=== PATIENT | male | born 1975 | race Caucasian/White ===

== ENCOUNTER 2018-08-28 21:07 | Outpatient (REF) | payer OTHER, SELFPAY ==
[2018-08-28 21:29] LABS: Cholesterol 181 mg/dL (50-200); Glucose 98 mg/dL (70-100); HDL Cholesterol 30 mg/dL (40-60); LDL CHOLESTEROL 113 mg/dL (<100); Triglyceride 315 mg/dL (30-150)
[2018-08-28 21:30] LABS: Hemoglobin A1C 5.5 % (4.5-6.2)
== END 2018-08-28 21:27 ==
LOC: NCHCN 21:07
PROVIDERS: PCP Internal Medicine; Visit Provider Internal Medicine
DX: R73.9 Hyperglycemia, unspecified (principal)
CPT/HCPCS: 80061; 82947; 83721; 83036

== ENCOUNTER 2018-11-25 19:15 | Emergency (ER) | payer OTHER, SELFPAY ==
[2018-11-25] VITALS (37 sets, daily range): BP systolic 133–176; BP diastolic 72–108; PULSE 70–91; RESP 9–27; TEMP 36.9; O2SAT 90–98
[2018-11-25] MEDS: Ondansetron 4 MG/2 ML VIAL (19:49)
--- NOTE | 2018-11-25 19:54 | ED.GENADUL_ITS ---
Discharge Plan Disposition Patient Disposition: HOME Condition: Good Discharge Details Chief Complaint: Chest Pain Clinical Impression: Chest pain Primary Care Provider: Ryne Harris ED Provider: Chaim Colvin Meds and New Rx's Prescriptions: Continued Chantix 0.5 mg Tablet 0.5 mg PO DAILY RF: 0 Discharge Instructions Instructions: Chest Pain (ED) Additional Instructions: Please call your primary care tomorrow for follow-up. You should probably get an outpatient stress test but your workup tonight does not suggest any acute pathology. CT scan was negative. EKG was normal. Cardiac enzymes x2 were normal. Please return to the emergency department for new or worsening pain, shortness of breath, persistent vomiting, fever, other concerns. Referrals: Ryne Harris MD [Primary Care Provider] - Medical Decision Making <Nixon Woodard MD - Last Filed: 11/25/18 20:14> 43-year-old male presents from home complaining of the abrupt onset of substernal chest discomfort that radiates to his back. He states he began with nausea and an episode of emesis following which the epigastric discomfort increased. He arrives with hypertension and otherwise normal vital signs. He is somewhat tender in epigastrium on palpation. Diagnosis would include for the pathology such as pancreatitis, biliary colic, as well as ACS or aortic dissection. Patient IV access established, given parenteral medications comfort for laboratory testing EKG and CT imaging. Case to be signed out to Dr. Colvin pending his diagnostic studies. Please see his note regarding the patient's diagnostic studies and disposition. Lab Data Lab results reviewed: Yes I reviewed the patient's lab results. Laboratory Results - last 24 hr 11/25/18 11/25/18 11/25/18 19:25 19:25 19:25 WBC 13.71 H RBC 5.11 Hgb 16.8 Hct 46.6 MCV 91.2 MCH 32.9 MCHC 36.1 H RDW 12.6 Plt Count 255 MPV 9.5 Immature Gran % 0.2 Neutrophils % 69.2 Lymphocytes % 23.3 Monocytes % 6.3 Eosinophils % 0.7 Basophils % 0.3 Absolute Neutrophils 9.49 H Absolute Lymphocytes 3.19 Absolute Monocytes 0.86 H Absolute Eosinophils 0.10 Absolute Basophils 0.04 APTT 24.0 Sodium 137 Potassium 3.5 Chloride 100 Carbon Dioxide 25.8 Anion Gap 11.2 H BUN 15 Creatinine 1.00 Estimated GFR/1.73 m2 >= 60.00 Glucose 93 Calcium 9.0 Magnesium 1.7 L Total Bilirubin 0.5 AST 24 ALT 63 Alkaline Phosphatase 81 Troponin I 0.03 Total Protein 7.7 Albumin 4.3 Lipase 11/25/18 19:25 WBC RBC Hgb Hct MCV MCH MCHC RDW Plt Count MPV Immature Gran % Neutrophils % Lymphocytes % Monocytes % Eosinophils % Basophils % Absolute Neutrophils Absolute Lymphocytes Absolute Monocytes Absolute Eosinophils Absolute Basophils APTT Sodium Potassium Chloride Carbon Dioxide Anion Gap BUN Creatinine Estimated GFR/1.73 m2 Glucose Calcium Magnesium Total Bilirubin AST ALT Alkaline Phosphatase Troponin I Total Protein Albumin Lipase 108 HPI <Nixon Woodard MD - Last Filed: 11/25/18 20:14> General Mode of arrival: ambulatory . Date/Time Provider Initiated Documentation: 11/25/18 19:17 . Limitations to Documentation: no limitations . Information obtained by: patient and family . History of Present Illness 43 year old M presents to the emergency department with the chief complaint of Chest pain beginning at 7 that began after vomiting, described as moderate, Quality is described as aching, and is localized to the chest. Patient reports no radiation. Patient started experiencing this hour(s) and it has been constant. No relieving factors improve symptom(s), No exacerbating factors reported . Patient notes nausea/vomiting. Patient did receive the following treatments prior to arrival, none Related Data Home Medications Medication Instructions Recorded Confirmed Chantix 0.5 mg PO DAILY 11/25/18 11/25/18 Allergies Allergy/AdvReac Type Severity Reaction Status Date / Time aspirin Allergy Intermediate Wheezing Unverified 11/25/18 19:26 General Stated Complaint: Chest Pain MOISE: 2 Review of Systems <Nixon Woodard MD - Last Filed: 11/25/18 20:14> Review of Systems 6 systems reviewed and otherwise negative PFSH <Nixon Woodard MD - Last Filed: 11/25/18 20:14> Social History Smoking/Tobacco Use Status: Current every day Exam <Nixon Woodard MD - Last Filed: 11/25/18 20:14> Narrative Exam Narrative: GEN: awake, alert, oriented 3. Pleasant, well groomed, and anxious. HEAD: Normocephalic, atraumatic ENT: Mucous membranes moist, oropharynx unremarkable, External ear exam unremarkable EYES: PERRL, EOMI NECK: Full ROM, no SAMANTHA, no menigismus CHEST/RESP: Nontender, clear to auscultation bilateral, no wheeze/rhonchi/rales CARDIOVASCULAR: RRR, no murmur, rub sudarshan. 2+ Rad pulse bilateral ABDOMEN: Soft, nontender, no mass. +Bowel sounds EXT: Full ROM, no edema, no rash Neuro: Grossly normal neurologic exam, conversant, interactive. Psych: Speech fluent, thoughts congruent, affect anxious Course <Nixon Woodard MD - Last Filed: 11/25/18 20:14> Vital Signs Temperature 36.9 C 11/25/18 19:23 Pulse 74 11/25/18 19:23 Respiratory Rate 22 11/25/18 19:23 Blood Pressure 162/100 H 11/25/18 19:23 Pulse Oximetry 98 11/25/18 19:23 Temperature 36.9 C 11/25/18 19:23 Temperature Source Temporal Artery Scan 11/25/18 19:23 Pulse 74 11/25/18 19:23 Respiratory Rate 16 11/25/18 19:27 Respiratory Effort Non-Labored 11/25/18 19:27 Respiratory Depth Normal 11/25/18 19:27 Respiratory Pattern Normal 11/25/18 19:27 Blood Pressure 162/100 H 11/25/18 19:23 Blood Pressure Position Sitting 11/25/18 19:23 Pulse Oximetry 98 11/25/18 19:23 Oxygen Delivery Method Room Air 11/25/18 19:23 Oxygen Flow Rate 0 11/25/18 19:23 Pain Level 8 11/25/18 19:27 Sign Out <Nixon Woodard MD - Last Filed: 11/25/18 20:14> Sign Out Data: Sign Out Comment: Please follow-up diagnostics Last updated by Nixon Woodard MD at 11/25/18 20:17 Post-Handoff Eval: Patient had presented with episode of vomiting, followed by chest and epigastric pain with radiation to the back. Initially seen by Dr. Woodard, please see his history and physical as documented. Patient signed out to me pending diagnostic studies. Initial EKG is normal. Patient's laboratory studies are unremarkable. He does have a little bit of a white count of 13.7. Magnesium a little low at 1.7 nothing significant. First troponin negative. Patient sent to CT scan. CTA of the chest abdomen pelvis negative for PE, dissection, any significant pathology. He is noted to have hepatic cyst. On reevaluation patient is doing much better. Minimal pain. He does have some epigastric discomfort. He is given a GI cocktail and IV Pepcid pending his second troponin. Patient second EKG remains normal. Second troponin remains negative. HEART score is 1 for risk factors, and he is considered safe for discharge with outpatient follow up. Probably should get outpatient stress test. Follow up with PCP, call tomorrow. Return to ED for worsening pain, shortness of breath, fever, vomiting, other problems.
--- NOTE | 2018-11-25 19:56 | DI.CT_ITS ---
SYMPTOM/DIAGNOSIS: EPIGASTRIC PAIN, HYPERTENSION, RADIATES TO BACK CTA CHEST AND ABDOMEN: The study was carried out according to the usual protocol with an intravenous administration of 100 cc Omnipaque 350.stered. Note is made of cardiac motion, induced artifact which slightly limits the evaluation of the proximal thoracic aorta. There is no evidence of an aortic aneurysm, dissection or rupture. One could further consider a gaited angiogram of the chest if clinically appropriate. Calcified granuloma are noted in the right upper lobe. The lungs are otherwise clear. There is no pulmonary consolidation. There is no evidence of a pneumothorax or pleural effusion. The mediastinum is intact with no evidence of a mass or hematoma. There is no evidence of lymphadenopathy. The bony structures are unremarkable. No acute abnormality seen. The soft tissues are unremarkable. CTA ABDOMEN: 100 cc Omnipaque 350 was administered intravenously for this examination. The lungs are unremarkable. The aorta is normal. The mesenteric and celiac arteries are intact with no evidence of occlusion or stenosis. Evaluation of the abdomen reveals normal appearing renal arteries. There is a 19 mm cyst in the anterior segment of the right hepatic lobe and 2 or 3 other tiny low density lesions which are too small to fully characterize are identified in the liver. There is no evidence of biliary dilatation. The gallbladder is normal. There are no stones or ductal dilatation. The pancreas is normal. The spleen is normal. The adrenals are normal. The kidneys are normal. There is no abnormality involving the stomach or bowel. Nothing to suggest obstruction, mucosal thickening or a mass. The intraperitoneal space is unremarkable. There is no evidence of free air or free fluid. The bony structures are unremarkable. There is no evidence of a fracture, subluxation or dislocation. 12 mm hernia containing fat is noted within the midline of the anterior abdominal wall located approximately 7 cm above the umbilicus. There is a tiny umbilical hernia containing fat. There is no evidence of lymphadenopathy. SUMMARY: No acute abnormality is demonstrated. As noted above, hepatic cysts too small to characterize are demonstrated. The findings should be correlated with the patient's clinical status and if appropriate further assessment of the liver could be obtained with ultrasound and/or CT as needed.
[2018-11-25 19:57] LABS: Abs Immature Grans 0.03 k/cumm (0.0-0.09); Absolute Basophil Count 0.04 k/cumm (0.0-0.2); Basophils % 0.3; Eosinophils % 0.7; HCT 46.6 % (40.0-50.0); HGB 16.8 g/dL (13.5-17.5); Immature Grans % 0.2; Lymphocytes % 23.3; Mean Corp. HGB Concentration 36.1 g/dL (32.0-36.0); Mean Corpuscular Hemoglobin 32.9 pg (27.0-33.0); Mean Corpuscular Volume 91.2 fL (80-95); Mean Platelet Volume 9.5 fL (8.0-11.0); Monocytes % 6.3; Neutrophils % 69.2; Platelet Count 255 x1000/uL (130-400); RBC 5.11 m/cumm (4.50-6.00); RBC Distribution Width 12.6 % (11.8-14.1); White Blood Cell Count 13.71 k/cumm (4.4-10.8)
[2018-11-25 20:06] LABS: Absolute Lymphocyte Count 3.19 k/cumm (1.2-3.4); Absolute Monocyte Count 0.86 k/cumm (0.11-0.7); Absolute Neutrophil Count 9.49 k/cumm (1.2-6.7)
[2018-11-25 20:10] LABS: ALT 63 U/L (12-78); AST 24 U/L (15-37); Albumin 4.3 g/dL (3.4-5.0); Alkaline Phosphatase 81 U/L (46-116); Anion Gap 11.2 mmol/L (3-11); BUN 15 mg/dL (7-18); Bilirubin, Total 0.5 mg/dL (0.2-1.0); CO2 25.8 mmol/L (21.0-32.0); Chloride 100 mmol/L (98-107); Glucose 93 mg/dL (70-100); Magnesium 1.7 mg/dL (1.8-2.4); Potassium 3.5 mmol/L (3.5-5.1); Sodium 137 mmol/L (136-145); Total Protein 7.7 g/dL (6.4-8.2); Troponin I 0.03 ng/mL (0.00-0.06)
[2018-11-25 20:14] LABS: Lipase 108 U/L (73-393)
[2018-11-25] MEDS: Normal Saline Flush 10 ML SYR IVP (20:26)
[2018-11-25] MEDS: HYDROmorphone 2 MG/ML VIAL 1 MG IVP (20:26)
--- NOTE | 2018-11-25 21:18 | DI.VRAD_ITS ---
EXAM: CT Angiography Chest With Contrast EXAM DATE/TIME: 11/25/2018 7:57 PM CLINICAL HISTORY: 43 years old, male; Pain; Other: Epigastric pain hypertension radiates to back; Abdominal pain TECHNIQUE: Axial computed tomographic angiography images of the chest with intravenous contrast using CT angiography protocol. 3D reconstructed images were created and reviewed. COMPARISON: CR PORTABLE CHEST ONE VIEW 07/12/2015 10:34 AM FINDINGS: Pulmonary arteries: No central pulmonary emboli. Aorta: Cardiac motion induced artifact slightly limits evaluation of the proximal thoracic aorta. No aortic dissection or rupture is identified. Consider gated CT angiogram of the chest as clinically needed. Lungs: Calcified granuloma within the right upper lobe (axial image #159 of series 4). The lungs are otherwise clear. No pulmonary consolidation. Pleural space: Normal. No pneumothorax. No pleural effusion. Heart: Normal. No cardiomegaly. No pericardial effusion. Mediastinum: No mediastinal hematoma or mass. Lymph nodes: Unremarkable. No enlarged lymph nodes. Bones/joints: Unremarkable. No acute fracture. Soft tissues: Unremarkable. IMPRESSION: No acute abnormality. EXAM: CT Angiography Abdomen With Contrast EXAM DATE/TIME: 11/25/2018 7:57 PM CLINICAL HISTORY: 43 years old, male; Pain; Other: Epigastric pain hypertension radiates to back; Abdominal pain TECHNIQUE: Axial computed tomographic angiography images of the abdomen with intravenous contrast material, including non-contrast images if performed. MIP and/or 3D reconstructed images were created and reviewed. 3D reconstructed images were created and reviewed. CONTRAST: 100 ml of omni 350 administered intravenously. COMPARISON: CR PORTABLE CHEST ONE VIEW 07/12/2015 10:34 AM FINDINGS: Lungs: Unremarkable. No consolidation. VASCULATURE: Aorta: No aortic aneurysm. No aortic dissection. Celiac trunk and mesenteric arteries: No occlusion or significant stenosis. Renal arteries: No occlusion or significant stenosis. ABDOMEN: Liver: 19 mm cyst in the anterior segment of the right hepatic lobe. 2 or 3 other tiny low-density lesions which are too small to accurately characterize within the liver. No intrahepatic bile that dilatation. Gallbladder and bile ducts: Normal. No calcified stones. No ductal dilation. Pancreas: Normal. No ductal dilation. Spleen: Normal. No splenomegaly. Adrenals: Normal. No mass. Kidneys and ureters: Normal. No hydronephrosis. Stomach and bowel: Unremarkable. No obstruction. No mucosal thickening. Intraperitoneal space: Unremarkable. No free air. No significant fluid collection. Bones/joints: Unremarkable. No acute fracture. No dislocation. Soft tissues: 12 mm hernia containing fat within the midline of the anterior abdominal wall located approximately 7 cm above the umbilicus. Tiny umbilical hernia containing fat. Lymph nodes: Unremarkable. No enlarged lymph nodes. IMPRESSION: 1. No acute abnormality. 2. Hepatic cysts and too small to characterize hepatic low density lesions. Dictated and Authenticated by: Andrez Andrade MD. Ordering:JOE Alicea MD
[2018-11-25] MEDS: FAMOTIDINE 20 MG/50 ML BAG 200 MG IVPB (21:42)
[2018-11-25 22:50] LABS: Troponin I 0.04 ng/mL (0.00-0.06)
== END 2018-11-25 23:16 | disposition home or self-care (01) ==
PROVIDERS: Emergency Medicine; Emergency Provider Emergency Medicine; PCP Internal Medicine
DX: R07.9 Chest pain, unspecified (principal); I10 Essential (primary) hypertension; F17.210 Nicotine dependence, cigarettes, uncomplicated
CPT/HCPCS: 36415; 71275; 74175; 80053; 83690; 93005; 96374; 96375; 99285; 83735; 84484; 85025; 85730; 93010; 99284; J2405

== ENCOUNTER 2019-03-13 08:11 | Emergency (ER) | payer OTHER, SELFPAY ==
[2019-03-13] VITALS (56 sets, daily range): BP systolic 121–192; BP diastolic 67–112; PULSE 66–102; RESP 8–34; TEMP 36.9; O2SAT 95–100
--- NOTE | 2019-03-13 08:18 | DI.CT_ITS ---
SYMPTOM/DIAGNOSIS: LT SIDED WEAKNESS CRANIAL CT (WITHOUT CONTRAST): A noncontrast cranial CT was performed. The ventricular system is normal in appearance. There is no evidence of an intracranial mass lesion. There is no evidence of a subdural or epidural hematoma. No focal areas of decreased attenuation are seen. CONCLUSION: Normal noncontrast Cranial CT.
--- NOTE | 2019-03-13 08:24 | DI.VRAD_ITS ---
EXAM: CT Head Without Contrast EXAM DATE/TIME: 03/13/2019 8:11 AM CLINICAL HISTORY: 43 years old, male; Signs and symptoms; Weakness, extremity; Left TECHNIQUE: Imaging protocol: Axial computed tomography images of the head/brain without contrast. Coronal and sagittal reformatted images were created and reviewed. STROKE PROTOCOL was implemented. Radiation optimization: All CT scans at this facility use at least one of these dose optimization techniques: automated exposure control; mA and/or kV adjustment per patient size (includes targeted exams where dose is matched to clinical indication); or iterative reconstruction. COMPARISON: CT HEAD WITHOUT CONTRAST 12/26/2013 12:28 PM FINDINGS: Brain: Normal. No hemorrhage. No significant white matter disease. No edema. Ventricles: Normal. No ventriculomegaly. Bones/joints: Unremarkable. No acute fracture. Sinuses: Opacities in the ethmoid sinuses may represent mild sinusitis. Mastoid air cells: Visualized mastoid air cells are unremarkable. No mastoid effusion. Soft tissues: Unremarkable. IMPRESSION: Opacities in the ethmoid sinuses may represent mild sinusitis. No acute intracranial hemorrhage No evidence of infarction ASSESSMENT: ASPECTS ([place] Stroke Program Early CT Score) is 10 Dictated and Authenticated by: Lena Nascimento MD. Ordering:KAVITA Leiva MD
[2019-03-13] MEDS: Normal Saline 1,000 ML 1000 ML IV (08:30)
[2019-03-13] MEDS: Labetalol 100 MG/20 ML VIAL 20 MG IVP (08:35)
[2019-03-13] MEDS: Prochlorperazine 10 MG/2 ML VIAL IVP (08:37)
[2019-03-13] MEDS: Omnipaque 350 MG/ML 100 ML BTL 85 ML IJ (08:39)
[2019-03-13] MEDS: fentaNYL 100 MCG/2 ML VIAL (08:40)
[2019-03-13 08:41] LABS: Abs Immature Grans 0.01 k/cumm (0.0-0.09); Absolute Basophil Count 0.02 k/cumm (0.0-0.2); Absolute Lymphocyte Count 1.88 k/cumm (1.2-3.4); Absolute Monocyte Count 0.61 k/cumm (0.11-0.7); Absolute Neutrophil Count 5.37 k/cumm (1.2-6.7); Basophils % 0.3; Eosinophils % 1.3; HCT 43.5 % (40.0-50.0); HGB 15.2 g/dL (13.5-17.5); Immature Grans % 0.1; Lymphocytes % 23.5; Mean Corp. HGB Concentration 34.9 g/dL (32.0-36.0); Mean Corpuscular Hemoglobin 32.4 pg (27.0-33.0); Mean Corpuscular Volume 92.8 fL (80-95); Mean Platelet Volume 9.4 fL (8.0-11.0); Monocytes % 7.6; Neutrophils % 67.2; Platelet Count 248 x1000/uL (130-400); RBC 4.69 m/cumm (4.50-6.00); RBC Distribution Width 12.3 % (11.8-14.1); White Blood Cell Count 7.99 k/cumm (4.4-10.8)
[2019-03-13 08:48] LABS: Anion Gap 8.7 mmol/L (3-11); BUN 17 mg/dL (7-18); CO2 27.3 mmol/L (21.0-32.0); CREATININE 1.04 mg/dL (0.70-1.30); Calcium 8.8 mg/dL (8.5-10.1); Chloride 104 mmol/L (98-107); Glucose 116 mg/dL (70-100); Potassium 3.9 mmol/L (3.5-5.1); Sodium 140 mmol/L (136-145)
--- NOTE | 2019-03-13 08:52 | DI.CT_ITS ---
SYMPTOM/DIAGNOSIS: LT SIDED WEAKNESS CERVICOCRANIAL CTA: CT angiography was performed with multi slice acquisition and multi planar and 3D reconstruction. CT angiography of the craniocervical region was performed. Images obtained through the lung apices are unremarkable. No mediastinal mass or adenopathy identified. The common internal and external carotid arteries are normal in appearance with no evidence of aneurysm, stenosis or dissection. Left vertebral artery is unremarkable throughout its course although small in diameter. Right vertebral artery is intact proximally. There is a fusiform aneurysm of the right vertebral artery measuring up to about 8 mm. in diameter just proximal to the basilar artery. No additional findings in the posterior circulation. There is a 5 mm. in diameter anterior communicating artery aneurysm projecting inferiorly and anteriorly. No other intracranial aneurysm, dissection or stenosis identified. CONCLUSION: 1. 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 2. 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
--- NOTE | 2019-03-13 09:16 | DI.VRAD_ITS ---
EXAM: CT Angiography Head With Contrast EXAM DATE/TIME: 03/13/2019 8:22 AM CLINICAL HISTORY: 43 years old, male; Signs and symptoms; Weakness; Patient HX: Patient unable to feel left side, arms or legs, er doctor wanted the images down to the arch and bifurcation of vessels. TECHNIQUE: Imaging protocol: Axial computed tomographic angiography images of the head with intravenous contrast using CT angiography protocol. Coronal reformatted images were created and reviewed. 3D rendering: MIP reconstructed images were created and reviewed. Radiation optimization: All CT scans at this facility use at least one of these dose optimization techniques: automated exposure control; mA and/or kV adjustment per patient size (includes targeted exams where dose is matched to clinical indication); or iterative reconstruction. Contrast material: omnipaque 350 Contrast volume: 85 ml Contrast route: iv COMPARISON: CT HEAD 03/13/2019 8:14 AM FINDINGS: Right internal carotid artery: No stenosis, occlusion, or aneurysm. Right anterior cerebral artery: There is a 5 mm aneurysm projecting off of the anterior communicating artery. The aneurysm points inferiorly. No stenosis or occlusion. Right middle cerebral artery: No stenosis, occlusion, or aneurysm. Right posterior cerebral artery: No stenosis, occlusion, or aneurysm. Right vertebral artery: Fusiform aneurysm of the V4 segment, measuring approximately 8 mm in diameter. No stenosis or occlusion. Left internal carotid artery: No stenosis, occlusion, or aneurysm. Left anterior cerebral artery: There is a 5 mm aneurysm projecting off of the anterior communicating artery. The aneurysm points anteriorly and inferiorly. No stenosis or occlusion. Left middle cerebral artery: No stenosis, occlusion, or aneurysm. Left posterior cerebral artery: No stenosis, occlusion, or aneurysm. Left vertebral artery: No stenosis, occlusion, or aneurysm. Basilar artery: No stenosis, occlusion, or aneurysm. IMPRESSION: 1. No stenosis or occlusion. 2. 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 EXAM: CT Angiography Neck With Contrast EXAM DATE/TIME: 03/13/2019 8:22 AM CLINICAL HISTORY: 43 years old, male; Signs and symptoms; Weakness; Patient HX: Patient unable to feel left side, arms or legs, er doctor wanted the images down to the arch and bifurcation of vessels. TECHNIQUE: Imaging protocol: Axial computed tomographic angiography images of the neck with intravenous contrast using CT angiography protocol. Coronal reformatted images were created and reviewed. 3D rendering: MIP reconstructed images were created and reviewed. Radiation optimization: All CT scans at this facility use at least one of these dose optimization techniques: automated exposure control; mA and/or kV adjustment per patient size (includes targeted exams where dose is matched to clinical indication); or iterative reconstruction. COMPARISON: No relevant prior studies available. FINDINGS: VASCULATURE: Right common carotid artery: No stenosis, occlusion, or dissection. Right internal carotid artery: No stenosis, occlusion, or dissection. Carotid loop. Right external carotid artery: No stenosis, occlusion, or dissection. Right vertebral artery: No stenosis, occlusion, or dissection. Left common carotid artery: No stenosis, occlusion, or dissection. Left internal carotid artery: No stenosis, occlusion, or dissection. Carotid loop. Left external carotid artery: No stenosis, occlusion, or dissection. Left vertebral artery: No stenosis, occlusion, or dissection. NECK: Bones/joints: No acute osseous abnormality. Soft tissues: Enlarged left lobe of the thyroid with a 5 mm cyst or nodule. The right lobe is absent. IMPRESSION: No stenosis, occlusion, or dissection. COMMENT: Reference per NASCET criteria for degree of stenosis: Mild: less than 50% stenosis. Moderate: 50-69% stenosis. Severe: 70-94% stenosis. Near occlusion: 95-99% stenosis. Dictated and Authenticated by: Mario Fan MD. Ordering:KAVITA Lieva MD
--- NOTE | 2019-03-13 10:32 | ED.GENADUL_ITS ---
Discharge Plan Discharge Details Chief Complaint: CVA/TIA Primary Care Provider: Ryne Harris ED Provider: Cali Fishman Home Meds and New Rx's Prescriptions: No Action No Known Home Meds RF: 0 Medical Decision Making 43-year-old gentleman with an unremarkable past medical history who was transported here via EMS after developing a sudden onset of left-sided head pain, confusion, and then left upper and lower extremity dysfunction. Normal vital signs except for blood pressure on arrival with a normal EKG/rhythm strip. Initial blood pressure 192/101. Nonfocal exam except for confusion and persistent inability to move left upper and lower extremity. Onset is in the setting of low-grade mid abdominal pain over the past 3 days. Bedside cardiac and abdominal ultrasound negative for evidence of pericardial effusion, dilated aortic arch, or evidence of a distal dissection flap/aneurysm below the diaphragm. Emergent noncontrast head CT negative. Subsequent CTA head and neck with conclusion of the aortic arch to the julianna is negative for evidence of vascular dissection or occlusion. Labs nondiagnostic. Patient empirically treated with IV crystalloid, 20 mg of IV labetalol, 10 mg of IV prochlor perazine, and 100 mcg IV fentanyl. Gradual clinical improvement with resolution of head pain, repeat blood pressure = 140/85, and increased use/sensation of his left upper and lower extremities. Full repeat neurological exam after symptomatic improvement is nonfocal. However, because of patient's atypical presentation of headache and focal extremity weakness, advanced imaging warranted. Discussed case with [facility] neurologist, Dr. Plunkett, who accepted Mr. Nice for transfer. Patient transferred to [facility] for further evaluation and management. Pt evaluated immediately prior to transfer with improved symptoms, normal vital signs, and tolerating PO. Discussed clinical/diagnostic findings and recommendation of transfer to [facility]. Multiple re-evaluations with patient remaining stable and is stable for transport via EMS. Medical Records Medical records reviewed: Yes I reviewed the patient's medical records. Imaging Data Radiologic Study: Attestation: I personally reviewed and interpreted this imaging study as follows: Imaging: CT Scan (Noncontrast head CT) My impression: No acute intracranial hemorrhage or intracranial process appreciated. Interpreted independently and contemporaneously by myself. Reviewed radiology report. Radiologist's impression: Same Radiologic Study #2: Attestation: I personally reviewed and interpreted this imaging study as follows: Imaging: CT Scan (CT anterior head and neck with aortic arch included.) My impression: No evidence of vascular dissection or occlusion. Interpreted independently and contemporaneously by myself. Reviewed radiology report. Radiologist's impression: Same Lab Data Lab results reviewed: Yes I reviewed the patient's lab results. Lab results narrative: Lab Results 03/13/19 03/13/19 Range/Units 07:30 07:30 WBC 7.99 (4.4-10.8) k/cumm RBC 4.69 (4.50-6.00) m/cumm Hgb 15.2 (13.5-17.5) g/dL Hct 43.5 (40.0-50.0) % MCV 92.8 (80-95) fL MCH 32.4 (27.0-33.0) pg MCHC 34.9 (32.0-36.0) g/dL RDW 12.3 (11.8-14.1) % Plt Count 248 (130-400) x1000/uL MPV 9.4 (8.0-11.0) fL Immature Gran % 0.1 Neutrophils % 67.2 Lymphocytes % 23.5 Monocytes % 7.6 Eosinophils % 1.3 Basophils % 0.3 Absolute Neutrophils 5.37 (1.2-6.7) k/cumm Absolute Lymphocytes 1.88 (1.2-3.4) k/cumm Absolute Monocytes 0.61 (0.11-0.7) k/cumm Absolute Eosinophils 0.10 (0.0-0.7) k/cumm Absolute Basophils 0.02 (0.0-0.2) k/cumm Sodium 140 (136-145) mmol/L Potassium 3.9 (3.5-5.1) mmol/L Chloride 104 (98-107) mmol/L Carbon Dioxide 27.3 (21.0-32.0) mmol/L Anion Gap 8.7 (3-11) mmol/L BUN 17 (7-18) mg/dL Creatinine 1.04 (0.70-1.30) mg/dL Estimated GFR/1.73 m2 >= 60.00 (mL/min/1.73m2) Glucose 116 H (70-100) mg/dL Calcium 8.8 (8.5-10.1) mg/dL ECG Data Attestation: I personally reviewed and interpreted this ECG (s) as follows: Prior ECG tracings: not available for review Interpretation: NSR 80 bpm. Normal axis and intervals no acute ST changes. Interpreted independently and contemporaneously by myself. HPI 43-year-old gentleman with an unremarkable past medical history transported here via EMS after developing a sudden severe headache, confusion, and left upper/lower extremity weakness. On arrival patient is confused and repeating himself. According to actuarial clerk and later his girlfriend, he was in his usual state of health this morning when he commented that he did not feel good and then developed a severe left-sided headache. His girlfriend assisted him to the bathroom where he had one episode of diarrhea and then towards her bedroom when he fell forward onto their bed and became more altered with verbalization that he was unable to move his upper or lower extremity. On initial EMS assessment, he had normal vital signs, was confused, and was not moving his upper and lower extremity voluntarily. En route, he had 2 brief episodes of unresponsiveness which responded to external stimulus. On arrival here, he endorses having a severe left-sided headache and is unable to move his left upper and lower extremities with associated subjective numbness. He otherwise denies fever/chills, neck pain or stiffness, visual changes, hearing loss, difficulty w ith speech, chest pain, palpitations, dyspnea. He has had mild mid periumbilical abdominal pain for the past few days which has been stable and has not been associated with any change in bowel habits melena, hematochezia until this morning when one episode of diarrhea. He denies urinary symptoms. He has a remote history of posterior occipital migraines as a teenager but denies any recent recurrent headache syndromes. General Date/Time Provider Initiated Documentation: 03/13/19 09:31 . Related Data Home Medications Medication Instructions Recorded Confirmed Unknown [No Known Home Meds] 03/13/19 03/13/19 Allergies Allergy/AdvReac Type Severity Reaction Status Date / Time aspirin Allergy Intermediate Wheezing Unverified 03/13/19 08:26 General Stated Complaint: CVA/TIA MOISE: 2 Review of Systems Review of Systems All systems are reviewed and are unremarkable except as noted in HPI and below: CONSTITUTIONAL: no fevers/chills HEENT: Severe left-sided headache, confusion, no throat pain or difficulty swallowing; no neck pain CARDIOVASCULAR: no chest pain, palpitations, leg swelling, or diaphoresis RESPIRATORY: no cough, dyspnea, wheezing GASTROINTESTINAL: no abdominal pain, melena, nausea/emesis GENITOURINARY: no dysuria, flank pain, MUSCULOSKELETAL: no pack pain, myalgias, arthralgias INTEGUMENTARY: no rash, no wounds NEUROLOGIC: headache, focal left upper extremity and left lower extremity weakness (unable to spontaneously move extremities) with subjective numbness, no change in hearing, vision, or speech. PSYCHIATRIC: Confusion, mild agitation with repetitive questioning HEME: no easy bruising or bleeding ALLERGIC: no urticaria PFSH Social History Smoking/Tobacco Use Status: Former Tobacco Use Alcohol Intake: never Drug use: Socially Substance use type: marijuana Do you feel safe in your relationship?: Yes Exam Narrative Exam Narrative: Nursing note and vital signs have been reviewed and noted. GENERAL: alert, well -hydrated, well-nourished; anxious/agitated HEENT: atraumatic/normocephalic, PERRLA, EOMI, conjunctiva clear, external ears/canals normal, nasal mucosa normal NECK: supple, full range of motion, no mass, normal lymphadenopathy, no thyromegaly CARDIOVASCULAR: RRR, no murmurs, nl pulses, no edema PULMONARY: nl effort, no audible wheezing or stridor, nl breath sounds with no focal deficit. no chest wall tenderness ABDOMEN: soft, non-tender, non-distended, no mass, no organomegaly EXTREMITY: normal muscle tone, all joints with FROM, no deformity or tenderness SKIN: no exanthem appreciated NEURO: Full normal exam except for left upper extremity and lower extremity weakness: Unable to move extremities spontaneously. No response to painful stimulus when performing the left Babinski however, bilateral downward Babinski's and normal reflexes. PSYCH: alert; initially disoriented with repetitive questioning about his location, later alert and appropriate with normal insight, Course Vital Signs Pulse 78 03/13/19 08:14 Blood Pressure 192/101 H 03/13/19 08:14 Temperature 98.4 F 03/13/19 08:23 Temperature Source Temporal Artery Scan 04/13/19 08:23 Pulse 71 03/13/19 09:31 Pulse 73 03/13/19 09:31 Respiratory Rate 20 03/13/19 09:31 Respiratory Effort Non-Labored 03/13/19 08:29 Respiratory Depth Normal 03/13/19 08:29 Respiratory Pattern Normal 03/13/19 08:29 Blood Pressure 145/82 H 03/13/19 09:31 Blood Pressure Mean 98 03/13/19 09:31 Blood Pressure Position Supine 03/13/19 08:23 Pulse Oximetry 97 03/13/19 09:31 Oxygen Delivery Method Room Air 03/13/19 08:23 Oxygen Flow Rate 0 03/13/19 08:23 Pain Level 10 03/13/19 08:23 Lab/Test Results Lab/Test Results: Laboratory Tests Range/Units 03/13/19 03/13/19 07:30 07:30 WBC (4.4-10.8) k/cumm 7.99 RBC (4.50-6.00) m/cumm 4.69 Hgb (13.5-17.5) g/dL 15.2 Hct (40.0-50.0) % 43.5 MCV (80-95) fL 92.8 MCH (27.0-33.0) pg 32.4 MCHC (32.0-36.0) g/dL 34.9 RDW (11.8-14.1) % 12.3 Plt Count (130-400) x1000/uL 248 MPV (8.0-11.0) fL 9.4 Immature Gran % 0.1 Neutrophils % 67.2 Lymphocytes % 23.5 Monocytes % 7.6 Eosinophils % 1.3 Basophils % 0.3 Absolute Neutrophils (1.2-6.7) k/cumm 5.37 Absolute Lymphocytes (1.2-3.4) k/cumm 1.88 Absolute Monocytes (0.11-0.7) k/cumm 0.61 Absolute Eosinophils (0.0-0.7) k/cumm 0.10 Absolute Basophils (0.0-0.2) k/cumm 0.02 Sodium (136-145) mmol/L 140 Potassium (3.5-5.1) mmol/L 3.9 Chloride (98-107) mmol/L 104 Carbon Dioxide (21.0-32.0) mmol/L 27.3 Anion Gap (3-11) mmol/L 8.7 BUN (7-18) mg/dL 17 Creatinine (0.70-1.30) mg/dL 1.04 Estimated GFR/1.73 m2 (mL/min/1.73m2) >= 60.00 Glucose (70-100) mg/dL 116 H Calcium (8.5-10.1) mg/dL 8.8
== END 2019-03-13 13:25 ==
LOC: ER 09:21
PROVIDERS: Emergency Provider Emergency Medicine; PCP Internal Medicine
DX: R41.0 Disorientation, unspecified (principal); M54.2 Cervicalgia; R53.1 Weakness
CPT/HCPCS: 36415; 36416; 70496; 70498; 80048; 82962; 96361; 96374; 96375; 99285; 70450; 85025; 99284; J0780; J3010; J3490

== ENCOUNTER 2020-01-30 09:19 | Emergency (ER) | payer OTHER, SELFPAY ==
[2020-01-30] VITALS (38 sets, daily range): BP systolic 114–161; BP diastolic 72–106; PULSE 72–90; RESP 12–29; TEMP 36.1–36.6; O2SAT 84–100
--- NOTE | 2020-01-30 09:30 | DI.CT_ITS ---
EXAM: CT BRAIN CTA CLINICAL HISTORY: Recent history of aneurysm coil, headache, dizzy TECHNIQUE: Post IV contrast. Axial CT angiography was performed with multi-slice acquisition and multi-planar and/or 3D reconstruc tions. COMPARISON: CT BRAIN NECK CTA from 03/13/2019 FINDINGS: Aneurysm coil creates artifact in the supraclinoid region. No vascular occlusion or significant rashid nosis is seen. IMPRESSION: Status post aneurysm coiling. No evidence of vascular occlusion.
--- NOTE | 2020-01-30 09:30 | DI.CT_ITS ---
EXAM: CT HEAD WO CLINICAL HISTORY: Dizzy, headache, recent aneurysm surgery COMPARISON: CT BRAIN NECK CTA from 03/13/2019 CT HEAD FOR STROKE PROTOCOL from 03/13/2019 CT BRAIN CTA from 01/30/2020 FINDINGS: An aneurysm clip or coil is now seen in the supraclinoid region related to previous anterior communic ating artery aneurysm. No acute hemorrhage or infarct is seen. The ventricles are normal in size. There is no evidence of skull fracture. A stent is seen in the distal right vertebral artery. IMPRESSION: No acute abnormality.
--- NOTE | 2020-01-30 09:31 | DI.RAD_ITS ---
EXAM: XR CHEST 1V IN DI INDICATION: Chest pain COMPARISON: CT thorax abdomen CTA from 11/25/2018 TECHNIQUE: 2D digital imaging was performed. FINDINGS: Heart size is normal. The lungs appear clear. No infiltrate, effusion or pneumothorax is seen. IMPRESSION: No acutedisease. DATA REPOSITORY: RADIATION DOSE DELIVERED:
[2020-01-30 09:43] LABS: Abs Immature Grans 0.03 k/cumm (0.0-0.09); Absolute Basophil Count 0.05 k/cumm (0.0-0.2); Absolute Eosinophil Count 0.11 k/cumm (0.0-0.7); Absolute Lymphocyte Count 4.12 k/cumm (1.2-3.4); Basophils % 0.4; Eosinophils % 0.8; HCT 47.9 % (40.0-50.0); HGB 17.2 g/dL (13.5-17.5); Immature Grans % 0.2 %; Lymphocytes % 30.9; Mean Corp. HGB Concentration 35.9 g/dL (32.0-36.0); Mean Corpuscular Hemoglobin 32.9 pg (27.0-33.0); Mean Corpuscular Volume 91.6 fL (80-95); Mean Platelet Volume 9.2 fL (8.0-11.0); Monocytes % 8.2; Neutrophils % 59.5; Platelet Count 392 x1000/uL (130-400); RBC 5.23 m/cumm (4.50-6.00); RBC Distribution Width 12.4 % (11.8-14.1); White Blood Cell Count 13.34 k/cumm (4.4-10.8)
[2020-01-30 09:45] LABS: Absolute Monocyte Count 1.09 k/cumm (0.11-0.7); Absolute Neutrophil Count 7.94 k/cumm (1.2-6.7)
[2020-01-30] MEDS: Ondansetron 4 MG/2 ML VIAL IVP ×2 (09:46→11:12)
[2020-01-30] MEDS: Normal Saline 1,000 ML 1000 ML IV (09:48)
[2020-01-30] MEDS: LORazepam 2 MG/ML VIAL IVP (09:52)
[2020-01-30 09:56] LABS: Prothrombin Time 10.5 sec (9.3-11.0)
[2020-01-30 10:24] LABS: ALT 60 U/L (16-63); AST 30 U/L (15-37); Albumin 4.5 g/dL (3.4-5.0); Alkaline Phosphatase 77 U/L (46-116); Anion Gap 19.5 mmol/L (3-11); BUN 17 mg/dL (7-18); Bilirubin, Total 1.4 mg/dL (0.2-1.0); CO2 19.5 mmol/L (21.0-32.0); CREATININE 1.23 mg/dL (0.70-1.30); Calcium 9.5 mg/dL (8.5-10.1); Chloride 102 mmol/L (98-107); Glucose 190 mg/dL (74-106); Magnesium 1.7 mg/dL (1.8-2.4); Potassium 3.3 mmol/L (3.5-5.1); Sodium 141 mmol/L (136-145)
[2020-01-30 10:25] LABS: NT-proBNP < 5 pg/mL (<300); Troponin I < 0.05 ng/Ml (<0.06)
[2020-01-30] MEDS: Omnipaque 350 MG/ML 100 ML BTL IJ (11:08)
--- NOTE | 2020-01-30 11:46 | DI.VRAD_ITS ---
PROCEDURE INFORMATION: Exam: CT Head Without Contrast Exam date and time: 01/30/2020 10:53 AM Age: 44 years old Clinical indication: Pain; Headache TECHNIQUE: Imaging protocol: Computed tomography of the head without contrast. COMPARISON: CT HEAD FOR STROKE PROTOCOL 03/13/2019 8:14 AM FINDINGS: Brain: Normal. No hemorrhage. Unremarkable white matter. No mass effect. Ventricles: Normal. No ventriculomegaly. Bones/joints: Unremarkable. No acute fracture. Sinuses: Visualized sinuses are unremarkable. No fluid levels. Mastoid air cells: Visualized mastoid air cells are well aerated. Soft tissues: Unremarkable. Vasculature: Embolization coil in the midline IMPRESSION: No acute intracranial hemorrhage Dictated and Authenticated by: Lena Nascimento MD. Ordering:EMMA Mendenhall MD
--- NOTE | 2020-01-30 11:47 | DI.VRAD_ITS ---
PROCEDURE INFORMATION: Exam: XR Chest, 1 View Exam date and time: 01/30/2020 10:38 AM Age: 44 years old Clinical indication: Other: Dizziness, hadache TECHNIQUE: Imaging protocol: XR of the chest Views: 1 view. COMPARISON: No relevant prior studies available. FINDINGS: Lungs: Unremarkable. No consolidation. Pleural space: Unremarkable. No pleural effusion. No pneumothorax. Heart/Mediastinum: Unremarkable. No cardiomegaly. Bones/joints: Unremarkable. IMPRESSION: No acute findings. Dictated and Authenticated by: Lena Nascimento MD. Ordering:EMMA Mendenhall MD
--- NOTE | 2020-01-30 12:14 | DI.VRAD_ITS ---
PROCEDURE INFORMATION: Exam: CT Angiography Head With Contrast Exam date and time: 01/30/2020 10:53 AM Age: 44 years old Clinical indication: Dizziness and giddiness and headache; Prior surgery; Surgery type: Recent aneurysm surgery TECHNIQUE: Imaging protocol: Computed tomography angiography of the head with intravenous contrast. 3D rendering: MIP and/or 3D reconstructed images were created by the technologist. Contrast material: OMNI 350; Contrast volume: 85 ml; Contrast route: R AC 18G; COMPARISON: CT BRAIN NECK CTA 03/13/2019 8:38 AM FINDINGS: Right internal carotid artery: Unremarkable. Intracranial segment is patent with no significant stenosis. No aneurysm. Right anterior cerebral artery: Unremarkable. No occlusion or significant stenosis. No aneurysm. Right middle cerebral artery: Unremarkable. No occlusion or significant stenosis. No aneurysm. Right posterior cerebral artery: Unremarkable. No occlusion or significant stenosis. No aneurysm. 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 Left internal carotid artery: Unremarkable. Intracranial segment is patent with no significant stenosis. No aneurysm. Left anterior cerebral artery: Unremarkable. No occlusion or significant stenosis. No aneurysm. Left middle cerebral artery: Unremarkable. No occlusion or significant stenosis. No aneurysm. Left posterior cerebral artery: Unremarkable. No occlusion or significant stenosis. No aneurysm. Left vertebral artery: Unremarkable. No occlusion or significant stenosis. No aneurysm. Basilar artery: Unremarkable. No occlusion or significant stenosis. No aneurysm. 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 No evidence of hemorrhage. IMPRESSION: 1. No acute findings. 2. No stenosis or occlusion. 3. 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 No evidence of complication. Dictated and Authenticated by: Maria Isabel Myers MD. Ordering:EMMA Mendenhall MD
[2020-01-30 12:52] LABS: Troponin I < 0.05 ng/Ml (<0.06)
[2020-01-30] MEDS: Meclizine 25 MG TAB PO (13:18)
[2020-01-30] MEDS: Metoclopramide 10 MG/2 ML VIAL IVP (13:43)
--- NOTE | 2020-01-30 13:47 | NUR.NOTE ---
Nursing Note: PT report transferred to Rubia (RN) at this time. At the time of transfer the PT is alert and oriented, vitals stable.
--- NOTE | 2020-01-30 14:37 | W.ED.GENAD ---
Discharge Plan Disposition Patient Disposition: HOME Condition: Improving Discharge Details Chief Complaint: Nausea/Vomit/Diar Clinical Impression: Nausea & vomiting, Weakness Primary Care Provider: Ryne Harris ED Provider: Abdirashid Angel Home Meds and New Rx's Prescriptions: Continued amlodipine 5 mg Tablet 5 mg PO DAILY RF: 0 lisinopril 10 mg Tablet 10 mg PO DAILY RF: 0 aspirin 81 mg Tablet,Chewable 81 mg PO DAILY RF: 0 Discharge Instructions Instructions: Acute Nausea and Vomiting (ED), Weakness (ED) Additional Instructions: Zofran as directed. Clear liquid diet, advance as tolerated. Please watch for new or worsening symptoms and return to the ER for any concerns. I would like you to reach out to your primary care provider tomorrow for prompt outpatient reevaluation. Medical Decision Making 44-year-old gentleman with a history of cerebral aneurysm coiling, hypertension, anxiety, presents with nausea, vomiting, diarrhea that began at 730 this morning associate generalized weakness, feeling off balanced. He did have similar sick contacts earlier in the week. He presents diaphoretic, anxious, hyperventilating. He does have occasional dry heaving. Given his history and presentation, will obtain IV access, give IV fluid, Zofran, 2 mg IV Ativan, obtain cardiac work-up as well as a CT head without contrast and CTA head for further evaluation of his previous surgery. Patient and family are comfortable with this plan. Patient upon reevaluation is now resting comfortably, sleeping. No active vomiting. He did have one episode of vomiting over in CT, a second dose of Zofran given. Upon reevaluation patient is resting comfortably, no active vomiting. He is actually tolerating p.o. ice. Initial work-up in the ER is unremarkable. Mild nonspecific leukocytosis of 13.34. He is afebrile. No obvious source of infection. No evidence of meningeal signs. Very well may be secondary to vomiting or potential gastroenteritis. Potassium of 3.3, dioxide 19.5, anion gap of 19.5, certainly consistent with hyperventilation. EKG does not reveal any evidence of hypokalemia. Glucose 190, magnesium 1. patient is agreeable to awaiting a second troponin and EKG given his risk for chest pain and rapid cardiac rule out. Patient is now with his eyes open's, reports that he feels improvement however symptoms have not resolved completely. Will attempt 10 IV Reglan and 25 p.o. Antivert and reevaluate. Patient is no longer diaphoretic, no longer hyperventilating. No evidence of anxiety whatsoever. Patient did vomit lumbar time but then vomiting did resolve and he was able to tolerate p.o. ice chips. Denies any pain whatsoever Repeat EKG performed at 1239 reveals sinus rhythm, ventricular rate of 74. No acute ST elevation or depression. No dynamic changes when compared to initial EKG. Patient upon reevaluation is resting comfortably, able to again tolerate oral ice chips. He was able to ambulate slowly but steadily around the exam room. Discussed options in length with patient and family. Discussed observing here in the ER longer, continuing therapy here such as antiemetics, fluids, etc. versus being discharged home. They feel as though they can safely get him home, will provide Zofran take-home pack. We discussed the importance of clear liquid diet, advancing as tolerated, and the importance of avoiding dehydration. We discussed that he still may have breakthrough nausea and vomiting even with the Zofran prescription. We discussed returning to the ER for new or evolving symptoms, otherwise contacting his primary care provider tomorrow for prompt outpatient reevaluation. Upon discharge patient is able to ambulate slowly but steadily, is comfortable with discharge, and is neurologically intact. Medical Records Medical records reviewed: Yes I reviewed the patient's medical records. Imaging Data Radiologic Study: Attestation: I personally reviewed and interpreted this imaging study as follows: Imaging: X-Ray My impression: Chest x-ray read by me as negative Radiologic Study #2: Imaging: CT Scan My impression: Head CT without contrast, CTA of brain read by virtual radiology as unremarkable, no occlusive or significant stenosis, no aneurysm. 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 No acute intracranial hemorrhage. Lab Data Lab results reviewed: Yes I reviewed the patient's lab results. Lab results narrative: Laboratory Tests Range/Units 01/30/20 01/30/20 01/30/20 09:35 09:35 09:35 WBC (4.4-10.8) k/cumm 13.34 H RBC (4.50-6.00) m/cumm 5.23 Hgb (13.5-17.5) g/dL 17.2 Hct (40.0-50.0) % 47.9 MCV (80-95) fL 91.6 MCH (27.0-33.0) pg 32.9 MCHC (32.0-36.0) g/dL 35.9 RDW (11.8-14.1) % 12.4 Plt Count (130-400) x1000/uL 392 MPV (8.0-11.0) fL 9.2 Immature Gran % % 0.2 Neutrophils % 59.5 Lymphocytes % 30.9 Monocytes % 8.2 Eosinophils % 0.8 Basophils % 0.4 Absolute Neutrophils (1.2-6.7) k/cumm 7.94 H Absolute Lymphocytes (1.2-3.4) k/cumm 4.12 H Absolute Monocytes (0.11-0.7) k/cumm 1.09 H Absolute Eosinophils (0.0-0.7) k/cumm 0.11 Absolute Basophils (0.0-0.2) k/cumm 0.05 PT (9.3-11.0) sec 10.5 INR (0.9-1.1) 1.0 APTT (21.0-31.4) sec 21.0 Sodium (136-145) mmol/L 141 Potassium (3.5-5.1) mmol/L 3.3 L Chloride (98-107) mmol/L 102 Carbon Dioxide (21.0-32.0) mmol/L 19.5 L Anion Gap (3-11) mmol/L 19.5 H BUN (7-18) mg/dL 17 Creatinine (0.70-1.30) mg/dL 1.23 Estimated GFR/1.73 m2 (mL/min/1.73m2) >= 60.00 Glucose (74-106) mg/dL 190 H Calcium (8.5-10.1) mg/dL 9.5 Magnesium (1.8-2.4) mg/dL 1.7 L Total Bilirubin (0.2-1.0) mg/dL 1.4 H AST (15-37) U/L 30 ALT (16-63) U/L 60 Alkaline Phosphatase (46-116) U/L 77 Troponin I (<0.06) ng/Ml < 0.05 NT-Pro-B Natriuret Pep (<300) pg/mL < 5 Total Protein (6.4-8.2) g/dL 8.0 Albumin (3.4-5.0) g/dL 4.5 Range/Units 01/30/20 12:30 WBC (4.4-10.8) k/cumm RBC (4.50-6.00) m/cumm Hgb (13.5-17.5) g/dL Hct (40.0-50.0) % MCV (80-95) fL MCH (27.0-33.0) pg MCHC (32.0-36.0) g/dL RDW (11.8-14.1) % Plt Count (130-400) x1000/uL MPV (8.0-11.0) fL Immature Gran % % Neutrophils % Lymphocytes % Monocytes % Eosinophils % Basophils % Absolute Neutrophils (1.2-6.7) k/cumm Absolute Lymphocytes (1.2-3.4) k/cumm Absolute Monocytes (0.11-0.7) k/cumm Absolute Eosinophils (0.0-0.7) k/cumm Absolute Basophils (0.0-0.2) k/cumm PT (9.3-11.0) sec INR (0.9-1.1) APTT (21.0-31.4) sec Sodium (136-145) mmol/L Potassium (3.5-5.1) mmol/L Chloride (98-107) mmol/L Carbon Dioxide (21.0-32.0) mmol/L Anion Gap (3-11) mmol/L BUN (7-18) mg/dL Creatinine (0.70-1.30) mg/dL Estimated GFR/1.73 m2 (mL/min/1.73m2) Glucose (74-106) mg/dL Calcium (8.5-10.1) mg/dL Magnesium (1.8-2.4) mg/dL Total Bilirubin (0.2-1.0) mg/dL AST (15-37) U/L ALT (16-63) U/L Alkaline Phosphatase (46-116) U/L Troponin I (<0.06) ng/Ml < 0.05 NT-Pro-B Natriuret Pep (<300) pg/mL Total Protein (6.4-8.2) g/dL Albumin (3.4-5.0) g/dL ECG Data Attestation: I personally reviewed and interpreted this ECG (s) as follows: Interpretation: EKG performed at 935. Reveals sinus rhythm, ventricular rate of 77. No acute ST elevation or depression. HPI General Mode of arrival: ambulatory. Date/Time Provider Initiated Documentation: 01/30/20 09:20. Limitations to Documentation: no limitations. Information obtained by: patient. HPI Narrative: 44-year-old gentleman who reports nausea, vomiting, diarrhea that began around 730 this morning. He reports that his son had similar symptoms earlier in the week. He reports that after vomiting he developed right-sided chest pain worse with vomiting or movement. There is no left-sided chest pain, the pain does not radiate anywhere. Patient reports a mild headache globally after the vomiting began. Denies visual changes. Patient reports generalized weakness, denies focal weakness. He reports that he feels dizzy. When asked more about this he denies feeling like the room is spinning, reports that it is more like a general weakness, off-balance feeling. He denies any abdominal pain, fever, nausea,, numbness, tingling, weakness. Patient has a history of hypertension. Last year he was diagnosed with a cerebral aneurysm and had a coiled. Reports the surgery went well. Family reports that since the surgery, he has had increased anxiety. Reports that when he feels ill or pain, he gets very vigilant about his symptoms. He admits that he does feel severe anxiety at the moment. Related Data Home Medications Medication Instructions Recorded Confirmed amlodipine 5 mg PO DAILY 01/30/20 01/30/20 aspirin 81 mg PO DAILY 01/30/20 01/30/20 lisinopril 10 mg PO DAILY 01/30/20 01/30/20 General Stated Complaint: Nausea/Vomit/Diar MOISE: 3 Review of Systems Constitutional Constitutional: Denies chills, Denies fatigue, Denies fever(s), Denies headache(s) and Reports weakness Eyes Eyes: Denies change in vision ENT Ears, Nose, Mouth, and Throat: Denies headache(s) and Denies sore throat Cardiovascular Cardiovascular: Reports chest pain, Denies edema, Denies irregular heart rhythm and Denies dyspnea Respiratory Respiratory: Denies cough and Denies dyspnea Gastrointestinal Gastrointestinal: Denies abdominal pain, Reports diarrhea, Reports nausea and Reports vomiting Musculoskeletal Musculoskeletal: Denies myalgias, Denies numbness and Denies tingling Integumentary/Breasts Skin/Breast: Reports rash (Apparently had a rash yesterday but completely resolved now) Neurologic Neurologic: Denies headache(s), Denies numbness, Denies tingling and Reports weakness Psychiatric Psychiatric: Reports anxiety Endocrine Endocrine: Denies fatigue [facility] Social History Smoking/Tobacco Use Status: Former Tobacco Use Alcohol Intake: never Drug use: Socially Substance use type: marijuana Do you feel safe in your relationship?: Yes Exam Const General: cooperative, healthy appearing, in distress mild, anxious and diaphoretic Orientation: alert and awake HENMT Head: normal to inspection, normocephalic and atraumatic General nose exam: external nose normal Face and sinus: normal facial exam Mouth: oral mucosae normal and moist mucous membranes Throat: posterior oropharynx normal Eyes Periorbital: periorbital findings normal Eyelids: eyelids normal Conjunctivae: conjunctivae normal Sclera: sclerae normal Pupils: PERRL EOM: EOM intact bilaterally Direct ophthalmoscopy: normal light reflex Neck Neck: normal visual inspection, full ROM, no lymphadenopathy, no meningeal signs, trachea midline and supple Chest Chest: normal inspection of the chest and normal palpation of entire chest wall Resp Effort & Inspection: normal respiratory effort, able to speak in complete sentences and other (Hyperventilating) Auscultation: clear to auscultation bilaterally Cardio Rate: regular rate Rhythm: regular rhythm GI Inspection: normal to inspection Palpation: soft, not firm, no guarding, not rigid and nontender Auscultation: normal bowel sounds Back/Spine/Pelvis Back: No back tenderness Skin General skin exam: no rashes or lesions noted Neuro General: alert, awake, oriented x3, moves all extremities and no focal motor deficits Cranial Nerves: CN's II-XI intact bilaterally Cognition: normal cognition Speech: speech normal Motor: muscle tone normal throughout, no pronator drift, no movement abnormalities noted and no fasciculations Sensory Exam: no sensory deficits noted Coordination: [id number] test normal and rapid alternating movement UE normal Extrem General: normal to inspection, full ROM and normal capillary refill Psych Appearance: grossly normal Mental Status: mental status grossly normal Mood: anxious mood Course Vital Signs Vital signs: Vital Signs Temperature 36.1 C L 01/30/20 09:26 Pulse 85 01/30/20 09:26 Respiratory Rate 22 01/30/20 09:26 Blood Pressure 153/82 H 01/30/20 09:26 Pulse Oximetry 98 01/30/20 09:26 Temperature 36.1 C L 01/30/20 09:26 Temperature Source Temporal Artery Scan 01/30/20 09:26 Pulse 78 01/30/20 13:31 Pulse 83 01/30/20 13:40 Respiratory Rate 19 01/30/20 13:40 Respiratory Effort 01/30/20 09:35 Blood Pressure 134/80 01/30/20 13:31 Blood Pressure Mean 91 01/30/20 13:31 Blood Pressure Position Supine 01/30/20 09:26 Pulse Oximetry 100 01/30/20 13:40 Oxygen Delivery Method Room Air 01/30/20 09:26 Oxygen Flow Rate 0 01/30/20 09:26 Pain Level 0 01/30/20 13:43 Lab/Test Results Lab/Test Results: Laboratory Tests Range/Units 01/30/20 01/30/20 01/30/20 09:35 09:35 09:35 WBC (4.4-10.8) k/cumm 13.34 H RBC (4.50-6.00) m/cumm 5.23 Hgb (13.5-17.5) g/dL 17.2 Hct (40.0-50.0) % 47.9 MCV (80-95) fL 91.6 MCH (27.0-33.0) pg 32.9 MCHC (32.0-36.0) g/dL 35.9 RDW (11.8-14.1) % 12.4 Plt Count (130-400) x1000/uL 392 MPV (8.0-11.0) fL 9.2 Immature Gran % % 0.2 Neutrophils % 59.5 Lymphocytes % 30.9 Monocytes % 8.2 Eosinophils % 0.8 Basophils % 0.4 Absolute Neutrophils (1.2-6.7) k/cumm 7.94 H Absolute Lymphocytes (1.2-3.4) k/cumm 4.12 H Absolute Monocytes (0.11-0.7) k/cumm 1.09 H Absolute Eosinophils (0.0-0.7) k/cumm 0.11 Absolute Basophils (0.0-0.2) k/cumm 0.05 PT (9.3-11.0) sec 10.5 INR (0.9-1.1) 1.0 APTT (21.0-31.4) sec 21.0 Sodium (136-145) mmol/L 141 Potassium (3.5-5.1) mmol/L 3.3 L Chloride (98-107) mmol/L 102 Carbon Dioxide (21.0-32.0) mmol/L 19.5 L Anion Gap (3-11) mmol/L 19.5 H BUN (7-18) mg/dL 17 Creatinine (0.70-1.30) mg/dL 1.23 Estimated GFR/1.73 m2 (mL/min/1.73m2) >= 60.00 Glucose (74-106) mg/dL 190 H Calcium (8.5-10.1) mg/dL 9.5 Magnesium (1.8-2.4) mg/dL 1.7 L Total Bilirubin (0.2-1.0) mg/dL 1.4 H AST (15-37) U/L 30 ALT (16-63) U/L 60 Alkaline Phosphatase (46-116) U/L 77 Troponin I (<0.06) ng/Ml < 0.05 NT-Pro-B Natriuret Pep (<300) pg/mL < 5 Total Protein (6.4-8.2) g/dL 8.0 Albumin (3.4-5.0) g/dL 4.5 Range/Units 01/30/20 12:30 WBC (4.4-10.8) k/cumm RBC (4.50-6.00) m/cumm Hgb (13.5-17.5) g/dL Hct (40.0-50.0) % MCV (80-95) fL MCH (27.0-33.0) pg MCHC (32.0-36.0) g/dL RDW (11.8-14.1) % Plt Count (130-400) x1000/uL MPV (8.0-11.0) fL Immature Gran % % Neutrophils % Lymphocytes % Monocytes % Eosinophils % Basophils % Absolute Neutrophils (1.2-6.7) k/cumm Absolute Lymphocytes (1.2-3.4) k/cumm Absolute Monocytes (0.11-0.7) k/cumm Absolute Eosinophils (0.0-0.7) k/cumm Absolute Basophils (0.0-0.2) k/cumm PT (9.3-11.0) sec INR (0.9-1.1) APTT (21.0-31.4) sec Sodium (136-145) mmol/L Potassium (3.5-5.1) mmol/L Chloride (98-107) mmol/L Carbon Dioxide (21.0-32.0) mmol/L Anion Gap (3-11) mmol/L BUN (7-18) mg/dL Creatinine (0.70-1.30) mg/dL Estimated GFR/1.73 m2 (mL/min/1.73m2) Glucose (74-106) mg/dL Calcium (8.5-10.1) mg/dL Magnesium (1.8-2.4) mg/dL Total Bilirubin (0.2-1.0) mg/dL AST (15-37) U/L ALT (16-63) U/L Alkaline Phosphatase (46-116) U/L Troponin I (<0.06) ng/Ml < 0.05 NT-Pro-B Natriuret Pep (<300) pg/mL Total Protein (6.4-8.2) g/dL Albumin (3.4-5.0) g/dL
[2020-01-30] MEDS: Ondansetron O.D.T. 4 MG TABEF, 3 TABS/BTL PO (14:45)
== END 2020-01-30 15:05 | disposition home or self-care (01) ==
PROVIDERS: Emergency Provider Physician Assistant; PCP Internal Medicine
DX: R11.2 Nausea with vomiting, unspecified (principal); R53.1 Weakness; I10 Essential (primary) hypertension
CPT/HCPCS: 36415; 70496; 80053; 96361; 96374; 96375; 96376; 99285; 70450; 71045; 83735; 83880; 84484; 85025; 85610; 85730; 99284; J2060; J2405; J2765; J3490

== ENCOUNTER 2021-01-04 23:29 | Outpatient (REF) | payer OTHER, SELFPAY ==
[2021-01-05 15:29] LABS: COVID-19 RT-PCR UVMMC Result Negative (Negative)
== END 2021-01-04 23:30 | disposition home or self-care (01) ==
LOC: NCHCN 23:29
PROVIDERS: PCP Internal Medicine; Visit Provider Internal Medicine
DX: Z20.828 Contact with and (suspected) exposure to other viral communicable diseases (principal)
CPT/HCPCS: U0003

== ENCOUNTER 2021-03-02 10:19 | Outpatient (REF) | payer OTHER, SELFPAY ==
[2021-03-02 13:55] LABS: Anion Gap 7.2 mmol/L (3-11); BUN 13 mg/dL (7-18); CO2 26.8 mmol/L (21.0-32.0); CREATININE 0.8 mg/dL (0.70-1.30); Calcium 8.7 mg/dL (8.5-10.1); Calculated LDL 126 mg/dL (<100); Chloride 106 mmol/L (98-107); Cholesterol 185 mg/dL (<200); Glucose 114 mg/dL (74-106); HDL Cholesterol 33 mg/dL (40-60); Sodium 140 mmol/L (136-145); Triglyceride 133 mg/dL (<150)
[2021-03-02 14:45] LABS: Hemoglobin A1C 5.9 % (<5.7)
== END 2021-03-02 10:20 | disposition home or self-care (01) ==
LOC: NCHCN 10:19
PROVIDERS: PCP Internal Medicine; Visit Provider Internal Medicine
DX: I10 Essential (primary) hypertension (principal); R73.03 Prediabetes; Z13.220 Encounter for screening for lipoid disorders
CPT/HCPCS: 80048; 80061; 83036

== ENCOUNTER 2021-06-01 09:09 | Outpatient (REF) | payer OTHER, SELFPAY ==
[2021-06-01 14:26] LABS: Anion Gap 11.5 mmol/L (3-11); BUN 20 mg/dL (7-18); CO2 27.5 mmol/L (21.0-32.0); Calcium 8.8 mg/dL (8.5-10.1); Chloride 103 mmol/L (98-107); Glucose 120 mg/dL (74-106); Potassium 4.4 mmol/L (3.5-5.1); Sodium 142 mmol/L (136-145)
== END 2021-06-01 09:10 | disposition home or self-care (01) ==
LOC: NCHCN 09:09
PROVIDERS: PCP Internal Medicine; Visit Provider Family Medicine
DX: Z13.220 Encounter for screening for lipoid disorders (principal)
CPT/HCPCS: 80048

== ENCOUNTER → 2021-07-11 02:16 | Outpatient (CLI) | payer OTHER, SELFPAY ==
--- NOTE | 2021-07-11 | DI.MAMMO_ITS ---
Exam(s) US BREAST LT COMPLETE MAMMO DIAGNOSTIC BI EXAM: MAMMO DIAGNOSTIC BI CLINICAL HISTORY: DIAGNOSTIC, MALE GYNECOMASTIA,N62. COMPARISON: No exams were available for comparison [id number] TECHNIQUE: Craniocaudal and mediolateral oblique Full Field Digital Mammography views of both breast s with Computer Aided Diagnosis followed by Tomosynthesis and left breast ultrasound. FINDINGS: Mammography/Tomosynthesis: Masses/Architectural Distortion: None seen. Microcalcifications: No suspicious pleomorphic-type are seen. Skin Thickening/Nipple Retraction: None. The left breast shows enlargement with formation normal appearing glandular tissue. Right breast laurita ws fatty density. Left breast US: Echotexture: Normal appearance of the glandular tissue, consistent with gynecomastia.. Shadowing: No suspicious foci. Cyst: None. Solid lesions: None seen. Ductal dilation: None. IMPRESSION: 1. No evidence of malignancy is noted. Asymmetric left gynecomastia. BI-RADS Category 2 - Benign Findings Breast Density - Category C - Heterogeneously dense A negative radiographic report should not delay biopsy if a dominant or clinically suspicious mass is present. Up to ten percent of cancers are not identified on mammography. A negative report may reinforce clinical impression. Adenosis and dense breasts may obscure an underlying neoplasm. False positive reports average 6 to 10%. Patient will receive a letter notifying them of these results.
== END ==
PROVIDERS: PCP Internal Medicine; Visit Provider Internal Medicine
DX: R92.8 Other abnormal and inconclusive findings on diagnostic imaging of breast
CPT/HCPCS: 76642; 77062; 77066; G0279

== ENCOUNTER 2021-08-10 20:27 | Emergency (ER) | payer OTHER, SELFPAY ==
[2021-08-10 20:31] VITALS: BP 170/84; PULSE 117; RESP 18; TEMP 36.7; O2SAT 95
--- NOTE | 2021-08-10 21:11 | W.ED.GENAD ---
Discharge Plan Disposition Patient Disposition: HOME Condition: Stable Discharge Details Clinical Impression: Abscess of groin, right Primary Care Provider: Ryne Harris ED Provider: Neel Martinez Home Meds and New Rx's Prescriptions: New doxycycline hyclate 100 mg tablet 100 mg PO BID Qty: 13 RF: 0 Continued amlodipine 10 mg tablet 10 mg PO DAILY RF: 0 hydroxyzine HCl 25 mg tablet 25 mg PO QHS RF: 0 aspirin 81 mg Tablet,Chewable 81 mg PO DAILY RF: 0 Discharge Instructions Instructions: Abscess (ED) Additional Instructions: Please get vaccinated for Covid as soon as possible. You can arrange an appointment at your local pharmacy. Please take full course of antibiotic as prescribed. Please contact your primary care physician to arrange follow-up. Return to the ER for any worsening or new concerning symptoms. Referrals: Ryne Harris MD [Primary Care Provider] - Medical Decision Making 45-year-old male here with right groin abscess x1 week, not draining. Afebrile. Skin was anesthetized with LMX and local injection of lidocaine. Incision and drainage performed, please see note. Culture of abscess drainage sent.Will initiate treatment with doxycycline. I encouraged the patient to have COVID-19 vaccination as soon as possible. HPI General Mode of arrival: ambulatory. Date/Time Provider Initiated Documentation: 08/10/21 20:48. Limitations to Documentation: no limitations. Information obtained by: patient. HPI Narrative: 45-year-old male presents with chief complaint of boil. Patient notes painful right groin abscess developing over the past 1 week. Progressively worse. No modifiers. He notes that he has had abscesses in the past that typically drain and that this has not yet drained. He notes pain is now severe. No associated fever. Related Data Home Medications Medication Instructions Recorded Confirmed aspirin 81 mg PO DAILY 01/30/20 08/10/21 amlodipine 10 mg tablet 10 mg PO DAILY 06/21/21 08/10/21 hydroxyzine HCl 25 mg tablet 25 mg PO QHS 06/21/21 08/10/21 doxycycline hyclate 100 mg PO BID #13 tab 08/10/21 Previous Rx's Medication Instructions Recorded doxycycline hyclate 100 mg PO BID #13 tab 08/10/21 Allergies Allergy/AdvReac Type Severity Reaction Status Date / Time lisinopril Allergy Severe rash Verified 08/10/21 20:38 tramadol Allergy Severe Unverified 08/10/21 20:38 ketorolac [From Toradol] Allergy Intermediate he Verified 08/10/21 20:38 stopped breathing General Stated Complaint: RashLesion MOISE: 4 Review of Systems Constitutional Constitutional: Denies fever(s) Gastrointestinal Gastrointestinal: Denies abdominal pain Genitourinary Genitourinary: Denies genital lesions, Denies genital pain, Denies dysuria, Denies scrotal swelling and Denies testicular pain Integumentary/Breasts Skin/Breast: Reports as per HPI [facility] Medical History Back pain Gynecomastia, male Headache Heel pain History of prediabetes Hypertension Intracranial aneurysm Obesity (BMI 35.0-39.9 without comorbidity) Skin rash Tobacco use Social History Smoking/Tobacco Use Status: Current every day Tobacco Type: cigarettes Smoking risk assessment performed?: Yes Alcohol Intake: never Drug use: Socially Substance use type: marijuana Do you feel safe at home: Yes Do you feel safe in your relationship?: Yes Exam Const General: cooperative and no acute distress Resp Auscultation: clear to auscultation bilaterally, no rales, no rhonchi and no wheezes Cardio Rate: regular rate and not tachycardic Rhythm: regular rhythm GI Palpation: soft, not firm, no guarding, no masses, not rigid and nontender Skin Other: Right groin abscess 3 cm with fluctuance and surrounding erythema Neuro General: patient alert, patient awake, patient oriented x3 and tone normal Extrem General: no edema Course Vital Signs Vital signs: Vital Signs Temperature 36.7 C 08/10/21 20:31 Pulse 117 H 08/10/21 20:31 Respiratory Rate 18 08/10/21 20:31 Blood Pressure 170/84 H 08/10/21 20:31 Pulse Oximetry 95 08/10/21 20:31 Temperature 36.7 C 08/10/21 20:31 Temperature Source Temporal Artery Scan 08/10/21 20:31 Pulse 117 H 08/10/21 20:31 Respiratory Rate 18 08/10/21 20:31 Respiratory Effort Non-Labored 08/10/21 20:39 Blood Pressure 170/84 H 08/10/21 20:31 Blood Pressure Position Standing 08/10/21 20:31 Pulse Oximetry 95 08/10/21 20:31 Oxygen Delivery Method Room Air 08/10/21 20:31 Oxygen Flow Rate 0 08/10/21 20:31 Pain Level 10 08/10/21 20:31 Lab/Test Results Lab/Test Results: 08/10/21 21:05 Groin - Right Skin Culture - Pending Procedures Abscess I/D Site: Other (groin) Side (if applicable): Right Local Anesthetic: Lidocaine 1% Amount of anesthesia used (mL): 3 Technique: Incised with #11 Blade Amount of fluid expressed (mL): 20 Irrigation: Yes Packing used?: Plain Complications: Pain
[2021-08-10] MEDS: Lidocaine 4% Cream 5 GM TUBE TP (21:12)
[2021-08-10] MEDS: Lidocaine 1% Multi-Dose 50 ML VIAL IJ (21:13)
[2021-08-10] MEDS: Doxycycline Hyclate 100 MG CAP PO (22:23)
[2021-08-10 22:27] VITALS: BP 178/90; PULSE 98; RESP 18; TEMP 36.5; O2SAT 97
--- NOTE | 2021-08-10 22:28 | NUR.NOTE ---
Nursing Note: 08/10/21 at 2225 ABD drsg applied to wound right lower abdomen post I&D of abscess.
== END 2021-08-10 22:29 | disposition home or self-care (01) ==
PROVIDERS: Emergency Provider Student in an Organized Health Care Education/Training Program; PCP Internal Medicine
DX: L02.214 Cutaneous abscess of groin (principal)
CPT/HCPCS: 10061; 87070

== ENCOUNTER 2021-11-04 10:28 | Emergency (ER) | payer OTHER, SELFPAY ==
[2021-11-04 10:41] VITALS: BP 182/102; PULSE 77; TEMP 36.6; O2SAT 98
--- NOTE | 2021-11-04 10:58 | ED.GENADUL_ITS ---
Discharge Plan Disposition Patient Disposition: HOME Condition: Improving Discharge Details Clinical Impression: Acute bronchitis Primary Care Provider: Ryne Harris ED Provider: Hanna Eng Home Meds and New Rx's Prescriptions: New prednisone 20 mg tablet See Rx Instructions .ROUTE .COMPLEX Qty: 18 RF: 0 benzonatate 100 mg capsule 100 mg PO TID PRN (Reason: cough) Qty: 10 RF: 0 doxycycline hyclate 100 mg tablet 100 mg PO BID 7 Days Qty: 14 RF: 0 albuterol sulfate 90 mcg/actuation aerosol powdr breath activated 2 inh IH Q6H PRN (Reason: shortness of breath or wheezing) Qty: 1 RF: 0 Continued amlodipine 10 mg tablet 10 mg PO DAILY RF: 0 hydroxyzine HCl 25 mg tablet 25 mg PO QHS PRNRF: 0 aspirin 81 mg Tablet,Chewable 81 mg PO DAILY RF: 0 n-sedtndv-R2-L-gou-lmdxn-echin Capsule 1 cap PO DAILY RF: 0 Discharge Instructions Instructions: Acute Bronchitis (ED) Additional Instructions: Drink plenty of fluids and get plenty of rest. Prescriptions for steroids, cough medication, an inhaler and an antibiotic have been sent electronically to your pharmacy. Take the steroids as directed until finished. Take the cough medication and use the inhaler as needed and directed for coughing or wheezing. If you have no relief or worsening of symptoms in the next 2 days, you can start the antibiotics. Please quarantine until your Covid test is available and the result is negative. Follow-up with your primary care doctor in 1 week. Return to the emergency department with any worsening or new concerning symptoms. Stand Alone Forms: PENDING COVID-19 TESTING Discharge Data Discharge Date/Time-TO BE ENTERED AT DEPARTURE: 11/04/21 12:43 Discharge Physician: Hanna Eng Medical Decision Making 46-year-old male with a history of daily tobacco smoking, hypertension, brain aneurysm clipping and coiling x 2 presents for persistent cough and occasional wheezing for the past 2 weeks. Blood pressure hypertensive. Oxygen saturation within normal limits on room air. He has expiratory wheezing noted otherwise no signs of respiratory distress. Differential diagnosis includes bronchitis, coronavirus, pneumonia. Will obtain an chest x-ray, Covid swab, PO prednisone, tessalon perles, and duoneb. Chest x-ray reviewed and negative. As patient symptoms have been present for 2 weeks, and he is a smoker, will also send a prescription for antibiotics. Prescriptions for an inhaler, steroids, cough medication in addition to antibiotics sent electronically to his pharmacy. Advised to quarantine until his Covid result available and negative. Advised to follow up with the primary care doctor for re-evaluation. Usual and customary return precautions given prior to discharge. Medical Records Medical records reviewed: Yes I reviewed the patient's medical records. Imaging Data Radiologic Study: Radiologist's impression: XR Chest Exam date and time: 11/04/2021 11:21 AM Age: 46 years old Clinical indication: Other: Cough, shortness of breath, R/O acute disease TECHNIQUE: Imaging protocol: XR of the chest. Views: 1 view. COMPARISON: XR CHEST 1V IN DI DEPT 01/30/2020 11:04 AM FINDINGS: Lungs: Unremarkable. No consolidation. Pleural spaces: Unremarkable. No pleural effusion. No pneumothorax. Heart/Mediastinum: Unremarkable. No cardiomegaly. Bones/joints: Unremarkable. IMPRESSION: No acute findings. HPI General Mode of arrival: ambulatory . Date/Time Provider Initiated Documentation: 11/04/21 10:31 . Limitations to Documentation: no limitations . Information obtained by: patient . HPI Narrative: Patient is a 46-year-old male who is a daily tobacco smoker presents with persistent cough and occasional wheezing for the past 2 weeks. Patient states the cough is mainly worse at night and when he lays down he has a tickle which causes him to cough up mainly clear phlegm but states it is mostly dry. He admits to occasional shortness of breath with coughing and wheezing but states the main complaint is the cough. He states his symptoms started mainly as a tickle in the throat and then developed into a cough. He denies any known exposure to Covid and is not vaccinated for Covid. He denies any loss of sense of smell or taste. He denies fever, sore throat, chest pain, vomiting or diarrhea. He states he has had a normal appetite. Related Data Home Medications Medication Instructions Recorded Confirmed aspirin 81 mg PO DAILY 01/30/20 11/04/21 amlodipine 10 mg tablet 10 mg PO DAILY 06/21/21 11/04/21 hydroxyzine HCl 25 mg tablet 25 mg PO QHS PRN 06/21/21 11/04/21 [id number]-echin 1 cap PO DAILY 11/04/21 11/04/21 albuterol sulfate 2 inh IH Q6H PRN #1 each 11/04/21 benzonatate 100 mg PO TID PRN #10 cap 11/04/21 doxycycline hyclate 100 mg PO BID 7 Days #14 tab 11/04/21 prednisone See Rx Instructions .ROUTE 11/04/21 .COMPLEX #18 tab Previous Rx's Medication Instructions Recorded albuterol sulfate 2 inh IH Q6H PRN #1 each 11/04/21 benzonatate 100 mg PO TID PRN #10 cap 11/04/21 doxycycline hyclate 100 mg PO BID 7 Days #14 tab 11/04/21 prednisone See Rx Instructions .ROUTE 11/04/21 .COMPLEX #18 tab Allergies Allergy/AdvReac Type Severity Reaction Status Date / Time lisinopril Allergy Severe rash Verified 11/04/21 10:46 tramadol Allergy Severe Unverified 11/04/21 10:46 ketorolac [From Toradol] Allergy Intermediate he Verified 11/04/21 10:46 stopped breathing General Stated Complaint: RespSymp MOISE: 4 Review of Systems All systems reviewed & are unremarkable except as noted in HPI and below Constitutional Constitutional: Reports as per HPI, Denies chills and Denies fever(s) Eyes Eyes: Denies blurry vision ENT Ears, Nose, Mouth, and Throat: Reports change in voice, Denies dizziness, Denies sore throat and Denies throat swelling Cardiovascular Cardiovascular: Denies chest pain and Denies dyspnea Respiratory Respiratory: Reports cough and Denies dyspnea Gastrointestinal Gastrointestinal: Denies abdominal pain, Denies diarrhea and Denies vomiting Genitourinary Genitourinary: Denies hematuria and Denies dysuria Musculoskeletal Musculoskeletal: Denies back pain and Denies numbness Integumentary/Breasts Skin/Breast: Denies lesions and Denies rash Neurologic Neurologic: Denies dizziness, Denies localized weakness and Denies numbness Allergic/Immunologic Allergic/Immunologic: Denies throat swelling [facility] Active Problem List (Updated 11/04/21 @ 12:24 by Hanna Eng DO) Acute bronchitis (Acute) Abscess of groin, right (Acute) Breast pain, right (Acute) Class 2 obesity without serious comorbidity with body mass index (BMI) of 37.0 to 37.9 in adult (Acute) Smoker unmotivated to quit (Acute) History of prediabetes (Acute) Gynecomastia, male (Acute) Marijuana smoker, continuous (Acute) Ankle sprain (Acute) Cellulitis of leg, right (Acute) Abrasion of leg, right, infected (Acute) Medical History (Updated 11/04/21 @ 12:24 by Hanna Eng DO) Anxiety Hypertension Intracranial aneurysm Migraine Obesity (BMI 35.0-39.9 without comorbidity) Surgical History (Updated 11/04/21 @ 11:33 by Hanna Eng DO) Brain aneurysm Coiling and clipping x 2 H/O right wrist surgery History of appendectomy History of thyroid surgery Tympanic membrane rupture with repair Social History Smoking/Tobacco Use Status: Current every day Tobacco Type: cigarettes Smoking risk assessment performed?: Yes Alcohol Intake: current Alcohol Intake frequency: a few times a month Alcohol type: beer and hard liquor Drug use: Socially Substance use type: marijuana Do you feel safe at home: Yes Do you feel safe in your relationship?: Yes Exam Const General: cooperative, healthy appearing and no acute distress HENMT Head: normal to inspection Ears: hearing grossly normal bilaterally, external ears normal and TM's normal bilaterally General nose exam: external nose normal Face and sinus: normal facial exam Mouth: oral mucosae normal Throat: posterior oropharynx normal Eyes General: appearance normal, both eyes and all related structures EOM: EOM intact bilaterally Neck Neck: normal visual inspection and No submandibular swelling Lymphatic: no lymphadenopathy noted Chest Chest: normal inspection of the chest and no tenderness Resp Effort & Inspection: normal respiratory effort and able to speak in complete sentences Auscultation: wheezes expiratory wheezes Cardio Rate: regular rate Rhythm: regular rhythm GI Inspection: normal to inspection Palpation: soft, not firm, not rigid and nontender Auscultation: hypoactive bowel sounds Skin General skin exam: no rashes or lesions noted Neuro General: patient alert, patient awake and patient oriented x3 Cognition: normal cognition Speech: speech normal Motor: muscle tone normal throughout Sensory Exam: no sensory deficits noted Extrem General: normal to inspection, full ROM, capillary refill normal, no calf tenderness bilaterally and no edema Psych Appearance: grossly normal Mental Status: mental status grossly normal Speech and Movement: speech and movement normal Affect: normal affect Course Vital Signs Vital signs: Vital Signs Temperature 97.9 F 11/04/21 10:41 Pulse 77 11/04/21 10:41 Blood Pressure 182/102 H 11/04/21 10:41 Pulse Oximetry 98 11/04/21 10:41 Temperature 97.9 F 11/04/21 10:41 Temperature Source Temporal Artery Scan 11/04/21 10:41 Pulse 77 11/04/21 10:41 Respiratory Effort Non-Labored 11/04/21 10:43 Blood Pressure 182/102 H 11/04/21 10:41 Blood Pressure Position Sitting 11/04/21 10:41 Pulse Oximetry 98 11/04/21 10:41 Oxygen Delivery Method Room Air 11/04/21 10:41 Oxygen Flow Rate 0 11/04/21 10:41 Pain Level 0 11/04/21 10:41 PAWSS Have you Been Recently Intoxicated or Drunk Within the Last 30 days?: No Have you Ever Experienced Previous Episodes of Alcohol Withdrawal?: No Have you ever Experienced Withdrawal Seizures?: No Have you ever Experienced Delirium Tremens(DT)s?: No Have you ever undergone Alcohol Rehabilitation Treatment (i.e, inpt ot outpatient treatment programs)?: No Have you ever Experienced Blackouts?: No Have you ever Combined Alcohol with other Downers within the last 90 days?: No Have you ever Combined Alcohol with any other Substance of Abuse during the last 90 days?: No Positive Blood Alcohol level on Presentation? [PCS.BAL]: No Evidence of Increased Autonomic Activity (i.e. HR>120, tremor, sweating, agitation, nausea)?: No Result: 0
--- NOTE | 2021-11-04 11:15 | DI.RAD_ITS ---
Exam(s) XR PORTABLE CHEST AP EXAM: XR PORTABLE CHEST AP CLINICAL HISTORY: cough,shortness of breath, r/o acute disease. TECHNIQUE: 2D digital imaging was performed. COMPARISON: CR,XR XR CHEST 1V IN DI DEPT from 01/30/2020 FINDINGS: Heart size is upper normal. The mediastinum is not widened. Lungs are clear. No infiltrates nor obvious pleural effusions. IMPRESSION: No acute pulmonary findings on this single AP portable view of the chest. DATA REPOSITORY: RADIATION DOSE DELIVERED: All CT scans at this facility use at least one of these dose optimization techniques: automated exposure control; mA and/or kV adjustment per patient size (includes targeted e xams where dose is matched to clinical indication); or iterative reconstruction.
[2021-11-04] MEDS: Benzonatate 100 MG CAP 200 MG PO (11:45)
[2021-11-04] MEDS: predniSONE 20 MG TAB 60 MG PO (11:45)
[2021-11-04 11:46] VITALS: RESP 1
[2021-11-04] MEDS: Albuterol/Ipratropium 3 ML UPD VIAL UPD (11:46)
--- NOTE | 2021-11-04 12:03 | DI.VRAD_ITS ---
PROCEDURE INFORMATION: Exam: XR Chest Exam date and time: 11/04/2021 11:21 AM Age: 46 years old Clinical indication: Other: Cough, shortness of breath, R/O acute disease TECHNIQUE: Imaging protocol: XR of the chest. Views: 1 view. COMPARISON: XR CHEST 1V IN DI DEPT 01/30/2020 11:04 AM FINDINGS: Lungs: Unremarkable. No consolidation. Pleural spaces: Unremarkable. No pleural effusion. No pneumothorax. Heart/Mediastinum: Unremarkable. No cardiomegaly. Bones/joints: Unremarkable. IMPRESSION: No acute findings. Dictated and Authenticated by: Montana Bolanos MD. Ordering:SHELLY Ferreira MD
[2021-11-04 12:21] VITALS: BP 133/70; PULSE 72; RESP 16; TEMP 36.7; O2SAT 96
[2021-11-05 20:35] LABS: COVID-19 RT-PCR UVMMC Result Negative (Negative)
--- NOTE | 2021-11-06 16:02 | NUR.NOTE ---
negative civid result relayed to pt via phone,.Nursing Note:
== END 2021-11-04 12:43 | disposition home or self-care (01) ==
PROVIDERS: Emergency Provider Physician Assistant; PCP Internal Medicine
DX: J20.9 Acute bronchitis, unspecified (principal); R06.02 Shortness of breath; F17.210 Nicotine dependence, cigarettes, uncomplicated; Z20.822 Contact with and (suspected) exposure to COVID-19
CPT/HCPCS: 87635; 94640; 99283; U0003; 71045; J7512; J7620

== ENCOUNTER 2021-12-23 12:51 | Emergency (ER) | payer OTHER, SELFPAY ==
[2021-12-23 12:57] VITALS: BP 157/97; PULSE 100; RESP 20; TEMP 36.5; O2SAT 99
--- NOTE | 2021-12-23 13:00 | RT.EKG_ITS ---
APPROVED REPORT Exam: Resting ECG Reason for Exam: SOB Patient Location: E HR:90 bpm ECG Measurements Heart Rate 90 AXIS MD 156 P 9 QRSd 77 QRS 56 QT 326 T 2 QTc 399 Conclusion Sinus rhythm...normal P axis, V-rate 60- 99
--- NOTE | 2021-12-23 13:00 | DI.CT_ITS ---
Exam(s) CT CHEST PE CTA EXAM: CT CHEST PE CTA CLINICAL HISTORY: persistent cough, SOB. TECHNIQUE: Imaging Protocol: Axial CT angiography was performed with multi-slice acquisition and mu lti-planar and/or 3D reconstructions. CONTRAST MATERIAL: Intravenous: Omnipaque 350 Contrast volume:100 mL COMPARISON: CT CT thorax abdomen CTA from 11/25/[address] BRAIN CTA from 01/30/2020 FINDINGS: Tracheobronchial tree: Patent where visualized. There is a question of mild bronchial wall thickenin g. Pulmonary parenchyma: There is a calcified granuloma in the right upper lobe. No noncalcified pulmon suraj nodules. There are no focal consolidating infiltrates present. There is scarring in the left li ngula and right middle lobe. Pulmonary Arteries: No evidence of filling defect to suggest pulmonary emboli. Mediastinum and Gbai: No dominant adenopathy or fluid collection. The esophagus is unremarkable. Sm all hiatal hernia. Visualized thyroid gland: There is a 16 mm hypodense nodule in the left lobe of the thyroid gland. N onemergent thyroid ultrasound for follow-up is recommended. The patient appears to be status post ri ght thyroidectomy. Pleura: There is a small right pleural effusion with subjacent atelectasis. No left pleural effusion or pneumothorax. Heart: The heart is not dilated. No coronary artery calcifications are seen. No pericardial effusion. Aorta: Thoracic aorta non-dilated. No evidence of dissection. Upper abdomen: There is diffuse fatty infiltration of the liver. Soft tissues: Mild bilateral gynecomastia. Bones: Within normal limits for the patient's age. IMPRESSION: 1. No evidence of pulmonary embolism, thoracic aortic dissection or aneurysm. 2. 0.6 cm left thyroid nodule. Nonemergent thyroid ultrasound is recommended. 3. No focal consolidating infiltrates are seen. 4. Question of mild bronchial wall thickening. An inflammatory infectious process cannot be excluded . Please correlate clinically. RADIATION DOSE DELIVERED: 678.6mGy.cm Total DLP DATA REPOSITORY: All CT scans at this facility are submitted to the National Radiology Data Registry (NRDR) Dose Index Registry (DIR) with the [employer] ([employer]). RADIATION OPTIMIZATION: All CT scans at this facility use at least one of these dose optimization te chniques: automated exposure control; mA and/or kV adjustment per patient size (includes targeted exa ms where dose is matched to clinical indication); or iterative reconstruction.
--- NOTE | 2021-12-23 13:14 | W.ED.GENAD ---
Discharge Plan Disposition Patient Disposition: HOME Condition: Improving Discharge Details Clinical Impression: Acute bronchitis Primary Care Provider: Ryne Harris ED Provider: Nixon Woodard Home Meds and New Rx's Prescriptions: New prednisone 50 mg tablet 50 mg PO DAILY 5 Days Qty: 5 RF: 0 sulfamethoxazole-trimethoprim [Bactrim] 400-80 mg tablet 1 tab PO BID 10 Days Qty: 20 RF: 0 guaifenesin [Mucinex] 600 mg tablet extended release 12hr 600 mg PO Q12H PRNQty: 10 RF: 0 Continued amlodipine 10 mg tablet 10 mg PO DAILY RF: 0 hydroxyzine HCl 25 mg tablet 25 mg PO QHS PRNRF: 0 aspirin 81 mg Tablet,Chewable 81 mg PO DAILY RF: 0 acetaminophen [Acetaminophen Extra Strength] 500 mg Tablet 1,000 mg PO PRN PRNRF: 0 n-olvhkvj-[id number]-O-kjx-ueshc-echin Capsule 1 cap PO DAILY RF: 0 albuterol sulfate 90 mcg/actuation aerosol powdr breath activated 2 inh IH Q6H PRN (Reason: shortness of breath or wheezing) Qty: 1 RF: 0 Discharge Instructions Instructions: Acute Bronchitis (ED) Additional Instructions: We will call you with the results of your COVID-19 test Your work-up today included laboratories, EKG, and CT scan of the chest. Take antibiotics and prednisone as prescribed. Return to the emergency room for any acute concerns. Stand Alone Forms: PENDING COVID-19 TESTING Medical Decision Making 46-year-old male presents from home complaining of weeks of persistent cough, congestion, production of sputum, shortness of breath. Seems worse at night. Patient had completed a course of cyclin and prednisone previously. He arrives to the ER with a resting pulse 90-100, afebrile, oxygenating 100% on room air. Differential diagnosis includes bronchitis, pneumonitis, pneumonia, exclude PE or cardiac process. Patient IV access established, was placed on a shuttle preparation supervisor, referred for laboratory testing and CT images. Patient's troponin and BNP are negative. White blood cell count is 14. CBC and chemistries otherwise reassuring. COVID-[address] images: Diffuse bronchial wall thickening and layered secretions. No PE. See formal report. Consistent with acute bronchitis. We will treat him with a course of oral antibiotic and a burst of oral prednisone. He is stable and appropriate for outpatient management. HPI General Mode of arrival: ambulatory. Date/Time Provider Initiated Documentation: 12/23/21 12:52. Limitations to Documentation: no limitations. Information obtained by: patient. History of Present Illness 46 year old M presents to the emergency department with the chief complaint of 3 weeks of cough, left-sided discomfort, production of sputum, shortness of, Quality is described as dull and constant, and is localized to the chest and left. Patient reports no radiation. Patient started experiencing this day(s) and it has been constant. No exacerbating factors reported . Patient notes cough and shortness of breath. Patient did receive the following treatments prior to arrival, none Related Data Home Medications Medication Instructions Recorded Confirmed aspirin 81 mg PO DAILY 01/30/20 12/23/21 amlodipine 10 mg tablet 10 mg PO DAILY 06/21/21 12/23/21 hydroxyzine HCl 25 mg tablet 25 mg PO QHS PRN 06/21/21 12/23/21 d-vwabzxo-A6-Y-zzy-xadkj-echin 1 cap PO DAILY 11/04/21 11/04/21 albuterol sulfate 2 inh IH Q6H PRN #1 each 11/04/21 12/23/21 acetaminophen [Acetaminophen Extra 1,000 mg PO PRN PRN 12/23/21 12/23/21 Strength] guaifenesin [Mucinex] 600 mg PO Q12H PRN #10 tab 12/23/21 prednisone 50 mg PO DAILY 5 Days #5 tab 12/23/21 sulfamethoxazole-trimethoprim 1 tab PO BID 10 Days #20 tab 12/23/21 [Bactrim] Previous Rx's Medication Instructions Recorded albuterol sulfate 2 inh IH Q6H PRN #1 each 11/04/21 guaifenesin [Mucinex] 600 mg PO Q12H PRN #10 tab 12/23/21 prednisone 50 mg PO DAILY 5 Days #5 tab 12/23/21 sulfamethoxazole-trimethoprim 1 tab PO BID 10 Days #20 tab 12/23/21 [Bactrim] Allergies Allergy/AdvReac Type Severity Reaction Status Date / Time lisinopril Allergy Severe rash Verified 12/23/21 13:04 tramadol Allergy Severe Unverified 12/23/21 13:04 ketorolac [From Toradol] Allergy Intermediate he Verified 12/23/21 13:04 stopped breathing General Stated Complaint: RespSymp MOISE: 3 Review of Systems Narrative: Finish steroids and doxycycline. No known sick contacts. Immunized x1 against COVID-19. 8 systems reviewed and otherwise negative. PFSH All Active Problems (Updated 12/23/21 @ 15:23 by Nixon Woodard MD) Acute bronchitis (Acute) Abscess of groin, right (Acute) Breast pain, right (Acute) Class 2 obesity without serious comorbidity with body mass index (BMI) of 37.0 to 37.9 in adult (Acute) Smoker unmotivated to quit (Acute) History of prediabetes (Acute) Gynecomastia, male (Acute) Marijuana smoker, continuous (Acute) Ankle sprain (Acute) Cellulitis of leg, right (Acute) Abrasion of leg, right, infected (Acute) Medical History Anxiety Hypertension Intracranial aneurysm Migraine Obesity (BMI 35.0-39.9 without comorbidity) Surgical History (Updated 11/04/21 @ 11:33 by Hanna Eng DO) Brain aneurysm Coiling and clipping x 2 H/O right wrist surgery History of appendectomy History of thyroid surgery Tympanic membrane rupture with repair Social History Smoking/Tobacco Use Status: Current every day Tobacco Type: cigarettes Smoking risk assessment performed?: Yes Alcohol Intake: current Alcohol Intake frequency: a few times a month Alcohol type: beer and hard liquor Drug use: Socially Substance use type: marijuana Do you feel safe at home: Yes Do you feel safe in your relationship?: Yes Exam Narrative Exam Narrative: GEN: awake, alert, oriented 3. Pleasant, well groomed, interactive. HEAD: Normocephalic, atraumatic ENT: Mucous membranes moist, oropharynx unremarkable, External ear exam unremarkable EYES: PERRL, EOMI NECK: Full ROM, no SAMANTHA, no menigismus CHEST/RESP: Nontender, bilateral end expiratory wheezing CARDIOVASCULAR: RRR, no murmur, rub sudarshan. 2+ Rad pulse bilateral ABDOMEN: Soft, nontender, no mass. +Bowel sounds EXT: Full ROM, no edema, no rash Neuro: Grossly normal neurologic exam, conversant, interactive. Psych: Speech fluent, thoughts congruent, affect normal Course Vital Signs Vital signs: Vital Signs Temperature 36.5 C 12/23/21 12:57 Pulse 100 H 12/23/21 12:57 Respiratory Rate 20 12/23/21 12:57 Blood Pressure 157/97 H 12/23/21 12:57 Pulse Oximetry 99 12/23/21 12:57 Temperature 36.5 C 12/23/21 12:57 Temperature Source Temporal Artery Scan 12/23/21 12:57 Pulse 100 H 12/23/21 12:57 Respiratory Rate 20 12/23/21 12:57 Respiratory Effort 12/23/21 13:09 Blood Pressure 157/97 H 12/23/21 12:57 Blood Pressure Position Sitting 12/23/21 12:57 Pulse Oximetry 99 12/23/21 12:57 Oxygen Delivery Method Room Air 12/23/21 12:57 Oxygen Flow Rate 0 12/23/21 12:57 Pain Level 4 12/23/21 12:57 Comment 12/23/21 12:57 PAWSS Have you Been Recently Intoxicated or Drunk Within the Last 30 days?: No Have you Ever Experienced Previous Episodes of Alcohol Withdrawal?: No Have you ever Experienced Withdrawal Seizures?: No Have you ever Experienced Delirium Tremens(DT)s?: No Have you ever undergone Alcohol Rehabilitation Treatment (i.e, inpt ot outpatient treatment programs)?: No Have you ever Experienced Blackouts?: No Have you ever Combined Alcohol with other Downers within the last 90 days?: No Have you ever Combined Alcohol with any other Substance of Abuse during the last 90 days?: No Positive Blood Alcohol level on Presentation? [PCS.BAL]: No Evidence of Increased Autonomic Activity (i.e. HR>120, tremor, sweating, agitation, nausea)?: No Result: 0
[2021-12-23 14:01] LABS: Abs Immature Grans 0.07 10^3/uL (0.0-0.06); Absolute Basophil Count 0.06 10^3/uL (0.0-0.2); Absolute Eosinophil Count 0.15 10^3/uL (0.0-0.7); Absolute Lymphocyte Count 2.74 10^3/uL (1.2-3.4); Absolute Monocyte Count 0.84 10^3/uL (0.1-0.8); Absolute Neutrophil Count 10.81 10^3/uL (1.2-6.7); Basophils % 0.4; HCT 47.5 % (40.0-50.0); HGB 16.3 g/dL (13.5-17.5); Immature Grans % 0.5; Lymphocytes % 18.7; MCH 32.2 pg (27.0-33.0); MCHC 34.3 % (32.0-36.0); MCV 93.9 fL (80-95); MPV 9.2 fL (8.0-11.0); Monocytes % 5.7; Neutrophils % 73.7; Nucleated RBC 0 %; Platelet Count 310 10^3/uL (130-400); RBC 5.06 10^6/uL (4.36-5.78); RDW 11.8 % (11.8-14.1); RDW-SD 40.7 fL; WBC 14.67 10^3/uL (4.4-10.8)
[2021-12-23 14:13] LABS: ALT 48 U/L (16-63); AST 25 U/L (15-37); Albumin 4.1 g/dL (3.4-5.0); Alkaline Phosphatase 143 U/L (46-116); Anion Gap 9.3 mmol/L (3-11); BUN 14 mg/dL (7-18); Bilirubin, Total 0.5 mg/dL (0.2-1.0); CO2 26.7 mmol/L (21.0-32.0); CREATININE 0.8 mg/dL (0.70-1.30); Calcium 9.3 mg/dL (8.5-10.1); Chloride 104 mmol/L (98-107); Glucose 107 mg/dL (74-106); Sodium 140 mmol/L (136-145); Total Protein 8.1 g/dL (6.4-8.2)
[2021-12-23 14:22] LABS: NT-proBNP 8 pg/mL (<300); Troponin I < 50 ng/L (<or=60)
[2021-12-23] MEDS: Albuterol/Ipratropium 3 ML UPD VIAL UPD (14:37)
[2021-12-23] MEDS: Normal Saline 1,000 ML 1000 ML IV (14:37)
[2021-12-23] MEDS: Omnipaque 350 MG/ML 100 ML BTL IV (14:46)
[2021-12-23] MEDS: Normal Saline Flush 10 ML SYR IVP (14:47)
--- NOTE | 2021-12-23 15:15 | DI.VRAD_ITS ---
PROCEDURE INFORMATION: Exam: CTA Chest With Contrast Exam date and time: 12/23/2021 1:14 PM Age: 46 years old Clinical indication: Other: Persistent cough, SOB TECHNIQUE: Imaging protocol: Computed tomographic angiography of the chest with contrast. 3D rendering (Not supervised by radiologist): MIP and/or 3D reconstructed images were created by the technologist. Radiation optimization: All CT scans at this facility use at least one of these dose optimization techniques: automated exposure control; mA and/or kV adjustment per patient size (includes targeted exams where dose is matched to clinical indication); or iterative reconstruction. Contrast material: OMNIPAQUE 350; Contrast volume: 100 ml; Contrast route: INTRAVENOUS (IV); COMPARISON: CT thorax abdomen CTA 11/25/2018 8:04 PM FINDINGS: Pulmonary arteries: Contrast fills the pulmonary artery and its branch vessels satisfactorily. No intraluminal filling defect to suggest pulmonary embolism. Aorta: Unremarkable. No aortic aneurysm. No aortic dissection. Thyroid: Postoperative changes of right hemithyroidectomy with a 1.9 cm left thyroid lobe nodule. Lungs: Diffuse bronchial wall thickening and layering secretions in the bilateral mainstem bronchi. Faint bilateral upper lobe reticulonodular findings. Small focus of posterior right lower lobe atelectasis and adjacent trace effusion. Lateral right upper lobe and posterior left lower lobe calcified granulomas. No significant pulmonary nodularity or mass. Pleural spaces: Unremarkable. No pneumothorax. No pleural effusion. Heart: Unremarkable. No cardiomegaly. No pericardial effusion. Lymph nodes: Unremarkable. No enlarged lymph nodes. Diaphragm: Small hiatal hernia. Liver: Moderate generalized hepatic steatosis. Bones/joints: Unremarkable. No acute fracture. Soft tissues: Mild bilateral gynecomastia. IMPRESSION: 1. Diffuse bronchial wall thickening and layering secretions in the bilateral mainstem bronchi. Correlate with aspirations or acute bronchitis. Associated tiny bilateral upper lobe predominant reticulonodular opacities. Findings suggest an atypical bronchopneumonia. 2. No pulmonary embolism. 3. Moderate generalized hepatic steatosis. 4. Postoperative changes of right hemithyroidectomy and a 1.9 cm left thyroid lobe nodule. Correlate with ultrasound. Dictated and Authenticated by: Lindsey Cisneros MD. Ordering:JOE Alicea MD
[2021-12-23] MEDS: methylPREDNISolone SUCC 125 MG VIAL IVP (15:29)
[2021-12-23] MEDS: Sulfameth/Trimeth DS TAB 1 TAB PO (15:29)
[2021-12-23 15:34] VITALS: BP 150/98; PULSE 96; RESP 17; TEMP 36.8; O2SAT 97
[2021-12-25 10:48] LABS: COVID-19 RT-PCR UVMMC Result Negative (Negative)
--- NOTE | 2021-12-25 17:34 | NUR.NOTE ---
patient notified of negative covid test results.
== END 2021-12-23 15:39 | disposition home or self-care (01) ==
PROVIDERS: Emergency Provider Emergency Medicine; PCP Internal Medicine
DX: J20.9 Acute bronchitis, unspecified (principal); R06.02 Shortness of breath; R05.1 Acute cough; Z86.16 Personal history of COVID-19; Z20.822 Contact with and (suspected) exposure to COVID-19; Z28.3 Underimmunization status; F17.210 Nicotine dependence, cigarettes, uncomplicated
CPT/HCPCS: 71275; 80053; 93005; 96361; 96374; 99284; 99285; U0003; 83880; 84443; 84484; 85025; 93010; J2930; J3490; J7620

== ENCOUNTER 2022-05-24 16:34 | Outpatient (REF) | payer OTHER, SELFPAY ==
[2022-05-24 13:34] LABS: FREE T4 1.12 ng/dL (0.76-1.46); TSH 0.74 uIU/mL (0.36-3.74)
== END 2022-05-24 16:35 | disposition home or self-care (01) ==
LOC: NCHCN 16:34
PROVIDERS: PCP Internal Medicine; Visit Provider Internal Medicine
DX: E89.0 Postprocedural hypothyroidism (principal)
CPT/HCPCS: 84439; 84443

== ENCOUNTER 2022-06-26 23:44 | Emergency (ER) | payer OTHER, SELFPAY ==
[2022-06-26 23:50] VITALS: BP 162/101; PULSE 92; RESP 18; TEMP 36.4; O2SAT 96
--- NOTE | 2022-06-27 | DI.RAD_ITS ---
Exam(s) XR CHEST 2V PA LATERAL EXAM: XR CHEST 2V PA LATERAL CLINICAL HISTORY: cough, r/o infiltrate TECHNIQUE: 2D digital imaging was performed of the chest. Two images were obtained. PA and lateral views were obtained. COMPARISON: CR,XR XR PORTABLE CHEST AP from 11/04/2021 FINDINGS: There are low lung volumes. MEDIASTINUM: Normal. HEART: Heart size is upper limits normal to mildly enlarged. PULMONARY VASCULATURE: Normal. LUNGS: Clear. PLEURAL SPACE: No pleural effusion or pneumothorax. BONE:Within normal limits for the patient's age. OTHER FINDINGS:Normal. IMPRESSION: No acute pulmonary findings. DATA REPOSITORY: RADIATION DOSE DELIVERED:
--- NOTE | 2022-06-27 | DI.CT_ITS ---
Exam(s) CT BRAIN NECK CTA EXAM: CT BRAIN NECK CTA CLINICAL HISTORY: hx of coiled aneurysm, now cough w/ severe headach. TECHNIQUE: Imaging Protocol: Axial CT angiography was performed with multi-slice acquisition and mu lti-planar and/or 3D reconstructions. CONTRAST MATERIAL: Intravenous: Omnipaque 350 contrast volume:85 mL COMPARISON: CT CT BRAIN CTA from 01/30/[address] HEAD WO from 01/30/[address] CHEST PE CTA from 12/23/2021 FINDINGS: CT Head W/O and W: Ventricles and Extra axial spaces: Normal in size and morphology for the patient's age. Hemorrhage: None. Cerebral parenchyma: No acute territorial infarct is present. There again seen aneurysm coils in the supraclinoid region. There is a stent again seen in the distal right vertebral artery. Midline shift: None. Brainstem/Cerebellum: Normal. Calvarium: Normal. Visualized Paranasal sinuses/Mastoids: There is mild mucosal thickening in the maxillary sinuses bila terally. The remaining visualized paranasal sinuses and mastoid air cells are clear. Soft Tissues: Unremarkable. Enhancement: Unremarkable. CTA Neck W: Common Carotid: Right: No dissection, occlusion or significant stenosis. Left: No dissection, occlusion or significant stenosis. External Carotid: Right: No occlusion or significant stenosis. Left: No occlusion or significant stenosis. Internal Carotid: Right: No dissection, occlusion or significant stenosis. Left: No dissection, occlusion or significant stenosis. Vertebral Artery: Right: No dissection, occlusion or significant stenosis. There is again seen a stent in the distal r ight vertebral artery. Left: No dissection, occlusion or significant stenosis. Lung Apices: Normal. Bones: Within normal limits for the patient's age. Soft Tissues: Normal. Thyroid gland: The right lobe of the thyroid gland appears absent. There is a 7 mm nodule in the left lobe. No follow-up is recommended. CTA Brain W: Internal Carotid Arteries: Normal. Anterior Cerebral Arteries: Right: No aneurysm, occlusion or significant stenosis. 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 There are again seen stents or coils in the proximal right anterior cer ebral artery and the M1 segment of the left MCA. Left: No aneurysm, occlusion or significant stenosis. Middle Cerebral Arteries: Right: No aneurysm, occlusion or significant stenosis. Left: No aneurysm, occlusion or significant stenosis. Posterior Cerebral Arteries: Right: No aneurysm, occlusion or significant stenosis. Left: No aneurysm, occlusion or significant stenosis. Vertebral Arteries: Right: No aneurysm, occlusion or significant stenosis. There is again seen a stent in the distal rig ht vertebral artery. Left: No aneurysm, occlusion or significant stenosis. Basilar Artery: No aneurysm, occlusion or significant stenosis. IMPRESSION: 1. No large vessel occlusion or significant stenosis on the CT angiography of the head. 2. No acute intracranial process. 3. No occlusion or significant stenosis on the CT angiography of the neck. 4. Stable vascular coiling and stents as described above. RADIATION DOSE DELIVERED: 2,687.65mGy.cm Total DLP DATA REPOSITORY: All CT scans at this facility are submitted to the National Radiology Data Registry (NRDR) Dose Index Registry (DIR) with the [employer] ([employer]). RADIATION OPTIMIZATION: All CT scans at this facility use at least one of these dose optimization te chniques: automated exposure control; mA and/or kV adjustment per patient size (includes targeted exa ms where dose is matched to clinical indication); or iterative reconstruction.
[2022-06-27] MEDS: ACETAMINOPHEN 1,000 MG/100 ML BTL 400 MG IVPB (00:45)
[2022-06-27] MEDS: Normal Saline 1,000 ML 1000 ML IV (00:46)
[2022-06-27] MEDS: Prochlorperazine 10 MG/2 ML VIAL IVP (00:46)
[2022-06-27] MEDS: methylPREDNISolone SUCC 125 MG VIAL IVP (00:46)
[2022-06-27] MEDS: MORPHine 4 MG/ML SYR IVP (00:46)
[2022-06-27] MEDS: diphenhydrAMINE 50 MG/ML VIAL 25 MG IVP (00:46)
[2022-06-27] MEDS: Benzonatate 100 MG CAP PO (00:47)
[2022-06-27 00:53] LABS: Abs Immature Grans 0.04 10^3/uL (0.0-0.06); Absolute Basophil Count 0.07 10^3/uL (0.0-0.2); Absolute Eosinophil Count 0.16 10^3/uL (0.0-0.7); Absolute Lymphocyte Count 3.63 10^3/uL (1.2-3.4); Absolute Monocyte Count 1.18 10^3/uL (0.1-0.8); Basophils % 0.5; Eosinophils % 1.2; HCT 41.8 % (40.0-50.0); HGB 14.9 g/dL (13.5-17.5); Immature Grans % 0.3; Lymphocytes % 27.4; MCH 32.7 pg (27.0-33.0); MCHC 35.6 % (32.0-36.0); MCV 92 fL (80-95); MPV 9.5 fL (8.0-11.0); Monocytes % 8.9; Neutrophils % 61.7; Platelet Count 298 10^3/uL (130-400); RBC 4.55 10^6/uL (4.36-5.78); RDW 11.9 % (11.8-14.1); RDW-SD 40.2 fL; WBC 13.25 10^3/uL (4.4-10.8)
--- NOTE | 2022-06-27 01:08 | ED.GENADUL_ITS ---
Discharge Plan Disposition Patient Disposition: HOME Condition: Good Discharge Details Clinical Impression: Headache, Post-nasal drip Primary Care Provider: Ryne Harris ED Provider: Tee Church Home Meds and New Rx's Prescriptions: New promethazine-codeine 6.25-10 mg/5 mL syrup 5 ml PO Q6H Qty: 118 0RF benzonatate 100 mg capsule 100 mg PO TID Qty: 30 0RF loratadine 10 mg tablet 10 mg PO DAILY Qty: 30 0RF No Action amlodipine 10 mg tablet 10 mg PO DAILY hydroxyzine HCl 25 mg tablet 25 mg PO QHS PRN aspirin 81 mg Tablet,Chewable 81 mg PO DAILY acetaminophen [Acetaminophen Extra Strength] 500 mg Tablet 1,000 mg PO PRN PRN guaifenesin [Mucinex] 600 mg tablet extended release 12hr 600 mg PO Q12H PRNQty: 10 0RF a-[id number]-khlnu-echin Capsule 1 cap PO DAILY albuterol sulfate 90 mcg/actuation aerosol powdr breath activated 2 inh IH Q6H PRN (Reason: shortness of breath or wheezing) Qty: 1 0RF levothyroxine 50 mcg tablet 1 tab PO DAILY Label Comments: TAKE ONE TABLET BY MOUTH EVERY DAY Discharge Instructions Instructions: General Headache (ED) Additional Instructions: At this time your symptoms have resolved. Your headache clinically does not appear consistent with a bleed. However as we discussed there are additional diagnostic options of lumbar puncture. Through a shared decision-making process you have decided to hold off on that for the time being. If your headache recurs, or your symptoms change, do not hesitate to return immediately to have a return to the discussion of a lumbar puncture. Please take the cough syrup as directed for your cough. Please take the loratadine and Tessalon Perles as directed. They have been sent to your pharmacy on file. If you notice any worsening of your symptoms, or any new symptoms such as vomiting, diarrhea, fever, chills, shortness of breath, chest pain, numbness, weakness, or fainting , please return immediately to the emergency department for reevaluation. Please follow up with your primary care provider as soon as possible for reassessment and reevaluation. As always, it was a pleasure participating in your medical care today. Referrals: Ryne Harris MD [Primary Care Provider] - Medical Decision Making This is a 46-year-old male with a past medical history of previous brain aneurysm that received coiling about 3 to 4 years ago, hypertension, tobacco use, who presents today for evaluation of headache. Patient states that about 4 days ago on Friday he developed a mild cough/tickle in the back of his throat. It was nonproductive. As he coughed over the next 4 days he developed a mild headache that worsened and worsened with time. Every time he coughs the headache would intensify. Gradually increased climaxing today where he states that the headache is severe. He states it goes from the front right synagogue to the back left neck. He denies any vision changes. He denies any trauma. His headache is made worse with light and loud noise. It is also made worse obviously with coughing. He states that it feels like it is pounding, which she is concerned because it similar to what it felt like when he had his aneurysm. Of note his aneurysm did not rupture in the past. He has been taking Tylenol occasionally but this is not improved his symptoms. No other complaints at this time. No fever, no chills. Exam demonstrates a well-appearing male, who is in no acute distress until he coughs and then he has a notable severe component to his headache. Neurologic assessment is normal. Negative Kernig's and Brudzinski sign. No nuchal rigidity or nuchal pain clinically. Symptoms are certainly concerning. Patient obviously did have his aneurysm in the past, with subsequent coil, his symptoms would be atypical for ruptured aneurysm as they were gradual and associated with cough. He denies any fever or chills, symptoms appear inconsistent with meningitis and pneumonia. I suspect the patient has a mild postnasal drip, leading to his mild persistent cough. He had this is potentially causing a migraine which is brought about his current symptoms. However obviously because of his history he is a potential high risk for repeat aneurysm, and also potential rupture although this seems less likely based on the current clinical scenario. We will treat with a migraine cocktail, we will gently rehydrate, we will give antitussives, will get a CT/CTA of the head neck, as well as a chest x-ray to rule out pneumonia. Will monitor closely and reassess. 1:56 AM Laboratory work-up has returned, notably unremarkable, minimal elevation in his white count but no bandemia. Electrolytes stable, renal function normal. The patient's chest x-ray is negative for pneumonia or acute process. Patient CTA has been read and per virtual radiology shows no evidence of new aneurysm, or worsening vascular abnormality. No evidence of bleed. Patient is certainly out of the 6-hour window of an aneurysmal rupture for CT detection, however clinically he does not seem to demonstrate evidence of rupture. On reassessment the patient is sleeping for the first time in quite some time. He feels well. We will continue to monitor and reassess for potential further discussion of need for LP versus deferment. 3 AM On reassessment the patient feels excellent, he states that the pain is essentially gone and his pain is currently only 1 out of 10. He feels much better and would like to go home. I had a long and in-depth conversation with the patient, his significant other, and his mother. We discussed the timing of his headache, including the benefit and limitations of the CT scan. Also discussed what a lumbar puncture could offer, and what potentially not having a lumbar puncture could miss. and at this time through notable discussion, weighing the risks and benefits, and a shared decision making process the patient has refused a lumbar puncture at this time. Patient is of an appropriate age to make decisions. The patient is of sound mind, appears clinically sober, and has capacity to make decisions by my clinical exam. Respecting the patient's wishes we will hold off on the lumbar puncture. Clinically the patient symptoms appear inconsistent with the bleed at this time based on the history, CT imaging, and current assessment. With the patient's headache resolved, his repeat neurologic exam normal, no clinical evidence of meningitis, the patient will be discharged. We discussed red flags which to return, including a critical importance of return if his symptoms do persist and the potential continued need for lumbar puncture. Clinically at this time though the patient's symptoms appear most consistent with migraine headache, dehydration, postnasal drip. We will give promethazine with codeine to help with the cough at home, loratadine to help dry the sinuses, and Tessalon Perles to help limit cough. I have extensively reviewed the treatment plan and discharge instructions with the patient and their family. I have addressed all patient concerns at this time. The patient and family was made aware of what symptoms to monitor for that would warrant a return to the emergency department. Discussed the plan with the patient and family, they demonstrate verbal understanding and agreement with our assessment and plan at this time. The documentation in this chart was dictated using shipbeat dictation software. Please excuse any dictation errors. FINDINGS: ANTERIOR CIRCULATION: Right internal carotid artery: Intracranial segment is patent with no significant stenosis. No aneurysm. Right middle cerebral artery: No occlusion or significant stenosis. No aneurysm. Right anterior cerebral artery: A vascular stent is seen within the A1 segment with slight narrowing distal to the stent. No occlusion. This is stable from the prior study. No aneurysm. Anterior communicating artery: And aneurysmal coil is seen within the suprasellar region, for treatment of a prior anterior communicating artery aneurysm. Left internal carotid artery: Intracranial segment is patent with no significant stenosis. No aneurysm. Left middle cerebral artery: No occlusion or significant stenosis. No aneurysm. Left anterior cerebral artery: A vascular stent is seen within the M1 segment. No occlusion or significant stenosis. No aneurysm. POSTERIOR CIRCULATION: Right vertebral artery: Dominant. A stent is seen within the mid and distal V4 segment, which is unchanged from 01/30/2020 but new from 03/13/2019, where fusiform aneurysmal dilatation was present. Normal contrast opacification without occlusion or recurrent aneurysm. Left vertebral artery: Non-dominant. No occlusion or significant stenosis. No aneurysm. Basilar artery: No occlusion or significant stenosis. No aneurysm. Right posterior cerebral artery: No occlusion or significant stenosis. No aneurysm. Left posterior cerebral artery: No occlusion or significant stenosis. No aneurysm. Brain: No definite mass, mass effect, or midline shift. Cerebral ventricles: No ventriculomegaly. Bones/joints: Unremarkable. No acute fracture. Soft tissues: Unremarkable. IMPRESSION: 1. No large vessel stenosis or occlusion within the intracranial arteries. 2. 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 Stable and patent vascular stents are again seen within the A1 segment of the right JUAN CARLOS and M1 segment of the left MCA. 3. Stable patent vascular stent within the V4 segment of the right vertebral artery for treatment of a prior aneurysm FINDINGS: Right common carotid artery: No stenosis. No dissection or occlusion. Right internal carotid artery: No stenosis of the extracranial segment. No dissection or occlusion. Right external carotid artery: No occlusion or stenosis of the origin. Left common carotid artery: No stenosis. No dissection or occlusion. Left internal carotid artery: No stenosis of the extracranial segment. No dissection or occlusion. Left external carotid artery: No occlusion or stenosis of the origin. Right vertebral artery: Dominant. No stenosis. No dissection or occlusion. Left vertebral artery: Non-dominant. No stenosis. No dissection or occlusion. Aorta: The great vessels of the level aortic arch opacify normally with contrast without stenosis, occlusion or dissection. Soft tissues: Normal. No significant soft tissue swelling. Bones/joints: No acute fracture. Lungs: The imaged lung apices are well aerated. IMPRESSION: No stenosis, dissection or occlusion within the extracranial arteries. REFERENCES: NASCET CRITERIA. The degree of internal carotid artery stenosis is based on NASCET criteria. Normal is no stenosis. Mild is less than 50% stenosis. Moderate is 50-69% stenosis. Severe is 70% to 99% stenosis. Total occlusion is no detectable patent lumen. Thank you for allowing us to participate in the care of your patient. Dictated and Authenticated by: Gema Elisa MD 06/27/2022 1:51 AM Eastern Time ([place] & [place]) FINDINGS: Lungs: The lung volumes are low. No focal pulmonary infiltrate or pulmonary edema. Pleural spaces: No pleural effusion or pneumothorax. Heart/Mediastinum: The cardiac silhouette is mildly enlarged. Bones/joints: No acute osseous abnormality. IMPRESSION: No acute findings. Thank you for allowing us to participate in the care of your patient. Dictated and Authenticated by: Gema Elias MD 06/27/2022 1:32 AM Eastern Time ([place] & [place]) HPI General Date/Time Provider Initiated Documentation: 06/26/22 23:57 . HPI Narrative: This is a 46-year-old male with a past medical history of previous brain aneurysm that received coiling about 3 to 4 years ago, hypertension, tobacco use, who presents today for evaluation of headache. Patient states that about 4 days ago on Friday he developed a mild cough/tickle in the back of his throat. It was nonproductive. As he coughed over the next 4 days he developed a mild headache that worsened and worsened with time. Every time he coughs the headache would intensify. Gradually increased climaxing today where he states that the headache is severe. He states it goes from the front right synagogue to the back left neck. He denies any vision changes. He denies any trauma. His headache is made worse with light and loud noise. It is also made worse obviously with coughing. He states that it feels like it is pounding, which she is concerned because it similar to what it felt like when he had his aneurysm. Of note his aneurysm did not rupture in the past. He has been taking Tylenol occasionally but this is not improved his symptoms. No other complaints at this time. No fever, no chills. Related Data Home Medications Medication Instructions Recorded Confirmed aspirin 81 mg chewable tablet 81 mg PO DAILY 01/30/20 06/26/22 amlodipine 10 mg tablet 10 mg PO DAILY 06/21/21 06/26/22 hydroxyzine HCl 25 mg tablet 25 mg PO QHS PRN 06/21/21 06/26/22 r-vehvkxi-[id number]-I-[id number]-cszpf-echin 1 cap PO DAILY 11/04/21 06/26/22 capsule albuterol sulfate 90 mcg/actuation 2 inh inhalation Q6H PRN shortness 11/04/21 06/26/22 breath activated powder inhaler of breath or wheezing #1 ea acetaminophen 500 mg tablet 1,000 mg PO PRN PRN 12/23/21 06/26/22 (Acetaminophen Extra Strength) guaifenesin 600 mg tablet, 600 mg PO Q12H PRN #10 tabs 12/23/21 06/26/22 extended release 12 hr (Mucinex) levothyroxine 50 mcg tablet 1 tab PO DAILY 06/26/22 06/26/22 benzonatate 100 mg capsule 100 mg PO TID #30 caps 06/27/22 loratadine 10 mg tablet 10 mg PO DAILY #30 tabs 06/27/22 promethazine 6.25 mg-codeine 10 5 ml PO Q6H #118 mL 06/27/22 mg/5 mL syrup Previous Rx's Medication Instructions Recorded albuterol sulfate 90 mcg/actuation 2 inh inhalation Q6H PRN shortness 11/04/21 breath activated powder inhaler of breath or wheezing #1 ea guaifenesin 600 mg tablet, 600 mg PO Q12H PRN #10 tabs 12/23/21 extended release 12 hr (Mucinex) benzonatate 100 mg capsule 100 mg PO TID #30 caps 06/27/22 loratadine 10 mg tablet 10 mg PO DAILY #30 tabs 06/27/22 promethazine 6.25 mg-codeine 10 5 ml PO Q6H #118 mL 06/27/22 mg/5 mL syrup Allergies Allergy/AdvReac Type Severity Reaction Status Date / Time lisinopril Allergy Severe rash Verified 06/26/22 23:53 tramadol Allergy Severe Unverified 06/26/22 23:53 ketorolac [From Toradol] Allergy Intermediate he Verified 06/26/22 23:53 stopped breathing General Stated Complaint: Headache MOISE: 3 Review of Systems All systems reviewed & are unremarkable except as noted in HPI and below PFSH All Active Problems (Updated 06/27/22 @ 02:28 by Tee Church DO) Acute bronchitis (Acute) Headache (Acute) Post-nasal drip (Acute) Abscess of groin, right (Acute) Breast pain, right (Acute) Class 2 obesity without serious comorbidity with body mass index (BMI) of 37.0 to 37.9 in adult (Acute) Smoker unmotivated to quit (Acute) History of prediabetes (Acute) Gynecomastia, male (Acute) Marijuana smoker, continuous (Acute) Ankle sprain (Acute) Cellulitis of leg, right (Acute) Abrasion of leg, right, infected (Acute) Medical History Anxiety Hypertension Intracranial aneurysm Migraine Obesity (BMI 35.0-39.9 without comorbidity) Surgical History Brain aneurysm Coiling and clipping x 2 H/O right wrist surgery History of appendectomy History of thyroid surgery Tympanic membrane rupture with repair Social History Smoking/Tobacco Use Status: Current every day Tobacco Type: cigarettes Smoking risk assessment performed?: Yes Alcohol Intake: current Alcohol Intake frequency: a few times a month Alcohol type: beer and hard liquor Drug use: Current Sobriety Substance use type: does not use Do you feel safe at home: Yes Do you feel safe in your relationship?: Yes Exam Narrative Exam Narrative: 1.Const: Well-nourished, Well-developed, appearing stated age 2.Eyes: PERRL, no conjunctival injection, and symmetrical lids. 3.ENT: Atraumatic external nose and ears. Moist MM. Neck: Symmetric, trachea midline, No thyromegaly. Patient demonstrates good movement of cervical neck. There is no nuchal rigidity, no nuchal tenderness. Neck achiness is improved with gentle massage of the neck. Patient is able to flex the neck without any difficulty or significant pain. Negative Kernig's and Brudzinski sign. 4.CVS: +S1/S2, No murmurs or gallops. Peripheral pulses 2+ and equal in all extremities. Brisk capillary refill in all extremities. 5.RESP: Unlabored respiratory effort. Clear to auscultation bilaterally. No wheezes rales or rhonchi 6.GI: Soft, Nontender/Nondistended, No hepatosplenomegaly. No guarding or rebound. 7.MSK: Normocephalic/Atraumatic, Extremities w/o deformity or ttp No cyanosis or clubbing, Normal movement of all extremities 8.Skin: Warm, Dry. No rashes or lesions. 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 Sensation grossly intact, no focal neurologic deficits. All 6 cardinal planes of vision are fully intact. No evidence of rotatory or vertical nystagmus. The patient demonstrated a normal erroon-ymxv-ngjkjw, good dexterity. There was no evidence of dysdiadochokinesia. Patient was able to ambulate without difficulty. There was no wide-based gait. Romberg testing was normal. Ntie-no-funb testing was normal. Sensation was intact bilaterally as well as muscle strength bilaterally for all extremities. Patient was able to verbalize butter cup with no slurring, or miss pronunciation. 10.Psych: (AAO) x3. Appropriate mood and affect Course Vital Signs Vital signs: Vital Signs Temperature 36.4 C L 06/26/22 23:50 Pulse 92 H 06/26/22 23:50 Respiratory Rate 18 06/26/22 23:50 Blood Pressure 162/101 H 06/26/22 23:50 Pulse Oximetry 96 06/26/22 23:50 Temperature 36.4 C L 06/26/22 23:50 Temperature Source Skin 06/26/22 23:50 Pulse 92 H 06/26/22 23:50 Respiratory Rate 18 06/26/22 23:50 Respiratory Effort 06/26/22 23:54 Blood Pressure 162/101 H 06/26/22 23:50 Blood Pressure Position Sitting 06/26/22 23:50 Pulse Oximetry 96 06/26/22 23:50 Oxygen Delivery Method Room Air 06/26/22 23:50 Oxygen Flow Rate 0 06/26/22 23:50 Pain Level 10 06/27/22 00:46
[2022-06-27 01:12] LABS: ALT 48 U/L (16-63); AST 20 U/L (15-37); Albumin 3.7 g/dL (3.4-5.0); Alkaline Phosphatase 95 U/L (46-116); BUN 14 mg/dL (7-18); Bilirubin, Total 0.5 mg/dL (0.2-1.0); CREATININE 0.9 mg/dL (0.70-1.30); Calcium 8.8 mg/dL (8.5-10.1); Glucose 114 mg/dL (74-106); Total Protein 7.3 g/dL (6.4-8.2)
[2022-06-27 01:14] LABS: Absolute Neutrophil Count 8.18 10^3/uL (1.2-6.7)
[2022-06-27 01:21] LABS: Chloride 105 mmol/L (98-107); Potassium 3.7 mmol/L (3.5-5.1); Sodium 141 mmol/L (136-145)
[2022-06-27 01:31] VITALS: BP 151/87; PULSE 80; RESP 12; O2SAT 100
--- NOTE | 2022-06-27 01:32 | DI.VRAD_ITS ---
PROCEDURE INFORMATION: Exam: XR Chest Exam date and time: 06/27/2022 1:14 AM Age: 46 years old Clinical indication: Patient HX: Cough, R/O infiltrate TECHNIQUE: Imaging protocol: Radiologic exam of the chest. Views: 2 views. COMPARISON: XR PORTABLE CHEST AP 11/04/2021 11:26 AM FINDINGS: Lungs: The lung volumes are low. No focal pulmonary infiltrate or pulmonary edema. Pleural spaces: No pleural effusion or pneumothorax. Heart/Mediastinum: The cardiac silhouette is mildly enlarged. Bones/joints: No acute osseous abnormality. IMPRESSION: No acute findings. Dictated and Authenticated by: Gema Elias MD. Ordering:DEANDRA Oliveira MD
[2022-06-27] MEDS: Omnipaque 350 MG/ML 100 ML BTL IJ (01:45)
[2022-06-27] MEDS: Normal Saline Flush 10 ML SYR IVP (01:47)
--- NOTE | 2022-06-27 01:52 | DI.VRAD_ITS ---
PROCEDURE INFORMATION: Exam: CTA Head With Contrast, Arteries Exam date and time: 06/27/2022 12:55 AM Age: 46 years old Clinical indication: Stroke-like symptoms; Headache; Additional info: Brain surgery in 2019 TECHNIQUE: Imaging protocol: Computed tomographic angiography of the head with contrast, including non-contrast images if performed. 3D rendering (Not supervised by radiologist): MIP and/or 3D reconstructed images were created by the technologist. Radiation optimization: All CT scans at this facility use at least one of these dose optimization techniques: automated exposure control; mA and/or kV adjustment per patient size (includes targeted exams where dose is matched to clinical indication); or iterative reconstruction. Contrast material: OMNIPAQUE 350; Contrast volume: 85 ml; Contrast route: INTRAVENOUS (IV); COMPARISON: CT BRAIN CTA 01/30/2020 10:38 AM FINDINGS: ANTERIOR CIRCULATION: Right internal carotid artery: Intracranial segment is patent with no significant stenosis. No aneurysm. Right middle cerebral artery: No occlusion or significant stenosis. No aneurysm. Right anterior cerebral artery: A vascular stent is seen within the A1 segment with slight narrowing distal to the stent. No occlusion. This is stable from the prior study. No aneurysm. Anterior communicating artery: And aneurysmal coil is seen within the suprasellar region, for treatment of a prior anterior communicating artery aneurysm. Left internal carotid artery: Intracranial segment is patent with no significant stenosis. No aneurysm. Left middle cerebral artery: No occlusion or significant stenosis. No aneurysm. Left anterior cerebral artery: A vascular stent is seen within the M1 segment. No occlusion or significant stenosis. No aneurysm. POSTERIOR CIRCULATION: Right vertebral artery: Dominant. A stent is seen within the mid and distal V4 segment, which is unchanged from 01/30/2020 but new from 03/13/2019, where fusiform aneurysmal dilatation was present. Normal contrast opacification without occlusion or recurrent aneurysm. Left vertebral artery: Non-dominant. No occlusion or significant stenosis. No aneurysm. Basilar artery: No occlusion or significant stenosis. No aneurysm. Right posterior cerebral artery: No occlusion or significant stenosis. No aneurysm. Left posterior cerebral artery: No occlusion or significant stenosis. No aneurysm. Brain: No definite mass, mass effect, or midline shift. Cerebral ventricles: No ventriculomegaly. Bones/joints: Unremarkable. No acute fracture. Soft tissues: Unremarkable. IMPRESSION: 1. No large vessel stenosis or occlusion within the intracranial arteries. 2. 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 Stable and patent vascular stents are again seen within the A1 segment of the right JUAN CARLOS and M1 segment of the left MCA. 3. Stable patent vascular stent within the V4 segment of the right vertebral artery for treatment of a prior aneurysm. PROCEDURE INFORMATION: Exam: CTA Neck With Contrast Exam date and time: 06/27/2022 12:55 AM Age: 46 years old Clinical indication: Stroke-like symptoms; Headache; Additional info: Brain surgery in 2019 TECHNIQUE: Imaging protocol: Computed tomographic angiography of the neck with contrast. 3D rendering (Not supervised by radiologist): MIP and/or 3D reconstructed images were created by the technologist. Radiation optimization: All CT scans at this facility use at least one of these dose optimization techniques: automated exposure control; mA and/or kV adjustment per patient size (includes targeted exams where dose is matched to clinical indication); or iterative reconstruction. Contrast material: OMNIPAQUE 350; Contrast volume: 85 ml; Contrast route: INTRAVENOUS (IV); COMPARISON: CT BRAIN NECK CTA 03/13/2019 8:38 AM FINDINGS: Right common carotid artery: No stenosis. No dissection or occlusion. Right internal carotid artery: No stenosis of the extracranial segment. No dissection or occlusion. Right external carotid artery: No occlusion or stenosis of the origin. Left common carotid artery: No stenosis. No dissection or occlusion. Left internal carotid artery: No stenosis of the extracranial segment. No dissection or occlusion. Left external carotid artery: No occlusion or stenosis of the origin. Right vertebral artery: Dominant. No stenosis. No dissection or occlusion. Left vertebral artery: Non-dominant. No stenosis. No dissection or occlusion. Aorta: The great vessels of the level aortic arch opacify normally with contrast without stenosis, occlusion or dissection. Soft tissues: Normal. No significant soft tissue swelling. Bones/joints: No acute fracture. Lungs: The imaged lung apices are well aerated. IMPRESSION: No stenosis, dissection or occlusion within the extracranial arteries. REFERENCES: NASCET CRITERIA. The degree of internal carotid artery stenosis is based on NASCET criteria. Normal is no stenosis. Mild is less than 50% stenosis. Moderate is 50-69% stenosis. Severe is 70% to 99% stenosis. Total occlusion is no detectable patent lumen. Dictated and Authenticated by: Gema Elias MD. Ordering:DEANDRA Oliveira MD
[2022-06-27 02:14] VITALS: PULSE 72; O2SAT 98
[2022-06-27 02:38] VITALS: BP 128/78; PULSE 72; TEMP 36.2; O2SAT 98
[2022-06-27 03:01] VITALS: BP 128/78; PULSE 72; RESP 12; TEMP 36.2; O2SAT 98
== END 2022-06-27 03:03 | disposition home or self-care (01) ==
PROVIDERS: Emergency Provider Student in an Organized Health Care Education/Training Program; PCP Internal Medicine
DX: R51.9 Headache, unspecified (principal); R09.82 Postnasal drip; R05.9 Cough, unspecified; D72.829 Elevated white blood cell count, unspecified; I10 Essential (primary) hypertension; F17.210 Nicotine dependence, cigarettes, uncomplicated
CPT/HCPCS: 36415; 70496; 70498; 80053; 96361; 96374; 96375; 99285; 71046; 85025; 99284; J0131; J0780; J1200; J2270; J2930; J3490

== ENCOUNTER 2022-07-03 08:50 | Outpatient (REF) | payer OTHER, SELFPAY ==
--- OUTSIDE RECORDS SUMMARY | 2022-07-03 09:02 | XMS_ITS | Encounter Summary ---
:1975 Author Organization [facility] [place] [address] Care Team Providers Name Role Phone Ryne Harris MD Primary Care Provider Encounter Details Date Type Department Care Team Description 09/01/2019 [facility] [address] [facility] [place] [address] [facility] [phone] NEUROLOGY DEPT [place], [place] [address] (Wo rk) Social History Tobacco Use Types Packs/Day Years Used Date Former Smoker Cigarettes 1 20 Quit: 11/26/20 18 Smokeless Tobacco: Never Used Alcohol Use Standard Drinks/Week Comments Yes 0 (1 standard drink = 0.6 oz pure alcoho l) Very rare Alcohol Habits Answer Date Recorded How often do you have a drink containing alcohol? Never 05/19/2019 How many drinks containing alcohol do you have on a typical Not asked day when you are drinking? How often do you have six or more drinks on one occasion? No t asked Comment: Very rare 05/19/2019 Sex Assigned at Date Recorded Not on file documented as of this encounter Miscellaneous Notes Telephone Encounter - Alexandrea Pepe RN - 09/01/2019 3:04 PM EDT Per : Good afternoon Rubia, Hydroxyzine is a antihistamine. If he takes an cold medications with an anti histamine then he should not take the hydroxyzine. His local pharmacist (or PCP) should be able to help pick out a proper cold medicine. Thank you for your help Erasmo Chingleatha I phoned pt and reviewed/instructed above. He agrees with plan and verbalizes understanding. Telephone Encounter - Alexandrea Pepe RN - 09/01/2019 12:11 PM EDT Last visit 08/24/19 Next visit not yet scheduled I phoned patient back. He reports he has a terrible cold/cough with lots of congestion. He reports terrible headache. He would like to take his hydroxyzine but also wants to know what he can take for his cold/cough symptoms that will be safe with the hydroxyzine (he is also on lisinopril). He states he really needs to get some sleep. Current Outpatient Medications on File Prior to Visit Medication Sig Dispense Refill ??? ticagrelor (BRILINTA) 90 mg Tablet Take 1 tablet by mouth 2 times daily. 60 tablet 3 ??? aspirin 81 mg Tablet, Chewable Take 162 mg by mouth daily. 30 tablet 0 ??? acetaminophen (TYLENOL) 325 mg Tablet Take 650 mg by mouth every 4 hours as needed for Pain. ??? amLODIPine (NORVASC) 10 mg Tablet Take 1 tablet by mouth daily. 90 tablet 3 ??? hydrOXYzine (ATARAX) 25 mg Tablet Take 1 tablet by mouth daily as needed (headaches). 30 tablet 12 ??? lisinopril (PRINIVIL;ZESTRIL) 10 mg Tablet Take 1 tablet by mouth daily. 90 tablet 3 ??? melatonin 3 mg Tablet Take 2 tablets by mouth nightly. 60 tablet 3 ??? Miscellaneous Medical Supply [facility] [place] Blood pressure cuff - one 1 each 0 No current facility-administered medications on file prior to visit. Plan: I will forward to covering provider as is currently not available. Telephone Encounter - Yesenia Momin - 09/01/2019 8:07 AM EDT Clinical [place] Message Caller: Jaswant Call back Number: [phone] Reason for call: Call Back Message/information for the nurse: The pt called to talk to Dr. Nails. I spoke with the And he would like the pt to talk to a nurse. Disposition of Call ?? Routine Message sent to the Nurse documented in this encounter Plan of Treatment Not on filedocumented as of this encounter Visit Diagnoses Not on filedocumented in this encounter Care Teams Welder Gas Relationship Specialty Start Date End Date Ryne Harris MD PCP - General 10/23/10 [address] [place] [address] documented as of this encounter
--- OUTSIDE RECORDS SUMMARY | 2022-07-03 09:02 | XMS_ITS | Encounter Summary ---
:1975 Author Organization [facility] [place] [address] Care Team Providers Name Role Phone Ryne Harris MD Primary Care Provider Encounter Details Date Type Department Care Team Description 08/25/2019 Telephone Neurosurgery at [facility] [place] [address] Social History Tobacco Use Types Packs/Day Years [...] this encounter Miscellaneous Notes Telephone Encounter - Radha Carmona - 08/25/2019 4:54 PM EDT Caller: Patient Best time to reach caller: anytime Best number to reach caller: [phone] Reason for call: Patient states he is out of his ticagrelor (BRILINTA) 90 mg Tablet. He would like anew prescription faxed to: [id number] - [place], [place] - [address] [place] [address] [place] [id number] Recent Surgery?: no If before 4:00 pm: Inform caller that the typical expectation for a call back is within 1-2 hours. If after 4:00 pm: Inform caller that if the nurse does not call back by the end of the day, they will be called in the AM of the next business day. documented in this encounter Plan of Treatment Not on filedocumented as of this encounter Visit Diagnoses Not on filedocumented in this encounter Care Teams House Fellow Relationship Specialty Start Date End Date Ryne Harris MD PCP - General 10/23/10 [address] [place] [address] documented as of this encounter
--- OUTSIDE RECORDS SUMMARY | 2022-07-03 09:02 | XMS_ITS | Encounter Summary ---
:1975 Author Organization [facility] [place] [address] Care Team Providers Name Role Phone Ryne Harris MD Primary Care Provider Reason for Visit Reason Onset Date Comments Medication Refill 08/25/2019 Encounter Details Date Type Department Care Team Description 08/25/2019 Refill Neurosurgery at [facility] [place] Scott Rose, [address] [facility] [place] [address] [place] [address] [phone] (Wo rk) Social History Tobacco Use Types [...] on file documented as of this encounter Plan of Treatment Not on filedocumented as of this encounter Visit Diagnoses Not on filedocumented in this encounter Care Teams Head Correction Officer Relationship Specialty Start Date End Date Ryne Harris MD PCP - General 10/23/10 [address] [place] [address] documented as of this encounter
--- OUTSIDE RECORDS SUMMARY | 2022-07-03 09:02 | XMS_ITS | Encounter Summary ---
:1975 Author Organization [facility] [place] [address] Care Team Providers Name Role Phone Ryne Harris MD Primary Care Provider Encounter Details Date Type Department Care Team Description 09/01/2019 Telephone Neurology at [facility] Víctor Rivera, [facility] [place] [address] [facility] [phone] NEUROLOGY DEPT [place], [place] [address] (Wo rk) Social History Tobacco [...] this encounter Miscellaneous Notes Telephone Encounter - Víctor Rivera MD - 09/01/2019 6:55 AM EDT Caller: Jaswant Nice Reason for Call: Unknown Jaswant Nice is a 43 y.o. 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 Attempted to reach the caller but went to voicemail. Did not leave a message. 6:56 AM. Second attempt at 7:46 AM. Once again voicemail - no message was left. Víctor Rivera MD 09/01/19 N.B. Since we have not evaluated this patient, this is not an official consultation and we are not stating that a specific treatment decision is correct or incorrect. documented in this encounter Plan of Treatment Not on filedocumented as of this encounter Visit Diagnoses Not on filedocumented in this encounter Care Teams Child Advocate Relationship Specialty Start Date End Date Ryne Harris MD PCP - General 10/23/10 [address] [place] [address] documented as of this encounter
--- OUTSIDE RECORDS SUMMARY | 2022-07-03 09:02 | XMS_ITS | Encounter Summary ---
:1975 Author Organization [facility] [place] [address] Care Team Providers Name Role Phone Ryne Harris MD Primary Care Provider Reason for Referral Diagnostic Test (Routine) - Closed Specialty Diagnoses / Procedures Referred By Contact Refer red To Contact Radiology Diagnoses Brain aneurysm [facility] Neurosurgery [facility] Inter[facility] Rad Procedures [place] [address] [place] [address] Phone: Fax: Referral ID Status Reason Start Date Expiration Date Visits V isits Requested Authorized [id number] Closed Specialty 08/26/2019 08/25/2020 1 1 Service Requested Encounter Details Date Type Department Care Team Description 08/26/2019 Orders Only [place] [facility] [place]isa [place] [address] Social History Tobacco Use Types Packs/Day [...] Not on filedocumented as of this encounter Results IR Arteriogram Cerebral (01/14/2020 11:10 AM EST) Anatomical Region Laterality Modality X-Ray Angiography Specimen (Source) Anatomical Location Collection Method / Collectio n Time Received Time / Laterality Volume Impressions 02/27/2020 3:18 PM EDT : No filling of previously treated ACOM an d vertebral artery aneurysms. Moderate Sedation Attestation: Patient received split doses of intraven ous fentanyl and versed from the IR nurse while pulse, pressure, and oxyg en saturation were continuously monitored. Attending attestations: I was present during the intra-service t dee dee as documented by the IR Nurse I was the attending physician supervisin g the fellow in the above care and I was present with the fellow for the en tire procedure. Narrative 02/27/2020 3:[address] [facility] CEREBRAL ANGIOGRAPHY NOTE PATIENT NAME: ? Jaswant Nice : ?1975 MRN: ?[id number] CASE DATE: ?01/14/2020 ATTENDING: ?Nikolas Persaud MD ? ASSISTANTS: ? Quan Martin MD PREOPERATIVE DIAGNOSIS: Multiple intracranial aneurysms POSTOPERATIVE DIAGNOSIS: Same PROCEDURE: Diagnostic cerebral angiography Radial artery ultrasound for arterial ac cess TECHNIQUE: Selective catheterization and Angiogram: Left internal carotid artery Selective catheterization and Angiogram: Right vertebral artery ANESTHETIC Moderate sedation ?? INDICATIONS: This 44 y.o. 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 ??A follow-up diagnostic cerebral angiogram was offered to evaluate the treated aneurysm s and the surrounding vasculature. Risks, benefits, and alternatives were discussed in detail. ??The patient understood all risks and agreed to proce ed with the procedure. DESCRIPTION OF PROCEDURE: [facility] and positioned on the angiography table. ??B ilateral femoral regions and the right wrist were prepped and then steril al draped. ??A timeout was performed. ??Using ultrasound guidance, the right radial artery was identified and accessed with a micropunc ture kit. ??A 5Fr Glidesheath was then inserted without complication. ??Th e radial artery was pre-treated with spasmolytics and then connected to a constant heparinized drip. ?? A 5Fr Vert catheter was advanced into th e sheath over a 0.035 Glidewire. ?? The catheter was brought over the aortic arch and positioned in the descending aorta. ??The left common raza tid artery was selected. ??A roadmap was obtained and then the left internal carotid artery was selected. ??An angiogram of the left ICA was performed to get intracranial AP, lateral, and magnified oblique views. The catheter was next withdrawn to the a ortic arch and then pulled back into the right subclavian artery. ??The right vertebral artery was selected and biplane angiography was performed. ? ?The diagnostic catheter was then completely withdrawn from the body. ??Th e right radial sheath was next removed while applying the TR band for c ompression. ??There were no complications during the procedure. ??Th e patient was hemodynamically stable and taken to the recovery room at her neurologic baseline. FINDINGS: Left internal carotid artery angiogram: AP, lateral, and magnified oblique views of the intracranial ICA segment an d its proximal branches are of normal caliber and course. ??The MCA and JUAN CARLOS vessels fill briskly. ??The previously coiled ACOM aneurysm has no c oil compaction or recurrence. ??The stented segment of the JUAN CARLOS shows no sten osis or filling defects. Right vertebral artery angiogram: AP, la teral, and magnified oblique views show normal arterial, capillary, and analisa ous opacification. ??The PICA and branches of the basilar artery fill norm ally. ??There is complete endoluminal reconstruction of the fusifo rm segment of the intradural right vertebral artery. ??There is no filling of the fusiform aneurysm as well as absence of any in-stent stenosis or fill ing defects. ??The anterior spinal artery is patent. Nikolas Persaud MD IMG IR ORDERABLES documented in this encounter Visit Diagnoses Diagnosis Brain aneurysm Cerebral aneurysm, nonruptured 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 Brain aneurysm Cerebral aneurysm, nonruptured documented in this encounter Care Teams Resource Economist Relationship Specialty Start Date End Date Ryne Harris MD PCP - General 10/23/10 [address] [place] [address] documented as of this encounter
--- OUTSIDE RECORDS SUMMARY | 2022-07-03 09:02 | XMS_ITS | Encounter Summary ---
:1975 Author Organization [facility] [place] [address] Care Team Providers Name Role Phone Ryne Harris MD Primary Care Provider Reason for Referral Diagnostic Test (Routine) - Closed Specialty Diagnoses / Procedures Referred By Contact Refer red To Contact Radiology Diagnoses Brain aneurysm [facility] Neurosurgery [address] [place] [address] Interventionl Rad Procedures [place] [address] [place] [address] Phone: Fax: Referral ID Status Reason Start Date Expiration Date Visits V isits Requested Authorized [id number] Closed Specialty 08/26/2019 08/25/2020 1 1 Service Requested Reason for Visit Diagnostic Test (Routine) - Closed Specialty Diagnoses / Procedures Referred By Contact Refer red To Contact Radiology Diagnoses Brain aneurysm [facility] Neurosurgery [address] [place] [address] Interventionl Rad [place] [address] [place] [address] Phone: Fax: Referral ID Status Reason Start Date Expiration Date Visits V isits Requested Authorized [id number] Closed Specialty 08/26/2019 08/25/2020 1 1 Service Requested Encounter Details Date Type Department Care Team Description 01/14/2020 Hospital Encounter Radiology at [facility] Nikolas Persaud, Aneurysm of vertebral artery ; [facility] [address] [place], [place] C[place] [address] NEUROSURGERY [phone] [place] [address] Social History Tobacco Use Types Packs/Day Years Used Date Former Smoker Cigarettes 1 20 Quit: 11/26/20 18 Smokeless Tobacco: Never Used Alcohol Use Standard Drinks/Week Comments Yes 0 (1 standard drink = 0.6 oz pure alcoho l) Very rarely. Alcohol Habits Answer Date Recorded How often do you have a drink containing alcohol? Never 05/19/2019 How many drinks containing alcohol do you have on a Not aske d typical day when you are drinking? How often do you have six or more drinks on one occasion? No t asked Comment: Very rarely. 01/11/2020 Sex Assigned at Date Recorded Not on file documented as of this encounter Last Filed Vital Signs Vital Sign Reading Time Taken Comments Blood Pressure 146/76 01/14/2020 1:45 PM EST Pulse 70 01/14/2020 11:00 AM EST Temperature 37.1 ??C (98.7 ??F) 01/14/2020 11:11 AM EST Respiratory Rate 18 01/14/2020 1:45 PM EST Oxygen Saturation 97% 01/14/2020 1:45 PM EST Inhaled Oxygen Concentration - - Weight - - Height - - Body Mass Index - - documented in this encounter Discharge Instructions Discharge InstructionsMelanie Campos RN - 01/14/2020 10:20 AM EST [facility] Interventional Radiology Radial Artery Instructions Procedure: Diagnostic Cerebral Angiogram Puncture Site: Right Radial Date: 01/14/2020 Physician: Hung NIÑO 1. At home we advise you to rest quietly in bed or on the couch until the next morning. You may get up and walk around but keep your activity to a minimum. DO NOT USE WRIST OF AFFECTED SIDE TO PUSH YOURSELF UP IN BED OR CHAIR TO SHIFT POSITION FOR 12 HOURS POST PROCEDURE. 2. Resume your previous diet. Drink 6-8 ounces of fluid per hour for the next 8 hours. Avoid alcoholic or caffeinated beverages for 24 hours. If you are a diabetic and take Metformin or Janumet or the combination med's that include Metformin, DO NOT take for 2 days after the procedure. 3. Avoid strenuous activity for the next 48 hours, particularly in the next 24 hours. Do not lift anything for the next 48 hours or engage in any sports activity for 48 hours. You may engage in sexual activity after 48 hours. Problems to watch for: 1. If you develop bleeding at the puncture site, put direct pressure on the site for 15 minutes and call your doctor. Call for help. If the bleeding persists, reapply firm pressure, call 911 for an ambulance and go to your local Emergency Department. 2. If you notice a sudden change in the feeling (numbness, tingling and/or pain) of your hand on theside of the puncture call your doctor. 3. You may develop a bruise and swelling at the catheter insertion site. If you develop a bulge, youmay have bleeding inside. Contact your doctor or the Radiology/Vascular Department here. Report signs of infection (redness, swelling, discharge, soreness, or fever) to your doctor. 4. Leave the bandage on for 24-48 hours. A little spot of blood at the catheter insertion site is normal. A small lump or bruise under the skin is normal. They generally disappear in 3-4 days. You may shower the following day after the procedure. You should NOT swim or tub bathe for 48 hours. 5. Expect some mild tenderness over the catheter insertion area. You will notice this after the local anesthetic wears off. This should improve during the 24-48 hours after the procedure. Take tylenol if needed. Contact your doctor is the discomfort worsens. 6. Watch for signs for infection at the catheter site for the first few days at home. Signs include:Redness, swelling with increased soreness, yellow, green or brown fowl smelling drainage. If you think you may have these symptoms, take your temperature, then call your doctor. 7. You have received medication during your procedure to help lessen anxiety and keep you comfortable and which affects judgement and reaction time. We recommend that you do not drive, operate equipment, sign any important documents, or smoke unattended for 24 hours following your procedure. Because of the sedation please be careful on stairs, as you may be unsteady on your feet. You may return to [facility] with the above restrictions on . The limb where the catheter was inserted should look and feel normal in color, sensation, and temperature. If your arm/hand becomes cool, pale, blue or changing color with numbess and tingling, CALL YOUR DOCTOR. If you have any questions or concerns, please call Interventional Radiology Department at until 6pm. After 6pm, or on weekends or hoildays, gael and ask for the vice president of engineering data processing systems consultant. OR Peripheral IV site -- slight redness, or tenderness is normal, you can use a warm compress. If tenderness and redness increases or foul drainage occurs, please contact your M. D. Revised 09/16/19 documented in this encounter Medications at Time of Discharge Medication Sig Dispensed Refills Start Date End Date ticagrelor (BRILINTA) 90 Take 1 tablet by 60 tablet 3 08/25 mg TabletIndications: mouth 2 times daily. Aneurysm of vertebral artery aspirin 81 mg Tablet, Take 162 mg by mouth 30 tablet 0 04/01 Chewable daily. acetaminophen (TYLENOL) Take 650 mg by mouth 0 325 mg Tablet every 4 hours as needed for Pain. amLODIPine (NORVASC) 10 mg Take 1 tablet by 90 tablet 3 Tablet mouth daily. hydrOXYzine (ATARAX) 25 mg Take 1 tablet by 30 tablet 12 Tablet mouth daily as needed (headaches). lisinopril Take 1 tablet by 90 tablet 3 03/19/2019 (PRINIVIL;ZESTRIL) 10 mg mouth daily. Tablet melatonin 3 mg Tablet Take 2 tablets by 60 tablet 3 019 mouth nightly. Miscellaneous Medical Blood pressure cuff - 1 each 0 Supply Misc one documented as of this encounter Progress Notes Melanie Campos RN - 01/14/2020 11:02 AM EST TR BAND REMOVAL TIME ARRIVED IN RECOVERY ROOM: TIME TR BAND APPLIED: 1100 NO BP'S, LAB DRAWS, IV'S ON AFFECTED ARM FOR 24 HOURS TIME REMOVAL STARTED: 3 cc's removed (45 minutes after application) -check CSM ulnar pulse, bleeding, hematoma at site Intact. IF NO BLEEDING OCCURS: 3 cc's removed-check CSM intact, ulnar pulse, bleeding, hematoma at site (every 5 min. until all air is removed) TR BAND POLICY: If no bleeding occurs, continue to remove 3 cc's every 5 minutes until all air is removed from TR Band. If bleeding does occur, reinflate with 3 cc's and wait 15 minutes. Restart releasing 3 cc's of air every 5 minutes until all air is removed. Leave TR Band in place. If site is free of bleeding or hematoma after 5 minutes, remove TR Band and apply sterile dressing to site. TIME TR BAND REMOVED AND DRESSING APPLIED: 1100 Evaluate site for bleeding every 15 minutes X 4 after TR Band removal. Pt. And route delivery service driver given radial d/c instructions. All questions/concerns addressed. Melanie Arroyo RN - 01/14/2020 9:49 AM EST To procedure room 4 via stretcher. Onto table supine. All monitors, O2, safety strap in place. Med'sper protocol. Melanie Arroyo RN - 01/14/2020 9:48 AM EST ANGIO NURSING DATABASE Name: JAIME GUZMAN Date of : 1975 AGE: 44 y.o. [address]: [address] [place] [phone] (home) Mobile: Telephone Information: Referring Provider: Nikolas Persaud REASON FOR VISIT: Diagnostic Cerebral Angiogram Where will study be performed? [facility] Radiology [120] Is the patient on anticoagulant / anitplatelet therapy? Other: see comments field,Aspirin Reason for exam and clinical history: DSA Clinical information / [place] questions: Brilinta *No provider workup at time of nursing workup. Allergies Allergen Reactions ??? Toradol [Ketorolac] Shortness Of Breath Pertinent PMH: Patient Active Problem List Diagnosis Code ??? Headache R51 ??? 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 Intracranial aneurysm I67.1 ??? Aneurysm of artery I72.9 ??? Brain aneurysm I67.1 ??? 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 Laboratory Results: Lab Results Component Value Date INR 1.0 03/24/2019 Lab Results Component Value Date CREATININE 0.64 (L) 03/26/2019 Lab Results Component Value Date K 3.6 03/26/2019 Lab Results Component Value Date PLATELET 275 04/20/2019 documented in this encounter H&P Notes Quan Martin MD - 01/14/2020 9:19 AM EST INTERVENTIONAL RADIOLOGY FOCUSED H&P and PRE-PROCEDURE NOTE: PCP: Ryne Harris MD Referring Provider: Nikolas Persaud Planned Procedure: Planned procedure: cerebral angiography Presenting Diagnosis/ Complaint: Jaime Guzman is a 44 y.o. male with a history of unruptured cerebralaneurysms. 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 He has been neurologically intact since these procedures but complains of groin pain when he doesn't take Brilinta. He does admit to continuing to smoke approximately a half pack of cigarettes daily. Otherwise no changes in health status. Past Medical/Surgical History: Patient Active Problem List Diagnosis Code ??? Headache R51 ??? 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 Intracranial aneurysm I67.1 ??? Aneurysm of artery I72.9 ??? Brain aneurysm I67.1 ??? 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 Headache 03/13/2019 ??? Intracranial aneurysm 03/24/2019 Past Surgical History: Procedure Laterality Date ??? IR ARTERIOGRAM CEREBRAL 03/25/2019 IR Arteriogram Cerebral 03/25/2019 Nikolas Persaud MD [facility] INTERVENTIONL RAD ??? IR EMBOLIZATION INTRACRANIAL 04/12/2019 IR Embolization Intracranial 04/12/2019 Nikolas Persaud MD [facility] INTERVENTIONL RAD ??? IR EMBOLIZATION INTRACRANIAL 04/19/2019 IR Embolization Intracranial 04/19/2019 Nikolas Persaud MD [facility] INTERVENTIONL RAD ??? PRO PERM OCCLUSION/EMBOLIZATION, PERCUT, TAPE LIBRARIAN N/A 04/12/2019 @TRANSCATHETER OCCLUSION/EMBOLIZATION FOR TUMOR DESTRUCTION performed by Nikolas Persaud MD at [facility] [place] ??? PRO PERM OCCLUSION/EMBOLIZATION, PERCUT, TAPE LIBRARIAN N/A 04/19/2019 @TRANSCATHETER OCCLUSION/EMBOLIZATION FOR TUMOR DESTRUCTION performed by Nikolas Persaud MD at [facility] [place] ??? XR FLUORO GUIDED LUMBAR PUNCTURE N/A 03/13/2019 XR Fluoro Lumbar Puncture 03/13/2019 [facility] RAD XRAY Medications: Current Outpatient Medications on File Prior to Encounter Medication Sig Dispense Refill ??? ticagrelor (BRILINTA) [...] 60 tablet 3 ??? Miscellaneous Medical Supply [facility] Blood pressure cuff - one 1 each 0 No current facility-administered medications on file prior to encounter. Allergies: Toradol [ketorolac] Social History and Habits: Social History Socioeconomic History ??? Marital status: Single Spouse name: Not on file ??? Number of children: Not on file ??? Years of education: Not on file ??? Highest education level: Not on file Occupational History ??? Not on file Social Needs ??? Financial resource strain: Not on file ??? Food insecurity Worry: Not on file Inability: Not on file ??? Transportation needs Medical: Not on file Non-medical: Not on file Tobacco Use ??? Smoking status: Former Smoker Packs/day: 1.00 Years: 20.00 Pack years: 20.00 Types: Cigarettes Last attempt to quit: 11/26/2018 Years since quittin.1 ??? Smokeless tobacco: Never Used Substance and Sexual Activity ??? Alcohol use: Yes Frequency: Never Comment: Very rarely. ??? Drug use: Yes Types: Marijuana ??? Sexual activity: Not on file Lifestyle ??? Physical activity Days per week: Not on file Minutes per session: Not on file ??? Stress: Not on file Relationships ??? Social connections Talks on phone: Not on file Gets together: Not on file Attends sabianism service: Not on file Active member of club or organization: Not on file Attends meetings of clubs or organizations: Not on file Relationship status: Not on file ??? Intimate partner violence Fear of current or ex partner: Not on file Emotionally abused: Not on file Physically abused: Not on file Forced sexual activity: Not on file Other Topics Concern ??? Not on file Social History Narrative ??? Not on file Significant Family History: No family history on file. Pertinent ROS: as per HPI Labs: Lab Results Component Value Date WBC 10.9 (H) 01/14/2020 HCT 44.3 01/14/2020 PLATELET 233 01/14/2020 INR 1.0 01/14/2020 BUN 12 03/26/2019 CREATININE 0.74 (L) 01/14/2020 ALKPHOS 54 03/16/2019 AST 22 03/16/2019 ALBUMIN 3.7 03/16/2019 BILIDIR 0.1 03/15/2019 BILITOT 0.2 03/16/2019 ALT 43 03/16/2019 PROT 6.2 03/16/2019 Physical Exam: Gen: alert, oriented, appropriate Pulm: CTAB CV: RRR Abd: non distended Vasc: palpable b/l radial and femoral pulses Neuro: strength 5/5 b/l upper and lower extremities ASA: 2 Mallampati Class: 1 Assessment: 44 y.o. male s/p stent assisted coiling of ACOM aneurysm and pipeline flow diversion embolization of right vertebral artery fusiform aneursym. He returns for angiographic follow up. Plan: Plan Planned procedure: cerebral angiography Sedation: moderate (conscious sedation) Prophylactic antibiotic : None Contrast: Visipaque Additional medications for procedure: Lidocaine, Other (see comments) Planned access site: likely right radial artery Position: Supine Consent: Completed 01/14/2020 documented in this encounter Plan of Treatment Not on filedocumented as of this encounter Procedures Procedure Name Priority Date/Time Associated Comments Diagnosis IR ARTERIOGRAM Routine 01/14/2020 11:10 Brain aneurysm Results for this CEREBRAL AM EST procedure are i n the results section. documented in this encounter Results IR Arteriogram Cerebral (01/14/2020 [...] tire procedure. Narrative 02/27/2020 3:18 PM EDT [facility] CEREBRAL ANGIOGRAPHY NOTE PATIENT NAME: ? Jaime Erwin Guzman : ?1975 MRN: ?[id number] CASE DATE: ?01/14/2020 ATTENDING: ?Nikolas Persaud MD [...] PROCEDURE: The patient was brought to the [facility] ional radiology suite and positioned on the angiography [...] patent. Nikolas Persaud MD IMG IR ORDERABLES (ABNORMAL) Hemogram (01/14/2020 8:08 AM EST) Analysis Performed At Patho logist Time Signature WBC 10.9 (H) 4.0 - 9.5 [facility] x10(3)/[facility] LABORATORY RBC 4.63 4.58 - [facility] 5.54 [facility] x10(6)/[facility] LABORATORY Hemoglobin 14.9 13.7 - [facility] 16.5 gm/dL [facility] LABORATORY Hematocrit 44.3 40.5 - [facility] 48.5 % [facility] LABORATORY MCV 95.7 (H) 82.9 - [facility] 93.1 [facility] LABORATORY MCH 32.2 (H) 27.5 - [facility] 32.1 [facility] LABORATORY MCHC 33.6 32.0 - [facility] 35.7 gm/dL [facility] LABORATORY Platelets 233 145 - 357 [facility] x10(3)/[facility] LABORATORY RDWSD 43.0 36.0 - [facility] 45.0 [facility] LABORATORY RDWCV 12.3 11.4 - [facility] 13.8 % [facility] LABORATORY MPV 9.4 7.6 - 12.9 [facility] LABORATORY nRBC % Auto 0.0 % [facility] LABORATORY nRBC Abs Auto 0.000 0.000 - [facility] 0.000 [facility] x10(3)/[facility] LABORATORY Specimen Anatomical Collection Method Collection Time Receive d Time (Source) Location / / Volume Laterality Blood specimen 01/14/2020 8:08 AM 020 8:11 (specimen) EST AM EST Resulting Agency Comment Spec In Lab Nikolas Persaud MD HEMATOLOGY ORDERABLES Performing Organization Address City/[facility]/[place] [address] (ABNORMAL) Creatinine (01/14/2020 8:08 AM EST) Analysis Performed At Patho logist Time Signature Creatinine 0.74 (L) 0.80 - [facility] 1.50 mg/dL [facility] LABORATORY Estimated GFR 113 >=60 [facility] mL/min/1.7 [facility] 3 m?? HOSPITAL LABORATORY Comment: The eGFR was calculated using the CKD-EP I equation. As with all creatinine based estimates of kidney function, eGFR values calculated with the CKD-EPI equation are not accurate in patients wi th acute kidney failure, extremes of body mass or the acutely ill. http://[employer]/[facility] eGFR 131 >=60 mL/min/1.73 m?? [facility] LABORATORY Comment: The eGFR was calculated using the CKD-EP I equation. As with all creatinine based estimates of kidney function, eGFR values calculated with the CKD-EPI equation are not accurate in patients wi th acute kidney failure, extremes of body mass or the acutely ill. http://[employer]/[facility] Specimen Anatomical Collection Method Collection Time Receive d Time (Source) Location / / Volume Laterality Blood specimen 01/14/2020 8:08 AM 020 8:11 (specimen) EST AM EST Resulting Agency Comment Spec In Lab Nikolas Persaud MD CHEMISTRY ORDERABLES Performing Organization Address City/State/ZIP Code Phon e Number [place] [id number] Prothrombin Time (01/14/2020 8:08 AM EST) P athologist Signature PT 11.4 9.4 - 12.5 [facility] LABORATORY INR 1.0 [facility] LABORATORY Comment: An INR <2.0 indicates adequate procoagul ant activity for hemostasis in most patients without underlying bleeding dis orders, though the INR may not adequately reflect hemostatic capacity i n patients with liver disease and synthetic impairment. The recommended ta rget INR range for therapeutic anticoagulation is 2.0 ? 3.0 for most applications, though lower and higher ranges may be appropriate depending on c linical circumstances. 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 Brain aneurysm Cerebral aneurysm, nonruptured documented in this encounter Administered Medications Inactive Administered Medications - up to 3 most recent administrations Medication Order MAR Action Action Date Dose Rate Site fentaNYL (PF) 50 mcg/mL injection 1 dose, Starting on Fri01/14/20 at 0914, Until 01/01 at 0958, Melanie Camposinet override fentaNYL 50 mcg/mL multi-dose injection Given 01/14/2020 11:05 AM EST 50 mcg 25-50 mcg, Intravenous, EVERY 3 MIN PRN, Starting on Fri01/14/20 at 0927, Until Fri01/14/20 at 1401, Pain, per unit protocol, - Start dose 50 mcg (reduce dose to 25 mcg if history of sedation sensitivity). - Titration dose 25-50 mcg IV, (based on patient response) every 3 minutes PRN, to maintain procedural pain less than 2 per pain Scale. Maximum dose: 50 mcg/dose, 250 mcg/hour For use in Interventional Radiology (IR) only for procedural sedation with direct provider supervision and verbal order., Angio/IR (Intra-Procedure), Routine Given 01/14/2020 10:15 AM EST 25 mcg Given 01/14/2020 10:11 AM EST 25 mcg heparin (porcine) 1,000 unit/mL Given 01/14/2020 10:17 AM EST 3, 000 Units injection 3,000 Units 3,000 Units, Intra-arterial, ONCE, 1 dose, On Fri01/14/20 at 0945, For radial artery access. For use in Interventional Radiology (IR) only for procedure with direct provider supervision and verbal order., Angio/IR (Intra-Procedure), Routine iodixanoL (VISIPAQUE) 320 mg iodine/mL Given 01/14/2020 11:11 AM EST 75 mLs injection 200 mL 200 mL, Intra-arterial, ONCE PRN, 1 dose, Starting on Fri01/14/20 at 1110, Until Fri01/14/20 at 1111, Per Protocol, Routine lidocaine (XYLOCAINE) 10 mg/mL (1 %) Given 01/14/2020 10:[address] 10 mg injection 10 mg 10 mg, Subcutaneous, ONCE, 1 dose, On Fri01/14/20 at 0945, For use in Interventional Radiology (IR) only for procedure with direct provider supervision and verbal order., Angio/IR (Intra-Procedure), Routine midazolam (PF) (VERSED) 1 mg/mL injectio n 1 dose, Starting on Fri01/14/20 at 0914, Until 01/01 at 0958, Melanie Campos: cabinet override midazolam (PF) (VERSED) multi-dose injection Given 10:15 AM EST 0.5 mg 0.5-1 mg 0.5-1 mg, Intravenous, EVERY 3 MIN PRN, Starting on Fri01/14/20 at 0927, Until Fri01/14/20 at 1401, Sleep, - Start dose; 1 mg (Reduce dose to 0.5 mg if history of sedation sensitivity). - Titration dose: 0.5 mg - 1 mg (based on patient response) every 3 minutes PRN to obtain RASS score of -3. Maximum dose: 1 mg per dose, 5 mg/hour. For use in Interventional Radiology (IR) only for procedural sedation with direct provider supervision and verbal order., Angio/IR (Intra-Procedure), Routine Given 01/14/2020 10:11 AM EST 0.5 mg Given 01/14/2020 10:02 AM EST 0.5 mg nitroGLYcerin 100 mcg/mL intracoronary Given 01/14/2020 10:17 AM EST 200 mcg dilution 200 mcg 200 mcg, Intra-arterial, ONCE, 1 dose, On Fri01/14/20 at 0945, For radial artery access. For use in Interventional Radiology (IR) only for procedure with direct provider supervision and verbal order., Angio/IR (Intra-Procedure), Routine verapamiL (ISOPTIN) injection 2.5 mg Given 01/14/2020 10:18 AM EST 2.5 mg 30 mL/hr 2.5 mg, Intra-arterial, ONCE, 1 dose, On Fri01/14/20 at 0945, Administer over 2 Minutes, For radial artery access. For use in Interventional Radiology (IR) only for procedure with direct provider supervision and verbal order., Angio/IR (Intra-Procedure) documented in this encounter Care Teams Billing Control Clerk Relationship Specialty Start Date End Date Ryne Harris MD PCP - General 10/23/10 [address] [place] [address] documented as of this encounter
--- OUTSIDE RECORDS SUMMARY | 2022-07-03 09:02 | XMS_ITS | Encounter Summary ---
:1975 Author Organization [place] [address] Care Team Providers Name Role Phone Ryne Harris MD Primary Care Provider Reason for Referral Diagnostic Test (Routine) - Closed Specialty Diagnoses / Procedures Referred By Contact Refer red To Contact Radiology Diagnoses Chronic migraine without aura without status migrainosus, not intractable Dejon Dey MD [facility] Rad Mri Procedures MRI Brain wo Contrast [facility] [place] [address] [place] [address] Referral ID Status Reason Start Date Expiration Date Visits V isits Requested Authorized [id number] Closed Specialty 08/13/2019 11/11/2019 1 1 Service Requested Reason for Visit Diagnostic Test (Routine) - Closed Specialty Diagnoses / Procedures Referred By Contact Refer red To Contact Radiology Diagnoses Chronic migraine without aura without status migrainosus, not intractable Dejon Dey MD [facility] Rad Mri Procedures MRI Brain wo Contrast [facility] [place] [address] [place] [address] Referral ID Status Reason Start Date Expiration Date Visits V isits Requested Authorized [id number] Closed Specialty 08/13/2019 11/11/2019 1 1 Service Requested Encounter Details Date Type Department Care Team Description 08/24/2019 Hospital Encounter MRI [place] [facility] [place] Ghassan Steven Chronic migraine [facility] MD Benny without aura without Drive [facility] status migrainosus, [place], [place] [address] ellen xiao [address] NEUROLOGY DEPT. [phone] [place] [address] Social History Tobacco Use Types Packs/Day Years [...] on file documented as of this encounter Medications at Time of Discharge Medication Sig Dispensed Refills Start Date End Date aspirin 81 mg Tablet, Take 162 mg by mouth 30 tablet 0 04/01 Chewable daily. acetaminophen (TYLENOL) Take 650 mg by mouth 0 325 mg Tablet every 4 hours as needed for Pain. amLODIPine (NORVASC) 10 Take 1 tablet by 90 tablet 3 2018 mg Tablet mouth daily. hydrOXYzine (ATARAX) 25 Take 1 tablet by 30 tablet 12 2018 mg Tablet mouth daily as needed (headaches). lisinopril Take 1 tablet by 90 tablet 3 03/19/2019 (PRINIVIL;ZESTRIL) 10 mg mouth daily. Tablet melatonin 3 mg Tablet Take 2 tablets by 60 tablet 3 019 mouth nightly. Miscellaneous Medical Blood pressure cuff 1 each 0 03/18 Supply [facility] - one amitriptyline (ELAVIL) 10 Take 1 tablet by 60 tablet 3 05/0108/26/2019 mg Tablet mouth nightly. ticagrelor (BRILINTA) 90 Take 1 tablet by 60 tablet 3 04/1408/25/2019 mg Tablet mouth 2 times daily. documented as of this encounter Plan of Treatment Not on filedocumented as of this encounter Procedures Procedure Name Priority Date/Time Associated Diagnosis Comme nts MRI BRAIN WO Routine 08/24/2019 1:45 PM Chronic migraine Resul ts for this CONTRAST EDT without aura without procedu re are in status migrainosus, the resu lts not intractable section. documented in this encounter Results MRI Brain wo Contrast (08/24/2019 1:45 PM EDT) Anatomical Region Laterality Modality Head Magnetic Resonance Specimen (Source) Anatomical Location Collection Method / Collectio n Time Received Time / Laterality Volume Impressions 08/24/2019 3:27 PM EDT Normal exam Thank you for letting us participate in the care of this patient. For questions regarding this report, please contact [facility] number below. ? Narrative 08/24/2019 3:27 PM EDT EXAMINATION: MRI BRAIN WO CONTRAST CLINICAL HISTORY: patient with history o f left arm and leg weakness and headache now resolved. Previously unable to get M RI but now can. TECHNIQUE: MRI of the brain performed without intra venous contrast administration. COMPARISON: CT head 03/14/2019 FINDINGS: No acute infarction, mass, mass effect. Ventricles and extra axial spaces are normal. Major intracranial flow voids ar e normal. Parenchymal signal is normal. Calvarium and extra calvarial soft tissu es are unremarkable. Procedure Note Zulma Briggs MD - 08/24/2019Formatt ing of this note might be different from the original. EXAMINATION: MRI BRAIN WO CONTRAST CLINICAL HISTORY: patient with history o f left arm and leg weakness and headache now resolved. Previously unable to get M RI but now can. TECHNIQUE: MRI of the brain performed without intra venous contrast administration. COMPARISON: CT head 03/14/2019 FINDINGS: No acute infarction, mass, mass effect. Ventricles and extra axial spaces are normal. Major intracranial flow voids ar e normal. Parenchymal signal is normal. Calvarium and extra calvarial soft tissu es are unremarkable. IMPRESSION Normal exam Thank you for letting us participate in the care of this patient. For questions regarding this report, please contact e number below. Ghassan Steven MD IMG MRI ORDERABLES documented in this encounter Visit Diagnoses Diagnosis Chronic migraine without aura without st atus migrainosus, not intractable Chronic migraine without aura, without m ention of intractable migraine without mention of status migrainosus documented in this encounter Care Teams Snow Plow Operator Relationship Specialty Start Date End Date Ryne Harris MD PCP - General 10/23/10 [address] [place] [address] documented as of this encounter
--- OUTSIDE RECORDS SUMMARY | 2022-07-03 09:02 | XMS_ITS | Encounter Summary ---
:1975 Author Organization [facility] [place] [address] Care Team Providers Name Role Phone Ryne Harris MD Primary Care Provider Encounter Details Date Type Department Care Team Description 12/23/2021 Ancillary Procedure Radiology Library at Kevon Harris, [facility] [address] [place] [phone] Social History Tobacco Use Types Packs/Day Years [...] Name Priority Date/Time Associated Diagnosis Comme nts FILM LIBRARY Routine 12/23/2021 12:00 AM Results for this STORAGE ONLY CT EST procedure ar e in CHEST the results section. documented in this encounter Results Film Library- Storage Only CT Chest (12/23/2021 12:00 AM EST) Specimen (Source) Anatomical Location Collection Method / Collectio n Time Received Time / Laterality Volume Narrative RAD - 01/14/2022 2:59 PM EST This exam is auto-finalizing. It's purpo se is for storage only. Ryne Harris MD IMG FILM LIBRARY ORDERABLES Performing Organization Address City/State/ZIP Code Phon e Number [place], [place] documented in this encounter Visit Diagnoses Not on filedocumented in this encounter Care Teams Marketing Planner Relationship Specialty Start Date End Date Ryne Harris MD PCP - General 10/23/10 [address] [place] [address] documented as of this encounter
--- OUTSIDE RECORDS SUMMARY | 2022-07-03 09:02 | XMS_ITS | Encounter Summary ---
:1975 Author Organization [facility] [place] [address] Care Team Providers Name Role Phone Ryne Harris MD Primary Care Provider Encounter Details Date Type Department Care Team Description 01/14/2020 Laboratory Appointment Lab 3L [facility] Aneurysm of vertebral [facility] [place] [id number] Social History Tobacco Use Types Packs/Day Years [...] Procedure Name Priority Date/Time Associated Comments Diagnosis HC HEMOGRAM STAT 01/14/2020 8:08 AM Aneurysm of Results f or this EST vertebral artery procedure a re in the results section. HC CREATININE STAT 01/14/2020 8:08 AM Aneurysm of Results for this EST vertebral artery procedure a re in the results section. HC PROTHROMBIN TIME STAT 01/14/2020 8:08 AM Aneurysm of Re sults for this EST vertebral artery procedure a re in the results section. documented in this encounter Results Prothrombin Time (01/14/2020 8:08 AM EST) P athologist Signature PT 11.4 9.4 - 12.5 [facility] LABORATORY INR 1.0 [facility] LABORATORY Comment: An INR <2.0 indicates adequate [...] Persaud MD HEMATOLOGY ORDERABLES Performing Organization Address City/State/[place] [address] (ABNORMAL) Creatinine (01/14/2020 8:08 AM EST) Analysis Performed At Patho logist Time Signature Creatinine 0.74 (L) 0.80 - [facility] 1.50 mg/dL [facility] LABORATORY Estimated GFR 113 >=60 [facility] mL/min/1.7 [facility] 3 ?? HOSPITAL LABORATORY Comment: The eGFR was calculated using the CKD-EP I equation. As with all creatinine based estimates of kidney function, eGFR values calculated with the CKD-EPI equation are not accurate in patients wi th acute kidney failure, extremes of body mass or the acutely ill. [email or web address] eGFR 131 >=60 mL/min/1.73 m?? [facility] LABORATORY Comment: The eGFR was calculated using the CKD-EP I equation. As with all creatinine based estimates of kidney function, eGFR values calculated with the CKD-EPI equation are not accurate in patients wi th acute kidney failure, extremes of body mass or the acutely ill. [email or web address] Specimen Anatomical Collection Method Collection Time Receive d Time (Source) Location / / Volume Laterality Blood specimen 01/14/2020 8:08 AM 020 8:11 (specimen) EST AM EST Resulting Agency Comment Spec In Lab Nikolas Persaud MD CHEMISTRY ORDERABLES Performing Organization Address City/State/[place] [address] (ABNORMAL) Hemogram (01/14/2020 8:08 AM EST) Analysis Performed At Patho logist Time Signature WBC 10.9 (H) 4.0 - 9.5 [facility] LABORATORY RBC 4.63 4.58 - [place] [place] 5.54 [facility] x10(6)/[facility] LABORATORY Hemoglobin 14.9 13.7 - [place] [place] 16.5 gm/dL [facility] LABORATORY Hematocrit 44.3 40.5 - [facility] S[place] 48.5 % [facility] LABORATORY MCV 95.7 (H) 82.9 - [facility] 93.1 [facility] LABORATORY MCH 32.2 (H) 27.5 - [facility] S[place] 32.1 pg [facility] LABORATORY MCHC 33.6 32.0 - [facility] SANTIAG[place] 35.7 gm/dL [facility] LABORATORY Platelets 233 145 - 357 [facility] x10(3)/[facility] LABORATORY RDWSD 43.0 36.0 - [place] 45.0 [facility] LABORATORY RDWCV 12.3 11.4 - [place] 13.8 % [facility] LABORATORY MPV 9.4 7.6 - 12.9 [facility] nRBC % Auto 0.0 % [facility] LABORATORY nRBC Abs Auto 0.000 0.000 - Phonitive - [facility] 0.000 [facility] x10(3)/[facility] LABORATORY Specimen Anatomical Collection Method Collection Time Receive d Time (Source) Location / / Volume Laterality Blood specimen 01/14/2020 8:08 AM 8:11 (specimen) EST AM EST Resulting Agency Comment Spec In Lab Nikolas Persaud MD HEMATOLOGY ORDERABLES Performing Organization Address City/State/[place] [address] documented in this encounter Visit Diagnoses Diagnosis 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
--- OUTSIDE RECORDS SUMMARY | 2022-07-03 09:02 | XMS_ITS | Encounter Summary ---
:1975 Author Organization [facility] Address [facility] [place] [address] Care Team Providers Name Role Phone Ryne Harris MD Primary Care Provider Encounter Details Date Type Department Care Team Description 07/08/2019 Orders Only Neurology at [facility] [place] Dejon Dey MD [facility] [place] [address] NEUROLOGY DEPT [phone] [place], [place] [address] (Wo rk) Social History Tobacco [...] on filedocumented in this encounter Care Teams Professor Of Astronomy Relationship Specialty Start Date End Date Ryne Harris MD PCP - General 10/23/10 [address] [place] [address] documented as of this encounter
--- OUTSIDE RECORDS SUMMARY | 2022-07-03 09:02 | XMS_ITS ---
:1975 Author Care Team Providers Name Role Phone DR. SHANICE RIVERA Primary Care Provider [phone] DR. SHANICE RIVERA Referring Provider [phone] Allergies Code Code System Name Reaction Severity Status Onset 1191 RxNorm Aspirin ? ? Active ? 43986 RxNorm Lisinopril ? ? Active ? Toradol ? ? Active ? Notes: Shortness of breath Medications Name Status Start Date Stop Date ? ? Aleve 220 mg tablet Active ? Not availabl e Take 2 tablets every 12 hours by oral route as needed. amlodipine 10 mg tablet Active ? Not avai lable Take 1 tablet every day by oral route. aspirin 81 mg tablet,delayed release Active ? Not available Take 1 tablet every day by oral route. cephalexin 500 mg capsule Active ? Not av ailable Take 1 capsule 3 times a day by oral route with meals for 7 day s. hydroxyzine HCl 25 mg tablet Active ? Not available Take 1 tablet every day by oral route as needed. ibuprofen 800 mg tablet Active ? Not avai lable Take 1 tablet 3 times a day by oral route with meals. d/c if gi upset omeprazole 40 mg capsule,delayed release Active ? Not available Take 1 capsule every day by oral route. Problems Name Status Onset Date Source ? Fracture of Humerus Active 03/31/2002 ? Malignant Tumor of Thyroid Gland Active 08/20/2016 ? Hypothyroidism Active 08/20/2016 ? Tobacco User Active 08/20/2016 ? Hearing Loss Active 08/20/2016 ? Constipation Active 08/20/2016 ? Ankle Joint Pain Active 08/20/2016 ? Chronic Back Pain Active 08/20/2016 ? Heel Pain Active 08/20/2016 ? Ingrowing Nail of Toe of Right Foot Active 01/31/2022 ? Ingrowing Nail of Toe of Left Foot Active 01/31/2022 ? Paronychia of Toe of Left Foot Active 01/31/2022 ? Pain of Toe of Right Foot Active 01/31/2022 ? Pain of Toe of Left Foot Active 01/31/2022 ? Procedures Date Name Performed by ? ? Hand Surgery Information not laura jane Notes: partial thyroidectomy Results Lab Results None recorded. Past Encounters 03/13/2022 Pain of Toe of Left Foot; Paronychia of Toe of Left Foot Yong Huffman, DPM: [address] [place] [phone], Ph. 02/13/2022 Ingrowing Nail of Toe of Right Foot; Ing rowing Nail of Toe of Left Foot; Paronychia of Toe of Left Foot; Pain of Toe of Left Foot; Pain of Toe of Right Foot Yong Huffman, DPM: [address] [place] [phone], Ph. 01/31/2022 Ingrowing Nail of Toe of Right Foot; Ing rowing Nail of Toe of Left Foot; Paronychia of Toe of Left Foot; Pain of Toe of Left Foot; Pain of Toe of Right Foot Yong Huffman, DPM: [address] [place] [phone], Ph. Social History Tobacco Smoking Status Current Some Day Smoker Notes: 08/31 07/16 Vaccine List None recorded. Plan of Care Reminders Provider Appointments None recorded. ? ? Lab None recorded. ? ? Referral None recorded. ? ? Procedures None recorded. ? ? Surgeries None recorded. ? ? Imaging None recorded. ? ? Vitals 03/13/2022 04:30PM FOLLOW UP Height Weight BMI 177.8 cm 122.47 kg 38.7 kg/m2 01/31/2022 02:00PM NEW PATIENT Height Weight BMI 177.8 cm 122.47 kg 38.7 kg/m2 09/17/2016 09:45AM FOLLOW UP Weight Blood Pressure 108.86 kg 120/68 mm[Hg] 08/19/2016 02:30PM NEW PATIENT Weight Blood Pressure 107.05 kg 138/66 mm[Hg]
--- OUTSIDE RECORDS SUMMARY | 2022-07-03 09:02 | XMS_ITS | Encounter Summary ---
:1975 Author Organization [facility] [place] [address] Care Team Providers Name Role Phone Ryne Harris MD Primary Care Provider Reason for Referral Consultation (Routine) - Closed Specialty Diagnoses / Procedures Referred By Contact Refer red To Contact Endocrinology Diagnoses Left thyroid nodule Serenity Arzate [place] [facility] [address] [place] [address] [place] [address] Fax: Referral ID Status Reason Start Date Expiration Date Visits V isits Requested Authorized [id number] Closed Consult, Test 01/11/2022 01/11/2023 12 12 & Treat PCP Updated and/or Approved Encounter Details Date Type Department Care Team Description 01/16/2022 Transcribe Orders Endocrinology at [facility] Adelaida Arzate, Left thyroid nodule [facility] MD [address] [place] [address] [place], [place] [phone] [id number] Social History Tobacco Use Types Packs/Day Years [...] as of this encounter Plan of Treatment Scheduled Referrals Name Type Priority Associated Order Schedule Diagnoses Referral to Outpatient Referral Routine Left thyroid nodule O rdered: Endocrinology 01/16/2022 documented as of this encounter Visit Diagnoses Diagnosis Left thyroid nodule Nontoxic uninodular goiter documented in this encounter Care Teams Director Clinical Applications Relationship Specialty Start Date End Date Ryne Harris MD PCP - General 10/23/10 [address] [place] [address] documented as of this encounter
--- OUTSIDE RECORDS SUMMARY | 2022-07-03 09:02 | XMS_ITS | Encounter Summary ---
:1975 Author Organization [facility] [place] [address] Care Team Providers Name Role Phone Ryne Harris MD Primary Care Provider Encounter Details Date Type Department Care Team Description 08/24/2019 Office Visit Neurology at [facility] Bear Almeida MD [facility] [place] [address] Chronic migraine [facility] Dejon Dey MD [facility] [place] [address] status migrainosus, [place], [place] not intractable [id number] Social History Tobacco Use Types Packs/Day Years Used Date Former Smoker Cigarettes 20 Quit: 11/26/20 18 Smokeless Tobacco: Never [...] Sign Reading Time Taken Comments Blood Pressure 128/82 08/24/2019 3:19 PM EDT Pulse 80 08/24/2019 3:19 PM EDT Temperature - - Respiratory Rate - - Oxygen Saturation - - Inhaled Oxygen Concentration - - Weight 110.2 kg (243 lb) 08/24/2019 3:19 PM EDT Height 177.8 cm (5' 10) 08/24/2019 3:19 PM EDT Body Mass Index 34.87 08/24/2019 3:19 PM EDT documented in this encounter Progress Notes Dejon Dey MD - 08/24/2019 3:30 PM EDT Neurology Outpatient Clinic - 08/26/2019 Patient name: Jaswant Nice Date of : 1975 PCP: Ryne Harris MD Clinic Attending: Dr. Bear Almeida CC: 3 month headache follow up Patient ID: Jaswant Nice??is a 43 y.o.??left??handed male??with a PMH of migraines??(as a teenager), s/p lumbar fusion (L5-S1), HTN who was Hospitalized with [facility] neurology service on 03/13/2019 until 03/18/2019. [facility] of new onset severe headache and lef t-sided weakness. CT head unremarkable. 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 MRI not completed because of spinal nerve stimulator. Lumbar puncture showed normal routine studies. EEG was unremarkable. During hospitalization his headaches would correlate with blood pressure spikes, anxiety, diaphoresis and for this reason pheochromocytoma was ruled out with 24-hour urine catecholamines, metanephrines and serum catecholamines metanephrines. He was discharged onamlodipine 10 mg and lisinopril 10 mg. He underwent coiling stent-warehouse assistant coil embolization of ACOM ??aneurysm on 04/15/19 and pipeline flow diverter placement on 04/19 for his right vertebral artery aneurysm and was discharged on ASA and Brilinta. ?? Interval Hx: - Since I last saw Jaswant his Headaches have gone away! - His headaches resolved within 1 week of the occipital nerve blocks - He weaned of tylenol and has not started amitriptyline because the Has resolved - Has not needed hydroxyzine either - MRI completed prior to appointment - Blood pressure well controlled at home - Minimal stress - No episodes of left sided weakness - Did not start PT because he felt much better Hospital Course from Discharge summary of 03/13-03/18/19 Jaswant Nice is a 43 y.o.??left??handed male??with a PMH of migraines??(as a teenager), s/p lumbar fusion (L5-S1),who presented as a transfer from [facility] to the neurology services for further evaluation new onset severe headache and left sided weakness. By time of admission, headache was a 3-4/10 and left sided symptoms had mostly resolved. He initially came as a stroke alert, but NIHSS was 0 and reviewof imaging from [facility] was not concerning. ?? Bedside LP was attempted but unsuccessful; LP under fluoro was done on 03/13 and CSF results were unrevealing, including negative xanthochromia and normal WBC, protein, glucose. MRI brain was ordered but not possible due to spinal cord stimulator; a repeat CT Head was done instead and unremarkable. EEGdid not show any epileptic activity. ?? During the admission, the patient had episodes of hypertension which likely contributed to headache.It is difficult to determine if his EGAN is causing the increased blood pressure or vice versa. ??In addition patient does seem to have several life stressors that are likely contributing to his worsening EGAN's. With his presentation of blood pressure spikes, diaphoresis and severe headache we completed work up for pheochromocytoma including 24hr urine collection is in process. His blood pressure regimen was modified - amlodipine 10 mg and lisinopril 10 mg were added. BP ??was then under better control, such that he was not requiring any prn medications for over 24 hours. ?? Headaches were treated with fluids, IV magnesium, naproxen with good relief. ?? Past Medical & Surgical History: Patient Active Problem List Diagnosis ??? Vertebral artery aneurysm ??? Brain aneurysm ??? Aneurysm of artery ??? Aneurysm of vertebral artery ??? Intracranial aneurysm ??? Headache Past Medical History: Diagnosis Date ??? 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 Headache 03/13/2019 ??? Intracranial aneurysm 03/24/2019 Past Surgical History: Procedure Laterality Date ??? IR ARTERIOGRAM CEREBRAL 03/25/2019 IR Arteriogram Cerebral 03/25/2019 Nikolas Persaud MD [facility] RAD ??? IR EMBOLIZATION INTRACRANIAL 04/12/2019 IR Embolization Intracranial 04/12/2019 Nikolas Persaud MD [facility] RAD ??? IR EMBOLIZATION INTRACRANIAL 04/19/2019 IR Embolization Intracranial 04/19/2019 Nikolas Persaud MD [facility] RAD ??? PRO PERM OCCLUSION/EMBOLIZATION, PERCUT, SCHOOL CLERK N/A 04/12/2019 @TRANSCATHETER OCCLUSION/EMBOLIZATION FOR TUMOR DESTRUCTION performed by Nikolas Persaud MD at [facility] [place] ??? PRO PERM OCCLUSION/EMBOLIZATION, PERCUT, SCHOOL CLERK N/A 04/19/2019 @TRANSCATHETER OCCLUSION/EMBOLIZATION FOR TUMOR DESTRUCTION performed by Nikolas Persaud MD at [facility] [place] ??? XR FLUORO GUIDED LUMBAR PUNCTURE N/A 03/13/2019 XR Fluoro Lumbar Puncture 03/13/2019 [facility] RAD XRAY Medications: Current Outpatient Medications on File Prior to Visit Medication Sig Dispense Refill ??? aspirin 81 mg Tablet, Chewable Take 162 mg by mouth daily. 30 tablet 0 ??? amLODIPine (NORVASC) 10 mg Tablet Take [...] 60 tablet 3 ??? Miscellaneous Medical Supply [facility] [place] cuff - one 1 each 0 ??? amitriptyline (ELAVIL) 10 mg Tablet Take 1 tablet by mouth nightly. (Patient not taking: Reported on 05/20/2019) 60 tablet 3 ??? acetaminophen (TYLENOL) 325 mg Tablet Take 650 mg by mouth every 4 hours as needed for Pain. No current facility-administered medications on file prior to visit. Allergy: Allergies Allergen Reactions ??? Toradol [Ketorolac] Shortness Of Breath Family History: History reviewed. No pertinent family history. Social History: Social History Socioeconomic History ??? Marital status: Single Spouse name: Not on file ??? Number of children: Not on file ??? Years of education: Not on file ??? Highest education level: Not on file Occupational History ??? Not on file Social Needs ??? Financial resource strain: Not on file ??? Food insecurity: Worry: Not on file Inability: Not on file ??? Transportation needs: Medical: Not on file Non-medical: Not on file Tobacco Use ??? Smoking status: Former Smoker Packs/day: 1.00 Years: 20.00 Pack years: 20.00 Types: Cigarettes Last attempt to quit: 11/26/2018 Years since quittin.7 ??? Smokeless tobacco: Never Used Substance and Sexual Activity ??? Alcohol use: Yes Frequency: Never Comment: Very rare ??? Drug use: Yes Types: Marijuana ??? Sexual activity: Not on file Lifestyle ??? Physical activity: Days per week: Not on file Minutes per session: Not on file ??? Stress: Not on file Relationships ??? Social connections: Talks on phone: Not on file Gets together: Not on file Attends denominational service: Not on file Active member of club or organization: Not on file Attends meetings of clubs or organizations: Not on file Relationship status: Not on file ??? Intimate partner violence: Fear of current or ex partner: Not on file Emotionally abused: Not on file Physically abused: Not on file Forced sexual activity: Not on file Other Topics Concern ??? Not on file Social History Narrative ??? Not on file Review of systems: No chest pain, SOB, Abdominal pain [x] Review of systems otherwise negative Physical Exam: Vitals: Temp: -- Heart Rate: -- Resp: -- BP: -- SpO2: -- Heart Rate from SpO2: -- Gen: Apparent stated age, well nourished, well developed, awake, alert, NAD Neck: Supple, no meningismus, no carotid bruit, no occipital tenderness HEENT: MMM CV: S1, S2, RRR, no murmur apreciated Resp: Normal respiratory effort, CTAB Abd: +normoactive bowel sounds, soft, nontender, nondistended Ext: No edema. No bony deformity Skin: No suspicious rashes or lesions Neuro Exam: MS: Awake, alert, oriented to person, place, year, month No dysarthria, language fluent, cooperative with neuro exam CN: Pupils 4mm ERRL, no RAPD EOMI, visual jacobson full to confrontation Facial sensation intact to light touch, temperature No facial asymmetry Hearing intact to voice Palate elevates symmetrically, tongue protrudes midline SCM and trap strength intact Motor: Normal bulk and tone. No pronator drift. Hand rolling intact. UE: 5/5 R, 5/5 L Arm abduction at shoulder 5/5 R, 5/5 L Elbow extension 5/5 R, 5/5 L Elbow flexion 5/5 R, 5/5 L [employer] Sales Representative LE: 5/5 R, 5/5 L Hip flexion 5/5 R, 5/5 L Knee extension 5/5 R, 5/5 L Knee flexion 5/5 R, 5/5 L Foot dorsiflexion 5/5 R, 5/5 L Foot plantar flexion Sensation: Intact to light touch Reflexes: DTRs 1+ R, 1+ L Biceps 1+ R, 1+ L Brachioradialis 1+ R, 1+ L Triceps 2+ R, 2+ L Patellar 0 R, 1+ L Achilles tendon Toes Not tested Coordination: Finger to nose intact, no dysmetria Gait: Normal stride, stance, armswing. Stable. Labs: No results found for this or any previous visit (from the past 24 hour(s)). Diagnostic Tests and Imaging: MRI brain 08/24/2019 FINDINGS: No acute infarction, mass, mass effect. Ventricles and extra axial spaces are normal. Major intracranial flow voids are normal. Parenchymal signal is normal. Calvarium and extra calvarial soft tissues are unremarkable. ?? IMPRESSION Normal exam Assessment / Plan: Jaswant A Nice??is a 43 y.o.??left??handed male??with a PMH of migraines??(as a teenager), lumbar fusion (L5-S1), HTN ACOM and R [facility] aneurysm (s/p coiling and diversion 04/18) who [facility] until 03/18/2019. [facility] and [facility]-sided weakness. 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 MRI not completed because of spinal nerve stimulator.Lumbar puncture and EEG were unremarkable. EGAN's correlated with BP spikes and thus pheochromocytoma was also ruled out. He was discharged on amlodipine 10 mg and lisinopril 10 mg. He underwent coiling stent-warehouse assistant coil embolization of ACOM ??aneurysm on 04/15/19 and pipeline flow diverter placement on 04/19 for his right vertebral artery aneurysm and was discharged on ASA and Brilinta. I last saw Jaswant on 05/19/19. We made several changes and performed an ONB for severe occipital tenderness. Today he reports being headache free since having the procedure performed! He did not start migraine ppx and weaned of they tylenol without issue. He also had his emigdio MRI to complete his hospital workup. Reassuringly he did not have evidence of stroke which we were concerned about when he presented with left sided weakness. Now that Jaswant is EGAN free and his stroke workup is complete he can follow up with Neurology on a PRN basis. If his migraines return he can resume his previous plan of hydroxyzine and tylenol for abortive therapy and start amitriptyline 10mg nightly for migraine PPX (he can reach out to us or his PCP). If he develops a significant occipital component, he can call to schedule an occipital nerve block with me as a procedure visit. ?? #Chronic migraine without aura with cervicogenic component #Medication overuse headache - If headaches return he can restart hydroxyzine and tylenol PRN for abortive therapy - He can call us or PCP to start amitriptyline for migraine PPX (10mg nightly) - He can call to schedule urgent procedure visits for occipital nerve blocks Follow Up: PRN Case discussed with Dr. Bear Dey MD Neurology Resident, PGY3 [facility] NEUROLOGY 08/26/2019 I did not personally see this patient but discussed him with Dr. Dye. The assessment and plan were formulated in discussion with me at the time of the visit and I agree with them as documented. Bear Almeida MD 08/27/2019 Club Attendant General Neurology and Clinical Neurophysiology [facility] Department of Neurology documented in this encounter Plan of Treatment Not on filedocumented as of this encounter Visit Diagnoses Diagnosis Chronic migraine without aura without st atus migrainosus, not intractable Chronic migraine without aura, without m ention of intractable migraine without mention of status migrainosus documented in this encounter Care Teams Speech Language Specialist Relationship Specialty Start Date End Date Ryne Harris MD PCP - General 10/23/10 [address] [place] [address] documented as of this encounter
--- OUTSIDE RECORDS SUMMARY | 2022-07-03 09:02 | XMS_ITS | Clinical Summary ---
:1975 Author Organization [facility] [place] [address] Care Team Providers Name Role Phone Ryne Harris MD Primary Care Provider Allergies Active Allergy Reactions Severity Noted Date Comments Ketorolac Shortness Of Breath High 03/25/2019 Medications Medication Sig Dispensed Refills Start Date End Date Status amLODIPine (NORVASC) 10 Take 1 tablet by 90 tablet 3 9 Active mg Tablet mouth daily. hydrOXYzine (ATARAX) 25 Take 1 tablet by 30 tablet 12 9 Active mg Tablet mouth daily as needed (headaches). lisinopril Take 1 tablet by 90 tablet 3 03/19/2019 A ctive (PRINIVIL;ZESTRIL) 10 mouth daily. mg Tablet melatonin 3 mg Tablet Take 2 tablets by 60 tablet 3 03/18/2019 Active mouth nightly. Miscellaneous Medical Blood pressure 1 each 0 03/18/2019 Active Supply Misc cuff - one acetaminophen (TYLENOL) Take 650 mg by 0 Active 325 mg Tablet mouth every 4 hours as needed for Pain. aspirin 81 mg Tablet, Take 162 mg by 30 tablet 0 04/21/2019 Active Chewable mouth daily. ticagrelor (BRILINTA) Take 1 tablet by 60 tablet 3 08/25/2019 Active 90 mg mouth 2 times TabletIndications: daily. Aneurysm of vertebral artery Active Problems Problem Noted Date Vertebral artery aneurysm 04/19/2019 Brain aneurysm 04/14/2019 Aneurysm of artery 04/12/2019 Aneurysm of vertebral artery 03/24/2019 Intracranial aneurysm 03/24/2019 Headache 03/13/2019 Immunizations Name Administration Dates Next Due Influenza Vaccine, Whole 10/06/2007 Social History Tobacco Use Types Packs/Day Years [...] Assigned at Date Recorded Not on file Last Filed Vital Signs Vital Sign Reading Time Taken Comments Blood Pressure 146/76 01/14/2020 1:45 PM EST Pulse 70 01/14/2020 11:00 AM EST Temperature 37.1 ??C (98.7 ??F) 01/14/2020 11:11 AM EST Respiratory Rate 18 01/14/2020 1:45 PM EST Oxygen Saturation 97% 01/14/2020 1:45 PM EST Inhaled Oxygen Concentration - - Weight 110.2 kg (243 lb) 08/24/2019 3:19 PM EDT Height 177.8 cm (5' 10) 08/24/2019 3:19 PM EDT Body Mass Index 34.87 08/24/2019 3:19 PM EDT Plan of Treatment Health Maintenance Due Date Last Done Comments Covid-19 Vaccine (#1) 1981 HIV screen 1994 Hepatitis C Screening 1994 Tdap adult 1995 Tetanus vaccine 1995 Colonoscopy 2021 Diabetes Screening (HgbA1C or 03/26/2022 03/26/2019, 2018, Glucose) 03/24/2019, Additional history exists Influenza (Flu) vaccine (1 of 1 - 08/01/2022 10/06/2007 Influenza standard series) Lipid Screening 03/13/2024 03/13/2019 Medical Devices Implanted Type Area Medical Support Specialist Device Shelf Model / Identifier Expiration Date Ser ial / Lot Anneliese Spinal Stimulator IMPLANTS Pelvis SPF?? -XL IIB 2/DM / Implanted: 09/09/2007 by Jose Drew MD (Quantity not on file) [id number] / [id number] Description: When MRI is performed @ [facility], the above ANNELIESE stimulator is MR Conditional up to 1.5 Luz Maria, when the following conditions are met: MRI-SpF PLUS-Mini and SpF-XL IIb Models. Experiments conducted to assess magnetic field interactions, artifacts, and operational aspects of the implantable spinal fusion stimulators combined with experience in patients indicate that MR procedures may be performed safely in [facility] under the following conditions: MR static magnetic field of 1.5 Luz Maria or less. Maximum spatial gradient 250 gauss/cm for the SpF PLUS-Mini model and maximum spatial gradient 450 gauss/cm for the SpF-XL IIb model. Gradient magnetic fie lds of 20 Luz Maria/second or less. Maximum whole body averaged Specific Absorption Rate (NATALY) of 1.1 W/kg for 25 minutes of imaging. The effects of MRI procedures [facility] MR systems and conditions above thes e levels have not been determined. MRI procedures must only be performed according to the following guidelines: Plain films (radiographs) must be obtained to asse ss the site of the implanted SpF prior t o the MRI examination to verify that there are no broken leads present. If this cannot be reliably determined, then the potential risks and benefits to the patient requiring the MRI examination must be carefully assessed in consideration of the possibi lity of excessive heating to develop in the leads. The patient must be continuously observed during the MRI procedure and instructed to report any unusual sensati ons including any feelings of warming, b urning, or neuromuscular excitation or stimulation. If these occur, the MRI procedure must be discontinued. Samanta FERRARO, [place], [facility] [place], MRI Safety Technologist 04/13/2019 Coil,Trgt,Ult,360,[id number] ([id number])-04/12/2019 IMPLANTS Arterial DELBERT 08/30/2019 [id number] / Implanted: Qty: 1 on 04/12/2019 by Nikolas Persaud MD [facility] - / DELBERT [id number] Description: ACOM ANEURYSM [employer] [place] [id number] Stent Left: Arterial 07/21/2023 [id number] / Implanted: Qty: 1 on 04/12/2019 by Nikolas Persaud MD / [id number] Description: left JUAN CARLOS- [employer] [place] s tent Stent-04/19/2019 Stent Right: Brain 04/07/2021 [id number] / Implanted: Qty: 1 on 04/19/2019 by Nikolas Persaud MD / [id number] Description: PIPELINE Insurance Payer Benefit Plan / Subscriber ID Effective Dates Phone Addre ss Type Group CIGNA CIGNA POS OPEN [id number] 2018-Present [phone] [address] [facility] [place] [address] Advance Directives Documents on File Type Date Recorded Patient Regional Agronomist Explanati on Personal Regional Agronomist 04/13/2019 3:26 PM maria isabel hunt Latest Code Status on File Code Status Date Activated Date Inactivated Comments Full Code 01/14/2020 9:25 AM 01/15/2020 4:34 AM Does patient have capacity to make decision: Yes Full Code 04/19/2019 12:17 PM 04/21/2019 4:56 PM Does patient have capacity to make decision: Yes Full Code 04/19/2019 7:05 AM 04/19/2019 12:17 PM Does patient have capacity to make decision: Yes Full Code 04/12/2019 7:40 PM 04/14/2019 3:16 PM Does patient have capacity to make decision: Yes Full Code 04/12/2019 12:58 PM 04/12/2019 7:40 PM Does patient have capacity to make decision: Yes Care Teams Director Of User Experience Relationship Specialty Start Date End Date Ryne Harris MD PCP - General 10/23/10 [address] [place] [address]
--- OUTSIDE RECORDS SUMMARY | 2022-07-03 09:02 | XMS_ITS | Encounter Summary ---
:1975 Author Organization [facility] [place] [address] Care Team Providers Name Role Phone Ryne Harris MD Primary Care Provider Encounter Details Date Type Department Care Team Description 08/26/2019 Telephone Neurosurgery at [facility] [place] [address] Social History Tobacco Use Types Packs/Day [...] this encounter Miscellaneous Notes Telephone Encounter - Sylvia Lewis - 12/30/2019 12:19 PM EST Called pt and scheduled angiogram per Larisa. Pt scheduled for 01/14, mailed appt letter. Telephone Encounter - Sylvia Lewis - 08/30/2019 12:36 PM EDT No answering machine, mailed letter to have pt called to schedule, MRA and angiogram. Telephone Encounter - Sylvia Lewis - 08/26/2019 2:19 PM EDT *RN please put in orders for MRA and Diagnostic angiogram Nikolas Persaud MD Sent: FriJune 01, 2019 ??8:20 AM To: Sylvia Lewis Jose Nice Jaswant Hood ( ) : 1975> ?? Follow-up and Dispositions Check-out Note: 1) Follow-up in 4-6 months with MRA brain 2) Plan for DSA at 6-months Telephone Encounter - Sylvia Lewis - 08/26/2019 2:19 PM EDT Nikolas Persaud MD Sent: FriJune 01, 2019 ??8:20 AM To: Joshua Sylvia Jose Arlet Jaswant Erwin ( ) : 1975> ?? Follow-up and Dispositions Check-out Note: 1) Follow-up in 4-6 months with MRA brain 2) Plan for DSA at 6-months documented in this encounter Plan of Treatment Not on filedocumented as of this encounter Visit Diagnoses Not on filedocumented in this encounter Care Teams Plumbing Inspector Relationship Specialty Start Date End Date Ryne Harris MD PCP - General 10/23/10 [address] [place] [address] documented as of this encounter
--- OUTSIDE RECORDS SUMMARY | 2022-07-03 09:03 | XMS_ITS | Encounter Summary ---
:1975 Author Organization [facility] [place] [address] Care Team Providers Name Role Phone Ryne Harris MD Primary Care Provider Reason for Visit Reason Comments Follow Up Surgery Encounter Details Date Type Department Care Team Description 04/16/2019 Office Visit Otolaryngology at [facility] Adelina, Harinder Shaver, Epistaxis [facility] [place] [address] [facility] [phone] [place], [place] [address] (Wo rk) Social History Tobacco Use Types Packs/Day Years Used Date Former Smoker Cigarettes 1 20 Smokeless Tobacco: Never Used Alcohol Use Standard Drinks/Week Comments Not Currently 0 (1 standard drink = 0.6 oz pure alcoho l) Alcohol Habits Answer Date Recorded How often do you have a drink containing alcohol? Never 05/19/2019 How many drinks containing alcohol do you have on a typical Not asked day when you are drinking? How often do you have six or more drinks on one occasion? No t asked Comment: Not asked Sex Assigned at Date Recorded Not on file documented as of this encounter Last Filed Vital Signs Vital Sign Reading Time Taken Comments Blood Pressure - - Pulse - - Temperature - - Respiratory Rate - - Oxygen Saturation - - Inhaled Oxygen Concentration - - Weight 112 kg (247 lb) 04/16/2019 3:21 PM EDT Height 177.8 cm (5' 10) 04/16/2019 3:21 PM EDT Body Mass Index 35.44 04/16/2019 3:21 PM EDT documented in this encounter Progress Notes Harinder Sahu MD - 04/16/2019 3:45 PM EDT Interval History: Patient was seen in follow-up after placement of a Rhino Rocket in the left nare on 04/12/19 while in IR undergoing an intervention for a known cerebral aneurysm. His right nare was also packed with surgifoam at that time. Patient reports that he still on Brilinta. He has had no further drainage from his left or right nasal cavities. Any drainage that he had had become clear and was predominantly left-sided. He has been compliant with his prescribed antibiotic. The left-sided Rhino Rocket was removed in clinic with no observed epistaxis. Exam: General - NAD Nose - no visible bleeding in bilateral nasal cavities after removal of the packing, no residual clot, no prominent vessels visible Oral - no blood in oropharynx CV - unlabored respirations Assessment: 43 yo with epistaxis while undergoing an IR procedure for cerebral aneurysm. His epistaxis has now resolved with no prominent vessel visible for cauterization. He can now stop the prescribed Augmentin. He was instructed to use afrin and apply pressure for 15 minutes should his epistaxis return. He can follow-up with ENT as needed. documented in this encounter Plan of Treatment Not on filedocumented as of this encounter Visit Diagnoses Diagnosis Epistaxis documented in this encounter Care Teams Yarn Sorter Relationship Specialty Start Date End Date Ryne Harris MD PCP - General 10/23/10 [address] [place] [address] documented as of this encounter
--- OUTSIDE RECORDS SUMMARY | 2022-07-03 09:03 | XMS_ITS | Encounter Summary ---
:1975 Author Organization [facility] [place] [address] Care Team Providers Name Role Phone Ryne Harris MD Primary Care Provider Reason for Visit Auth/Cert Specialty Diagnoses / Procedures Referred By Contact Refer red To Contact Diagnoses communicating artery aneurysm Procedures PRO PERM OCCLUSION/EMBOLIZATION, PERCUT, DIGESTION OPERATOR @TRANSCATHETER OCCLUSION/EMBOLIZATION FOR TUMOR DESTRUCTION Referral ID Status Reason Start Date Expiration Date Visits Requ ested Visits Authorized [id number] 1 1 Encounter Details Date Type Department Care Team Description 04/19/2019 - Hospital Encounter Neuroscience Special Hung, Hardeep, Pseudoaneurysm 04/21/2019 Care Unit Lola NIÑO [facility] [id number] [phone] Social History Tobacco Use Types Packs/Day Years [...] Sign Reading Time Taken Comments Blood Pressure 153/94 04/21/2019 12:10 PM EDT Pulse 81 04/20/2019 11:00 PM EDT Temperature 37.1 ??C (98.8 ??F) 04/21/2019 12:09 PM EDT Respiratory Rate 16 04/21/2019 12:09 PM EDT Oxygen Saturation 97% 04/21/2019 12:10 PM EDT Inhaled Oxygen Concentration - - Weight 113.4 kg (250 lb) 04/19/2019 4:03 PM EDT Height 177.8 cm (5' 10) 04/19/2019 4:03 PM EDT Body Mass Index 35.87 04/19/2019 4:03 PM EDT documented in this encounter Discharge Summaries Jacque Rodriguez APRN - 04/21/2019 1:00 PM EDT Patient Name: Jaime Guzman Patient Age: 43 y.o. Admit date: 04/19/2019 Discharge Date and Time: 04/21/2019 Attending Physician: Hardeep Persaud MD Discharging Provider: Jacque Rodriguez APRN Discharging Service: NEUROSURGERY Operations/Major Procedures: Case Date: 04/19/2019 ?? Attending: Priscilla Persaud Resident/Fellow/Student: Elpidio ?? Post-operative diagnosis/Indication: Fusiform right vertebral artery aneurysm ?? Name of Procedure Performed: Pipeline flow-diverter placement Active Hospital Problems: Active Hospital Problems Diagnosis ??? Vertebral artery aneurysm Resolved Hospital Problems No resolved problems to display. Active Non Hospital Problems: Active Non-Hospital Problems Diagnosis ??? Brain aneurysm ??? Aneurysm of artery ??? Aneurysm of vertebral artery ??? Intracranial aneurysm ??? Headache History of Presentation: Per review of relevant records: Jaime Guzman is a 43 y.o. male male??with history of headaches and recently diagnosed aneurysms involving the right vertebral artery and ACOM. He underwent coiling stent-museum assistant coil embolization of ACOM aneurysm on 04/15/19. His procedure was complicated by epistaxis secondary to placement of a smallbore NG tube requiring placement of a rhino-rocket to tamponade the bleeding, he also had bilateral shoulder pain post-operatively which per the patient has improved back to his baseline. Patient was subsequently discharged with plans to return for pipeline placement. Hospital Course: Jaime Guzman patient presented as above. He was brought to the angio suite by Dr. Persaud for that aforementioned procedure. Care was taken to ensure patients shoulders were positioned in such a way thathe did not experience post-operative spasm/pain again. Patient tolerated the procedure well. Patientwas recovered per protocol without event. One the evening of the procedure patient experienced acuteRIGHT inguinal groin pain. He underwent a CTA of his abdomen and pelvis which indicated a possible pseudoaneurysm. Patient then underwent vascular studies that revealed no evidence of a pseudoaneurysm,arteriovenous fistula or hematoma. Patient had no further groin pain. Patient remained neurologically stable throughout his admission. On the day of discharge patient wasambulating independently at his baseline, eating and tolerating a regular diet and voiding spontaneously. Patient will be discharge on Brilenta and ASA. Important Studies and Lab Data: Labs: Lab Results Component Value Date/Time WBC 15.9 (H) 04/20/2019 06:54 AM HGB 11.7 (L) 04/20/2019 06:54 AM HCT 33.8 (L) 04/20/2019 06:54 AM PLATELET 275 04/20/2019 06:54 AM NA 141 03/26/2019 12:15 AM K 3.6 03/26/2019 12:15 AM CL 106 03/26/2019 12:15 AM CO2 25 03/26/2019 12:15 AM BUN 12 03/26/2019 12:15 AM CREATININE 0.64 (L) 03/26/2019 12:15 AM Studies: CT Angiogram Abdomen & Pelvis Wwo Contrast Result Date: 04/20/2019 EXAMINATION: CT ANGIOGRAM ABDOMEN AND PELVIS WWO CONTRAST CLINICAL HISTORY: acute pain to RLE with ambulation s/p femoral access for NeuroIR procedure today TECHNIQUE: Helical CT angiogram of the abdomen and pelvis was performed before and after the intravenous administration of contrast. Bgypdrevmpxs682.0 ml of OMNIPAQUE 350.00 mg/ml. MPRs were performed. Multiplanar images were reviewed and 3-D images were generated on an independent workstation. COMPARISON: None FINDINGS: VASCULAR FINDINGS Right: Common iliac artery: patent. External iliac artery: patent. Internal iliac artery: patent. Common femoral artery: patent. There is extravascular contrast anterior to the distal aspect of the common fem oral artery with surrounding hypodense material. Superficial femoral artery: The visualized aspects are patent. Profundus femoral artery: The visualized aspects are patent. Left: Common iliac artery: patent. External iliac artery: patent. Internal iliac artery: patent. Common femoral artery: patent. Superficial femoral artery: The visualized aspects are patent. Profundus femoral artery: The visualized aspects are patent. NON-VASCULAR FINDINGS Kidneys: The imaged portions of the bilateral kidneys arenormal in appearance. Urinary Bladder: A small amount of nondependent gas is present within the urinary bladder, which may be related to recent catheter removal. Lymph Nodes: Scattered inguinal and iliac nodes, right greater than left, are not pathologically enlarged. Bowel: No bowel wall thickening or dilatation within the imaged portions of the bowel. Peritoneum and mesentery: No ascites, free air,or loculated fluid collection. Osseous structures: No suspicious findings. Postoperative changes status post laminotomy at the S1 level and spinal stimulator placement overlying the S1 level. Extravascular contrast anterior to the distal aspect of the common femoral artery with surrounding hypodense material, consistent with a pseudoaneurysm. Recommend follow-up vascular ultrasound in the morning to evaluate if this has thrombosed. MRI Angiogram Head Wo Contrast Result Date: 04/21/2019 EXAMINATION: MRI ANGIOGRAM HEAD WO CONTRAST (GENERIC) CLINICAL HISTORY: Follow- up coil embolization ACOM aneurysm, R VA fusiform aneurysm TECHNIQUE: MRA of the head performed without contrast. 3-D MIP reconstructions were created. COMPARISON: CTA 03/13/2019, angiogram 04/12/2019, angiogram 04/19/2019 FINDINGS: Intracranial internal carotid arteries are normal in caliber. There is an infundibulum at the origin of the right ophthalmic artery. Artifact is present along the right A2 segment and left A1 ACAsegments related to the presence of a stent. The previously demonstrated ACOM region aneurysm is occluded by coil. No significant residual aneurysm is identified. The previously seen aneurysm along theintradural right vertebral artery does not demonstrate flow related enhancement, with some signal loss related to pipeline stent. No flow-related enhancement is identified within the aneurysm. Intradural vertebral arteries and basilar artery are otherwise normal. Posterior cerebral arteries are normal. 1. Coil occlusion of the ACOM aneurysm 2. No flow-related enhancement seen in the treated right vertebral artery aneurysm. IR Embolization Intracranial Result Date: 04/19/2019 [facility] CEREBRAL ANGIOGRAPHY NOTE ? PATIENT NAME: Jaime Guzman : 1975 ? CASE DATE:?04/12/2019 ? ATTENDING:?Hardeep Persaud MD? AEMT:? Jean Yanez MD; Brandyn Magallanes MD; Yong Quinn MD ?? 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 POSTOPERATIVE DIAGNOSIS: Same ? PROCEDURE: 1) Placement of intracranial stent (NeuroForm [place]) for treatment of wide-neck aneurysm 2) Coil embolization of unruptured ACOManeurysm 3) Femoral artery ultrasound for arterial access ?? ANESTHETIC: General ? INDICATIONS: This 43 y.o. male was found to have two intracranial aneurysms on workup for headaches. Given the patient's age, size and morphology of the aneurysms, and history of hypertension, the patient was presented the option of endovascular treatment of the aneurysms. He understood other management options, including continued observation as well as microsurgical clipping of the aneurysm. The risks and benefits of each appraoch were discussed. The patient elected to have his aneurysms endovascularly treated. He understood all risks and elected to proceed with the treatment. ? DESCRIPTION OF PROCEDURE: Thepatient was brought to the angiography suite and positioned on the angiography table. He was intubated by the anesthesia team. Bilateral femoral regions were prepped and then sterilely draped. A timeout was performed. Using ultrasound guidance, the right femoral artery was identified and??accessed with a micropuncture kit. ??A 6F NeuronMax guide sheath was then inserted without complication and connected to a constant heparinized drip. ?? The NeuronMax guide sheath was co-axially advanced into the left ICA over a 5F Usama catheter with a 0.035 Glidewire. An angiogram was next performed to get intracranial AP and lateral views. A 3-D rotational angiogram was next performed. 3-D post processing volume and surface rendering was performed with maximum intensity projections on a separate??workstation.The working views giving the best projection of the ACOM aneurysm were next obtained with high magnification fluorosocpy. The patient was given a weight-based bolus of heparin after obtaining a baseline ACT. ACT values were subsequently drawn by anesthesia to confirm full heparinization. ?? Using roadmap guidance, the 5Fr Jenny intermediate catheter was advanced towards the JUAN CARLOS origin over the SL-10 microcatheter. The microcatheter was next advanced into the left JUAN CARLOS and then into the contralateral A2 vessel over the Synchro-2 microwire. A hand-injected angiogram was performed to evaluate the aneurysm and the adjacent vasculature. The Neuroform [place] stent (3.0x24 mm) was next introduced into the microcatheter. The Neuroform stent was next deployed from the right A2 into the left A1 segment across the aneurysm neck. A subsequent angiogram confirmed good stent coverage of the aneurysm neck. Usingroadmap guidance, we attempted to advance the SL-10 microcatheter across the [place] stent into the aneurysm. Because of significant difficulty advancing the SL-10 microcatheter across the stent, we replaced the SL-10 microcatheter with a Headway Duo microcatheter. The Headway Duo catheter was successfully positioned over the Synchro-2 microwire into the aneurysm. After confirming stable positioning ofthe microcatheter in the aneurysm, we proceeded to deliver a Target 360 Ultra coil (4mm x 15cm) intothe aneurysm. A subsequent angiogram showed no coil herniation into the parent vessel or thrombus formation in the adjacency of the stent. We next introduced a series of Target 360 Cherelle coils into the aneurysm. There was good positioning of the coils within the aneurysm. At this point, we were satisfied with the extent of aneurysm coiling. We proceeded to remove the microcatheter from the aneurysm. Alow-magnification intracranial AP and lateral angiogram was performed from the cervical ICA after removal of the intermediate catheter. The guide catheter was next withdrawn to the level of the right external iliac artery. ?? A right external iliac arteriogram was performed. ??The puncture site was noted to be above the bifurcation and below the inferior epigastric vessel. ??The puncture site was then closed with the AngioSeal closure device. There was good hemostasis after deploying the closure device. There were no complications during the procedure. ??The patient was extubated at the end of the procedure and brought to the recovery room in stable condition. ?? FINDINGS:?? Left internal carotid artery angiogram: ??AP and lateral views show the intracranial ICA??segment and brisk filling of the MCA and JUAN CARLOS vessels. There is a wide-neck anterior communicating artery aneurysm projecting anteriorly and inferiorly with the largest dimension measuring 4.3 mm. ?? 3-D rotational angiogram from the left internal carotid artery showing the ACOM aneurysm noted above. There are no other vascular abnormalities noted on the 3-D reconstructions. ?? Left internal carotid artery angiogram (after stent placement): ??High magnification oblique views show proper positioning of the [place] stent across the neck of the aneurysm. There is no thrombus formation adjacent to the stent or contrast stagnancy in adjacent dispatch machine runner vessels. There is no contrast extravasation. ?? Left internal carotid artery angiogram (during coil embolization): ??High magnification oblique views show progressive occlusion of the aneurysm. There is no occlusion or thrombus formation in the adjacent vessels. There is delayed filling but no occlusion of the left ophthalmic artery. ?? Left internal carotid artery angiogram (post stent-assisted coil embolization): AP and lateral views show good embolization of the ACOM aneurysm. There is some filling of contrast within the base of the aneurysm. The intracranial vessels fill briskly without contrast stasis or thrombus formation. There is no evidence of contrast extravasation. ?? : 1) Successful intracranial deployment of [place] stent across the ACOM aneurysm from the right A2 toleft A1 JUAN CARLOS segment. 2) Successful coil embolization of ACOM aneurysm. ?? IR Arteriogram Cerebral Result Date: 04/20/2019 [facility] CEREBRAL ANGIOGRAPHY NOTE ? PATIENT NAME:?? Jaime Guzman :?? 1975 ?? CASE DATE:?? 03/25/2019 ? ATTENDING: Hardeep Persaud MD? ASSISTANTS: Jean Yanez MD; Yong Quinn MD PREOPERATIVE DIAGNOSIS: Intracranial aneurysms ? POSTOPERATIVE DIAGNOSIS: Same ?? PROCEDURE: Diagnostic cerebral angiography Femoral artery ultrasound for arterial access ??TECHNIQUE: Selective catheterization and Angiogram: Right internal carotid artery (AP, Lat, and Oblique views) Selective catheterization and Angiogram: Left internal carotid artery (AP, Lat, and Oblique views) Selective catheterization and Angiogram: Left vertebral artery (Ioana and Lat) Selective catheterization and Angiogram: Right vertebral artery (Ioana and Lat) 3D rotational angiogram from left ICA ?? ANESTHETIC Moderate sedation ?? INDICATIONS: This 43 y.o.??male??presented with headaches and workup showed two unruptured intracranial aneurysms. A diagnostic cerebral angiogram was offered toevaluate the aneurysms and plan treatment. Risks, benefits, and alternatives were discussed in detail. The patient understood all risks and agreed to proceed with the procedure. DESCRIPTION OF PROCEDURE: The patient was brought to the interventional radiology suite and positioned on the angiography table. Bilateral femoral regions were prepped and then sterilely draped. A timeout was performed. Usingultrasound guidance, the right femoral artery was identified and??accessed with a micropuncture kit.??A 5Fr sheath was then inserted without complication and connected to a constant heparinized drip. A right common femoral angiogram was performed at the end of the procedure showing the puncture site to be above the bifurcation. ? A 5Fr Usama diagnostic catheter was advanced into the sheath over a 0.035 Glidewire. ??The catheter was brought over the aortic arch and the right common carotid artery was selected. A roadmap was obtained and then the right internal carotid artery selected. An angiogram of the right ICA was performed to get intracranial AP, lateral, and magnified oblique views. The catheter was next pulled into the aortic arch and the left common carotid artery was selected. An angiogram was performed with biplane cranial views after selection of the left ICA. A 3-D rotational angiogram was next performed from this position. 3-D post processing volume and surface rendering was performed with maximum intensity projections on a separate??workstation. The working views giving thebest projection of the ACOM aneurysm were next obtained with high magnification fluorosocpy. The catheter was next withdrawn to the aortic arch and then navigated towards the left subclavian artery. The left vertebral artery was selected and biplane angiography was performed. The catheter was then removed and a 5Fr Vert diagnostic catheter was advanced into the aorta. The right vertebral artery was selected using roadmap guidance. An angiogram was performed with intracranial biplane views after injection of contrast in the right VA. ?? The diagnostic catheter was then completely withdrawn from the body. The puncture site was then closed with the Mynx closure device. There was good hemostasis afterdeploying the closure device. ? There were no complications during the procedure. ??The patient was hemodynamically stable and taken to the recovery room. ? FINDINGS: Right internal carotid artery angiogram: ??AP, lateral and magnified oblique views show the intracranial ICA??segment and branches to have a normal course and caliber. The MCA and JUAN CARLOS branches fill briskly. There is no early venous drainage. There is no abnormality in the late arterial phase or stagnancy of any intracranial vessels. There is no evidence of any AVMs, aneurysms, or AV fistulae. Left internal carotid artery angiogram: AP, lateral, and magnified oblique views of the intracranial ICA segment and its branches are of normal caliber and course. There is no early venous drainage. There is a wide-neck ACOM aneurysm witha maximum dimension of 4.8 mm. The aneurysm is projecting anteriorly and inferiorly. 3D rotational angiogram from the left ICA shows the aneurysm noted above. Left vertebral artery angiogram: AP and lateral views show normal arterial, capillary, and venous opacification. The left PICA and branches of the basilar artery fill normally. There is no evidence of any aneurysms, AVMs, or early venous drainage. Right vertebral artery angiogram: Ioana and lateral views show normal arterial, capillary, and venous opacification. There is a fusiform aneurysm just distal to the PICA in the intradural right vertebral artery. The branches of the basilar artery fill normally. ?? 1) Wide-neck ACOM aneurysm supplied preferentially by the left JUAN CARLOS 2) Fusiform- type right vertebral artery aneurysm ?? Pending Studies and Lab Data: None Discharge Condition: Stable Discharge to: Home Discharge Medications: Your Medications Continued medications with new dosing Dose Details aspirin 81 mg Chew Take 162 mg by mouth daily. What changed: how much to take 162 mg Quantity: 30 tablet Refills: 0 Continued medications, unchanged Dose Details acetaminophen 325 mg Tab Commonly known as: TYLENOL Take 650 mg by mouth every 4 hours as needed for Pain. 650 mg Refills: 0 amLODIPine 10 mg Tab Commonly known as: NORVASC Take 1 tablet by mouth daily. 10 mg Quantity: 90 tablet Refills: 3 hydrOXYzine 25 mg Tab Commonly known as: ATARAX Take 1 tablet by mouth daily as needed (headaches). 25 mg Quantity: 30 tablet Refills: 12 lisinopril 10 mg Tab Commonly known as: PRINIVIL;ZESTRIL Take 1 tablet by mouth daily. 10 mg Quantity: 90 tablet Refills: 3 melatonin 3 mg Tab Take 2 tablets by mouth nightly. 6 mg Quantity: 60 tablet Refills: 3 Miscellaneous Medical Supply Misc Blood pressure cuff - one Quantity: 1 each Refills: 0 ticagrelor 90 mg Tab Commonly known as: BRILINTA Take 1 tablet by mouth 2 times daily. 90 mg Quantity: 60 tablet Refills: 3 STOPPED Medications amoxicillin-clavulanate 875-125 mg Tab Commonly known as: AUGMENTIN dexamethasone 4 mg Tab Commonly known as: DECADRON methocarbamol 500 mg Tab Commonly known as: ROBAXIN oxyCODONE 5 mg Tab Commonly known as: ROXICODONE Updated Allergies/ADRs: Allergies Allergen Reactions ??? Toradol [Ketorolac] Shortness Of Breath SOB. Per patient. Follow-up Recommendations for Providers: Please have the patient follow-up with Neurosurgery clinic in 4 weeks. Incision: No incision. Imaging: No follow-up imaging needed. Outpatient referrals: N/A Instructions Given to Patient at Discharge: Patient Instructions ENDOVASCULAR TREATMENT OF UNRUPTURED INTRACRANIAL ANEURYSM DISCHARGE INSTRUCTIONS PRESCRIPTION INSTRUCTIONS: Please see the medication reconciliation list on this discharge summary for a current list of your medications. [x] Brilinta: Please take this medication following treatment of your aneurysm. Your doctor will tell you how long you need to be on this medication at your follow up appointment. [x] Aspirin: Please take an aspirin daily for lifelong. This is necessary due to the coils that are placed in your aneurysm. -Please contact us if you are having bruising, bleeding from gums or nose, or heartburn/stomach painwhile taking the blood thinners. WHEN TO SEEK MEDICAL CARE: Signs or symptoms of an infection - Fever over 101F - Redness, swelling, or increasing pain around your puncture site - Drainage of pus or blood from your puncture site Headaches - These can be very intense for a few days, and are partially related to the dye used during the procedure and will get better on their own. - For headaches that are not relieved with pain medications, progressively worsen, or are severe please call New neurologic symptoms - New unsteadiness when walking - New weakness or sensory changes to one side of your body - Slurred speech or difficulty speaking - Facial droop - Confusion - Seizure - Any other concerning neurologic symptom Symptoms of a deep venous thrombosis (DVT) or pulmonary embolism (PE): - Swelling/warmth/redness of the leg - Pain in the leg, which can be worse with standing or walking - Chest pain or shortness of breath To help prevent a DVT: - Exercise regularly. Walking, at least several times daily, is helpful. - Ankle pump exercises (like pressing and releasing the gas pedal) should be done regularly. - Keep hydrated with water or other clear liquids (coffee/tea/cola can dehydrate you). - Avoid alcohol and crossing your legs. - Remember not to sit or lay in bed, while awake, for prolonged amounts of time. WOUND CARE: - The puncture site at the top of your thigh has no sutures. No wound care is necessary. The puncture site at the top of your leg can be very tender for a week or two. Avoid soaking in the tub or swimming for 7 days after procedure. Call us if you develop a hard or expanding lump, or worsening pain. Bruising at the area and along your thigh happens frequently. DIET: - You may resume your usual diet. ACTIVITY: - You may increase your activities as tolerated. - Restrict strenuous activity (such as running, jumping, jogging, shoveling, heavy lifting, etc.) for at least 2 weeks. FOLLOW UP PLAN: [x] Please follow up in the Neurosurgery Clinic in 4 weeks . Please call the Neurosurgery Office at [phone] if you do not receive a scheduled appointment within two weeks. You will follow-up with: [x] Dr. Persaud [] Dr. Willis Imaging: [x] None [] CT: [] Head [] Neck [] CTA: [] Head [] Neck [] MRA: [] Head [] Neck HOW TO REACH NEUROSURGERY Office Hours: Friday through Friday, 8am-5pm. Call . On weekends or after office hours: Call [phone] and ask the digital pre press operator to page the NeurosurgeryResident collection analyst. IMPORTANT PHONE NUMBERS: Outpatient Nurse (Corine Salazar) Inpatient Nurses Neurosurgical Resident On-Call (after 5pm or before 8am) Neurosurgery offices (Friday through Friday between 8am-5pm): Adult Neurosurgery Dr. Tee Gomez Pediatric Neurosurgery Dr. Paul Miguel Associate Providers Larisa Zhou, Nurse Practitioner Paul Samuels, Physician Tourist Information Assistant Scott Rose, Nurse Practitioner Jacque Rodriguez, Nurse Practitioner Bette Okeefe, Nurse Practitioner Kaye Gallardo, Nurse Practitioner * Your surgeon may not be certified medical biller, so be ready to tell about yourself and your surgery when you call, especially after hours or on the weekend. Jacque Rodriguez APRN 04/21/2019 documented in this encounter Discharge Instructions Patient InstructionsWiJacque rivera, MIRYAM - 04/21/2019 12:58 PM EDT ENDOVASCULAR TREATMENT OF UNRUPTURED INTRACRANIAL ANEURYSM DISCHARGE INSTRUCTIONS PRESCRIPTION INSTRUCTIONS: Please see the medication reconciliation list on this discharge summary for a current list of your medications. [x] Brilinta: Please take this medication following treatment of your aneurysm. Your doctor will tell you how long you need to be on this medication at your follow up appointment. [x] Aspirin: Please take an aspirin daily for lifelong. This is necessary due to the coils that are placed in your aneurysm. -Please contact us if you are having bruising, bleeding from gums or nose, or heartburn/stomach painwhile taking the blood thinners. WHEN TO SEEK MEDICAL CARE: Signs or symptoms of an infection - Fever over 101F - Redness, swelling, or increasing pain around your puncture site - Drainage of pus or blood from your puncture site Headaches - These can be very intense for a few days, and are partially related to the dye used during the procedure and will get better on their own. - For headaches that are not relieved with pain medications, progressively worsen, or are severe please call New neurologic symptoms - New unsteadiness when walking - New weakness or sensory changes to one side of your body - Slurred speech or difficulty speaking - Facial droop - Confusion - Seizure - Any other concerning neurologic symptom Symptoms of a deep venous thrombosis (DVT) or pulmonary embolism (PE): - Swelling/warmth/redness of the leg - Pain in the leg, which can be worse with standing or walking - Chest pain or shortness of breath To help prevent a DVT: - Exercise regularly. Walking, at least several times daily, is helpful. - Ankle pump exercises (like pressing and releasing the gas pedal) should be done regularly. - Keep hydrated with water or other clear liquids (coffee/tea/cola can dehydrate you). - Avoid alcohol and crossing your legs. - Remember not to sit or lay in bed, while awake, for prolonged amounts of time. WOUND CARE: - The puncture site at the top of your thigh has no sutures. No wound care is necessary. The puncture site at the top of your leg can be very tender for a week or two. Avoid soaking in the tub or swimming for 7 days after procedure. Call us if you develop a hard or expanding lump, or worsening pain. Bruising at the area and along your thigh happens frequently. DIET: - You may resume your usual diet. ACTIVITY: - You may increase your activities as tolerated. - Restrict strenuous activity (such as running, jumping, jogging, shoveling, heavy lifting, etc.) for at least 2 weeks. FOLLOW UP PLAN: [x] Please follow up in the Neurosurgery Clinic in 4 weeks . Please call the Neurosurgery Office at [phone] if you do not receive a scheduled appointment within two weeks. You will follow-up with: [x] Dr. Persaud [] Dr. Willis Imaging: [x] None [] CT: [] Head [] Neck [] CTA: [] Head [] Neck [] MRA: [] Head [] Neck documented in this encounter Medications at Time [...] pressure cuff 1 each 0 03/18 Supply Misc - one ticagrelor (BRILINTA) 90 Take 1 tablet by 60 tablet 3 04/1408/25/2019 mg Tablet mouth 2 times daily. documented as of this encounter Progress Notes Ashley Mena RN - 04/21/2019 2:36 PM EDT Discharge instructions reviewed with pt and pt's mother. Questions answered. Implanted medical imaging director card sent home with patient. PIV removed prior to discharge. Pt accompanied to exit of 5W by RN. Ptreceiving ride home from his mother. Scott Rose APRN - 04/21/2019 7:10 AM EDT NEUROSURGERY PROGRESS NOTE ID: 43 yo male recently diagnosed with R VA and Acomm aneurysms s/p elective embo of A comm on 04/12.Here now for elective pipeline flow diversion of R VA aneurysm. HD# 2 POD # 2 Days Post-Op INTERVAL HX/ROS: - Stable neurological exam - CT angio showed pseudoaneurysm - Brillinta restarted - MRA completed overnight, results pending MEDICATIONS: Scheduled Meds: ??? amLODIPine 10 mg Oral Daily ??? aspirin 81 mg Oral Daily ??? lisinopril 10 mg Oral Daily ??? ticagrelor 90 mg Oral BID ??? melatonin 6 mg Oral Nightly Continuous Infusions: PRN Meds: acetaminophen, hydrOXYzine, ondansetron OR ondansetron EXAM: Vitals: Patient Vitals for the past 24 hrs: Temp Pulse Resp BP SpO2 O2 Flow Rate (L/min) O2 Device 04/20/19 0800 -- 86 22 121/74 97 % -- -- 04/20/19 0822 37.4 ??C (99.3 ??F) -- 23 -- 97 % -- 04/20/19 1000 -- 89 19 144/86 97 % -- -- 04/20/19 1020 (!) 38.1 ??C (100.6 ??F) -- 24 -- 98 % -- 04/20/19 1101 -- -- -- 144/86 -- -- -- 04/20/19 1200 -- 83 17 -- 98 % -- -- 04/20/19 1217 37.7 ??C (99.9 ??F) -- 20 -- 98 % -- 04/20/19 1400 -- 82 20 128/61 97 % -- -- 04/20/19 1407 37.7 ??C (99.9 ??F) -- 19 -- 95 % -- 04/20/19 1600 -- 89 27 -- 97 % -- -- 04/20/19 1621 36.7 ??C (98.1 ??F) -- 16 -- 97 % -- -- 04/20/19 1700 -- -- -- -- -- 0 L/min -- 04/20/192007 -- -- -- 132/71 -- -- -- 04/20/192016 36.7 ??C (98.1 ??F) -- -- -- 99 % -- 04/20/19 2300 36.7 ??C (98.1 ??F) 81 16 116/65 98 % -- 04/21/19 0400 -- -- -- 123/65 98 % -- -- 04/21/193 36.7 ??C (98.1 ??F) -- -- -- -- -- -- BMI: Weight: 113.4 kg (250 lb) (04/19/19 1603) BMI (Calculated): 35.87 BMI Classification: Obese I/O: I/O last 3 completed shifts: In: - Out: 4375 [Urine:4375] GEN- AAOx4, NAD, follows all commands and cooperates with exam; no aphasia, no dysarthria CN- PERRL, VFFTC, EOMI, no facial asymmetry, tongue midline, palate rises symmetrically MOTOR- no drift, BUE 5/5 throughout, BLE 5/5 throughout SENSATION - intact and symmetric to LT in BUE/BLE; acute R inguinal/inner thigh pain and tightness that worsens with ambulation; pulses intact, no hematoma at the groin puncture CEREBELLUM - FTN intact, HTS intact, no dysmetria, no nystagmus CV/PULM - RRR, no murmurs; LCBTA LABS: Recent Labs 04/20/19 0654 04/19/19 2235 WBC 15.9* 16.5* HGB 11.7* 12.3* PLATELET 275 291 No results for input(s): NA, K, CL, CO2, BUN, CREATININE in the last 72 hours. No results for input(s): PT, INR in the last 72 hours. A/P: 43 yo male s/p elective embo coiling of A comm aneurysm and now s/p pipeline flow diversion of R VA aneurysm. 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 Plan: - q2h neuro checks, VS - monitor groin site for any s/s hematoma or bleeding - follow up ultrasound of R SQL PROGRAMMER ANALYST to assess pseudoaneurysm - Brillinta and ASA - keep bedrest for now until ultrasound obtained - SBP < 160 - monitor CBC, BMP - ADAT - Follow-up MRA results - DC home today Scott Rose, MIRYAM PLEASE PAGE [phone] WITH QUESTIONS Active Hospital Problems Diagnosis ??? Vertebral artery aneurysm Resolved Hospital Problems No resolved problems to display. Active Non-Hospital Problems Diagnosis ??? Brain aneurysm ??? Aneurysm of artery ??? Aneurysm of vertebral artery ??? Intracranial aneurysm ??? Headache Scott Rose APRN 04/21/2019 Falguni Garcia APRN - 04/20/2019 6:54 AM EDT NEUROSURGERY PROGRESS NOTE ID: 43 yo male recently diagnosed with R VA and Acomm aneurysms s/p elective embo of A comm on 04/12.Here now for elective pipeline flow diversion of R VA aneurysm. HD# 1 POD # 1 Day Post-Op INTERVAL HX/ROS: - stable neurological exam - acute R inguinal pain and tightness with ambulation last night - CT angio showed pseudoaneurysm - Brillinta held until further plan MEDICATIONS: Scheduled Meds: ??? amLODIPine 10 mg Oral Daily ??? aspirin 81 mg Oral Daily ??? lisinopril 10 mg Oral Daily ??? ticagrelor 90 mg Oral BID ??? melatonin 6 mg Oral Nightly Continuous Infusions: PRN Meds: acetaminophen, hydrOXYzine, ondansetron OR ondansetron EXAM: Vitals: Patient Vitals for the past 24 hrs: Temp Pulse Resp BP SpO2 O2 Flow Rate (L/min) O2 Device 04/19/19 1200 -- -- -- -- 96 % -- -- 04/19/19 1202 37.4 ??C (99.3 ??F) 95 24 138/82 95 % 8 L/min Simple mask 04/19/19 1215 -- 79 20 138/84 99 % -- -- 04/19/19 1223 -- 77 23 -- 98 % -- -- 04/19/19 1230 37.5 ??C (99.5 ??F) 78 19 137/82 98 % 6 L/min Simple mask 04/19/19 1245 -- 78 16 145/81 98 % -- -- 04/19/19 1300 -- 81 20 151/84 98 % -- -- 04/19/19 1315 -- 81 18 (!) 139/95 95 % 2 L/min NC 04/19/19 1330 -- 76 24 136/78 96 % -- -- 04/19/19 1345 -- 73 27 142/86 97 % -- -- 04/19/19 1400 -- 76 14 124/78 95 % -- -- 04/19/19 1415 -- 90 17 126/76 95 % -- -- 04/19/19 1430 -- 81 14 -- 95 % -- -- 04/19/19 1445 -- 79 14 133/74 96 % -- -- 04/19/19 1500 -- 80 16 131/78 96 % -- -- 04/19/19 1515 -- 88 17 138/84 94 % -- -- 04/19/19 1530 36.9 ??C (98.4 ??F) 91 15 128/81 95 % 2 L/min NC 04/19/19 1545 -- 78 16 132/80 95 % -- -- 04/19/19 1603 37.6 ??C (99.7 ??F) -- -- -- -- 2 L/min NC 04/19/19 1605 -- 80 20 145/81 97 % -- -- 04/19/19 1800 -- 99 23 (!) 163/109 96 % -- -- 04/19/19 180 -- -- -- (!) 163/109 -- -- -- 04/19/191999 36.7 ??C (98.1 ??F) 89 22 159/82 96 % -- -- 04/19/19 220 36.5 ??C (97.7 ??F) 91 21 123/73 95 % -- -- 04/20/19 0000 36.9 ??C (98.4 ??F) 90 20 123/75 95 % -- -- 04/20/19 0100 -- -- -- -- -- -- RA 04/20/19 0219 -- 100 21 138/72 95 % -- -- 04/20/19 0230 36.8 ??C (98.2 ??F) -- -- -- -- -- -- 04/20/19 0400 -- 98 21 153/67 95 % -- -- 04/20/19 0430 36.9 ??C (98.4 ??F) -- -- -- -- -- -- BMI: Weight: 113.4 kg (250 lb) (04/19/19 1603) BMI (Calculated): 35.87 BMI Classification: Obese I/O: I/O last 3 completed shifts: In: 1800 [I.V.:1800] Out: 2650 [Urine:2650] GEN- AAOx4, NAD, follows all commands and cooperates with exam; no aphasia, no dysarthria CN- PERRL, VFFTC, EOMI, no facial asymmetry, tongue midline, palate rises symmetrically MOTOR- no drift, BUE 5/5 throughout, BLE 5/5 throughout SENSATION - intact and symmetric to LT in BUE/BLE; acute R inguinal/inner thigh pain and tightness that worsens with ambulation; pulses intact, no hematoma at the groin puncture CEREBELLUM - FTN intact, HTS intact, no dysmetria, no nystagmus CV/PULM - RRR, no murmurs; LCBTA LABS: Recent Labs 04/19/19 2235 WBC 16.5* HGB 12.3* PLATELET 291 No results for input(s): NA, K, CL, CO2, BUN, CREATININE in the last 72 hours. No results for input(s): PT, INR in the last 72 hours. IMAGING: Results for orders placed during the hospital encounter of 04/19/19 CT Angiogram Abdomen & Pelvis wwo Contrast Narrative EXAMINATION: CT ANGIOGRAM ABDOMEN AND PELVIS WWO CONTRAST CLINICAL HISTORY: acute pain to RLE with ambulation s/p femoral access for NeuroIR procedure today TECHNIQUE: Helical CT angiogram of the abdomen and pelvis was performed before and after the intravenous administration of contrast. Administered 150.0 ml of OMNIPAQUE 350.00 mg/ml. MPRs were performed. Multiplanar images were reviewed and 3-D images were generated on an independent workstation. COMPARISON: None FINDINGS: VASCULAR FINDINGS Right: Common iliac artery: patent. External iliac artery: patent. Internal iliac artery: patent. Common femoral artery: patent. There is extravascular contrast anterior to the distal aspect of the common femoral artery with surrounding hypodense material. Superficial femoral artery: The visualized aspects are patent. Profundus femoral artery: The visualized aspects are patent. Left: Common iliac artery: patent. External iliac artery: patent. Internal iliac artery: patent. Common femoral artery: patent. Superficial femoral artery: The visualized aspects are patent. Profundus femoral artery: The visualized aspects are patent. NON-VASCULAR FINDINGS Kidneys: The imaged portions of the bilateral kidneys are normal in appearance. Urinary Bladder: A small amount of nondependent gas is present within the urinary bladder, which may be related to recent catheter removal. Lymph Nodes: Scattered inguinal and iliac nodes, right greater than left, are not pathologically enlarged. Bowel: No bowel wall thickening or dilatation within the imaged portions of the bowel. Peritoneum and mesentery: No ascites, free air, or loculated fluid collection. Osseous structures: No suspicious findings. Postoperative changes status post laminotomy at the S1 level and spinal stimulator placement overlying the S1 level. Impression Extravascular contrast anterior to the distal aspect of the common femoral artery with surrounding hypodense material, consistent with a pseudoaneurysm. Recommend follow-up vascular ultrasound in the morning to evaluate if this has thrombosed. Preliminary report signed by: Amaya Pickett at 04/20/2019 2:34 AM I have personally reviewed the image(s) and the residents interpretation and agree with the findings, Asa Chan at 04/20/2019 2:48 AM Thank you for letting us participate in the care of this patient. For questions regarding this report, please contact the number below. A/P: 43 yo male s/p elective embo coiling of A comm aneurysm and now s/p pipeline flow diversion of R VA aneurysm. 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 Plan: - q2h neuro checks, VS - monitor groin site for any s/s hematoma or bleeding - follow up ultrasound of R SQL PROGRAMMER ANALYST to assess pseudoaneurysm - will discuss with team and Dr. Persaud re: when to resume Brilinta 2/2 pseudoaneurysm - keep bedrest for now until ultrasound obtained - SBP < 160 - monitor CBC, BMP - ADAT Falguni Garcia, APPLICATION SUPPORT LEAD PLEASE PAGE [phone] WITH QUESTIONS Active Hospital Problems Diagnosis ??? Vertebral artery aneurysm Resolved Hospital Problems No resolved problems to display. Active Non-Hospital Problems Diagnosis ??? Brain aneurysm ??? Aneurysm of artery ??? Aneurysm of vertebral artery ??? Intracranial aneurysm ??? Headache Falguni Garcia, APPLICATION SUPPORT LEAD 04/20/2019 Pricila Jin RN - 04/20/2019 1:43 AM EDT Pt down to CT at this time. Pricila Jin RN - 04/19/2019 11:[address] will notify RN with time for CT scan, pt and mother notified of update Pricila Jin RN - 04/19/2019 9:24 PM EDT @ approximately 1900, pt up for walk, reported pressure and pain in right leg, c/o sensation of swelling, some numbness. Incision site CDI, with light shadowing on dressing, some bruising around site. Pt denying any other symptoms. Jaimie Gracia UNDERWRITING ASSISTANT notified, at bedside to assess. Pt given Tylenol to help alleviate pain. Mother at bedside, will continue to monitor. Renae Steele RN - 04/19/2019 12:41 PM EDT 1220 Nursing hand-off from GRACE Warren for Break coverage. Pt given 0.4 mg iv Dilaudid X 1 for c/o 5/10 achy headache. 1230 When asked about pain level, states still 5/10 but is now somnolent, VSS. Will hold Dilaudid for now. Right groin dsg unchanged. HOB flat. Brandyn Magallanes MD - 04/19/2019 12:00 PM EDT INTERVENTIONAL RADIOLOGY BRIEF PROCEDURE NOTE Patient Name: Jaime Guzman : 1975 Case Date: 04/19/2019 Operators: Attending: Priscilla Persaud Resident/Fellow/Student: Elpidio Post-operative diagnosis/Indication: Fusiform right vertebral artery aneurysm Name of Procedure Performed: Pipeline flow-diverter placement Brief description of the procedure: ?? Right SQL PROGRAMMER ANALYST access, US-guided ?? Right and left ICA angiography, Right vertebral artery angiography ?? Flow-diverter placement across fusiform right vertebral artery aneurysm Findings of the procedure: - right PICA proximal to the inferior aspect of the flow-diverter; distal aspect of flow diverter just short of basilar artery origin - final angiography demonstrates appropriate appearance of flow-diverter, widely patent with anterior spinal artery filling preserved EBL: 30 mL Complications: No immediate Plan: 1. PACU for recovery and admit for observation. 2. Right groin site checks per standard protocol. 3. Continue home ticagrelor. FULL PROCEDURE NOTE TO FOLLOW IN IMAGE REPORT documented in this encounter Miscellaneous Notes Care Management - Bia Castillo RN - 04/21/2019 2:50 PM EDT D/C planning: Team: Neurosurg Pager: [phone] Pt to d/c home via private vehicle. Pt/team feel no d/c needs identified at this time. Bia NAJERA, RN CM railway signal operator Office of Care Management Pager #[phone] Plan of Care - Pricila Jin RN - 04/21/2019 6:32 AM EDT Problem: Skin Integrity Impairment, Risk/Actual (Adult) Intervention: Prevent/Minimize Sheer/Friction Injuries 04/21/19 0500 Positioning Positioning/Transfer Devices pillows OUTCOME EVALUATION NOTE: OUTCOME SUMMARY: Pt A&O x4. Tylenol administered for EGAN. Pt appeared to be resting throughout night. R groin siteintact, sensation of thigh pressure decreased. Mother at bedside. Pt anxious to go home. Call barney remains within reach. PLAN MOVING FORWARD: D/c planning, monitor VS, neuro status INDIVIDUALIZED FALL PREVENTION INTERVENTIONS: Patient-specific fall risk factors per assessment: gen weakness, unfamiliar environment Assistance: Independent Supervision: Independent, Eyes on, Arms reach, Hands on Surveillance: Bed locked in low position, call barney within reach, purposeful hourly rounding, clutter free environment, bed/chair alarm on, family at bedside Patient-specific fall prevention interventions for sensory deficits provided: yes CPG GOAL OUTCOME EVALUATION: Continue care plan as documented. Problem: Patient Care Overview Goal: Plan of Care Review Outcome: Ongoing (Interventions Implemented as Appropriate) 04/19/19172804/20/191999 Plan of Care Review Progress progress toward functional goals as expected -- Coping/Psychosocial Plan Of Care Reviewed With -- patient Goal: Individualization & Mutuality Outcome: Ongoing (Interventions Implemented as Appropriate) 04/19/191727 Mutuality/Individual Preferences What Anxieties, Fears or Concerns Do You Have About Your Health or Care? none What Questions Do You Have About Your Health or Care? none What Information Would Help Us Give You More Personalized Care? nothing Goal: Fall Prevention-Safe Patient Handling Outcome: Ongoing (Interventions Implemented as Appropriate) 04/20/19199904/21/19 0500 Lebron Fall Risk History of Falling 0 -- Secondary Diagnosis 0 -- Ambulatory Aids 0 -- Intravenous Therapy/Heparin/Saline Lock 0 -- Gait/Transferring 0 -- Mental Status 0 -- Score 0 -- OTHER Lebron Fall Risk Low -- Restraint Interventions Safety Promotion/Fall Prevention -- safety round/check completed Positioning Body Position -- independent Activity Activity Type -- activity adjusted per tolerance Activity Assistance Provided -- assistance, stand-by Goal: Infection Control Outcome: Ongoing (Interventions Implemented as Appropriate) 04/20/19199904/21/19 0500 Safety Interventions Isolation Precautions -- standard precautions maintained Infection Prevention -- environmental surveillance performed Coping Strategies Supportive Measures active listening utilized -- Goal: Discharge Needs Assessment 04/21/19623 Discharge Needs Assessment Discharge Disposition still a patient Goal: Interdisciplinary Rounds/Family Conf Outcome: Ongoing (Interventions Implemented as Appropriate) 04/21/19623 Interdisciplinary Rounds/Family Conf Participants patient;nursing Initial Assessments - Chaim Johnston MSW - 04/20/2019 11:24 AM EDT Office of Care Management Initial Assessment YEHUDA Wesley reviewed record and discussed patient with Care Team. Source of Information: Patient, Mother, Chart, Treatment Team Introduced self/reviewed role; services accepted. Reason for Hospitalization: Reason for Admission as Stated by Patient: I had my anneurysm fixed elective pipeline flow diversion of R VA aneurysm. Past Medical History: Diagnosis Date ??? 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 Headache 03/13/2019 ??? 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 Home Environment: 3 steps to enter single floor living Social & Family Supports/Community Resources: patient has devoted sister, lives with his son, girlfriend, girlfriend's daughter, a dog (beagle mix) Behavioral Health History: Anxiety (sister mentioned depression) Substance Use/Abuse: Smoking: denies, quit in Oct '18, 20 pack years, EtOH: socially, once every 3 months Illicits: smokes marijuana (helps relax and good for back), daily- will consider CBD oil and think about scaling back Other Pertinent/Service Specific Information: Health/Prescription Coverage: Primary Insurance: [employer] Secondary Insurance: N/A Prescription Coverage: yes Preferred Pharmacy: [facility] Primary Care Provider: Ryne Harris MD [phone] Patient/Caregiver Goals of Treatment: Potential Needs for Transition of Care: Rehab/SNF: TBD Home Health: [facility] if required DME: TBD Dialysis: NA Community Resources: Available Transportation: SO or sister Anticipated Barriers to Discharge/Special Considerations: none Assessment: 43 y.o. left handed male with a PMH of migraines (as a teenager), s/p lumbar fusion (L5-S1), 43 yo male recently diagnosed with R VA and Acomm aneurysms s/p elective embo of A comm on 04/12.Here now for elective pipeline flow diversion of R VA aneurysm. Plan: Likely home with follow up A member of the Care Management team will continue to monitor progress, follow for continuity of care and assist with transition of care planning. YEHUDA Wesley Pager: [phone] Plan of Care - Pricila Jin RN - 04/20/2019 7:21 AM EDT Problem: Patient Care Overview Goal: Plan of Care Review Outcome: Ongoing (Interventions Implemented as Appropriate) 04/19/19159904/19/19 1729 Plan of Care Review Progress -- progress toward functional goals as expected Coping/Psychosocial Plan Of Care Reviewed With patient -- Pt A&O x 4. Pressure in R thigh remains. Rested throughout night. Call barney remains within reach. Goal: Fall Prevention-Safe Patient Handling Outcome: Ongoing (Interventions Implemented as Appropriate) 04/19/19159904/19/19199904/20/19 0430 Lebron Fall Risk History of Falling -- 0 -- Secondary Diagnosis -- 0 -- Ambulatory Aids -- 0 -- Intravenous Therapy/Heparin/Saline Lock -- 0 -- Gait/Transferring -- 0 -- Mental Status -- 0 -- Score -- 0 -- OTHER Lebron Fall Risk Low -- -- Restraint Interventions Safety Promotion/Fall Prevention -- -- safety round/check completed Positioning Body Position -- up in chair -- Activity Activity Type -- -- activity adjusted per tolerance Activity Assistance Provided -- -- assistance, stand-by Goal: Infection Control Outcome: Ongoing (Interventions Implemented as Appropriate) 04/19/19199904/20/19 0430 Safety Interventions Isolation Precautions -- standard precautions maintained Infection Prevention -- rest/sleep promoted Coping Strategies Supportive Measures active listening utilized -- Plan of Care - Alba Puritt RN - 04/19/2019 5:30 PM EDT Problem: Skin Integrity Impairment, Risk/Actual (Adult) Intervention: Prevent/Minimize Sheer/Friction Injuries 04/19/19 1530 Positioning Positioning/Transfer Devices pillows;in use Goal: Skin Integrity/Wound Healing Patient will demonstrate the desired outcomes by discharge/transition of care. 04/19/19 1729 Skin Integrity Impairment, Risk/Actual (Adult) Skin Integrity/Wound Healing making progress toward outcome Problem: Patient Care Overview Goal: Plan of Care Review 04/19/19 1600 04/19/19 1729 Plan of Care Review Progress -- progress toward functional goals as expected Coping/Psychosocial Plan Of Care Reviewed With patient -- Goal: Individualization & Mutuality 04/19/19 1728 Mutuality/Individual Preferences What Anxieties, Fears or Concerns Do You Have About Your Health or Care? none What Questions Do You Have About Your Health or Care? none What Information Would Help Us Give You More Personalized Care? nothing Goal: Fall Prevention-Safe Patient Handling 04/19/19 1600 Lebron Fall Risk History of Falling 0 Secondary Diagnosis 0 Ambulatory Aids 0 Intravenous Therapy/Heparin/Saline Lock 0 Gait/Transferring 0 Mental Status 0 Score 0 OTHER Lebron Fall Risk Low Restraint Interventions Safety Promotion/Fall Prevention safety round/check completed;fall prevention program maintained;activity supervised Positioning Body Position independent Activity Activity Type activity adjusted per tolerance Activity Assistance Provided assistance, stand-by Goal: Infection Control 04/19/19 1600 Safety Interventions Isolation Precautions standard precautions maintained Infection Prevention environmental surveillance performed;personal protective equipment utilized;rest/sleep promoted;single patient room provided Coping Strategies Supportive Measures active listening utilized;counseling provided;decision- making supported;goal setting facilitated;guided imagery facilitated;journaling promoted;positive reinforcement provided;problem solving facilitated;relaxation techniques promoted;self-care encouraged;self-reflection promoted;self- responsibility promoted;verbalization of feelings encouraged documented in this encounter Plan of Treatment Scheduled Orders Name Type Priority Associated Diagnoses Order S chedule US Extremity Vascular Imaging STAT 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 ARTERIAL DUPLEX LEG STAT 04/20/2019 8:55 Pseudoaneurysm Res ults for this UNILA AM EDT procedure are i n the results section. HEMOGRAM Routine 04/20/2019 6:54 Results for this AM EDT procedure are i n the results section. CT ANGIOGRAM OF STAT 04/20/2019 2:09 Results f or this ABDOMEN AND PELVIS AM EDT procedure are in WWO CONTRAST the results section. HEMOGRAM Routine 04/19/2019 10:35 Results for this PM EDT procedure are i n the results section. GREEN TUBE HOLD Routine 04/19/2019 10:35 Results for this PM EDT procedure are i n the results section. @TRANSCATHETER 04/19/2019 8:21 communicating artery OCCLUSION/EMBOLIZATI AM EDT aneurysm ON FOR TUMOR DESTRUCTION documented in this encounter Results MRI Angiogram Head wo Contrast (Generic) (04/20/2019 7:33 PM EDT) Anatomical Region Laterality Modality Head Magnetic Resonance Specimen (Source) Anatomical Location Collection Method / Collectio n Time Received Time / Laterality Volume Impressions 04/21/2019 7:50 AM EDT 1. ??Coil occlusion of the ACOM aneurysm. 2. 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 Thank you for letting us participate in the care of this patient. For questions regarding this report, please contact e number below. ? Electronically signed by: Jean Yanez [facility] ([phone]), at 04/21/2019 7:50 AM Narrative 04/21/2019 7:50 AM EDT EXAMINATION: MRI ANGIOGRAM HEAD WO CONTRAST (GENERIC) CLINICAL HISTORY: Follow-up coil emboliz ation ACOM aneurysm, R VA fusiform aneurysm TECHNIQUE: MRA of the head performed without contra st. 3-D MIP reconstructions were created. COMPARISON: CTA 03/13/2019, angiogram 04/12/2019, kristen ogram 04/19/2019 FINDINGS: Intracranial internal carotid arteries a re normal in caliber. There is an infundibulum at the origin of the right ophthalmic artery. Artifact is present along the right A2 segment and left A1 A CA segments related to the presence of a stent. The previously demonstrated ACOM region aneurysm is occluded by coil. No significant residual aneurysm is identif ied. The previously seen aneurysm along the intradural right vertebral artery do es not demonstrate flow related enhancement, with some signal loss relat ed to pipeline stent. No flow-related enhancement is identified within the ane urysm. Intradural vertebral arteries and basilar artery are otherwise normal. Pos terior cerebral arteries are normal. Procedure Note Jean Yanez MD - 04/21/2019Format ting of this note might be different from the original. EXAMINATION: MRI ANGIOGRAM HEAD WO CONTR AST (GENERIC) CLINICAL HISTORY: Follow-up coil emboliz ation ACOM aneurysm, R VA fusiform aneurysm TECHNIQUE: MRA of the head performed without contra st. 3-D MIP reconstructions were created. COMPARISON: CTA 03/13/2019, angiogram 04/12/2019, kristen ogram 04/19/2019 FINDINGS: Intracranial internal carotid arteries a re normal in caliber. There is an infundibulum at the origin of the right ophthalmic artery. Artifact is present along the right A2 segment and left A1 A CA segments related to the presence of a stent. The previously demonstrated ACOM region aneurysm is occluded by coil. No significant residual aneurysm is identif ied. The previously seen aneurysm along the intradural right vertebral artery do es not demonstrate flow related enhancement, with some signal loss relat ed to pipeline stent. No flow-related enhancement is identified within the ane urysm. Intradural vertebral arteries and basilar artery are otherwise normal. Pos terior cerebral arteries are normal. IMPRESSION 1. Coil occlusion of the ACOM aneurysm. 2. No flow-related enhancement seen in t he treated right vertebral artery aneurysm. Thank you for letting us participate in the care of this patient. For questions regarding this report, please contact th e number below. Electronically signed by: SAMUEL Malcolm [facility] ([phone]), at 04/21/2019 7:50 AM Larisa Zhou APPLICATION SUPPORT LEAD IMG MRI ORDERABLES Arterial Duplex Leg, Unil (04/20/2019 8:55 AM EDT) Component Value Ref Test Analysis Performed At [facility] gist Range Method Time Signature VB Text Department: Vascular Surgery Lab [facility]AS[facility] Report Patient: [id number] (JAIME GUZMAN) CPT: 64214 ICD10: I72.9 Referring Physician: HARDEEP PERSAUD ?? Phone: Indications: ??s/p RIGHT groin cardiac cath, ? pseudoaneurys m ICD10 Diagnosis Code: I72.9 Findings: Right ? PSV (cm/s) ??EDV ?? Common Femoral Artery, Mid ? 123 ?? 27 ?? Interpretation: RIGHT: Patent common femoral vein and ar nneka with normal Doppler waveforms. No evidence of pseudoaneurysm, arteriovenous fistula, or hemato ma. Comparison: ??No previous study in our vascular lab da tabase for comparison. Electronically Signed by: ADI RDZ on 2019-04-22 07:38:40 PM VB Text End of Report [facility]ASCU[facility] Report Specimen (Source) Anatomical Collection Method Collection Time Re ceived Time Location / / Volume Laterality 04/20/2019 8:55 AM EDT Hardeep Persaud MD VASCULAR ORDERABLES Performing Organization Address City/State/ZIP Code Phon e Number [facility] (ABNORMAL) Hemogram (04/20/2019 6:54 AM EDT) Analysis Performed At Patho logist Time Signature WBC 15.9 (H) 4.0 - 9.5 [place] x10(3)/[facility] LABORATORY RBC 3.63 (L) 4.58 - [place] 5.54 [facility] x10(6)/[facility] LABORATORY Hemoglobin 11.7 (L) 13.7 - [place] 16.5 gm/dL [facility] LABORATORY Hematocrit 33.8 (L) 40.5 - [place] 48.5 % [facility] LABORATORY MCV 93.1 82.9 - [place] 93.1 fL [facility] LABORATORY MCH 32.2 (H) 27.5 - [place] 32.1 pg [facility] LABORATORY MCHC 34.6 32.0 - [place] 35.7 gm/dL [facility] Platelets 275 145 - 357 [place] x10(3)/[facility] LABORATORY RDWSD 41.8 36.0 - [place] 45.0 [facility] RDWCV 12.3 11.4 - [place] 13.8 % [facility] MPV 9.0 7.6 - 12.9 [place] [facility] LABORATORY nRBC % Auto 0.0 % [facility] nRBC Abs Auto 0.000 0.000 - [place] 0.000 [facility] x10(3)/[facility] LABORATORY Specimen Anatomical Collection Method Collection Time Receive d Time (Source) Location / / Volume Laterality Blood specimen 04/20/2019 6:54 AM 019 7:17 (specimen) EDT AM EDT Resulting Agency Comment Spec In Lab Falguni Garcia APPLICATION SUPPORT LEAD HEMATOLOGY ORDERABLES Performing Organization Address City/State/ZIP Code Phon e Number [facility] [place] [id number] CT Angiogram Abdomen & Pelvis wwo Contrast (04/20/2019 2:09 AM EDT) Anatomical Region Laterality Modality Abdomen, Pelvis Computed Tomography Specimen (Source) Anatomical Location Collection Method / Collectio n Time Received Time / Laterality Volume Impressions 04/20/2019 2:48 AM EDT Extravascular contrast anterior to the distal aspect of the common femoral artery with surrounding hypodense materi al, consistent with a pseudoaneurysm. Recommend follow-up vascular ultrasound in the morning to evaluate if this has thrombosed. Preliminary report signed by: Amaya zhou at 04/20/2019 2:34 AM I have personally reviewed the image(s) and the residents interpretation and agree with the findings, Asa butterfield 04/20/2019 2:48 AM Thank you for letting us participate in the care of this patient. For questions regarding this report, please contact e number below. ? Electronically signed by: SAMUEL Munoz [facility] ([phone]), at 04/20/2019 2:48 AM Narrative 04/20/2019 2:48 AM EDT EXAMINATION: CT ANGIOGRAM ABDOMEN AND PELVIS WWO CONTRAST CLINICAL HISTORY: acute pain to RLE with ambulation s/p femoral access for NeuroIR procedure today TECHNIQUE: Helical CT angiogram of the a bdomen and pelvis was performed before and after the intravenous administration of contrast. Administered 150.0 ml of OMNIPAQUE 350.00 mg/ml. MPRs were perfor med. Multiplanar images were reviewed and 3-D images were generated on an [employer] workstation. COMPARISON: None FINDINGS: VASCULAR FINDINGS Right: Common iliac artery: ??patent. External iliac artery: patent. Internal iliac artery: patent. Common femoral artery: patent. There is extravascular contrast anterior to the distal aspect of the common femoral sabina ry with surrounding hypodense material. Superficial femoral artery: The visualiz ed aspects are patent. Profundus femoral artery: The visualized aspects are patent. Left: Common iliac artery: patent. External iliac artery: patent. Internal iliac artery: patent. Common femoral artery: patent. Superficial femoral artery: The visualiz ed aspects are patent. Profundus femoral artery: The visualized aspects are patent. NON-VASCULAR FINDINGS Kidneys: The imaged portions of the bila teral kidneys are normal in appearance. Urinary Bladder: A small amount of nonde pendent gas is present within the urinary bladder, which may be related to recent catheter removal. Lymph Nodes: Scattered inguinal and porsche c nodes, right greater than left, are not pathologically enlarged. Bowel: No bowel wall thickening or dilat ation within the imaged portions of the bowel. Peritoneum and mesentery: No ascites, fr ee air, or loculated fluid collection. Osseous structures: No suspicious findin gs. Postoperative changes status post laminotomy at the S1 level and spinal st imulator placement overlying the S1 level. Procedure Note Asa Chan MD - 04/20/2019Formatt ing of this note might be different from the original. EXAMINATION: CT ANGIOGRAM ABDOMEN AND PE LVIS WWO CONTRAST CLINICAL HISTORY: acute pain to RLE with ambulation s/p femoral access for NeuroIR procedure today TECHNIQUE: Helical CT angiogram of the a bdomen and pelvis was performed before and after the intravenous administration of contrast. Administered 150.0 ml of OMNIPAQUE 350.00 mg/ml. MPRs were perfor med. Multiplanar images were reviewed and 3-D images were generated on an [employer] workstation. COMPARISON: None FINDINGS: VASCULAR FINDINGS Right: Common iliac artery: patent. External iliac artery: patent. Internal iliac artery: patent. Common femoral artery: patent. There is extravascular contrast anterior to the distal aspect of the common femoral sabina ry with surrounding hypodense material. Superficial femoral artery: The visualiz ed aspects are patent. Profundus femoral artery: The visualized aspects are patent. Left: Common iliac artery: patent. External iliac artery: patent. Internal iliac artery: patent. Common femoral artery: patent. Superficial femoral artery: The visualiz ed aspects are patent. Profundus femoral artery: The visualized aspects are patent. NON-VASCULAR FINDINGS Kidneys: The imaged portions of the bila teral kidneys are normal in appearance. Urinary Bladder: A small amount of nonde pendent gas is present within the urinary bladder, which may be related to recent catheter removal. Lymph Nodes: Scattered inguinal and porsche c nodes, right greater than left, are not pathologically enlarged. Bowel: No bowel wall thickening or dilat ation within the imaged portions of the bowel. Peritoneum and mesentery: No ascites, fr ee air, or loculated fluid collection. Osseous structures: No suspicious findin gs. Postoperative changes status post laminotomy at the S1 level and spinal st imulator placement overlying the S1 level. IMPRESSION Extravascular contrast anterior to the d istal aspect of the common femoral artery with surrounding hypodense materi al, consistent with a pseudoaneurysm. Recommend follow-up vascular ultrasound in the morning to evaluate if this has thrombosed. Preliminary report signed by: Amaya zhou at 04/20/2019 2:34 AM I have personally reviewed the image(s) and the residents interpretation and agree with the findings, Asa butterfield 04/20/2019 2:48 AM Thank you for letting us participate in the care of this patient. For questions regarding this report, please contact e number below. Electronically signed by: Asa Chan [facility] ([phone]), at 04/20/2019 2:48 AM Falguni Garcia APRN IMG CT ORDERABLES Green Tube HOLD (04/19/2019 10:35 PM EDT) P athologist Signature Green Hold Sample in [facility] lab. [facility] LABORATORY Specimen Anatomical Collection Method Collection Time Receive d Time (Source) Location / / Volume Laterality Blood specimen Venous Draw / 04/19/2019 10:35 04/19/20 19 (specimen) Unknown PM EDT 10:40 PM EDT Falguni Gracia APRN CHEMISTRY ORDERABLES Performing Organization Address City/State/[place] [address] (ABNORMAL) Hemogram (04/19/2019 10:35 PM EDT) Analysis Performed At Patho logist Time Signature WBC 16.5 (H) 4.0 - 9.5 [place] x10(3)/[facility] LABORATORY RBC 3.80 (L) 4.58 - [place] 5.54 [facility] x10(6)/[facility] LABORATORY Hemoglobin 12.3 (L) 13.7 - [place] 16.5 gm/dL [facility] LABORATORY Hematocrit 34.5 (L) 40.5 - [place] 48.5 % [facility] LABORATORY MCV 90.8 82.9 - [facility] [place] 93.1 [facility] LABORATORY MCH 32.4 (H) 27.5 - [place] 32.1 pg [facility] LABORATORY MCHC 35.7 32.0 - [place] 35.7 gm/dL [facility] LABORATORY Platelets 291 145 - 357 [place] x10(3)/[facility] LABORATORY RDWSD 40.5 36.0 - [facility] 45.0 [facility] LABORATORY RDWCV 12.4 11.4 - [place] 13.8 % [facility] LABORATORY MPV 8.8 7.6 - 12.9 [facility] nRBC % Auto 0.0 % [facility] LABORATORY nRBC Abs Auto 0.000 0.000 - [place] 0.000 [facility] x10(3)/[facility] LABORATORY Specimen Anatomical Collection Method Collection Time Receive d Time (Source) Location / / Volume Laterality Blood specimen 04/19/2019 10:35 9 (specimen) PM EDT 10:39 PM EDT Resulting Agency Comment Spec In Lab Falguni Garcia APPLICATION SUPPORT LEAD HEMATOLOGY ORDERABLES Performing Organization Address City/State/[place] [address] documented in this encounter Visit Diagnoses Diagnosis Pseudoaneurysm Aneurysm of unspecified site 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 documented in this encounter Admitting Diagnoses Diagnosis 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 documented in this encounter Administered Medications Inactive Administered Medications - up to 3 most recent administrations Medication Order MAR Action Action Date Dose Rate Site acetaminophen (TYLENOL) tablet 650 Given 04/21/2019 7:20 AM EDT 650 mg mg 650 mg, Oral, EVERY 4 HOURS PRN, Starting on Fri04/19/19 at 1237, Until Fri04/21/19 at 1651, Pain, Maximum dose of acetaminophen is 4000 mg from all sources in 24 hours., Routine Given 04/21/2019 12:29 AM EDT 650 mg Given 04/19/2019 9:15 PM EDT 650 mg acetaminophen (TYLENOL) tablet 650 mg Given 04/19/2019 1:47 PM EDT 650 mg 650 mg, Oral, EVERY 4 HOURS PRN, Starting on Fri04/19/19 at 1237, Until Fri04/19/19 at 1630, Pain, for MILD pain (1-3), Do not exceed 4,000 mg in 24 hours, Routine amLODIPine (NORVASC) tablet 10 mg Given 04/21/2019 8:38 AM EDT 10 mg 10 mg, Oral, DAILY, First dose on Fri04/19/19 at 1645, Until Discontinued, Routine Given 04/20/2019 11:01 AM EDT 10 mg aspirin chewable tablet 81 mg Given 04/21/2019 8:38 AM EDT 81 mg 81 mg, Oral, DAILY, First dose on Fri04/19/19 at 1645, Until Discontinued, Routine Given 04/20/2019 11:18 AM EDT 81 mg HYDROmorphone (DILAUDID) injection 0.2-0.4 Given 04/19/2019 12:27 PM EDT 0.4 mg mg 0.2-0.4 mg, Intravenous, EVERY 5 MIN PRN, Starting on Fri04/19/19 at 1144, Until Fri04/19/19 at 1447, Pain, Give 0.2 mg every 5 minutes PRN for mild to moderate pain (1-5) Give 0.4 mg every 5 minutes PRN for moderate to severe pain (6-10). Hold for respiratory rate less than 10 per minute. Maximum dose 4 mg over one hour. If multiple pain medications are ordered, start with hydromorphone or morphine and use fentanyl for breakthrough pain., PACU Recovery, Routine hydrOXYzine (ATARAX) tablet 25 mg Given 04/20/2019 9:08 PM EDT 25 mg 25 mg, Oral, DAILY PRN, Starting on Fri04/19/19 at 1345, Until Fri04/21/19 at 1651, headaches, Routine Given 04/19/2019 3:14 PM EDT 25 mg iohexol (OMNIPAQUE) 350 mg/mL solution 0-200 Given 2:10 AM EDT 150 mLs mL 0-200 mL, Intravenous, ONCE PRN, 1 dose, Starting on Fri04/20/19 at 0209, Until Fri04/20/19 at 0210, Per Protocol, Warning Vesicant/Irritant Medication , Radiology Contrast, Routine lactated ringers infusion New Bag 04/19/2019 6:45 AM EDT 1,000 mLs 100 mL/hr 1,000 mL, at 100 mL/hr, Intravenous, CONTINUOUS, Starting on Fri04/19/19 at 0645, Until Fri04/19/19 at 1447, Day of Surgery (Day of Procedure) lidocaine (XYLOCAINE) 10 mg/mL (1 %) injection Given 0 04/19/2019 6:42 AM EDT 3 mg 3 mg 3 mg (0.3 mL), Subcutaneous, ONCE PRN, 1 dose, Starting on Fri04/19/19 at 0625, Until Fri04/19/19 at 0642, for discomfort with PIV insertion, Day of Surgery (Day of Procedure), Routine lisinopril (PRINIVIL;ZESTRIL) tablet 10 mg Given 04/21/2019 8:38 AM EDT 10 mg 10 mg, Oral, DAILY, First dose on Fri04/19/19 at 1645, Until Discontinued, Routine Given 04/20/2019 11:02 AM EDT 10 mg Given 04/19/2019 6:03 PM EDT 10 mg melatonin tablet 6 mg Given 04/20/2019 9:08 PM EDT 6 mg 6 mg, Oral, NIGHTLY, First dose on Fri04/19/19 at 2230, Until Discontinued, Routine ondansetron (ZOFRAN) injection 4-8 mg 4-8 mg, Intravenous, EVERY 8 HOURS PRN, Starting on Fri04/19/19 at 1624, Until Fri04/21/19 at 1651, Nausea, Start with 4mg and if ineffective in 30 minutes, give an additional 4mg If multiple antiemetic s are ordered, give ondansetron first. ondansetron (ZOFRAN) tablet 4-8 mg 4-8 mg, Oral, EVERY 8 HOURS PRN, Startin g on Fri04/19/19 at 1624, Until Fri04/21/19 at 1651, Nausea, Vomiting, If multiple antiemetics are ordered, use ondansetron first. PO Preferred. If patient unable to take PO, may give IV if ordered. Start with 4mg and if ineffective in 45 minutes, give an add itional 4mg. If unable to take PO, may give IV., Routine prochlorperazine (COMPAZINE) injection 5 mg Given 04/19/2019 1:53 PM EDT 5 mg 5 mg, Intravenous, EVERY 30 MIN PRN, 2 doses, Starting on Fri04/19/19 at 1144, Until Fri04/19/19 at 1447, Nausea, May repeat 5 mg once in 30 minutes. If multiple antiemetics ordered, use ondansetron first and if ineffective use prochlorperazine second and if ineffective use promethazine, PACU Recovery, Routine ticagrelor (BRILINTA) tablet 90 mg Given 04/21/2019 8:38 AM EDT 90 mg 90 mg, Oral, 2 TIMES DAILY, First dose on Fri04/19/19 at 2100, Until Discontinued, After initial loading dose of aspirin (usually 325 mg), use ticagrelor with daily maintenance dose of aspirin of 81 mg , Routine Given 04/20/2019 8:08 PM EDT 90 mg Given 04/20/2019 11:18 AM EDT 90 mg documented in this encounter Active and Recently Administered Medications Times are shown in EDT. Scheduled Medication Order 04/19/2019 04/20/2019 04/21/2019 amLODIPine (NORVASC) tablet 10 mg 1645 (Not Given - Pr ovider: Alba Pruitt RN - Reason: Patient/family refused) 1101 (Given - Provider: Alba Pruitt RN) 0838 (Given - Provider: Ashley Mena RN) 10 mg, Oral, DAILY, First dose on Fri at 1645, Until Discontinued, Routine aspirin chewable tablet 81 mg 1645 (Not Given - Provid er: Alba Pruitt RN - Reason: Patient/family refused) 1118 (Given - Provider: Alba Pruitt RN) 0838 (Given - Provider: Ashley Mena RN) 81 mg, Oral, DAILY, First dose on Fri at 1645, Until Discontinued, Routine lisinopril (PRINIVIL;ZESTRIL) tablet 10 mg 1803 (Given - Provider: Alba Pruitt RN) 1102 (Given - Provider: Alba Pruitt RN) 0838 (Given - Provider: Ashley Mena RN) 10 mg, Oral, DAILY, First dose on Fri at 1645, Until Discontinued, Routine melatonin tablet 6 mg 2230 (Hold - Provider: Pricila Jin RN - Reason: Patient/family refused) 2107 (Given - Provider: Pricila Jin RN) 6 mg, Oral, NIGHTLY, First dose on Fri at 2230, Until Discontinued, Routine ticagrelor (BRILINTA) tablet 90 mg 2100 (Hold - Provid er: Pricila Jin RN - Reason: Per MD Order) 1118 (Given - Provider: Kale Tay N)2007 (Given - Provider: Pricila Jin RN) 0838 (Given - Provider: Ashley cardoza RN) 90 mg, Oral, 2 TIMES DAILY, First dose o n Fri04/19/19 at 2100, Until Discontinued, After initial loading dose of aspirin (usually 325 mg), use ticagrelor with daily maintenance dose of aspirin of 81 mg , Routine Continuous Medication Order 04/19/2019 04/20/2019 04/21/2019 lactated ringers infusion (CANCELED) 0645 (New Bag - P rovider: Katlyn Gray RN) 1,000 mL, at 100 mL/hr, Intravenous, CON TINUOUS, Starting Fri04/19/19 at 0645, Until Fri04/19/19 at 1447, Day of Surgery (Day of Procedure) PRN Medication Order 04/19/2019 04/20/2019 04/21/2019 acetaminophen (TYLENOL) tablet 650 mg 2115 (Given - Pr ovider: Pricila Lang RN) 0029 (Given - Provider: Pricila Jin RN)0720 (Given - Provider: Pricila Jin RN) 650 mg, Oral, EVERY 4 HOURS PRN, Startin g Fri04/19/19 at 1237, Until Fri04/21/19 at 1651, Pain, Maximum dose of acetaminophen is 4000 mg from all sources in 24 hours., Routine acetaminophen (TYLENOL) tablet 650 mg (CANCELED) 1347 (Given - Provider: Zane Peralta RN) 650 mg, Oral, EVERY 4 HOURS PRN, Startin g 04/19/19 at 1237, Until Fri04/19/19 at 1630, Pain, for MILD pain (1-3), Do not exceed 4,000 mg in 24 hours, Routine HYDROmorphone (DILAUDID) injection 0.2-0.4 mg (CANCELE D) 1227 (Given - Provider: Zane Peralta RN) 0.2-0.4 mg, Intravenous, EVERY 5 MIN PRN , Starting Fri04/19/19 at 1144, Until Fri04/19/19 at 1447, Pain, Give 0.2 mg every 5 minutes PRN for mild to moderate pain (1-5) Give 0.4 mg every 5 minutes PRN f or moderate to severe pain (6-10). Hold for respiratory rate less than 10 per minute. Maximum dose 4 mg over one hour. If multiple pain medications are ordered, start with hydromorphone or morphine and use fentanyl for breakthrough pain., PACU Recovery, Routine hydrOXYzine (ATARAX) tablet 25 mg 1514 (Given - Provid er: Zane Peralta RN) 2108 (Given - Provider: Pricila Jin, GRACE) 25 mg, Oral, DAILY PRN, Starting 04/01 at 1345, Until Fri04/21/19 at 1651, headaches, Routine iohexol (OMNIPAQUE) 350 mg/mL solution 0-200 mL (COMPLETED) 209 (Given - Provider: Julian Najera) 0-200 mL, Intravenous, ONCE PRN, 1 dose, Starting Fri04/20/19 at 0209, Until Fri04/20/19 at 0210, Per Protocol, Warning Vesicant/Irritant Medication , Radiology Contrast, Routine lidocaine (XYLOCAINE) 10 mg/mL (1 %) injection 3 mg (C OMPLETED) 0642 (Given - Provider: Katlyn Gray RN) 3 mg (0.3 mL), Subcutaneous, ONCE PRN, 1 dose, Starting Fri04/19/19 at 0625, Until Fri04/19/19 at 0642, for discomfort with PIV insertion, Day of Surgery (Day of Procedure), Routine ondansetron (ZOFRAN) injection 4-8 mg(Linked Group 1) 4-8 mg, Intravenous, EVERY 8 HOURS PRN, Starting Fri04/19/19 at 1624, Until Fri04/21/19 at 1651, Nausea, Start with 4mg and if ineffective in 30 minutes, give an additional 4mg If multiple antiemetics are ordered, give ondansetron first. ondansetron (ZOFRAN) tablet 4-8 mg(Linked Group 1) 4-8 mg, Oral, EVERY 8 HOURS PRN, Startin g 04/19/19 at 1624, Until Fri04/21/19 at 1651, Nausea, Vomiting, If multiple antiemetics are ordered, use ondansetron first. PO Preferred. If patient unabl e to take PO, may give IV if ordered. St art with 4mg and if ineffective in 45 minutes, give an additional 4mg. If unable to take PO, may give IV., Routine prochlorperazine (COMPAZINE) injection 5 mg (CANCELED) 1353 (Given - Provider: Zane Peralta RN) 5 mg, Intravenous, EVERY 30 MIN PRN, 2 d oses, Starting 04/19/19 at 1144, Until 04/19/19 at 1447, Nausea, May repeat 5 mg once in 30 minutes. If multiple antiemetics ordered, use ondansetron firs t and if ineffective use prochlorperazin e second and if ineffective use promethazine, PACU Recovery, Routine Linked Groups Order Group 1: ondansetron (ZOFRAN) tablet 4-8 mgJump to med 4-8 mg, Oral, EVERY 8 HOURS PRN, Startin g 04/19/19 at 1624, Until Fri04/21/19 at 1651, Nausea, Vomiting
If multiple antiemetics are ordered, use ondansetron first. PO Preferred . If patient unable to take PO, may give IV if ordered. Start with 4mg and if ineffective in 45 minutes, give an additional 4mg. If unable to take PO, may give IV.
Routine Or ondansetron (ZOFRAN) injection 4-8 mgJump to med 4-8 mg, Intravenous, EVERY 8 HOURS PRN, Starting 04/19/19 at 1624, Until 04/21/19 at 1651, Nausea
Start with 4mg and if ineffective in 30 minutes, give an additional 4mg If mu ltiple antiemetics are ordered, give ond ansetron first.
documented in this encounter Care Teams Verifying Machine Operator Relationship Specialty Start Date End Date Ryne Harris MD PCP - General 10/23/10 [address] [place] [address] documented as of this encounter
--- OUTSIDE RECORDS SUMMARY | 2022-07-03 09:03 | XMS_ITS | Encounter Summary ---
:1975 Author Organization [facility] Address [address] [place] [address] Care Team Providers Name Role Phone Ryne Harris MD Primary Care Provider Reason for Visit Auth/Cert Specialty Diagnoses / Procedures Referred By Contact Refer red To Contact Diagnoses communicating artery aneurysm Procedures PRO PERM OCCLUSION/EMBOLIZATION, PERCNARINDER, CHIEF ARCHITECT @[email or web address] OCCLUSION/EMBOLIZATION FOR TUMOR DESTRUCTION Referral ID Status Reason Start Date Expiration Date Visits Requ ested Visits Authorized [id number] 1 1 Encounter Details Date Type Department Care Team Description 04/19/2019 Surgery [facility] Hardeep Lance MD @[email or web address] [facility] OCC LUSION/EMBOLIZATION Drive [place] [address] NEUROSURGERY [phone] [place], [place] [address] (Wo rk) Social History Tobacco [...] Sign Reading Time Taken Comments Blood Pressure 150/86 04/19/2019 6:25 AM EDT Pulse 79 04/19/2019 6:25 AM EDT Temperature 37.3 ??C (99.1 ??F) 04/19/2019 6:25 AM EDT Respiratory Rate 16 04/19/2019 6:25 AM EDT Oxygen Saturation 98% 04/19/2019 6:25 AM EDT Inhaled Oxygen Concentration - - Weight - - Height - - Body Mass Index - - documented in this encounter Discharge Summaries Jacque [...] vertebral artery and ACOM. He underwent coiling stent-life science research assistant coil embolization of ACOM aneurysm on [...] and after the intravenous administration of contrast. Vpwakfbqayar468.0 ml of OMNIPAQUE 350.00 mg/ml. MPRs were [...] aneurysm. IR Embolization Intracranial Result Date: 04/19/2019 [facility] CEREBRAL ANGIOGRAPHY NOTE ? PATIENT NAME: Jaime Guzman : 1975 ? CASE DATE:?04/12/2019 ? ATTENDING:?Hardeep Persaud MD? MOLD FILLING OPERATOR:? Jean Yanez MD; Brandyn Magallanes MD; Yong Quinn MD ?? 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 POSTOPERATIVE DIAGNOSIS: Same ? PROCEDURE: 1) Placement of intracranial stent (NeuroForm Papa[place]ou) for treatment of wide-neck aneurysm 2) Coil [...] aneurysm and the adjacent vasculature. The Neuroform Papa[place]ou stent (3.0x24 mm) was next introduced into the microcatheter. The Neuroform stent was next deployed from the right A2 into the left A1 segment across the aneurysm neck. A subsequent angiogram confirmed good stent coverage of the aneurysm neck. Usingroadmap guidance, we attempted to advance the SL-10 microcatheter across the Papaikou stent into the aneurysm. Because of significant [...] oblique views show proper positioning of the Papaikou stent across the neck of the aneurysm. There is no thrombus formation adjacent to the stent or contrast stagnancy in adjacent vendor analyst vessels. There is no contrast extravasation. ?? [...] ?? : 1) Successful intracranial deployment of Papaikou stent across the ACOM aneurysm from the right A2 toleft A1 JUAN CARLOS segment. 2) Successful coil embolization of ACOM aneurysm. ?? IR Arteriogram Cerebral Result Date: 04/20/2019 [facility] CEREBRAL ANGIOGRAPHY NOTE ? PATIENT NAME:?? Jaime [...] 60 tablet Refills: 3 Miscellaneous Medical Supply [facility] Blood pressure cuff - one Quantity: 1 [...] . Please call the Neurosurgery Office at [phone] if you do not receive a scheduled appointment within two weeks. You will follow-up with: [x] Dr. Persaud [] Dr. Willis Imaging: [x] None [] CT: [] Head [] Neck [] CTA: [] Head [] Neck [] MRA: [] Head [] Neck HOW TO REACH NEUROSURGERY Office Hours: Friday through Friday, 8am-5pm. Call . On weekends or after office hours: Call [phone] and ask the sorting grapple operator to page the NeurosurgeryResident call or contact centre manager. IMPORTANT PHONE NUMBERS: Outpatient Nurse (Coirne Salazar) Inpatient Nurses Neurosurgical Resident On-Call (after 5pm or before 8am) Neurosurgery offices (Friday through Friday between 8am-5pm): Adult Neurosurgery Dr. Tee Gomez Pediatric Neurosurgery Dr. Paul Miguel Associate Providers Larisa Zhou, Nurse Practitioner Paul Samuels, Physician Fire Observer Scott Rose, Nurse Practitioner Jacque Rodriguez, Nurse Practitioner Bette Okeefe, Nurse Practitioner Kaye Gallardo, Nurse Practitioner * Your surgeon may not be agent based modeler, so be ready to tell about yourself and your surgery when you call, especially after hours or on the weekend. Jacque Rodriguez, MIRYAM 04/21/2019 documented in this encounter Discharge Instructions Patient InstructionsWiJacque rivera, RISK CONTROL CONSULTANT - 04/21/2019 12:58 PM EDT ENDOVASCULAR TREATMENT [...] . Please call the Neurosurgery Office at [phone] if you do not receive a scheduled [...] and pt's mother. Questions answered. Implanted medical lab assistant card sent home with patient. PIV removed [...] VA aneurysm. 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 Plan: - q2h neuro checks, VS - monitor groin site for any s/s hematoma or bleeding - follow up ultrasound of R WARDROBE MANAGER to assess pseudoaneurysm - Brillinta and ASA - keep bedrest for now until ultrasound obtained - SBP < 160 - monitor CBC, BMP - ADAT - Follow-up MRA results - DC home today Scott Rose APRN PLEASE PAGE [phone] WITH QUESTIONS Active Hospital Problems Diagnosis ??? [...] 22 159/82 96 % -- -- 04/19/19 2207 36.5 ??C (97.7 ??F) 91 21 123/73 [...] VA aneurysm. 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 Plan: - q2h neuro checks, VS - monitor groin site for any s/s hematoma or bleeding - follow up ultrasound of R WARDROBE MANAGER to assess pseudoaneurysm - will discuss with team and Dr. Persaud re: when to resume Brilinta 2/2 pseudoaneurysm - keep bedrest for now until ultrasound obtained - SBP < 160 - monitor CBC, BMP - ADAT Falguni Garcia, RISK CONTROL CONSULTANT PLEASE PAGE [phone] WITH QUESTIONS Active Hospital Problems Diagnosis ??? Vertebral artery aneurysm Resolved Hospital Problems No resolved problems to display. Active Non-Hospital Problems Diagnosis ??? Brain aneurysm ??? Aneurysm of artery ??? Aneurysm of vertebral artery ??? Intracranial aneurysm ??? Headache Falguni Garcia, MIRYAM 04/20/2019 Pricila Jin RN - 04/20/2019 1:43 [...] site. Pt denying any other symptoms. Jaimie Garcia ELECTRONIC ENGINEERING TECHNICIAN notified, at bedside to assess. Pt given Tylenol to help alleviate pain. Mother at bedside, will continue to monitor. Renae Steele RN - 04/19/2019 12:41 PM EDT 1220 Nursing hand-off from Kelvin, RN for Break coverage. Pt given 0.4 mg [...] Brief description of the procedure: ?? Right WARDROBE MANAGER access, US-guided ?? Right and left ICA [...] PM EDT D/C planning: Team: Neurosurg Pager: [phone] Pt to d/c home via private vehicle. Pt/team feel no d/c needs identified at this time. Bia Castillo MSN, RN CM aerobics instructor Office of Care Management Pager #[phone] Plan of Keegan - Pricila Jin RN - 04/21/2019 6:32 [...] Conf Outcome: Ongoing (Interventions Implemented as Appropriate) 04/21/19 0624 Interdisciplinary Rounds/Family Conf Participants patient;nursing Initial Assessments [...] depression) Substance Use/Abuse: Smoking: denies, quit in Oct18, 20 pack years, EtOH: socially, once every 3 months Illicits: smokes marijuana (helps relax and good for back), daily- will consider CBD oil and think about scaling back Other Pertinent/Service Specific Information: Health/Prescription Coverage: Primary Insurance: CIG[employer] Secondary Insurance: N/A Prescription Coverage: yes Preferred Pharmacy: [facility] Primary Care Provider: Ryne Harris MD [phone] Patient/Caregiver Goals of Treatment: Potential Needs for Transition of Care: Rehab/SNF: TBD Home Health: [place] if required DME: TBD Dialysis: NA Community [...] and assist with transition of care planning. Chaim Johnston MOP MAN Pager: [phone] Plan of Care - Pricila Jin RN [...] Outcome: Ongoing (Interventions Implemented as Appropriate) 04/19/19199904/20/19 043 Safety Interventions Isolation Precautions -- standard precautions maintained Infection Prevention -- rest/sleep promoted Coping Strategies Supportive Measures active listening utilized -- Plan of Care - Alba Pruitt RN - 04/19/2019 5:30 PM EDT Problem: [...] For questions regarding this report, please contact [facility] number below. ? Narrative 04/21/2019 7:50 AM EDT EXAMINATION: MRI [...] report, please contact th e number below. Larisa Zhou RISK CONTROL CONSULTANT IMG MRI ORDERABLES Arterial Duplex Leg, Unil (04/20/2019 8:55 AM EDT) Component Value Ref Test Analysis Performed At [facility] Range Method Time Signature VB Text Department: Vascular Surgery Lab VASCUBASE Report Patient: [id number] (JAIME GUZMAN) CPT: 62924 ICD10: I72.9 Referring Physician: HARDEEP PERSAUD ?? [...] Signature WBC 15.9 (H) 4.0 - 9.5 [facility] x10(3)/[facility] LABORATORY RBC 3.63 (L) 4.58 - [facility] 5.54 [facility] x10(6)/[facility] LABORATORY Hemoglobin 11.7 (L) 13.7 - [facility] 16.5 gm/dL [facility] LAB[facility] Hematocrit 33.8 (L) 40.5 - [facility] 48.5 % [facility] MCV 93.1 82.9 - [facility] 93.1 [facility] LABORATORY MCH 32.2 (H) 27.5 - [facility] 32.1 pg [facility] MCHC 34.6 32.0 - [facility] 35.7 gm/dL [facility] Platelets 275 145 - 357 [facility] x10(3)/[facility] LABORATORY RDWSD 41.8 36.0 - [facility] 45.0 [facility] LABORATORY RDWCV 12.3 11.4 - [facility] [place] 13.8 % [facility] MPV 9.0 7.6 - 12.9 [facility] LABORATORY nRBC % Auto 0.0 % [facility] LABORATORY nRBC Abs Auto 0.000 0.000 - [facility] [place] 0.000 [facility] x10(3)/[facility] LABORATORY Specimen Anatomical Collection Method Collection Time Receive d Time (Source) Location / / Volume Laterality Blood specimen 04/20/2019 6:54 AM 019 7:17 (specimen) EDT AM EDT Resulting Agency Comment Spec In Lab Falguni Garcia RISK CONTROL CONSULTANT HEMATOLOGY ORDERABLES Performing Organization Address City/State/[place] [address] Angiogram Abdomen & [...] report, please contact e number below. ? Narrative 04/20/2019 2:48 AM EDT EXAMINATION: CT [...] and 3-D images were generated on an [employer] workstation. COMPARISON: None FINDINGS: VASCULAR FINDINGS Right: [...] and 3-D images were generated on an [employer] workstation. COMPARISON: None FINDINGS: VASCULAR FINDINGS Right: [...] this report, please contact e number below. Falguni Garcia RISK CONTROL CONSULTANT IMG CT ORDERABLES Green Tube HOLD (04/19/2019 10:35 PM EDT) P athologist Signature Green Hold Sample in [facility] lab. [facility] Specimen Anatomical Collection Method Collection Time Receive d Time (Source) Location / / Volume Laterality Blood specimen Venous Draw / 04/19/2019 10:35 04/19/20 19 (specimen) Unknown PM EDT 10:40 PM EDT Falguni Garcia RISK CONTROL CONSULTANT CHEMISTRY ORDERABLES Performing Organization Address City/State/[place] [address] (ABNORMAL) Hemogram (04/19/2019 10:35 PM EDT) Analysis Performed At Patho logist Time Signature WBC 16.5 (H) 4.0 - 9.5 [facility] x10(3)/[facility] LABORATORY RBC 3.80 (L) 4.58 - [facility] 5.54 [facility] x10(6)/[facility] LABORATORY Hemoglobin 12.3 (L) 13.7 - [facility] 16.5 gm/dL [facility] Hematocrit 34.5 (L) 40.5 - [facility] [place] 48.5 % [facility] MCV 90.8 82.9 - [facility] 93.1 [facility] LABORATORY MCH 32.4 (H) 27.5 - [facility] 32.1 pg [facility] MCHC 35.7 32.0 - [facility] 35.7 gm/dL [facility] Platelets 291 145 - 357 [facility] x10(3)/[facility] LABORATORY RDWSD 40.5 36.0 - [employer] [place] 45.0 [facility] LABORATORY RDWCV 12.4 11.4 - [facility] 13.8 % [facility] MPV 8.8 7.6 - 12.9 [facility] nRBC % Auto 0.0 % [facility] LABOR[facility]ORY nRBC Abs Auto 0.000 0.000 - [employer] 0.000 [facility] x10(3)/[facility] LABORATORY Specimen Anatomical Collection Method Collection Time Receive d Time (Source) Location / / Volume Laterality Blood specimen 04/19/2019 10:35 9 (specimen) PM EDT 10:39 PM EDT Resulting Agency Comment Spec In Lab Falguni Garcia RISK CONTROL CONSULTANT HEMATOLOGY ORDERABLES Performing Organization Address City/State/[place] [address] documented in this encounter Visit Diagnoses Not on filedocumented in this encounter Admitting Diagnoses Diagnosis Vertebral [...] Given 04/19/2019 9:15 PM EDT 650 mg amLODIPine (NORVASC) tablet 10 mg Given 04/21/2019 [...] Given 04/20/2019 11:18 AM EDT 81 mg hydrOXYzine (ATARAX) tablet 25 mg Given 04/20/2019 9:08 PM EDT 25 mg 25 mg, Oral, DAILY PRN, Starting on Fri04/19/19 at 1345, Until Fri04/21/19 at 1651, headaches, Routine Given 04/19/2019 3:14 PM EDT 25 mg lisinopril (PRINIVIL;ZESTRIL) tablet 10 mg Given 04/21/2019 [...] to take PO, may give IV., Routine ticagrelor (BRILINTA) tablet 90 mg Given [...] 04/20/2019 04/21/2019 acetaminophen (TYLENOL) tablet 650 mg 2114 (Given - Pr ovider: Pricila Lang RN) [...] PRN, Startin g Fri04/19/19 at 1237, Until Fri04/19/19 at 1630, [...] Peralta RN) 2108 (Given - Provider: Pricila Jin RN) 25 mg, Oral, DAILY PRN, Starting 04/01 at 1345, Until Fri04/21/19 at 1651, headaches, Routine iohexol (OMNIPAQUE) 350 mg/mL solution 0-200 mL (COMPLETED) 0210 (Given - Provider: Julian Najera) 0-200 mL, Intravenous, ONCE PRN, 1 dose, Starting Fri04/20/19 at 0209, Until Fri04/20/19 at 0210, Per Protocol, Warning Vesicant/Irritant Medication , Radiology Contrast, Routine lidocaine (XYLOCAINE) 10 mg/mL (1 %) injection 3 mg (C OMPLETED) 0642 (Given - Provider: Katlyn Gray, RN) 3 mg (0.3 mL), Subcutaneous, ONCE [...] Oral, EVERY 8 HOURS PRN, Startin g Fri04/19/19 at 1624, Until Fri04/21/19 at 1651, [...] 30 MIN PRN, 2 d oses, Starting Fri04/19/19 at 1144, Until Fri04/19/19 at [...] HOURS PRN, Starting 04/19/19 at 1624, Until Fri04/21/19 at 1651, Nausea
Start with 4mg and if ineffective in 30 minutes, give an additional 4mg If mu ltiple antiemetics are ordered, give ond ansetron first.
documented in this encounter Care Teams Oil Field Pumper Relationship Specialty Start Date End Date Ryne Harris MD PCP - General 10/23/10 [address] [place] [address] documented as of this encounter
--- OUTSIDE RECORDS SUMMARY | 2022-07-03 09:03 | XMS_ITS | Encounter Summary ---
:1975 Author Organization [place] [address] Care Team Providers Name Role Phone Ryne Harris MD Primary Care Provider Reason for Visit Reason Onset Date Comments Post Hospital Discharge 04/22/2019 Encounter Details Date Type Department Care Team Description 04/22/2019 Telephone Neurosurgery at [facility] Larias Celestin, Post [facility] hot air [place] installer [place] [address] Social History Tobacco Use Types Packs/Day [...] this encounter Miscellaneous Notes Telephone Encounter - Larisa Celestin - 04/22/2019 9:29 AM EDT Jaswant Erwin Nice 1975 43 y.o. [id number] F/U call s/p: Pipeline flow-diverter placement Date of Discharge: 04/21/19 Date of Call: 04/22/19 Neuro: alert and oriented: X4 Dizzy or lightheaded: Denies Numbness/tingling/weakness: Denies Ambulation: Normal, steady gait Vision: Normal Speech: Normal Hearing: Normal Incision: puncture site appears WDL, no s/s of infection. Pain: Soreness around incision site, WNL PO: Normal B&B: Normal Sleep: Slept intermittently. Other: All questions and concerns have been addressed documented in this encounter Plan of Treatment Not on filedocumented as of this encounter Visit Diagnoses Not on filedocumented in this encounter Care Teams Order Runner Relationship Specialty Start Date End Date Ryne Harris MD PCP - General 10/23/10 [address] [place] [address] documented as of this encounter
--- OUTSIDE RECORDS SUMMARY | 2022-07-03 09:03 | XMS_ITS | Encounter Summary ---
:1975 Author Organization [facility] [place] [address] Care Team Providers Name Role Phone Ryne Harris MD Primary Care Provider Reason for Visit Reason Onset Date Comments Post Hospital Discharge 04/15/2019 Encounter Details Date Type Department Care Team Description 04/15/2019 Telephone Neurosurgery at [facility] Larisa Celestin, Post [facility] [place] [address] Social History Tobacco Use Types Packs/Day [...] Notes Telephone Encounter - Larisa Celestin - 04/15/2019 12:32 PM EDT Jaswant Erwin Nice 1975 43 y.o. [id number] F/U call s/p: Stent-assistentoil embolization of ACOM aneurysm Date of Discharge: 04/14/19 Date of Call: 04/15/19 Neuro: alert and oriented: X4 Dizzy or lightheaded: Some lightheadedness, states his BP has been a little high 182/101 (10:00) 161/99 (11:00); will continue to monitor and f/u with PCP if it remains high Numbness/tingling/weakness: Denies Ambulation: Normal, steady gait Vision: Normal Speech: Normal Hearing: Normal Incision: puncture site appears WDL, no s/s of infection. Pain: Slight headache, finishing Decadron; discomfort caused by Rhino Rocket; shoulder pain feels the strength is improving PO: Doesn't have much of an appetite, attributes this to the Rhino Rocket. B&B: Good UOP, difficulty with having a BM will add a stool softener this afternoon. Sleep: Slept OK but not great d/t the Rhino Rocket. Other: All questions and concerns have been addressed documented in this encounter Plan of Treatment Not on filedocumented as of this encounter Visit Diagnoses Not on filedocumented in this encounter Care Teams Him Clerk Relationship Specialty Start Date End Date Ryne Harris MD PCP - General 10/23/10 [address] [place] [address] documented as of this encounter
--- OUTSIDE RECORDS SUMMARY | 2022-07-03 09:03 | XMS_ITS | Encounter Summary ---
:1975 Author Organization [facility] [place] [address] Care Team Providers Name Role Phone Ryne Harris MD Primary Care Provider Reason for Visit Reason Comments Follow-up s/p pipeline flow diverter p lacement Encounter Details Date Type Department Care Team Description 05/20/2019 Office [address]surgery at [facility] Nikolas Persaud MD Cerebral aneurysm [facility] [place] [address] NEUROSURGERY [place], [place] [address] (Wo rk) Social History Tobacco [...] Sign Reading Time Taken Comments Blood Pressure 138/82 05/20/2019 3:37 PM EDT Pulse 90 05/20/2019 3:37 PM EDT Temperature - - Respiratory Rate - - Oxygen Saturation - - Inhaled Oxygen Concentration - - Weight - - Height - - Body Mass Index - - documented in this encounter Progress Notes Nikolas Perasud MD - 05/20/2019 3:40 PM EDT Neurosurgery Clinic Note Patient Jaswant Nice 1975 DATE OF VISIT: 05/20/2019 REASON FOR VISIT: Followup s/p endovascular treatment of intracranial aneurysms SUBJECTIVE: I saw Jaswant Nice at the neurosurgery clinic for a routine follow-up since stent-coiling of an ACOM aneurysm and 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 The procedures were uneventful and the patient presents to clinic today at his neurologic baseline. On today's visit, he reports impro vement in his overall headache profile. He denies headaches at night and usually has headaches late in the day after he returns from work. He denies blurry or double vision. He denies light sensitivity. The patient reports no weakness in his extremities. He continues on Aspirin 81 mg twice daily and Brilinta 90 mg twice daily. OBJECTIVE: BP 138/82 Pulse 90 No acute distress Awake, Alert, Interactive Pupils equal and reactive Extraocular movements intact No drift Moving all extremities with full strength Gait: Unremarkable CURRENT MEDICATIONS: Miscellaneous Medical Supply, acetaminophen, amLODIPine, amitriptyline, aspirin, hydrOXYzine, lisinopril, melatonin, and ticagrelor ASSESSMENT: 43 y.o. male s/p endovascular repair of intracranial aneurysms. I reviewed the treatment angiograms and post-procedure MRA with the patient. I recommended strict adherence to his current prescribed aspirin and Brilinta regimen to avoid stroke. We will coordinate a follow-up visit in 4-6 months with anMRA brain followed by a DSA to evaluate his aneurysms. PLAN: 1) Follow-up in 4-6 months with MRA brain 2) Plan for DSA at 6-months I spent 15 minutes of this 15??minute encounter in face to face contact counseling the patient and addressing specific questions. At the conclusion of our discussion he indicated that he had no furtherquestions. The patient understands to contact neurosurgery or seek emergent help with any acute worse tyrell of neurologic symptoms. ?? -- Nikolas Persaud MD PhD Section of Neurosurgery Department of Surgery [facility] documented in this encounter Plan of Treatment Not on filedocumented as of this encounter Visit Diagnoses Diagnosis Cerebral aneurysm Cerebral aneurysm, nonruptured documented in this encounter Care Teams Patent Engineer Relationship Specialty Start Date End Date Ryne Harris MD PCP - General 10/23/10 [address] [place] [address] documented as of this encounter
--- OUTSIDE RECORDS SUMMARY | 2022-07-03 09:03 | XMS_ITS | Encounter Summary ---
:1975 Author Organization [facility] [place] [address] Care Team Providers Name Role Phone Ryne Harris MD Primary Care Provider Reason for Referral Physical Therapy (Routine) - Closed Specialty Diagnoses / Procedures Referred By Contact Refer red To Contact Physical Therapy Diagnoses Chronic migraine without aura without status migrainosus, not intractable Dejon Dey [facility] [address] [place], [place] NEUROLOGY DEPT [address] [place] [address] Referral ID Status Reason Start Date Expiration Date Visits V isits Requested Authorized [id number] Closed Evaluate and 05/19/2019 05/18/2020 12 12 Treat iagnostic Test (Routine) - Closed Specialty Diagnoses / Procedures Referred By Contact Refer red To Contact Radiology Diagnoses Chronic migraine without aura without status migrainosus, not intractable Deojn Dey MD [facility] Rad Mri Procedures MRI Brain wo Contrast [facility] [place] [address] [place] [address] Referral ID Status Reason Start Date Expiration Date Visits V isits Requested Authorized [id number] Closed Specialty 08/13/2019 11/11/2019 1 1 Service Requested Encounter Details Date Type Department Care Team Description 05/19/2019 Office Visit Neurology at [facility] Ghassan Steven MD [facility] [place] [address] Chronic migraine without aura without st atus migrainosus, not intractable; [facility] Dejon Dey MD [facility] [place] [address] [address] Social History Tobacco Use Types Packs/Day Years [...] Sign Reading Time Taken Comments Blood Pressure 132/85 05/19/2019 3:08 PM EDT Pulse 96 05/19/2019 3:08 PM EDT Temperature - - Respiratory Rate - - Oxygen Saturation - - Inhaled Oxygen Concentration - - Weight 116.6 kg (257 lb) 05/19/2019 3:08 PM EDT Height 177.8 cm (5' 10) 05/19/2019 3:08 PM EDT reporte d Body Mass Index 36.88 05/19/2019 3:08 PM EDT documented in this encounter Progress Notes Dejon Dey MD - 05/19/2019 3:00 PM EDT Neurology Outpatient Clinic - 05/19/2019 Patient name: Jaswant Nice Date of : 1975 PCP: Ryne Harris MD Clinic Attending: Dr. Ghassan Steven MD CC: post hospital follow up (03/13/19-03/18/19) HPI: Jaswant Nice is a 43 y.o.??left??handed male??with a PMH of migraines??(as a teenager), s/p lumbar fusion (L5-S1), HTN who was Hospitalized with [facility] neurology service on 03/13/2019 until 03/18/2019. Initially presented as a transfer from [facility] for evaluation of new onset severe headache and left-sided weakness. CT head unremarkable. 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 MRI not completed because of spinal nerve stimulator. Lumbar puncture showed normalroutine studies. EEG was unremarkable. During hospitalization his headaches would correlate with blood pressure spikes, anxiety, diaphoresis and for this reason pheochromocytoma was ruled out with 24-hour urine catecholamines, metanephrines and serum catecholamines metanephrines. He was discharged on amlodipine 10 mg and lisinopril 10 mg. He underwent coiling stent-food and nutrition services assistant coil embolization of ACOM aneurysm on 04/15/19 and pipeline flow diverter placement on 04/19 for his right vertebral artery aneurysm and was discharged on ASA and Brilinta. Interval Hx: -He continues his blood pressure medications and has followed up with his PCP who is happy with his current regimen - He monitors his blood pressure routinely and has not noticed any correlation with his headaches. -After his discharge from neurology service on 03/19 she had continued to have a headache continuously until about May 02. His headache waxed and waned throughout the day with no particular time being worse. He was treating with Tylenol multiple times throughout the day. There was his same persistent mi graine-like headache, with photophobia and phonophobia and no nausea or vomiting this time. He did not notice a correlation with high blood pressure either. - His headaches slowly improved over the weeks and then on May 02 was the first day he woke up without a headache. 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 The headache starts in his neck and then radiates to the frontof his head with a bilateral throbbing nature but more severe on the right. No blurred vision, loss of vision, numbness or tingling, weakness. No positional component. -He then takes Tylenol usually between 4 to 6 PM which takes the edge off then Atarax a couple hourslater which dulls the headache even more and then he falls asleep and feels better the next morning. - He denies any pain radiating down his neck or down his arms. - He does report he often has a stiff neck and that several years ago he used to use tennis balls onthe back of his head to help treat migraines. Past Medical & Surgical History: Patient Active [...] IR Arteriogram Cerebral 03/25/2019 Nikolas Persaud MD [facility] INTERVENTIONL RAD ??? IR EMBOLIZATION INTRACRANIAL 04/12/2019 IR Embolization Intracranial 04/12/2019 Nikolas Persaud MD [facility] RAD ??? IR EMBOLIZATION INTRACRANIAL 04/19/2019 IR Embolization Intracranial 04/19/2019 Nikolas Persaud MD [facility] INTERVENT[facility] RAD ??? PRO PERM OCCLUSION/EMBOLIZATION, PERCUT, SHOP TAILOR N/A 04/12/2019 @TRANSCATHETER OCCLUSION/EMBOLIZATION FOR TUMOR DESTRUCTION performed by Nikolas Persaud MD at [facility] [place] ??? PRO PERM OCCLUSION/EMBOLIZATION, PERCUT, SHOP TAILOR N/A 04/19/2019 @TRANSCATHETER OCCLUSION/EMBOLIZATION FOR TUMOR DESTRUCTION performed by Nikolas Persaud MD at [facility] [place] ??? XR FLUORO LUMBAR PUNCTURE DIAGNOSIS N/A 03/13/2019 XR Fluoro Lumbar Puncture 03/13/2019 [facility] RAD XRAY Medications: Current Outpatient Medications on File Prior to Visit Medication Sig Dispense Refill ??? aspirin 81 mg Tablet, Chewable Take 162 mg by mouth daily. 30 tablet 0 ??? ticagrelor (BRILINTA) 90 mg Tablet Take 1 tablet by mouth 2 times daily. 60 tablet 3 ??? acetaminophen (TYLENOL) 325 [...] 60 tablet 3 ??? Miscellaneous Medical Supply [facility] Blood pressure cuff - one 1 each 0 No current facility-administered medications on file prior to visit. Allergy: Allergies Allergen Reactions ??? Toradol [Ketorolac] Shortness Of Breath Family History: No family history on file. Social History: Social History Socioeconomic History ??? [...] Last attempt to quit: 11/26/2018 Years since quittin.4 ??? Smokeless tobacco: Never Used Substance and [...] file Gets together: Not on file Attends moravian service: Not on file Active member of [...] ??? Not on file Review of systems: Constitutional: No fevers or chills Eyes: No vision changes, no diplopia, no blurry vision ENT: No rhinorrhea or pharyngitis, no meningismus CV: No chest pain or palpitations Resp: No cough, no shortness of breath GI: No nausea, vomiting, diarrhea or constipation : No dysuria, no incontinence Heme: No bleeding or bruising Endo: No polyuria or cold intolerance Neuro: See HPI Psych: No depression, normal sleep [x] Review of systems otherwise negative Physical Exam: Vitals: Temp: -- Heart Rate: [96] Resp: -- BP: (132)/(85) SpO2: -- Heart Rate from SpO2: -- Gen: Apparent stated age, well nourished, well developed, awake, alert, NAD Neck: Supple, no meningismus, no carotid bruit, bilateral occipital tenderness (R>L) HEENT: MMM CV: S1, S2, RRR, no [...] L Elbow flexion 5/5 R, 5/5 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 Stable. Negative Romberg. Labs: No results found for this or any previous visit (from the past 24 hour(s)). Diagnostic Tests and Imaging: Assessment / Plan: Jaswant Nice is a 43 y.o.??left??handed male??with a PMH of migraines??(as a teenager), lumbar fusion(L5-S1), HTN ACOM and R VA aneurysm (s/p coiling and diversion 04/18) who was Hospitalized with [facility] neurology service on 03/13/2019 until 03/18/2019. Initially presented as a transfer from [facility] for evaluation of new onset severe headache and left-sided weakness. 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 MRI not completed because of spinal nerve stimulator. Lumbar puncture and EEG were unremarkable. EGAN's correlated with BP spikes and thus pheochromocytoma was also ruled out. He was discharged on amlodipine 10 mg and lisinopril 10 mg. He underwent coiling stent-food and nutrition services assistant coil embolization of ACOM aneurysm on 04/15/19 and pipeline flow diverter placement on 04/19 for his right vertebral artery aneurysm and was discharged on ASA and Brilinta. Jaswant continues to suffer from daily headaches (>15 headache days per month) which are likely multifactorial. He has chronic migraine without aura and with a cervicogenic component. He also has medication overuse headache from his daily Tylenol use. On exam today he did have significant occipital tenderness tenderness and is headache while in clinic was at a 5/10 in pain. I did perform an occipitalnerve block which he already started to feel immediate relief from his headache. Today I counseled Jaswant on the importance of discontinuing the Tylenol and allowing for a washout. Asmedication overuse headache is contributing to his persistent headaches. I also counseled him on neck exercises and attending physical therapy as this can be triggering his migraines as well. We plan to start migraine prophylaxis, physical therapy, and discontinuation of Tylenol for at least 2 weeks and then limiting use to 2-3 times a week. We will also order an MRI brain without contrast to complete his vascular and headache work-up as now we have discovered there is no contraindication to MRI despite his spinal cord stimulator. #Chronic migraine without aura #Medication overuse headache - MRI brain without contrast -Occipital nerve block done today in clinic (with immediate positive results) - Continue hydroxyzine 25 mg 3 times daily as needed for headache - Discontinue Tylenol for at least 2 weeks then can resume up to 2-3 times a week as needed - Start amitriptyline 10 mg nightly for migraine prophylaxis (will call us with an update in a monthat which point we can uptitrate if he is tolerating the medication fine) - Referral to physical therapy for neck exercises - Recommended going for an annual eye exam as vision screen is often a headache generator as well and he has not had a checkup in a few years. - We considered propanolol as migraine prophylaxis for the dual benefit of blood pressure coverage but he is already on 2 antihypertensives so will not make this change now (but PCP can consider this in the future) Follow-up: 3 months or sooner if needed Case was discussed with MD Dejon Cortés MD Neurology Resident, PGY2 05/19/2019 I have reviewed the resident's above history and I agree with the details as written. The assessmentand plan were formulated in discussion with me and I agree with them as documented. Ghassan Steven MD Dejon Dey MD - 05/19/2019 3:00 PM EDT Procedure Note Procedure Note Procedure: Bilateral Greater Occipital Nerve Blocks Indication: Headache with occipital/cervical tenderness Consent: Indication, risks, benefits, and alternatives discussed with patient, including risk of bleeding, infection, permanent numbness, and medication reaction. Written consent signed by patient on 05/19/19 and is good for 1 year Location: The greater occipital nerve was located by first palpating the mastoid and midline occipital ridge. The nerve was palpated at 2/3 the distance to the occipital ridge. It was coincident with maximal tenderness Medication: 50/50 mixture of 1% lidocaine and 0.25% bupivacaine Technique: The area was cleansed with 2 alcohol swabs while using clear gloves. Using a 3 cc syringeand a 25 guage 5/8 inch needle, 3 cc of the medication mixture was injected into multiple tissue planes in the area around each greater occipital nerve. Prior to each injection the plunger was drawn back to ensure that the needle was not in a blood vessel. The patient tolerated the procedure well. Complications: None Blood loss: <1 cc Dejon Dey MD Neurology Resident PGY-2 05/20/19 documented in this encounter Plan of Treatment Scheduled Referrals Name Type Priority Associated Diagnoses Order S chedule Referral to Outpatient Referral Routine Chronic migraine Orde red: Physical Therapy without aura without status migrainosus, not intractable documented as of this encounter Results MRI Brain wo Contrast [...] please contact e number below. ? Narrative 08/24/2019 3:27 PM [...] contact e number below. Ghassan Steven MD [facility] MRI ORDERABLES documented in this encounter Visit Diagnoses Diagnosis Chronic migraine without aura without st atus migrainosus, not intractable Chronic migraine without aura, without m ention of intractable migraine without mention of status migrainosus Medication overuse headache Drug induced headache, not elsewhere cla ssified Chronic migraine without aura without st atus migrainosus, not intractable Chronic migraine without aura, without m ention of intractable migraine without mention of status migrainosus documented in this encounter Administered Medications Inactive Administered Medications - up to 3 most recent administrations Medication Order MAR Action Action Date Dose Rate Site BUpivacaine (PF) (MARCAINE) 0.25 % Given 05/19/2019 4:30 PM EDT 3 mg (2.5 mg/mL) injection 3 mg 3 mg, Subcutaneous, ONCE, 1 dose, On Fri05/19/19 at 1630, Routine lidocaine (XYLOCAINE) 10 mg/mL (1 %) injection Given 0 05/19/2019 4:30 PM EDT 30 mg 30 mg 30 mg (3 mL), Subcutaneous, ONCE, 1 dose, On Fri05/19/19 at 1630, Routine documented in this encounter Care Teams 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
--- OUTSIDE RECORDS SUMMARY | 2022-07-03 09:03 | XMS_ITS | Encounter Summary ---
:1975 Author Organization [facility] [place] [address] Care Team Providers Name Role Phone Ryne Harris MD Primary Care Provider Reason for Referral Diagnostic Test (Routine) - Closed Specialty Diagnoses / Procedures Referred By Contact Refer red To Contact Radiology Diagnoses Cerebral aneurysm [facility] [address] [place] [address] Interventionl Rad Procedures [place] [address] [place] [address] Phone: Fax: Referral ID Status Reason Start Date Expiration Date Visits V isits Requested Authorized [id number] Closed Specialty 03/26/2019 03/25/2020 1 1 Service Requested Reason for Visit Auth/Cert Specialty Diagnoses / Procedures Referred By Contact Refer red To Contact Diagnoses communicating artery aneurysm Procedures PRO PERM OCCLUSION/EMBOLIZATION, PERCUT, SUPERVISOR BUILDING MAINTENANCE @TRANSCATHETER OCCLUSION/EMBOLIZATION FOR TUMOR DESTRUCTION Referral ID Status Reason Start Date Expiration Date Visits Requ ested Visits Authorized [id number] 1 1 Encounter Details Date Type Department Care Team Description 04/19/2019 Hospital Encounter Radiology at [facility] Nikolas Persaud MD Cerebral aneurysm [facility] [address] [place] [facility] [address] [place] [address] [phone] Social History Tobacco Use Types Packs/Day Years [...] pressure cuff 1 each 0 03/18 Supply [facility] - one ticagrelor (BRILINTA) 90 Take 1 tablet by 60 tablet 3 04/1408/25/2019 mg Tablet mouth 2 times daily. amoxicillin-clavulanate Take 1 tablet by 6 tablet 0 201804/21/2019 (AUGMENTIN) 875-125 mg mouth 2 times daily. Tablet dexamethasone (DECADRON) Take 1 tablet by 2 tablet 0 04/1404/21/2019 4 mg Tablet mouth 2 times daily. methocarbamol (ROBAXIN) Take 1 tablet by 10 tablet 0 201804/21/2019 500 mg Tablet mouth every 8 hours. oxyCODONE (ROXICODONE) 5 Take 1 tablet by 10 tablet 0 04/1404/21/2019 mg Tablet mouth every 6 hours as needed for Pain. aspirin 81 mg Tablet, Take 81 mg by mouth 30 tablet 3 03/2704/21/2019 Chewable daily. documented as of this encounter Progress Notes Brandyn Magallanes MD - 04/19/2019 7:05 AM EDT INTERVENTIONAL RADIOLOGY FOCUSED H&P and PRE-PROCEDURE NOTE: PCP: Ryne Harris MD Referring Provider: Nikolas Persaud Planned Procedure: Cerebral angiography and treatment of right vertebral artery aneurysm Procedure Indication: Right vertebral artery aneurysm Presenting Diagnosis/ Complaint: Jaswant Nice is a 43 y.o. 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 Patient's ACOM aneurysm was embolized 04/12. Returns today for pipeline stent placement across fusiform right vertebral artery aneurysm. Endorses severe diffuse headache with 8/10 pain yesterday, somewhat better today. Past Medical/Surgical History: Patient Active Problem List Diagnosis Code ??? Headache R51 ??? 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 Intracranial aneurysm I67.1 ??? Aneurysm of artery I72.9 ??? Brain aneurysm I67.1 Past Medical History: Diagnosis Date ??? 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 Headache 03/13/2019 ??? Intracranial aneurysm 03/24/2019 Past Surgical History: Procedure Laterality Date ??? IR EMBOLIZATION INTRACRANIAL 04/12/2019 IR Embolization Intracranial 04/12/2019 Nikolas Persaud MD [facility] INTERVENTIONL RAD ??? PRO PERM OCCLUSION/EMBOLIZATION, PERCUT, SUPERVISOR BUILDING MAINTENANCE N/A 04/12/2019 @TRANSCATHETER OCCLUSION/EMBOLIZATION FOR TUMOR DESTRUCTION performed by Nikolas Persaud MD at [facility] ??? XR FLUORO LUMBAR PUNCTURE DIAGNOSIS N/A 03/13/2019 XR Fluoro Lumbar Puncture 03/13/2019 [facility] RAD XRAY Medications: Current Facility-Administered Medications on File Prior to Encounter Medication Dose Route Frequency Provider Last Rate Last Dose ??? sodium chloride 0.9 % flush 5-20 mL 5-20 mL Intravenous Q1 Min PRN Jamie Garcia MD ??? [COMPLETED] lidocaine (XYLOCAINE) 10 mg/mL (1 %) injection 3 mg 0.3 mL Subcutaneous Once PRN Jamie Garcia MD 3 mg at 04/19/19 0642 ??? lactated ringers infusion 1,000 mL Intravenous Continuous Jamie Garcia MD 100 mL/hr at 04/19/19 0645 1,000 mL at 04/19/19 0645 Current Outpatient Medications on File Prior to Encounter Medication Sig Dispense Refill ??? ticagrelor (BRILINTA) 90 mg Tablet Take 1 tablet by mouth 2 times daily. 60 tablet 3 ??? amoxicillin-clavulanate (AUGMENTIN) 875-125 mg Tablet Take 1 tablet by mouth 2 times daily. 6 tablet 0 ??? dexamethasone (DECADRON) 4 mg Tablet Take 1 tablet by mouth 2 times daily. 2 tablet 0 ??? methocarbamol (ROBAXIN) 500 mg Tablet Take 1 tablet by mouth every 8 hours. 10 tablet 0 ??? oxyCODONE (ROXICODONE) 5 mg Tablet Take 1 tablet by mouth every 6 hours as needed for Pain. 10 tablet 0 ??? acetaminophen (TYLENOL) 325 mg Tablet Take 650 mg by mouth every 4 hours as needed for Pain. ??? aspirin 81 mg Tablet, Chewable Take 81 mg by mouth daily. 30 tablet 3 ??? amLODIPine (NORVASC) 10 mg Tablet Take [...] 60 tablet 3 ??? Miscellaneous Medical Supply [facility] Blood pressure cuff - one 1 each 0 Allergies: Toradol [ketorolac] Social History and Habits: [...] Years: 20.00 Pack years: 20.00 Types: Cigarettes ??? Smokeless tobacco: Never Used Substance and Sexual Activity ??? Alcohol use: Not Currently ??? Drug use: Yes Frequency: 7.0 times per week Types: Marijuana ??? Sexual activity: Not on file Lifestyle ??? Physical activity: Days per week: Not on file Minutes per session: Not on file ??? Stress: Not on file Relationships ??? Social connections: Talks on phone: Not on file Gets together: Not on file Attends mandaen service: Not on file Active member of [...] Labs: Lab Results Component Value Date WBC 8.7 03/26/2019 HCT 40.8 03/26/2019 PLATELET 233 03/26/2019 INR 1.0 03/24/2019 BUN 12 03/26/2019 CREATININE 0.64 (L) 03/26/2019 ALKPHOS 54 03/16/2019 AST 22 03/16/2019 ALBUMIN 3.7 03/16/2019 BILIDIR 0.1 03/15/2019 BILITOT 0.2 03/16/2019 ALT 43 03/16/2019 PROT 6.2 03/16/2019 Imaging: see EMR Physical Exam: : Cardiovascular: Regular, Normal Abdomen: soft, nontender Vascular: 2+ right femoral pulse, no JVD Neuro: sensory intact integrated circuit ic layout designer grosssly intact shoulder abduction, hip flexors, plantar flexion intact no dysmetria or pronator drift speech fluent Assessment: 43 y.o. 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 ?? Plan: Treatment of right vertebral artery aneurysm - R COUNCIL ON AGING DIRECTOR access - procedure with Anesthesia 04/19/2019 Brandyn Magallanes MD - 04/19/2019 7:00 AM EDT INTERVENTIONAL RADIOLOGY FOCUSED H&P: Procedure: The patient's history and physical exam have been reviewed and completed. There has been no intervalchange from that of the pre-operative history and physical exam done within the last 30 days. Physical Exam: Cardiovascular: Regular, Normal Abdomen: soft, nontender Vascular: 2+ right femoral pulse, no JVD Neuro: sensory intact integrated circuit ic layout designer grosssly intact shoulder abduction, hip flexors, plantar flexion intact no dysmetria or pronator drift speech fluent The planned procedure (and sedation plan if appropriate) , its benefits and risks, and alternatives were discussed with the patient. The patient consented to the procedure. documented in this encounter Plan of Treatment Not on filedocumented as of this encounter Procedures Procedure Name Priority Date/Time Associated Comments Diagnosis IR EMBOLIZATION Routine 04/19/2019 11:56 Cerebral aneurysm Res ults for this INTRACRANIAL AM EDT procedure are i n the results section. documented in this encounter Results IR Embolization Intracranial (04/19/2019 11:56 AM EDT) Anatomical Region Laterality Modality Head X-Ray Angiography Specimen (Source) Anatomical Location Collection Method / Collectio n Time Received Time / Laterality Volume Impressions 05/03/2019 11:28 AM EDT : Successful placement of Pipeline flow di verter for treatment of right vertebral artery aneurysm. Attending attestations: I was present during the intra-service t dee dee as documented by the IR Nurse I was the attending physician supervisin g the assistants in the above care and I was present with the assistants fo r the entire procedure. Narrative 05/03/2019 11:[address] [facility] CEREBRAL ANGIOGRAPHY NOTE ? PATIENT NAME:? Jaswant Nice :? 1975 MRN: ? [id number] ?? CASE DATE:? 04/19/2019 ? ATTENDING: ? Nikolas Persaud MD? ASSISTANTS: ? Jean Yanez MD; Brandyn Magallanes MD PREOPERATIVE DIAGNOSIS: Right vertebral artery aneurysm ? POSTOPERATIVE DIAGNOSIS: Same ?? PROCEDURE: Diagnostic cerebral angiogramEmbolizatio n of unruptured intracranial right vertebral artery fusiform aneurysm with Pipeline flow diverter stent Femoral artery ultrasound for arterial a ccess ?? ANESTHETIC: General ? INDICATIONS: This 43 y.o. male recently underwent rashid nt-assisted coiling of an ACOM aneurysm. ??He presents today for treatm ent of his unruptured vertebral artery aneurysm. ??Risks, benefits, and alternatives to flow-diverter treatment of the aneurysm were discussed in detail with the patient. ?? Risks of stroke, hemorrhage, contrast re action, renal failure, radiation exposure, delayed effects of radiation, need for additional treatment, and lack of benefit from the treatment were discussed with the patient. ??He understood all risks and was eager to pr oceed with treatment. ? DESCRIPTION OF PROCEDURE: The patient was brought to the angiograp hy suite and was intubated by the anesthesia team. ??Bilateral femoral reg ions were prepped and then sterilely draped. ??A timeout was perfor med. ??Using ultrasound guidance, the right femoral artery was identified and??accessed with a micropuncture kit. ??A 6Fr NeuronMax sheath was then i nserted without complication and connected to a constant heparinized drip . ? A 5Fr Usama diagnostic catheter was adva nced into the sheath over a 0.035 Glidewire. ??The catheter was brought ov er the aortic arch and the left common carotid artery was selected. ??Th e left ICA was selected with roadmap guidance. ??An angiogram was nex t performed with intracranial AP and lateral views. ??The catheter was ne xt withdrawn and advanced towards the right subclavian artery. ??A roadmap was obtained and the right vertebral artery was selected. ??The Cecilio ronMax catheter was co-axially advanced over the Usama catheter into e right VA. ??An angiogram was next performed to get intracranial AP and lat eral views. ??The working views giving the best projection of the aneury sm parent vessel were next obtained with high magnification fluoros ocpy. ??A baseline ACT was obtained and the patient was given a weight-based bolus of heparin. ??ACT values were subsequently drawn by anesthesia to confirm full heparinization. ?? A roadmap was obtained of the cervical a nd intracranial VA from the NeuronMax guide catheter. ??The InboxQom P raheel intermediate catheter was next advanced over the Phenom microcatheter a nd Synchro-2 microwire assembly. ?? The microcatheter was advanced to the wy d-basilar artery. ??A 4.25 mm x 16 mm Pipeline flow diverter stent was next advanced into the microcatheter and deployed into the vertebral artery a cross the fusiform segment of the VA. ??There was good apposition of the d evice in the proximal and distal segments to the VA. ??The micro- and int ermediate catheters were next removed. ??Subsequent angiograms from e guide catheter showed no distal branch vessel occlusion, filling defects within the stent or other untoward findings. ?? The NeuronMax catheter was next brought down to the level of the right external iliac artery. ??A subsequent an giogram showed the puncture site to be above the bifurcation and below the i nferior epigastric vessel. ??The puncture site was then closed with the A ngioSeal closure device. ??There was good hemostasis after deploying the closure device. ??There were no complications during the procedure. ?? e patient was extubated at the end of the procedure and taken to the recove ry room at her neurologic baseline. ?? FINDINGS: Left internal carotid artery angiogram: ??AP and lateral views show the intracranial ICA??segment and branches t o have a normal course and caliber. The MCA and JUAN CARLOS branches fill briskly. ? ?There is no filling of the previously coiled ACOM aneurysm. ??There is no evidence of stenosis or contrast stagnation across the stent. ?? There is evidence of contrast washout from the right JUAN CARLOS. ?? Right vertebral artery angiogram: ??AP a nd lateral views show normal arterial, capillary, and venous opacific ation in the posterior circulation. There is a fusiform aneurys m just distal to the PICA in the intradural right vertebral artery. Right vertebral artery angiogram (during Pipeline stent deployment): ??High magnification oblique views show good po sitioning of the stent from the level of the anterior spinal artery acro ss the aneurysm neck. ??There is no vessel occlusion or thrombus formation. ?? Right vertebral artery angiogram (post P ipeline stent deployment): ??AP and lateral views show evidence of flow dive rsion across the VA aneurysm with delayed filling and washout of contrast from the aneurysm. ??The intracranial vessels fill briskly withou t contrast stasis or thrombus formation. ??There is no evidence of thr ombus formation within the stent. ?? The anterior spinal artery remains paten t without changes in flow. ?? Nikolas Persaud MD IMG IR ORDERABLES documented in this encounter Visit Diagnoses Diagnosis Cerebral aneurysm Cerebral aneurysm, nonruptured documented in this encounter Administered Medications Inactive Administered Medications - up to 3 most recent administrations Medication Order MAR Action Action Date Dose Rate Site iodixanol (VISIPAQUE) 320 mg Given 04/19/2019 11:56 AM EDT 100 m Ls iodine/mL injection 150 mL 150 mL, Intra-arterial, ONCE PRN, 1 dose, Starting on 04/19/19 at 1156, Until Fri04/19/19 at 1156, Per Protocol, Angio/IR (Intra-Procedure), Routine documented in this encounter Care Teams Customer Service Trainer Relationship Specialty Start Date End Date Ryne Harris MD PCP - General 10/23/10 [address] [place] [address] documented as of this encounter
--- OUTSIDE RECORDS SUMMARY | 2022-07-03 09:03 | XMS_ITS | Encounter Summary ---
:1975 Author Organization [facility] [place] [address] Care Team Providers Name Role Phone Ryne Harris MD Primary Care Provider Reason for Referral Consultation (Routine) - Canceled Specialty Diagnoses / Procedures Referred By Contact Refer red To Contact Orthopaedics Diagnoses Bilateral shoulder pain Scott Rose APRN [facility] [address] [place] [id number] [place] [address] Fax: Referral ID Status Reason Start Date Expiration Date Visits V isits Requested Authorized [id number] Canceled Consult, 04/14/2019 04/13/2020 1 1 Test & Treat Reason for Visit Auth/Cert Specialty Diagnoses / Procedures Referred By Contact Refer red To Contact Diagnoses right vertebral artery fusiform aneurysm Procedures PRO PERM OCCLUSION/EMBOLIZATION, PERCUT, RECYCLING CREW SUPERVISOR @TRANSCATHETER OCCLUSION/EMBOLIZATION FOR TUMOR DESTRUCTION Referral ID Status Reason Start Date Expiration Date Visits Requ ested Visits Authorized [id number] 1 1 Encounter Details Date Type Department Care Team Description 04/12/2019 - Hospital Neuroscience Special Hung, Naser, Acute nonintractable headache, unspecified headache type; 04/14/2019 Encounter Care Unit Lola NIÑO Aneurysm of vertebral artery [facility] [place] [id number] [phone] Social History Tobacco Use Types Packs/Day Years [...] Sign Reading Time Taken Comments Blood Pressure 141/66 04/14/2019 12:00 PM EDT Pulse 88 04/14/2019 8:00 AM EDT Temperature 36.7 ??C (98.1 ??F) 04/14/2019 11:58 AM EDT Respiratory Rate 18 04/14/2019 12:00 PM EDT Oxygen Saturation 96% 04/14/2019 12:00 PM EDT Inhaled Oxygen Concentration - - Weight 112 kg (247 lb) 04/12/2019 6:20 AM EDT Height 177.8 cm (5' 10) 04/12/2019 6:20 AM EDT Body Mass Index 35.44 04/12/2019 6:20 AM EDT documented in this encounter Discharge Summaries Scott Rose APRN - 04/14/2019 11:41 AM EDT Patient Name: Jaswant Nice Patient Age: 43 y.o. Admit date: 04/12/2019 Discharge Date and Time: 04/14/2019 Attending Physician: Nikolas Persaud MD Discharging Provider: Scott Rose APRN Discharging Service: NEUROSURGERY Operations/Major Procedures: 1) Stent-assistentoil embolization of ACOM aneurysm Nikolas Persaud MD - 04/12/19 Active Hospital Problems: Active Hospital Problems Diagnosis ??? Brain aneurysm Resolved Hospital Problems No resolved problems to display. Active Non Hospital Problems: Active Non-Hospital Problems Diagnosis ??? Aneurysm of artery ??? Aneurysm of vertebral artery ??? Intracranial aneurysm ??? Headache History of Presentation: Per review of relevant records: Jaswant Nice is a 43 y.o. 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 He was admitted [place] [facility] [place] Stent-drafter assistant coil embolization of ACOM aneurysm. Hospital Course: Jaswant Nice underwent a stent-assistentoil embolization of ACOM aneurysm on 04/12/[address] Persaud. He tolerated the procedure well and there were no reported intraoperative complications, apart from epistaxis detailed below, however the operative note was not available prior to discharge. Patient had left sided epistaxis intraoperative with placement a small bore NG tube. ENT was consulted for management. A flexible suction catheter was used to clear the left nare and a Rhino Rocket wasplaced and inflated with good effect per ENT. The patient will have his Rhino Rocket removed Monday 04/16 and will be continued on Augmentin until it's removal. The patient was also started on decadron for 3 days for headache management, he will complete his last day at home. He was transitioned to Brillinta as he was a Plavix non responder. Patient has bilateral shoulder pain postoperatively. His pain in his shoulder is limiting his movement and he appears to be limited to his rotator cuffs bilaterally. Dr. Persaud has requested to patientbe seen by orthopaedics as an outpatient and a referral has been placed. Patient has remained neurologically stable during the hospitalization. Patient was deemed safe for discharge home. On the day of discharge he is tolerating a regular diet, ambulating, voiding spontaneously, and his pain is controlled with oral medications. Patient will be discharged with opioid pain medication for acute pain. Safety education regarding opioids was provided and an opioid consent was signed. He will also be discharged with muscle relaxers for his shoulder pain. Important Studies and Lab Data: Labs: Lab Results Component Value Date/Time WBC 8.7 03/26/2019 12:15 AM HGB 14.1 03/26/2019 12:15 AM HCT 40.8 03/26/2019 12:15 AM PLATELET 233 03/26/2019 12:15 AM NA 141 03/26/2019 12:15 AM K 3.6 03/26/2019 12:15 AM CL 106 03/26/2019 12:15 AM CO2 25 03/26/2019 12:15 AM BUN 12 03/26/2019 12:15 AM CREATININE 0.64 (L) 03/26/2019 12:15 AM Studies: XR Chest Pa Or Ap 1 View Result Date: 03/15/2019 EXAMINATION: XR CHEST PA OR AP 1 VIEW CLINICAL HISTORY: assess for airway narrowing for acute episode of respiratory distress now resolved TECHNIQUE: 1 view of the chest COMPARISON: None FINDINGS: The lungs are clear. The cardiomediastinal silhouette is within normal limits. No pneumothorax or large pleural effusion. No significant osseous findings. No acute cardiopulmonary process. Pending Studies and Lab Data: No current labs Discharge Condition: Stable Discharge to: Home Future Appointments and Orders Future Appointments and Orders Future Appointments Provider Department Dept Phone 04/16/2019 3:45 PM Nixon Jesus III, MD Otolaryngology at [place] Arrive at: Utility Appraiser Area [phone] 04/19/2019 7:30 AM [facility] IR ROOM 4 Radiology at [place] Arrive at: Utility Appraiser Area 4W [phone] Future Orders Complete By Expires Referral to Orthopaedics [REF62 Custom] As directed Process Instructions: If no progress note charted, please enter Clinical details in comments. Scheduling Instructions: Comments: He will return on Friday for the OR again and will return to [facility] on friday with ENT as an outpatient, if possible you could try to coordinate getting him Friday (if you have space) when he comes to his ENT appointment. Questions: My question or request is: Patient has continued pain post op in shoulders bilaterally. Appears to be isolated to his rotator cuffs. Discharge Medications: Your Medications New Medications Dose Details amoxicillin-clavulanate 875-125 mg Tab Commonly known as: AUGMENTIN Take 1 tablet by mouth 2 times daily. 1 tablet Quantity: 6 tablet Refills: 0 dexamethasone 4 mg Tab Commonly known as: DECADRON Take 1 tablet by mouth 2 times daily. 4 mg Quantity: 2 tablet Refills: 0 methocarbamol 500 mg Tab Commonly known as: ROBAXIN Take 1 tablet by mouth every 8 hours. 500 mg Quantity: 10 tablet Refills: 0 oxyCODONE 5 mg Tab Commonly known as: ROXICODONE Take 1 tablet by mouth every 6 hours as needed for Pain. 5 mg Quantity: 10 tablet Refills: 0 ticagrelor 90 mg Tab Commonly known as: BRILINTA Take 1 tablet by mouth 2 times daily. 90 mg Quantity: 60 tablet Refills: 3 Continued medications, unchanged Dose Details acetaminophen 325 mg Tab Commonly known as: TYLENOL Take 650 mg by mouth every 4 hours as needed for Pain. 650 mg Refills: 0 amLODIPine 10 mg Tab Commonly known as: NORVASC Take 1 tablet by mouth daily. 10 mg Quantity: 90 tablet Refills: 3 aspirin 81 mg Chew Take 81 mg by mouth daily. 81 mg Quantity: 30 tablet Refills: 3 hydrOXYzine 25 mg Tab [...] 60 tablet Refills: 3 Miscellaneous Medical Supply [facility] [place] pressure cuff - one Quantity: 1 each Refills: 0 STOPPED Medications clopidogrel 75 mg Tab Commonly known as: PLAVIX Updated Allergies/ADRs: Allergies Allergen Reactions ??? Toradol [Ketorolac] Shortness Of Breath SOB. Per patient. Follow-up Recommendations for Providers: Please have the patient follow-up Friday for his procedure. Instructions Given to Patient at Discharge: Patient Instructions ENDOVASCULAR TREATMENT OF UNRUPTURED INTRACRANIAL ANEURYSM DISCHARGE INSTRUCTIONS PRESCRIPTION INSTRUCTIONS: Please see the medication reconciliation list on this discharge summary for a current list of your medications. If not already on blood thinners, these will be started at the time of your coiling procedure [x] Brillinta: Please take this medication following treatment of your aneurysm. Your doctor will tell you how long you need to be on this medication at your follow up appointment. [x] Aspirin: Please take an aspirin 81mg daily for lifelong. This is necessary due to the coils thatare placed in your aneurysm. -Please contact us [...] lifting, etc.) for at least 2 weeks. - Do not drive until cleared by neurosurgery FOLLOW UP PLAN: Please call the Neurosurgery Office at [phone] if you have questions. Please return next week for your procedure with Dr. Persaud. You will return on Friday with ENT. HOW TO REACH NEUROSURGERY Office Hours: Friday through Friday, 8am-5pm. Call . On weekends or after office hours: Call [phone] and ask the railroad brake operator to page the NeurosurgeryResident mission coordinator. IMPORTANT PHONE NUMBERS: Outpatient Nurse (Corine Salazar) Inpatient Nurses Neurosurgical Resident On-Call (after 5pm or before 8am) Neurosurgery offices (Friday through Friday between 8am-5pm): Adult Neurosurgery Dr. Tee Gomez Pediatric Neurosurgery Dr. Paul Miguel Associate Providers Larisa Zhou, Nurse Practitioner Paul Samuels, Physician Medical Information Specialist Scott Rose, Nurse Practitioner Jacque Rodriguez, Nurse Practitioner Bette Okeefe, Nurse Practitioner Kaey Gallardo, Nurse Practitioner * Your surgeon may not be calliope player, so be ready to tell about yourself and your surgery when you call, especially after hours or on the weekend. Scott Rose APRN 04/14/2019 documented in this encounter Discharge Instructions Patient InstructionsScott Rose APRN - 04/14/2019 10:24 AM EDT ENDOVASCULAR TREATMENT OF UNRUPTURED INTRACRANIAL ANEURYSM DISCHARGE INSTRUCTIONS PRESCRIPTION INSTRUCTIONS: Please see the medication reconciliation list on this discharge summary for a current list of your medications. If not already on blood thinners, these will be started at the time of your coiling procedure [x] Brillinta: Please take this medication following treatment of your aneurysm. Your doctor will tell you how long you need to be on this medication at your follow up appointment. [x] Aspirin: Please take an aspirin 81mg daily for lifelong. This is necessary due to the coils thatare placed in your aneurysm. -Please contact us [...] lifting, etc.) for at least 2 weeks. - Do not drive until cleared by neurosurgery FOLLOW UP PLAN: Please call the Neurosurgery Office at [phone] if you have questions. Please return next week for your procedure with Dr. Persaud. You will return on Friday with ENT. documented in this encounter Medications at Time [...] documented as of this encounter Progress Notes Rosemarie Santamaria RN - 04/14/2019 12:20 PM EDT Jaswant Nice discharged to Home by private car with Patient, Family member. All belongings sent with patient. MAG removed, incision no significant drainage, skin free from pressure ulcers. Discharge instructions, medications, and follow- up appointments reviewed, education provided on new medications, stopped medications, signs and symptoms of DVT, all questions answered. Patient instructed to call with concerns. Jacque Rodriguez, MAILROOM SUPERVISOR - 04/14/2019 3:58 AM EDT NEUROSURGERY PROGRESS NOTE ID: Jaswant Nice is a 43 y.o. male with R vert and Acom aneurysm HD# 2 POD # 2 Days Post-Op s/p coiling of Acom aneurysm INTERVAL HX/ROS: Worsening bilateral shoulder pain and decreased ROM Neurologically stable MEDICATIONS: Scheduled Meds: ??? lidocaine 1 patch Transdermal Daily And ??? lidocaine 1 patch Transdermal Nightly ??? ticagrelor 90 mg Oral BID ??? aspirin 81 mg Oral Daily ??? dexamethasone 4 mg Oral BID ??? amLODIPine 10 mg Oral Daily ??? lisinopril 10 mg Oral Daily ??? methocarbamol 500 mg Oral Q8H ??? amoxicillin-clavulanate 1 tablet Oral BID ??? melatonin 9 mg Oral Nightly Continuous Infusions: PRN Meds: ondansetron, cyclobenzaprine, oxyCODONE, acetaminophen, hydrALAZINE, hydrOXYzine EXAM: Vitals: Patient Vitals for the past 24 hrs: Temp Pulse Resp BP SpO2 O2 Device 04/13/19 0400 -- (!) 108 18 145/81 95 % -- 04/13/19 0456 37.2 ??C (99 ??F) -- -- -- -- -- 04/13/19 0605 37.5 ??C (99.5 ??F) (!) 112 25 161/82 91 % -- 04/13/19 0800 -- (!) 102 20 149/85 97 % RA 04/13/19 0825 37.5 ??C (99.5 ??F) -- 23 -- 94 % RA 04/13/19 1049 -- (!) 105 18 -- 93 % -- 04/13/19 1200 -- 94 21 151/76 98 % RA 04/13/19 1221 37.6 ??C (99.7 ??F) -- 16 -- 96 % RA 04/13/19 1553 37.3 ??C (99.1 ??F) -- 20 -- 94 % RA 04/13/19 1600 -- (!) 104 19 145/68 93 % RA 04/13/191942 37.4 ??C (99.3 ??F) -- -- -- -- -- 04/13/192034 -- (!) 104 22 141/68 97 % -- 04/14/19 0002 36.1 ??C (97 ??F) 84 15 136/69 98 % -- BMI: Weight: 112 kg (247 lb) (04/12/19 0620) BMI (Calculated): 35.44 BMI Classification: Obese I/O: I/O last 3 completed shifts: In: 1790 [P.O.:790; I.V.:1000] Out: 3040 [Urine:3040] GEN:NAD, complaining of mild bi-temporal headache NEURO:AA+Ox3 Speech fluent and appropriate. Naming and repetition intact. PERRL. EOMI. Visual jacobson full to confrontation. No facial asymmetry Tongue midline MOTOR: RUE:4/5 pain limited LUE:4/5 pain limited RLE: 5/5 LLE: 5/5 Unable to perform pronator drift test due to shoulder pain LT sensation intact x 4 Groin site without hematoma, distal pulses 2+ Dressings dry and intact LABS: No results for input(s): WBC, HGB, PLATELET in the last 72 hours. No results for input(s): NA, K, CL, CO2, BUN, CREATININE in the last 72 hours. No results for input(s): PT, INR in the last 72 hours. IMAGING: None pending A/P: Jaswant Nice is a 43 y.o. male who is s/p coiling of ACOM aneurysm and rhinorocket placement following intraop epstaxis after NGT placement. Patient is nowexperiencing bilateral should pain that heis attributing to positioning during procedure to aggravating previous shoulder issues 1. Q4 hour neuro checks. 2. ASA, Brillinta 3. Robaxin scheduled, Lidocaine patches, Flexeril prn and oxycodone prn 4. Regular diet 5. Nasal packing per ENT, recommending packing remain in place until 04/16 and for patient to remain on Augmentin until packing is removed. 6. Possible ortho consult per Dr. Persaud prior to discharge. 7. Dispo planning PLEASE PAGE [phone] WITH QUESTIONS There are no hospital problems to display for this patient. Active Non-Hospital Problems Diagnosis ??? Aneurysm of artery ??? Aneurysm of vertebral artery ??? Intracranial aneurysm ??? Headache Jacque Rodriguez APRN 04/14/2019 Rosemarie Santamaria RN - 04/13/2019 7:01 PM EDT OUTCOME EVALUATION NOTE: OUTCOME SUMMARY: A&O x4, stable vital signs, c/o headache and bilat shoulder pain well controlled with medication/non pharm interventions, rhino rocket in L nare, R groin site dressing dry and intact, no drainage. Ambulated 500ft around unit with mother with no sx. PLAN MOVING FORWARD: q4h neuro checks Maintain safety INDIVIDUALIZED FALL PREVENTION INTERVENTIONS: Patient-specific fall risk factors per assessment: pain, hospital environment Assistance: SBA Supervision: Eyes on Surveillance: Bed locked in low position, call barney within reach, purposeful hourly rounding, clutter free environment, bed/chair alarm on, family at bedside Patient-specific fall prevention interventions for sensory deficits provided: no CPG GOAL OUTCOME EVALUATION: Continue care plan as documented. Yong Quinn MD - 04/13/2019 3:30 AM EDT NEUROSURGERY PROGRESS NOTE ID: Jaswant Nice is a 43 y.o. male with R vert and Acom aneurysm HD# 1 POD # 1 Day Post-Op s/p coiling of Acom aneurysm INTERVAL HX/ROS: NAEON Neurologically stable MEDICATIONS: Scheduled Meds: ??? lidocaine 1 patch Transdermal Daily And ??? lidocaine 1 patch Transdermal Nightly ??? amoxicillin-clavulanate 1 tablet Oral BID ??? melatonin 9 mg Oral Nightly Continuous Infusions: PRN Meds: acetaminophen, hydrALAZINE, hydrOXYzine EXAM: Vitals: Patient Vitals for the past 24 hrs: Temp Pulse Resp BP SpO2 O2 Flow Rate (L/min) O2 Device 04/12/19 0606 36.9 ??C (98.4 ??F) 82 16 -- 97 % -- -- 04/12/19 1342 36.9 ??C (98.4 ??F) 83 28 118/66 97 % 6 L/min Simple mask 04/12/19 1415 -- 84 18 115/61 92 % 6 L/min Nasal cup 04/12/19 1430 -- 88 22 126/63 93 % -- -- 04/12/19 1445 -- 91 22 (!) 128/92 -- -- -- 04/12/19 1500 37.4 ??C (99.3 ??F) 93 24 99/50 93 % 6 L/min Nasal cup 04/12/19 1515 -- 95 20 131/46 93 % -- -- 04/12/19 1530 -- 97 23 122/56 93 % -- -- 04/12/19 1545 -- 94 18 -- 95 % -- -- 04/12/19 1600 -- 98 19 141/71 95 % 6 L/min Nasal cup 04/12/19 1615 -- 88 23 -- 96 % -- -- 04/12/19 1630 -- (!) 101 22 144/75 95 % 3 L/min Nasal cup 04/12/19 1645 -- (!) 104 18 -- 97 % -- -- 04/12/19 1700 37.5 ??C (99.5 ??F) (!) 101 12 149/81 97 % 3 L/min Nasal cup 04/12/19 1753 -- 95 14 144/78 95 % 0 L/min RA 04/12/19 1755 37.5 ??C (99.5 ??F) -- 16 -- 97 % -- -- 04/12/192027 (!) 38.3 ??C (100.9 ??F) -- -- -- -- -- -- 04/12/190 -- (!) 120 15 145/77 (!) 89 % -- -- 04/12/192232 (!) 38.3 ??C (100.9 ??F) -- -- -- -- -- -- 04/13/19 0000 -- (!) 110 18 150/80 91 % -- -- 04/13/19 0021 37.4 ??C (99.3 ??F) -- -- -- -- -- -- BMI: Weight: 112 kg (247 lb) (04/12/19619) BMI (Calculated): 35.44 BMI Classification: Obese I/O: I/O last 3 completed shifts: In: 1010 [P.O.:10; I.V.:1000] Out: 565 [Urine:565] GEN:NAD NEURO:AA+Ox3 Speech fluent and appropriate. Naming and repetition intact. PERRL. EOMI. Visual jacobson full to confrontation. No facial asymmetry Tongue midline MOTOR: RUE:5/5 LUE:5/5 RLE: 5/5 LLE: 5/5 No pronator drift LT sensation intact x 4 Groin site without hematoma, distal pulses 2+ Dressings dry and intact LABS: No results for input(s): WBC, HGB, PLATELET in the last 72 hours. No results for input(s): NA, K, CL, CO2, BUN, CREATININE in the last 72 hours. No results for input(s): PT, INR in the last 72 hours. IMAGING: MRA pending A/P: Jaswant Nice is a 43 y.o. male who is s/p coiling of ACOM aneurysm and rhinorocket placement following intraop epstaxis after NGT placement. Doing well post op. Q2HNC, may transition to Q4 check today ASA, Brillinta Regular diet Nasal packing per ENT Dispo planning PLEASE PAGE [phone] WITH QUESTIONS There are no hospital problems to display for this patient. Active Non-Hospital Problems Diagnosis ??? Aneurysm of artery ??? Aneurysm of vertebral artery ??? Intracranial aneurysm ??? Headache Yong Qunin MD 04/13/2019 Kathleen Clark RN - 04/12/2019 4:05 PM EDT Break relief- Pt dozing arouses easily following simple commands- See neuro assessment -No active visible nasal oozing, no excessive swallowing- Rt groin site soft, no signs of hematoma. 1630- Seen by neuro and ENT- Nasal cath removed by ENT -no active nasal bleeding noted- Pt more awake, moving extremities, claribel PO flds. Keyonna Valdez RN - 04/12/2019 1:42 PM EDT Pt arrived to PACU via bed from OR. Monitors attached and alarms set & audible. VSS. NGT & rhino rocket in place w/ dried bloody drainage. Right groin site cdi, no hematoma present. +2 DP &+1PT in RLE. Pt frequently drowsy, c/o right shoulder pain. Will ctm. 1400: Pt now c/o non-radiating pain in bilateral shoulders. 0.4 iv dilaudid given x1. Pt not following commands or answering questions appropriately at this time. 1425: No change in pain w/ prn pain med. Pt yelling out about shoulder pain. Anesthesia paged. Second dose of iv dilaudid given. 1430: [facility] of [facility] pain. IV tylenol ordered. Pt alert to self. 1500: IV tylenol infusing. Pt assisted in repositioning arms. Reports numbness in LLE when asked, +1strengths. Dr. Persaud notified. Right groin site w/ scant amount of new drainage. Circled at this time. No hematoma present. 1530: Pt A&Ox4, able to reposition arms by self. Still endorses LLE numbness. 1700: Family at bedside. Pt still c/o bad shoulder pain. documented in this encounter Miscellaneous Notes Plan of Care - Reny Condon, PT - 04/14/2019 1:15 PM EDT Physical Therapy Evaluation Patient profile: Jaswant Nice is a 43 y.o. ambidextrous male admitted on 04/12/[address] Hung House Stent-assisted coil embolization of ACOM aneurysm Patient with the following active problems: Past Medical History: Diagnosis Date ??? 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 Headache 03/13/2019 ??? Intracranial aneurysm 03/24/2019 Past Surgical History: Procedure Laterality Date ??? PRO PERM OCCLUSION/EMBOLIZATION, PERCUT, RECYCLING CREW SUPERVISOR N/A 04/12/2019 @TRANSCATHETER OCCLUSION/EMBOLIZATION FOR TUMOR DESTRUCTION performed by Nikolas Persaud MD at [facility] ??? XR FLUORO LUMBAR PUNCTURE DIAGNOSIS N/A 03/13/2019 XR Fluoro Lumbar Puncture 03/13/2019 [facility] RAD XRAY Social History: Home set-up: lives with girlfriend and 18 year old son, mother lives nearby Stairs: 2 steps to enter home Baseline Mobility: independent, active without device Equipment at home: none Precautions/Special Considerations: universal Activity Orders: activity as tolerated Diet: normal Mobility and Positioning Recommendations: ?? Pt.able to ambulate independently in/out of his room and around floor ?? Please encourage up to chair for meal times as able. ?? Pt encouraged to ambulate frequently with staff, Subjective: ???My shoulders are killing me and I'm scared to have my next surgery on Friday as that pain when I work up from this surgery was unbearable. I think the pain is from the positioning, referring to when he was in OR. Objective: Pt seen for evaluation today. Pain:9-10/10 with movement in [place] anterolateral shoulders, 4/10 at rest Vital Signs: stable Mental Status: alert, oriented to person, place, and time Skin: WNL Musculoskeletal: ROM: WNL except pain limiting PROM in shoulders beyond 90 degrees flexion, unable to tolerate ER/IR without immediate pain Strength: WNL Sensation: grossly intact Bed Mobility: Supine to Sit: independent Sit to Supine: independent Transfers: Sit to Stand: independent Stand to Sit: independent Bed to Chair: independent Gait: Distance: 500 Device used: none Level of assist: Independent Gait mechanics: slow but steady, min to no arm swing Stairs: able to up/down 3 steps independently Balance: Sitting Static: WNL Sitting Dynamic: WNL Standing Static: WNL Standing Dynamic / Gait: WNL Education: family and patient has been educated on Bed mobility, Transfers, Exercise, Safety , Gait , Activity pacing/Energy conservation and Discharge planning and verbalize and demonstrate understanding. Patient status, treatment, and mobility recommendations discussed with nursing. Assessment: Jaswant Erwin Nice was seen today for physical therapy evaluation. Pt has met all goals for safe d/c home today and will have good family support. He plans to come back for more surgery to repair another aneurysm next Friday. He has significant shoulder pain related to positioning in OR and anticipate this will improve with rest, cold therapy, and PROM/pendulum exercises. Educated pt and his regarding exercises and they demonstrate good understanding. Pt was instructed to ice for 15-20 minfrequently throughout the day. He has a cryocuff at home that he can use on his shoulders. No further acute PT needs at this time. Pt to follow up with MD and potentially outpatient PT should his shoulder pain continue. Discharge Recommendations: Based on the current findings, Anticipated Discharge Disposition: home when medically ready for hospital discharge. Consult Recommendations: No other consults recommended at this time Equipment needs: No equipment necessary Plan: Therapy Frequency: evaluation only Patient/family understand and agree with plan as stated above. 2017 PT Evaluation Code Rationale: ?? Diagnosis & Pertinent Co-Morbidities, personal factors, and present illness affecting Plan ofCare: (see above); Additional personal factors or co- morbidities that impact plan: ?? Total # of Factors: 0 1-2 3+ x ?? Examination of body system impairments, functional limitations and behaviors, and/or participation restrictions. Addressing 1-2 elements Addressing 3 + elements x Addressing 4 + elements ?? Clinical presentation: See assessment above. Stable/Uncomplicated Evolving/Fluctuating Symptoms Unstable/Unpredictable x ?? Clinical decision making of moderate complexity based on pt's functional performance as outlined in this evaluation. Time IN / OUT: 10:05-10:49 Total Evaluation Minutes, Physical Therapy: 44 RENY CONDON, PT Pager: [phone] Physical Therapy Inpatient Rehabilitation Department Care Management - Bia Castillo RN - 04/14/2019 11:18 AM EDT D/C planning: Team: Neurosurg Pager: [phone] Pt to d/c home via private vehicle. Pt/team feel no d/c needs identified at this time. Pt is aware of d/c plan. Bia Castillo MSN, RN CM acetaldehyde converter operator Office of Care Management Pager #[phone] Plan of Care - Shreya Morris RN - 04/14/2019 3:33 AM EDT Problem: Patient Care Overview Goal: Plan of Care Review Outcome: Ongoing (Interventions Implemented as Appropriate) 04/13/191999 Coping/Psychosocial Plan Of Care Reviewed With patient;spouse;mother OUTCOME EVALUATION NOTE: ?? OUTCOME SUMMARY: ?? Pt is A&Ox4, AVSS, complaints of pain in bilat shoulders. Rhino rocket in L nare, occasional blood-tinged mucous drainage from L nare. Pt is able to suction self. R groin site intact, dried drainage on dressing unchanged. Voids spontaneously using urinal. Pt's mother at beside throughout shift. Calm and cooperative with care, will continue to monitor. ?? PLAN MOVING FORWARD: ?? Neuro checks q4 Maintain safety Discharge planning ?? INDIVIDUALIZED FALL PREVENTION INTERVENTIONS: ?? Patient-specific fall risk factors per assessment: Pain, hospital environment ?? Assistance: SBA ?? Supervision: Eyes on ?? Surveillance: Bed locked in low position, call barney within reach, purposeful hourly rounding, clutter free environment, bed/chair alarm on, family at bedside ?? Patient-specific fall prevention interventions for sensory deficits provided: Yes ?? CPG GOAL OUTCOME EVALUATION: ?? Continue care plan as documented. Initial Assessments - Chaim Johnston MSW - 04/13/2019 8:46 AM EDT Office of Care Management Initial Assessment YEHUDA Wesley reviewed record and discussed patient with Care Team. Source of Information: Patient, Chart, Treatment Team Introduced self/reviewed role; services accepted. Reason for Hospitalization: Planned admission for coiling of ACOM aneurysm and rhinorocket placement following intraop epstaxis Past Medical History: Diagnosis Date ??? 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 Headache 03/13/2019 ??? 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 Substance Use/Abuse: Smoking: denies, quit in Oct, 20 pack years, EtOH: socially, once every 3 months Illicits: smokes marijuana (helps relax and good for back), daily- will consider CBD oil and think about scaling back Other Pertinent/Service Specific Information: Health/Prescription Coverage: Primary Insurance: [employer] Secondary Insurance: N/A Prescription Coverage: yes Preferred Pharmacy: [facility] Primary Care Provider: Ryne Harris MD [phone] Patient/Caregiver Goals of Treatment: Potential Needs for Transition of Care: Rehab/SNF: TBD Home Health: [place] if required DME: TBD Dialysis: NA Community Resources: Available Transportation: SO or sister Anticipated Barriers to Discharge/Special Considerations: none Assessment: 43 y.o. left handed male with a PMH of migraines (as a teenager), s/p lumbar fusion (L5-S1), here for planned surgical intervention: cerebral angiography and treatment of right vertebral artery aneurysm- Stent-assistentoil embolization of ACOM aneurysm Plan: Likely home with follow up A member of the Care Management team will continue to monitor progress, follow for continuity of care and assist with transition of care planning. YEHUDA Wesley Pager: [phone] Plan of Care - Shreya Morris RN - 04/13/2019 3:57 AM EDT Problem: Patient Care Overview Goal: Plan of Care Review Outcome: Ongoing (Interventions Implemented as Appropriate) 04/12/191999 Coping/Psychosocial Plan Of Care Reviewed With patient;spouse OUTCOME EVALUATION NOTE: OUTCOME SUMMARY: Pt is A&Ox4, AVSS, complaints of pain in bilat shoulders, lidocaine patches applied. Rhino rocket placed in L nare, occasional blood-tinged mucous drainage from L nare. Pt is able to suction self. R groin site intact, dried drainage on dressing unchanged. Pt's at beside throughout shift. Cal[place] cooperative with care, will continue to monitor. PLAN MOVING FORWARD: Neuro checks q4 Maintain safety Discharge planning INDIVIDUALIZED FALL PREVENTION INTERVENTIONS: Patient-specific fall risk factors per assessment: Pain, hospital environment Assistance: SBA Supervision: Eyes on Surveillance: Bed locked in low position, call barney within reach, purposeful hourly rounding, clutter free environment, bed/chair alarm on, family at bedside Patient-specific fall prevention interventions for sensory deficits provided: Yes CPG GOAL OUTCOME EVALUATION: Continue care plan as documented. Consult Note - Harinder Sahu MD - 04/12/2019 5:54 PM EDT ENT was called to interventional radiology to assess the patient's epistaxis. By report of the anesthesia staff the placement a small bore NG tube had been attempted on the left-hand side that became difficult to pass and resulted in epistaxis. They reported that the epistaxis was not brisk and was aslow ooze. The NG tube was then placed on the right side and a second antiplatelet agent was administered for the patient's operation. Around this time the patient also had epistaxis from the right nare. On initial evaluation blood was present in both naris and in the oropharynx. A flexible suction catheter was used to clear the left nare and a Rhino Rocket was placed and inflated with good effect. Attention was then directed towards the right nare where suction was performed and then Afrin was administered followed by localized pressure for approximately 10 minutes. With this is of a co- resident Surgifoam was placed around the NG tube with good effect. The patient's oropharynx was suctioned and observed and noted to be dry. The patient was then returned to anesthesia who elected to extubate the patient due to the lack of blood in the oropharynx and transfer him to the PACU. Later in the day we were notified by neurosurgery that the right-sided NG tube was no longer needed it could be removed. The neurosurgery team felt uncomfortable doing so due to the risk of epistaxis. Thus, the ENT team remove the NG tube at bedside in the PACU with no resultant epistaxis. Due to the patient be heparinized, and on dual antiplatelet therapy we recommend the following: - Rhino Rocket to remain in place for 5 days (remove on 04/16) - ENT will remove the Rhino Rocket in house if the patient is still admitted or in clinic if he meets discharge criteria prior to removal date - Augmentin 875mg BID while packing is in place - An intermittent/slow ooze may occur on the left side, this is not concerning and will likely self resolve - Should epistaxis occur on the right side first have the patient gently blow his note to remove anyclots, apply 5 squirts if using the nasal spray, or 2 squirts if using the squeeze bottle, and hold external pressure for a full 15 minutes. If these measures are unsuccessful in stopping the epistaxisthen notify the ENT resident mission coordinator. Harinder Sahu MD PGY-1 [facility] [place] Pager: [phone] documented in this encounter Plan of Treatment Scheduled Referrals Name Type Priority Associated Diagnoses Order S chedule Referral to Outpatient Routine Acute nonintractable Ordered : Orthopaedics Referral headache, unspecified 2018 headache type Aneurysm of vertebral artery documented as of this encounter Procedures Procedure Name Priority Date/Time Associated Comments Diagnosis @TRANSCATHETER 04/12/2019 7:25 AM right vertebral OCCLUSION/EMBOLIZATIO EDT artery fusiform N FOR TUMOR aneurysm DESTRUCTION BLUE TUBE HOLD STAT 04/12/2019 7:15 AM Results for this EDT procedure are i n the results section. GREEN TUBE HOLD STAT 04/12/2019 7:15 AM Result s for this EDT procedure are i n the results section. LAVENDER TUBE HOLD STAT 04/12/2019 7:15 AM Res ults for this EDT procedure are i n the results section. documented in this encounter Results Lavender Tube HOLD (04/12/2019 7:15 AM EDT) Patholo gist Method Time Signature Lavender Hold Sample in [facility] LABORATORY Specimen Anatomical Collection Method Collection Time Receive d Time (Source) Location / / Volume Laterality Blood specimen Venous Draw / 04/12/2019 7:15 AM 2018 7:31 (specimen) Unknown EDT AM EDT Nikolas Persaud MD HEMATOLOGY ORDERABLES Performing Organization Address City/[facility]/ZIP [facility] [place] [address] Green Tube HOLD (04/12/2019 7:15 AM EDT) P athologist Signature Green Hold Sample in [facility] LABORATORY Specimen Anatomical Collection Method Collection Time Receive d Time (Source) Location / / Volume Laterality Blood specimen Venous Draw / 04/12/2019 7:15 AM 2018 7:31 (specimen) Unknown EDT AM EDT Nikolas Persaud MD CHEMISTRY ORDERABLES Performing Organization Address City/[facility] [place] [address] Blue Tube HOLD (04/12/2019 7:15 AM EDT) P athologist Signature Blue Hold Sample in [facility] LABORATORY Specimen Anatomical Collection Method Collection Time Receive d Time (Source) Location / / Volume Laterality Blood specimen Venous Draw / 04/12/2019 7:15 AM 2018 7:31 (specimen) Unknown EDT AM EDT Nikolas Persaud MD HEMATOLOGY ORDERABLES Performing Organization Address City/[facility] [place] [address] documented in this encounter Visit Diagnoses Diagnosis Acute nonintractable headache, unspecifi ed headache type 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 Brain aneurysm Cerebral aneurysm, nonruptured documented in this encounter Admitting Diagnoses Diagnosis Brain aneurysm Cerebral aneurysm, nonruptured documented in this encounter Administered Medications Inactive Administered Medications - up to 3 most recent administrations Medication Order MAR Action Action Date Dose Rate Site acetaminophen (OFIRMEV) Given 04/12/2019 3:00 PM 1,000 mg 400 mL/hr injection 1,000 mg EDT 1,000 mg, Intravenous, at 400 mL/hr, ONCE, 1 dose, On Fri04/12/19 at 1500, Maximum dose of acetaminophen is 4000 mg from all sources in 24 hours., Routine acetaminophen (TYLENOL) tablet 650 mg Given 04/14/2019 11:49 AM EDT 650 mg 650 mg, Oral, EVERY 4 HOURS PRN, Starting on Fri04/12/19 at 1310, Until Fri04/14/19 at 1516, Pain, mild pain, fever, Max. Dose = 4 grams acetaminophen (all sources) in 24 hours, Recovery (Recovery-Hospital Unit), Routine Given 04/14/2019 6:30 AM EDT 650 mg Given 04/14/2019 1:12 AM EDT 650 mg amLODIPine (NORVASC) tablet 10 mg Given 04/14/2019 9:14 AM EDT 10 mg 10 mg, Oral, DAILY, First dose on Fri04/13/19 at 1145, Until Discontinued, Routine Given 04/13/2019 11:51 AM EDT 10 mg amoxicillin-clavulanate (AUGMENTIN) 875-125 Given 03/31 9:14 AM EDT 1 tablet mg per tablet 1 tablet 1 tablet, Oral, 2 TIMES DAILY, First dose on Fri04/12/19 at 2100, Until Discontinued, Routine Given 04/13/2019 8:15 PM EDT 1 tablet Given 04/13/2019 9:50 AM EDT 1 tablet aspirin chewable tablet 81 mg Given 04/14/2019 9:14 AM EDT 81 mg 81 mg, Oral, DAILY, First dose on Fri04/13/19 at 0900, Until Discontinued, Routine Given 04/13/2019 9:50 AM EDT 81 mg cyclobenzaprine (FLEXERIL) tablet 10 mg Given 04/14/2019 9:14 AM EDT 10 mg 10 mg, Oral, 3 TIMES DAILY PRN, Starting on Fri04/13/19 at 1100, Until Fri04/14/19 at 1516, Muscle spasms, Routine Given 04/13/2019 9:18 PM EDT 10 mg Given 04/13/2019 5:03 PM EDT 10 mg dexamethasone (DECADRON) tablet 4 mg Given 04/14/2019 9:13 AM EDT 4 mg 4 mg, Oral, 2 TIMES DAILY, 6 doses, First dose on Fri04/13/19 at 1130, Last dose on [place] 04/15/19 at 1700, Routine Given 04/13/2019 5:03 PM EDT 4 mg Given 04/13/2019 11:50 AM EDT 4 mg hydrALAZINE (APRESOLINE) injection 10 mg 10 mg, Intravenous, EVERY 4 HOURS PRN, S tarting on Fri04/12/19 at 1940, Until Fri04/14/19 at 1516, High Blood Pressure, for SBP greater than 180 mmHg., Recovery (Recovery-Hospital Unit) HYDROmorphone (DILAUDID) injection 0.2-0 .4 mg Given 04/12/2019 2:28 PM EDT 0.2 mg 0.2-0.4 mg, Intravenous, EVERY 5 MIN PRN, Starting on Fri04/12/19 at 1243, Until Fri04/12/19 at 1733, Pain, Give 0.2 mg every 5 minutes PRN for mild to moderate pain (1-5) Give 0.4 mg every 5 minutes PRN for moderate to severe pain (6-10). Hold for respiratory rate less than 10 per minute. Maximum dose 4 mg over one hour. If multiple pain medications are ordered, start with hydromorphone or morphine and use fentanyl for breakthrough pain., PACU Recovery, Routine Given 04/12/2019 2:02 PM EDT 0.4 mg hydrOXYzine (ATARAX) tablet 25 mg Given 04/13/2019 8:10 PM EDT 25 mg 25 mg, Oral, NIGHTLY PRN, Starting on Fri04/12/19 at 2042, Until Fri04/14/19 at 1516, Itching, Anxiety, Routine Given 04/13/2019 9:52 AM EDT 25 mg Given 04/12/2019 10:14 PM EDT 25 mg lidocaine (LIDODERM) 5 Patch Applied 04/14/2019 9:14 AM 1 patch 03- Shoulder % patch 1 patch EDT (Left) 1 patch, Transdermal, DAILY, First dose on Fri04/13/19 at 0045, Until Discontinued, Apply patch(es) for 12 hours, and then remove for 12 hours, Routine Patch Applied 04/13/2019 9:50 AM EDT 1 patch 04- Shoulder (Right) Patch Applied 04/13/2019 12:27 AM EDT 1 patch 20- Other (document in comment section) lidocaine (LIDODERM) 5 %(700 mg/patch) P atch Removal Transdermal, NIGHTLY, First dose on Fri04/13/19 at 0045, Until Discontinued, Remove lidocaine 5 %(700 mg/patch) patch lisinopril (PRINIVIL;ZESTRIL) tablet 10 mg Given 04/14/2019 9:14 AM EDT 10 mg 10 mg, Oral, DAILY, First dose on Fri04/13/19 at 1145, Until Discontinued, Routine Given 04/13/2019 11:50 AM EDT 10 mg melatonin tablet 9 mg Given 04/13/2019 8:10 PM EDT 9 mg 9 mg, Oral, NIGHTLY, First dose on Fri04/12/19 at 2100, Until Discontinued, Routine Given 04/12/2019 10:14 PM EDT 9 mg methocarbamol (ROBAXIN) tablet 500 mg Given 04/14/2019 11:49 AM EDT 500 mg 500 mg, Oral, EVERY 8 HOURS, 6 doses, First dose on Fri04/13/19 at 1945, Last dose on Fri04/15/19 at 1145, Routine Given 04/14/2019 4:01 AM EDT 500 mg Given 04/13/2019 8:10 PM EDT 500 mg ondansetron (ZOFRAN) injection 4 mg Given 04/12/2019 2:02 PM EDT 4 mg 4 mg, Intravenous, EVERY 30 MIN PRN, Starting on Fri04/12/19 at 1243, Until Fri04/12/19 at 1733, Nausea, May repeat 4 mg once in 30 minutes. If multiple antiemetics ordered, use ondansetron first and if ineffective use prochlorperazine second and if ineffective use promethazine, PACU Recovery ondansetron (ZOFRAN) injection 4 mg 4 mg, Intravenous, EVERY 8 HOURS PRN, St arting on Fri04/13/19 at 0655, Until Fri04/14/19 at 1516, Nausea, Routine oxyCODONE (ROXICODONE) immediate release tablet Given 04/14/2019 6:30 AM EDT 5 mg 5 mg 5 mg, Oral, EVERY 4 HOURS PRN, Starting on Fri04/13/19 at 1921, Until Fri04/14/19 at 1516, Pain, For pain unrelieved by acetaminophen, Routine Given 04/14/2019 1:12 AM EDT 5 mg Given 04/13/2019 8:10 PM EDT 5 mg ticagrelor (BRILINTA) tablet 90 mg Given 04/14/2019 9:14 AM EDT 90 mg 90 mg, Oral, 2 TIMES DAILY, First dose on Fri04/13/19 at 1000, Until Discontinued, After initial loading dose of aspirin (usually 325 mg), use ticagrelor with daily maintenance dose of aspirin of 81 mg , Routine Given 04/13/2019 8:15 PM EDT 90 mg Given 04/13/2019 10:54 AM EDT 90 mg documented in this encounter Active and Recently Administered Medications Times are shown in EDT. Scheduled Medication Order 04/12/2019 04/13/2019 04/14/2019 acetaminophen (OFIRMEV) injection 1,000 mg (COMPLETED) 1500 (Given - Provider: Keyonna Valdez, GRACE) 1,000 mg, Intravenous, at 400 mL/hr, ONC E, 1 dose, Fri04/12/19 at 1500, Maximum dose of acetaminophen is 4000 mg from all sources in 24 hours., Routine amLODIPine (NORVASC) tablet 10 mg 1151 (Given - Provider: Rosemarie Santamaria RN) 0914 (Given - Provider: Rosemarie Santamaria RN) 10 mg, Oral, DAILY, First dose on Fri at 1145, Until Discontinued, Routine amoxicillin-clavulanate (AUGMENTIN) 875-125 mg per tab let 1 tablet 4 (Given - Provider: Shreya Morris RN - Comment: was waiting for pharmacy to send) 0950 (Given - Provider: Rosemarie Santamaria RN)2014 (Given - Provider: Gurmeet Dubon RN) 0914 (Given - Provider: Rosemarie Santamaria RN) 1 tablet, Oral, 2 TIMES DAILY, First dos e on Fri04/12/19 at 2100, Until Discontinued, Routine aspirin chewable tablet 81 mg 0950 (Given - Prov ider: Rosemarie Santamaria RN) 0914 (Given - Provider: Rosemarie Santamaria RN) 81 mg, Oral, DAILY, First dose on Fri at 0900, Until Discontinued, Routine dexamethasone (DECADRON) tablet 4 mg 115 0 (Given - Provider: Rosemarie Santamaria RN)1703 (Given - Provider: Rosemarie Santamaria RN) 0913 (Given - Provider: Rosemarie Santamaria RN) 4 mg, Oral, 2 TIMES DAILY, 6 doses, Firs t dose on Fri04/13/19 at 1130, Last dose on Fri04/15/19 at 1700, Routine lidocaine (LIDODERM) 5 % patch 1 patch(Linked Group 1) 0027 (Patch Applied - Provider: Shreya Morris RN - Comment: bilat shoulders)0950 (Patch Applied - Provider: Rosemarie Santamaria RN) 0914 (Patch Applied - Provider: Rosemarie Santamaria RN) 1 patch, Transdermal, DAILY, First dose on Fri04/13/19 at 0045, Until Discontinued, Apply patch(es) for 12 hours, and then remove for 12 hours, Routine lidocaine (LIDODERM) 5 %(700 mg/patch) Patch Removal(Linked Group 1) 44 (Patch Removed - Provider: Shreya Morris RN - Comment: patch applied for the first time)2021 (Patch Removed - Provider: Gurmeet Dubon RN) Transdermal, NIGHTLY, First dose on Fri04/13/19 at 0045, Until Discontinued, Remove lidocaine 5 %(700 mg/patch) patch lisinopril (PRINIVIL;ZESTRIL) tablet 10 mg 1150 (Given - Provider: Rosemarie Santamaria RN) 0914 (Given - Provider: Rosemarie Santamaria RN) 10 mg, Oral, DAILY, First dose on Fri at 1145, Until Discontinued, Routine melatonin tablet 9 mg 2214 (Given - Provider: Shreya hopkins RN) 2009 (Given - Provider: Gurmeet Dubon RN) 9 mg, Oral, NIGHTLY, First dose on Fri at 2100, Until Discontinued, Routine methocarbamol (ROBAXIN) tablet 500 mg 20 10 (Given - Provider: Gurmeet Dubon RN) 0401 (Given - Provider: Shreya cardoza RN)1149 (Given - Provider: Rosemarie Santamaria RN) 500 mg, Oral, EVERY 8 HOURS, 6 doses, Fi rst dose on Fri04/13/19 at 1945, Last dose on [place] 04/15/19 at 1145, Routine ticagrelor (BRILINTA) tablet 90 mg 1054 (Given - Provider: Rosemarie Santamaria RN)2014 (Given - Provider: Gurmeet Dubon RN) 0914 (Given - Provider: Rosemarie Santamaria RN) 90 mg, Oral, 2 TIMES DAILY, First dose o n Fri04/13/19 at 1000, Until Discontinued, After initial loading dose of aspirin (usually 325 mg), use ticagrelor with daily maintenance dose of aspirin of 81 mg , Routine Continuous Medication Order 04/12/2019 04/13/2019 04/14/2019 lactated ringers infusion (CANCELED) 0725 (New Bag - P rovider: Paul Mercedes MD)1043 (New Bag - Provider: Paul Mercedes MD) 1,000 mL, at 100 mL/hr, Intravenous, CON TINUOUS, Starting Fri04/12/19 at 0645, Until Fri04/12/19 at 1733, Day of Surgery (Day of Procedure) PRN Medication Order 04/12/2019 04/13/2019 04/14/2019 acetaminophen (TYLENOL) tablet 650 mg 194 (Given - Pr ovider: Gurmeet Dubon RN) 0016 (Given - Provider: Shreya cardoza RN)0518 (Given - Provider: Shreya Morris RN)0949 (Given - Provider: Rosemarie Santamaria RN)1702 (Given - Provider: Rosemarie Santamaria RN)2118 (Given - Provider: Gurmeet Dubon RN) 0112 (Given - Provider: Shreya Morris RN)0630 (Given - Provider: Shreya Morris RN)1149 (Given - Provider: Rosemarie Santamaria RN) 650 mg, Oral, EVERY 4 HOURS PRN, Startin g 04/12/19 at 1310, Until Fri04/14/19 at 1516, Pain, mild pain, fever, Max. Dose = 4 grams acetaminophen (all sources) in 24 hours, Recovery (Recovery-Hospital Unit), Routine cyclobenzaprine (FLEXERIL) tablet 10 mg 1150 (Given - Provider: Rosemarie Santamaria RN)1703 (Given - Provider: Rosemarie Santamaria RN)2118 (Given - Provider: Gurmeet Dubon RN) 0914 (Given - Provider: Rosemarie Santamaria RN) 10 mg, Oral, 3 TIMES DAILY PRN, Starting Tu04/13/19 at 1100, Until Fri04/14/19 at 1516, Muscle spasms, Routine hydrALAZINE (APRESOLINE) injection 10 mg 10 mg, Intravenous, EVERY 4 HOURS PRN, S tarting Fri04/12/19 at 1940, Until Fri04/14/19 at 1516, High Blood Pressure, for SBP greater than 180 mmHg., Recovery (Recovery-Hospital Unit) HYDROmorphone (DILAUDID) injection 0.2-0.4 mg (CANCELE D) 1402 (Given - Provider: Keyonna Valdez RN)1428 (Given - Provider: Keyonna Valdez RN) 0.2-0.4 mg, Intravenous, EVERY 5 MIN PRN , Starting Fri04/12/19 at 1243, Until Fri04/12/19 at 1733, Pain, Give 0.2 mg every 5 minutes [...] Recovery, Routine hydrOXYzine (ATARAX) tablet 25 mg 2213 (Given - Provid er: Shreya Morris RN) 0952 (Given - Provider: Rosemarie Santamaria RN - Comment: requested for anxiety)2009 (Given - Provider: Gurmeet Dubon RN) 25 mg, Oral, NIGHTLY PRN, Starting Fri at 2042, Until Fri04/14/19 at 1516, Itching, Anxiety, Routine ondansetron (ZOFRAN) injection 4 mg (CANCELED) 1402 (G iven - Provider: Keyonna Valdez RN) 4 mg, Intravenous, EVERY 30 MIN PRN, Sta rting Fri04/12/19 at 1243, Until Fri04/12/19 at 1733, Nausea, May repeat 4 mg once in 30 minutes. If multiple antiemetics ordered, use ondansetron first and if ineffective use prochlorperazine second and if ineffective use promethazine, PACU Recovery ondansetron (ZOFRAN) injection 4 mg 4 mg, Intravenous, EVERY 8 HOURS PRN, St arting Fri04/13/19 at 0655, Until Fri04/14/19 at 1516, Nausea, Routine oxyCODONE (ROXICODONE) immediate release tablet 5 mg 2009 (Given - Provider: Gurmeet Dubon RN) 111 (Given - Provider: Shreya cardoza RN)06 (Given - Provider: Shreya Morris, GRACE) 5 mg, Oral, EVERY 4 HOURS PRN, Starting Fri04/13/19 at 1921, Until Fri04/14/19 at 1516, Pain, For pain unrelieved by acetaminophen, Routine Linked Groups Order Group 1: lidocaine (LIDODERM) 5 % patch 1 patchJump to med 1 patch, Transdermal, DAILY, First dose on Fri04/13/19 at 0045, Until Discontinued
Apply patch(es) for 12 hours, and then remove for 12 hours
Routine And lidocaine (LIDODERM) 5 %(700 mg/patch) Patch RemovalJump to med Transdermal, NIGHTLY, First dose on Fri04/13/19 at 0045, Until Discontinued
Remove lidocaine 5 %(700 mg/patch) patch
documented in this encounter Care Teams Welt Stitch Cleaner Relationship Specialty Start Date End Date Ryne Harris MD PCP - General 10/23/10 [address] [place] [address] documented as of this encounter
--- OUTSIDE RECORDS SUMMARY | 2022-07-03 09:04 | XMS_ITS | Encounter Summary ---
:1975 Author Organization [facility] [address] Care Team Providers Name Role Phone Ryne Harris MD Primary Care Provider Reason for Visit Auth/Cert Specialty Diagnoses / Procedures Referred By Contact Refer red To Contact Diagnoses right vertebral artery fusiform aneurysm Procedures PRO PERM OCCLUSION/EMBOLIZATION, PERCUT, DOPE EDGER @TRANSCATHETER OCCLUSION/EMBOLIZATION FOR TUMOR DESTRUCTION Referral ID Status Reason Start Date Expiration Date Visits Requ ested Visits Authorized [id number] 1 1 Encounter Details Date Type Department Care Team Description 04/12/[address] [facility] Shankar Rosas MD [facility] [place] [address] [facility] Paul Davison MD [facility] [place] [address] [place] [address] Anesthesia Record Procedure Summary Procedure Name Responsible Anesthesia Start Anesthesia Stop Anesthesiologist Time Time @TRANSCATHETER Shankar Murry MD 04/12/19 0725 04/12/19 135 1 OCCLUSION/EMBOLIZATIO N FOR TUMOR DESTRUCTION (N/A ) Events Date Time Event Comment 04/12/2019 0655 0725 AN Verify 0725 Start 0729 An Start Data 0734 An Induction 0738 An Intubation 0744 Anesthesia Ready 0747 Quick Note Surgeon called i nto room asking for status of lab and that we could not proceed without it. Discussed with garret ab, incorrectly drawn. Reordered, tubes retrieved and sent back 0827 Quick Note Asked to place a n NG or OG tube by surgeon to give meds. OG tu be does not pass with 3 attempts. NG tub e attempted in R nostril, passed easily bu t then started to bleed. Held pressure, discus sed with surgeon. NG removed, IR attempting OG placement 0908 Heparin 5,000u 1242 Quick Note Nose bleed resta rted with heparinization and has continued, p roceduralist does not want to reverse with pro tamine. Paging ENT to discuss options 1330 Quick Note ENT placed rhino rocket and packing around NG tube. Bleeding s topped with pressure. Clear oropharynx. Deci kevin made to proceed with extubation 1336 Extubation/LMA Out 1338 an stop data 1351 Recovery or ICU Handoff Patient care was transferred to the destination unit staff after review of the patient's medica l history, current anesthetic/surgi gael status and plan, according to the Provider Handoff Checklist. 1351 Stop Name Total fentaNYL 100 mcg Propofol 300 mg Rocuronium 190 mg Ondansetron 4 mg Dexamethasone 8 mg Neostigmine 3 mg Glycopyrrolate 0.4 mg ticagrelor (BRILINTA) tablet 180 mg 180 mg Heparin 18,500 Units lactated ringers infusion 1,000 mL Agents Name O2 Air N2O Sevoflurane (et) Blood No blood administrations on file. Lines, Drains, and Airways Type Details Placement Removal Incision 03/25/19; 0844; groin; 03/25/19 0844 by laparoscopic puncture; Savanah Rodriguez RN Cerebral Angiogram Incision 04/12/19; 1342; groin; 04/12/19 1342 by present on pt's arrival Keyonna Valdez, to edge drummer PIV 04/12/19; 0643; 04/12/19 0643 by 04/14/19 1203 b y metacarpal vein (top of Brandyn Ramos, RN L Rosemarie larose, RN hand), right; [id number]-izh-outlla catheter system; 20 gauge, 1 in length; no longer indicated, catheter/device intact; 04/14/19; 1203 ETT Mask Ventilation: Adjunct 04/12/19 0738 by 04/12 1336 by (2); ETT Type: Cuffed, Paul Mercedes MD Rotb erg, David E, MD Oral; ETT Size: 7.5 mm; [place] Blade: 2; Notes: Asleep, Pre-O2, Stylette; Attempts: 1; Laryngoscopy Grade: 2; ETT Placement Verified By: Auscultation, Capnometry, Visual; Secured at Teeth: 22 cm; Inserted by: tomas PIV 04/12/19; 0744; 04/12/19 0744 by 04/14/19 1203 b y metacarpal vein (top of Paul Mercedes MD Lou xay, Rosemarie Shaver, RN hand), left; [id number]-cgk-ztqrom catheter system; 20 gauge; rotberg; no longer indicated, catheter/device intact; 04/14/19; 1203 Arterial Line 04/12/19; 0744; radial 04/12/19 0744 by 04/12/19 1732 by artery, left; tomas; Paul Mercedes MD Loux ay, Rosemarie Shaver RN Sterile Prep, Sterile Gloves; 04/12/19; 1732 Urethral Catheter 04/12/19; 0800; Physician 04/12/19 0800 by 0533 by order; Physician order; Gema Briones, RN Maria Isabel Harris LNA indwelling single lumen catheter; 16; inserted at this facility; 1; 10; 10; none; drainage bag to dependent drainage; urethral catheter removed, tubing intact, per protocol/policy; 04/13/19; 0533 documented in this encounter Social History Tobacco Use Types Packs/Day Years [...] on file documented as of this encounter OR Notes Anesthesia Postprocedure Evaluation - Shankar Murry MD - 04/12/2019 2:46 PM EDT Department of Anesthesiology Post-procedure Note Patient: Jaswant Nice Procedure Summary Date: 04/12/19 Room / Location: [facility] INTERVENTIONAL RADIOLOGY / [facility] Anesthesia Start: 724 Anesthesia Stop: 135 Procedure: @TRANSCATHETER OCCLUSION/EMBOLIZATION FOR TUMOR DESTRUCTION (N/A ) Diagnosis: (right vertebral artery fusiform aneurysm) Surgeon: Nikolas Persaud MD Responsible Provider: Shankar Murry MD Anesthesia Type: general ASA Status: 2 All Anesthesia Providers: Anesthesiologist: Shankar Murry MD Waste Cotton Cleaner: Paul Mercedes MD Vitals Value Taken Time BP 126/63 04/12/2019 2:30 PM Temp Pulse 91 04/12/2019 2:45 PM Resp 22 04/12/2019 2:45 PM SpO2 92 % 04/12/2019 2:44 PM Pain Level Vitals shown include unvalidated device data. Patient Location: PACU/[facility] Level of Consciousness: Awake and Alert Pain Management: Pain Being Addressed PONV: None Cardiovascular Status: Hemodynamically Stable Respiratory Status: Stable Respiratory Status and Supplemental O2 (NC or FM) Postoperative Fluid Status: Intravascular EUvolemia Possible Anesthetic Complications: NONE apparent at time of evaluation Final Primary Anesthesia Type: General (The anesthetic type performed was the same as planned.) Comments: Patient is c/o shoulder pain most likely from positioning Anesthesia Preprocedure Evaluation - Shankar Murry MD - 04/11/2019 2:31 PM EDT Pre-Anesthesia Evaluation for: Jaswant Nice a 43 y.o. male. Procedure(s): @TRANSCATHETER OCCLUSION/EMBOLIZATION FOR TUMOR DESTRUCTION Patient Active Problem List Diagnosis ??? Aneurysm of vertebral artery ??? Intracranial aneurysm ??? Headache Past Medical History: Diagnosis Date ??? 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 Headache 03/13/2019 ??? Intracranial aneurysm 03/24/2019 Past Surgical History: Procedure Laterality Date ??? XR FLUORO LUMBAR PUNCTURE DIAGNOSIS N/A 03/13/2019 XR Fluoro Lumbar Puncture 03/13/2019 [facility] RAD XRAY Social History Tobacco Use ??? Smoking status: Former Smoker Packs/day: 1.00 Years: 20.00 Pack years: 20.00 Types: Cigarettes ??? Smokeless tobacco: Never Used Substance Use Topics ??? Alcohol use: Not Currently Social History Substance and Sexual Activity Drug Use Yes ??? Frequency: 7.0 times per week ??? Types: Marijuana Allergies Allergen Reactions ??? Toradol [Ketorolac] Shortness Of Breath SOB. Per patient. ??? Aspirin CIS - shortness of breath Medications: MAR and/or home medications have been reviewed. Physical Exam: There were no vitals filed for this visit. There is no height or weight on file to calculate BMI. Airway Assessment: Mallampati: II TM distance: >3 FB Neck ROM: full Cardiovascular Assessment: cardiovascular exam normal Pulmonary Assessment: pulmonary exam normal Dental Assessment: - normal exam Misc Assessment: IV access: Peripheral line Anesthesia Plan: ASA 2 general, with a(n) intravenous induction Jaswant Erwin Nice is a 43 y.o. 112kg male with cerebral aneurysm scheduled for pipeline treatment of aneurysm. Medical history reviewed; significant for thunderclap headaches and found to have unruptured aneurysm and hypertensive urgency treated and now returning for treatment. former smoker. Anesthetic history: intubated with mil2 and mac3 in past. Had bronchospasm with last anesthetic in setting of a URI Anesthetic plan: ga ett a line. Region - Other Informed Consent: Anesthetic plan and risks discussed with patient and father. Plan discussed with resident. PAT Clinic Note documented in this encounter Plan of Treatment Not on filedocumented as of this encounter Visit Diagnoses Not on filedocumented in this encounter Administered Medications Inactive Administered Medications - up to 3 most recent administrations Medication Order MAR Action Action Date Dose Rate Site dexamethasone (DECADRON) injection Given 04/12/2019 7:49 AM EDT 8 mg PRN, Starting on Fri04/12/19 at 0749, Until Fri04/12/19 at 1351, Anesthesia Intra-op, Routine fentaNYL 50 mcg/mL multi-dose injection Given 04/12/2019 7:34 AM EDT 50 mcg PRN, Starting on Fri04/12/19 at 0729, Until Fri04/12/19 at 1351, Anesthesia Intra-op, Routine Given 04/12/2019 7:29 AM EDT 50 mcg glycopyrrolate (ROBINUL) multi-dose inje ction Given 04/12/2019 1:14 PM EDT 0.4 mg PRN, Starting on Fri04/12/19 at 1314, Until Fri04/12/19 at 1351, Anesthesia Intra-op, Routine heparin (porcine) injection Given 04/12/2019 11:58 AM EDT 1,000 Units PRN, Starting on Fri04/12/19 at 0908, Until Fri04/12/19 at 1351, Anesthesia Intra-op, Routine Given 04/12/2019 11:30 AM EDT 1,000 Units Given 04/12/2019 10:54 AM EDT 1,000 Units lactated ringers infusion New Bag 04/12/2019 10:43 AM EDT 1,000 mL, at 100 mL/hr, Intravenous, CONTINUOUS, Starting on Fri04/12/19 at 0645, Until Fri04/12/19 at 1733, Day of Surgery (Day of Procedure) New Bag 04/12/2019 7:25 AM EDT neostigmine (BLOXIVERZ) injection Given 04/12/2019 1:14 PM EDT 3 mg PRN, Starting on Fri04/12/19 at 1314, Until Fri04/12/19 at 1351, Anesthesia Intra-op, Routine ondansetron (ZOFRAN) injection Given 04/12/2019 12:33 PM EDT 4 mg PRN, Starting on Fri04/12/19 at 1233, Until Fri04/12/19 at 1351, Anesthesia Intra-op, Routine propofol (DIPRIVAN) 10 mg/mL bolus injection Given 7:34 AM EDT 300 mg (Anesthesia) PRN, Starting on Fri04/12/19 at 0734, Until Fri04/12/19 at 1351, Anesthesia Intra-op rocuronium (ZEMURON) multi-dose injectio n Given 04/12/2019 12:00 PM EDT 20 mg PRN, Starting on Fri04/12/19 at 0734, Until Fri04/12/19 at 1351, Anesthesia Intra-op, Routine Given 04/12/2019 11:35 AM EDT 20 mg Given 04/12/2019 11:08 AM EDT 20 mg ticagrelor (BRILINTA) tablet 180 mg Given 04/12/2019 8:39 AM EDT 180 mg 180 mg, Oral, ONCE, 1 dose, On Fri04/12/19 at 0845, After initial loading dose of aspirin (usually 325 mg), use ticagrelor with daily maintenance dose of aspirin of 81 mg , STAT documented in this encounter Care Teams Horse Racer Relationship Specialty Start Date End Date Ryne Harris MD PCP - General 10/23/10 [address] [place] [address] documented as of this encounter
--- OUTSIDE RECORDS SUMMARY | 2022-07-03 09:04 | XMS_ITS | Encounter Summary ---
:1975 Author Organization [facility] [place] [address] Care Team Providers Name Role Phone Ryne Harris MD Primary Care Provider Encounter Details Date Type Department Care Team Description 04/02/2019 Telephone Neurosurgery at [facility] [place] [address] Social History Tobacco Use Types Packs/Day [...] Notes Telephone Encounter - Sylvia Lewis - 04/02/2019 2:40 PM EDT LM for pt to increase aspirin from 81mg to 2x81mg per day per [place] for upcoming angio on 04/12. documented in this encounter Plan of Treatment Not on filedocumented as of this encounter Visit Diagnoses Not on filedocumented in this encounter Care Teams Inside Account Representative Relationship Specialty Start Date End Date Ryne Harris MD PCP - General 10/23/10 [address] [place] [address] documented as of this encounter
--- OUTSIDE RECORDS SUMMARY | 2022-07-03 09:04 | XMS_ITS | Encounter Summary ---
:1975 Author Organization [place] [address] Care Team Providers Name Role Phone Ryne Harris MD Primary Care Provider Encounter Details Date Type Department Care Team Description 03/29/2019 Orders Only Neurosurgery at [facility] Corine Salazar, [facility] [place] [address] Social History Tobacco Use Types Packs/Day [...] on filedocumented in this encounter Care Teams Electrical Test Technician Relationship Specialty Start Date End Date Ryne Harris MD PCP - General 10/23/10 [address] [place], [place] [address] documented as of this encounter
--- OUTSIDE RECORDS SUMMARY | 2022-07-03 09:04 | XMS_ITS | Encounter Summary ---
:1975 Author Organization [facility] [address] Care Team Providers Name Role Phone Ryne Harris MD Primary Care Provider Reason for Referral Diagnostic Test (Routine) - Closed Specialty Diagnoses / Procedures Referred By Contact Refer red To Contact Radiology Diagnoses Cerebral aneurysm [facility] Neurosurgery [address] [place] [address] Interventionl Rad Procedures [place] [address] [place] [address] Phone: Fax: Referral ID Status Reason Start Date Expiration Date Visits V isits Requested Authorized [id number] Closed Specialty 03/26/2019 03/25/2020 1 1 Service Requested iagnostic Test (Routine) - Closed Specialty Diagnoses / Procedures Referred By Contact Refer red To Contact Radiology Diagnoses Cerebral aneurysm [facility] Neurosurgery [address] [place] [address] Interventionl Rad Procedures [place] [address] [place] [address] Phone: Fax: Referral ID Status Reason Start Date Expiration Date Visits V isits Requested Authorized [id number] Closed Specialty 03/26/2019 03/25/2020 1 1 Service Requested Encounter Details Date Type Department Care Team Description 03/26/2019 Orders Only Neurosurgery at [facility] Corine Salazar Cerebral aneurysm [facility] [place] [address] Social History Tobacco Use Types Packs/Day [...] filedocumented as of this encounter Results IR Embolization Intracranial (04/19/2019 [...] entire procedure. Narrative 05/03/2019 11:28 AM EDT [facility] CEREBRAL ANGIOGRAPHY NOTE ? PATIENT NAME:? Jaswant Nice :? 1975 MRN: ? [id number] ?? CASE DATE:? 04/19/2019 ? ATTENDING: ? [...] constant heparinized drip . ? A 5Fr Smackages diagnostic catheter was adva nced into the [...] [place] from the NeuronMax guide catheter. ??The Trendsettersom P raheel intermediate catheter was next advanced over the Phenom microcatheter a nd Synchro-2 microwire assembly. ?? The microcatheter was advanced to the az d-basilar artery. ??A 4.25 mm x 16 [...] during the procedure. ??Th e patient was extubated at the end [...] ?? Nikolas Persaud MD IMG IR ORDERABLES IR Embolization Intracranial (04/12/2019 1:44 PM EDT) Anatomical Region Laterality Modality Head X-Ray Angiography Specimen (Source) Anatomical Location Collection Method / Collectio n Time Received Time / Laterality Volume Impressions 04/19/2019 4:42 AM EDT : 1) Successful intracranial deployment of [place] stent across the ACOM aneurysm from the right A2 to left A1 AC A segment. 2) Successful coil embolization of ACOM aneurysm. ?? Attending attestations: I was present during the intra-service t dee dee as documented by the IR Nurse I was the attending physician supervisin g the assistants in the above care and I was present with the assistants fo r the entire procedure. Narrative 04/19/2019 4:42 AM EDT [facility] CEREBRAL ANGIOGRAPHY NOTE ? PATIENT NAME: ? Ch ad A Nice : ?1975 MRN: ?[id number] ? CASE DATE:?04/12/2019 ? ATTENDING:?Nikolas Persaud MD? MANAGER OF SALES:? Jean Yanez MD; Brandyn Magallanes MD; Yong Quinn MD ?? 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 POSTOPERATIVE DIAGNOSIS: Same ? PROCEDURE: 1) Placement of intracranial stent (Neur oForm [place]) for treatment of wide-neck aneurysm 2) Coil embolization of unruptured ACOM aneurysm 3) Femoral artery ultrasound for arteria l access ?? ANESTHETIC: General ? INDICATIONS: This 43 y.o. male was found to have two intracranial aneurysms on workup for headaches. ??Given the patient's age , size and morphology of the aneurysms, and history of hypertension, the patient was presented the option of endovascular treatment of the aneurysms. ??He understood other management options, including continued observation as well as microsurgical clipping of the aneurysm. ??The risks and benefits of each appraoch were discussed. ??The patient e lected to have his aneurysms endovascularly treated. ??He understood all risks and elected to proceed with the treatment. ? DESCRIPTION OF PROCEDURE: The patient was brought to the angiograp hy suite and positioned on the angiography table. ??He was intubated by the anesthesia team. ??Bilateral femoral regions were prepped and then st erilely draped. ??A timeout was performed. ??Using ultrasound guidance, the right femoral artery was identified and??accessed with a micropun cture kit. ??A 6F NeuronMax guide sheath was then inserted without complic ation and connected to a constant heparinized drip. ?? The NeuronMax guide sheath was co-axiall y advanced into the left ICA over a 5F Usama catheter with a 0.035 Glidewi re. ??An angiogram was next performed to get intracranial AP and lat eral views. ??A 3-D rotational angiogram was next performed. ??3-D post processing volume and surface rendering was performed with maximum int ensity projections on a separate??workstation. ??The working vie ws giving the best projection of the ACOM aneurysm were next obtained with hi gh magnification fluorosocpy. ??The patient was given a weight-based bolus o f heparin after obtaining a baseline ACT. ??ACT values were subseque ntly drawn by anesthesia to confirm full heparinization. ?? Using roadmap guidance, the 5Fr Jenny in termediate catheter was advanced towards the JUAN CARLOS origin over the SL-10 mi crocatheter. ??The microcatheter was next advanced into the left JUAN CARLOS and then into the contralateral A2 vessel over the Synchro-2 microwire. ??A hand-injected angiogram was performed to evaluate the aneurysm and t he adjacent vasculature. ??The Neuroform [place] stent (3.0x24 mm) was ne xt introduced into the microcatheter. ??The Neuroform stent was next deployed from the right A2 into the left A1 segment across the aneu rysm neck. ??A subsequent angiogram confirmed good stent coverage of the ane urysm neck. ??Using roadmap guidance, we attempted to advance the SL -10 microcatheter across the [place] stent into the aneurysm. ??Because of si gnificant difficulty advancing the SL-10 microcatheter across the stent, we replaced the SL-10 microcatheter with a Headway Duo microcatheter. ??The Headway Duo catheter was successfully positioned over the Synchro -2 microwire into the aneurysm. ?? After confirming stable positioning of t he microcatheter in the aneurysm, we proceeded to deliver a Target 360 Ult ra coil (4mm x 15cm) into the aneurysm. ??A subsequent angiogram showe d no coil herniation into the parent vessel or thrombus formation in t he adjacency of the stent. ??We next introduced a series of Target 360 N ano coils into the aneurysm. ?? There was good positioning of the coils within the aneurysm. ??At this point, we were satisfied with the extent of aneurysm coiling. ??We proceeded to remove the microcatheter fr om the aneurysm. ??A low-magnification intracranial AP and la teral angiogram was performed from the cervical ICA after removal of the in termediate catheter. ??The guide catheter was next withdrawn to the level of the right external iliac artery. ? A right external iliac arteriogram was p erformed. ??The puncture site was noted to be above the bifurcation and be low the inferior epigastric vessel. ??The puncture site was then mar sed with the AngioSeal closure device. ??There was good hemostasis afte r deploying the closure device. ?? There were no complications during the p rocedure. ??The patient was extubated at the end of the procedure an d brought to the recovery room in stable condition. ?? FINDINGS:?? Left internal carotid artery angiogram: ??AP and lateral views show the intracranial ICA??segment and brisk fill ing of the MCA and JUAN CARLOS vessels. ?? There is a wide-neck anterior communicat ing artery aneurysm projecting anteriorly and inferiorly with the large st dimension measuring 4.3 mm. ?? 3-D rotational angiogram from the left i nternal carotid artery showing the ACOM aneurysm noted above. ??There are n o other vascular abnormalities noted on the 3-D reconstructions. ?? Left internal carotid artery angiogram ( after stent placement): ??High magnification oblique views show proper positioning of the [place] stent across the neck of the aneurysm. ??There is no thrombus formation adjacent to the stent or contrast stagnancy in ad jacent data management specialist vessels. ??There is no contrast extravasation. ?? Left internal carotid artery angiogram ( during coil embolization): ??High magnification oblique views show progres sive occlusion of the aneurysm. There is no occlusion or thrombus format ion in the adjacent vessels. ?? There is delayed filling but no occlusio n of the left ophthalmic artery. ?? Left internal carotid artery angiogram ( post stent-assisted coil embolization): ??AP and lateral views sh ow good embolization of the ACOM aneurysm. ??There is some filling of con trast within the base of the aneurysm. ??The intracranial vessels jaimie l briskly without contrast stasis or thrombus formation. ??There is no tamara dence of contrast extravasation. ?? Nikolas Persaud MD IMG IR ORDERABLES documented in this encounter Visit Diagnoses Diagnosis Cerebral aneurysm Cerebral aneurysm, nonruptured Cerebral aneurysm Cerebral aneurysm, nonruptured Cerebral aneurysm Cerebral aneurysm, nonruptured documented in this encounter Care Teams Crematorium Operator Relationship Specialty Start Date End Date Ryne Harris MD PCP - General 10/23/10 [address] [place] [address] documented as of this encounter
--- OUTSIDE RECORDS SUMMARY | 2022-07-03 09:04 | XMS_ITS | Encounter Summary ---
:1975 Author Organization [facility] [place] [address] Care Team Providers Name Role Phone Ryne Harris MD Primary Care Provider Encounter Details Date Type Department Care Team Description 03/13/2019 Ancillary Procedure Radiology Library at Mikaela Plunkett MD [facility] [place] [address] [place] [address] [phone] (Wo rk) Social History Tobacco Use Types Packs/Day Years Used Date Never Assessed Alcohol Habits Answer Date Recorded How often [...] Associated Diagnosis Comme nts FILM LIBRARY Routine 03/13/2019 9:54 AM Results f or this STORAGE ONLY CT EDT procedure ar e in HEAD [facility] SPINE the results section. documented in this encounter Results Film Library- Storage Only CT Head And Spine (03/13/2019 9:54 AM EDT) Specimen (Source) Anatomical Location Collection Method / Collectio n Time Received Time / Laterality Volume Narrative RAD - 03/13/2019 9:54 AM EDT This exam is auto-finalizing. It's purpo se is for storage only. Mikaela Plunkett MD IMG FILM LIBRARY ORDERABLES Performing Organization Address City/State/ZIP Code Phon e Number [place], [place] documented in this encounter Visit Diagnoses Not on filedocumented in this encounter Care Teams Car Retarder Operator Relationship Specialty Start Date End Date Ryne Harris MD PCP - General 10/23/10 [address] [place] [address] documented as of this encounter
--- OUTSIDE RECORDS SUMMARY | 2022-07-03 09:04 | XMS_ITS | Encounter Summary ---
:1975 Author Organization [facility] [place] [address] Care Team Providers Name Role Phone Ryne Harris MD Primary Care Provider Encounter Details Date Type Department Care Team Description 04/08/2019 Telephone Neurosurgery at [facility] [place] [address] Social History Tobacco Use Types Packs/Day [...] Notes Telephone Encounter - Radha Carmona - 04/08/2019 11:50 AM EDT Paul, Patient returned your call. He can be reached at [phone]. Thank you. Telephone Encounter - Radha Carmona - 04/08/2019 10:07 AM EDT Caller: Patient Best time to reach caller: anytime Best number to reach caller: [phone] Reason for call: Patient is calling to speak with a nurse about his headache that radiates from headdown to neck - worsening since Friday. Is wondering if his medication is causing this increased pain. Please call to discuss. Thank you. Recent Surgery?: no If before 4:00 pm: [...] on filedocumented in this encounter Care Teams It Security Consulting Director Relationship Specialty Start Date End Date Ryne Harris MD PCP - General 10/23/10 [address] [place] [address] documented as of this encounter
--- OUTSIDE RECORDS SUMMARY | 2022-07-03 09:04 | XMS_ITS | Encounter Summary ---
:1975 Author Organization [facility] [place] [address] Care Team Providers Name Role Phone Ryne Harris MD Primary Care Provider Reason for Visit Auth/Cert Specialty Diagnoses / Procedures Referred By Contact Refer red To Contact Diagnoses right vertebral artery fusiform aneurysm Procedures PRO PERM OCCLUSION/EMBOLIZATION, PERCUT, AUTO BATTERY BUILDER @TRANSCATHETER OCCLUSION/EMBOLIZATION FOR TUMOR DESTRUCTION Referral ID Status Reason Start Date Expiration Date Visits Requ ested Visits Authorized [id number] 1 1 Encounter Details Date Type Department Care Team Description 04/12/2019 Surgery [facility] Nikolas Lance MD @TRANSCATHETER Critical access hospital OCC LUSION/EMBOLIZATION Drive [place] [address] NEUROSURGERY [phone] [place], [place] [address] (Wo rk) Social History Tobacco [...] Taken Comments Blood Pressure - - Pulse 82 04/12/2019 6:06 AM EDT Temperature 36.9 ??C (98.4 ??F) 04/12/2019 6:06 AM EDT Respiratory Rate 16 04/12/2019 6:06 AM EDT Oxygen Saturation 97% 04/12/2019 6:06 AM EDT Inhaled Oxygen Concentration - - [...] artery and ACOM. He was admitted to [facility] for Stent-behavioral modification assistant coil embolization of ACOM aneurysm. Hospital [...] PM Nixon Jesus III, MD Otolaryngology at [place] Arrive at: Customer Training Specialist Area 4F [phone] 04/19/2019 7:30 AM [facility] IR ROOM 4 Radiology at [place] Arrive at: Customer Training Specialist Area 4W [phone] Future Orders Complete By Expires Referral to Orthopaedics [REF62 Custom] As directed Process Instructions: If no progress note charted, please enter Clinical details in comments. Scheduling Instructions: Comments: He will return on Friday for the OR again and will return to [facility] on friday with ENT as an outpatient, [...] 60 tablet Refills: 3 Miscellaneous Medical Supply [facility] Blood pressure cuff - one Quantity: 1 [...] PLAN: Please call the Neurosurgery Office at [phone] if you have questions. Please return next week for your procedure with Dr. Persaud. You will return on Friday with ENT. HOW TO REACH NEUROSURGERY Office Hours: Friday through Friday, 8am-5pm. Call . On weekends or after office hours: Call [phone] and ask the shot grinder operator to page the NeurosurgeryResident gas station supervisor. IMPORTANT PHONE NUMBERS: Outpatient Nurse (Corine Salazar) Inpatient Nurses Neurosurgical Resident On-Call (after 5pm or before 8am) Neurosurgery offices (Friday through Friday between 8am-5pm): Adult Neurosurgery Dr. Tee Gomez Pediatric Neurosurgery Dr. Paul Miguel Associate Providers Larisa Zhou, Nurse Practitioner Paul Samuels, Physician Publications Sales Representative Scott Rose, Nurse Practitioner Jacque Rodriguez, Nurse Practitioner Bette Okeefe, Nurse Practitioner Kaye Gallardo, Nurse Practitioner * Your surgeon may not be rubber compounder mixer, so be ready to tell about yourself and your surgery when you call, especially after hours or on the weekend. Scott Sid MIRYAM Rose 04/14/2019 documented in this encounter Discharge Instructions Patient InstructionsMilton Scott SidMIRYAM - 04/14/2019 10:24 AM EDT ENDOVASCULAR TREATMENT [...] PLAN: Please call the Neurosurgery Office at [phone] if you have questions. Please return next [...] pressure cuff 1 each 0 03/18 Supply [facility] - one ticagrelor (BRILINTA) 90 Take 1 [...] Patient instructed to call with concerns. Jacque Rodriguez APRN - 04/14/2019 3:58 AM EDT NEUROSURGERY PROGRESS [...] (!) 104 19 145/68 93 % RA 04/13/19 1943 37.4 ??C (99.3 ??F) -- -- -- -- -- 04/13/19 2035 -- (!) 104 22 141/68 97 % [...] to discharge. 7. Dispo planning PLEASE PAGE [phone] WITH QUESTIONS There are no hospital problems [...] ??F) -- -- -- -- -- -- 04/12/19 2200 -- (!) 120 15 145/77 (!) 89 % -- -- 04/12/19 2233 (!) 38.3 ??C (100.9 ??F) -- -- [...] midline MOTOR: RUE:5/5 LUE:5/5 RLE: 5/5 LLE: 5/ No pronator drift LT sensation intact x [...] packing per ENT Dispo planning PLEASE PAGE [phone] WITH QUESTIONS There are no hospital problems to display for this patient. Active Non-Hospital Problems Diagnosis ??? Aneurysm of artery ??? Aneurysm of vertebral artery ??? Intracranial aneurysm ??? Headache Yong Quinn MD 04/13/2019 Kathleen Clark RN - 04/12/2019 [...] iv dilaudid given. 1430: PACU resident @ [facility], aware of shoulder pain. IV tylenol ordered. [...] male admitted on 04/12/[address] Hung Connorwith Stent-assisted coil embolization of ACOM aneurysm Patient with the following active problems: Past Medical History: Diagnosis Date ??? 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 Headache 03/13/2019 ??? Intracranial aneurysm 03/24/2019 Past Surgical History: Procedure Laterality Date ??? PRO PERM OCCLUSION/EMBOLIZATION, PERCUT, AUTO BATTERY BUILDER N/A 04/12/2019 @TRANSCATHETER OCCLUSION/EMBOLIZATION FOR TUMOR DESTRUCTION performed by Nikolas Persaud MD at [facility] [place] ??? XR FLUORO LUMBAR PUNCTURE DIAGNOSIS N/A 03/13/2019 XR Fluoro Lumbar Puncture 03/13/2019 [facility] RAD XRAY Social History: Home set-up: [...] mobility recommendations discussed with nursing. Assessment: Jaswant Nice was seen today for physical therapy [...] Physical Therapy: 44 RENY CONDON, PT Pager: [phone] Physical Therapy Inpatient Rehabilitation Department Care Management - Bia Castillo RN - 04/14/2019 11:18 AM EDT D/C planning: Team: Neurosurg Pager: [phone] Pt to d/c home via private vehicle. Pt/team feel no d/c needs identified at this time. Pt is aware of d/c plan. Bia Castillo MSN, RN CM pulverizer Office of Care Management Pager #[phone] Plan of Care - Shreya Morris RN [...] management. Substance Use/Abuse: Smoking: denies, quit in Oct18, 20 pack years, EtOH: socially, once every 3 months Illicits: smokes marijuana (helps relax and good for back), daily- will consider CBD oil and think about scaling back Other Pertinent/Service Specific Information: Health/Prescription Coverage: Primary Insurance: CIG[employer] Secondary Insurance: N/A Prescription Coverage: yes Preferred Pharmacy: [facility] Primary Care Provider: Ryne Harris MD [phone] Patient/Caregiver Goals of Treatment: Potential Needs for Transition of Care: Rehab/SNF: TBD Home Health: [facility] if required DME: TBD Dialysis: NA Community [...] transition of care planning. YEHUDA Wesley Pager: [phone] Plan of Care - Shreya Morris RN [...] stopping the epistaxisthen notify the ENT resident gas station supervisor. Harinder Sahu MD PGY-1 [facility] Otolaryngology Pager: [phone] documented in this encounter Plan of Treatment [...] Method Time Signature Lavender Hold Sample in [facility]. [facility] Specimen Anatomical Collection Method Collection Time Receive d Time (Source) Location / / Volume Laterality Blood specimen Venous Draw / 04/12/2019 7:15 AM 2018 7:31 (specimen) Unknown EDT AM EDT Nikolas Persaud MD HEMATOLOGY ORDERABLES Performing Organization Address City/State/ZIP Code Phon e [place] [address] Green Tube HOLD (04/12/2019 7:15 AM EDT) P athologist Signature Green Hold Sample in [facility]. [facility] Specimen Anatomical Collection Method Collection Time Receive d Time (Source) Location / / Volume Laterality Blood specimen Venous Draw / 04/12/2019 7:15 AM 2018 7:31 (specimen) Unknown EDT AM EDT Nikolas Persaud MD CHEMISTRY ORDERABLES Performing Organization Address City/State/ZIP Code Phon e Number [address] Blue Tube HOLD (04/12/2019 7:15 AM EDT) P athologist Signature Blue Hold Sample in [facility] lab. [facility] Specimen Anatomical Collection Method Collection Time Receive d Time (Source) Location / / Volume Laterality Blood specimen Venous Draw / 04/12/2019 7:15 AM 2018 7:31 (specimen) Unknown EDT AM EDT Nikolas Persaud MD HEMATOLOGY ORDERABLES Performing Organization Address City/[facility] [place] [address] documented in this encounter Visit Diagnoses Not on filedocumented in this encounter Admitting Diagnoses Diagnosis Brain aneurysm Cerebral aneurysm, nonruptured documented in this encounter Administered Medications Inactive Administered Medications - up to 3 most recent administrations Medication Order MAR Action Action Date Dose Rate Site acetaminophen (TYLENOL) tablet Given 04/14/2019 11:49 AM EDT 650 mg 650 mg 650 mg, Oral, EVERY 4 [...] Last dose on Fri04/15/19 at 1700, Routine Given 04/13/2019 5:03 PM EDT 4 mg Given 04/13/2019 11:50 AM EDT 4 mg hydrALAZINE (APRESOLINE) injection 10 mg 10 mg, Intravenous, EVERY 4 HOURS PRN, S tarting on Fri04/12/19 at 1940, Until Fri04/14/19 at 1516, High Blood Pressure, for SBP greater than 180 mmHg., Recovery (Recovery-Hospital Unit) hydrOXYzine (ATARAX) tablet 25 mg Given 04/13/2019 [...] 500 mg ondansetron (ZOFRAN) injection 4 mg 4 mg, [...] 875-125 mg per tab let 1 tablet 2214 (Given - Provider: Shreya Morris RN - [...] Until Discontinued, Routine melatonin tablet 9 mg 2213 (Given - Provider: Shreya hopkins RN) 2009 [...] Last dose on Fri04/15/19 at 1145, Routine ticagrelor (BRILINTA) tablet 90 [...] 04/13/2019 04/14/2019 acetaminophen (TYLENOL) tablet 650 mg 1948 (Given - Pr ovider: Gurmeet Dubon RN) 0016 (Given - Provider: Shreya cardoza RN)0518 (Given - Provider: Shreya Morris RN)0949 (Given - Provider: Rosemarie Santamaria RN)1702 (Given - Provider: Rosemarie Santamaria RN)211 (Given - Provider: Gurmeet Dubon RN) 0112 (Given - Provider: Shreya Morris RN)0630 (Given - Provider: Shreya Morris RN)1149 (Given - Provider: Rosemarie Santamaria RN) 650 mg, Oral, EVERY 4 HOURS PRN, Startin g Fri04/12/19 at 1310, Until Fri04/14/19 at 1516, [...] mg, Oral, 3 TIMES DAILY PRN, Starting Fri04/13/19 at 1100, Until Fri04/14/19 at 1516, Muscle spasms, Routine hydrALAZINE (APRESOLINE) injection 10 mg 10 mg, Intravenous, EVERY 4 HOURS PRN, S tarting Fri04/12/19 at 1940, Until Fri04/14/19 at 1516, High Blood Pressure, for SBP greater than 180 mmHg., Recovery (Recovery-Hospital Unit) HYDROmorphone (DILAUDID) injection 0.2-0.4 mg (CANCELE D) 1402 (Given - Provider: Keyonna Valdez, RN)1428 (Given - Provider: Keyonna Valdez, GRACE) 0.2-0.4 mg, Intravenous, EVERY 5 MIN PRN [...] (Given - Provid er: Shreya Morris RN) 951 (Given - Provider: Rosemarie Santamaria RN - Comment: requested for anxiety)2009 (Given - Provider: Gurmeet Dubon RN) 25 mg, Oral, NIGHTLY PRN, Starting Fri at 2042, Until Fri04/14/19 at 1516, Itching, Anxiety, Routine ondansetron (ZOFRAN) injection 4 mg (CANCELED) 1402 (G iven - Provider: Keyonna Valdez, GRACE) 4 mg, Intravenous, EVERY 30 MIN PRN, [...] 2009 (Given - Provider: Gurmeet Dubon RN) 011 (Given - Provider: Shreya carodza RN)06 (Given - Provider: Shreya Morris RN) 5 mg, Oral, EVERY 4 HOURS PRN, [...] patch
documented in this encounter Care Teams Warehouse Sorter Relationship Specialty Start Date End Date Ryne Harris MD PCP - General 10/23/10 [address] [place] [address] documented as of this encounter
--- OUTSIDE RECORDS SUMMARY | 2022-07-03 09:04 | XMS_ITS | Encounter Summary ---
:1975 Author Organization [facility] [place] [address] Care Team Providers Name Role Phone Ryne Harris MD Primary Care Provider Encounter Details Date Type Department Care Team Description 11/10/2017 Abstract Chari Brody Conversion Apd Conversion, Flowsheet Results Provider, [address] [place] [address] Social History Tobacco Use Types Packs/Day [...] on filedocumented in this encounter Care Teams Cafeteria Associate Relationship Specialty Start Date End Date Ryne Harris MD PCP - General 10/23/10 [address] [place], [place] [id number] documented as of this encounter
--- OUTSIDE RECORDS SUMMARY | 2022-07-03 09:04 | XMS_ITS | Encounter Summary ---
:1975 Author Organization [facility] [place] [address] Care Team Providers Name Role Phone Ryne Harris MD Primary Care Provider Encounter Details Date Type Department Care Team Description 02/11/2019 Ancillary Procedure Radiology Library at Mikaela Plunkett MD [facility] [place] [address] [place] [address] [phone] (Wo rk) Social History Tobacco Use Types [...] Associated Diagnosis Comme nts FILM LIBRARY Routine 02/11/2019 12:00 AM Results for this STORAGE ONLY CT EDT procedure ar e in HEAD AND SPINE the results section. documented in this encounter Results Film Library- Storage Only CT Head And Spine (02/11/2019 12:00 AM EDT) Specimen (Source) Anatomical Location Collection Method / Collectio n Time Received Time / Laterality Volume Narrative RAD - 03/13/2019 9:52 AM EDT This exam is auto-finalizing. It's purpo se is for storage only. Mikaela Plunkett MD IMG FILM LIBRARY ORDERABLES Performing Organization Address City/State/ZIP Code Phon e Number [place], [place] documented in this encounter Visit Diagnoses Not on filedocumented in this encounter Care Teams Mathematics Improvement Teacher Relationship Specialty Start Date End Date Ryne Harris MD PCP - General 10/23/10 [address] [place] [address] documented as of this encounter
--- OUTSIDE RECORDS SUMMARY | 2022-07-03 09:04 | XMS_ITS | Encounter Summary ---
:1975 Author Organization [facility] [address] Care Team Providers Name Role Phone Ryne Harris MD Primary Care Provider Encounter Details Date Type Department Care Team Description 03/13/2019 Ancillary Procedure Radiology Library at Mikaela Plunkett MD [facility] [place] [address] [place] [address] [phone] (Wo rk) Social History Tobacco Use Types [...] Diagnosis Comme nts FILM LIBRARY Routine 03/13/2019 9:45 AM Results f or this STORAGE ONLY CT EDT procedure ar e in HEAD the results section. documented in this encounter Results Film Library- Storage Only CT Head (03/13/2019 9:45 AM EDT) Specimen (Source) Anatomical Location Collection Method / Collectio n Time Received Time / Laterality Volume Narrative RAD - 03/13/2019 9:45 AM EDT This exam is auto-finalizing. It's purpo se is for storage only. Mikaela Plunkett MD IMG FILM LIBRARY ORDERABLES Performing Organization Address City/State/ZIP Code Phon e Number [place], [place] documented in this encounter Visit Diagnoses Not on filedocumented in this encounter Care Teams Director Center Relationship Specialty Start Date End Date Ryne Harris MD PCP - General 10/23/10 [address] [place] [address] documented as of this encounter
--- OUTSIDE RECORDS SUMMARY | 2022-07-03 09:04 | XMS_ITS | Encounter Summary ---
:1975 Author Organization [facility] [place] [address] Care Team Providers Name Role Phone Ryne Harris MD Primary Care Provider Reason for Referral Diagnostic Test (Routine) - Closed Specialty Diagnoses / Procedures Referred By Contact Refer red To Contact Radiology Diagnoses Cerebral [place] [facility] [place] [facility] Interventionl Rad Procedures [place] [address] [place] [address] Phone: Fax: Referral ID Status Reason Start Date Expiration Date Visits V isits Requested Authorized [id number] Closed Specialty 03/26/2019 03/25/2020 1 1 Service Requested Reason for Visit Auth/Cert Specialty Diagnoses / Procedures Referred By Contact Refer red To Contact Diagnoses right vertebral artery fusiform aneurysm Procedures PRO PERM OCCLUSION/EMBOLIZATION, PERCUT, SEAMING MACHINE OPERATOR @[email or web address] OCCLUSION/EMBOLIZATION FOR TUMOR DESTRUCTION Referral ID Status Reason Start Date Expiration Date Visits Requ ested Visits Authorized [id number] 1 1 Encounter Details Date Type Department Care Team Description 04/12/2019 Hospital Encounter [place] [facility]olas Persaud MD Cerebral aneurysm [facility] [address] [place] [address] [place] [address] [phone] Social History Tobacco Use Types Packs/Day Years [...] pressure cuff 1 each 0 03/18 [place] [facility] [place] ticagrelor (BRILINTA) 90 Take 1 [...] every 6 hours as needed for Pain. clopidogrel (PLAVIX) 75 Take 1 tablet by 10 tablet 0 201804/14/2019 mg Tablet mouth daily for 10 days. aspirin 81 mg Tablet, Take 81 mg by mouth 30 tablet 3 03/2704/21/2019 Chewable daily. documented as of this encounter Progress Notes Brandyn Magallanes MD - 04/12/2019 12:53 PM EDT INTERVENTIONAL RADIOLOGY BRIEF PROCEDURE NOTE Patient Name: Jaswant Nice : 1975 Case Date: 04/12/2019 Operators: Attending: Beau Persaud Resident/Fellow: Elpidio Quinn Indication: 43 y.o. male with history of headaches and recently diagnosed, unruptured aneurysms involving the right vertebral artery and ACOM. Name of Procedure Performed: Stent-assistentoil embolization of ACOM aneurysm Brief description of the procedure: - R HOSPICE NURSE access - Left ICA and cerebral angiography - Stent-assisted coil embolization of ACOM aneurysm - Angioseal closure of R HOSPICE NURSE access EBL: <10 mL Complications: No immediate Plan: 1. Right leg straight and head of bed <30 degrees x 2hrs 2. Ticagrelor 90mg / ASA 81mg qam FULL PROCEDURE NOTE TO FOLLOW IN IMAGE REPORT documented in this encounter H&P Notes Brandyn Magallanes MD - 04/12/2019 7:14 AM EDT INTERVENTIONAL RADIOLOGY FOCUSED H&P and PRE-PROCEDURE NOTE: PCP: Ryne Harris MD Referring Provider: Nikolas Persaud Planned Procedure: Cerebral angiography and treatment of right vertebral artery aneurysm Procedure Indication: Right vertebral artery aneurysm Order Questions Answers Where will study be performed? [facility] [120] Is the patient on anticoagulant / anitplatelet therapy ? Aspirin Reason for exam and clinical history: right vertebral artery fusiform aneurysm Exam/Procedure requested: Pipeline treatment of aneurysm Presenting Diagnosis/ Complaint: Jaswant Nice is a 43 y.o. 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 Past Medical/Surgical History: Patient Active Problem List Diagnosis Code ??? Headache R51 ??? 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 Intracranial aneurysm I67.1 Past Medical History: Diagnosis Date ??? 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 Headache 03/13/2019 ??? Intracranial aneurysm 03/24/2019 Past Surgical History: Procedure Laterality Date ??? XR FLUORO LUMBAR PUNCTURE DIAGNOSIS N/A 03/13/2019 XR Fluoro Lumbar Puncture 03/13/2019 [facility] RAD XRAY Medications: Current Facility-Administered Medications on File Prior to Encounter Medication Dose Route Frequency Provider Last Rate Last Dose ??? lactated ringers infusion 1,000 mL Intravenous Continuous Shankar Murry MD ??? fentaNYL (PF) 50 mcg/mL injection Current Outpatient Medications on File Prior to Encounter Medication Sig Dispense Refill ??? acetaminophen (TYLENOL) 325 mg Tablet Take 650 mg by mouth every 4 hours as needed for Pain. ??? clopidogrel (PLAVIX) 75 mg Tablet Take 1 tablet by mouth daily for 10 days. 10 tablet 0 ??? aspirin 81 mg Tablet, Chewable Take [...] 60 tablet 3 ??? Miscellaneous Medical Supply [facility] [place] Blood pressure [...] file Gets together: Not on file Attends [employer] service: Not on file Active member of [...] 6.2 03/16/2019 Imaging: see EMR Physical Exam: Gen: alert and oriented Chest: RRR Neuo: no visual defect or gaze preference; strength full; sensation intact; CN grossly intact Assessment: 43 y.o. 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 Plan: Treatment of right vertebral artery aneurysm - R HOSPICE NURSE access - procedure with Anesthesia 04/12/2019 documented in this encounter Plan of Treatment Not on filedocumented as of this encounter Procedures Procedure Name Priority Date/Time Associated Comments Diagnosis IR EMBOLIZATION Routine 04/12/2019 1:44 PM Cerebral aneurysm R esults for this INTRACRANIAL EDT procedure are i n the results section. P2Y12 ANTIPLATELET STAT 04/12/2019 7:56 AM Res ults for this ([facility]) EDT procedure are i n the results section. documented in this encounter Results IR Embolization Intracranial (04/12/2019 1:44 PM EDT) Anatomical Region Laterality Modality Head X-Ray Angiography Specimen (Source) Anatomical Location Collection Method / Collectio n Time Received Time / Laterality Volume Impressions 04/19/2019 4:42 AM EDT : 1) Successful intracranial deployment of [employer] stent across the ACOM aneurysm from the [...] entire procedure. Narrative 04/19/2019 4:42 AM EDT [facility] CEREBRAL [place]GIOGRAPHY NOTE ? PATIENT NAME: ? Ch ad A Nice : ?1975 MRN: ?[id number] ? CASE DATE:?04/12/2019 ? ATTENDING:?Nikolas Persaud MD? TRAVEL REGISTERED NURSE ICU:? Jean Yanez MD; Brandyn Magallanes MD; Yong Quinn MD ?? 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 POSTOPERATIVE DIAGNOSIS: Same ? PROCEDURE: 1) Placement of intracranial stent (Neur oForm Jbs[employer] Randolph) for treatment of wide-neck aneurysm 2) Coil [...] and t he adjacent vasculature. ??The Neuroform J[employer] Randolph stent (3.0x24 mm) was ne xt introduced into the microcatheter. ??The Neuroform stent was next deployed from the right A2 into the left A1 segment across the aneu rysm neck. ??A subsequent angiogram confirmed good stent coverage of the ane urysm neck. ??Using roadmap guidance, we attempted to advance the SL -10 microcatheter across the Jbsa Randolph stent into the aneurysm. ??Because of si [...] oblique views show proper positioning of the Jbsa Randolph stent across the neck of the aneurysm. ??There is no thrombus formation adjacent to the stent or contrast stagnancy in ad jacent frame bander vessels. ??There is no contrast extravasation. ?? [...] ?? Nikolas Persaud MD IMG IR ORDERABLES P2Y12 Antiplatelet (Leb/CGP) (04/12/2019 7:56 AM EDT) athologist Signature P2Y12 [address] [facility] Comment: This test is intended to be used as an i ndication of drug effect in patients on clopidogrel (Plavix) only in conjunction with a baseline pre-treatment determination. Specimen Anatomical Collection Method Collection Time Receive d Time (Source) Location / / Volume Laterality Blood specimen 04/12/2019 7:56 AM 019 8:01 (specimen) EDT AM EDT Resulting Agency Comment Spec In Lab Nikolas Persaud MD HEMATOLOGY ORDERABLES Performing Organization Address City/State/[place] [address] documented in this encounter Visit Diagnoses Diagnosis Cerebral aneurysm Cerebral aneurysm, nonruptured Aneurysm of artery Aneurysm of other specified artery documented in this encounter Admitting Diagnoses Diagnosis Aneurysm of artery Aneurysm of other specified artery documented in this encounter Administered Medications Inactive Administered Medications - up to 3 most recent administrations Medication Order MAR Action Action Date Dose Rate Site iodixanol (VISIPAQUE) 320 mg Given 04/12/2019 1:23 PM EDT 125 mL s iodine/mL injection 150 mL 150 mL, Intra-arterial, ONCE PRN, 1 dose, Starting on Fri04/12/19 at 1304, Until Fri04/12/19 at 1323, Per Protocol, Routine documented in this encounter Care Teams Longshore Equipment Operator Relationship Specialty Start Date End Date Ryne Harris MD PCP - General 10/23/10 [address] [place] [address] documented as of this encounter
--- OUTSIDE RECORDS SUMMARY | 2022-07-03 09:04 | XMS_ITS | Encounter Summary ---
:1975 Author Organization [facility] [place] [address] Care Team Providers Name Role Phone Ryne Harris MD Primary Care Provider Encounter Details Date Type Department Care Team Description 03/15/2019 Anesthesia Event [facility] [place] [address] ANESTHESIOLOGY DEPT [phone] [place], [place] [address] (Wo rk) Anesthesia Record Procedure Summary Procedure Name Responsible Anesthesiologist Anesthesia Start Ti me Anesthesia Stop Time stat airway Events No events on file. No medications on file. Agents No agents on file. Blood No blood administrations on file. Lines, Drains, and Airways No LDAs on file. documented in this encounter Social History Tobacco [...] on filedocumented in this encounter Care Teams Senior Painter Relationship Specialty Start Date End Date Ryne Harris MD PCP - General 10/23/10 [address] [place] [address] documented as of this encounter
--- OUTSIDE RECORDS SUMMARY | 2022-07-03 09:04 | XMS_ITS | Encounter Summary ---
:1975 Author Organization [facility] [place] [address] Care Team Providers Name Role Phone Ryne Harris MD Primary Care Provider Reason for Referral Diagnostic Test (Routine) - Closed Specialty Diagnoses / Procedures Referred By Contact Refer red To Contact Radiology Diagnoses Cerebral aneurysm Hardeep Persaud MD [facility] Interventionl Rad Procedures IR Arteriogram Cerebral [facility] [place] [address] [place] [address] Referral ID Status Reason Start Date Expiration Date Visits V isits Requested Authorized [id number] Closed Specialty 03/24/2019 03/23/2020 1 1 Service Requested Reason for Visit Auth/Cert Specialty Diagnoses / Procedures Referred By Contact Refer red To Contact Diagnoses Intracranial aneurysm CEREBRAL ANEURYSM Procedures EMERGENCY IPI Referral ID Status Reason Start Date Expiration Date Visits Requ ested Visits Authorized [id number] 1 1 Encounter Details Date Type Department Care Team Description 03/24/2019 - Hospital Neuroscience Special Hardeep Persaud, Acute nonintractable headache, unspecified headache type; 03/26/2019 Encounter Care Unit Lola NIÑO Aneurysm of vertebral artery; [facility] Cerebral aneurysm [facility] [place] [id number] [phone] Social History Tobacco Use Types Packs/Day Years [...] Sign Reading Time Taken Comments Blood Pressure 118/63 03/26/2019 12:00 PM EDT Pulse 83 03/26/2019 12:00 PM EDT Temperature 37.2 ??C (99 ??F) 03/26/2019 2:00 PM EDT Respiratory Rate 17 03/26/2019 12:00 PM EDT Oxygen Saturation 96% 03/26/2019 12:00 PM EDT Inhaled Oxygen Concentration - - Weight 112.4 kg (247 lb 12.8 oz) 03/24/2019 4:56 PM EDT Height 182.9 cm (6') 03/24/2019 4:56 PM EDT Body Mass Index 33.61 03/24/2019 4:56 PM EDT documented in this encounter Discharge Summaries Scott Rose APRN - 03/26/2019 2:41 PM EDT Patient Name: Jaime Guzman Patient Age: 43 y.o. Admit date: 03/24/2019 Discharge Date and Time: 03/26/2019 Attending Physician: Hardeep Persaud MD Discharging Provider: Scott Rose APRN Discharging Service: NEUROSURGERY Operations/Major Procedures: 1) Diagnostic Cerebral Angiogram Hardeep Persaud MD - 03/25/19 Active Hospital Problems: Active Hospital Problems Diagnosis ??? Intracranial aneurysm Resolved Hospital Problems No resolved problems to display. Active Non Hospital Problems: Active Non-Hospital Problems Diagnosis ??? Aneurysm of vertebral artery ??? Headache History of Presentation: Per review of relevant records: Jaime Guzman is a 43 y.o. 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 Plunkett. He was admitted from clinic for further workup and evaluation. ?? As you know, Mr. Guzman is a pleasant 43 y.o. male who was recently found to have two intracranial aneurysms. These were discovered on work up for an episode of sudden severe headache with possible loss of consciousness which brought him to medical attention. Per discussion with patient and family and review of medical records, Mr. Guzman had sudden onset of severe headache on 03/13. He has a remote history of migraines in his teens and twenties, but no recent headache history, so this was out of the ordinary for him. He recalls receiving an ice pack from his girlfriend but cannot recall events following this. 911 was called and he was found face down. He presented initially to [facility]. He was noted to beconfused and lethargic with left sided weakness. His blood pressure was 192/101. CT scan of the head03/13 was negative for stroke or hemorrhage. CTA on 03/13 demonstrated the above mentioned aneurysms. He was given IV medication to bring his blood pressure down and he was transferred to [facility] for further evaluation and management. He was admitted to the Neurology service at [facility]. An LP was performed 03/13 which was negative for RBCs and xanthochromia. Repeat CT was performed on 03/14 and did not demonstrate any changes from prior again without evidence of hemorrhage or stroke. He was unable to have an MRI due to an implanted bone stimulator. EEG was performed and did not demonstrate any epileptic activity. His blood pressure was eventually well controlled with oral medications which he continues today. He underwent workup for pheochromocytoma which results were still pending at the time of discharge. His headache had improved significantly over the course of his hospitalization, but did not resolvefully. ?? Currently, Mr. Guzman continues to complain of head and neck pain. Headache is not positional. +Photophobia. No back pain above his usual. Hospital Course: Jaime Guzman underwent the aforementioned procedure on 03/25/2019 with . He tolerated the procedure well and there were no reported intraoperative complications. An operative note was not available for review at the time of discharge. The DSA was reported as negative for vasospasm. Patient had a prior recorded allergy to aspirin which required medical management in the emergency department. Records for this prior allergy are not available. Given that the patient will need to be on aspirin after his aneurysm coiling the patient was trialed on aspirin while admitted. During this trial the patient was admitted to the ICU for supervision of the aspirin administration by the critical care team. The critical care team's plan was as follows for aspirin administration: ?? Discussed plan for ASA administration with the Allergy Attending. She was in agreement with the plan below ?? Reviewed up to date with the following recommendations ? Treat with montelukast 10 mg on hour prior to adminstration ? Then give 40.5 mg ASA ? Wait 90 minutes and repeat if no symptoms, then 81 mg per day ? If develops symptoms ?? Repeat montelukast ?? Prednisone 40 mg ?? Albuterol for wheezing He was able to tolerate the aspirin administration and required no acute intervention. Therefore, patient has been cleared for continued aspirin administration in the future. Given that the patient wasable to tolerate his aspirin he was transferred out of the ICU to the neuro science stepdown unit and had no further issues while admitted. He will be continued on ASA 81mg at discharge and tolerated another dose on day of discharge, Patient will return at a later date for his further aneurysm management with Dr. Persaud. Tentativelyas early as next Friday. Patient has remained neurologically and hemodynamically stable during the hospitalization. Patient was deemed safe for discharge home. On the day of discharge he is tolerating a regular diet, ambulating, voiding spontaneously, and his pain is controlled with oral medications. Patient will be discharged without opioid pain medication. Important Studies and Lab Data: Labs: Lab [...] 0.64 (L) 03/26/2019 12:15 AM Studies: CT Head Wo Contrast (generic) Result Date: 03/14/2019 EXAMINATION: CT HEAD WO CONTRAST (GENERIC) CLINICAL HISTORY: Left sided head pain and weakness. assess for interval evidence of stroke since his head CT yesterday. He has a spinal stimulator that is not MRI compatable TECHNIQUE: CT head performed without intravenous contrast administration. COMPARISON: Head CT scan 03/13/2019 and CTA of the head and neck 03/13/2019 FINDINGS: No intracranial hemorrhage,mass, mass effect, hydrocephalus, midline shift, or large acute infarction. The subarachnoid spaces are normal. No significant osseous abnormality. The visualized portions of the paranasal sinuses and mastoid air cells are clear. 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 1. No acute intracranial disease. Specifically, no evidence of acute infarction. 2. 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 XR Fluoro Lumbar Puncture Addendum Date: 03/22/2019 --------ADDENDUM #1-------- CLINICAL HISTORY: Severe headache and left sided weakness/numbness, evaluate for SAH. Thank you for letting us participate in the care of this patient. For questions regarding this report, please contact the number below. --------ORIGINAL REPORT -------- EXAMINATION: XR FLUORO LUMBAR PUNCTURE DIAGNOSIS CLINICAL HISTORY: evaluate for SAH TECHNIQUE: After an extensive discussion with the patient regarding the risks and benefits of the procedure, informed written and verbal consent were obtained. With the patient positioned prone on the fluoroscopy table, the L3-L4 interspace was localized using physical landmarks and fluoroscopy. The overlying skin was then prepped and draped in a sterile surgical fashion. A preprocedural timeout was performed per [facility] protocol. The patient'sskin was anesthetized using less than 5 cc of 1% lidocaine without epinephrine. A 20-gauge, 3 1/2 inch spinal needle was advanced into the subarachnoid space, which was confirmed with return of clear cerebral spinal fluid. Opening pressure was not measured. A total of 9 cc of clear cerebral spinal fluid was collected and divided into four tubes. These tubes were sent for laboratory analysis, as per the ordering physician. After the fluid was collected, the stylet was replaced and the spinal needle removed. There were no immediate complications. The patient was instructed to lie flat for one hour following this procedure. COMPARISON: Lumbar radiographs dated 09/01/2008. FINDINGS: 9 cc of clear cerebrospinal fluid. FLUOROSCOPY TIME: 0.07 minutes IMPRESSION: Successful fluoroscopically-guided lumbar puncture without immediate complication. 9 cc of clear CSF were sent to the laboratory for evaluation. Addendum Date: 03/22/2019 --------ADDENDUM #1-------- CLINICAL HISTORY: Severe headache and left sided weakness/numbness, evaluate for SAH. --------ORIGINAL REPORT -------- EXAMINATION: XR FLUORO LUMBAR PUNCTURE DIAGNOSIS CLINICAL HISTORY: evaluate for SAH TECHNIQUE: After an extensive discussion with the patient regarding therisks and benefits of the procedure, informed written and verbal consent were obtained. With the patient positioned prone on the fluoroscopy table, the L3-L4 interspace was localized using physical landmarks and fluoroscopy. The overlying skin was then prepped and draped in a sterile surgical fashion.A preprocedural timeout was performed per [facility] protocol. The patient's skin was anesthetized using less than 5 cc of 1% lidocaine without epinephrine. A 20-gauge, 3 1/2 inch spinal needle was advanced into the subarachnoid space, which was confirmed with return of clear cerebral spinal fluid. Opening pressure was not measured. A total of 9 cc of clear cerebral spinal fluid was collected and divided into four tubes. These tubes were sent for laboratory analysis, as per the ordering physician. After the fluid was collected, the stylet was replaced and the spinal needle removed. There were no immediate complications. The patient was instructed to lie flat for one hour following this procedure. COMPARISON: Lumbar radiographs dated 09/01/2008. FINDINGS: 9 cc of clear cerebrospinal fluid. FLUOROSCOPY TIME: 0.07 minutes IMPRESSION: Successful fluoroscopically-guided lumbar puncture without immediate complication. 9 cc of clear CSF were sent to the laboratory for evaluation. I was present for the critical portions of the procedure and was immediately available at all times. Result Date: 03/22/2019 EXAMINATION: XR FLUORO LUMBAR PUNCTURE DIAGNOSIS CLINICAL HISTORY: evaluate for SAH TECHNIQUE: Afteran extensive discussion with the patient regarding the risks and benefits of the procedure, informedwritten and verbal consent were obtained. With the patient positioned prone on the fluoroscopy table, the L3-L4 interspace was localized using physical landmarks and fluoroscopy. The overlying skin was then prepped and draped in a sterile surgical fashion. A preprocedural timeout was performed per [facility] protocol. The patient's skin was anesthetized using less than 5 cc of 1% lidocaine without epinephrine. A 20-gauge, 3 1/2 inch spinal needle was advanced into the subarachnoid space, which was confirmed with return of clear cerebral spinal fluid. Opening pressure was not measured. A total of 9 cc of clear cerebral spinal fluid was collected and divided into four tubes. These tubes were sent for laboratory analysis, as per the ordering physician. After the fluid was collected, the stylet was replaced and the spinal needle removed. There were no immediate complications. The patient was instructed tolie flat for one hour following this procedure. COMPARISON: Lumbar radiographs dated 09/01/2008. FINDINGS: 9 cc of clear cerebrospinal fluid. FLUOROSCOPY TIME: 0.07 minutes Successful fluoroscopically-guided lumbar puncture without immediate complication. 9 cc of clear CSFwere sent to the laboratory for evaluation. XR Chest Pa Or Ap 1 View [...] cardiopulmonary process. Pending Studies and Lab Data: None Discharge Condition: Stable Discharge to: Home Discharge Medications: Your Medications New Medications Dose Details aspirin 81 mg Chew Take 81 mg by mouth daily. Start taking on: 03/27/2019 81 mg Quantity: 30 tablet Refills: 3 Continued medications, unchanged Dose Details amLODIPine 10 mg Tab Commonly known as: [...] 60 tablet Refills: 3 Miscellaneous Medical Supply [facility] Blood pressure cuff - one Quantity: 1 each Refills: 0 STOPPED Medications naproxen 500 mg Tab Commonly known as: NAPROSYN Updated Allergies/ADRs: Allergies Allergen Reactions ??? Toradol [Ketorolac] Shortness Of Breath SOB. Per patient. ??? Aspirin CIS - shortness of breath Follow-up Recommendations for Providers: Please have the patient follow-up with Neurosurgery clinic in 2 weeks. Incision: No incision. Imaging: No follow-up imaging needed. Outpatient referrals: No referrals at this time. No referral phone numbers needed. Additional medical concerns, should be brought to PCP. Instructions Given to Patient at Discharge: Patient Instructions ANGIOGRAM DISCHARGE INSTRUCTIONS PRESCRIPTION INSTRUCTIONS: Please see the medication reconciliation list on this discharge summary for a current list of your medications. WHEN TO SEEK MEDICAL CARE: Signs or symptoms of an infection - Fever over 101F - Redness, swelling, or increasing pain around your puncture site - Drainage of pus or blood from your puncture site Headaches - Headaches that are not relieved with pain medications, progressively worsen, or are severe New neurologic symptoms - New unsteadiness when walking - New weakness or sensory changes to one side of your body - Facial droop - Slurred speech or difficulty speaking - Confusion - Seizure - Any other [...] least 2 weeks. - Do not drive while taking any narcotic pain medication, if prescribed. FOLLOW UP PLAN: Please call the Neurosurgery Office at [phone] if you do not receive a scheduled return time. You will follow-up with Dr. Persaud. HOW TO REACH NEUROSURGERY Office Hours: Friday through Friday, 8am-5pm. Call . On weekends or after office hours: Call [phone] and ask the swing type lathe operator to page the NeurosurgeryResident smoke control supervisor. IMPORTANT PHONE NUMBERS: Outpatient Nurse (Corine Salazar) Inpatient Nurses Neurosurgical Resident On-Call (after 5pm or before 8am) Neurosurgery offices (Friday through Friday between 8am-5pm): Adult Neurosurgery Dr. Tee Gomez Pediatric Neurosurgery Dr. Paul Miguel Associate Providers Larisa Zhou, Nurse Practitioner Paul Samuels, Physician Is Support Analyst Scott Rose, Nurse Practitioner Jacque Rodriguez, Nurse Practitioner Bette Okeefe, Nurse Practitioner Kaye Gallardo, Nurse Practitioner * Your surgeon may not be call out clerk, so be ready to tell about yourself and your surgery when you call, especially after hours or on the weekend. Scott Rose APRN 03/26/2019 documented in this encounter Discharge Instructions Discharge InstructionsSavanah Rodriguez RN - 03/25/2019 8:34 AM EDT [facility] Interventional Radiology Post Angiography Instructions Procedure: Cerebral Angiogram Puncture Site: Rt groin Date: 03/25/19 Physician: Dr Yanez, Dr Persaud 1. At home we advise you to rest quietly in bed or on the couch with your hip straight until the next morning. Until the next morning you may get up only to go to the bathroom. 2. Resume your previous diet. Drink 6-8 ounces of fluid per hour for the next 8 hours. Avoid alcoholic or caffeinated beverages for 24 hours. 3. Avoid strenuous activity for the next 48 hours, particularly in the next 24 hours. Stair climbingshould be kept to a minimum. Do not lift objects heavier than 10-15 pounds for the next 48 hours Avoid straining for bowel movements as you can pop open the clot that has formed on the artery. 4. If you develop bulging under the skin or bleeding at the puncture site, put direct pressure on the puncture site for 15 minutes and call your doctor. If the bleeding persists, reapply pressure, and go to your local Emergency Department. 5. If you notice a sudden change in the feeling (numbness, tingling and/or pain) of your leg on the side of the puncture call your doctor. 6. You may develop a bruise at the puncture site. This should go away within a week to 10 days. If abulge develops after the first three days, call your doctor or the Radiology/Vascular Department here. Report signs of infection (redness, swelling, discharge, soreness, or fever) to your doctor. 7. Leave the bandage on for 24-48 hours. You may shower the following day after the procedure. You should NOT swim or tub bathe for [address] for 24 hours after the procedure. Do not sign any important documents or smoke unattended for 24 hours. You may return to work with the above restrictions on . 9. If you have any questions or concerns, please call Interventional Radiology Department at until 6pm. After 6pm, or on weekends or hoildays, call and ask for the sales consultant residential manager smoke control supervisor. OR Vascular Department at until 4:45pm. After 4:45pm call and ask for the Vascular resident smoke control supervisor. 10. If you are a diabetic and take Metformin or Janumet, Do not take it for 2 days after the procedure. XX You have received medication during your procedure to help lesson anxiety and keep you comfortable and which affects judgement and reaction time. We recommend that you do not drive, operate equipment, sign any important documents, or smoke unattended for 24 hours following your procedure. Because of the sedation please be careful on stairs, as you may be unsteady on your feet. You may resume your regular diet as tolerated. IV site -- slight redness, or tenderness is normal, you can use a warm compress. If tenderness and redness increases or foul drainage occurs, please contact your M. D. Revised 12/15/15 Patient InstructionsScott Rose APRN - 03/26/2019 7:06 AM EDT ANGIOGRAM DISCHARGE INSTRUCTIONS PRESCRIPTION INSTRUCTIONS: Please see the medication reconciliation list on this discharge summary for a current list of your medications. WHEN TO SEEK MEDICAL CARE: Signs or symptoms of an infection - Fever over 101F - Redness, swelling, or increasing pain around your puncture site - Drainage of pus or blood from your puncture site Headaches - Headaches that are not relieved with pain medications, progressively worsen, or are severe New neurologic symptoms - New unsteadiness when walking - New weakness or sensory changes to one side of your body - Facial droop - Slurred speech or difficulty speaking - Confusion - Seizure - Any other [...] least 2 weeks. - Do not drive while taking any narcotic pain medication, if prescribed. FOLLOW UP PLAN: Please call the Neurosurgery Office at [phone] if you do not receive a scheduled return time. You will follow-up with Dr. Persaud. documented in this encounter Medications at Time of Discharge Medication Sig Dispensed Refills Start Date End Date amLODIPine (NORVASC) 10 Take 1 tablet by [...] each 0 03/18 Supply Misc - one aspirin 81 mg Tablet, Take 81 mg by mouth 30 tablet 3 03/2704/21/2019 Chewable daily. documented as of this encounter Progress Notes Kang Woody RN - 03/26/2019 3:20 PM EDT Patient discharged home per order. All IV's and monitoring d/c'd and removed. AVS reviewed with patient and he verbalizes that he has no questions at this time. Patient states he has all belongings in which he came with. VSS upon discharge. Pt refused wheelchair and will provide own transport to vehicle. Rose Smith RN - 03/26/2019 12:19 PM EDT recycled Katlyn Enriquez DT - 03/26/2019 11:49 AM EDT Nutrition Services - Initial Note Jaime Guzman : 1975 AGE: 43 y.o. Patient Active Problem List Diagnosis Date Noted ??? 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 Hospital-Intracranial aneurysm 03/24/2019 ??? Headache 03/13/2019 Reason for Nutrition Intervention: Patient Eating in ICU Diet Order: Regular Appetite: Good per pt Food allergies: NKFA Chewing/Swallowing difficulty: none per pt Ht Readings from Last 3 Encounters: 03/24/19 182.9 cm (6') 03/24/19 177.8 cm (5' 10) 03/13/19 177.8 cm (5' 10) Wt Readings from Last 3 Encounters: 03/24/19 112.4 kg (247 lb 12.8 oz) 03/24/19 115 kg (253 lb 8.5 oz) 03/13/19 111.6 kg (246 lb 0.5 oz) Body mass index is 33.61 kg/m??. Assessment: Patient seen for ICU admit. Patient denies need for nutrition education. He reported a very good appetite without difficulty chewing or swallowing. He is tolerating current diet without nausea or vomiting. Patient stated he ate 100% of breakfast this morning 03/26, which consisted of latvian toast, sausage links and bagel w/ cream cheese. 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 Patient had no further questions at this time. Encouraged patient to contact Food and Nutrition services with any questions that may arise. Last noted bowel movement 03/25/19. Nutrition Plan: Continue current diet. Recommend Daily Multi Vitamins. Monitor weight. Encourage good po intake. Support and encouragement provided. Nutrition services to follow weekly thru hospital course unless consulted in the interim. PINEDA LimaR Pager# [phone] Bang Price MD - 03/26/2019 3:55 AM EDT NEUROSURGERY PROGRESS NOTE ID: Jaime Guzman is a 43 y.o. male with unruptured intracranial artery aneurysms in setting of recentthunderclap headache. Work up negative for acute stroke or hemorrhage. LP negative for RBCs and xanthochromia. HD# 2 POD # PAD# 1 INTERVAL HX/ROS: No acute events reported overnight. Patient has no complaints this morning. Patient is neurologically stable. DSA completed yesterday without evidence of vasospasm ASA trial completed given h/o allergy. No adverse reaction noted Patient stable and transferred to NSCU do to need for ICU beds Tmax: Temp (24hrs), Av.7 ??C (98 ??F), Min:36.2 ??C (97.2 ??F), Max:37 ??C (98.6 ??F) ROS: Patient denies fever, chills, headache, nausea, vomiting, and bowel or bladder symptoms. MEDICATIONS: Scheduled Meds: ??? acetaminophen 1,000 mg Oral Q6H JOHNSON Or ??? acetaminophen 975 mg Rectal Q6H JOHNSON ??? amLODIPine 10 mg Oral Daily ??? lisinopril 10 mg Oral Daily ??? melatonin 6 mg Oral Nightly ??? senna-docusate 2 tablet Oral BID ??? famotidine 20 mg Oral BID Or ??? famotidine 20 mg Intravenous BID Continuous Infusions: ??? sodium chloride 0.9% infusion 125 mL/hr Intravenous Continuous ### PRN Meds: hydrOXYzine, diphenhydrAMINE, montelukast, albuterol, polyethylene glycol, bisacodyl, bisacodyl, magnesium hydroxide, ondansetron OR ondansetron, labetalol, hydrALAZINE EXAM: Vitals: Patient Vitals for the past 24 hrs: Temp Pulse Resp BP SpO2 O2 Flow Rate (L/min) O2 Device 03/25/19 0408 36.6 ??C (97.8 ??F) 73 22 126/76 97 % -- RA 03/25/19 0600 -- 65 15 119/73 98 % -- RA 03/25/19 0711 36.2 ??C (97.2 ??F) -- 14 132/85 97 % -- RA 03/25/19 0815 -- 61 12 (!) 164/105 98 % -- RA 03/25/19 0820 -- 62 16 153/90 96 % -- RA 03/25/19 0825 -- 64 13 151/87 96 % -- RA 03/25/19 0830 -- 68 14 150/89 98 % 2 L/min NC 03/25/19 0835 -- 75 16 151/89 98 % 2 L/min NC 03/25/19 0840 -- 74 15 (!) 160/91 97 % 2 L/min NC 03/25/19 0845 -- 73 13 (!) 150/95 96 % 2 L/min NC 03/25/19 0850 -- 65 13 (!) 157/94 97 % 2 L/min NC 03/25/19 0855 -- 71 14 (!) 139/95 98 % 2 L/min NC 03/25/19 0900 -- 71 16 155/89 97 % 2 L/min NC 03/25/19 0905 -- 68 13 140/81 97 % 2 L/min NC 03/25/19 0910 -- 73 16 (!) 152/94 96 % -- RA 03/25/19 0915 -- 74 11 154/86 96 % -- RA 03/25/19 0920 -- 74 19 (!) 159/93 96 % -- RA 03/25/19 0925 -- 78 20 (!) 161/96 97 % -- RA 03/25/19 0930 -- 77 20 (!) 165/115 96 % -- RA 03/25/19 0935 -- 71 22 (!) 172/112 98 % -- RA 03/25/19 0940 -- 76 18 (!) 181/108 99 % -- RA 03/25/19 0945 -- 83 26 (!) 186/118 97 % -- RA 03/25/19 0950 -- 84 24 (!) 186/116 96 % 3 L/min NC 03/25/19 0955 -- 75 13 (!) 173/104 93 % 3 L/min NC 03/25/19 1000 -- 77 18 (!) 173/106 97 % 3 L/min NC 03/25/19 1005 -- 77 14 (!) 170/105 96 % 3 L/min NC 03/25/19 1010 -- 74 12 (!) 175/94 97 % 2 L/min NC 03/25/19 1015 -- 68 18 -- 98 % -- RA 03/25/19 1029 -- -- 18 (!) 145/92 93 % -- RA 03/25/19 1045 -- -- 18 140/85 95 % -- RA 03/25/19 1100 -- -- 18 149/86 96 % -- RA 03/25/19 1115 -- -- 18 149/69 98 % -- RA 03/25/19 1220 -- 70 22 (!) 194/93 96 % -- -- 03/25/19 1235 -- -- -- 190/85 96 % -- -- 03/25/19 1245 -- -- -- (!) 177/94 97 % -- -- 03/25/19 1306 -- -- 20 147/84 98 % -- RA 03/25/19 1315 -- 88 16 -- 98 % -- RA 03/25/19 1330 36.6 ??C (97.9 ??F) 75 16 125/79 98 % -- RA 03/25/19 1345 -- 81 21 -- 98 % -- RA 03/25/19 1400 -- 74 14 155/73 96 % -- RA 03/25/19 1430 36.6 ??C (97.9 ??F) 86 21 167/84 99 % -- RA 03/25/19 1500 -- 71 16 136/87 98 % -- RA 03/25/19 1530 36.6 ??C (97.9 ??F) 69 15 141/73 97 % -- RA 03/25/19 1600 -- 68 18 139/84 96 % -- RA 03/25/19 1630 -- 74 18 (!) 140/101 98 % -- -- 03/25/19 1651 36.7 ??C (98.1 ??F) 69 17 -- 99 % -- RA 03/25/19 1700 37 ??C (98.6 ??F) 70 19 144/68 97 % -- -- 03/25/19 1800 -- 73 16 148/76 98 % -- -- 03/25/19 1847 -- 78 16 -- 96 % -- -- 03/25/19 1900 -- 81 17 (!) 136/91 98 % -- -- 03/25/191999 36.9 ??C (98.4 ??F) 84 13 143/86 97 % -- RA 03/25/19 2111 -- 89 17 (!) 164/96 -- -- -- 03/25/19 2200 36.6 ??C (97.9 ??F) 79 11 121/61 97 % -- RA 03/25/19 2300 -- 84 18 122/66 96 % -- -- 03/26/19 0000 36.9 ??C (98.4 ??F) 89 19 119/64 96 % -- RA 03/26/19 0035 36.9 ??C (98.4 ??F) -- -- -- -- -- RA BMI: Weight: 112.4 kg (247 lb 12.8 oz) (03/24/19 1656) BMI (Calculated): 33.6 BMI Classification: Obese I/O: I/O last 3 completed shifts: In: 1915 [P.O.:650; I.V.:1265] Out: 1425 [Urine:1425] GEN:NAD NEURO:AA+Ox3 Speech fluent and appropriate. Naming and repetition intact. PERRL. EOMI. Visual jacobson full to confrontation. No facial asymmetry Tongue midline MOTOR: RUE:5/5 LUE:5/5 RLE: 5/5 LLE: 5/5 No pronator drift LT sensation intact x 4 LABS: Recent Labs 03/26/19 0015 03/25/19 01503/24/19 1800 WBC 8.7 8.3 8.4 HGB 14.1 14.1 14.5 PLATELET 233 223 236 Recent Labs 03/26/19 0015 03/25/19 0156 04/24/19 1800 NA 141 140 143 K 3.6 4.2 3.8 CL 106 106 108* CO2 25 24 25 BUN 12 15 17 CREATININE 0.64* 0.69* 0.74* Recent Labs 03/24/19 1800 PT 11.9 INR 1.0 IMAGING: CT head wo contrast 03/14/2019 No acute intracranial process. Known fusiform aneurysm again identified. ?? CT angiogram head 03/13/2019 R intracranial vertebral artery fusiform aneurysm with maximal diameter about 8 mm. Small anterior communicating artery aneurysm. ?? CT head wo contrast 03/13/2019 No acute intracranial process. ?? Films personally reviewed / reviewed with radiologist ?? Impression: 43 year old male with two intracranial artery aneurysms in setting of recent thunderclap headache. Work up negative for acute stroke or hemorrhage. LP negative for RBCs and xanthochromia. However, continued significant headache, neck pain, and photophobia. Aneurysms warrant further investigation with DSA. ?? Problem List: Intracranial aneurysm History of hypertensive emergency History of worst headache of life Headache Neck pain Photophobia ?? Plan: Q2h neuro checks Continue home oral antihypertensives, IV meds prn Likely ok to transfer to today Will plan for treatment of aneurysm at a later date Dispo planning PLEASE PAGE [phone] WITH QUESTIONS Active Hospital Problems Diagnosis ??? Intracranial aneurysm Resolved Hospital Problems No resolved problems to display. Active Non-Hospital Problems Diagnosis ??? Aneurysm of vertebral artery ??? Headache Bang Price MD 03/26/2019 Gurmeet Dubon RN - 03/26/2019 12:46 AM EDT Jaime Guzman arrived to [facility] Oriented to room, call barney within reach, educated on importance of using prior to getting OOB, AVSS, bed locked in low position, purposeful hourly rounding, bed/chair alarm on. Will continue to monitor and with POC. EYT Gurmeet Dubon RN - 03/26/2019 12:04 AM EDT Report received form Jaya ESCALANTE by phone. All questioned answered. Abhijeet Cotto MD - 03/25/2019 1:52 PM EDT Patient Name: Jaime Guzman Patient Age: 43 y.o. Birthdate: 1975 Admit date: 03/24/2019 Attending Physician: Hardeep Persaud MD Surgical Critical Care Staff Progress Note ? - I have personally seen and examined the patient on critical care multidisciplinary rounds. ?? - I independently reviewed all data and labs, and directly visualized the pertinent radiological images themselves. Jaime Guzman is a 43 y.o. with the following medical issues: Active Hospital Problems Diagnosis ??? Intracranial aneurysm Resolved Hospital Problems No resolved problems to display. Past Medical History: Diagnosis Date ??? 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 Headache 03/13/2019 ??? Intracranial aneurysm 03/24/2019 Past Surgical History: Procedure Laterality Date ??? XR FLUORO LUMBAR PUNCTURE DIAGNOSIS N/A 03/13/2019 XR Fluoro Lumbar Puncture 03/13/2019 [facility] RAD XRAY Current Medications: ??? acetaminophen 1,000 mg Oral Q6H JOHNSON Or ??? acetaminophen 975 mg Rectal Q6H JOHNSON ??? amLODIPine 10 mg Oral Daily ??? lisinopril 10 mg Oral Daily ??? melatonin 6 mg Oral Nightly ??? senna-docusate 2 tablet Oral BID ??? famotidine 20 mg Oral BID Or ??? famotidine 20 mg Intravenous BID Current Facility-Administered Medications Medication Dose Route Frequency ??? hydrOXYzine (ATARAX) tablet 25 mg 25 mg Oral Q4H PRN ??? polyethylene glycol (MIRALAX) packet 17 g 17 g Oral Daily PRN ??? bisacodyl (DULCOLAX) EC tablet 10 mg 10 mg Oral BID PRN ??? bisacodyl (DULCOLAX) suppository 10 mg 10 mg Rectal Daily PRN ??? magnesium hydroxide (Milk of Magnesia) (240 mg/mL) oral liquid 10 mL 10 mL Oral Daily PRN ??? ondansetron (ZOFRAN) tablet 4-8 mg 4-8 mg Oral Q8H PRN Or ??? ondansetron (ZOFRAN) injection 4-8 mg 4-8 mg Intravenous Q8H PRN ??? labetalol (NORMODYNE,TRANDATE) injection 10-20 mg 10-20 mg Intravenous Q1H PRN ??? hydrALAZINE (APRESOLINE) injection 10 mg 10 mg Intravenous Q1H PRN ??? sodium chloride 0.9% infusion 125 mL/hr Intravenous Continuous ### 24 Hour events: ?? Recently found to have a right vertebral and JUAN CARLOS aneurysm after a severe headache and LOC. ?? Was hypertensive to 192 and treated to lower his blood pressure ?? LP negative for blood ?? Continued to complain of EGAN and photophobia ?? Underwent angiogram today in preparation for definitive treatment Strong FH of aneurysm GF of cerebral hemorrhage GM Renal art aneurysm Uncles from AAA ?? Admitted to the ICU due to need to institute ASA therapy. Tolerated ASA as a child but took at age 21 and developed resp distress requiring an ED visit. ?? He received a dose of toradol recently (cannot find in records) that also resulted in chest tightening He denies Allergy, sinusitis or nasal polyps EXAM: Last value Range last 24 hrs Temperature Temp: 36.2 ??C (97.2 ??F) Temp: [36.2 ??C (97.2 ??F)-37 ??C (98.6 ??F)] Heart Rate Heart Rate: 88 Heart Rate: [61-88] Blood Pressure BP: 147/84 BP: (116-194)/(53-118) Respiratory Rate Resp: 16 Resp: [11-26] SpO2 SpO2: 98 % SpO2: [93 %-99 %] Art BP BP (Arterial Line): -- Intake/Output Summary (Last 24 hours) at 03/25/2019 1353 Last data filed at 03/25/2019 1004 Gross per 24 hour Intake 1280 ml Output -- Net 1280 ml General: Awake alert with headache HEENT: Neck: Lungs: symmetric BS, no wheezing Chest: no distress Heart: RRR no murmers non tachycardic Abd: soft, nontender Extremities: Neuro: Awake, alert, appropriate, conversant 5/5 strength in hand grasp, bicep, tricep, ankle dorsi plantar flexion bilaterally Laboratory: Lab Results Component Value Date WBC 8.3 03/25/2019 Hemoglobin 14.1 03/25/2019 Hematocrit 40.7 03/25/2019 Platelets 223 03/25/2019 Lab Results Component Value Date Sodium 140 03/25/2019 Potassium 4.2 03/25/2019 Chloride 106 03/25/2019 CO2 24 03/25/2019 BUN 15 03/25/2019 Creatinine 0.69 (L) 03/25/2019 Glucose Lvl 107 03/25/2019 Microbiology: Imaging: Other Studies: Diagnoses: ?? Cerebral aneurysm ?? Possible ASA allergy Assessment/Plan: ?? Neurologic: ?? Plan is to begin ASA therapy with [address] day [address] Persaud. He feels that 81 mg per day is satisfactory ?? Discussed plan for ASA administration with the Allergy Attending. She was in agreement with the plan below ?? Reviewed up to date with the following recommendations ?? Treat with montelukast 10 mg on hour prior to adminstration ?? Then give 40.5 mg ASA ?? Wait 90 minutes and repeat if no symptoms, then 81 mg per day ?? If develops symptoms ?? Repeat montelukast ?? Prednisone 40 mg ?? Albuterol for wheezing ?? Continue to monitor neurologic status Pulmonary: No issues. Stopped smoking (prior 20 pack years) but stopped at [place] Cardiovascular: ?? Has relatively severe pre-existing hypertension ?? Continue amlodipine and lisinopril ?? Was being evaluated for possible pheochromocytoma - meta and normetanepherines negative for pheo. ?? GI: ?? Regular diet ?? PUD px: Famotidine ?? Bowel regimen ?? : ?? Follow UOP, BUN, creatinine ?? Daily weights ?? Hematologic: ?? Mechanical DVT px SCD ?? Pharmacologic DVT px: ?? Infectious Disease: ?? Antibiotics: None indicated ?? Cultures: ?? Musculoskeletal: ?? Activity: Bed rest with recent angiogram ?? OOB/PT/OT Condition/disposition: ICU status Code Status: Family discussion: Multi-discipline discussion: RN was part of rounds. ?? ABHIJEET COTTO MD@ 1:53 PM I personally performed [35] minutes of aggregate critical care time exclusive of procedures and teaching.??This includes time spent during direct patient evaluation and reassessment, interpreting diagnostic tests, directing life and/or organ supporting interventions and documentation on the unit. TimeI spent with family or surrogate(s) is only included if the patient was incapable of providing the necessary information or participating in medical decision making and the information or a decision regarding treatment options was immediately necessary. ?? IS PATIENT CRITICALLY ILL ? Is there a high potential of sudden, clinically significant, or life threatening deterioration? NO ?? Is there a need for direct personal assessment and management to treat/prevent multiple vital organfailure/deterioration? NO ?? Gabriela Joyner RN - 03/25/2019 1:37 PM EDT Pt arrives to angio recovery with no neuro deficits. C/o 10/10 [place] shoulder pain and 4/10 head ache pain. Monitor per protocol. 1115 pt c/o 10/10 right neck and head pain this is new . md Yanez aware and at bedside. Pt no with Increased bp. No neuro changes noted with this increased pain or bp. rx as charted for anxiety andheadache pain. Report given to NSCU grace Bates. All questions answered. Lunch coverage provided by Savanah. upon return from break. Report received. Pt cont to have 10/10 head and shoulder pain. bp elevated as charted. Pt now being transferred to ICU 8 for know ASA desensitization. Pt and family aware . This rn escorted pt via stretcher, settled in room. grace JORGE icu updated. Savanah Rodriguez RN - 03/25/2019 12:53 PM EDT Report given to Fernandez EDWARDS with floor nurse contact for further questions. Pt and family notified of plan of care, pt transferred by stretcher to room on monitor with Gabriela EDWARDS. Savanah Rodriguez RN - 03/25/2019 12:[address] Quinn called to ask about giving Aspirin per order. Dr Quinn informed of Aspirin allergy. Dr Quinn stated critical care and anesthesia is aware. We wanted to give Aspirin as a test while in recovery and pt can be watched closely. This nurse talked with Angio advertiser. Determined that pt should be in critical care for test with 1:1 ratio due to pt history of anaphylaxis with Toradol. Dr Quinn notified and agreed at this time with plan. Pt and family updated with plan to move pt to critical care. Savanah Rodriguez RN - 03/25/2019 8:32 AM EDT To procedure room 4 via stretcher. Onto table supine (position) All monitors, O2, safety strap in place. Med's per protocol. Angio only post procedure: Time sheath removed: Side: Rt Closure device used: Hematoma present? Site release time: Anticipated up time: Savanah Rodriguez RN - 03/25/2019 8:31 AM EDT ANGIO NURSING DATABASE Name: JAIME GUZMAN Date of : 1975 AGE: 43 y.o. [address]: [address] [place] [id number] (home) Mobile: Telephone Information: Referring Provider: No ref. provider found REASON FOR VISIT: Aneursym Allergies Allergen Reactions ??? Aspirin CIS - shortness of breath Pertinent PMH: Patient Active Problem List Diagnosis Code ??? Headache R51 ??? 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 Intracranial aneurysm I67.1 Pertinent PSH: Past Surgical History: Procedure Laterality Date ??? XR FLUORO LUMBAR PUNCTURE DIAGNOSIS N/A 03/13/2019 XR Fluoro Lumbar Puncture 03/13/2019 [facility] RAD XRAY Date/Procedure Meds given/comments 03/25/19 DX Cerebral Angiogram Versed 4mg, Fentanyl 250mcg, Heparin 3000units Laboratory Results: Lab Results Component Value Date INR 1.0 03/24/2019 Lab Results Component Value Date CREATININE 0.69 (L) 03/25/2019 Lab Results Component Value Date K 4.2 03/25/2019 Lab Results Component Value Date PLATELET 223 03/25/2019 Medications: Prior to Admission medications Medication Sig Start Date End Date Taking? Authorizing Provider amLODIPine (NORVASC) 10 mg Tablet Take 1 tablet by mouth daily. 03/19/19 Prior, Michele Maria MD hydrOXYzine (ATARAX) 25 mg Tablet Take 1 tablet by mouth daily as needed (headaches). 03/18/19 Prior,Michele Maria MD lisinopril (PRINIVIL;ZESTRIL) 10 mg Tablet Take 1 tablet by mouth daily. 03/19/19 Prior, Michele Maria MD melatonin 3 mg Tablet Take 2 tablets by mouth nightly. 03/18/19 Prior, Michele Maria MD naproxen (NAPROSYN) 500 mg Tablet Take 1 tablet by mouth 2 times daily as needed (limit use to two times per week). 03/18/19 Prior, [facility] MD [facility] Blood pressure cuff - one 03/18/19 Prior, Michele Maria MD Briseida Fuchs RN - 03/25/2019 6:57 AM EDT This RN gave report to Katharina in Angio. Dr. Quinn in pt's room for consent and questions. Bang Price MD - 03/25/2019 5:41 AM EDT NEUROSURGERY PROGRESS NOTE ID: Jaime Guzman is a 43 y.o. male with unruptured intracranial artery aneurysms in setting of recentthunderclap headache. Work up negative for acute stroke or hemorrhage. LP negative for RBCs and xanthochromia. HD# 1 POD # INTERVAL HX/ROS: No acute events reported overnight. Patient has no complaints this morning. Patient is neurologically stable. Tmax: Temp (24hrs), Av.7 ??C (98.1 ??F), Min:36.5 ??C (97.7 ??F), Max:37 ??C (98.6 ??F) ROS: Patient denies fever, chills, headache, nausea, vomiting, and bowel or bladder symptoms. MEDICATIONS: Scheduled Meds: ??? amLODIPine 10 mg Oral Daily ??? lisinopril 10 mg Oral Daily ??? melatonin 6 mg Oral Nightly ??? senna-docusate 2 tablet Oral BID ??? famotidine 20 mg Oral BID Or ??? famotidine 20 mg Intravenous BID Continuous Infusions: ??? sodium chloride 0.9% infusion 75 mL/hr Intravenous Continuous ### PRN Meds: hydrOXYzine, polyethylene glycol, bisacodyl, bisacodyl, magnesium hydroxide, ondansetron OR ondansetron, acetaminophen OR acetaminophen, labetalol, hydrALAZINE EXAM: Vitals: Patient Vitals for the past 24 hrs: Temp Pulse Resp BP SpO2 O2 Device 03/24/191655 36.7 ??C (98.1 ??F) 80 18 147/79 98 % 03/24/19 1951 37 ??C (98.6 ??F) -- -- -- -- -- 03/24/19 2000 -- 74 23 151/56 98 % 03/24/19 2200 36.5 ??C (97.7 ??F) 68 24 130/65 97 % RA 03/25/19 0000 -- 69 16 116/53 95 % RA 03/25/19 0200 -- -- -- -- -- 03/25/19 0408 36.6 ??C (97.8 ??F) 73 22 126/76 97 % RA BMI: Weight: 112.4 kg (247 lb 12.8 oz) (03/24/19 165) BMI (Calculated): 33.6 BMI Classification: Obese I/O: I/O last 3 completed shifts: In: 360 [P.O.:360] Out: - GEN:NAD NEURO:AA+Ox3 Speech fluent and appropriate. Naming and repetition intact. PERRL. EOMI. Visual jacobson full to confrontation. No facial asymmetry Tongue midline MOTOR: RUE:5/5 LUE:5/5 RLE: 5/5 LLE: 04/04 No pronator drift LT sensation intact x 4 LABS: Recent Labs 03/25/19 0156 03/24/19 1800 WBC 8.3 8.4 HGB 14.1 14.5 PLATELET 223 236 Recent Labs 03/25/19 0156 03/24/19 1800 NA 140 143 K 4.2 3.8 CL 106 108* CO2 24 25 BUN 15 17 CREATININE 0.69* 0.74* Recent Labs 03/24/19 1800 PT 11.9 INR 1.0 IMAGING: CT head wo contrast 03/14/2019 No acute intracranial process. Known fusiform aneurysm again identified. ?? CT angiogram head 03/13/2019 R intracranial vertebral artery fusiform aneurysm with maximal diameter about 8 mm. Small anterior communicating artery aneurysm. ?? CT head wo contrast 03/13/2019 No acute intracranial process. ?? Films personally reviewed / reviewed with radiologist ?? Impression: 43 year old male with two intracranial artery aneurysms in setting of recent thunderclap headache. Work up negative for acute stroke or hemorrhage. LP negative for RBCs and xanthochromia. However, continued significant headache, neck pain, and photophobia. Aneurysms warrant further investigation with DSA. ?? Problem List: Intracranial aneurysm History of hypertensive emergency History of worst headache of life Headache Neck pain Photophobia ?? Plan: Admit to NSCU Q2h neuro checks Plan for angiogram tomorrow Continue home oral antihypertensives, IV meds prn PLEASE PAGE [phone] WITH QUESTIONS Active Hospital Problems Diagnosis ??? Intracranial aneurysm Resolved Hospital Problems No resolved problems to display. Active Non-Hospital Problems Diagnosis ??? Aneurysm of vertebral artery ??? Headache Bang Price MD 03/25/2019 Jana Lambert RN - 03/24/2019 5:35 PM EDT Jaime Guzman arrived to 521 @ 1700 from the neuro clinic. Oriented to room, call barney within reach, educated on importance of using prior to getting OOB, AVSS, belongings updated in eDH, bed locked in low position, purposeful hourly rounding, bed/chair alarm on. EGAN treated with ice and tylenol. documented in this encounter H&P Notes Ryland Luo MD - 03/25/2019 12:21 PM EDT SURGICAL CRITICAL CARE SERVICE ADMISSION HISTORY AND PHYSICAL PGY-1 Date: 03/25/19 ID: Jaime Guzman, 43 y.o. male : 1975 Hospital Admission Date: 03/24/19 LOS: 1 Reason for SICU admission: ASA challenge (h/o of aspirin allergy) History of Present Illness: Jaime Guzman ( ) is a 43 y.o. male with a PMH of HTN, migraine headaches, h/o spinal surgery s/p ANNELIESE bone stimulator (unable to get MRI) who developed thunderclap EGAN, HTN urgency to 190s on 03/13 found to have two unruptured aneusyms (5mm Acomm aneurysm, 8mm R vert aneurysm) with CT neg for hemorrhage and IR guided LP neg for xanthrochromia, subsequently discharged by neurology on 03/18. On 03/24, admitted to NSCU from neurosurgery clinic due to persistent EGAN fordiagnostic angiogram, which was completed today and demonstrated no vasospasm. The primary team would like to administer ASA but the patient has a document history of allergy to ASA, and so the plan isto administer in the ICU with close monitoring. On admission to SICU, pt is hemodynamically stable on RA. Reports moderate headache and photophobia. Current Medications: Scheduled Meds: ??? aspirin 325 mg Oral Once ??? amLODIPine 10 mg Oral Daily ??? lisinopril 10 mg Oral Daily ??? melatonin 6 mg Oral Nightly ??? senna-docusate 2 tablet Oral BID ??? famotidine 20 mg Oral BID Or ??? famotidine 20 mg Intravenous BID Continuous Infusions: ??? sodium chloride 0.9% 75 mL/hr (03/24/19 2200) PRN Meds: Current Facility-Administered Medications Medication Dose Route Frequency ??? hydrOXYzine (ATARAX) tablet 25 mg 25 mg Oral Daily PRN ??? polyethylene glycol (MIRALAX) packet 17 g 17 g Oral Daily PRN ??? bisacodyl (DULCOLAX) EC tablet 10 mg 10 mg Oral BID PRN ??? bisacodyl (DULCOLAX) suppository 10 mg 10 mg Rectal Daily PRN ??? magnesium hydroxide (Milk of Magnesia) (240 mg/mL) oral liquid 10 mL 10 mL Oral Daily PRN ??? ondansetron (ZOFRAN) tablet 4-8 mg 4-8 mg Oral Q8H PRN Or ??? ondansetron (ZOFRAN) injection 4-8 mg 4-8 mg Intravenous Q8H PRN ??? acetaminophen (TYLENOL) tablet 650 mg 650 mg Oral Q4H PRN Or ??? acetaminophen (TYLENOL) suppository 650 mg 650 mg Rectal Q4H PRN ??? labetalol (NORMODYNE,TRANDATE) injection 10-20 mg 10-20 mg Intravenous Q1H PRN ??? hydrALAZINE (APRESOLINE) injection 10 mg 10 mg Intravenous Q1H PRN Past Medical History: Past Medical History: Diagnosis Date ??? 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 Headache 03/13/2019 ??? Intracranial aneurysm 03/24/2019 Past Surgical History: Past Surgical History: Procedure Laterality Date ??? XR FLUORO LUMBAR PUNCTURE DIAGNOSIS N/A 03/13/2019 XR Fluoro Lumbar Puncture 03/13/2019 [facility] RAD XRAY Allergies: Allergies Allergen Reactions ??? Aspirin CIS - shortness of breath Home Medications: Medications Prior to Admission Medication Sig Dispense Refill Last Dose ??? amLODIPine (NORVASC) 10 mg Tablet Take 1 tablet by mouth daily. 90 tablet 3 Taking ??? hydrOXYzine (ATARAX) 25 mg Tablet Take 1 tablet by mouth daily as needed (headaches). 30 tablet 12 Taking ??? lisinopril (PRINIVIL;ZESTRIL) 10 mg Tablet Take 1 tablet by mouth daily. 90 tablet 3 Taking ??? melatonin 3 mg Tablet Take 2 tablets by mouth nightly. 60 tablet 3 Taking ??? naproxen (NAPROSYN) 500 mg Tablet Take 1 tablet by mouth 2 times daily as needed (limit use to two times per week). 60 tablet 3 Taking ??? [employer] [facility] Blood pressure cuff - one 1 each 0 Taking Family History: No family history on file. [...] Narrative ??? Not on file Review of Systems: Positive as above, otherwise negative. Vitals: Last value Range last 24 hrs Temperature Temp: 36.2 ??C (97.2 ??F) Temp: [36.2 ??C (97.2 ??F)-37 ??C (98.6 ??F)] Heart Rate Heart Rate: 68 Heart Rate: [61-84] Cuff BP BP: 149/69 BP: (116-186)/(53-118) Arterial BP BP (Arterial Line): -- CVP CVP: -- Respiratory Rate Resp: 18 Resp: [11-26] SpO2 SpO2: 98 % SpO2: [93 %-99 %] Physical Exam: General: NAD Neurological: A&Ox3, full strength throughout. HEENT: Normocephalic Neck: Supple CV: Regular Pulm: Nonlabored breathing Abd: soft : No curry Musculoskeletal: No fractures Skin: WWP Labs: Recent Labs 03/25/19 0156 03/24/19 1800 WBC 8.3 8.4 HGB 14.1 14.5 HCT 40.7 40.8 PLATELET 223 236 Recent Labs 03/24/19 1800 PT 11.9 PTT 29 INR 1.0 Recent Labs 03/25/19 0156 03/24/19 1800 NA 140 143 K 4.2 3.8 CL 106 108* CO2 24 25 BUN 15 17 CREATININE 0.69* 0.74* GLUCOSE 107 156 Recent Labs 03/25/19 0156 03/24/19 1800 CALCIUM 8.6 9.0 No results for input(s): AST, ALT, ALKPHOS, BILITOT, BILIDIR, AMYLASE, LIPASE in the last 168 hours. No results for input(s): PHART, [id number], PO2ART, CHT5AMS, BEART in the last 168 hours. Assessment: 43M with unrupture Acomm and R vert aneurysm s/p diagnostic angio admitted to ICU for ASA challenge given history of anaphylaxis. On RA and HDS. Plan: Neuro: -q2 neuro checks -pain: tylenol sched, Atarax 25mg q4 PRN -Melatonin 6mg QHS -TCDs MWF x6 CV: SBP goal < 160, labetalol/hydral PRN -Cont home amlodipine 10mg QD, lisinopril 10mg QD Pulm: RA -ASA challenge (pretreatment with monelukast 10mg followed by 40mg x2 of ASA), monitor for reaction -Benadryl 50mg IV q6PRN -Albuterol q2 PRN -Montelukast 10mg PO QD PRN -Measure FEV1 FEN/GI: -NPO diet (Give Meds) mika ASA challange, NS @ 125 cc/hr -Pepcid 20mg BID -NBOs: pericolace BID, miralax/MoM/bulcolax PRN -Antiemetic: zofran 4-8mg q8 PRN : No Curry MSK: no active issues. ID: [id number] Heme: SCDs, hold SQH Endo: no active issues Prophylaxis: SCDs, hold SQH, GI ppx, NBOs Primary Service: Neurosurgery Consults: Allergy/immunology re ASA allergy Code Status: Full Code Dispo: Admit to ICU Ryland Luo MD 03/25/2019 12:24 PM Yong Quinn MD - 03/25/2019 7:03 AM EDT Images from the original note were not included. 24-HOUR UPDATE Jaime Guzman was seen in NSCU. No interval events or changes in health status since preoperative H+P (see EPIC). Denies angina/dyspnea/fevers or malaise within the last 14 days. All questions were answered. Stable for surgery as scheduled. Pre-Sedation Assessment: Planned procedure: DSA Indications: Aneurism Diagnosis: Aneurism Assessment: Cardiovascular: Rhythm: Regular Rate: Normal Pulmonary: Breath sounds clear to auscultation ASA: I Mallampati: II H&P reviewed: Yes Yong Quinn MD Paul Samuels PA - 03/24/2019 2:53 PM EDT Patient Name: Jaime Guzman Patient Age: 43 y.o. Birthdate: 1975 Admit date: 03/24/2019 Attending Physician: Hardeep Persaud MD Neurosurgery H&P / Consultation CC: Aneurysm HPI: Mr. 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 Plunkett. He was admitted from clinic for further workup and evaluation. As you know, Mr. Guzman is a pleasant 43 y.o. male who was recently found to have two intracranial aneurysms. These were discovered on work up for an episode of sudden severe headache with possible loss of consciousness which brought him to medical attention. Per discussion with patient and family and review of medical records, Mr. Guzman had sudden onset of severe headache on 03/13. He has a remote history of migraines in his teens and twenties, but no recent headache history, so this was out of the ordinary for him. He recalls receiving an ice pack from his girlfriend but cannot recall events following this. 911 was called and he was found face down. He presented initially to [facility]. He was noted to beconfused and lethargic with left sided weakness. His blood pressure was 192/101. CT scan of the head03/13 was negative for stroke or hemorrhage. CTA on 03/13 demonstrated the above mentioned aneurysms. He was given IV medication to bring his blood pressure down and he was transferred to [facility] for further evaluation and management. He was admitted to the Neurology service at [facility]. An LP was performed 03/13 which was negative for RBCs and xanthochromia. Repeat CT was performed on 03/14 and did not demonstrate any changes from prior again without evidence of hemorrhage or stroke. He was unable to have an MRI due to an implanted bone stimulator. EEG was performed and did not demonstrate any epileptic activity. His blood pressure was eventually well controlled with oral medications which he continues today. He underwent workup for pheochromocytoma which results were still pending at the time of discharge. His headache had improved significantly over the course of his hospitalization, but did not resolvefully. Currently, Mr. Guzman continues to complain of head and neck pain. Headache is not positional. +Photophobia. No back pain above his usual. HTN history: Hypertensive urgency during episode with no prior history of HTN. Currently treated with lisinopril and amlodipine. SBP today is 129. Smoking history: Former smoker with a 20 pack/year history Familial aneurysm history: Maternal grandfather - from cerebral hemorrhage Paternal grandmother - h/o renal artery aneurysm Paternal uncle x2 - from aortic aneurysm Medical History: Migraine Deaf in right ear Surgical History: L5-S1 exploration, non-instrumented fusion, placement of ANNELIESE bone stimulator L5-S1 diskectomy Partial thyroidectomy for nodule Right middle ear exploration Medications: Medications Prior to Admission Medication Sig Dispense Refill Last Dose ??? amLODIPine (NORVASC) 10 mg Tablet Take 1 tablet by mouth daily. 90 tablet 3 Taking ??? hydrOXYzine (ATARAX) 25 mg Tablet Take 1 tablet by mouth daily as needed (headaches). 30 tablet 12 Taking ??? lisinopril (PRINIVIL;ZESTRIL) 10 mg Tablet Take 1 tablet by mouth daily. 90 tablet 3 Taking ??? melatonin 3 mg Tablet Take 2 tablets by mouth nightly. 60 tablet 3 Taking ??? naproxen (NAPROSYN) 500 mg Tablet Take 1 tablet by mouth 2 times daily as needed (limit use to two times per week). 60 tablet 3 Taking ??? Miscellaneous Medical Supply [facility] Blood pressure cuff - one 1 each 0 Taking Allergies: Allergies Allergen Reactions ??? Aspirin CIS - shortness of breath Family History: Per HPI Social History: Social History Tobacco Use ??? Smoking status: Former Smoker Packs/day: 20.00 Years: 1.00 Pack years: 20.00 Types: Cigarettes ??? Smokeless tobacco: Never Used Substance Use Topics ??? Alcohol use: Not Currently ??? Drug use: Yes Frequency: 7.0 times per week Types: Marijuana Review of Systems: Per HPI Physical Exam: Blood pressure 129/84, pulse 75, height 177.8 cm (5' 10), weight 115 kg (253 lb 8.5 oz). Awake, alert, and in no acute distress Speech: appropriate and fluent; questions appropriately Cranial Nerves: II-XII grossly intact Motor: Normal muscle bulk and tone. No pronator drift. STRENGTH R L REFLEXES R L Shoulder Abduction 5 5 Biceps 1 1 Elbow Flexion 5 5 Brachiorad. 1 1 Elbow Extension 5 5 Triceps 1 1 Wrist Dorsiflexion 5 5 Finger Abduction 5 5 Patella 1 1 Rope Silica Machine Operator 5 5 Ankle 1 1 Hip Flexion 5 5 Knee Flexion 5 5 PATHOLOGIC Knee Extension 5 5 REFLEXES R L Ankle dorsiflexion 5 5 Leong's Absent Absent Ankle plantarflexion 5 5 Babinski Not tested Not tested Extensor hallucis 5 5 Clonus None None Sensation: Grossly intact to light touch in all four extremities. Cerebellar: No dysmetria with finger to nose testing bilaterally. Gait: Independent and stable. Unstable with tandem walking. Radiology: CT head wo contrast 03/14/2019 No acute intracranial process. Known fusiform aneurysm again identified. CT angiogram head 03/13/2019 R intracranial vertebral artery fusiform aneurysm with maximal diameter about 8 mm. Small anterior communicating artery aneurysm. CT head wo contrast 03/13/2019 No acute intracranial process. Films personally reviewed / reviewed with radiologist Impression: 43 year old male with two intracranial artery aneurysms in setting of recent thunderclap headache. Work up negative for acute stroke or hemorrhage. LP negative for RBCs and xanthochromia. However, continued significant headache, neck pain, and photophobia. Aneurysms warrant further investigation with DSA. Problem List: Intracranial aneurysm History of hypertensive emergency History of worst headache of life Headache Neck pain Photophobia Plan: Admit to NSCU under Dr. Persaud service Plan for angiogram tomorrow Transcranial dopplers today Continue home oral antihypertensives, IV meds prn JUAN BARDY 03/24/2019 documented in this encounter Miscellaneous Notes Care Management - Bia Castillo RN - 03/26/2019 3:24 PM EDT Team: Neurosurg Pager:[phone] Pt to d/c home via private vehicle. Pt/team feel no d/c needs identified at this time. Pt is aware of d/c plan. Bia Castillo MSN, RN CM formal service waiter Office of Care Management Pager #[phone] Initial Assessments - Bia Castillo RN - 03/26/2019 3:18 PM EDT Office of Care Management Assessment Medical record reviewed. Plan of care and patient status discussed with direct care RN and/or Care Team in multidisciplinary rounds. Screen[age] y.o. male here for Surgical intervention for intercranial aneurysm. . Present on Admission: ??? Intracranial aneurysm Patient has been admitted to a hospital within the last 30 days. Information known about that admission: Recent [facility] admit. Patient receiving hospital care under Inpatient status. Admission order reviewed. Primary Insurance on file: [employer] Secondary Insurance on file: N/A Primary care provider on file: Ryne Harris MD [phone] Advance Directive on file and Code Status: <no information>, Full Code Patient???s Functional Status:mod ind with ADL's and IADL's Living Situation:Lives with significant other in [facility]. [address] [facility] [id number] Supports:Significant other, family/friends Assessment: Patient with no apparent RNCM/SW needs at this time. No housing, transportation, insurance, resources concerns identified at this time. Supports in place to achieve a safe post-hospital transition. No identified barriers to accessing necessary care and/or follow-up after discharge. Plan: Patient to d/c to home via private vehilce when medically ready. formal service waiter/Scribing Machine Operator will continue to follow patient???s progress and remain available if situation changes for coordination of care, psychosocial support and/or discharge planning. Bia Castillo RN Pager [phone] Plan of Care - Eliza Camacho RN - 03/26/2019 12:47 AM EDT Problem: Patient Care Overview Goal: Plan of Care Review Outcome: Ongoing (Interventions Implemented as Appropriate) 03/25/1952803/25/191999 Plan of Care Review Progress progress toward functional goals as expected -- Coping/Psychosocial Plan Of Care Reviewed With -- patient;mother OUTCOME EVALUATION NOTE: OUTCOME SUMMARY: Pt has remained AO4 with photophobia. Constant EGAN 2-6/10 worse with activity. Right groin site WNL. Rash to right neck improved, pt and mother feel that it is much better. No S/S of allergic reaction for this shift. 0020 Pt transferred to NSCU room 519 via monitored hospital bed with belongings. Report given. PLAN MOVING FORWARD: Neuro checks Q 2 hours Pain control Maintain SBP below 160 TCDs MWF INDIVIDUALIZED FALL PREVENTION INTERVENTIONS: Patient-specific fall risk factors per assessment: [current deficits]: Increased pain with activity Assistance [level of assistance required for transfers and ambulation]: OOB as tolerated with stand by assist Supervision [direct monitoring required during toileting and ADLs]: Eyes on Surveillance [continuous indirect monitoring]: Uses call barney appropriately, hourly rounds, bed locked in low position Patient-specific fall prevention interventions for sensory deficits provided, if applicable: [X] N/A CPG GOAL OUTCOME EVALUATION: Goal: Individualization & Mutuality Outcome: Outcome (s) achieved Date Met: 03/26/19 03/25/19528 Individualization Patient Specific Preferences keep lights low or off, not a lot of noise Goal: Fall Prevention-Safe Patient Handling Outcome: Ongoing (Interventions Implemented as Appropriate) 03/25/19 8939 03/25/19199903/25/19 2200 Lebron Fall Risk History of Falling -- 0 -- Secondary Diagnosis -- 15 -- Ambulatory Aids -- 0 -- Intravenous Therapy/Heparin/Saline Lock -- 20 -- Gait/Transferring -- 0 -- Mental Status -- 0 -- Score -- 35 -- OTHER Lebron Fall Risk -- Med -- Restraint Interventions Safety Promotion/Fall Prevention -- -- -- Positioning Body Position independent -- -- Activity Activity Type -- -- -- Activity Assistance Provided -- -- assistance, stand-by Assistive Device Utilized -- -- none 03/26/19 0000 Lebron Fall Risk History of Falling -- Secondary Diagnosis -- Ambulatory Aids -- Intravenous Therapy/Heparin/Saline Lock -- Gait/Transferring -- Mental Status -- Score -- OTHER Lebron Fall Risk -- Restraint Interventions Safety Promotion/Fall Prevention safety round/check completed Positioning Body Position -- Activity Activity Type activity adjusted per tolerance Activity Assistance Provided -- Assistive Device Utilized -- Goal: Infection Control Outcome: Ongoing (Interventions Implemented as Appropriate) 03/25/19199903/26/19 0000 Safety Interventions Isolation Precautions -- standard precautions maintained Infection Prevention -- rest/sleep promoted Coping Strategies Supportive Measures verbalization of feelings encouraged -- Plan of Care - Dane Wolfe RN - 03/25/2019 5:11 PM EDT Problem: Patient Care Overview Goal: Plan of Care Review Outcome: Ongoing (Interventions Implemented as Appropriate) 03/25/19 0529 03/25/19 1600 Plan of Care Review Progress progress toward functional goals as expected -- Coping/Psychosocial Plan Of Care Reviewed With -- patient;mother;significant other OUTCOME EVALUATION NOTE: OUTCOME SUMMARY: Neuro: neurologically intact Pulm: clear to auscultation, FEV1 performed pre administration of aspirin CV: continued IVF, strong pulses noted throughout GI: Normoactive, soft, non-tender : voiding appropriately with urinal Skin: rash noted on neck, team notified, benadryl administered, bruising noted, R groin access site c/d/i ptn arrived from IR for close monitoring while administering aspirin. ptn tolerated aspirin administration well. PLAN MOVING FORWARD: Access site checks now complete Continue to monitor respiratory status and vitals for changes related to an allergic reaction Brief Op Note - Yong Quinn MD - 03/25/2019 10:21 AM EDT INTERVENTIONAL RADIOLOGY BRIEF PROCEDURE NOTE Patient Name: Jaime Guzman : 1975 Case Date: 03/25/2019 Operators: Attending: Hung All Staff: Staff Maine Vega Stephen J, MD Jaleel, Naser, MD Reust, Savanah Maria RN Post-operative diagnosis/Indication: Acom aneurism Name of Procedure Performed: Diagnostic angiogram Description of the procedure: Consent was obtained from the patient prior to procedure. He was prepped and draped in standard fashion. Ultrasound guidance was used to locate right femoral artery and access was obtained. A microcatheter and guidewire were advanced up and cranial vessels were selected. Contrast was administered known acomm aneurism was identified. No evidence of vasospasm. Vertebrobasilar aneurism was also noted. The microcatheter and Guidwire were removed and the arteriotomy was closed with mynx closure device. Pressure was held for 6 minutes a sterile dressing was applied. Findings of the procedure: Acomm aneurism, vertebrobasilar irregular aneurism, no vasospasm, no extravasation of contrast EBL: <10 mL Specimens: None Complications: No immediate Plan/Disposition: Return to NSCU FULL PROCEDURE NOTE TO FOLLOW IN IMAGE REPORT Plan of Care - Briseida Fuchs RN - 03/25/2019 5:52 AM EDT Problem: Patient Care Overview Goal: Plan of Care Review Outcome: Ongoing (Interventions Implemented as Appropriate) 03/24/19199903/25/19 0566 Plan of Care Review Progress -- progress toward functional goals as expected Coping/Psychosocial Plan Of Care Reviewed With patient;mother -- OUTCOME EVALUATION NOTE: OUTCOME SUMMARY: Pt aox4, able to make needs known and met, able to move around independently, lightheaded when arising from bed. Neuro's intact, strengths 5s, sensations intact. Headache at night is 1-3, in the morning it increases. PRN tylenol given to help decrease headaches. Sun glasses at bedside when overhead lights are on. NPO since midnight for angiogram in the morning. IVF running per MD order since NPO order. PLAN MOVING FORWARD: -neuro and vitals q2hrs -monitor during ambulation -NPO after midnight for angiogram INDIVIDUALIZED FALL PREVENTION INTERVENTIONS: Patient-specific fall risk factors per assessment: [current deficits]: Headache, slight dizziness Assistance [level of assistance required for transfers and ambulation]: Independent, stand by Supervision [direct monitoring required during toileting and ADLs]: Eyes on Surveillance [continuous indirect monitoring]: Heart monitor, apnea, masimo, call barney within reach,bed locked in low position with alarms active, hourly rounding performed Patient-specific fall prevention interventions for sensory deficits provided, if applicable: [X] Yes CPG GOAL OUTCOME EVALUATION: Continue care plan as documented. Goal: Individualization & Mutuality Outcome: Ongoing (Interventions Implemented as Appropriate) 03/25/19 0529 Individualization Patient Specific Preferences keep lights low or off, not a lot of noise Patient Specific Interventions wear sunglasses Goal: Fall Prevention-Safe Patient Handling Outcome: Ongoing (Interventions Implemented as Appropriate) 03/24/19199903/24/19219903/25/19407 Lebron Fall Risk History of Falling 0 -- -- Secondary Diagnosis 15 -- -- Ambulatory Aids 0 -- -- Intravenous Therapy/Heparin/Saline Lock 20 -- -- Gait/Transferring 0 -- -- Mental Status 0 -- -- Score 35 -- -- OTHER Lebron Fall Risk Med -- -- Restraint Interventions Safety Promotion/Fall Prevention -- -- safety round/check completed;nonskid shoes/slippers when out of bed Positioning Body Position -- -- independent Activity Activity Type -- ambulated in room -- Activity Assistance Provided -- independent -- Assistive Device Utilized -- none -- Goal: Infection Control Outcome: Ongoing (Interventions Implemented as Appropriate) 03/24/19199903/25/19407 Safety Interventions Isolation Precautions -- standard precautions maintained Infection Prevention -- rest/sleep promoted Coping Strategies Supportive Measures verbalization of feelings encouraged;self-responsibility promoted;self-reflection promoted;self-care encouraged;active listening utilized;positive reinforcement provided -- Goal: Discharge Needs Assessment Outcome: Ongoing (Interventions Implemented as Appropriate) 03/25/19 05 Discharge Needs Assessment Concerns To Be Addressed no discharge needs identified Discharge Disposition still a patient Goal: Interdisciplinary Rounds/Family Conf Outcome: Ongoing (Interventions Implemented as Appropriate) 03/25/19 05 Interdisciplinary Rounds/Family Conf Participants nursing;patient documented in this encounter Plan of Treatment Not on filedocumented as of this encounter Procedures Procedure Name Priority Date/Time Associated Diagnosis Comme nts P2Y12 ANTIPLATELET Routine 03/26/2019 8:39 Result s for this ([facility]) AM EDT procedure are i n the results section. TRANSCRANIAL DUPLEX Routine 03/26/2019 6:05 Acute nonintractab le Results for this COMPLETE AM EDT headache, unspecified proced ure are in headache type the results Aneurysm of vertebral sectio n. artery HEMOGRAM Routine 03/26/2019 12:15 Results for this AM EDT procedure are i n the results section. DIFFERENTIAL, Routine 03/26/2019 12:15 Results fo r this AUTOMATED AM EDT procedure are i n the results section. CBC (WITH DIFF) Routine 03/26/2019 12:15 AM EDT PHOSPHORUS Routine 03/26/2019 12:15 Results for this AM EDT procedure are i n the results section. MAGNESIUM Routine 03/26/2019 12:15 Results for this AM EDT procedure are i n the results section. BASIC METABOLIC Routine 03/26/2019 12:15 Results for this PANEL (NON-FASTING) AM EDT procedur e are in the results section. IR ARTERIOGRAM Routine 03/25/2019 10:26 Cerebral aneurysm Resu lts for this CEREBRAL AM EDT procedure are i n the results section. HEMOGRAM Routine 03/25/2019 1:56 Results for this AM EDT procedure are i n the results section. DIFFERENTIAL, Routine 03/25/2019 1:56 Results for this AUTOMATED AM EDT procedure are i n the results section. CBC (WITH DIFF) Routine 03/25/2019 1:56 AM EDT BASIC METABOLIC Routine 03/25/2019 1:56 Results f or this PANEL (NON-FASTING) AM EDT procedur e are in the results section. HEMOGRAM Routine 03/24/2019 6:00 Results for this PM EDT procedure are i n the results section. DIFFERENTIAL, Routine 03/24/2019 6:00 Results for this AUTOMATED PM EDT procedure are i n the results section. APTT Routine 03/24/2019 6:00 Results for this PM EDT procedure are i n the results section. PROTHROMBIN TIME Routine 03/24/2019 6:00 Results for this PM EDT procedure are i n the results section. CBC (WITH DIFF) Routine 03/24/2019 6:00 PM EDT BASIC METABOLIC Routine 03/24/2019 6:00 Results f or this PANEL (NON-FASTING) PM EDT procedur e are in the results section. TRANSCRANIAL DUPLEX Routine 03/24/2019 2:38 Acute nonintractab le Results for this COMPLETE PM EDT headache, unspecified proced ure are in headache type the results Aneurysm of vertebral sectio n. artery documented in this encounter Results P2Y12 Antiplatelet (Leb/CGP) (03/26/2019 8:39 AM EDT) P athologist Signature P2Y12 [address] [facility] Comment: This test is intended to be used as an i ndication of drug effect in patients on clopidogrel (Plavix) only in conjunction with a baseline pre-treatment determination. Specimen Anatomical Collection Method Collection Time Receive d Time (Source) Location / / Volume Laterality Blood specimen 03/26/2019 8:39 AM 019 9:03 (specimen) EDT AM EDT Resulting Agency Comment Spec In Lab Hardeep Persaud MD HEMATOLOGY ORDERABLES Performing Organization Address City/State/[place] [address] Transcranial Duplex, complete (03/26/2019 6:05 AM EDT) Component Value Ref Test Analysis Performed At Patholo gist Range Method Time Signature VB Text Department: Vascular Surgery Lab [facility] Report Patient: [id number] (JAIME GUZMAN) CPT: 18060 ICD10: I72.6;R51 Referring Physician: HARDEEP PERSAUD ?? Phone: Indications: 43 year old male with aneurysm and persistent h eadache, ? vasospasm ICD10 Diagnosis Code: I72.6, R51 Findings: Basilar Artery Proximal ? Mean Velocity (cm/s): 12 ? Depth (cm): 7.7 Basilar Artery Distal ? Mean Velocity (cm/s): 14 ? Depth (cm): 8.3 ? Pulsatility Index: 1.0 Anterior Cerebral Artery, Right ? Mean Velocity (cm/s): 34 ? Depth (cm): 6.7 Middle Cerebral Artery Proximal, Right ? Mean Velocity (cm/s): 80 ? Depth (cm): 6.1 ? Pulsatility Index: 0.7 ? Lindegaard Ratio: 2.6 Middle Cerebral Artery Mid, Right ? Mean Velocity (cm/s): 87 ? Depth (cm): 5.9 ? Pulsatility Index: 1.0 ? Lindegaard Ratio: 2.8 Middle Cerebral Artery Distal, Right ? Mean Velocity (cm/s): 42 ? Depth (cm): 4.5 ? Pulsatility Index: 0.8 ? Lindegaard Ratio: 1.4 Posterior Cerebral Artery (P1), Right ? Mean Velocity (cm/s): 45 ? Depth (cm): 6.6 Posterior Cerebral Artery (P2), Right ? Mean Velocity (cm/s): 35 ? Depth (cm): 6.8 ? Pulsatility Index: 1.4 Vertebral Distal, Right ? Mean Velocity (cm/s): 26 ? Depth (cm): 7.1 ICA Distal, Right ? Mean Velocity (cm/s): 31 ? Depth (cm): 5.3 ? Pulsatility Index: 1.0 Terminal ICA, Right ? Mean Velocity (cm/s): 20 ? Depth (cm): 6.4 Anterior Cerebral Artery, Left ? Mean Velocity (cm/s): 64 ? Depth (cm): 7.5 ? Pulsatility Index: 0.9 Middle Cerebral Artery Proximal, Left ? Mean Velocity (cm/s): 75 ? Depth (cm): 6.1 ? Pulsatility Index: 0.9 ? Lindegaard Ratio: 2.3 Middle Cerebral Artery Mid, Left ? Mean Velocity (cm/s): 78 ? Depth (cm): 5.3 ? Pulsatility Index: 1.2 ? Lindegaard Ratio: 2.3 Middle Cerebral Artery Distal, Left ? Mean Velocity (cm/s): 44 ? Depth (cm): 4.4 ? Pulsatility Index: 1.1 ? Lindegaard Ratio: 1.3 Posterior Cerebral Artery (P1), Left ? Mean Velocity (cm/s): 41 ? Depth (cm): 7.0 Posterior Cerebral Artery (P2), Left ? Mean Velocity (cm/s): 27 ? Depth (cm): 6.7 ? Pulsatility Index: 1.2 Vertebral Distal, Left ? Mean Velocity (cm/s): 18 ? Depth (cm): 6.9 ICA Distal, Left ? Mean Velocity (cm/s): 33 ? Depth (cm): 4.0 ? Pulsatility Index: 1.0 Interpretation: RIGHT: No evidence of vasosp asm identified in any of the investigated arteries. Improvement in Lindegaard ra tegan which was in the mild range on the previous exam on 03/24/2019, otherwise, no significant change through the remainder of the study. LEFT: No evidence of vasospasm identifie d in any of the investigated arteries. Improvement in Lindegaard ra tegan which was in the mild range on the previous exam on 03/24/2019, otherwise, no significant change through the remainder of the study. The LEFT terminal ICA was not visualized. Electronically Signed by: ADI RDZ on 2019-03-30 04:24:10 PM VB Text End of Report [facility] Report Specimen (Source) Anatomical Collection Method Collection Time Re ceived Time Location / / Volume Laterality 03/26/2019 6:05 AM EDT Hardeep Persaud MD VASCULAR ORDERABLES Performing Organization Address City/State/ZIP Code Phon e Number [facility] Differential, Automated (03/26/2019 12:15 AM EDT) P athologist Signature Neutrophils % 57.4 % [facility] Neutr Abs (ANC) 5.01 1.70 - [facility] 6.10 [facility] x10(3)/[facility] LABORATORY Lymphocytes % 32.6 % [facility] Lymphocytes Abs 2.8 0.9 - 3.2 [facility] x10(3)/[facility] LABORATORY Monocytes % 7.0 % [facility] Monocyte Abs 0.6 0.3 - 0.9 [facility] x10(3)/[facility] LABORATORY Eosinophils % 2.1 % [facility] Eosinophils Abs 0.2 0.0 - 0.4 [facility] x10(3)/[facility] LABORATORY Basophils % 0.7 % [facility] Basophils Abs 0.1 0.0 - 0.1 [facility] x10(3)/[facility] LABORATORY Immature Gran % 0.20 % [facility] Comment: Immature granulocytes(IG's)percentage an d absolute count will include metamyelocytes, myelocytes, and promyelo cytes. Blood smears from CBCs yielding IG's will be scanned manually for concor dance. If this scan disagrees with the automated IG or if promyelocytes are not ed, a manual differential will be performed. Hedy Gran Abs 0.02 0.00 - 0.04 x10(3)/[facility] Specimen Anatomical Collection Method Collection Time Receive d Time (Source) Location / / Volume Laterality Blood specimen 03/26/2019 12:15 9 (specimen) AM EDT 12:21 AM EDT Resulting Agency Comment Spec In Lab Bang Price MD HEMATOLOGY ORDERABLES Performing Organization Address City/State/[place] [address] (ABNORMAL) Hemogram (03/26/2019 12:15 AM EDT) Analysis Performed At Patho logist Time Signature WBC 8.7 4.0 - 9.5 [facility] x10(3)/[facility] LABORATORY RBC 4.40 (L) 4.58 - [facility] 5.54 [facility] x10(6)/[facility] LABORATORY Hemoglobin 14.1 13.7 - [facility] gm/dL [facility] Hematocrit 40.8 40.5 - [facility] 48.5 % [facility] MCV 92.7 82.9 - [facility]1 [facility] LABORATORY MCH 32.0 27.5 - [facility] 32.1 pg [facility] MCHC 34.6 32.0 - [facility] 35.7 gm/dL [facility] Platelets 233 145 - 357 [facility] x10(3)/[facility] LABORATORY RDWSD 39.1 36.0 - [facility] 45.0 [facility] LABORATORY RDWCV 11.5 11.4 - [facility] 13.8 % [facility] MPV 9.1 7.6 - 12.9 [facility] LABORATORY nRBC % Auto 0.0 % [facility] nRBC Abs Auto 0.000 0.000 - [facility] x10(3)/[facility] LABORATORY Specimen Anatomical Collection Method Collection Time Receive d Time (Source) Location / / Volume Laterality Blood specimen 03/26/2019 12:15 9 (specimen) AM EDT 12:21 AM EDT Resulting Agency Comment Spec In Lab Bang Price MD HEMATOLOGY ORDERABLES Performing Organization Address City/State/[place] [address] (ABNORMAL) Basic Metabolic Panel (non-fasting) (03/26/2019 12:15 AM EDT) P athologist Signature Glucose Lvl 154 65 - 199 [facility] mg/dL [facility] Comment: Diabetes: >=200 mg/dL plus symp toms BUN 12 10 - 20 mg/dL [facility] Creatinine 0.64 (L) 0.80 - 1.50 mg/dL [facility] Sodium 141 135 - 145 mmol/L [facility] Potassium 3.6 3.5 - 5.0 mmol/L [facility] Comment: Please note: ??Patients with WBC >100,00 0 may have falsely elevated Potassium levels. ??For accurate Potassium quantif ication in these patients send serum separator tube (gold top) for subsequent determinations. ??Contact the Clinical Chemistry Laboratory if there are any qu estions. Chloride 106 98 - 107 mmol/L [facility] CO2 25 22 - 31 mmol/L [facility] Anion Gap 10 5 - 15 mmol/L [facility] Calcium 8.9 8.5 - 10.5 mg/dL [facility] Estimated GFR 121 >=60 mL/min/1.73 m?? [facility] Comment: The eGFR was calculated using the CKD-EP I equation. As with all creatinine based estimates of kidney function, eGFR values calculated with the CKD-EPI equation are not accurate in patients wi th acute kidney failure, extremes of body mass or the acutely ill. http://[employer]/[facility]AL[facility]kf eGFR 140 >=60 mL/min/1.73 m?? [facility] Comment: The eGFR was calculated using the CKD-EP I equation. As with all creatinine based estimates of kidney function, eGFR values calculated with the CKD-EPI equation are not accurate in patients wi th acute kidney failure, extremes of body mass or the acutely ill. http://[employer]/[facility] BUFFALOnkf Specimen Anatomical Collection Method Collection Time Receive d Time (Source) Location / / Volume Laterality Blood specimen 03/26/2019 12:15 9 (specimen) AM EDT 12:21 AM EDT Resulting Agency Comment Spec In Lab Hardeep Persaud MD CHEMISTRY ORDERABLES Performing Organization Address City/State/[place] [address] Phosphorus (03/26/2019 12:15 AM EDT) P athologist Signature Phosphorus 2.6 2.5 - 4.5 [facility] mg/dL [facility] Specimen Anatomical Collection Method Collection Time Receive d Time (Source) Location / / Volume Laterality Blood specimen 03/26/2019 12:15 9 (specimen) AM EDT 12:21 AM EDT Resulting Agency Comment Spec In Lab Hardeep Persaud MD CHEMISTRY ORDERABLES Performing Organization Address City/State/ZIP Code Phon e Number [address] Magnesium (03/26/2019 12:15 AM EDT) P athologist Signature Magnesium 0.76 0.69 - 1.07 [facility] mmol/L [facility] Specimen Anatomical Collection Method Collection Time Receive d Time (Source) Location / / Volume Laterality Blood specimen 03/26/2019 12:15 9 (specimen) AM EDT 12:21 AM EDT Resulting Agency Comment Spec In Lab Hardeep Persaud MD CHEMISTRY ORDERABLES Performing Organization Address City/[facility]/[place] [address] IR Arteriogram Cerebral (03/25/2019 10:26 AM EDT) Anatomical Region Laterality Modality X-Ray Angiography Specimen (Source) Anatomical Location Collection Method / Collectio n Time Received Time / Laterality Volume Impressions 04/20/2019 11:41 AM EDT : 1) Wide-neck ACOM aneurysm supplied pref erentially by the left JUAN CARLOS 2) Fusiform-type right vertebral artery aneurysm ? Moderate Sedation Attestation: Patient received split doses of intraven ous fentanyl and versed from the IR nurse while pulse, pressure, and oxyg en saturation were continuously monitored. ?? Attending attestations: I was present during the intra-service t dee dee as documented by the IR Nurse I was the attending physician supervisin g the assistants in the above care and I was present with the assistants fo r the entire procedure. Narrative 04/20/2019 11:41 AM EDT [facility] CEREBRAL ANGIOGRAPHY NOTE ? PATIENT NAME:?Jaime A Guzman :? 1975 MRN: ?[id number] ?? CASE DATE:? 03/25/2019 ? ATTENDING: ?Hardeep Persaud MD? ASSISTANTS: ? Jean Yanez MD; Yong Quinn MD PREOPERATIVE DIAGNOSIS: Intracranial aneurysms ? POSTOPERATIVE DIAGNOSIS: Same ?? PROCEDURE: Diagnostic cerebral angiography Femoral artery ultrasound for arterial a ccess ?? TECHNIQUE: Selective catheterization and Angiogram: Right internal carotid artery (AP, Lat, and Oblique views) Selective catheterization and Angiogram: Left internal carotid artery (AP, Lat, and Oblique views) Selective catheterization and Angiogram: Left vertebral artery (Ioana and Lat) Selective catheterization and Angiogram: Right vertebral artery (Ioana and Lat) 3D rotational angiogram from left ICA ?? ANESTHETIC Moderate sedation ?? INDICATIONS: This 43 y.o.??male??presented with heada ches and workup showed two unruptured intracranial aneurysms. ??A d iagnostic cerebral angiogram was offered to evaluate the aneurysms and pl an treatment. ??Risks, benefits, and alternatives were discussed in detai l. ??The patient understood all risks and agreed to proceed with the pro cedure. DESCRIPTION OF PROCEDURE: The patient was [facility] ional radiology suite and positioned on the angiography table. ??B ilateral femoral regions were prepped and then sterilely draped. ??A t imeout was performed. ??Using ultrasound guidance, the right femoral a rtery was identified and??accessed with a micropuncture kit. ??A 5Fr sheath was then inserted without complication and connected to a constant heparinized drip. ??A right common femoral angiogram was performed at the e nd of the procedure showing the puncture site to be above the bifurcatio n. ? A 5Fr Avison Young diagnostic catheter was adva nced into the sheath over a 0.035 Glidewire. ??The catheter was brought ov er the aortic arch and the right common carotid artery was selected. ??A roadmap was obtained and then the right internal carotid artery selected. An angiogram of the right ICA was performed to get intracranial AP, latera l, and magnified oblique views. ?? The catheter was next pulled into the ao rtic arch and the left common carotid artery was selected. ??An angiog mikie was performed with biplane cranial views after selection of the lef t ICA. ??A 3-D rotational angiogram was next performed from this position. ? ?3-D post processing volume and surface rendering was performed with max imum intensity projections on a separate??workstation. ??The working vie ws giving the best projection of the ACOM aneurysm were next obtained with hi gh magnification fluorosocpy. The catheter was next withdrawn to the a ortic arch and then navigated towards the left subclavian artery. ??Th e left vertebral artery was selected and biplane angiography was per formed. ??The catheter was then removed and a 5Fr Vert diagnostic cathet er was advanced into the aorta. ?? The right vertebral artery was selected using roadmap guidance. ??An angiogram was performed with intracrania l biplane views after injection of contrast in the right VA. ?? The diagnostic catheter was then complet al withdrawn from the body. The puncture site was then closed with the M ynx closure device. There was good hemostasis after deploying the closure d evice. ? There were no complications during the p rocedure. ??The patient was hemodynamically stable and taken to the recovery room. ? FINDINGS: Right internal carotid artery angiogram: ??AP, lateral and magnified oblique views show the intracranial ICA? ?segment and branches to have a normal course and caliber. The MCA and A CA branches fill briskly. There is no early venous drainage. There is no ab normality in the late arterial phase or stagnancy of any intracranial v essels. ??There is no evidence of any AVMs, aneurysms, or AV fistulae. Left internal carotid artery angiogram: AP, lateral, and magnified oblique views of the intracranial ICA segment an d its branches are of normal caliber and course. ??There is no early venous drainage. ??There is a wide-neck ACOM aneurysm with a maximum d imension of 4.8 mm. ??The aneurysm is projecting anteriorly and inferiorly. ?? 3D rotational angiogram from the left IC A shows the aneurysm noted above. Left vertebral artery angiogram: AP and lateral views show normal arterial, capillary, and venous opacific ation. ??The left PICA and branches of the basilar artery fill normally. ??T here is no evidence of any aneurysms, AVMs, or early venous drainag e. Right vertebral artery angiogram: Ioana and lateral views show normal arterial, capillary, and venous opacific ation. ??There is a fusiform aneurysm just distal to the PICA in the intradural right vertebral artery. The branches of the basilar artery fill normally. ?? Hardeep Persaud MD IMG IR ORDERABLES (ABNORMAL) Differential, Automated (03/25/2019 1:56 AM EDT) [facility] gist Method Time Signature Neutrophils % 44.0 % [facility] Neutr Abs (ANC) 3.67 1.70 - [facility] 6.10 [facility] x10(3)/[facility] LABORATORY Lymphocytes % 43.8 % [facility] Lymphocytes Abs 3.6 (H) 0.9 - 3.2 [facility] x10(3)/[facility] LABORATORY Monocytes % 8.9 % [facility] Monocyte Abs 0.7 0.3 - 0.9 [facility] x10(3)/[facility] LABORATORY Eosinophils % 2.3 % [facility] Eosinophils Abs 0.2 0.0 - 0.4 [facility] x10(3)/[facility] LABORATORY Basophils % 0.6 % [facility] Basophils Abs 0.0 0.0 - 0.1 [facility] x10(3)/[facility] LABORATORY Immature Gran % 0.40 % [facility] Comment: Immature granulocytes(IG's)percentage an d absolute count will include metamyelocytes, myelocytes, and promyelo cytes. Blood smears from CBCs yielding IG's will be scanned manually for concor dance. If this scan disagrees with the automated IG or if promyelocytes are not ed, a manual differential will be performed. Hedy Gran Abs 0.03 0.00 - 0.04 x10(3)/[facility] Specimen Anatomical Collection Method Collection Time Receive d Time (Source) Location / / Volume Laterality Blood specimen 03/25/2019 1:56 AM 019 2:14 (specimen) EDT AM EDT Resulting Agency Comment Spec In Lab Paul MARTINEZ HEMATOLOGY ORDERABLES Performing Organization Address City/State/[place] [address] (ABNORMAL) Hemogram (03/25/2019 1:56 AM EDT) Analysis Performed At Patho logist Time Signature WBC 8.3 4.0 - 9.5 [facility] x10(3)/[facility] LABORATORY RBC 4.49 (L) 4.58 - [facility] 5.54 [facility] x10(6)/[facility] LABORATORY Hemoglobin 14.1 13.7 - [facility] 16.5 gm/dL [facility] Hematocrit 40.7 40.5 - [facility] 48.5 % [facility] MCV 90.6 82.9 - [facility]1 [facility] LABORATORY MCH 31.4 27.5 - [facility] 32.1 pg [facility] MCHC 34.6 32.0 - [facility] 35.7 gm/dL [facility] Platelets 223 145 - 357 [facility] x10(3)/[facility] LABORATORY RDWSD 39.1 36.0 - [facility] 45.0 [facility] LABORATORY RDWCV 11.8 11.4 - [facility] 13.8 % [facility] MPV 9.2 7.6 - 12.9 [facility] LABORATORY nRBC % Auto 0.0 % [facility] nRBC Abs Auto 0.000 0.000 - [facility] 0.000 [facility] x10(3)/[facility] LABORATORY Specimen Anatomical Collection Method Collection Time Receive d Time (Source) Location / / Volume Laterality Blood specimen 03/25/2019 1:56 AM 019 2:14 (specimen) EDT AM EDT Resulting Agency Comment Spec In Lab Paul MARTINEZ HEMATOLOGY ORDERABLES Performing Organization Address City/State/Z[place] [address] (ABNORMAL) Basic Metabolic Panel (non-fasting) (03/25/2019 1:56 AM EDT) athologist Signature Glucose Lvl 107 65 - 199 [facility] mg/dL [facility] Comment: Diabetes: >=200 mg/dL plus symp toms BUN 15 10 - 20 mg/dL [facility] Creatinine 0.69 (L) 0.80 - 1.50 mg/dL [facility] Sodium 140 135 - 145 mmol/L [facility] Potassium 4.2 3.5 - 5.0 mmol/L [facility] Comment: Please note: ??Patients with WBC >100,00 0 may have falsely elevated Potassium levels. ??For accurate Potassium quantif ication in these patients send serum separator tube (gold top) for subsequent determinations. ??Contact the Clinical Chemistry Laboratory if there are any qu estions. Chloride 106 98 - 107 mmol/L [facility] CO2 24 22 - 31 mmol/L [facility] Anion Gap 10 5 - 15 mmol/L [facility] Calcium 8.6 8.5 - 10.5 mg/dL [facility] Estimated GFR 117 >=60 mL/min/1.73 m?? [facility] Comment: The eGFR was calculated using the CKD-EP I equation. As with all creatinine based estimates of kidney function, eGFR values calculated with the CKD-EPI equation are not accurate in patients wi th acute kidney failure, extremes of body mass or the acutely ill. http://[employer]/DHMCnkf eGFR 136 >=60 mL/min/1.73 m?? [facility] Comment: The eGFR was calculated using the CKD-EP I equation. As with all creatinine based estimates of kidney function, eGFR values calculated with the CKD-EPI equation are not accurate in patients wi th acute kidney failure, extremes of body mass or the acutely ill. [email or web address] Specimen Anatomical Collection Method Collection Time Receive d Time (Source) Location / / Volume Laterality Blood specimen 03/25/2019 1:56 AM 019 2:14 (specimen) EDT AM EDT Resulting Agency Comment Spec In Lab Hardeep Persaud MD CHEMISTRY ORDERABLES Performing Organization Address [facility] Phon e Number [address] APTT (03/24/2019 6:00 PM EDT) P athologist Signature PTT 29 25 - 37 sec [facility] Comment: The PTT is NOT appropriate for heparin m onitoring. Use the Anti-Xa level for heparin monitoring (HEP UFH) or LMWH mon itoring (HEP LMW). A PTT less than 37 seconds generally indicates adequate hem ostasis. Specimen Anatomical Collection Method Collection Time Receive d Time (Source) Location / / Volume Laterality Blood specimen 03/24/2019 6:00 PM 019 6:09 (specimen) EDT PM EDT Resulting Agency Comment Spec In Lab Hardeep Persaud MD HEMATOLOGY ORDERABLES Performing Organization Address [facility] [place] [address] Prothrombin Time (03/24/2019 6:00 PM EDT) P athologist Signature PT 11.9 9.4 - 12.5 [facility] LABORATORY INR 1.0 [facility] Comment: An INR [...] Location / / Volume Laterality Blood specimen 03/24/2019 6:00 PM 019 6:09 (specimen) EDT PM EDT Resulting Agency Comment Spec In Lab Hardeep Persaud MD HEMATOLOGY ORDERABLES Performing Organization Address City/State/Z[place] [address] Differential, Automated (03/24/2019 6:00 PM EDT) P athologist Signature Neutrophils % 58.3 % [facility] Neutr Abs (ANC) 4.87 1.70 - [facility] 6.10 [facility] x10(3)/[facility] LABORATORY Lymphocytes % 31.7 % [facility] Lymphocytes Abs 2.6 0.9 - 3.2 [facility] x10(3)/[facility] LABORATORY Monocytes % 7.4 % [facility] Monocyte Abs 0.6 0.3 - 0.9 [facility] x10(3)/[facility] LABORATORY Eosinophils % 1.7 % [facility] Eosinophils Abs 0.1 0.0 - 0.4 [facility] x10(3)/[facility] LABORATORY Basophils % 0.5 % [facility] Basophils Abs 0.0 0.0 - 0.1 [facility] x10(3)/[facility] LABORATORY Immature Gran % 0.40 % [facility] Comment: Immature granulocytes(IG's)percentage an d absolute count will include metamyelocytes, myelocytes, and promyelo cytes. Blood smears from CBCs yielding IG's will be scanned manually for concor dance. If this scan disagrees with the automated IG or if promyelocytes are not ed, a manual differential will be performed. Hedy Gran Abs 0.03 0.00 - 0.04 x10(3)/[facility] LABORATORY Specimen Anatomical Collection Method Collection Time Receive d Time (Source) Location / / Volume Laterality Blood specimen 03/24/2019 6:00 PM 019 6:09 (specimen) EDT PM EDT Resulting Agency Comment Spec In Lab Paul MARTINEZ HEMATOLOGY ORDERABLES Performing Organization Address City/State/Z[place] [address] (ABNORMAL) Hemogram (03/24/2019 6:00 PM EDT) Analysis Performed At Patho logist Time Signature WBC 8.4 4.0 - 9.5 [facility] x10(3)/[facility] LABORATORY RBC 4.49 (L) 4.58 - [facility] 5.54 [facility] x10(6)/[facility] LABORATORY Hemoglobin 14.5 13.7 - [facility] 16.[facility] gm/dL [facility] Hematocrit 40.8 40.5 - [facility] 48.5 % [facility] MCV 90.9 82.9 - [facility] 93.1 [facility] LABORATORY MCH 32.3 (H) 27.5 - [facility] 32.1 pg [facility] MCHC 35.5 32.0 - [facility] [place] 35.7 gm/dL [facility] Platelets 236 145 - 357 [facility] x10(3)/[facility] LABORATORY RDWSD 38.5 36.0 - [facility] [place] 45.0 [facility] LABORATORY RDWCV 11.4 11.4 - [facility] 13.8 % [facility] LABORATORY MPV 9.6 7.6 - 12.9 [facility] LABORATORY nRBC % Auto 0.0 % [facility] nRBC Abs Auto 0.000 0.000 - [place] 0.000 [facility] x10(3)/[facility] LABORATORY Specimen Anatomical Collection Method Collection Time Receive d Time (Source) Location / / Volume Laterality Blood specimen 03/24/2019 6:00 PM 019 6:09 (specimen) EDT PM EDT Resulting Agency Comment Spec In Lab Paul MARTINEZ HEMATOLOGY ORDERABLES Performing Organization Address City/State/Z[place] [address] (ABNORMAL) Basic Metabolic Panel (non-fasting) (03/24/2019 6:00 PM EDT) P athologist Signature Glucose Lvl 156 65 - 199 [facility] mg/dL [facility] Comment: Diabetes: >=200 mg/dL plus symp toms BUN 17 10 - 20 mg/dL [facility] Creatinine 0.74 (L) 0.80 - 1.50 mg/dL [facility] Sodium 143 135 - 145 mmol/L [facility] Potassium 3.8 3.5 - 5.0 mmol/L [facility] Comment: Please note: ??Patients with WBC >100,00 0 may have falsely elevated Potassium levels. ??For accurate Potassium quantif ication in these patients send serum separator tube (gold top) for subsequent determinations. ??Contact the Clinical Chemistry Laboratory if there are any qu estions. Chloride 108 (H) 98 - 107 mmol/L [facility] CO2 25 22 - 31 mmol/L [facility] Anion Gap 10 5 - 15 mmol/L [facility] Calcium 9.0 8.5 - 10.5 mg/dL [facility] Estimated GFR 114 >=60 mL/min/1.73 m?? [facility] Comment: The eGFR was calculated using the CKD-EP I equation. As with all creatinine based estimates of kidney function, eGFR values calculated with the CKD-EPI equation are not accurate in patients wi th acute kidney failure, extremes of body mass or the acutely ill. http://[email or web address] eGFR 132 >=60 mL/min/1.73 m?? [facility] Comment: The eGFR was calculated using the CKD-EP I equation. As with all creatinine based estimates of kidney function, eGFR values calculated with the CKD-EPI equation are not accurate in patients wi th acute kidney failure, extremes of body mass or the acutely ill. http://[employer]/DHMCnkf Specimen Anatomical Collection Method Collection Time Receive d Time (Source) Location / / Volume Laterality Blood specimen 03/24/2019 6:00 PM 019 6:09 (specimen) EDT PM EDT Resulting Agency Comment Spec In Lab Hardeep Persaud MD CHEMISTRY ORDERABLES Performing Organization Address City/State/[place] [address] Transcranial Duplex, complete (03/24/2019 2:38 PM EDT) Component Value Ref Test Analysis Performed At [facility] Range Method Time Signature VB Text Department: Vascular Surgery Lab VASCU[facility] Report Patient: [id number] (JAIME GUZMAN) CPT: 07649 ICD10: I72.6;R51 Referring Physician: HARDEEP PERSAUD ?? Phone: Indications: Patient with known aneurysm with persistent headache, ? vasospasm ICD10 Diagnosis Code: I72.6, R51 Findings: Basilar Artery Proximal ? Mean Velocity (cm/s): 26 ? Depth (cm): 7.6 Basilar Artery Distal ? Mean Velocity (cm/s): 27 ? Depth (cm): 8.2 Anterior Cerebral Artery, Right ? Mean Velocity (cm/s): 65 ? Depth (cm): 6.8 Middle Cerebral Artery Proximal, Right ? Mean Velocity (cm/s): 87 ? Depth (cm): 6.0 ? Pulsatility Index: 0.9 ? Lindegaard Ratio: 3.1 Middle Cerebral Artery Mid, Right ? Mean Velocity (cm/s): 84 ? Depth (cm): 5.6 ? Pulsatility Index: 1.0 ? Lindegaard Ratio: 3.0 Middle Cerebral Artery Distal, Right ? Mean Velocity (cm/s): 52 ? Depth (cm): 4.1 ? Pulsatility Index: 0.8 ? Lindegaard Ratio: 1.9 Posterior Cerebral Artery (P1), Right ? Mean Velocity (cm/s): 26 ? Depth (cm): 6.4 Posterior Cerebral Artery (P2), Right ? Mean Velocity (cm/s): 38 ? Depth (cm): 6.8 ? Pulsatility Index: 1.0 Vertebral Distal, Right ? Mean Velocity (cm/s): 43 ? Depth (cm): 6.2 ICA Distal, Right ? Mean Velocity (cm/s): 28 ? Depth (cm): 4.8 ? Pulsatility Index: 0.9 Terminal ICA, Right ? Mean Velocity (cm/s): 22 ? Depth (cm): 6.7 Anterior Cerebral Artery, Left ? Mean Velocity (cm/s): 72 ? Depth (cm): 7.2 ? Pulsatility Index: 0.9 Middle Cerebral Artery Proximal, Left ? Mean Velocity (cm/s): 63 ? Depth (cm): 6.5 ? Pulsatility Index: 0.8 ? Lindegaard Ratio: 3.0 Middle Cerebral Artery Mid, Left ? Mean Velocity (cm/s): 93 ? Depth (cm): 5.8 ? Pulsatility Index: 0.8 ? Lindegaard Ratio: 4.4 Middle Cerebral Artery Distal, Left ? Mean Velocity (cm/s): 64 ? Depth (cm): 4.9 ? Pulsatility Index: 0.8 ? Lindegaard Ratio: 3.0 Posterior Cerebral Artery (P1), Left ? Mean Velocity (cm/s): 41 ? Depth (cm): 7.0 Posterior Cerebral Artery (P2), Left ? Mean Velocity (cm/s): 44 ? Depth (cm): 6.8 ? Pulsatility Index: 0.9 Vertebral Distal, Left ? Mean Velocity (cm/s): 37 ? Depth (cm): 6.2 ICA Distal, Left ? Mean Velocity (cm/s): 21 ? Depth (cm): 4.6 ? Pulsatility Index: 1.1 Terminal ICA, Left ? Mean Velocity (cm/s): 41 ? Depth (cm): 7.0 Interpretation: RIGHT: There is mild vasospasm identified within the MCA bas ed on the lindegaard ratio; however the mean veloc ities and pulsatility index are within normal limits. LEFT: There is mild vasospas m identified within the MCA based on the lindegaard ratio; however the mean velocities and pulsatility index are within normal limits. Comparison: ??No previous study in our vascular lab da tabase for comparison. Electronically Signed by: TIMOTEO ELENA on 2019-03-25 10:14: 05 AM VB Text End of Report VASCUBASE Report Specimen (Source) Anatomical Collection Method Collection Time Re ceived Time Location / / Volume Laterality 03/24/2019 2:38 PM EDT Hardeep Persaud MD VASCULAR ORDERABLES Performing Organization Address City/State/ZIP Code Phon e Number VASCUBASE documented in this encounter Visit Diagnoses Diagnosis Acute nonintractable headache, unspecifi ed headache type 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 Cerebral aneurysm Cerebral aneurysm, nonruptured Intracranial aneurysm Cerebral aneurysm, nonruptured documented in this encounter Admitting Diagnoses Diagnosis Intracranial aneurysm Cerebral aneurysm, nonruptured documented in this encounter Administered Medications Inactive Administered Medications - up to 3 most recent administrations Medication Order MAR Action Action Date Dose Rate Site acetaminophen (TYLENOL) 325 mg tablet 1 dose, Starting on Fri03/25/19 at 1154, Until 03/02 at 1155, PARMINDER VALERO (FLEX): cabinet override acetaminophen (TYLENOL) suppository 975 mg 975 mg, Rectal, EVERY 6 HOURS SCHEDULED, First dose (after last modification) on Fri03/25/19 at 1800, Until Discontinued, Give per rectum (ID) if unable to take PO. Do not exceed 4000 mg acetaminophen per day., Routine acetaminophen (TYLENOL) tablet 1,000 mg Given 03/26/2019 12:11 PM EDT 1,000 mg 1,000 mg, Oral, EVERY 6 HOURS SCHEDULED, First dose (after last modification) on Fri03/25/19 at 1800, Until Discontinued, Do not exceed 4000 mg acetaminophen per day., Routine Given 03/26/2019 12:10 AM EDT 1,000 mg Given 03/25/2019 6:34 PM EDT 1,000 mg acetaminophen (TYLENOL) tablet 650 mg Given 03/25/2019 11:55 AM EDT 650 mg 650 mg, Oral, EVERY 4 HOURS PRN, Starting on Fri03/24/19 at 1433, Until Fri03/25/19 at 1327, Pain, Mild pain (1-3), Do not exceed 4000 mg acetaminophen per day., Routine Given 03/24/2019 8:55 PM EDT 650 mg albuterol (PROVENTIL) nebulizer solution 2.5 mg 2.5 mg, Nebulization, EVERY 2 HOURS PRN, Starting on Fri03/25/19 at 1419, Until Fri03/26/19 at 1725, Wheezing, Shortness of Breath, Routin e amLODIPine (NORVASC) tablet 10 mg Given 03/26/2019 9:00 AM EDT 10 mg 10 mg, Oral, DAILY, First dose on Fri03/25/19 at 0900, Until Discontinued, Routine Given 03/25/2019 12:35 PM EDT 10 mg aspirin chewable tablet 40.5 mg Given 03/25/2019 6:35 PM EDT 40.5 mg 40.5 mg, Oral, EVERY 90 MIN, 2 doses, First dose on Fri03/25/19 at 1600, Last dose on Fri03/25/19 at 1730, Administer one hour after singulair., STAT Given 03/25/2019 4:40 PM EDT 40.5 mg aspirin chewable tablet 81 mg Given 03/26/2019 12:29 PM EDT 81 mg 81 mg, Oral, DAILY, First dose on Fri03/26/19 at 1245, Until Discontinued, STAT diphenhydrAMINE (BENADRYL) injection 50 mg Given 03/25/2019 2:25 PM EDT 50 mg 50 mg, Intravenous, EVERY 6 HOURS PRN, Starting on Fri03/25/19 at 1404, Until Fri03/26/19 at 1725, Itching, Other, Drug reaction to ASA, Routine famotidine (PEPCID) injection 20 mg 20 mg, Intravenous, 2 TIMES DAILY, First dose on Fri at 2100, Until Discontinued, Routine famotidine (PEPCID) tablet 20 mg Given 03/26/2019 8:19 AM EDT 20 mg 20 mg, Oral, 2 TIMES DAILY, First dose on Fri03/24/19 at 2100, Until Discontinued, If unable to take PO, may give IV, Routine Given 03/25/2019 9:23 PM EDT 20 mg fentaNYL (PF) 50 mcg/mL injection 1 dose, Starting on Fri03/25/19 at 0755, Until 03/02 at 0819, DOYLE WARE E.: cabinet override fentaNYL (PF) 50mcg/mL injection Given 03/25/2019 10:01 AM EDT 25 mcg 25 mcg, Intravenous, EVERY 5 MIN PRN, Starting on Fri03/25/19 at 0751, Until Fri03/25/19 at 1004, Pain, Hold for respiratory rate less than 8 breaths per minute. (maximum dose 100 mcg) For patients with intracranial lesions, the maximum dose of fentaNYL is 50 mcg., Routine Given 03/25/2019 9:47 AM EDT 25 mcg Given 03/25/2019 9:44 AM EDT 25 mcg heparin (porcine) 1,000 unit/mL Given 03/25/2019 10:00 AM EDT 3, 000 Units injection 1 dose, Starting on Fri03/25/19 at 0959, Until Fri03/25/19 at 1000, Amaya Braswell: cabinet override hydrALAZINE (APRESOLINE) 20 mg/mL inject ion 1 dose, Starting on Fri03/25/19 at 1218, Until Fri03/25/19 at 1221, Savanah Rodriguez: cabinet override hydrALAZINE (APRESOLINE) injection 10 mg Given 03/26/2019 8:19 AM EDT 10 mg 10 mg, Intravenous, EVERY 1 HOUR PRN, Starting on Fri03/24/19 at 1433, Until Fri03/26/19 at 1725, High Blood Pressure, Target systolic blood pressure (SBP) less than 160 mmHg. Administer 10 mg IV . May repeat once in 15 minutes if SBP greater than target BP (caution if HR greater than 90). Use if labetalol ineffective after 1 hour., Routine Given 03/25/2019 12:36 PM EDT 10 mg Given 03/25/2019 12:21 PM EDT 10 mg hydrOXYzine (ATARAX) tablet 25 mg Given 03/25/2019 11:29 AM EDT 25 mg 25 mg, Oral, DAILY PRN, Starting on Fri03/24/19 at 1430, Until Fri03/25/19 at 1327, headaches, Routine Given 03/24/2019 8:55 PM EDT 25 mg hydrOXYzine (ATARAX) tablet 25 mg Given 03/26/2019 1:27 PM EDT 25 mg 25 mg, Oral, EVERY 4 HOURS PRN, Starting on Fri03/25/19 at 1328, Until Fri03/26/19 at 1725, Anxiety, headaches, Routine Given 03/25/2019 9:24 PM EDT 25 mg iodixanol (VISIPAQUE) 320 mg iodine/mL Given 03/25/2019 10:09 AM EDT 250 mLs injection 450 mL 450 mL, Intra-arterial, ONCE PRN, 1 dose, Starting on Fri03/25/19 at 1009, Until Fri03/25/19 at 1009, Per Protocol, Routine lisinopril (PRINIVIL;ZESTRIL) tablet 10 mg Given 03/26/2019 8:19 AM EDT 10 mg 10 mg, Oral, DAILY, First dose on Fri03/24/19 at 1500, Until Discontinued, Routine Given 03/25/2019 12:35 PM EDT 10 mg LORazepam (ATIVAN) injection 1 mg Given 03/25/2019 6:21 AM EDT 1 mg 1 mg, Intravenous, ONCE PRN, 1 dose, Starting on Fri03/25/19 at 0610, Until Fri03/25/19 at 0621, Anxiety, Routine melatonin tablet 6 mg Given 03/25/2019 9:24 PM EDT 6 mg 6 mg, Oral, NIGHTLY, First dose on Fri03/24/19 at 2100, Until Discontinued, Routine Given 03/24/2019 8:55 PM EDT 6 mg midazolam (PF) (VERSED) 1 mg/mL injectio n 1 dose, Starting on Fri03/25/19 at 0755, Until 03/02 at 0817, DOYLE WARE.: krystalinet override midazolam (PF) (VERSED) injection 0.5-2 mg Given 03/25/2019 10:01 AM EDT 0.5 mg 0.5-2 mg, Intravenous, EVERY 5 MIN PRN, Starting on Fri03/25/19 at 0751, Until Fri03/25/19 at 1004, Anxiety, Hold for delirium/agitation. (Maximum dose 4 mg). For procedural sedation only with direct provider supervision and verbal order., Routine Given 03/25/2019 9:48 AM EDT 0.5 mg Given 03/25/2019 9:39 AM EDT 1 mg montelukast (SINGULAIR) tablet 10 mg Given 03/25/2019 2:26 PM EDT 10 mg 10 mg, Oral, ONCE, 1 dose, On Fri03/25/19 at 1430, STAT montelukast (SINGULAIR) tablet 10 mg 10 mg, Oral, DAILY PRN, Starting on Fri03/25/19 at 1405, Until Fri03/26/19 at 1725, Drug reaction to ASA, Routine ondansetron (ZOFRAN) injection 4-8 mg 4-8 mg, Intravenous, EVERY 8 HOURS PRN, Starting on Fri03/24/19 at 1433, Until Fri03/26/19 at 1725, Nausea, If multiple antiemetics are ordered, use ondansetron first, prochlorperazine second, and meta clopramide third. Start with 4mg and if ineffective in 30 minutes, give an additional 4mg ondansetron (ZOFRAN) tablet 4-8 mg 4-8 mg, Oral, EVERY 8 HOURS PRN, Startin g on Fri03/24/19 at 1433, Until Fri03/26/19 at 1725, Nausea, Vomiting, If multipl e antiemetics are ordered, use ondansetron first, prochlorperazine second, and metaclopramide thi rd. PO Preferred. If patient unable to take PO, may give IV if ordered. Sta rt with 4mg and if ineffective in 45 minutes, give an additional 4mg, Rou pietro senna-docusate (PERICOLACE) 8.6-50 mg per Given 2018 9:24 PM EDT 2 tablets tablet 2 tablet 2 tablet, Oral, 2 TIMES DAILY, First dose on Fri03/24/19 at 2100, Until Discontinued, Routine sodium chloride 0.9% infusion New Bag 03/25/2019 9:26 PM EDT 125 mL/hr 125 mL/hr 125 mL/hr, Intravenous, CONTINUOUS, Starting on Fri03/24/19 at 2200, Until Fri03/26/19 at 1225 New Bag 03/25/2019 1:42 PM EDT 125 mL/hr 125 mL/hr Rate/Dose Change 03/25/2019 1:27 PM EDT 125 mL/hr 125 mL/hr documented in this encounter Active and Recently Administered Medications Times are shown in EDT. Scheduled Medication Order 03/24/2019 03/25/2019 03/26/2019 acetaminophen (TYLENOL) suppository 975 mg(Linked Group 1) 1834 (See Alternative - Provider: Dane Wolfe RN) 0010 (See Alternative - Provider: Eliza Camacho, GRACE)0600 (See Alternative - Provider: Gurmeet Dubon, GRACE)1211 (See Alternative - Provider: Rose Smith RN) 975 mg, Rectal, EVERY 6 HOURS SCHEDULED, First dose on Kerry 03/25/19 at 1800, Until Discontinued, Give per rectum (ID) if unable to take PO. Do not exceed 4000 mg acetaminophen per day., Routine acetaminophen (TYLENOL) tablet 1,000 mg(Linked Group 1) 1834 (Given - Provider: Dane Wolfe RN) 0010 (Given - Provider: Eliza Camacho, GRACE )0600 (Not Given - Provider: Gurmeet Dubon RN - Reason: See comment - Comment: sleeping)1211 (Given - Provider: Rose Smith RN) 1,000 mg, Oral, EVERY 6 HOURS SCHEDULED, First dose on Kerry 03/25/19 at 1800, Until Discontinued, Do not exceed 4000 mg acetaminophen per day., Routine amLODIPine (NORVASC) tablet 10 mg 1235 (Given - Provider: Savanah Rodriguez RN) 0900 (Given - Provider: Rose Smith RN) 10 mg, Oral, DAILY, First dose on Kerry at 0900, Until Discontinued, Routine aspirin chewable tablet 40.5 mg (COMPLETED) 1640 (Given - Provider: Dane Wolfe RN - Comment: singulair administered greater than 1hr pre aspirin administration, RT at bedside for FEV1, team aware of administration)1835 (Given - Provider: Dane Wolfe RN) 40.5 mg, Oral, EVERY 90 MIN, 2 doses, Fi rst dose on Kerry 03/25/19 at 1600, Last dose on [place] 03/25/19 at 1730, Administer one hour after singulair., STAT aspirin chewable tablet 81 mg 12 29 (Given - Provider: Rose Smith RN) 81 mg, Oral, DAILY, First dose on Fri03/26/19 at 1245, Until Discontinued, STAT famotidine (PEPCID) injection 20 mg(Linked Group 2) 21 00 (Not Given - Provider: Briseida Fuchs RN - Reason: Patient/family refused) 09 (See Alternative - Provider: Dane Wolfe RN)2122 (See Alternative - Provider: Eliza Camacho RN) 818 (See Alternative - Provider: Rose Smith RN) 20 mg, Intravenous, 2 TIMES DAILY, First dose on Fri03/24/19 at 2100, Until Discontinued, Routine famotidine (PEPCID) tablet 20 mg(Linked Group 2) 2099 (See Alternative - Provider: Briseida Fuchs RN) 09 (Not Given - Provider: Dane arreguin RN - Reason: See comment - Comment: ptn was not on this unit at this time)2122 (Given - Provider: Eliza Camacho RN) 818 (Given - Provider: Kale Polk) 20 mg, Oral, 2 TIMES DAILY, First dose o n Fri03/24/19 at 2100, Until Discontinued, If unable to take PO, may give IV, Routine lisinopril (PRINIVIL;ZESTRIL) tablet 10 mg 1500 (Not G iven - Provider: Jana Lambert RN - Reason: Patient/family refused - Comment: took this morning at home) 1235 (Given - Provider: Savanah Rodriguez RN) 818 (Given - Provider: Rose Smith RN) 10 mg, Oral, DAILY, First dose on Fri at 1500, Until Discontinued, Routine melatonin tablet 6 mg 2054 (Given - Provider: Briseida rene RN) 2123 (Given - Provider: Eliza Camacho, GRACE) 6 mg, Oral, NIGHTLY, First dose on Fri at 2100, Until Discontinued, Routine montelukast (SINGULAIR) tablet 10 mg (COMPLETED) 1425 (Given - Provider: Dane Wolfe RN) 10 mg, Oral, ONCE, 1 dose, [place] 03/25/19 at 1430, STAT senna-docusate (PERICOLACE) 8.6-50 mg per tablet 2 tab let 2099 (Not Given - Provider: Briseida Fuchs RN - Reason: Patient/family refused) 0900 (Not Given - Provider: Dane Wolfe RN - Reason: See comment - Comment: last BB this AM)2123 (Given - Provider: Eliza Camacho, GRACE) 0819 (Not Given - Provider: Rose Smith RN - Reason: Patient/family refused) 2 tablet, Oral, 2 TIMES DAILY, First dos e on Fri03/24/19 at 2100, Until Discontinued, Routine Continuous Medication Order 03/24/2019 03/25/2019 03/26/2019 sodium chloride 0.9% infusion (CANCELED) 2055 (New Bag - Provider: Briseida Fuchs RN)220 (New Bag - Provider: Briseida Fuchs RN) 1327 (Rate/Dose Change - Provider: Dane Wolfe RN)1342 (New Bag - Provider: Dane Wolfe RN)2125 (New Bag - Provider: Eliza Camacho RN) 125 mL/hr, at 125 mL/hr, Intravenous, CO NTINUOUS, Starting Fri03/24/19 at 2200, Until Fri03/26/19 at 1225 PRN Medication Order 03/24/2019 03/25/2019 03/26/2019 acetaminophen (TYLENOL) tablet 650 mg (CANCELED) 2054 (Given - Provider: Briseida Fuchs RN) 1155 (Given - Provider: Gabriela Joyner RN) 650 mg, Oral, EVERY 4 HOURS PRN, Startin g Fri03/24/19 at 1433, Until Fri03/25/19 at 1327, Pain, Mild pain (1-3), Do not exceed 4000 mg acetaminophen per day., Routine albuterol (PROVENTIL) nebulizer solution 2.5 mg 2.5 mg, Nebulization, EVERY 2 HOURS PRN, Starting Fri03/25/19 at 1419, Until Fri03/26/19 at 1725, Wheezing, Shortness of Breath, Routine bisacodyl (DULCOLAX) EC tablet 10 mg 10 mg, Oral, 2 TIMES DAILY PRN, Starting Fri03/24/19 at 1433, Until Fri03/26/19 at 1725, Constipation, DO NOT CRUSH OR OPEN Administer if no bowel movement within 48 hours to achieve: (1) One bowel movement at least every 48 hours, AND (2 ) without straining. If multiple PRN bowel medications ordered, start with polyethylene glycol, then lactulose, then oral bisacodyl, then bisacodyl suppository, t hen magnesium citrate, then tap water en cornelio. Multiple medications may be given concomitantly for constipation., Routine bisacodyl (DULCOLAX) suppository 10 mg 10 mg, Rectal, DAILY PRN, Starting Wed at 1433, Until Fri03/26/19 at 1725, Constipation, Administer if no bowel movement within 48 hours to achieve: (1) One bowel movement at least every 48 hour s, AND (2) without straining. If multipl e PRN bowel medications ordered, start with polyethylene glycol, then lactulose, then oral bisacodyl, then bisacodyl suppository, then magnesium citrate, then tap water enema. Multiple medications may b e given concomitantly for constipation., Routine diphenhydrAMINE (BENADRYL) injection 50 mg 1425 (Given - Provider: Dane Wolfe RN) 50 mg, Intravenous, EVERY 6 HOURS PRN, S tarting [place] 03/25/19 at 1404, Until Fri03/26/19 at 1725, Itching, Other, Drug reaction to ASA, Routine fentaNYL (PF) 50mcg/mL injection (CANCELED) 0819 (Given - Provider: Savanah Rodriguez RN)0830 (Given - Provider: Savanah Rodriguez RN)0839 (Given - Provider: Savanah Rodriguez RN)0847 (Given - Provider: Savanah Rodriguez RN)0928 (Given - Provider: Savanah Rodriguez RN) 25 mcg, Intravenous, EVERY 5 MIN PRN, St arting [place] 03/25/19 at 0751, Until [place] 03/25/19 at 1004, Pain, Hold for respiratory rate less than 8 breaths per minute. (maximum dose 100 mcg) For patients with in 0933 (Giv en - Provider: Savanah Rodriguez RN)0939 (Given - Provider: Savanah Rodriguez RN)0944 (Given - Provider: Savanah Rodriguez RN)0947 (Given - Provider: Savanah Rodriguez, GRACE)1001 (Given - Provider: Savanah Rodriguez RN) tracranial lesions, the maximum dose of fentaNYL is 50 mcg., Rou pietro hydrALAZINE (APRESOLINE) injection 10 mg 1221 (Given - Provider: Savanah Rodriguez RN)1236 (Given - Provider: Savanah Rodriguez RN - Comment: given per order, may repeat if BP not at target) 0819 (Given - Provider: Kale Polk) 10 mg, Intravenous, EVERY 1 HOUR PRN, St arting 03/24/19 at 1433, Until Fri03/26/19 at 1725, High Blood Pressure, Target systolic blood pressure (SBP) less than 160 mmHg. Administer 10 mg IV . May rep eat once in 15 minutes if SBP greater th an target BP (caution if HR greater than 90). Use if labetalol ineffective after 1 hour., Routine hydrOXYzine (ATARAX) tablet 25 mg (CANCELED) 2054 (Giv en - Provider: Briseida Fuchs RN) 112 (Given - Provider: Gabriela Joyner RN) 25 mg, Oral, DAILY PRN, Starting 03/02 at 1430, Until [place] 03/25/19 at 1327, headaches, Routine hydrOXYzine (ATARAX) tablet 25 mg 2123 (Given - Provider: Eliza Camacho RN) 1327 (Given - Provider: Rose Smith RN) 25 mg, Oral, EVERY 4 HOURS PRN, Starting [place] 03/25/19 at 1328, Until Fri03/26/19 at 1725, Anxiety, headaches, Routine iodixanol (VISIPAQUE) 320 mg iodine/mL injection 450 mL (COM PLETED) 1009 (Given - Provider: Maine Vega) 450 mL, Intra-arterial, ONCE PRN, 1 dose , Starting [place] 03/25/19 at 1009, Until [place] 03/25/19 at 1009, Per Protocol, Routine labetalol (NORMODYNE,TRANDATE) injection 10-20 mg 10-20 mg, Intravenous, EVERY 1 HOUR PRN, Starting 03/24/19 at 1433, Until Fri03/26/19 at 1725, High Blood Pressure, Target systolic blood pressure (SBP) less than 160 mmHg. Administer 10 mg over 2 mi nutes. May repeat every 15 minutes if SB P remains above goal. If inadequate effect with second 10 mg dose then increase dose to 20 mg for subsequent dosing every 15 minutes. Dose not to exceed 300 mg pe r day. Hold if pulse is less than 50 beats per minute., Routi ne LORazepam (ATIVAN) injection 1 mg (COMPLETED) 620 (Given - Provider: Briseida Fuchs RN) 1 mg, Intravenous, ONCE PRN, 1 dose, Sta rting [place] 03/25/19 at 0610, Until [place] 03/25/19 at 0621, Anxiety, Routine magnesium hydroxide (Milk of Magnesia) (240 mg/mL) oral liquid 1 0 mL 10 mL, Oral, DAILY PRN, Starting 03/02 at 1433, Until Fri03/26/19 at 1725, Constipation, Administer if needed per patient's routine or if no bowel movement within 48 hours to achieve: (1) One shar l movement every 48 hours, AND (2) Witho ut straining. If multiple PRN bowel medications ordered, start with magnesium hydroxide, then bisacodyl. Multiple medications may be given concomitantly for constipation., Routine midazolam (PF) (VERSED) injection 0.5-2 mg (CANCELED) 0817 (Given - Provider: Savanah Rodriguez RN)0836 (Given - Provider: Savanah Rodriguez RN)0939 (Given - Provider: Savanah Rodriguez RN)0948 (Given - Provider: Savanah Rodriguez, GRACE)1001 (Given - Provider: Savanah Rodriguez, GRACE) 0.5-2 mg, Intravenous, EVERY 5 MIN PRN, Starting [place] 03/25/19 at 0751, Until [place] 03/25/19 at 1004, Anxiety, Hold for delirium/agitation. (Maximum dose 4 mg). For procedural sedation only with direct provider supervision and verbal order., Routine montelukast (SINGULAIR) tablet 10 mg 10 mg, Oral, DAILY PRN, Starting 03/02 at 1405, Until Fri03/26/19 at 1725, Drug reaction to ASA, Routine ondansetron (ZOFRAN) injection 4-8 mg(Linked Group 3) 4-8 mg, Intravenous, EVERY 8 HOURS PRN, Starting Fri03/24/19 at 1433, Until Fri03/26/19 at 1725, Nausea, If multiple antiemetics are ordered, use ondansetron first, prochlorperazine second, and metac lopramide third. Start with 4mg and if ineffective in 30 minutes, give an additional 4mg ondansetron (ZOFRAN) tablet 4-8 mg(Linked Group 3) 4-8 mg, Oral, EVERY 8 HOURS PRN, Startin g Fri03/24/19 at 1433, Until Fri03/26/19 at 1725, Nausea, Vomiting, If multiple antiemetics are ordered, use ondansetron first, prochlorperazine second, and me taclopramide third. PO Preferred. If p atient unable to take PO, may give IV if ordered. Start with 4mg and if ineffective in 45 minutes, give an additional 4mg, Routine polyethylene glycol (MIRALAX) packet 17 g 17 g, Oral, DAILY PRN, Starting 03/24 at 1433, Until Fri03/26/19 at 1725, Constipation, Administer if no bowel movement within 48 hours to achieve: (1) One bowel movement at least every 48 hours, AND (2) without straining. If multiple P RN bowel medications ordered, start with polyethylene glycol, then lactulose, then oral bisacodyl, then bisacodyl suppository, then magnesium citrate, then tap wa ter enema. Multiple medications may be g iven concomitantly for constipation., Routine No Frequency Medication Order 03/24/2019 03/25/2019 03/26/2019 heparin (porcine) 1,000 unit/mL injection (COMPLETED) 1000 (Given - Provider: Savanah Rodriguez RN) 1 dose, Starting Kerry 03/25/19 at 0959, Un til Kerry 03/25/19 at 1000, Amaya Braswell: cabinet override Linked Groups Order Group 1: acetaminophen (TYLENOL) tablet 1,000 mgJump to med 1,000 mg, Oral, EVERY 6 HOURS SCHEDULED, First dose on Kerry 03/25/19 at 1800, Until Discontinued
Do not exceed 4000 mg acetaminophen per day.
Routine Or acetaminophen (TYLENOL) suppository 975 mgJump to med 975 mg, Rectal, EVERY 6 HOURS SCHEDULED, First dose on Kerry 03/25/19 at 1800, Until Discontinued
Give per rectum (ID) if unable to take PO. Do not exceed 4000 mg acetaminophen per day.
Routine Group 2: famotidine (PEPCID) tablet 20 mgJump to med 20 mg, Oral, 2 TIMES DAILY, First dose o n Fri03/24/19 at 2100, Until Discontinued
If unable to take PO, may give IV
Routine Or famotidine (PEPCID) injection 20 mgJump to med 20 mg, Intravenous, 2 TIMES DAILY, First dose on Fri03/24/19 at 2100, Until Discontinued, Routine Group 3: ondansetron (ZOFRAN) tablet 4-8 mgJump to med 4-8 mg, Oral, EVERY 8 HOURS PRN, Startin g Fri03/24/19 at 1433, Until Fri03/26/19 at 1725, Nausea, Vomiting
If multiple antiemetics are ordered, use ondansetron first, prochlorperazine second , and metaclopramide third. PO Pr eferred. If patient unable to take PO, may give IV if ordered. Start with 4mg and if ineffective in 45 minutes, give an additional 4mg
Routine Or ondansetron (ZOFRAN) injection 4-8 mgJump to med 4-8 mg, Intravenous, EVERY 8 HOURS PRN, Starting Fri03/24/19 at 1433, Until Fri03/26/19 at 1725, Nausea
If multiple antiemetics are ordered, use ondansetron first, prochlorperazine second, a nd metaclopramide third. Start wi th 4mg and if ineffective in 30 minutes, give an additional 4mg
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
--- OUTSIDE RECORDS SUMMARY | 2022-07-03 09:04 | XMS_ITS | Encounter Summary ---
:1975 [place] [address] Care Team Providers Name Role Phone Ryne Harris MD Primary Care Provider Reason for Visit Auth/Cert Specialty Diagnoses / Procedures Referred By Contact Refer red To Contact Diagnoses Headache TIA Procedures EMERGENCY IPI Referral ID Status Reason Start Date Expiration Date Visits Requ ested Visits Authorized [id number] 1 1 Encounter Details Date Type Department Care Team Description 03/13/2019 - [facility] Neuroscience Special Mikaela Plunkett MD [facility] [address] TIA (transient ischemic attack); 03/18/2019 Encounter Care Unit Aline Louise MD [facility] [place] [address] Chest pain, unspecified type; [facility] Acute non intractable headache, [place] [id number] Social History Tobacco Use Types Packs/Day Years [...] Sign Reading Time Taken Comments Blood Pressure 123/77 03/18/2019 8:00 AM EDT Pulse 72 03/18/2019 8:00 AM EDT Temperature 36.4 ??C (97.5 ??F) 03/18/2019 8:06 AM EDT Respiratory Rate 23 03/18/2019 8:00 AM EDT Oxygen Saturation 99% 03/18/2019 8:00 AM EDT Inhaled Oxygen Concentration - - Weight 111.6 kg (246 lb 0.5 oz) 03/13/2019 3:00 PM EDT Height 177.8 cm (5' 10) 03/13/2019 3:50 PM EDT Body Mass Index 35.3 03/13/2019 3:00 PM EDT documented in this encounter Discharge Summaries Prior, Michele Maria MD - 03/18/2019 10:57 AM EDT Discharge Summary Patient Name: Jaswant Nice Patient Age: 43 y.o. Language: Hebrew Race: White Ethnicity: Not nor Admit Date: 03/13/2019 Discharge Date: 03/18/2019 Attending Physician: Aline Tay MD Discharge Physician: Aline Tay MD Follow-up Recommendations for Providers: - Patient has been advised to monitor daily blood pressure using home cuff, should follow up with PCP regarding blood pressure control and medication modifications as needed - Patient will follow up with neurosurgery regarding incidental findings of aneurysms - Follow up on pending pheochromocytoma labs Inpatient Provider Contact Information: For questions regarding this document or issues related to this hospitalization on the Neurology Service, please contact the author(s) of this discharge summary through the [facility] Brush Filler Hand . Discharge Diagnoses (Hospital Problems) and Secondary Diagnoses (Chronic Problems): Primary Diagnosis: Headaches, hypertensive urgency Secondary Diagnosis: intracranial aneurysms Active Hospital Problems Diagnosis ??? Headache Resolved Hospital Problems No resolved problems to display. There are no active non-hospital problems to display for this patient. History reviewed. No pertinent past medical history. History of Presentation: Jaswant Nice is a 43 y.o. left handed male with a PMH of migraines (as a teenager), s/p lumbar fusion(L5-S1),who presents as a transfer from [facility] due to concern of new onset severe headache and left sided weakness/numbness. Last night he was seen normal by his girlfriend at 10 PM. He woke up twice around 12:30 AM, 2 AM, 5 AM with sweats. He had diarrhea and that was when he noticed the headache, which was a 10/10. +photophobia, denies phonophobia, +nausea, no vomiting. Denies any vision changes. His girlfriend gave him an ice pack for his head, with no relief. After that the pressure was so severe, after that he does not recall any further events. His girlfriend called 911. He was face down and she noticed some trembling (no urinary incontinence, no tongue biting). There were concerns of initial LOC when he went down to the ground, but after that he was making intermittent noises and words. When EMS arrived there wassome concern that he couldn't move himself. He was transferred via EMS to [facility]. There he was lethargic, confused, and had left sided weakness/numbness. His initial BP was 192/101, his BG was 114. He had a bedside cardiac/abd US, and a CT head which were negative. 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 This resolved during his time at [facility]. At this point [facility] was called for transfer for further evaluation for migraine vs. TIA. His CBC, BMP were unremarkable. ?? Currently his headache is a 3-4/10. ?? When he was younger and had migraines, he did have +photophobia, +phonophobia, +nausea, +vomiting, no vision changes. He does not recall having weakness/numbness one on side of his body with his migraines. He does recall having some sort of prescription medication for his migraines as well. Physical Exam at Admission Vitals: Temp: -- Heart Rate: -- Resp: -- BP: ()/() SpO2: -- Heart Rate from SpO2: -- Gen: Patient of apparent stated age, well nourished, well developed, awake, alert, NAD Neck: Supple, no meningismus CV: + S1, S2, RRR, no murmur Resp: CTA B/L Abd: +normoactive bowel sounds, soft, nontender, nondistended Ext: No edema. 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 UE: 5/5 R, 5/5 L Arm abduction at shoulder 5/5 R, 5/5 L Elbow extension 5/5 R, 5/5 L Elbow flexion 5/5 R, 5/5 L Change Agent LE: 5/5 R, 5/5 L Hip flexion 5/5 R, 5/5 L Knee extension 5/5 R, 5/5 L Knee flexion 5/5 R, 5/5 L Foot dorsiflexion 5/5 R, 5/5 L Foot plantar flexion Sensation: Decreased to light touch and pinprick on the left UE and left LE, intact to vibration in bilateral UE and decreased in the left LE. Reflexes: DTRs Slightly more brisk on the left with no spread 2+ R, 2+ L Biceps 2+ R, 2+ L Brachioradialis 2+ R, 2+ L Triceps 2+ R, 2+ L Patellar 1+ R, 1+ L Achilles tendon Toes - R down, L down Coordination: Finger to nose intact, no dysmetria Rapid alternating movements & finger tapping smooth and symmetric Heel-mims intact No tremor Gait: did not assess ?? NIH Stroke Scale: (bold applicable choices) NIH Stroke Scale at Initial Evaluation: ?? 1.a. Level of consciousness: 0-Alert 1-Not alert, but arousable with minimal stimulation 2-Not alert, requires repeat stimulation to attend 3-Coma 1.b. Ask patient the month and their age: 0-Answers both correctly 1-Answers one correctly 2-Both incorrect 1.c. Ask patient to open and close eyes: 0-Obeys both correctly 1-Obeys one correctly 2-Both incorrect 2. Best gaze (horizontal eye movement): 0-Normal 1-Partial gaze palsy 2-Forced deviation 3. Visual field testin-No visual field loss 1-Partial hemianopia 2-Complete hemianopia 3-Bilateral hemianopia (blind including cortical blindness) 4. Facial paresis (Ask patient to show teeth or raise eyebrows and close eyes tightly): 0-Normal symmetrical movement 1-Minor paralysis (flattened nasolabial fold, asymmetry on smiling) 2-Partial paralysis (total or near paralysis of lower face) 3-Complete paralysis of one or both sides (absence of facial movement in the upper and lower face) 5. Motor function right arm: 0-Normal (extends arm 90 degrees for 10 seconds without drift) 1-Drift 2-Some effort against gravity 3-No effort against gravity 4-No movement UT-Untestable (Joint fused or limb amputated) 5. Motor function- left arm: 0-Normal (extends arm 90 degrees for 10 seconds without drift) 1-Drift 2-Some effort against gravity 3-No effort against gravity (but baseline) 4-No movement UT-Untestable (Joint fused or limb amputated) 6. Motor function right le-Normal (extends leg 30 degrees for 5 seconds without drift) 1-Drift 2-Some effort against gravity 3-No effort against gravity 4-No movement UT-Untestable (Joint fused or limb amputated) 6. Motor function-left le-Normal (extends leg 30 degrees for 5 seconds without drift) 1-Drift 2-Some effort against gravity 3-No effort against gravity 4-No movement UT-Untestable (Joint fused or limb amputated) 7. Limb ataxia: 0-No ataxia 1-Present in one limb 2-Present in two limbs 8. Sensory (Use pinprick to test arms, legs, trunk and face compare side to side): 0-Normal 1-Mild to moderate decrease in sensation 2-Severe to total sensory loss 9. Best language (describe picture, name items, read sentences): 0-No aphasia 1-Mild to moderate aphasia 2-Severe aphasia 3-Mute 10. Dysarthria (read several words): 0-Normal articulation 1-Mild to moderate slurring of words 2-Near unintelligible or unable to speak UT-Intubated or other physical barrier 11. Extinction and inattention: 0-Normal 1-Inattention or extinction to bilateral simultaneous in one of the sensory modalities 2-Severe ariana-inattention or ariana-inattention to more than one modality ?? TOTAL SCORE: 0 Hospital Course: Jaswant Nice is a 43 y.o. left??handed male??with a PMH of migraines??(as a teenager), s/p lumbar fusion (L5-S1),who presented as a transfer from [facility] to the neurology services for further evaluation new onset severe headache and left sided weakness. By time of admission, headache was a 3-4/10 and leftsided symptoms had mostly resolved. He initially came as a stroke alert, but NIHSS was 0 and review of imaging from [facility] was not concerning. Bedside LP was attempted but unsuccessful; LP under fluoro was done on 03/13 and CSF results were unrevealing, including negative xanthochromia and normal WBC, protein, glucose. MRI brain was ordered but not possible due to spinal cord stimulator; a repeat CT Head was done instead and unremarkable. EEGdid not show any epileptic activity. During the admission, the patient had episodes of hypertension which likely contributed to headache.It is difficult to determine if his EGAN is causing the increased blood pressure or vice versa. In addition patient does seem to have several life stressors that are likely contributing to his worsening EGAN's. With his presentation of blood pressure spikes, diaphoresis and severe headache we completed work up for pheochromocytoma including 24hr urine collection is in process. His blood pressure regimen was modified - amlodipine 10 mg and lisinopril 10 mg were added. BP was then under better control, such that he was not requiring any prn medications for over 24 hours. ?? Headaches were treated with fluids, IV magnesium, naproxen with good relief. BIT consulted for home life stressors. The patient was evaluated by Rehabilitation Services and deemed appropriate for discharge to home. Operations/Major Procedures: Lumbar puncture under fluoro 03/13/19 Consultations 1. PT/OT Diagnostic Tests & Neuroimaging: Date Study Results 03/16 CXR IMPRESSION No acute cardiopulmonary process. 03/14 CT Head FINDINGS: No intracranial hemorrhage, mass, mass effect, hydrocephalus, midline shift, or large acute infarction. The subarachnoid spaces are normal. No significant osseous abnormality. The visualized portions of the paranasal sinuses and mastoid air cells are clear. ?? 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 ? IMPRESSION 1. No acute intracranial disease. Specifically, no evidence of acute infarction. 2. 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 EEG ELECTROENCEPHALOGRAPHER'S REPORT: Background During the awake state with the eyes closed the background consisted of a medium amplitude, 10 Hz posterior reactive rhythm that attenuated appropriately with eye opening. Beta activity was distributeddiffusely with an anterior predominance. There was a normal anterior-posterior voltage gradient. With eye opening the background activity changed to a low voltage mixture of alpha, beta, and occasionaltheta range frequencies. There were no significant asymmetries of background activity noted. ?? Sleep Stage II sleep was obtained and consisted of symmetrical sleep spindles and vertex sharp waves. ?? Hyperventilation Hyperventilation was not performed. ?? Photic Stimulation Photic stimulation using a step-barahona increase in photic frequency varying from 1-21 Hertz did not result in bilateral driving response. Also there is no appearance of abnormal activity. ?? Abnormal EEG Activity Diffuse beta ?? EKG EKG revealed normal sinus rhythm. ?? PRIOR EEG: No previous EEG reports were available. INTERPRETATION/CLINICAL CORRELATION: This EEG is abnormal due to excess beta, likely from the sedative medication. No epileptiform discharges or clinical seizures captured. Much of the recording was spent in sleep. Labs: Recent Results (from the past 168 hour(s)) Calcium Collection Time: 03/13/19 4:20 PM Result Value Ref Range Calcium 8.9 8.5 - 10.5 mg/dL Magnesium Collection Time: 03/13/19 4:20 PM Result Value Ref Range Magnesium 0.76 0.69 - 1.07 mmol/L Phosphorus Collection Time: 03/13/19 4:20 PM Result Value Ref Range Phosphorus 3.1 2.5 - 4.5 mg/dL Hepatic Function Panel Collection Time: 03/13/19 4:20 PM Result Value Ref Range Total Protein 6.8 6.1 - 8.0 gm/dL Albumin 4.3 3.2 - 5.2 gm/dL AST 41 (H) 0 - 39 unit/L ALT 55 0 - 55 unit/L Alk Phos 58 40 - 120 unit/L Total Bilirubin 0.9 0.2 - 1.3 mg/dL Bili, Direct 0.2 0.0 - 0.3 mg/dL Troponin Collection Time: 03/13/19 4:20 PM Result Value Ref Range Troponin-T <0.01 0.00 - 0.00 ng/mL Hemoglobin A1c Collection Time: 03/13/19 4:20 PM Result Value Ref Range Hemoglobin A1C 5.3 4.3 - 5.6 % Est Avg Gluc 105 mg/dL LDL Cholesterol, Direct Collection Time: 03/13/19 4:20 PM Result Value Ref Range LDL Chol Direct 149 mg/dL HDL/Cholesterol Profile Collection Time: 03/13/19 4:20 PM Result Value Ref Range Chol, Total 188 mg/dL HDL 37 mg/dL Chol/HDL Ratio 5.1 ratio Chol/HDL Interpretation See Note Triglyceride Collection Time: 03/13/19 4:20 PM Result Value Ref Range Triglycerides 141 mg/dL Hemogram Collection Time: 03/13/19 4:20 PM Result Value Ref Range WBC 7.9 4.0 - 9.5 x10(3)/mcL RBC 4.55 (L) 4.58 - 5.54 x10(6)/mcL Hemoglobin 14.4 13.7 - 16.5 gm/dL Hematocrit 42.3 40.5 - 48.5 % MCV 93.0 82.9 - 93.1 fL MCH 31.6 27.5 - 32.1 pg MCHC 34.0 32.0 - 35.7 gm/dL Platelets 236 145 - 357 x10(3)/mcL RDWSD 42.3 36.0 - 45.0 fL RDWCV 12.3 11.4 - 13.8 % MPV 9.1 7.6 - 12.9 fL nRBC % Auto 0.0 % nRBC Abs Auto 0.000 0.000 - 0.000 x10(3)/mcL Differential, Automated Collection Time: 03/13/19 4:20 PM Result Value Ref Range Neutrophils % 62.6 % Neutr Abs (ANC) 4.94 1.70 - 6.10 x10(3)/mcL Lymphocytes % 28.6 % Lymphocytes Abs 2.2 0.9 - 3.2 x10(3)/mcL Monocytes % 7.0 % Monocyte Abs 0.6 0.3 - 0.9 x10(3)/mcL Eosinophils % 1.0 % Eosinophils Abs 0.1 0.0 - 0.4 x10(3)/mcL Basophils % 0.5 % Basophils Abs 0.0 0.0 - 0.1 x10(3)/mcL Immature Gran % 0.30 % Hedy Gran Abs 0.02 0.00 - 0.04 x10(3)/mcL BMP w/fasting Glucose Collection Time: 03/13/19 4:20 PM Result Value Ref Range Glucose Fasting 116 (H) 65 - 99 mg/dL BUN 13 10 - 20 mg/dL Creatinine 0.90 0.80 - 1.50 mg/dL Sodium 141 135 - 145 mmol/L Potassium 3.8 3.5 - 5.0 mmol/L Chloride 104 98 - 107 mmol/L CO2 25 22 - 31 mmol/L Anion Gap 12 5 - 15 mmol/L Calcium 8.9 8.5 - 10.5 mg/dL eGFR 105 >=60 mL/min/1.73 m?? eGFR 122 >=60 mL/min/1.73 m?? Sedimentation rate Collection Time: 03/13/19 4:20 PM Result Value Ref Range Sed Rate 4 0 - 15 mm/hr Urinalysis with reflex Culture Collection Time: 03/13/19 6:01 PM Result Value Ref Range Glucose UA Negative Negative mg/dL Protein UA 30 (A) Negative mg/dL Bilirubin UA Negative Negative mg/dL Urobilinogen UA Normal Normal mg/dL pH UA 5.0 5.0 - 8.0 Blood UA Negative Negative mg/dL Ketones UA Negative Negative mg/dL Nitrite UA Negative Negative Leukocytes UA Negative Negative mcL Appearance UA Hazy (A) Clear Spec [place] UA >1.035 (H) 1.002 - 1.030 Color UA Yellow Yellow Culture Reflexed No Urine Hold Collection Time: 03/13/19 6:01 PM Result Value Ref Range Urine Hold Sample in lab. Urinalysis Microscopic Exam Collection Time: 03/13/19 6:01 PM Result Value Ref Range RBC UA 1 0 - 3 /HPF WBC UA 2 0 - 3 /HPF Squam Epith UA 1 <=4 /HPF Hyaline Cast UA 2 0 - 2 /LPF Protein Level CSF Collection Time: 03/13/19 6:32 PM Result Value Ref Range T Protein, CSF 33 15 - 45 mg/dL Xanthochromia Neg Glucose Level CSF Collection Time: 03/13/19 6:32 PM Result Value Ref Range Glucose, CSF 67 mg/dL CSF Culture Collection Time: 03/13/19 6:32 PM Result Value Ref Range Central Nervous System Culture No growth Gram Stain Cytocentrifuge Gram Stain performed No Neutrophils seen. No microorganisms seen. CSF DESC 1 Collection Time: 03/13/19 6:32 PM Result Value Ref Range Tube Num CSF #1 1 Color CSF #1 Colorless Colorless Appear CSF #1 Clear Clear Tot Vol CSF #1 2.8 mL CSF DESC 2 Collection Time: 03/13/19 6:32 PM Result Value Ref Range Tube Num CSF #2 2 Color CSF #2 Colorless Colorless Appear CSF #2 Clear Clear Tot Vol CSF #2 2.5 mL CSF DESC 3 Collection Time: 03/13/19 6:32 PM Result Value Ref Range Tube Num CSF #3 3 Color CSF #3 Colorless Colorless Appear CSF #3 Clear Clear Tot Vol CSF #3 2.1 mL CSF DESC 4 Collection Time: 03/13/19 6:32 PM Result Value Ref Range Tube Num CSF #4 4 Color CSF #4 Colorless Colorless Appear CSF #4 Clear Clear Tot Vol CSF #4 2.7 mL CSF Cell Count Collection Time: 03/13/19 6:32 PM Result Value Ref Range Tube # Ct CSF [address] 1 0 - 5 /mcl RBC CSF CT 0 /mcl Miscellaneous Lab request Collection Time: 03/13/19 7:00 PM Result Value Ref Range Misc Lab Result Request received in lab. EKG 12 Lead Collection Time: 03/14/19 10:08 AM Result Value Ref Range Ventricular rate 71 BPM Atrial Rate 71 BPM P-R Interval 174 ms QRS Duration 92 ms Q-T Interval 380 ms QTC Calculated (Bezet) 412 ms Calculated P Sharples 8 degrees Calculated R Sharples 64 degrees Calculated T Sharples 22 degrees INTERPRETATION Normal sinus rhythm Minimal voltage criteria for LVH, may be normal variant Borderline ECG No previous ECGs available Confirmed by MD JohnRosas ([id number]) on 03/14/2019 11:35:06 AM EKG 12 Lead Collection Time: 03/14/19 9:55 PM Result Value Ref Range Ventricular rate 66 BPM Atrial Rate 66 BPM P-R Interval 180 ms QRS Duration 90 ms Q-T Interval 398 ms QTC Calculated (Bezet) 417 ms Calculated P Sharples 4 degrees Calculated R Sharples 69 degrees Calculated T Sharples 24 degrees INTERPRETATION Normal sinus rhythm Minimal voltage criteria for LVH, may be normal variant When compared with ECG of 14-MAR-2019 10:08, No significant change was found Confirmed by MD Rose Michael ([id number]) on 03/15/2019 8:06:44 AM Troponin Collection Time: 03/14/19 9:58 PM Result Value Ref Range Troponin-T <0.01 0.00 - 0.00 ng/mL Basic Metabolic Panel (non-fasting) Collection Time: 03/15/19 2:23 AM Result Value Ref Range Glucose Lvl 130 65 - 199 mg/dL BUN 11 10 - 20 mg/dL Creatinine 0.85 0.80 - 1.50 mg/dL Sodium 143 135 - 145 mmol/L Potassium 3.8 3.5 - 5.0 mmol/L Chloride 108 (H) 98 - 107 mmol/L CO2 25 22 - 31 mmol/L Anion Gap 10 5 - 15 mmol/L Calcium 8.2 (L) 8.5 - 10.5 mg/dL eGFR 107 >=60 mL/min/1.73 m?? eGFR 125 >=60 mL/min/1.73 m?? Magnesium Collection Time: 03/15/19 2:23 AM Result Value Ref Range Magnesium 0.85 0.69 - 1.07 mmol/L Phosphorus Collection Time: 03/15/19 2:23 AM Result Value Ref Range Phosphorus 3.7 2.5 - 4.5 mg/dL Hepatic Function Panel Collection Time: 03/15/19 2:23 AM Result Value Ref Range Total Protein 6.2 6.1 - 8.0 gm/dL Albumin 3.9 3.2 - 5.2 gm/dL AST 19 0 - 39 unit/L ALT 42 0 - 55 unit/L Alk Phos 55 40 - 120 unit/L Total Bilirubin 0.2 0.2 - 1.3 mg/dL Bili, Direct 0.1 0.0 - 0.3 mg/dL Troponin Collection Time: 03/15/19 2:23 AM Result Value Ref Range Troponin-T <0.01 0.00 - 0.00 ng/mL Hemogram Collection Time: 03/15/19 2:23 AM Result Value Ref Range WBC 7.4 4.0 - 9.5 x10(3)/mcL RBC 4.09 (L) 4.58 - 5.54 x10(6)/mcL Hemoglobin 13.6 (L) 13.7 - 16.5 gm/dL Hematocrit 39.1 (L) 40.5 - 48.5 % MCV 95.6 (H) 82.9 - 93.1 fL MCH 33.3 (H) 27.5 - 32.1 pg MCHC 34.8 32.0 - 35.7 gm/dL Platelets 195 145 - 357 x10(3)/mcL RDWSD 41.4 36.0 - 45.0 fL RDWCV 11.9 11.4 - 13.8 % MPV 9.4 7.6 - 12.9 fL nRBC % Auto 0.0 % nRBC Abs Auto 0.000 0.000 - 0.000 x10(3)/mcL Differential, Automated Collection Time: 03/15/19 2:23 AM Result Value Ref Range Neutrophils % 50.7 % Neutr Abs (ANC) 3.77 1.70 - 6.10 x10(3)/mcL Lymphocytes % 38.3 % Lymphocytes Abs 2.8 0.9 - 3.2 x10(3)/mcL Monocytes % 8.0 % Monocyte Abs 0.6 0.3 - 0.9 x10(3)/mcL Eosinophils % 2.3 % Eosinophils Abs 0.2 0.0 - 0.4 x10(3)/mcL Basophils % 0.4 % Basophils Abs 0.0 0.0 - 0.1 x10(3)/mcL Immature Gran % 0.30 % Hedy Gran Abs 0.02 0.00 - 0.04 x10(3)/mcL TSH Collection Time: 03/15/19 2:23 AM Result Value Ref Range TSH 1.61 0.27 - 4.20 mcIU/mL Gold Tube HOLD Collection Time: 03/15/19 7:51 PM Result Value Ref Range Gold Hold Sample in lab. Green Tube HOLD Collection Time: 03/15/19 7:51 PM Result Value Ref Range Green Hold Sample in lab. T4, free Collection Time: 03/16/19 2:19 AM Result Value Ref Range Free T4 1.09 0.93 - 1.70 ng/dL Comprehensive metabolic panel (non-fasting) Collection Time: 03/16/19 2:19 AM Result Value Ref Range Glucose Lvl 136 65 - 199 mg/dL BUN 11 10 - 20 mg/dL Creatinine 0.77 (L) 0.80 - 1.50 mg/dL Sodium 141 135 - 145 mmol/L Potassium 3.5 3.5 - 5.0 mmol/L Chloride 106 98 - 107 mmol/L CO2 25 22 - 31 mmol/L Anion Gap 10 5 - 15 mmol/L Calcium 8.6 8.5 - 10.5 mg/dL Total Protein 6.2 6.1 - 8.0 gm/dL Albumin 3.7 3.2 - 5.2 gm/dL AST 22 0 - 39 unit/L ALT 43 0 - 55 unit/L Alk Phos 54 40 - 120 unit/L Total Bilirubin 0.2 0.2 - 1.3 mg/dL eGFR 112 >=60 mL/min/1.73 m?? eGFR 130 >=60 mL/min/1.73 m?? Vitamin B12 Collection Time: 03/16/19 2:19 AM Result Value Ref Range Vitamin B-12 1,045 232 - 1,245 pg/mL Folate, serum Collection Time: 03/16/19 2:19 AM Result Value Ref Range Folate Lvl 11.5 4.8 - 24.2 ng/mL Cortisol Collection Time: 03/16/19 8:09 AM Result Value Ref Range Cortisol 6.2 mcg/dL U24 Hrs and Volume Collection Time: 03/17/19 10:00 AM Result Value Ref Range Hours Collected 24 hour(s) Urine TV (ml) 2,750 mL Pending Studies and Lab Data: The patient will need the following 5 tests completed on: 03/13/2019 1. Metanephrines, Fractionated, urine, 24 hour 4. Catecholamines Frac Free urine, 24 hr 2. Metanephrines, Fractionated Free, plasma 5. Catecholamines Fractionated Free, plasma 3. Methylmalonic acid, serum Diagnosis: Authorizing Provider: Aline Tay MD Vital Signs at Discharge: BP: 123/77, Heart Rate: 72, Temp: 36.4 ??C (97.5 ??F), Resp: 23, Height: 177.8 cm (5' 10) (03/13/19 1550) Weight: 111.6 kg (246 lb 0.5 oz) (03/13/19 1500) Functional and Cognitive Status: PT Assessment: Pt tolerated session well. He was able to ambulate about 15-20 ft with a RW and CGA with three seated rest breaks. He continued to be very anxious requiring frequent cues for breathing as well as a pair of sunglasses in the hallway sec to photosensitivity. He reported increased headachepain after walking (up to 5/10). Following ambulation, patient reported feeling lightheaded and nauseous (There is phlegm in my throat). He was positioned to comfort in supine, and an ice pack was provided. Patient voiced feeling comfortable. Home safety education and recommendations were provided to patient and patient's SO in conjunction with OT.She reports having a good support system at home, including herself and two 18 YO boys and a 17 YO daughter. Patient reports he is looking forward to discharging to home. He will need a RW and home services to keep progressing his mobility. BP after walkin/98 mmHg. Please see the flow sheet below for patient details and mobility. Pt would benefit from ongoing physical therapy interventions. Staff Mobility Recommendations: CGA with RW with chair follow if outside room OT Assessment: Pt seen for skilled OT interventions. Pt seen with PT with focus on functional mobility. Pt presented asleep in bed and awoke to stimulus to be agreeable to services. Pt noted with increased bed mobility today; he was able to perform without physical assistance and use of bed rails. Pt participated in ambulating requiring seated rest breaks. Pt continues with hypertension; RN aware. Ptreported feeling lightheaded during session with increased headache. Pt and SO educated on equipmentfor discharge planning. Recommend Pt have 24/7 care and supervision upon initial transition home with home health services until deemed appropriate for outpatient services. Pt will benefit from ongoing therapeutic interventions to achieve pt's and therapy goals. Please refer to associated flowsheet data listed below for treatment session details. Staff Recommendations: Encourage OOB activity and participation in all self care tasks ?? Physical Exam at Discharge: Gen: Patient of apparent stated age, well nourished, well developed, awake, alert, NAD Neck: Supple, no meningismus CV: + S1, S2, RRR, no murmur Resp: CTA B/L Abd: +normoactive bowel sounds, soft, nontender, nondistended Ext: No edema. No bony deformity Neuro Exam: MS: Awake, alert, clear language, no dysarthria, follows commands CN: PERRL, EOMI No facial asymmetry Hearing intact to voice Palate elevates symmetrically, tongue protrudes midline SCM and trap strength intact Motor: Normal bulk and tone UE: 5/5 R, 5/5 L Arm abduction at shoulder 5/5 R, 5/5 L Elbow extension 5/5 R, 5/5 L Elbow flexion 5/5 R, 5/5 L Change Agent LE: 5/5 R, 5/5 L Hip flexion 5/5 R, 5/5 L Knee extension 5/5 R, 5/5 L Knee flexion 5/5 R, 5/5 L Foot dorsiflexion 5/5 R, 5/5 L Foot plantar flexion Sensation: Intact to light touch throughout Reflexes: Did not assess Coordination: Finger to nose intact, no dysmetria No tremor Gait: did not assess ?? Discharge Conditions/Prognosis: Headaches, hypertensive urgency, improved with BP control Discharge to: Home Updated Allergies/ADRs: Allergies Allergen Reactions ??? Aspirin CIS - shortness of breath Immunizations Given this Hospitalization: Immunization History Administered Date(s) Administered ??? Influenza Vaccine, Whole 10/06/2007 Discharge Medications: Your Medications New Medications Dose Details amLODIPine 10 mg Tab Commonly known as: NORVASC Take 1 tablet by mouth daily. Start taking on: 03/19/2019 10 mg Quantity: 90 tablet Refills: 3 hydrOXYzine 25 mg Tab Commonly known as: ATARAX Take 1 tablet by mouth daily as needed (headaches). 25 mg Quantity: 30 tablet Refills: 12 lisinopril 10 mg Tab Commonly known as: PRINIVIL;ZESTRIL Take 1 tablet by mouth daily. Start taking on: 03/19/2019 10 mg Quantity: 90 tablet Refills: 3 melatonin 3 mg Tab Take 2 tablets by mouth nightly. 6 mg Quantity: 60 tablet Refills: 3 Miscellaneous Medical Supply Misc Blood pressure cuff - one Quantity: 1 each Refills: 0 naproxen 500 mg Tab Commonly known as: NAPROSYN Take 1 tablet by mouth 2 times daily as needed (limit use to two times per week). 500 mg Quantity: 60 tablet Refills: 3 STOPPED Medications HYDROcodone-acetaminophen 5-500 mg Tab Commonly known as: VICODIN IMITREX 25 mg Tab Generic drug: SUMAtriptan naproxen sodium 220 mg Cap Commonly known as: ALEVE senna-docusate 8.6-50 mg Tab Commonly known as: PERICOLACE Smoking Status at Discharge: Former, QUIT 20 years, 1PPD Instructions Given to Patient at Discharge: Patient Instructions You were admitted to the neurology service at [facility]. Your diagnosis: headaches, hypertension Medication Changes: New medications: amlodipine 10 mg daily, lisinopril 10 mg daily Medications for headaches: - Take hydroxyzine 25 mg, naproxen 500 mg as needed for moderate to severe headaches - Limit use to two doses per week to limit any GI side effects, rebound DO NOT TAKE any sumatriptan, other triptan type medications given your cerebral aneurysms Patient Instructions: ??? Check your blood pressure daily with a home blood pressure cuff, call your PCP if the systolic blood pressure is running greater than 140 ??? Call your doctor or seek medical attention if you have ??? weakness or numbness in your face or one of your limbs or difficulty speaking ??? loss of vision ??? seizures or loss of consciousness ??? Diet: we recommend a heart healthy diet: low fat, low cholesterol, low concentrated sweets. ??? Activity Restrictions: Continue to work with PT and OT ??? Driving Restrictions: No new driving restrictions ??? Home oxygen therapy: none needed ??? Anticoagulation Follow-up and Instructions: none FOLLOWUP APPOINTMENT: You will have an outpatient followup appointment in the neurology clinic at [facility]. If not already listed in this document, we will contact you to schedule this appointment. -- If 1 week passes by after you are discharged and you still do not have an appointment, please call [phone]. You have a follow up with your PCP Dr. Harris on Friday, March 22, 2019 at 8:55am. The office numberis [phone] You will be called to schedule an appointment with Dr. Dejon Dey in neurology. Call our office if you do not hear in 2 weeks. Future Appointments and Orders Future Appointments and Orders Future Appointments Provider Department Dept Phone 03/24/2019 11:00 AM Nikolas Persaud MD Neurosurgery at [place] Arrive at: Sales And Marketing Professional Area [phone] Future Orders Complete By Expires Referral to Home Health - at DISCHARGE [[id number] CPT(R)] As directed Process Instructions: Scheduling Instructions: Comments: DOCUMENTATION FOR VNA SERVICES (INCLUDING THOSE PATIENTS WITH MEDICARE COVERAGE REQUIRING HOME VNA SERVICES AND/OR HOSPICE SERVICES) PATIENT'S LOCATION: Jaswant Nice [address] [facility] [id number] (home) Cell: Telephone Information: Candlemaker's Name: Jaswant-pt and family In discussion with the attending physician, it is certified that this patient is under their care and that they, or a Nurse Practitioner,Clinical Nurse specialist or Physician High School Art Teacher who is working directly with them, had a face to face encounter that meets the physician face to face encounter requirements with this patient on03/17 (Please provide d/c date) The encounter with the patient was in whole, or in part, for the following medical condition, which is the primary reason for home health care services: s/p surgical intervention for spinal D.O. With headache and L sided numbness/tingling. In discussion with the provider, it is certified that, based on their findings, the following services are medically necessary for home health services. To provide the following care/treatments with the clinical findings supporting the need for servicesas follows: HOME CARE ORDERS: RN ORDERS:Assess wound or incision, vital signs, cardiopulmonary status, nutrition, hydration, elimination, meds effectiveness and management; reinforce education re health issues ROD AND TUBE STRAIGHTENER:For assistance with bathing dressing and grooming PT ORDERS: Continue rehab for endurance, gait stability and strength with mobility and transfers. Home safety evaluation. Home exercise program if appropriate. OT: assess and continue rehab for managing ADL's. RECREATION ATTENDANT:For emotional support and community case management HOME HEALTH CARE AGENCY: [facility]. PHONE: [phone] FAX: [phone] Start of care: 24-48 hours post discharge Please note that any additional orders needs or changes will need to be obtained from this patient'sPCP: Ryne Harris MD [address] [place] [id number] All VNA agencies which cover the area of patient's residence have been reviewed, either verbally or in writing, and patient/family have chosen the home health care agency noted Questions: Agency name and contact information: [facility] Patient location post discharge: Home-[place], [place] What services are requested: Registered Nurse Physical Therapy Social Work Occupational Therapy Home Health Aide Start date: 03/10/2019 Responsible MD post discharge contact info: PCP Walker standard [[id number] Custom] As directed Process Instructions: Scheduling Instructions: Comments: Please provide one standard FWW to be delivered to pt's room N525 on day of discharge. Pt requires r/t gait instability secondary to s/p surgical intervention for spinal DO with headache and left sided numbness/tingling post op. Questions: Vendor Name/Contact information: [facility] [place] Comment - ht-5'10, wt- 246 lbs General Instructions Outpatient Mental Health Counseling Sadie Roblero, Psychologist [place], [place] [facility] [address] [place] [address] Marysol Spivey, [facility] [address] [facility], [address] [place], [place] You may also search [email or web address] or [employer] for therapists in your area. Mindfulness-Based Stress Reduction Resources Http://www.freemindfulness.org/ Https://www.mindful.org/ https://[email or web address].com/ Future Appointments and Orders Future Appointments and Orders Future Appointments Provider Department Dept Phone 03/24/2019 11:00 AM Nikolas Persaud MD Neurosurgery at [place] Arrive at: Sales And Marketing Professional Area [phone] Future Orders Complete By Expires Referral to Home Health - at DISCHARGE [[id number] CPT(R)] As directed Process Instructions: Scheduling Instructions: Comments: DOCUMENTATION FOR VNA SERVICES (INCLUDING THOSE PATIENTS WITH MEDICARE COVERAGE REQUIRING HOME VNA SERVICES AND/OR HOSPICE SERVICES) PATIENT'S LOCATION: Jaswant Erwin Nice [address] [place] [phone] (home) Cell: Telephone Information: Candlemaker's Name: Jaswant-pt and family In discussion with the attending physician, it is certified that this patient is under their care and that they, or a Nurse Practitioner,Clinical Nurse specialist or Physician High School Art Teacher who is working directly with them, had a face to face encounter that meets the physician face to face encounter requirements with this patient on03/17 (Please provide d/c date) The encounter with the patient was in whole, or in part, for the following medical condition, which is the primary reason for home health care services: s/p surgical intervention for spinal D.O. With headache and L sided numbness/tingling. In discussion with the provider, it is certified that, based on their findings, the following services are medically necessary for home health services. To provide the following care/treatments with the clinical findings supporting the need for servicesas follows: HOME CARE ORDERS: RN ORDERS:Assess wound or incision, vital signs, cardiopulmonary status, nutrition, hydration, elimination, meds effectiveness and management; reinforce education re health issues ROD AND TUBE STRAIGHTENER:For assistance with bathing dressing and grooming PT ORDERS: Continue rehab for endurance, gait stability and strength with mobility and transfers. Home safety evaluation. Home exercise program if appropriate. OT: assess and continue rehab for managing ADL's. RECREATION ATTENDANT:For emotional support and community case management HOME HEALTH CARE AGENCY: [facility] PHONE: [phone] FAX: [phone] Start of care: 24-48 hours post discharge Please note that any additional orders needs or changes will need to be obtained from this patient'sPCP: Ryne Harris MD [address] / [facility] [address] All A agencies which cover the area of patient's residence have been reviewed, either verbally or in writing, and patient/family have chosen the home health care agency noted Questions: Agency name and contact information: [facility] Patient location post discharge: Home-[place], [place] What services are requested: Registered Nurse Physical Therapy Social Work Occupational Therapy Home Health Aide Start date: 03/10/2019 Responsible MD post discharge contact info: PCP Walker standard [[id number] Custom] As directed Process Instructions: Scheduling Instructions: Comments: Please provide one standard FWW to be delivered to pt's room N525 on day of discharge. Pt requires r/t gait instability secondary to s/p surgical intervention for spinal DO with headache and left sided numbness/tingling post op. Questions: Vendor Name/Contact information: [facility] Comment - ht-5'10, wt- 246 lbs Future Appointments Date Time Provider Department Center 03/24/2019 11:00 AM Nikolas Persaud MD [address] Primary Care Provider: Ryne Harris MD [address] / [facility] [address] Discharge References/Attachments None Associated attestation - Aline Tay MD - 03/18/2019 1:46 PM EDT I saw and evaluated the patient with the resident. I have reviewed the medical records and the patient's history during the visit and I agree with the details as written. My physical examination confirms the findings. ?? The assessment and plan were formulated in discussion with me at the time of the visit and I agree with them as documented. Aline Tay MD documented in this encounter Discharge Instructions Discharge InstructionsJah Nazario APRN - 03/16/2019 5:36 PM EDT Outpatient Mental Health Counseling Sadie Roblero, Psychologist [place], [place] [facility] [address] [place] [address] Marysol Spivey, [facility] [address] [facility], [address] [place], [place] You may also search www.psychologytoday.com or [employer] for therapists in your area. Mindfulness-Based Stress Reduction Resources Http://www.freemindfulness.org/ Https://www.mindful.org/ [email or web address]/ Patient InstructionsMichele Herman MD - 03/18/2019 10:23 AM EDT You were admitted to the neurology service at [facility]. Your diagnosis: headaches, hypertension Medication Changes: New medications: amlodipine 10 mg daily, lisinopril 10 mg daily Medications for headaches: - Take hydroxyzine 25 mg, naproxen 500 mg as needed for moderate to severe headaches - Limit use to two doses per week to limit any GI side effects, rebound DO NOT TAKE any sumatriptan, other triptan type medications given your cerebral aneurysms Patient Instructions: ??? Check your blood pressure daily with a home blood pressure cuff, call your PCP if the systolic blood pressure is running greater than 140 ??? Call your doctor or seek medical attention if you have ??? weakness or numbness in your face or one of your limbs or difficulty speaking ??? loss of vision ??? seizures or loss of consciousness ??? Diet: we recommend a heart healthy diet: low fat, low cholesterol, low concentrated sweets. ??? Activity Restrictions: Continue to work with PT and OT ??? Driving Restrictions: No new driving restrictions ??? Home oxygen therapy: none needed ??? Anticoagulation Follow-up and Instructions: none FOLLOWUP APPOINTMENT: You will have an outpatient followup appointment in the neurology clinic at [facility]. If not already listed in this document, we will contact you to schedule this appointment. -- If 1 week passes by after you are discharged and you still do not have an appointment, please call [phone]. You have a follow up with your PCP Dr. Harris on Friday, March 22, 2019 at 8:55am. The office numberis [phone] You will be called to schedule an appointment with Dr. Dejon Dey in neurology. Call our office if you do not hear in 2 weeks. Future Appointments and Orders Future Appointments and Orders Future Appointments Provider Department Dept Phone 03/24/2019 11:00 AM Nikolas Persaud MD Neurosurgery at [place] Arrive at: Sales And Marketing Professional Area [phone] Future Orders Complete By Expires Referral to Home Health - at DISCHARGE [[id number] CPT(R)] As directed Process Instructions: Scheduling Instructions: Comments: DOCUMENTATION FOR VNA SERVICES (INCLUDING THOSE PATIENTS WITH MEDICARE COVERAGE REQUIRING HOME VNA SERVICES AND/OR HOSPICE SERVICES) PATIENT'S LOCATION: Jaswant Nice [address] [facility] [phone] (home) Cell: Telephone Information: Candlemaker's Name: Jaswant-pt and family In discussion with the attending physician, it is certified that this patient is under their care and that they, or a Nurse Practitioner,Clinical Nurse specialist or Physician High School Art Teacher who is working directly with them, had a face to face encounter that meets the physician face to face encounter requirements with this patient on03/17 (Please provide d/c date) The encounter with the patient was in whole, or in part, for the following medical condition, which is the primary reason for home health care services: s/p surgical intervention for spinal D.O. With headache and L sided numbness/tingling. In discussion with the provider, it is certified that, based on their findings, the following services are medically necessary for home health services. To provide the following care/treatments with the clinical findings supporting the need for servicesas follows: HOME CARE ORDERS: RN ORDERS:Assess wound or incision, vital signs, cardiopulmonary status, nutrition, hydration, elimination, meds effectiveness and management; reinforce education re health issues ROD AND TUBE STRAIGHTENER:For assistance with bathing dressing and grooming PT ORDERS: Continue rehab for endurance, gait stability and strength with mobility and transfers. Home safety evaluation. Home exercise program if appropriate. OT: assess and continue rehab for managing ADL's. RECREATION ATTENDANT:For emotional support and community case management HOME HEALTH CARE AGENCY: [facility] PHONE: [phone] FAX: [phone] Start of care: 24-48 hours post discharge Please note that any additional orders needs or changes will need to be obtained from this patient'sPCP: Ryne Harris MD [address] / [facility] [address] All VNA agencies which cover the area of patient's residence have been reviewed, either verbally or in writing, and patient/family have chosen the home health care agency noted Questions: Agency name and contact information: [facility] Patient location post discharge: Home-[place], [place] What services are requested: Registered Nurse Physical Therapy Social Work Occupational Therapy Home Health Aide Start date: 03/10/2019 Responsible MD post discharge contact info: PCP Walker standard [[id number] Custom] As directed Process Instructions: Scheduling Instructions: Comments: Please provide one standard FWW to be delivered to pt's room N525 on day of discharge. Pt requires r/t gait instability secondary to s/p surgical intervention for spinal DO with headache and left sided numbness/tingling post op. Questions: Vendor Name/Contact information: [facility] [place] Comment - ht-5'10, wt- 246 lbs documented in this encounter Medications at Time [...] each 0 03/18 Supply Misc - one naproxen (NAPROSYN) 500 Take 1 tablet by 60 tablet 3 201803/26/2019 mg Tablet mouth 2 times daily as needed (limit use to two times per week). documented as of this encounter Progress Notes Shaniqua Rodriguez RN - 03/18/2019 12:35 PM EDT Patient discharged with family by personal vehicle. All discharge instructions were explained thoroughly to the patient and family. Instruction discharge summary and after visit summary were given to the patient. Patient was escorted in a wheelchair by staff to the [facility]. Walker delivered by [facility] directly to patient before he left the hospital. Dejon Dye MD - 03/18/2019 7:10 AM EDT Neurology Progress Note Patient Name: Jaswant Nice Admit Date: 03/13/2019 Primary Attending: Aline Tay MD Patient ID: Jaswant Nice is a 43 y.o. left handed male with a PMH of migraines (as a teenager), s/p lumbar fusion(L5-S1),who presents as a transfer from [facility] due to concern of new onset severe headache and left sided weakness/numbness. Interval History: - No acute events overnight, vital signs stable, afebrile - Neurologic exam stable -No PRNS overnight since adding lisinopril -Has under controlled with breathing exercises Medications: Scheduled Meds: ??? lisinopril 10 mg Oral Daily ??? amLODIPine 10 mg Oral Daily ??? methyl salicylate-menthol 1 each Topical (Top) TID ??? melatonin 6 mg Oral Nightly ??? acetaminophen 650 mg Oral Q6H ??? hydrOXYzine 25 mg Oral TID ??? sodium chloride 0.9 % 5 mL Intravenous BID ??? senna-docusate 2 tablet Oral BID ??? polyethylene glycol (MIRALAX)oral powder 17 g Oral Daily ??? enoxaparin 40 mg Subcutaneous Nightly Continuous Infusions: PRN Meds:.hydrALAZINE, calcium carbonate, naproxen, ondansetron, sodium chloride 0.9 %, lidocaine, magnesium hydroxide, bisacodyl, labetalol, enalaprilat Physical Exam: Vitals: Temp: [36.5 ??C (97.7 ??F)-36.9 ??C (98.4 ??F)] Heart Rate: [62-89] Resp: [14-24] BP: (105-193)/(51-123) SpO2: [94 %-100 %] Heart Rate from SpO2: [62 bpm-78 bpm] Gen: Patient of apparent stated age, well nourished, well developed, awake, alert, NAD Neck: Supple, no meningismus CV: + S1, S2, RRR, no murmur Resp: CTA B/L Abd: +normoactive bowel sounds, soft, nontender, nondistended Ext: No edema. No bony deformity Neuro Exam: MS: Awake, alert, clear language, no dysarthria, follows commands CN: PERRL, EOMI No facial asymmetry Hearing intact to voice Palate elevates symmetrically, tongue protrudes midline SCM and trap strength intact Motor: Normal bulk and tone UE: 5/5 R, 5/5 L Arm abduction at shoulder 5/5 R, 5/5 L Elbow extension 5/5 R, 5/5 L Elbow flexion 5/5 R, 5/5 L Change Agent LE: 5/5 R, 5/5 L Hip flexion 5/5 R, 5/5 L Knee extension 5/5 R, 5/5 L Knee flexion 5/5 R, 5/5 L Foot dorsiflexion 5/5 R, 5/5 L Foot plantar flexion Sensation: Intact to light touch throughout Reflexes: Did not assess Coordination: Finger to nose intact, no dysmetria No tremor Gait: did not assess Labs: Recent Results (from the past 24 hour(s)) U24 Hrs and Volume Result Value Ref Range Hours Collected 24 hour(s) Urine TV (ml) 2,750 mL Diagnostic Tests and Imaging: Head CT w/out: 8:22 AM, [facility], per H&P negative CTA head and neck: Right Acomm 5 mm aneurysm Right vert 8 mm fusiform aneurysm No stenosis or occlusion CSF: 1 cell, 0 RBC, 67 glucose, 33 protein Assessment / Recommendations: Jaswant Nice is a 43 y.o. left handed male with a PMH of migraines (as a teenager), s/p lumbar fusion(L5-S1),who presents as a transfer from [facility] due to concern of new onset severe headache and left sided weakness/numbness. His headache has improved currently it is a 3-4/10 and his symptoms have also r esolved except some continued left sided dysesthesias . His NIHSS is 0. Initial concern was for SAH secondary to his aneurysms, however an LP was performed and was negative for RBC and xanthochromia. Initial differential included: Stroke, seizure, TIA, complex migraine vs hemiplegic migraine. Patient could not have MRI done due to spinal stimulator but repeat CT head was negative. 30 minute spot EEG was normal. Patient known to be severely hypertensive during bouts of extreme headache. It is difficult to determine if his EGAN is causing the increased blood pressure or vice versa. In addition patient does seem to have several life stressors that are likely contributing to his worsening EGAN's. At this point his blood pressure spike are correlating with worsening EGAN.s With his presentation of blood pressure spikes , diaphoresis and severe headache It is worth ruling out pheochromocytoma at this time and 24hr urine collection is in process. He does report a HX of Aspirin allergy, but does use NSAIDS at home so we have low suspicpion forToradol allergy at this time but will hold it for now. Required one dose of PRN BP meds yesterday. Now well controlled with amlodipine and lisinopril. Has under better control with breathing exercises and meditation. Hormone studies still pending, but will be followed up as an outpatient. Patient medically ready fordischarge today. ?? #Hypertensive Urgency #Headache of unclear etiology #Transient episode of left sided weakness/numbness -treat SBP >160 with prn labetalol, enalaprilat -amlodipine 10mg QD - Lisinopril 10mg Daily -Serum metanephrines and catacholamines and 24hr urine - 8AM cortisol lvl #intracranial aneurysms -Scheduled out patient follow up with neurosurgery for 03/24 Macrocytic anemia -folate, b12, TSH normal, defer further workup for PCP ?? # Prophylaxis -Lovenox 40mg SC daily -RBOs -SCDs ?? # Supportive care -Regular diet -Tylenol PRN -Up with assistance ?? # FULL code Decision Maker: Qian Nagy Dejon Dey MD Neurology Resident Vascular Neurology [id number] Associated attestation - Aline Tay MD - 03/19/2019 3:00 PM EDT I saw and evaluated the patient with the resident. I have reviewed the medical records and the patient's history during the visit and I agree with the details as written. My physical examination confirms the findings. ?? The assessment and plan were formulated in discussion with me at the time of the visit and I agree with them as documented. MD Tiburcio Garrison Kyrillos R, MD - 03/17/2019 7:09 AM EDT Neurology Progress Note Patient Name: Jaswant Nice Admit Date: 03/13/2019 Primary Attending: Aline Tay MD Patient ID: Jaswant Nice is a 43 y.o. left handed male with a PMH of migraines (as a teenager), s/p lumbar fusion(L5-S1),who presents as a transfer from [facility] due to concern of new onset severe headache and left sided weakness/numbness. Interval History: -Urine finished collection -Amlodipine 10mg started -2 doses PRN labetalol yesterday -given exercises for Panic attack Medications: Scheduled Meds: ??? amLODIPine 10 mg Oral Daily ??? methyl salicylate-menthol 1 each Topical (Top) TID ??? melatonin 6 mg Oral Nightly ??? acetaminophen 650 mg Oral Q6H ??? hydrOXYzine 25 mg Oral TID ??? sodium chloride 0.9 % 5 mL Intravenous BID ??? senna-docusate 2 tablet Oral BID ??? polyethylene glycol (MIRALAX)oral powder 17 g Oral Daily ??? enoxaparin 40 mg Subcutaneous Nightly Continuous Infusions: PRN Meds:.calcium carbonate, naproxen, ondansetron, sodium chloride 0.9 %, lidocaine, magnesium hydroxide, bisacodyl, labetalol, enalaprilat Physical Exam: Vitals: Temp: [35.8 ??C (96.4 ??F)-37.5 ??C (99.5 ??F)] Heart Rate: [59-83] Resp: [13-26] BP: (122-180)/(65-125) SpO2: [96 %-100 %] Heart Rate from SpO2: [58 bpm-79 bpm] Gen: Patient of apparent stated age, well nourished, well developed, awake, alert, NAD Neck: Supple, no meningismus CV: + S1, S2, RRR, no murmur Resp: CTA B/L Abd: +normoactive bowel sounds, soft, nontender, nondistended Ext: No edema. No bony deformity Neuro Exam: MS: Awake, alert, clear language, no dysarthria, follows commands CN: PERRL, EOMI No facial asymmetry Hearing intact to voice Palate elevates symmetrically, tongue protrudes midline SCM and trap strength intact Motor: Normal bulk and tone UE: 5/5 R, 5/5 L Arm abduction at shoulder 5/5 R, 5/5 L Elbow extension 5/5 R, 5/5 L Elbow flexion 5/5 R, 5/5 L Change Agent LE: 5/5 R, 5/5 L Hip flexion 5/5 R, 5/5 L Knee extension 5/5 R, 5/5 L Knee flexion 5/5 R, 5/5 L Foot dorsiflexion 5/5 R, 5/5 L Foot plantar flexion Sensation: Intact to light touch throughout Reflexes: Did not assess Coordination: Finger to nose intact, no dysmetria No tremor Gait: did not assess Labs: Recent Results (from the past 24 hour(s)) Cortisol Result Value Ref Range Cortisol 6.2 mcg/dL Diagnostic Tests and Imaging: Head CT w/out: 8:22 AM, [facility], per H&P negative CTA head and neck: Right Acomm 5 mm aneurysm Right vert 8 mm fusiform aneurysm No stenosis or occlusion CSF: 1 cell, 0 RBC, 67 glucose, 33 protein Assessment / Recommendations: Jaswant Nice is a 43 y.o. left handed male with a PMH of migraines (as a teenager), s/p lumbar fusion(L5-S1),who presents as a transfer from [facility] due to concern of new onset severe headache and left sided weakness/numbness. His headache has improved currently it is a 3-4/10 and his symptoms have also r esolved except some continued left sided dysesthesias . His NIHSS is 0. Initial concern was for SAH secondary to his aneurysms, however an LP was performed and was negative for RBC and xanthochromia. Initial differential included: Stroke, seizure, TIA, complex migraine vs hemiplegic migraine. Patient could not have MRI done due to spinal stimulator but repeat CT head was negative. 30 minute spot EEG was normal. Patient known to be severely hypertensive during bouts of extreme headache. It is difficult to determine if his EGAN is causing the increased blood pressure or vice versa. In addition patient does seem to have several life stressors that are likely contributing to his worsening EGAN's. At this point his blood pressure spike are correlating with worsening EGAN.s With his presentation of blood pressure spikes , diaphoresis and severe headache It is worth ruling out pheochromocytoma at this time and 24hr urine collection is in process. BP under better control, should be ready for discharge this afternoon if BP continues to remain stable He does report a HX of Aspirin allergy, but does use NSAIDS at home so we have low [id number] forToradol allergy at this time but will hold it for now. ?? #Hypertensive Urgency #Headache of unclear etiology #Transient episode of left sided weakness/numbness -transfered to NSCU for closer monitoring -treat SBP >160 with prn labetalol, enalaprilat -Increase home amlodipine to 10mg QD -Serum metanephrines and catacholamines and 24hr urine - 8AM cortisol lvl #intracranial aneurysms -Scheduled out patient follow up with neurosurgery for 03/24 Macrocytic anemia -folate, b12, TSH normal, defer further workup for PCP ?? # Prophylaxis -Lovenox 40mg SC daily -RBOs -SCDs ?? # Supportive care -Regular diet -Tylenol PRN -Up with assistance ?? # FULL code Decision Maker: Qian Nagy Dejon Dey MD Neurology Resident Vascular Neurology [id number] Associated attestation - Aline Tay MD - 03/17/2019 4:31 PM EDT I saw and evaluated the patient with the resident. I have reviewed the medical records and the patient's history during the visit and I agree with the details as written. My physical examination confirms the findings. ?? The assessment and plan were formulated in discussion with me at the time of the visit and I agree with them as documented. MD Jagdish Garrison Israel R, GRACE - 03/17/2019 5:01 AM EDT OUTCOME EVALUATION NOTE: OUTCOME SUMMARY: A&Ox4 able to make needs known. Eyes PERRLA. Displays photo sensitivity while checking eyes. Looked at scanner while scanning ID band and got nauseous. Decline Zofran. C/o EGAN generalized x2 given Naproxen 500 mg and scheduled Tylenol 650 mg respectively. Anxious. Was startled awake when name was called. Deescalated verbally. Will continue to monitor and with POC. 0650 while rounding and assessment, pt confirmed decreased sensation LLE less than RLE. PLAN MOVING FORWARD: -treat SBP >160 with prn labetalol, enalaprilat -Increase home amlodipine to 10mg QD -Serum metanephrines and catacholamines and 24hr urine - 8AM cortisol lvl - practice 4-7-8 Breathing technique to head off potential panic episodes. -continue utilizing Aromatherapy for relaxation. -psychotherapy referral Outpatient counseling resources were placed in discharge instructions. INDIVIDUALIZED FALL PREVENTION INTERVENTIONS: Patient-specific fall risk factors per assessment: no deficits noted Assistance: SBA, Supervision: Independent Surveillance: Bed locked in low position, call barney within reach, purposeful hourly rounding, clutter free environment, bed/chair alarm on, family at bedside Patient-specific fall prevention interventions for sensory deficits provided: N/A CPG GOAL OUTCOME EVALUATION: Continue care plan as documented. Dejon Dey MD - 03/16/2019 7:15 AM EDT Neurology Progress Note Patient Name: Jaswant Nice Admit Date: 03/13/2019 Primary Attending: Aline Tay MD Patient ID: Jaswant Nice is a 43 y.o. left handed male with a PMH of migraines (as a teenager), s/p lumbar fusion(L5-S1),who presents as a transfer from [facility] due to concern of new onset severe headache and left sided weakness/numbness. Interval History: -NS will see as outpatient in 1 week for aneursyms -Urine collection started for pheo workup - No PRN BP meds overnight -TSH, free t4, b12, folate Normal -serum meta and catecholamine collected? Medications: Scheduled Meds: ??? methyl salicylate-menthol 1 each Topical (Top) TID ??? melatonin 6 mg Oral Nightly ??? acetaminophen 650 mg Oral Q6H ??? hydrOXYzine 25 mg Oral TID ??? sodium chloride 0.9 % 5 mL Intravenous BID ??? senna-docusate 2 tablet Oral BID ??? polyethylene glycol (MIRALAX)oral powder 17 g Oral Daily ??? enoxaparin 40 mg Subcutaneous Nightly Continuous Infusions: ??? sodium chloride 0.9% 1,000 mL (03/15/19 1625) PRN Meds:.calcium carbonate, naproxen, ondansetron, sodium chloride 0.9 %, lidocaine, magnesium hydroxide, bisacodyl, labetalol, enalaprilat Physical Exam: Vitals: Temp: [35.9 ??C (96.6 ??F)-36.8 ??C (98.2 ??F)] Heart Rate: [61-85] Resp: [14-24] BP: (122-192)/(57-110) SpO2: [92 %-100 %] Heart Rate from SpO2: [61 bpm-82 bpm] Gen: Patient of apparent stated age, well nourished, well developed, awake, alert, NAD Neck: Supple, no meningismus CV: + S1, S2, RRR, no murmur Resp: CTA B/L Abd: +normoactive bowel sounds, soft, nontender, nondistended Ext: No edema. No bony deformity Neuro Exam: MS: Awake, alert, clear language, no dysarthria, follows commands CN: PERRL, EOMI No facial asymmetry Hearing intact to voice Palate elevates symmetrically, tongue protrudes midline SCM and trap strength intact Motor: Normal bulk and tone UE: 5/5 R, 5/5 L Arm abduction at shoulder 5/5 R, 5/5 L Elbow extension 5/5 R, 5/5 L Elbow flexion 5/5 R, 5/5 L Change Agent LE: 5/5 R, 5/5 L Hip flexion 5/5 R, 5/5 L Knee extension 5/5 R, 5/5 L Knee flexion 5/5 R, 5/5 L Foot dorsiflexion 5/5 R, 5/5 L Foot plantar flexion Sensation: Intact to light touch throughout Reflexes: Did not assess Coordination: Finger to nose intact, no dysmetria No tremor Gait: did not assess Labs: Recent Results (from the past 24 hour(s)) Gold Tube HOLD Result Value Ref Range Gold Hold Sample in lab. Green Tube HOLD Result Value Ref Range Green Hold Sample in lab. T4, free Result Value Ref Range Free T4 1.09 0.93 - 1.70 ng/dL Comprehensive metabolic panel (non-fasting) Result Value Ref Range Glucose Lvl 136 65 - 199 mg/dL BUN 11 10 - 20 mg/dL Creatinine 0.77 (L) 0.80 - 1.50 mg/dL Sodium 141 135 - 145 mmol/L Potassium 3.5 3.5 - 5.0 mmol/L Chloride 106 98 - 107 mmol/L CO2 25 22 - 31 mmol/L Anion Gap 10 5 - 15 mmol/L Calcium 8.6 8.5 - 10.5 mg/dL Total Protein 6.2 6.1 - 8.0 gm/dL Albumin 3.7 3.2 - 5.2 gm/dL AST 22 0 - 39 unit/L ALT 43 0 - 55 unit/L Alk Phos 54 40 - 120 unit/L Total Bilirubin 0.2 0.2 - 1.3 mg/dL eGFR 112 >=60 mL/min/1.73 m?? eGFR 130 >=60 mL/min/1.73 m?? Vitamin B12 Result Value Ref Range Vitamin B-12 1,045 232 - 1,245 pg/mL Folate, serum Result Value Ref Range Folate Lvl 11.5 4.8 - 24.2 ng/mL Diagnostic Tests and Imaging: Head CT w/out: 8:22 AM, [facility], per H&P negative CTA head and neck: Right Acomm 5 mm aneurysm Right vert 8 mm fusiform aneurysm No stenosis or occlusion CSF: 1 cell, 0 RBC, 67 glucose, 33 protein Assessment / Recommendations: Jaswant Nice is a 43 y.o. left handed male with a PMH of migraines (as a teenager), s/p lumbar fusion(L5-S1),who presents as a transfer from [facility] due to concern of new onset severe headache and left sided weakness/numbness. His headache has improved currently it is a 3-4/10 and his symptoms have also r esolved except some continued left sided dysesthesias . His NIHSS is 0. Initial concern was for SAH secondary to his aneurysms, however an LP was performed and was negative for RBC and xanthochromia. Initial differential included: Stroke, seizure, TIA, complex migraine vs hemiplegic migraine. Patient could not have MRI done due to spinal stimulator but repeat CT head was negative. 30 minute spot EEG was normal. Patient known to be severely hypertensive during bouts of extreme headache. It is difficult to determine if his EGAN is causing the increased blood pressure or vice versa. In addition patient does seem to have several life stressors that are likely contributing to his worsening EGAN's. At this point his blood pressure spike are correlating with worsening EGAN.s With his presentation of blood pressure spikes , diaphoresis and severe headache It is worth ruling out pheochromocytoma at this time and 24hr urine collection is in process. We will tighten his blood pressure parameters and treat for SBP<160 and keep him NSCU status for now for frequent vitals monitoring. He does report a HX of Aspirin allergy, but does use NSAIDS at home so we have low [id number] forToradol allergy at this time but will hold it for now. ?? #Hypertensive Urgency #Headache of unclear etiology #Transient episode of left sided weakness/numbness -transfered to NSCU for closer monitoring -treat SBP >160 with prn labetalol, enalaprilat -Increase home amlodipine to 10mg QD -Serum metanephrines and catacholamines and 24hr urine - 8AM cortisol lvl #intracranial aneurysms -Scheduled out patient follow up with neurosurgery for 03/24 Macrocytic anemia -folate, b12, TSH normal, defer further workup for PCP ?? # Prophylaxis -Lovenox 40mg SC daily -RBOs -SCDs ?? # Supportive care -Regular diet -Tylenol PRN -Up with assistance ?? # FULL code Decision Maker: Qian Nagy Dejon Dey MD Neurology Resident Vascular Neurology [id number] Associated attestation - Aline Tay MD - 03/16/2019 2:47 PM EDT I saw and evaluated the patient with the resident. I have reviewed the medical records and the patient's history during the visit and I agree with the details as written. My physical examination confirms the findings. ?? The assessment and plan were formulated in discussion with me at the time of the visit and I agree with them as documented. MD Austen Garrison Dominique, PT - 03/15/2019 12:52 PM EDT Physical Therapy Note: PT order received, chart reviewed. Pt presented with eyes closed in bed, a wash cloth over his head with family at bedside. Pt reported significant headache and SO requested evaluation be rescheduled. Plan to continue to monitor Pt and perform PT evaluation as Pt tolerates and schedule permits. Thank you for the consult! Deedee Eckert DPT, NCS Pager #[phone] Inpatient Rehabilitation Services James Aiken RN - 03/15/2019 10:13 AM EDT Patient woke up with difficulty breathing at 0948 patient stated he felt as though a marble was stuck in his throat, LS was paged at 0950, benadryl was given for suspicion of anaphylaxis, as well as labetalol for his heart rate. Maria Isabel Vásquez OT - 03/15/2019 10:10 AM EDT Occupational Therapy Note: Order received and chart reviewed. Attempted to see Pt for OT evaluation. Pt presented with eyes closed in bed with SO visiting. Pt reported significant headache and SO requested evaluation be rescheduled. Plan to continue to monitor Pt and perform OT evaluation as Pt tolerates and schedule permits. Maria Isabel Vásquez MS, OTR/L Occupational Therapist Pager: [phone] Inpatient Rehabilitation Services Dejon Dey MD - 03/15/2019 7:14 AM EDT Neurology Progress Note Patient Name: Jaswant Nice Admit Date: 03/13/2019 Primary Attending: Mikaela Plunkett MD Patient ID: Jaswant Niec is a 43 y.o. left handed male with a PMH of migraines (as a teenager), s/p lumbar fusion(L5-S1),who presents as a transfer from [facility] due to concern of new onset severe headache and left sided weakness/numbness. Interval History: -scheduled toradol, tylenol, atarax -repeat head CT negative -responded well to EGAN management overnight -until this morning woke up with severe EGAN (noted to be HTN in the 180's just 10 minutes prior and received 10mg of labetalol), acutely began complaining of chest pain shortness of breath and trouble swallowing, no desaturation or shortness of breath. Not tachycardic but was hypertensive. Rapid airwaycalled. Patient was put on high flow. Did not need intubation. -On my arrival patient had improved significantly, he was diffusely diaphoretic and did have a severe left sided EGAN again. -25mg IV benadryl administered X2 as working diagnosis was panic vs allergic reaction Medications: Scheduled Meds: ??? ketorolac 30 mg Intravenous Q6H ??? acetaminophen 650 mg Oral Q6H ??? hydrOXYzine 25 mg Oral TID ??? bolus IV fluid Intravenous Once ??? sodium chloride 0.9 % 5 mL Intravenous BID ??? senna-docusate 2 tablet Oral BID ??? polyethylene glycol (MIRALAX)oral powder 17 g Oral Daily ??? enoxaparin 40 mg Subcutaneous Nightly Continuous Infusions: ??? sodium chloride 0.9% 1,000 mL (03/15/19 0544) PRN Meds:.ondansetron, sodium chloride 0.9 %, lidocaine, magnesium hydroxide, bisacodyl, labetalol, enalaprilat Physical Exam: Vitals: Temp: [36.6 ??C (97.9 ??F)-37 ??C (98.6 ??F)] Heart Rate: [58-96] Resp: [16-18] BP: (128-187)/(63-126) SpO2: [92 %-99 %] Heart Rate from SpO2: [72 bpm-78 bpm] Gen: Patient of apparent stated age, well nourished, well developed, awake, alert, NAD Neck: Supple, no meningismus CV: + S1, S2, RRR, no murmur Resp: CTA B/L Abd: +normoactive bowel sounds, soft, nontender, nondistended Ext: No edema. No bony deformity Neuro Exam: MS: Awake, alert, clear language, no dysarthria, follows commands CN: PERRL, EOMI No facial asymmetry Hearing intact to voice Palate elevates symmetrically, tongue protrudes midline SCM and trap strength intact Motor: Normal bulk and tone UE: 5/5 R, 5/5 L Arm abduction at shoulder 5/5 R, 5/5 L Elbow extension 5/5 R, 5/5 L Elbow flexion 5/5 R, 5/5 L Change Agent LE: 5/5 R, 5/5 L Hip flexion 5/5 R, 5/5 L Knee extension 5/5 R, 5/5 L Knee flexion 5/5 R, 5/5 L Foot dorsiflexion 5/5 R, 5/5 L Foot plantar flexion Sensation: Intact to light touch throughout Reflexes: Did not assess Coordination: Finger to nose intact, no dysmetria No tremor Gait: did not assess Labs: Recent Results (from the past 24 hour(s)) Troponin Result Value Ref Range Troponin-T <0.01 0.00 - 0.00 ng/mL Basic Metabolic Panel (non-fasting) Result Value Ref Range Glucose Lvl 130 65 - 199 mg/dL BUN 11 10 - 20 mg/dL Creatinine 0.85 0.80 - 1.50 mg/dL Sodium 143 135 - 145 mmol/L Potassium 3.8 3.5 - 5.0 mmol/L Chloride 108 (H) 98 - 107 mmol/L CO2 25 22 - 31 mmol/L Anion Gap 10 5 - 15 mmol/L Calcium 8.2 (L) 8.5 - 10.5 mg/dL eGFR 107 >=60 mL/min/1.73 m?? eGFR 125 >=60 mL/min/1.73 m?? Magnesium Result Value Ref Range Magnesium 0.85 0.69 - 1.07 mmol/L Phosphorus Result Value Ref Range Phosphorus 3.7 2.5 - 4.5 mg/dL Hepatic Function Panel Result Value Ref Range Total Protein 6.2 6.1 - 8.0 gm/dL Albumin 3.9 3.2 - 5.2 gm/dL AST 19 0 - 39 unit/L ALT 42 0 - 55 unit/L Alk Phos 55 40 - 120 unit/L Total Bilirubin 0.2 0.2 - 1.3 mg/dL Bili, Direct 0.1 0.0 - 0.3 mg/dL Troponin Result Value Ref Range Troponin-T <0.01 0.00 - 0.00 ng/mL Hemogram Result Value Ref Range WBC 7.4 4.0 - 9.5 x10(3)/mcL RBC 4.09 (L) 4.58 - 5.54 x10(6)/mcL Hemoglobin 13.6 (L) 13.7 - 16.5 gm/dL Hematocrit 39.1 (L) 40.5 - 48.5 % MCV 95.6 (H) 82.9 - 93.1 fL MCH 33.3 (H) 27.5 - 32.1 pg MCHC 34.8 32.0 - 35.7 gm/dL Platelets 195 145 - 357 x10(3)/mcL RDWSD 41.4 36.0 - 45.0 fL RDWCV 11.9 11.4 - 13.8 % MPV 9.4 7.6 - 12.9 fL nRBC % Auto 0.0 % nRBC Abs Auto 0.000 0.000 - 0.000 x10(3)/mcL Differential, Automated Result Value Ref Range Neutrophils % 50.7 % Neutr Abs (ANC) 3.77 1.70 - 6.10 x10(3)/mcL Lymphocytes % 38.3 % Lymphocytes Abs 2.8 0.9 - 3.2 x10(3)/mcL Monocytes % 8.0 % Monocyte Abs 0.6 0.3 - 0.9 x10(3)/mcL Eosinophils % 2.3 % Eosinophils Abs 0.2 0.0 - 0.4 x10(3)/mcL Basophils % 0.4 % Basophils Abs 0.0 0.0 - 0.1 x10(3)/mcL Immature Gran % 0.30 % Hedy Gran Abs 0.02 0.00 - 0.04 x10(3)/mcL Diagnostic Tests and Imaging: Head CT w/out: 8:22 AM, [facility], per H&P negative CTA head and neck: Right Acomm 5 mm aneurysm Right vert 8 mm fusiform aneurysm No stenosis or occlusion CSF: 1 cell, 0 RBC, 67 glucose, 33 protein Assessment / Recommendations: Jaswant Nice is a 43 y.o. left handed male with a PMH of migraines (as a teenager), s/p lumbar fusion(L5-S1),who presents as a transfer from [facility] due to concern of new onset severe headache and left sided weakness/numbness. His headache has improved currently it is a 3-4/10 and his symptoms have also r esolved except some continued left sided dysesthesias . His NIHSS is 0. Initial concern was for SAH secondary to his aneurysms, however an LP was performed and was negative for RBC and xanthochromia. Initial differential included: Stroke, seizure, TIA, complex migraine vs hemiplegic migraine. Patient could not have MRI done due to spinal stimulator but repeat CT head was negative. 30 minute spot EEG was normal. Patient known to be severely hypertensive during bouts of extreme headache. It is difficult to determine if his EGAN is causing the increased blood pressure or vice versa. In addition patient does seem to have several life stressors that are likely contributing to his worsening EGAN's. With his presentation of blood pressure spikes , diaphoresis and severe headache It is worth ruling out pheochromocytoma at this time and will order the appropriate tests. We will also consult BIT teamand social work for evaluation of home life stressors and possible interventions. He does report a HX of Aspirin allergy, but does use NSAIDS at home so we have low suspicion forToradol allergy at this time but will hold it for now. ?? #Hypertensive Urgency #Headache of unclear etiology #Transient episode of left sided weakness/numbness -transfered to NSCU for closer monitoring -treat SBP >180 with prn labetalol, enalaprilat -Increase home amlodipine to 10mg QD -Serum metanephrines and catacholamines and 24hr urine - 8AM cortisol lvl #intracranial aneurysms -will need outpatient neurosurgery follow up Macrocytic anemia -folate, b12, TSH pending ?? # Prophylaxis -Lovenox 40mg SC daily -RBOs -SCDs ?? # Supportive care -Regular diet -Tylenol PRN -Up with assistance ?? # FULL code Decision Maker: Qian Nagy Dejon Dey MD Neurology Resident Vascular Neurology [id number] Associated attestation - Aline Tay MD - 03/16/2019 2:29 PM EDT I saw and evaluated the patient with the resident. I have reviewed the medical records and the patient's history during the visit and I agree with the details as written. My physical examination confirms the findings. ?? The assessment and plan were formulated in discussion with me at the time of the visit and I agree with them as documented. MD Sae Garrison Andrea E, RN - 03/14/2019 11:20 PM EDT 2129 Pt started to complain of chest pain/pressure and feeling of presence in throat when swallowing. Dr. Carranza notified, EKG done NSR, and troponin drawn and normal. Pt also was worked up for chest pain this morning after administration for mag sulfate. Pt continued to have chest pain for approx 1 hour and then fell asleep, Notified of continued chest pain, no new orders. Verbal order from Dr. Carranza to stop fluid bolus and continue maintenance fluid. Paul Putnam RN - 03/14/2019 5:23 PM EDT Around 1399 the patient came back from [place] and upon arrival to the room he was complaining of acute onset of severe headache. The pain localized to the back left side of his head and the patient was visibly distraught and blood pressure was elevated to 187 systolic. I assessed the patient and found no overt neuro changes. I also paged Dr. Dey who placed a fluid bolus, mag and ketorolac order. came up to see the patient and talk to the family. Following the Visit the patient's BPand headache stabilized. Mikaela Plunkett MD - 03/14/2019 7:32 AM EDT Neurology Progress Note Patient Name: Jaswant Nice Admit Date: 03/13/2019 Primary Attending: Mikaela Plunkett MD Patient ID: Jaswant Nice is a 43 y.o. left handed male with a PMH of migraines (as a teenager), s/p lumbar fusion(L5-S1),who presents as a transfer from [facility] due to concern of new onset severe headache and left sided weakness/numbness. Interval History: -admitted to neurology -LP attempted at bedside, required IR LP -CSF negative for RBC -30 min EEG performed (in the setting of Ativan for LP) -overnight no acute events -this AM headache is a 3/10. No further numbness in his LUE or LLE Medications: Scheduled Meds: ??? sodium chloride 0.9 % 5 mL Intravenous BID ??? senna-docusate 2 tablet Oral BID ??? polyethylene glycol (MIRALAX)oral powder 17 g Oral Daily ??? enoxaparin 40 mg Subcutaneous Nightly ??? lidocaine 10 mL Subcutaneous Once Continuous Infusions: ??? sodium chloride 0.9% PRN Meds:.sodium chloride 0.9 %, lidocaine, magnesium hydroxide, bisacodyl, labetalol, enalaprilat, acetaminophen OR acetaminophen OR acetaminophen Physical Exam: Vitals: Temp: [36.5 ??C (97.7 ??F)-36.8 ??C (98.2 ??F)] Heart Rate: [65-68] Resp: [14-20] BP: (141-145)/(70-91) SpO2: [98 %] Heart Rate from SpO2: [64 bpm-69 bpm] Gen: Patient of apparent stated age, well nourished, well developed, awake, alert, NAD Neck: Supple, no meningismus CV: + S1, S2, RRR, no murmur Resp: CTA B/L Abd: +normoactive bowel sounds, soft, nontender, nondistended Ext: No edema. No bony deformity Neuro Exam: MS: Awake, alert, clear language, no dysarthria, follows commands CN: PERRL, EOMI No facial asymmetry Hearing intact to voice Palate elevates symmetrically, tongue protrudes midline SCM and trap strength intact Motor: Normal bulk and tone. UE: 5/5 R, 5/5 L Arm abduction at shoulder 5/5 R, 5/5 L Elbow extension 5/5 R, 5/5 L Elbow flexion 5/5 R, 5/5 L Change Agent LE: 5/5 R, 5/5 L Hip flexion 5/5 R, 5/5 L Knee extension 5/5 R, 5/5 L Knee flexion 5/5 R, 5/5 L Foot dorsiflexion 5/5 R, 5/5 L Foot plantar flexion Sensation: Intact to light touch throughout Reflexes: Did not assess Coordination: Finger to nose intact, no dysmetria No tremor Gait: did not assess Labs: Recent Results (from the past 24 hour(s)) Calcium Result Value Ref Range Calcium 8.9 8.5 - 10.5 mg/dL Magnesium Result Value Ref Range Magnesium 0.76 0.69 - 1.07 mmol/L Phosphorus Result Value Ref Range Phosphorus 3.1 2.5 - 4.5 mg/dL Hepatic Function Panel Result Value Ref Range Total Protein 6.8 6.1 - 8.0 gm/dL Albumin 4.3 3.2 - 5.2 gm/dL AST 41 (H) 0 - 39 unit/L ALT 55 0 - 55 unit/L Alk Phos 58 40 - 120 unit/L Total Bilirubin 0.9 0.2 - 1.3 mg/dL Bili, Direct 0.2 0.0 - 0.3 mg/dL Troponin Result Value Ref Range Troponin-T <0.01 0.00 - 0.00 ng/mL Hemoglobin A1c Result Value Ref Range Hemoglobin A1C 5.3 4.3 - 5.6 % Est Avg Gluc 105 mg/dL LDL Cholesterol, Direct Result Value Ref Range LDL Chol Direct 149 mg/dL HDL/Cholesterol Profile Result Value Ref Range Chol, Total 188 mg/dL HDL 37 mg/dL Chol/HDL Ratio 5.1 ratio Chol/HDL Interpretation See Note Triglyceride Result Value Ref Range Triglycerides 141 mg/dL Hemogram Result Value Ref Range WBC 7.9 4.0 - 9.5 x10(3)/mcL RBC 4.55 (L) 4.58 - 5.54 x10(6)/mcL Hemoglobin 14.4 13.7 - 16.5 gm/dL Hematocrit 42.3 40.5 - 48.5 % MCV 93.0 82.9 - 93.1 fL MCH 31.6 27.5 - 32.1 pg MCHC 34.0 32.0 - 35.7 gm/dL Platelets 236 145 - 357 x10(3)/mcL RDWSD 42.3 36.0 - 45.0 fL RDWCV 12.3 11.4 - 13.8 % MPV 9.1 7.6 - 12.9 fL nRBC % Auto 0.0 % nRBC Abs Auto 0.000 0.000 - 0.000 x10(3)/mcL Differential, Automated Result Value Ref Range Neutrophils % 62.6 % Neutr Abs (ANC) 4.94 1.70 - 6.10 x10(3)/mcL Lymphocytes % 28.6 % Lymphocytes Abs 2.2 0.9 - 3.2 x10(3)/mcL Monocytes % 7.0 % Monocyte Abs 0.6 0.3 - 0.9 x10(3)/mcL Eosinophils % 1.0 % Eosinophils Abs 0.1 0.0 - 0.4 x10(3)/mcL Basophils % 0.5 % Basophils Abs 0.0 0.0 - 0.1 x10(3)/mcL Immature Gran % 0.30 % Hedy Gran Abs 0.02 0.00 - 0.04 x10(3)/mcL BMP w/fasting Glucose Result Value Ref Range Glucose Fasting 116 (H) 65 - 99 mg/dL BUN 13 10 - 20 mg/dL Creatinine 0.90 0.80 - 1.50 mg/dL Sodium 141 135 - 145 mmol/L Potassium 3.8 3.5 - 5.0 mmol/L Chloride 104 98 - 107 mmol/L CO2 25 22 - 31 mmol/L Anion Gap 12 5 - 15 mmol/L Calcium 8.9 8.5 - 10.5 mg/dL eGFR 105 >=60 mL/min/1.73 m?? eGFR 122 >=60 mL/min/1.73 m?? Urinalysis with reflex Culture Result Value Ref Range Glucose UA Negative Negative mg/dL Protein UA 30 (A) Negative mg/dL Bilirubin UA Negative Negative mg/dL Urobilinogen UA Normal Normal mg/dL pH UA 5.0 5.0 - 8.0 Blood UA Negative Negative mg/dL Ketones UA Negative Negative mg/dL Nitrite UA Negative Negative Leukocytes UA Negative Negative mcL Appearance UA Hazy (A) Clear Spec [place] UA >1.035 (H) 1.002 - 1.030 Color UA Yellow Yellow Culture Reflexed No Urine Hold Result Value Ref Range Urine Hold Sample in lab. Urinalysis Microscopic Exam Result Value Ref Range RBC UA 1 0 - 3 /HPF WBC UA 2 0 - 3 /HPF Squam Epith UA 1 <=4 /HPF Hyaline Cast UA 2 0 - 2 /LPF CSF DESC 1 Result Value Ref Range Tube Num CSF #1 1 Color CSF #1 Colorless Colorless Appear CSF #1 Clear Clear Tot Vol CSF #1 2.8 mL CSF DESC 2 Result Value Ref Range Tube Num CSF #2 2 Color CSF #2 Colorless Colorless Appear CSF #2 Clear Clear Tot Vol CSF #2 2.5 mL CSF DESC 3 Result Value Ref Range Tube Num CSF #3 3 Color CSF #3 Colorless Colorless Appear CSF #3 Clear Clear Tot Vol CSF #3 2.1 mL CSF DESC 4 Result Value Ref Range Tube Num CSF #4 4 Color CSF #4 Colorless Colorless Appear CSF #4 Clear Clear Tot Vol CSF #4 2.7 mL CSF Cell Count Result Value Ref Range Tube # Ct CSF [address] 1 0 - 5 /mcl RBC CSF CT 0 /mcl Miscellaneous Lab request Result Value Ref Range Misc Lab Result Request received in lab. Diagnostic Tests and Imaging: Head CT w/out: 8:22 AM, [facility], per H&P negative CTA head and neck: Right Acomm 5 mm aneurysm Right vert 8 mm fusiform aneurysm No stenosis or occlusion CSF: 1 cell, 0 RBC, 67 glucose, 33 protein Assessment / Recommendations: Jaswant Nice is a 43 y.o. left handed male with a PMH of migraines (as a teenager), s/p lumbar fusion(L5-S1),who presents as a transfer from [facility] due to concern of new onset severe headache and left sided weakness/numbness. His headache has improved currently it is a 3-4/10 and his symptoms have also r esolved except some continued left sided dysesthesias . His NIHSS is 0. The likely etiology of his symptoms are unclear. Initial concern was for SAH secondary to his aneurysms, however an LP was performed and was negative for RBC. At this time differential includes. TIA vs. Hemiplegic migraine vs. Stroke vs. Seizure. ?? #Transient episode of left sided weakness/numbness -Neuro check & vitals Q4hrs / Q4hrs -Permissive HTN, treat SBP >220 with prn labetalol, enalaprilat -NO aspirin due to allergy -Check CBC, BMP, LFT, lipid profile, HbA1c, Mg, Phos, UA -Statin pending lipid panel and MRI -will consider TTE pending MRI -12 lead EKG -Telemetry -MRI brain wo contrast, pending if spinal cord stimulator compatible -PT/OT -LP negative for SAH -EEG 30 min, final read pending #intracranial aneurysms -will need outpatient neurosurgery follow up ?? # Prophylaxis -Lovenox 40mg SC daily -RBOs -SCDs ?? # Supportive care -Regular diet -Tylenol PRN -Up with assistance ?? # FULL code Decision Maker: GirlienQian pagan Sofia Linn MD Neurology Resident Vascular Neurology [id number] Attending Physician Attestation I saw and evaluated the patient with Dr. Linn. I have reviewed the medical records and the patient's history during the visit and I agree with the details as written. My physical examination confirmsthe findings. + Subjective sensory loss over entire left hemibody including face/scalp/torso/UE/LE. No weakness, DTR changes, CN abnormalities. CT head and CTangio at OSH reviewed. 5,,JUAN CARLOS aneurysm noted. CSF parameters are normal. No RBC's, No xanthochromia. EEG normal sleep. The assessment and plan were formulated in discussion with me at the time of the visit and I agree with them as documented. Patient clinically has evolving EGAN with photo/phonophobia, nausea, left sensory and motor sx which suggest complicated/hemiplegic migraine. There is a small JUAN CARLOS aneurysm on CTA, but CSF does not indicate sentinal bleed. We have looked up the implanted bone stimulator and this isNOT MRI compatible. Repeat CT head to eval for possible evolving ischmia ordered. If negative patient can be DC'd with migraine medication, but triptans should be avoided. [facility] of [facility] will be arranged. Mikaela Plunkett MD Estiven Tomlin RN - 03/14/2019 5:58 AM EDT Pt returning form lumbar puncture at change of shift, lumbar band aids clean and dry. Pt reporting 3/10 headache resolving to 0/10 at midnight. Left sided generalized 3/10 headache reported this morning, treated with tylenol. Neurologically intact. Pt ambulating to BR this am with nursing, slightly unsteady. +BM, +void. Plan for MRI today. Gabriela Joyner RN - 03/13/2019 3:28 PM EDT Pt admitted to room 527b as direct admit. Pt transferred self off ems stretcher with out difficulty.Pt neuro stable on assessment with 2/10 right sided headache. assessment as charted. pts girl friendGail at bedside and supportive. Pt denies and cp/n/v at this time. ambulate with out difficulty to BR to void. Admitting md at bedside . ordered as follows. Pt fitted to all monitoring . Orientated pt to room and call barney. Cont to monitor and provide support. documented in this encounter H&P Notes Mikaela Plunkett MD - 03/13/2019 9:59 AM EDT Neurology Admission History and Physical Patient name: Jaswant Nice Date of : 1975 PCP: Ryne Harris MD Onset of symptoms (if witnessed) or time of symptom discovery: approximately 5 AM, 03/13/19 Last known well: 10 PM, 03/12/19 CC: Severe headache and left sided weakness/numbness HPI: Jaswant Nice is a 43 y.o. left handed male with a PMH of migraines (as a teenager), s/p lumbar fusion(L5-S1),who presents as a transfer from [facility] due to concern of new onset severe headache and left sided weakness/numbness. Last night he was seen normal by his girlfriend at 10 PM. He woke up twice around 12:30 AM, 2 AM, 5 AM with sweats. He had diarrhea and that was when he noticed the headache, which was a 10/10. +photophobia, denies phonophobia, +nausea, no vomiting. Denies any vision changes. His girlfriend gave him an ice pack for his head, with no relief. After that the pressure was so severe, after that he does not recall any further events. His girlfriend called 911. He was face down and she noticed some trembling (no urinary incontinence, no tongue biting). There were concerns of initial LOC when he went down to the ground, but after that he was making intermittent noises and words. When EMS arrived there wassome concern that he couldn't move himself. He was transferred via EMS to [facility]. There he was lethargic, confused, and had left sided weakness/numbness. His initial BP was 192/101, his BG was 114. He had a bedside cardiac/abd US, and a CT head which were negative. 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 This resolved during his time at [facility]. At this point [facility] was called for transfer for further evaluation for migraine vs. TIA. His CBC, BMP were unremarkable. Currently his headache is a 3-4/10. When he was younger and had migraines, he did have +photophobia, +phonophobia, +nausea, +vomiting, no vision changes. He does not recall having weakness/numbness one on side of his body with his migraines. He does recall having some sort of prescription medication for his migraines as well. Current Medications: Scheduled Meds: Continuous Infusions: PRN Meds:. Past Medical & Surgical History: No past medical history on file. No past surgical history on file. Home Medications: No current facility-administered medications on file prior to encounter. Current Outpatient Medications on File Prior to Encounter Medication Sig Dispense Refill ??? hydroCODone-acetaminophen (VICODIN) 5-500 mg per tablet 1-2 Tablet(s), PO, Q12H PRN ??? senna-docusate (PERICOLACE) 8.6-50 mg per tablet 1-4 Tablet(s), PO, Twice daily ??? SUMAtriptan (IMITREX) 25 mg tablet Allergy: Allergies Allergen Reactions ??? Aspirin CIS - shortness of breath Family History: No family history on file. 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 Marital status: Not on file Spouse name: Not on file ??? Number [...] on file Tobacco Use ??? Smoking status: Not on file Substance and Sexual Activity ??? Alcohol use: Not on file ??? Drug use: Not on file ??? Sexual activity: Not on file Lifestyle ??? Physical activity: Days per week: Not on file Minutes per session: Not on file ??? Stress: Not on file Relationships ??? Social connections: Talks on phone: Not on file Gets together: Not on file Attends nondenominational service: Not on file Active member of [...] shortness of breath GI: No nausea, vomiting, +diarrhea or no constipation : No dysuria, no incontinence Neuro: See HPI Psych: No depression, +trouble sleep [x] Review of systems otherwise negative Physical Exam: Vitals: Temp: -- Heart Rate: -- Resp: -- BP: ()/() SpO2: -- Heart Rate from SpO2: -- Gen: Patient of apparent stated age, well nourished, well developed, awake, alert, NAD Neck: Supple, no meningismus CV: + S1, S2, RRR, no murmur Resp: CTA B/L Abd: +normoactive bowel sounds, soft, nontender, nondistended Ext: No edema. 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 UE: 5/5 R, 5/5 L Arm abduction at shoulder 5/5 R, 5/5 L Elbow extension 5/5 R, 5/5 L Elbow flexion 5/5 R, 5/5 L Change Agent LE: 5/5 R, 5/5 L Hip flexion 5/5 R, 5/5 L Knee extension 5/5 R, 5/5 L Knee flexion 5/5 R, 5/5 L Foot dorsiflexion 5/5 R, 5/5 L Foot plantar flexion Sensation: Decreased to light touch and pinprick on the left UE and left LE, intact to vibration in bilateral UE and decreased in the left LE. Reflexes: DTRs Slightly more brisk on the left with no spread 2+ R, 2+ L Biceps 2+ R, 2+ L Brachioradialis 2+ R, 2+ L Triceps 2+ R, 2+ L Patellar 1+ R, 1+ L Achilles tendon Toes - R down, L down Coordination: Finger to nose intact, no dysmetria Rapid alternating movements & finger tapping smooth and symmetric Heel-mims intact No tremor Gait: did not assess NIH Stroke Scale: (bold applicable choices) NIH Stroke Scale at Initial Evaluation: 1.a. Level of consciousness: 0-Alert 1-Not alert, but arousable with minimal stimulation 2-Not alert, requires repeat stimulation to attend 3-Coma 1.b. Ask patient the month and their age: 0-Answers both correctly 1-Answers one correctly 2-Both incorrect 1.c. Ask patient to open and close eyes: 0-Obeys both correctly 1-Obeys one correctly 2-Both incorrect 2. Best gaze (horizontal eye movement): 0-Normal 1-Partial gaze palsy 2-Forced deviation 3. Visual field testin-No visual field loss 1-Partial hemianopia 2-Complete hemianopia 3-Bilateral hemianopia (blind including cortical blindness) 4. Facial paresis (Ask patient to show teeth or raise eyebrows and close eyes tightly): 0-Normal symmetrical movement 1-Minor paralysis (flattened nasolabial fold, asymmetry on smiling) 2-Partial paralysis (total or near paralysis of lower face) 3-Complete paralysis of one or both sides (absence of facial movement in the upper and lower face) 5. Motor function right arm: 0-Normal (extends arm 90 degrees for 10 seconds without drift) 1-Drift 2-Some effort against gravity 3-No effort against gravity 4-No movement UT-Untestable (Joint fused or limb amputated) 5. Motor function- left arm: 0-Normal (extends arm 90 degrees for 10 seconds without drift) 1-Drift 2-Some effort against gravity 3-No effort against gravity (but baseline) 4-No movement UT-Untestable (Joint fused or limb amputated) 6. Motor function right le-Normal (extends leg 30 degrees for 5 seconds without drift) 1-Drift 2-Some effort against gravity 3-No effort against gravity 4-No movement UT-Untestable (Joint fused or limb amputated) 6. Motor function-left le-Normal (extends leg 30 degrees for 5 seconds without drift) 1-Drift 2-Some effort against gravity 3-No effort against gravity 4-No movement UT-Untestable (Joint fused or limb amputated) 7. Limb ataxia: 0-No ataxia 1-Present in one limb 2-Present in two limbs 8. Sensory (Use pinprick to test arms, legs, trunk and face compare side to side): 0-Normal 1-Mild to moderate decrease in sensation 2-Severe to total sensory loss 9. Best language (describe picture, name items, read sentences): 0-No aphasia 1-Mild to moderate aphasia 2-Severe aphasia 3-Mute 10. Dysarthria (read several words): 0-Normal articulation 1-Mild to moderate slurring of words 2-Near unintelligible or unable to speak UT-Intubated or other physical barrier 11. Extinction and inattention: 0-Normal 1-Inattention or extinction to bilateral simultaneous in one of the sensory modalities 2-Severe ariana-inattention or ariana-inattention to more than one modality TOTAL SCORE: 0 Labs: No results found for this or any previous visit (from the past 24 hour(s)). Diagnostic Tests and Imaging: Head CT w/out: 8:22 AM, [facility], per H&P negative CTA head and neck: Right Acomm 5 mm aneurysm Right vert 8 mm fusiform aneurysm No stenosis or occlusion Swallow Screen Results: PASSED (All YES responses) Time 3:45 PM Assessment and Plan: Jaswant Nice is a 43 y.o. left handed male with a PMH of migraines (as a teenager), s/p lumbar fusion(L5-S1),who presents as a transfer from [facility] due to concern of new onset severe headache and left sided weakness/numbness. His headache has improved currently it is a 3-4/10 and his symptoms have also r esolved except some continued left sided dysesthesias . His NIHSS is 0. The likely etiology of his symptoms are unclear and could be SAH secondary to aneurysm bleed vs. TIA vs. Hemiplegic migraine vs. Stroke vs. Seizure. Thrombolytics were considered and not given secondary to Rapid improvement, diagnosis unclear and out of time window . At this time he will be admitted for further evaluation and imaging. #Transient episode of left sided weakness/numbness -Admit to neurology, -Neuro check & vitals Q4hrs / Q4hrs -Permissive HTN, treat SBP >220 with prn labetalol, enalaprilat -NO aspirin due to allergy -Check CBC, BMP, LFT, lipid profile, HbA1c, Mg, Phos, UA -Statin pending lipid panel -will consider TTE pending MRI -12 lead EKG -Telemetry -MRI brain wo contrast -PT/OT -LP to rule out SAH -will consider neurosurgery consult pending CSF results -EEG 30 min -CTA, discussed with radiology # Prophylaxis -Lovenox 40mg SC daily -RBOs -SCDs # Supportive care -Regular diet -Tylenol PRN -Up with assistance # FULL code Decision Maker: Qian Nagy Discussed case with attending fitness sales consultant, Dr. Dimitrios Linn MD Neurology Resident PGY4 Vascular Neurology Pager [phone] Standard [facility] Swallow Screen: This screen is to be used to document a Swallow Screen prior to ingestion of water and /or oral medications for patients with possible stroke (Ischemic or Hemorrhagic). Exclusion Criteria: A swallow screen is not to be performed on patients who: ?? have a decreased level of consciousness. ?? are not able to follow simple commands. ?? are hypoxic, or have increasing O2 needs or may need to be intubated. ?? have a G/J tube for nutrition. ?? have a recent history of a swallowing disorder *These patients should remain NPO (HOLD MEDS) and the physician notified for further orders. Swallow Screen Using Water: None of the Exclusion Criteria as mentioned above is present? Patient is alert and sitting upright? Able to close lips and tongue is midline? Able to cough, manage oral secretions with dry voice? ONLY IF ABOVE ALL YES, Able to swallow 30 ml of water without coughing, displaying a wet voice or choking? Repeat Twice. ??? If YES to all responses, proceed with water and oral medications as well as diet as medical provider deems appropriate. Consider PRIZE JACKER consult for full evaluation and diet recommendations. ??? If NO to any of the responses, stop immediately, keep patient NPO and notify physician. Neurology Attending Documentation Please see above resident note for details of the patient history of presentation and data. I have discussed, reviewed and agree with the documented History, Physical findings, Assessment and Plan of care. I have examined the patient myself and personally reviewed all studies. I certify that the patient requires: Inpatient care status due to acute neurologic deficits to evaluate for possible stroke.The patient requires frequent neurologic monitoring. The patient is like to remain in the hospital for more than two nights. Mikaela Plunkett MD documented in this encounter Procedure Notes Bro Guevara MD - 03/13/2019 9:46 PM EDTAssociated Order(s): EEG AWAKE, ASLEEP, DROWSY [facility] Department of Neurology Inpatient EEG Report Name of the Patient: Jaswant Nice Date of : 1975 Date of Service: 03/13/2019 Referring physician: Sofia Linn M.D. BRIEF HISTORY: Jaswant Nice is a 43 y.o. year old patient with altered mental state and possible seizure. MEDICATIONS: Current Facility-Administered Medications Medication Dose Route Frequency Provider Last Rate Last Dose ??? sodium chloride 0.9 % flush 5 mL 5 mL Intravenous BID Sofia Linn MD ??? sodium chloride 0.9 % flush 5-20 mL 5-20 mL Intravenous Q1 Min PRN Sofia Linn MD ??? lidocaine (XYLOCAINE) 10 mg/mL (1 %) injection 3 mg 0.3 mL Subcutaneous Once PRN Sofia Linn MD ??? senna-docusate (PERICOLACE) 8.6-50 mg per tablet 2 tablet 2 tablet Oral BID Sofia Linn MD ??? polyethylene glycol (MIRALAX) packet 17 g 17 g Oral Daily Sofia Linn MD ??? magnesium hydroxide (Milk of Magnesia) (240 mg/mL) oral liquid 10 mL 10 mL Oral Nightly PRN Sofia Linn MD ??? bisacodyl (DULCOLAX) suppository 10 mg 10 mg Rectal Daily PRN Sofia Linn MD ??? labetalol (NORMODYNE,TRANDATE) injection 10-20 mg 10-20 mg Intravenous Q15 Min PRN Sofia Linn MD ??? enalaprilat (VASOTEC) injection 1.25 mg Intravenous Q6H PRN Sofia Linn MD ??? acetaminophen (TYLENOL) tablet 975 mg 975 mg Oral Q6H PRN Sofia Linn MD 975 mg at 03/13/19 1637 Or ??? acetaminophen (Tylenol) (32.02 mg/mL) oral liquid 975 mg 975 mg Per G Tube Q6H PRN Sofia Linn MD Or ??? acetaminophen (TYLENOL) suppository 975 mg 975 mg Rectal Q6H PRN Soifa Linn MD ??? sodium chloride 0.9% infusion 1,000 mL Intravenous Continuous Sofia Linn MD ??? enoxaparin (LOVENOX) injection 40 mg 40 mg Subcutaneous Nightly Sofia Linn MD ??? lidocaine (XYLOCAINE) 10 mg/mL (1 %) injection 100 mg 10 mL Subcutaneous Once Sofia Linn MD METHODS: A 21 channel digitized electroencephalogram was performed in the [facility] Clinical Neurophysiology [facility]. The 10/20 international system of electrode placement was used and bipolar and referential electrode montages were recorded. In addition to EEG the patient was monitored for EKG and lateral/vertical eye movements. Video was recorded during the session. The duration of the recording was 35 minutes. WOMEN NURSE'S REPORT: Performed by: SB Patient was not sleep deprived. Sleep was attained. Photic stimulation was performed. Hyperventilation was not performed. Effort was was not adequate. Movement and other artifact was not significant. Comments:Sweat Sways were throughout the recording and confirmed during clean up as the head wrap was soaked. ELECTROENCEPHALOGRAPHER'S REPORT: Background During the awake state with the eyes closed the background consisted of a medium amplitude, 10 Hz posterior reactive rhythm that attenuated appropriately with eye opening. Beta activity was distributeddiffusely with an anterior predominance. There was a normal anterior-posterior voltage gradient. With eye opening the background activity changed to a low voltage mixture of alpha, beta, and occasionaltheta range frequencies. There were no significant asymmetries of background activity noted. Sleep Stage II sleep was obtained and consisted of symmetrical sleep spindles and vertex sharp waves. Hyperventilation Hyperventilation was not performed. Photic Stimulation Photic stimulation using a step-barahona increase in photic frequency varying from 1-21 Hertz did not result in bilateral driving response. Also there is no appearance of abnormal activity. Abnormal EEG Activity Diffuse beta EKG EKG revealed normal sinus rhythm. PRIOR EEG: No previous EEG reports were available. INTERPRETATION/CLINICAL CORRELATION: This EEG is abnormal due to excess beta, likely from the sedative medication. No epileptiform discharges or clinical seizures captured. Much of the recording was spent in sleep. Jeanie Grimes M.D Epilepsy Fellow Epilepsy pager [phone] Personal pager [phone] Neurology Attending I have personally reviewed the EEG, and I agree with the details as written. The above report was formulated in discussion with me at the time of EEG reading, and I agree with it as documented. Bro Guevara [place] [address] Pager: [phone], #[phone] Email: [email or web address] [email or web address]: Ryne Harris MD Mikaela Plunkett MD - 03/13/2019 5:28 PM EDT Neurology Procedure Note Date: 03/13/2019 Patient: Jaswant Nice : 1975 Procedure: lumbar puncture (diagnostic) Indications: evaluation for SAH Risk and benefits were explained to the patient and consent was obtained. No past medical history on file. Current Facility-Administered Medications Medication Dose Route Frequency Provider Last Rate Last Dose ??? sodium chloride 0.9 % flush 5 mL 5 mL Intravenous BID Sofia Linn MD ??? sodium chloride 0.9 % flush 5-20 mL 5-20 mL Intravenous Q1 Min PRN Sofia Linn MD ??? lidocaine (XYLOCAINE) 10 mg/mL (1 %) injection 3 mg 0.3 mL Subcutaneous Once PRN Sofia Linn MD ??? senna-docusate (PERICOLACE) 8.6-50 mg per tablet 2 tablet 2 tablet Oral BID Sofia Linn MD ??? polyethylene glycol (MIRALAX) packet 17 g 17 g Oral Daily Sofia Linn MD ??? magnesium hydroxide (Milk of Magnesia) (240 mg/mL) oral liquid 10 mL 10 mL Oral Nightly PRN Sofia Linn MD ??? bisacodyl (DULCOLAX) suppository 10 mg 10 mg Rectal Daily PRN Sofia Linn MD ??? labetalol (NORMODYNE,TRANDATE) injection 10-20 mg 10-20 mg Intravenous Q15 Min PRN Sofia Linn MD ??? enalaprilat (VASOTEC) injection 1.25 mg Intravenous Q6H PRN Sofia Linn MD ??? acetaminophen (TYLENOL) tablet 975 mg 975 mg Oral Q6H PRN Sofia Linn MD 975 mg at 03/13/19 1637 Or ??? acetaminophen (Tylenol) (32.02 mg/mL) oral liquid 975 mg 975 mg Per G Tube Q6H PRN Sofia Linn MD Or ??? acetaminophen (TYLENOL) suppository 975 mg 975 mg Rectal Q6H PRN Sofia Linn MD ??? sodium chloride 0.9% infusion 1,000 mL Intravenous Continuous Sofia Linn MD ??? enoxaparin (LOVENOX) injection 40 mg 40 mg Subcutaneous Nightly Sofia Linn MD ??? lidocaine (XYLOCAINE) 10 mg/mL (1 %) injection 100 mg 10 mL Subcutaneous Once Sofia Linn MD Allergies Allergen Reactions ??? Aspirin CIS - shortness of breath Patient was positioned on his right side in a position. The skin was prepped with ChloraPrep (2% chlorhexidine solution/70% isopropyl alcohol) and draped in sterile fashion. 8 cc lidocaine were used to numb the skin and insertion site. A 20-g 3.5 Quincke spinal needle was inserted, into the space between L4 and L5. Two attempts were made with no CSF return. Patient was then placed in an upright position, One further attempt was made with no CSF return. NO spinal fluid was removed. Patient tolerated the procedure well. There were no immediate complications observed. Blood Loss <1cc Sofia Linn MD Neurology Resident PGY4 I was the attending physician supervising the resident in the above care and I was present with the resident for the bettencourt component(s) of the procedure and remained immediately available throughout the remainder. Mikaela Plunkett MD documented in this encounter Miscellaneous Notes Plan of Care - Delores Cook RN - 03/18/2019 5:32 AM EDT Problem: Patient Care Overview Goal: Plan of Care Review 03/18/19 9418 Plan of Care Review Progress progress toward functional goals as expected Coping/Psychosocial Plan Of Care Reviewed With patient OUTCOME EVALUATION NOTE: OUTCOME SUMMARY: Pt A&0x4, VSS. Pt still has some photophobia, but otherwise neurologically intact. No complaintsovernight. No PRN medications given. PLAN MOVING FORWARD: Continue to monitor INDIVIDUALIZED FALL PREVENTION INTERVENTIONS: Patient-specific fall risk factors per assessment: [current deficits]: Weak at times, somewhat improved overnight Assistance [level of assistance required for transfers and ambulation]: Standby, x1 assist Supervision [direct monitoring required during toileting and ADLs]: Standby assist Surveillance Bed in low position, bed alarm in use, call barney provided, monitor alarms activated. Patient-specific fall prevention interventions for sensory deficits provided, if applicable: [X] Yes CPG GOAL OUTCOME EVALUATION: Will continue to monitor Plan of Care - Andrew Anguiano RN - 03/17/2019 4:45 PM EDT Problem: Pain, Acute (Adult) Goal: Acceptable Pain Control/Comfort Level Patient will demonstrate the desired outcomes by discharge/transition of care. Outcome: Ongoing (Interventions Implemented as Appropriate) OUTCOME EVALUATION NOTE: OUTCOME SUMMARY: Episode of hypertension treated with IV vasotec, see MAR. Pt experienced the signs and symptoms of an anxiety attack with headache and associated numbness on the R side of the face, especially under the eye. S/O and staff encouraged him to use breathing exercises with good effect. After the course of about 30 minutes patient's blood pressure came down by approximately 30 points. See flow sheets for current vitals. Remained Ox4 througout the shift, calling appropriately. Worked with PT and only ambulated to room door with 2 assist. Ambulated to from chair with contact guard and a walker late in the afternoon and patient acknowledged an improvement in his strength and coordination. PLAN MOVING FORWARD: Mobilize, discharge planning for tomorrow INDIVIDUALIZED FALL PREVENTION INTERVENTIONS: non skid footwear, bed low and locked, lighting adjusted, call light in reach. Patient-specific fall risk factors per assessment: [current deficits]: Generalized weakness, overestimates abilities Assistance [level of assistance required for transfers and ambulation]: 2 assist Supervision [direct monitoring required during toileting and ADLs]: Hands on Surveillance [continuous indirect monitoring]: SpO2, tele, apnea Patient-specific fall prevention interventions for sensory deficits provided, if applicable: N/A CPG GOAL OUTCOME EVALUATION: Making progress toward goals Plan of Care - Maria Isabel Vásquez OT - 03/17/2019 3:20 PM EDT Occupational Therapy Treatment Note Treatment Number OT: 2 Pertinent History of Current Problem: Mr. 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 Precautions/Restrictions: fall Precautions Comments: SBP<160, up with assist Assessment: Pt seen for skilled OT interventions. Pt seen with PT with focus on functional mobility.Pt presented asleep in bed and awoke to stimulus to be agreeable to services. Pt noted with increased bed mobility today; he was able to perform without physical assistance and use of bed rails. Pt participated in ambulating requiring seated rest breaks. Pt continues with hypertension; RN aware. Pt reported feeling lightheaded during session with increased headache. Pt and SO educated on equipment for discharge planning. Recommend Pt have 24/ care and supervision upon initial transition home with home health services until deemed appropriate for outpatient services. Pt will benefit from ongoing therapeutic interventions to achieve pt's and therapy goals. Please refer to associated flowsheet data listed below for treatment session details. Staff Recommendations: Encourage OOB activity and participation in all self care tasks Anticipated Discharge Disposition: home with home health, home with assist Pager: [phone] Maria Isabel Vásquez OT 03/17/2019 Occupational Therapy Rehabilitation Department 03/17/19 1045 Rehab Evaluation Document Type therapy note (daily note) Total Evaluation Minutes, Occupational Therapy 39 (3 SC) Patient Effort good Symptoms Noted During/After Treatment increased pain;other (see comments) (lightheadedness ) General Information Patient Profile Review yes Patient/Family/Caregiver Comments/Observations It's my right leg, I am having a hard time moving it. General Observations of Patient Pt supine in bed pre and post session with all needs within reach and SO visiting. 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 Hearing Precautions/Limitations other (see comments) ([place] R ear ) Precautions/Restrictions fall Precautions Comments SBP<160, up with assist Treatment Number OT 2 Vital Signs Heart Rate 89 BP (147/86 sitting EOB, 154/121 post walk, 173/98 supine bed) SpO2 99 % O2 Device RA Pain Scale/Rating Pain Assessment Scale Numbers (Numeric Rating Pain Scale) Pain Level 5 Pain Assessment Numbers/Faces/Word Pain Body Location head Bed Mobility Assessment/Treatment Impairments (Bed Mobility) strength decreased Lctcti-pi-Uum Siren (Bed Mobility) conditional independence Hut-rx-Lhzowt Siren (Bed Mobility) conditional independence Comment (Bed Mobility) Pt noted to require slight increase in time and used bed rails to assist, butwas able to perform transfer without physical assistance Transfer Assessment/Treatment Siren (Sit-Stand Transfers) contact guard assist;verbal cues required Siren (Stand-Sit Transfers) contact guard assist;verbal cues required Iff-Kwgxl-Zvv Assistive Device (Transfers) rolling walker Impairments (Transfers) strength decreased;balance impaired Comment (Transfers) Pt benefited from VC for hand placement. Gait Assessment/Treatment Comment (Gait) Pt benefited from VC for sequencing, pacing and breathing Assistive Device (Gait) rolling walker Siren (Gait) contact guard assist;other (see comments);verbal cues required (chair follow ) Distance in Feet (Gait) ~20 with three seated rest breaks Plan of Care Review Plan Of Care Reviewed With patient;significant other Progress progress towards functional goals is fair Grooming Goal Grooming Goal, Date Established 03/16/19 Grooming Goal, Time to Achieve 1 wk Grooming Goal, Activity Type Pt will stand for approximately 5 minutes to perform standing level grooming tasks with supervision and LRAD Grooming Goal, Outcome goal met Toileting Goal Toileting Goal, Date Established 03/16/19 Toileting Goal, Time to Achieve 2 wks Toileting Goal, Activity Type Pt will be conditional independent with ambulatory level toileting routines with LRAD Toileting Goal, Outcome goal ongoing LB Dressing Goal LB Dressing Goal, Date Established 03/16/19 LB Dressing Goal, Time to Achieve 2 wks LB Dressing Goal, Activity Type Pt will be supervision for LB dressing routines at seated/standing levels with AE as needed LB Dressing Goal, Outcome goal ongoing Clinical Impression Criteria for Skilled Therapeutic Interventions Met yes;treatment indicated Therapy Frequency 2-4 times/wk Anticipated Equipment Needs at Discharge bedside commode;walker (transport chair ) Anticipated Discharge Disposition home with home health;home with assist Care Management - Bia Castillo RN - 03/17/2019 1:13 PM EDT Office of Care Management(OCM)/Meter Reader Chief(CM)/Discharge Planning Service: Neuro Pager #[phone] Pt to d/c home via private vehicle. Pt to have [facility] for RN, OT, PT, ROD AND TUBE STRAIGHTENER, RECREATION ATTENDANT. Pt will also have FWW delivered to bedside prior to d/c. Pt to receive out patient referral for psychotherapy. Pt is aware of d/c plan. 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 Precautions/Restrictions: fall Precautions Comments: SBP<160, up with assist Assessment: Pt tolerated session well. He was able to ambulate about 15-20 ft with a RW and CGA withthree seated rest breaks. He continued to be very anxious requiring frequent cues for breathing as well as a pair of sunglasses in the hallway sec to photosensitivity. He reported increased headache pain after walking (up to 5/10). Following ambulation, patient reported feeling lightheaded and nauseous (There is phlegm in my throat). He was positioned to comfort in supine, and an ice pack was provided. Patient voiced feeling comfortable. Home safety education and recommendations were provided to patient and patient's SO in conjunction with OT.She reports having a good support system at home, including herself and two 18 YO boys and a 17 YO daughter. Patient reports he is looking forward to discharging to home. He will need a RW and home services to keep progressing his mobility. BP after walkin/98 mmHg. Please see the flow sheet below for patient details and mobility. Pt would benefit from ongoing physical therapy interventions. Staff Mobility Recommendations: CGA with RW with chair follow if outside room Discharge Recommendation: Home with assist and home PT/OT/home health aide, erwin rolling walker 03/17/19 1035 Rehab Evaluation Document Type therapy note (daily note) Total Evaluation Minutes, Physical Therapy 39 Patient Effort good Symptoms Noted During/After Treatment increased pain (lightheadedness) General Information Patient Profile Review yes Patient/Family/Caregiver Comments/Observations Can i sit please? 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 Precautions/Restrictions fall Precautions Comments SBP<160, up with assist Treatment Number PT 2 Self-Care Dominant Hand left Usual Activity Tolerance good Current Activity Tolerance poor Vital Signs Heart Rate 71 BP 147/86 SpO2 99 % Pain Scale/Rating Pain Assessment Scale Numbers (Numeric Rating Pain Scale) Pain Level 5 Pain Assessment Numbers/Faces/Word Pain Body Location head Pain Management Interventions (ice and positioning provided) MMT (Manual Muscle Testing) Additional Documentation (BLE summetrical, good eccentric control when sitting down sl) Bed Mobility Assessment/Treatment Wlwqyy-kd-Din Siren (Bed Mobility) independent Vix-vt-Zwyvfi Siren (Bed Mobility) independent Comment (Bed Mobility) Sitting EOB without assist Transfer Assessment/Treatment Siren (Sit-Stand Transfers) contact guard assist Siren (Stand-Sit Transfers) contact guard assist Lin-Jckgn-Icv Assistive Device (Transfers) rolling walker Comment (Transfers) Able to stand from bed and chair with CGA and a walker Gait Assessment/Treatment Siren (Gait) contact guard assist Assistive Device (Gait) rolling walker Distance in Feet (Gait) 20 ft total Comment (Gait) Slow steps in a step-to pattern. Took three resting seated breaks. Balance Skills Training Sitting Balance: Static good balance Sitting Balance: Dynamic good balance Oki-yy-Wwtsr Balance fair balance Standing Balance: Static fair balance Standing Balance: Dynamic fair balance Sensory Assessment/Intervention Additional Documentation (numbness R quad) Coping Observed Emotional State cooperative Plan of Care Review Plan Of Care Reviewed With patient;significant other Bed Mobility Goal Bed Mobility Goal, Date Established 03/16/19 Bed Mobility Goal, Time to Achieve by discharge Bed Mobility Goal, Activity Type all bed mobility activities Bed Mobility Goal, Siren Level independent Bed Mobility Goal, Date Goal Reviewed 03/17/19 Bed Mobility Goal, Outcome Achieved goal met Gait Training Goal Gait Training Goal, Date Established 03/16/19 Gait Training Goal, Time to Achieve by discharge Gait Training Goal, Siren Level supervision required Gait Training Goal, Distance to Achieve 150 ft Gait Training Goal, Date Goal Reviewed 03/17/19 Gait Training Goal, Outcome goal ongoing Transfer Training Goal Transfer Training Goal, Date Established 03/16/19 Transfer Training Goal, Time to Achieve by discharge Transfer Training Goal, Activity Type rpa-xz-aynpr/hfihu-ma-okt Transfer Train Goal, Siren Level supervision required Transfer Train Goal, Date Goal Reviewed 03/17/19 Transfer Training Goal, Outcome goal ongoing Clinical Impression Therapy Frequency 2-4 times/wk Anticipated Discharge Disposition home with assist;home with home health General Interventions Bed Mobility Training supine/sit Gait Training room distance ambulation Planned Therapy Interventions Patient/Family Education Home safety education and recommendations Deedee Eckert DPT, NCS Pager #[phone] Care Management - Bia Castillo RN - 03/17/2019 11:33 AM EDT 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 Education describing our affiliations was reviewed with them and they were educated about their right to choose where referrals are placed. Patient requests referral to: [facility]. PHONE: [phone] FAX: [phone] *For RN, OT, PT, ROD AND TUBE STRAIGHTENER, RECREATION ATTENDANT [facility] [place] *For standard FWW to be delivered to pt's room N525 on day of d/c. Expected date of discharge: 03/17/19. Referral routed to the [employer] for matching with agency/vendor and to provide any required information. Bia Castillo MSN, RN CM rake operator Office of Care Management Pager #[phone] Plan of Care - James Aiken RN - 03/16/2019 6:13 PM EDT Problem: Patient Care Overview Goal: Plan of Care Review Outcome: Ongoing (Interventions Implemented as Appropriate) 03/16/19 1005 Plan of Care Review Progress (Goals establshed this visit ) Coping/Psychosocial Plan Of Care Reviewed With patient Goal: Fall Prevention-Safe Patient Handling Outcome: Ongoing (Interventions Implemented as Appropriate) 03/16/19 0808 03/16/19 1400 Lebron Fall Risk History of Falling 0 -- Secondary Diagnosis 15 -- Ambulatory Aids 0 -- Intravenous Therapy/Heparin/Saline Lock 20 -- Gait/Transferring 10 -- Mental Status 0 -- Score 45 -- OTHER Lebron Fall Risk High -- Restraint Interventions Safety Promotion/Fall Prevention -- fall prevention program maintained Positioning Body Position -- independent Activity Activity Type activity adjusted per tolerance -- Activity Assistance Provided assistance, 2 people -- Assistive Device Utilized none -- Goal: Infection Control Outcome: Ongoing (Interventions Implemented as Appropriate) 03/16/19 0808 03/16/19 1400 Safety Interventions Isolation Precautions -- standard precautions maintained Infection Prevention -- environmental surveillance performed Coping Strategies Supportive Measures active listening utilized -- Goal: Interdisciplinary Rounds/Family Conf Outcome: Ongoing (Interventions Implemented as Appropriate) 03/15/19 0441 Interdisciplinary Rounds/Family Conf Participants physician;patient;nursing OUTCOME EVALUATION NOTE: OUTCOME SUMMARY: Patient A/OX4, Eyes perrla, active bowel sounds with a BM today, patient still continuing the 24 urine collect, patient spoke with care management today, worked with PT/OT but was cut short due to headache, treated pain X 2 also supplemented with ice packs, psych consult was done to help with patient a nxiety, was educated on proper breathing techniques and how to avoid panic attacks. PLAN MOVING FORWARD: Control blood pressure and pain Monitor Neuro status INDIVIDUALIZED FALL PREVENTION INTERVENTIONS: Patient-specific fall risk factors per assessment: IV sites, weakness Assistance: 1-2 assist Supervision: Independent Surveillance: Bed locked in low position, call barney within reach, purposeful hourly rounding, clutter free environment, bed/chair alarm on, family at bedside Patient-specific fall prevention interventions for sensory deficits provided: Yes CPG GOAL OUTCOME EVALUATION: Continue care plan as documented. Consult Note - Jah Nazario APRN - 03/16/2019 3:46 PM EDT BIT Evaluation Referral source: Consult request by primary team physician Reason for referral: Anxiety Relevant history: Mr. 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 History of anxiety and panic attacks. Mr. Nice is A&Ox4, pleasant, and cooperative, tearful at time with flat affect that brightens somewhat with conversation, reports his mood as Getting by, endorses ongoing anxiety in the context of unknown medical course, reports a panic episode yesterday I get sweaty, my chest tightens and my thoughts race, denies AH/VH, denies SI/HI. Mr. Nice described his health concerns and Not knowing what will happen to me along with feeling Stuck in the middle between his 19-year-old son and his SO who don't get along as his main stressors. He reports that work and playing softball as his main stress coping strategies. He reports nightly cannabis use for sleep and denies any regular alcohol use or other drug use. Mr. Nice was receptive to Mindfulness-Based Stress Reduction, participated in technique practice, and received printed resources for further practice. In particular he plans to practice 4-7-8 Breathingtechnique to head off potential panic episodes. He was open to Aromatherapy and received lavender essential oil for relaxation. Arrangements were made with [facility]aling [facility] team for Reiki and/or Therapeautic Massage per his request. Mr. Nice expressed insight about the nature of anxiety and his response to it. He recognized that hecould benefit from outpatient counseling and plans to contact local therapists for consultation- resources were placed in his discharge instructions. ?? Assessment: Mr. 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 History of anxiety and panic attacks. Endorses ongoing anxiety and panic episodes in the context of unknown medical course and psychosocial stressors, No acute safety concerns. Received Aromatherapy and instruction in Mindfulness-Based Stress Reduction and plans to practice 4-7-8 Breathing technique to head off potential panic episodes. Healing [facility] team to see for Reiki/Therapeutic Massage. Plans to contact local outpatient therapists for consultation- resources were placed in his discharge instructions. Interventions delivered: Aromatherapy Mindfulness Based Stress Reduction Resource coordination - outpatient mental health Supportive therapy Plan: 1. Patient plans to practice 4-7-8 Breathing technique to head off potential panic episodes. 2. Patient plans to continue utilizing Aromatherapy for relaxation. 3. [facility]aling [facility] team to see for Reiki/Therapeutic Massage. 4. Patient plans to contact local outpatient therapists for consultation. Medication Assisted Treatment Plan (select yes if referral reason indicates AUD, OUD or ALBERTINA - other): No. Discharge Planning Needs: psychotherapy referral Outpatient counseling resources were placed in discharge instructions. Time spent with the patient (min):45 minutes Time spent on case coordination (min): 15 minutes Plan of Care - Maria Isabel Vásquez OT - 03/16/2019 2:13 PM EDT Occupational Therapy Evaluation Pertinent History of Current Problem: Per MD: Jaswant Nice is a 43 y.o. left handed male with a PMH of migraines (as a teenager), s/p lumbar fusion (L5- S1),who presents as a transfer from [facility] due to concern of new onset severe headache and left sided weakness/numbness. Precautions/Restrictions: fall Precautions Comments: SBP<160, up with assist Assessment: Pt has been seen for occupational therapy evaluation, please refer to associated flowsheet data listed below for details. Jaswant Nice presents with the following performance skill deficits and client factors: decreased activity tolerance, impaired strength, impaired transfers, decreased endurance, hypertension, increased pain. These performance deficits have led to activity limitations and participation restrictions in the following areas of occupation: dressing, bathing, grooming, toileting, mobility, transferring, rest/sleep, home management, roles/routines, work, leisure, driving, community mobility, and social participation. Pt seen for OT evaluation with PT cotreatment. Pt presente d sitting EOB with SO present. Pt appeared to be in distress, SO reported Pt unable to feel feet, and swollen requesting to speak to RN. Pt educated on edema and decreased sensation. RN came in to provide similar education. Pt then agreeable to trail participation in sit to stand transfer. Pt noted to require assistance from two person and was unable to tolerate standing ~30 seconds. Pt assisted back to sitting position and then to supine. Pt noted with increased EGAN with activity. At this time Pt will benefit from discharge to [facility], however, will continue to make recommendations as appropriate.Evaluation was limited by Pt increased EGAN and BP. Pt would benefit from further inpatient OT interventions to address performance deficits and maximize participation and independence with occupations of daily living. Staff Recommendations: Encourage OOB activity and participation in all self care tasks Anticipated Discharge Disposition: (TBD, pending progress currently [facility]) Pager: [phone] Maria Isabel Vásquez OT 03/16/2019 Occupational Therapy Rehabilitation Department 03/16/19 1005 Rehab Evaluation Document Type evaluation Total Evaluation Minutes, Occupational Therapy 25 (Evaluation ) Patient Effort fair Symptoms Noted During/After Treatment increased pain General Information Patient Profile Review yes Patient/Family/Caregiver Comments/Observations I usually climb poles. General Observations of Patient Pt sitting EOB pre session noted to be distressed with SO present. Pt supine in bed post session with all needs within reach and SO and RN present. Pertinent History of Current Problem Per MD: Jaswant Nice is a 43 y.o. left handed male with a H ofmigraines (as a teenager), s/p lumbar fusion (L5- S1),who presents as a transfer from [facility] due to concern of new onset severe headache and left sided weakness/numbness. Hearing Precautions/Limitations WFL Precautions/Restrictions fall Precautions Comments SBP<160, up with assist Treatment Number OT 1 Living Environment Patient population Adult Living Environment Living Environment Comment Pt lives with SO in a one level ranch with 3 REI with rail. Functional Level Prior Prior Functional Level Comment Pt PLOF is independent at baseline. Pt works and drives. 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 Self-Care Dominant Hand left Vital Signs BP (!) 180/120 SpO2 98 % O2 Device RA Pain Scale/Rating Pain Assessment Scale Numbers (Numeric Rating Pain Scale) Pain Level 4 Pain Assessment Numbers/Faces/Word Pain Body Location - Side Left Pain Body Location head Bed Mobility Assessment/Treatment Impairments (Bed Mobility) strength decreased;balance impaired Prpwvj-uq-Nkq Siren (Bed Mobility) minimum assist (75% patient effort) Zjb-qu-Mhsegx Siren (Bed Mobility) minimum assist (75% patient effort) Comment (Bed Mobility) Pt sitting EOB pre session. Pt SO reported Pt used hand held assistance for supine to sit transfer. Pt required min A for LB for sit to supine transfer. Transfer Assessment/Treatment Siren (Sit-Stand Transfers) moderate assist (50% patient effort);2 person assist required;verbal cues required Siren (Stand-Sit Transfers) moderate assist (50% patient effort);2 person assist required;verbal cues required Jpa-Ieeba-Qjv Assistive Device (Transfers) other (see comments) (Pt required bilateral UE support ) Impairments (Transfers) strength decreased;balance impaired Comment (Transfers) Pt attempted to perform sit<>stand transfer Pt required extend time and difficulty with coming into full erect position. Pt required VC for posture. Pt noted to use posterior assistance on bed initially. ADL Assessment/Intervention Additional Documentation Lower Body Dressing Assessment/Training (Group) Lower Body Dressing Assessment/Training Position (LB Dressing) sitting Siren Level (LB Dressing) dependent (less than 25% patient effort) Impairments (LB Dressing) pain;strength decreased;flexibility decreased Comment (LB Dressing) Pt required dependent assistance to don socks while seated EOB. Plan of Care Review Plan Of Care Reviewed With patient Progress (Goals establshed this visit ) Grooming Goal Grooming Goal, Date Established 03/16/19 Grooming Goal, Time to Achieve 1 wk Grooming Goal, Activity Type Pt will stand for approximately 5 minutes to perform standing level grooming tasks with supervision and LRAD Toileting Goal Toileting Goal, Date Established 03/16/19 Toileting Goal, Time to Achieve 2 wks Toileting Goal, Activity Type Pt will be conditional independent with ambulatory level toileting routines with LRAD LB Dressing Goal LB Dressing Goal, Date Established 03/16/19 LB Dressing Goal, Time to Achieve 2 wks LB Dressing Goal, Activity Type Pt will be supervision for LB dressing routines at seated/standing levels with AE as needed Clinical Impression Criteria for Skilled Therapeutic Interventions Met yes;treatment indicated Therapy Frequency 2-4 times/wk Anticipated Equipment Needs at Discharge (TBD) Anticipated Discharge Disposition (TBD, pending progress currently [facility]) General Therapy Interventions Planned Therapy Interventions ADL retraining;IADL retraining;balance training;bed mobility training;ROM (range of motion);strengthening;transfer training;stretching 2016 OT Evaluation Code Rationale: ?? Diagnosis & Pertinent Co-Morbidities affecting Plan of Care: see PMHx ?? Occupational Profile & Client History: Brief Expanded Extensive ?? Assessment of Occupational Performance: 1-3 performance deficits 3-5 performance deficits 5 + performance deficits ?? Clinical Decision Making: Low Moderate High Clinical decision making of high complexity using standardized patient assessment instrument and measurable assessment of functional outcome. Plan of Care - Deedee Eckert, PT - 03/16/2019 12:43 PM EDT Physical Therapy Evaluation Pertinent History of Current Problem: Jaswant Nice is a 43 y.o. left handed male with a PMH of migraines (as a teenager), s/p lumbar fusion (L5-S1),who presents as a transfer from [facility] due to concern ofnew onset severe headache and left sided weakness/numbness. Precautions/Restrictions: fall Precautions Comments: SBP<160, up with assist Assessment: Pt seen today for PT evaluation. Patient presents with anxiety, decreased strength and balance, impaired activity tolerance as well as pain all of which impact his current functional level.Patient was seen with girlfriend at bedside. Girlfriend reported anxiously to PT/OT that patient could not feel the bottoms of his feet and that his feet were massively swollen. Assessed patient's feet which appeared mildly edematous dorsally; patient reports pins and needles sensation (RN aware). Patient was sitting at EOB and agreed to try a sit to stand transfer despite his girlfriend voicing concerns. Patient stood at bedside with mod A x 2 (underarm assist on either side). As soon as he started to rise, patient appeared panicky and started to take rapid, shallow breaths, stating I can't do this repeatedly before sitting down again. He reported increased headache and wanted to be repositioned in supine. Patient was therefore repositioned to comfort and left resting; BP after stand 180/120 mmHg, RN in to assess. Mobility-[place], it appears that patient's primarily limiting factor is his anxiety further escalated by his partner's anxiety. 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 Will continue to assess/work with patient to arrive at an appropriate dispo recommendation. Patient is a good candidate for ongoing skilled interventions to improve mobility and facilitate progress towards resuming PLOF. Staff Mobility Recommendations: Assist x 2 SPT Discharge Recommendation: TBD; patient very anxious with mobility. Ultimately anticipate home. 03/16/19 1001 Rehab Evaluation Document Type evaluation Total Evaluation Minutes, Physical Therapy 25 Patient Effort fair Symptoms Noted During/After Treatment increased pain (elevated BP, RN aware) General Information Patient Profile Review yes Patient/Family/Caregiver Comments/Observations I can't feel the bottoms of my feet General Observations of Patient distressed, cooperative, anxious Pertinent History of Current Problem Jaswant Nice is a 43 y.o. left handed male with a PMH of migraines (as a teenager), s/p lumbar fusion (L5-S1),who presents as a transfer from [facility] due to concern of new onset severe headache and left sided weakness/numbness. Precautions/Restrictions fall Precautions Comments SBP<160, up with assist Treatment Number PT 1 Living Environment Patient population Adult Living Environment Lives With significant other Living Arrangements house Number of Stairs to Enter Home 3 Living Environment Comment Lives with girlfriend in a one-level ranch home with 3 REI with railing present. 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 Self-Care Dominant Hand left Usual Activity Tolerance good Current Activity Tolerance poor Vital Signs BP (!) 180/120 (after standing at bedside) SpO2 98 % O2 Device RA Cognitive Assessment/Intervention Additional Documentation (a&o x 3, follows commands) Pain Scale/Rating Pain Assessment Scale Numbers (Numeric Rating Pain Scale) Pain Level 4 Pain Assessment Numbers/Faces/Word Pain Body Location - Side Left Pain Body Location head ROM (Range of Motion) Additional Documentation (BLE WFL) MMT (Manual Muscle Testing) Additional Documentation (deconditioned) Mobility Assessment/Training Additional Documentation Bed Mobility Assessment/Treatment (Group);Gait Assessment/Treatment (Group);Transfer Assessment/Treatment (Group) Bed Mobility Assessment/Treatment Ahutpl-hg-Gfe Siren (Bed Mobility) minimum assist (75% patient effort) Fuq-jy-Ctknyj Siren (Bed Mobility) minimum assist (75% patient effort) Impairments (Bed Mobility) strength decreased;balance impaired Comment (Bed Mobility) Pulled himself up on arm of significant other. Able to sit without assistance. Transfer Assessment/Treatment Siren (Sit-Stand Transfers) moderate assist (50% patient effort);2 person assist required Siren (Stand-Sit Transfers) moderate assist (50% patient effort);2 person assist required Uhu-Wqery-Ryg Assistive Device (Transfers) (underarm on either side) Impairments (Transfers) strength decreased;balance impaired Comment (Transfers) Attempted a bedside stand. became increasingly anxious, breathing in shallow rapid breaths, then sitting down again. Gait Assessment/Treatment Comment (Gait) Not assessed today Motor Skills/Interventions Additional Documentation Balance Skills Training (Group) Balance Skills Training Sitting Balance: Static good balance Sitting Balance: Dynamic fair balance Xuv-rk-Rufrw Balance poor balance Standing Balance: Static poor balance Standing Balance: Dynamic unable to balance Coping Observed Emotional State anxious Plan of Care Review Plan Of Care Reviewed With patient Physical Therapy Goal Types Physical Therapy Goal Types Bed Mobility Goal (Group);Gait Training Goal (Group);Transfer Training Goal (Group) Bed Mobility Goal Bed Mobility Goal, Date Established 03/16/19 Bed Mobility Goal, Time to Achieve by discharge Bed Mobility Goal, Activity Type all bed mobility activities Bed Mobility Goal, Siren Level independent Gait Training Goal Gait Training Goal, Date Established 03/16/19 Gait Training Goal, Time to Achieve by discharge Gait Training Goal, Siren Level supervision required Gait Training Goal, Distance to Achieve 150 ft Transfer Training Goal Transfer Training Goal, Date Established 03/16/19 Transfer Training Goal, Time to Achieve by discharge Transfer Training Goal, Activity Type nfu-dk-axdyw/knawm-jz-znx Transfer Train Goal, Siren Level supervision required Clinical Impression Functional Level at Time of Evaluation Required assist x 2 to stand, did not tolerate more mobility Patient/Family Goals Statement To find out what's wrong Therapy Frequency 2-4 times/wk Anticipated Discharge Disposition home with assist (pending further assessment) General Interventions Additional Documentation Planned Therapy Interventions (Group) Planned Therapy Interventions balance training;bed mobility training;gait training;motor coordination training;neuromuscular re-education;patient/family education;stair training;ROM (range of motion);strengthening;stretching;transfer training Pager: [phone] Deedee Eckert DPT, [place] Physical Therapy Rehabilitation Department 2017 PT Evaluation Code Rationale: ?? Diagnosis & Pertinent Co-Morbidities, personal factors, and present illness affecting Plan ofCare: Patient Active Problem List Diagnosis Code ??? Headache R51 Additional personal factors or co-morbidities that impact plan: ?? Total # of Factors: 0 1-2 3+ x ?? Examination of body system impairments, functional limitations and behaviors, and/or participation restrictions. Addressing 1-2 elements Addressing 3 + elements Addressing 4 + elements x ?? Clinical presentation: See assessment above. Stable/Uncomplicated Evolving/Fluctuating Symptoms Unstable/Unpredictable x ?? Clinical decision making of high complexity based on pt's functional performance as outlined in this evaluation. Plan of Care - Brandyn George RN - 03/16/2019 3:11 AM EDT Problem: Patient Care Overview Goal: Plan of Care Review Outcome: Ongoing (Interventions Implemented as Appropriate) 03/15/1944003/15/191999 Plan of Care Review Progress improving -- Coping/Psychosocial Plan Of Care Reviewed With -- patient OUTCOME EVALUATION NOTE: OUTCOME SUMMARY: Pt is A/O x4, strengths 5/5. BP remained <180. Tylenol and naproxen given for EGAN. Sister stayed at bedside overnight. PLAN MOVING FORWARD: pain management, monitor BP INDIVIDUALIZED FALL PREVENTION INTERVENTIONS: bed alarm Patient-specific fall risk factors per assessment: increased EGAN with ambulation Assistance: SBA Supervision: Eyes on Surveillance: Bed locked in low position, call barney within reach, purposeful hourly rounding, clutter free environment, bed/chair alarm on, family at bedside Patient-specific fall prevention interventions for sensory deficits provided: n/a CPG GOAL OUTCOME EVALUATION: Continue care plan as documented. Plan of Care - James Aiken RN - 03/15/2019 5:16 PM EDT Problem: Patient Care Overview Goal: Plan of Care Review Outcome: Ongoing (Interventions Implemented as Appropriate) 03/15/1944003/15/19 0745 Plan of Care Review Progress improving -- Coping/Psychosocial Plan Of Care Reviewed With -- patient Goal: Fall Prevention-Safe Patient Handling Outcome: Ongoing (Interventions Implemented as Appropriate) 03/14/19 0541 03/14/19199903/14/19 2359 Lebron Fall Risk History of Falling -- -- 0 Secondary Diagnosis -- -- 15 Ambulatory Aids -- -- 0 Intravenous Therapy/Heparin/Saline Lock -- -- 20 Gait/Transferring -- -- 10 Mental Status -- -- 0 Score -- -- 45 OTHER Lebron Fall Risk -- -- High Restraint Interventions Safety Promotion/Fall Prevention -- -- -- Positioning Body Position -- -- -- Activity Activity Type -- ambulated to bathroom -- Activity Assistance Provided -- assistance, 1 person;assistance, stand-by -- Assistive Device Utilized none -- -- 03/15/19 1600 Lebron Fall Risk History of Falling -- Secondary Diagnosis -- Ambulatory Aids -- Intravenous Therapy/Heparin/Saline Lock -- Gait/Transferring -- Mental Status -- Score -- OTHER Lebron Fall Risk -- Restraint Interventions Safety Promotion/Fall Prevention safety round/check completed Positioning Body Position independent Activity Activity Type -- Activity Assistance Provided -- Assistive Device Utilized -- Goal: Infection Control Outcome: Ongoing (Interventions Implemented as Appropriate) 03/14/19 1700 03/15/19 0745 Safety Interventions Isolation Precautions standard precautions maintained -- Infection Prevention environmental surveillance performed -- Coping Strategies Supportive Measures -- active listening utilized Goal: Interdisciplinary Rounds/Family Conf Outcome: Ongoing (Interventions Implemented as Appropriate) 03/15/19 0441 Interdisciplinary Rounds/Family Conf Participants physician;patient;nursing OUTCOME EVALUATION NOTE: OUTCOME SUMMARY: Patient A/OX4, Eyes PERRLA, cardiac-NSR, had to treat HTN twice with 20mg of labetalol, Patient complains of severe headaches that are on his left side and go in and out. Stat airway was called this morning (refer to note), patient woke up with the feeling of a marble stuck in his chest and unable to breathe, patient was transferred to [facility] for closer monitoring, Neuro was notified for uncontrollable pain that occurred at 1600. Naproxen and Mag were given to help with headaches. PLAN MOVING FORWARD: Continue to monitor pain and neuro status, cardiac status INDIVIDUALIZED FALL PREVENTION INTERVENTIONS: Patient-specific fall risk factors per assessment: IV sites Assistance: 1-2 assist Supervision: Hands on Surveillance: Bed locked in low position, call barney within reach, purposeful hourly rounding, clutter free environment, bed/chair alarm on, family at bedside Patient-specific fall prevention interventions for sensory deficits provided: Yes CPG GOAL OUTCOME EVALUATION: Continue care plan as documented. Initial Assessments - Chaim Johnston MSW - 03/15/2019 8:50 AM EDT Office of Care Management Initial Assessment YEHUDA Wesley reviewed record and discussed patient with Care Team. Source of Information: Patient, Chart, Treatment Team Introduced self/reviewed role; services accepted. Reason for Hospitalization: Severe headache and left sided weakness/numbness History reviewed. No pertinent past medical history. Hospitalizations Within the Past 30 Days: none Anticipated Length Of Stay (If known): 1-4 days Current Decision-Making Capacity: A&OX4 Advance Care Planning: None in eDH- declines to do while here Current Coping/Education/Information Needs: none Current Functional Ability: 2 assist Functional Status Prior to Admission: two weeks ago he was very independent and active Home Environment: 3 steps to enter single floor living Social & Family Supports/Community Resources: lives with his son, girlfriend, girlfriend's daughter, a dog (beagle mix) Behavioral Health History: Anxiety (sister mentioned depression)- patient is open to referral for counseling around stress management. 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 left handed male with a PMH of migraines (as a teenager), s/p lumbar fusion (L5-S1),who presents as a transfer from [facility] due to concern of new onset severe headache and left sided weakness/numbness. Last night he was seen normal by his girlfriend at 10 PM. He woke up twice around 12:30 AM, 2 AM, 5 AM with sweats. He had diarrhea and that was when he noticed the headache, which was a 10/10. +photophobia, denies phonophobia, +nausea, no vomiting. Denies any vision changes. Plan: Likely home with follow up A member of the Care Management team will continue to monitor progress, follow for continuity of care and assist with transition of care planning. YEHUDA Wesley Pager: [phone] Plan of Care - Gaetano Jesus RN - 03/15/2019 4:45 AM EDT Problem: Patient Care Overview Goal: Plan of Care Review Outcome: Ongoing (Interventions Implemented as Appropriate) 03/14/19235803/15/19 044 Plan of Care Review Progress -- improving Coping/Psychosocial Plan Of Care Reviewed With patient -- Jaswant has denied feelings of pain this shift. VSS. Up with SBA. Has been sleeping between care with call light and personal items within reach. Goal: Fall Prevention-Safe Patient Handling Outcome: Ongoing (Interventions Implemented as Appropriate) 03/14/19 0541 03/14/19199903/14/192358 Lebron Fall Risk History of Falling -- -- 0 Secondary Diagnosis -- -- 15 Ambulatory Aids -- -- 0 Intravenous Therapy/Heparin/Saline Lock -- -- 20 Gait/Transferring -- -- 10 Mental Status -- -- 0 Score -- -- 45 OTHER Lebron Fall Risk -- -- High Restraint Interventions Safety Promotion/Fall Prevention -- activity supervised;nonskid shoes/slippers when out of bed -- Positioning Body Position -- independent -- Activity Activity Type -- ambulated to bathroom -- Activity Assistance Provided -- assistance, 1 person;assistance, stand-by -- Assistive Device Utilized none -- -- Goal: Infection Control Outcome: Ongoing (Interventions Implemented as Appropriate) 03/14/19 1700 03/14/192358 Safety Interventions Isolation Precautions standard precautions maintained -- Infection Prevention environmental surveillance performed -- Coping Strategies Supportive Measures -- active listening utilized;verbalization of feelings encouraged Goal: Interdisciplinary Rounds/Family Conf Outcome: Ongoing (Interventions Implemented as Appropriate) 03/15/19 0441 Interdisciplinary Rounds/Family Conf Participants physician;patient;nursing Consult Note - Sue Jackson Crow - 03/13/2019 5:22 PM EDT Images from the original note were not included. INTERVENTIONAL RADIOLOGY FOCUSED H&P and PRE-PROCEDURE NOTE: PCP: Ryne Harris MD Referring Provider: Cali Fishman Planned Procedure: Lumbar Puncture Procedure Indication: Concern for SAH There are no answered order specific questions. Presenting Diagnosis/ Complaint: Jaswant Nice is a 43 y.o. male with new onset headaches and left sided weakness/numbness with clinical concern for subarachnoid hemorrhage. Presence of aneurysms on CTA.Note of prior spine stimulator at L5/S1. Past Medical/Surgical History: Patient Active Problem List Diagnosis Code ??? Headache R51 No past medical history on file. No past surgical history on file. Medications: No current facility-administered medications on file prior to encounter. Current Outpatient Medications on File Prior to Encounter Medication Sig Dispense Refill ??? naproxen sodium (ALEVE) 220 mg Capsule Take 220 mg by mouth as needed. ??? [DISCONTINUED] hydroCODone-acetaminophen (VICODIN) 5-500 mg per tablet 1-2 Tablet(s), PO, Q12H PRN ??? [DISCONTINUED] senna-docusate (PERICOLACE) 8.6-50 mg per tablet 1-4 Tablet(s), PO, Twice daily ??? [DISCONTINUED] SUMAtriptan (IMITREX) 25 mg tablet Allergies: Aspirin Significant Family History: No family history on file. Pertinent ROS: as per HPI Labs: Lab Results Component Value Date WBC 7.9 03/13/2019 HCT 42.3 03/13/2019 PLATELET 236 03/13/2019 BUN 13 03/13/2019 CREATININE 0.90 03/13/2019 ALKPHOS 58 03/13/2019 AST 41 (H) 03/13/2019 ALBUMIN 4.3 03/13/2019 BILIDIR 0.2 03/13/2019 BILITOT 0.9 03/13/2019 ALT 55 03/13/2019 PROT 6.8 03/13/2019 Imaging: CT head 03/13/19 Assessment: 43 y.o. male with concern for SAH, unsuccessful LP on the floor. Plan to proceed with LPunder fluoroscopic guidance. Sue Jackson MD 03/13/2019 5:23 PM documented in this encounter Plan of Treatment Not on filedocumented as of this encounter Procedures Procedure Name Priority Date/Time Associated Comments Diagnosis U24 HRS AND VOLUME Routine 03/17/2019 10:00 Resul ts for this AM EDT procedure are i n the results section. METANEPHRINES, Routine 03/17/2019 10:00 Results f or this FRACTIONATED, URINE, 24 AM EDT proc edure are in HOUR the results section. CATECHOLAMINES FRAC Routine 03/17/2019 10:00 Resu lts for this FREE URINE, 24 HR AM EDT procedure are in the results section. CORTISOL Routine 03/16/2019 8:09 Results for this AM EDT procedure are i n the results section. METANEPHRINES, Routine 03/16/2019 2:19 Results fo r this FRACTIONATED FREE, AM EDT procedure are in PLASMA the results section. CATECHOLAMINES Routine 03/16/2019 2:19 Results fo r this FRACTIONATED FREE, AM EDT procedure are in PLASMA the results section. METHYLMALONIC ACID, Routine 03/16/2019 2:19 Resul ts for this SERUM AM EDT procedure are i n the results section. T4, FREE Routine 03/16/2019 2:19 Results for this AM EDT procedure are i n the results section. FOLATE, SERUM Routine 03/16/2019 2:19 Results for this AM EDT procedure are i n the results section. VITAMIN B12 Routine 03/16/2019 2:19 Results for this AM EDT procedure are i n the results section. COMPREHENSIVE METABOLIC Routine 03/16/2019 2:19 R esults for this PANEL (NON-FASTING) AM EDT procedur e are in the results section. GOLD TUBE HOLD Routine 03/15/2019 7:51 Results fo r this PM EDT procedure are i n the results section. GREEN TUBE HOLD Routine 03/15/2019 7:51 Results f or this PM EDT procedure are i n the results section. XR CHEST ONE VIEW STAT 03/15/2019 11:53 Result s for this AM EDT procedure are i n the results section. HEMOGRAM Routine 03/15/2019 2:23 Results for this AM EDT procedure are i n the results section. DIFFERENTIAL, AUTOMATED Routine 03/15/2019 2:23 R esults for this AM EDT procedure are i n the results section. CBC (WITH DIFF) Routine 03/15/2019 2:23 AM EDT TROPONIN STAT 03/15/2019 2:23 Results for this AM EDT procedure are i n the results section. TSH Routine 03/15/2019 2:23 Results for this AM EDT procedure are i n the results section. PHOSPHORUS Routine 03/15/2019 2:23 Results for this AM EDT procedure are i n the results section. MAGNESIUM Routine 03/15/2019 2:23 Results for this AM EDT procedure are i n the results section. HEPATIC FUNCTION PANEL Routine 03/15/2019 2:23 Re sults for this AM EDT procedure are i n the results section. BASIC METABOLIC PANEL Routine 03/15/2019 2:23 Res ults for this (NON-FASTING) AM EDT procedure are in the results section. TROPONIN STAT 03/14/2019 9:58 Results for this PM EDT procedure are i n the results section. EKG 12-LEAD STAT 03/14/2019 9:55 Chest pain, Results for this PM EDT unspecified type procedure a re in the results section. CT HEAD WO CONTRAST Routine 03/14/2019 1:37 Resul ts for this (GENERIC) PM EDT procedure are i n the results section. EKG 12-LEAD STAT 03/14/2019 10:08 TIA (transient Results f or this AM EDT ischemic attack) procedure a re in the results section. ZEEG AWAKE, ASLEEP, Routine 03/13/2019 9:46 Resul ts for this DROWSY PM EDT procedure are i n the results section. XR FLUORO GUIDED LUMBAR STAT 03/13/2019 7:07 R esults for this PUNCTURE PM EDT procedure are i n the results section. MISCELLANEOUS LAB Routine 03/13/2019 7:00 Results for this REQUEST PM EDT procedure are i n the results section. 4 TOTAL TUBES SENT CSF Routine 03/13/2019 6:32 PM EDT CSF CELL COUNT Routine 03/13/2019 6:32 Results fo r this PM EDT procedure are i n the results section. CSF DESC 4 Routine 03/13/2019 6:32 Results for this PM EDT procedure are i n the results section. CSF DESC 3 Routine 03/13/2019 6:32 Results for this PM EDT procedure are i n the results section. CSF DESC 2 Routine 03/13/2019 6:32 Results for this PM EDT procedure are i n the results section. CSF DESC 1 Routine 03/13/2019 6:32 Results for this PM EDT procedure are i n the results section. CSF CULTURE Routine 03/13/2019 6:32 Results for this PM EDT procedure are i n the results section. PROTEIN LEVEL CSF Routine 03/13/2019 6:32 Results for this PM EDT procedure are i n the results section. GLUCOSE LEVEL CSF Routine 03/13/2019 6:32 Results for this PM EDT procedure are i n the results section. URINALYSIS MICROSCOPIC Routine 03/13/2019 6:01 Re sults for this EXAM PM EDT procedure are i n the results section. URINE HOLD Routine 03/13/2019 6:01 Results for this PM EDT procedure are i n the results section. URINALYSIS WITH REFLEX Routine 03/13/2019 6:01 Re sults for this CULTURE PM EDT procedure are i n the results section. BMP W/FASTING GLUCOSE Routine 03/13/2019 4:20 Res ults for this PM EDT procedure are i n the results section. HEMOGRAM Routine 03/13/2019 4:20 Results for this PM EDT procedure are i n the results section. DIFFERENTIAL, AUTOMATED Routine 03/13/2019 4:20 R esults for this PM EDT procedure are i n the results section. SEDIMENTATION RATE Routine 03/13/2019 4:20 Result s for this PM EDT procedure are i n the results section. CBC (WITH DIFF) Routine 03/13/2019 4:20 PM EDT TROPONIN STAT 03/13/2019 4:20 Results for this PM EDT procedure are i n the results section. TRIGLYCERIDE Routine 03/13/2019 4:20 Results for this PM EDT procedure are i n the results section. PHOSPHORUS Routine 03/13/2019 4:20 Results for this PM EDT procedure are i n the results section. MAGNESIUM Routine 03/13/2019 4:20 Results for this PM EDT procedure are i n the results section. LDL CHOLESTEROL, DIRECT Routine 03/13/2019 4:20 R esults for this PM EDT procedure are i n the results section. HDL/CHOL PROFILE Routine 03/13/2019 4:20 Results for this PM EDT procedure are i n the results section. HEMOGLOBIN A1C Routine 03/13/2019 4:20 Results fo r this PM EDT procedure are i n the results section. CALCIUM Routine 03/13/2019 4:20 Results for this PM EDT procedure are i n the results section. HEPATIC FUNCTION PANEL Routine 03/13/2019 4:20 Re sults for this PM EDT procedure are i n the results section. documented in this encounter Results U24 Hrs and Volume (03/17/2019 10:00 AM EDT) P athologist Signature Hours 24 hour(s) [facility] LABORATORY Urine TV (ml) 2,750 mL [facility] LABORATORY Specimen Anatomical Collection Method Collection Time Receive d Time (Source) Location / / Volume Laterality Urine specimen 03/17/2019 10:00 9 (specimen) AM EDT 12:32 PM EDT Resulting Agency Comment Spec In Lab Dejon Dey MD CHEMISTRY ORDERABLES Performing Organization Address City/State/[place] [address] Catecholamines Frac Free urine, 24 hr (03/17/2019 10:00 AM EDT) Component Value Ref Test Analysis Performed At Patholo gist Range Method Time Signature U24 JARRETT Catechol, Test ? Result ?Flag ??Unit ?RefValue HITC HCOCK Frac [facility] Catecholamine Fract, Free, U H OSPITAL ??Collection Duration ?24 ?h LABORATORY ??Urine Volume ? 2750 ?mL ??Norepinephrine ? 24 ?mcg/24 h ??15-80 ??Epinephrine ?<1.4 ?mcg/24 h ??<21 ??Dopamine ? 278 ? mcg/24 h ??65-400 ? ADDITIONAL INFORMATION ------ ?This test was developed and its performance characteri stics ?determined by [facility] in a manner consistent with CLIA ?requirements. This test has not been cleared or approv ed by ?the U.S. Food and Drug Administration. ?Test Performed by: ?[facility] ?[address] [place] [address] Specimen Anatomical Collection Method Collection Time Receive d Time (Source) Location / / Volume Laterality Urine specimen 03/17/2019 10:00 9 1:46 (specimen) AM EDT PM EDT Resulting Agency Comment Spec In Lab Aline Tay MD URINE ORDERABLES Performing Organization Address City/State/[place] [address] Metanephrines, Fractionated, urine, 24 hour (03/17/2019 10:00 AM EDT) Component Value Ref Test Analysis Performed At [facility] Method Time Signature U24 JARRETT Metanephrine Test ? Result ?Flag ??Unit ?RefValue Juju Jameson [facility] Metanephrines, Fractionated, 24h, U HOSPITAL ??Metanephrine, U ?110 ? mcg/24 h LABORATORY ? REFERENCE VALUE ------ ?44-261 (Normotensive) ?<400 (Hypertensive) ??Normetanephrine, U ? 184 ? mcg/24 h ? REFERENCE VALUE ------ ?119-451 (Normotensive) ?<900 (Hypertensive) ??Total Metanephrines, U ? 294 ? mcg/24 h ? REFERENCE VALUE ------ ?211-646 (Normotensive) ?<1300 (Hypertensive) ??Collection Duration ?24 ?h ??Urine Volume ? 2750 ?mL ? ADDITIONAL INFORMATION ------ ?This test was developed and its performance characteri stics ?determined by [facility] in a manner consistent with CLIA ?requirements. This test has not been cleared or approv ed by ?the U.S. Food and Drug Administration. ?Test Performed by: ?[facility] ?[address] [place] [address] Specimen Anatomical Collection Method Collection Time Receive d Time (Source) Location / / Volume Laterality Urine specimen 03/17/2019 10:00 9 1:46 (specimen) AM EDT PM EDT Resulting Agency Comment Spec In Lab Aline Tay MD URINE ORDERABLES Performing Organization Address City/State/ZIP Code Phon e Number [facility] [place] [address] Cortisol (03/16/2019 8:09 AM EDT) P athologist Signature Cortisol 6.2 mcg/dL [facility] Comment: Reference ranges: ??AM (6-10am): ??4.8-19.5 mcg/dL ??PM (4-8pm) : ??2.5-11.9 mcg/dL Specimen Anatomical Collection Method Collection Time Receive d Time (Source) Location / / Volume Laterality Blood specimen 03/16/2019 8:09 AM 019 8:15 (specimen) EDT AM EDT Resulting Agency Comment Spec In Lab Aline Tay MD CHEMISTRY ORDERABLES Performing Organization Address City/[facility]/ZIP Code Phon e Number [address] Methylmalonic acid, serum (03/16/2019 2:19 AM EDT) [facility] Travolver Method Time Signature Methylmalonic Acid 0.13 <=0.40 [facility] O[facility] nmol/mL [facility] Comment: ADDITIONAL INFORMATIO N This test was developed and its performa nce characteristics determined by [facility] in a manner co nsistent with CLIA requirements. This test has not been jenni ared or approved by the U.S. Food and Drug Administration. Test Performed by: [facility] - [address] [address] Specimen Anatomical Collection Method Collection Time Receive d Time (Source) Location / / Volume Laterality Blood specimen 03/16/2019 2:19 AM 019 8:34 (specimen) EDT AM EDT Resulting Agency Comment Spec In Lab Aline Tay MD CHEMISTRY ORDERABLES Performing Organization Address City/[facility]/[place] [address] Catecholamines Fractionated Free, plasma (03/16/2019 2:19 AM EDT) [facility] Method Time Signature Cat Frac Free See Scan [facility] LABORATORY Comment: Test performed by TITO perla, [address] [place] [id number] Specimen Anatomical Collection Method Collection Time Receive d Time (Source) Location / / Volume Laterality Blood specimen 03/16/2019 2:19 AM 019 8:42 (specimen) EDT AM EDT Narrative This result has an attachment that is no t available. Resulting Agency Comment Spec In Lab Aline Tay MD CHEMISTRY ORDERABLES Performing Organization Address City/[facility]/ZIP Code Phon e Number [address] Metanephrines, Fractionated Free, plasma (03/16/2019 2:19 AM EDT) P athologist Signature Normetane Free <0.20 <0.90 [facility] nmol/L [facility] Comment: Test Performed by: [facility] [address] [place], [place] [address] Metanephr Free <0.20 <0.50 nmol/L [facility] LABORATORY Comment: ADDITIONAL INFORMATIO N This test was developed and its performa nce characteristics determined by [facility] in a manner co nsistent with CLIA requirements. This test has not been jenni ared or approved by the U.S. Food and Drug Administration. Test Performed by: [facility] [address] [place] [address] Specimen Anatomical Collection Method Collection Time Receive d Time (Source) Location / / Volume Laterality Blood specimen 03/16/2019 2:19 AM 019 8:46 (specimen) EDT AM EDT Resulting Agency Comment Spec In Lab Aline Tay MD CHEMISTRY ORDERABLES Performing Organization Address City/[facility]/ZIP Code Phon e Number [address] Folate, serum (03/16/2019 2:19 AM EDT) P athologist Signature Folate Lvl 11.5 4.8 - 24.2 JARRETT MUNA ng/mL [facility] LAB[facility]ORY Specimen Anatomical Collection Method Collection Time Receive d Time (Source) Location / / Volume Laterality Blood specimen 03/16/2019 2:19 AM 019 2:36 (specimen) EDT AM EDT Resulting Agency Comment Spec In Lab Aline Tay MD CHEMISTRY ORDERABLES Performing Organization Address City/[facility]/ZIP Code Phon e Number [address] Vitamin B12 (03/16/2019 2:19 AM EDT) athologist Signature Vitamin B-12 1,045 232 - 1,245 [facility] pg/mL [facility] LAB[facility]ORY Specimen Anatomical Collection Method Collection Time Receive d Time (Source) Location / / Volume Laterality Blood specimen 03/16/2019 2:19 AM 019 2:36 (specimen) EDT AM EDT Resulting Agency Comment Spec In Lab Aline Tay MD CHEMISTRY ORDERABLES Performing Organization Address City/State/ZIP Code Phon e Number [address] (ABNORMAL) Comprehensive metabolic panel (non-fasting) (03/16/2019 2:19 AM EDT) athologist Signature Glucose Lvl 136 65 - 199 [facility] mg/dL [facility] Comment: Diabetes: >=200 mg/dL plus symp toms BUN 11 10 - 20 mg/dL [facility] Creatinine 0.77 (L) 0.80 - 1.50 mg/dL [facility] Sodium 141 135 - 145 mmol/L [facility] Potassium 3.5 3.5 - 5.0 mmol/L [facility] Comment: Please note: ??Patients with WBC >100,00 0 may have falsely elevated Potassium levels. ??For accurate Potassium quantif ication in these patients send serum separator tube (gold top) for subsequent determinations. ??Contact the Clinical Chemistry Laboratory if there are any qu estions. Chloride 106 98 - 107 mmol/L [facility] CO2 25 22 - 31 mmol/L [facility] Anion Gap 10 5 - 15 mmol/L [facility] Calcium 8.6 8.5 - 10.5 mg/dL [facility] Total Protein 6.2 6.1 - 8.0 gm/dL [facility] Albumin 3.7 3.2 - 5.2 gm/dL [facility] AST 22 0 - 39 unit/L [facility] ALT 43 0 - 55 unit/L [facility] Alk Phos 54 40 - 120 unit/L [facility] Total Bilirubin 0.2 0.2 - 1.3 mg/dL [facility] LAB[facility]ORY Estimated GFR 112 >=60 mL/min/1.73 m?? [facility] Comment: The eGFR was calculated using the CKD-EP I equation. As with all creatinine based estimates of kidney function, eGFR values calculated with the CKD-EPI equation are not accurate in patients wi th acute kidney failure, extremes of body mass or the acutely ill. [email or web address] [email or web address] eGFR 130 >=60 mL/min/1.73 m?? [facility] Comment: The eGFR was calculated using the CKD-EP I equation. As with all creatinine based estimates of kidney function, eGFR values calculated with the CKD-EPI equation are not accurate in patients wi th acute kidney failure, extremes of body mass or the acutely ill. [email or web address] [email or web address] Specimen Anatomical Collection Method Collection Time Receive d Time (Source) Location / / Volume Laterality Blood specimen 03/16/2019 2:19 AM 019 2:36 (specimen) EDT AM EDT Resulting Agency Comment Spec In Lab Aline Tay MD CHEMISTRY ORDERABLES Performing Organization Address City/[facility]/ZIP Code Phon e Number [address] T4, free (03/16/2019 2:19 AM EDT) P athologist Signature Free T4 1.09 0.93 - 1.70 [facility] ng/dL [facility] Specimen Anatomical Collection Method Collection Time Receive d Time (Source) Location / / Volume Laterality Blood specimen 03/16/2019 2:19 AM 019 2:36 (specimen) EDT AM EDT Resulting Agency Comment Spec In Lab Aline Tay MD CHEMISTRY ORDERABLES Performing Organization Address City/[facility]/ZIP Code Phon e Number [address] Green Tube HOLD (03/15/2019 7:51 PM EDT) P athologist Signature Green Hold Sample in [facility]. [facility] Specimen Anatomical Collection Method Collection Time Receive d Time (Source) Location / / Volume Laterality Blood specimen No Charge / 03/15/2019 7:51 PM 019 8:58 (specimen) Unknown EDT PM EDT Dejon Dey MD CHEMISTRY ORDERABLES Performing Organization Address City/[facility]/ZIP [facility] Phon e Number [address] Gold Tube HOLD (03/15/2019 7:51 PM EDT) P athologist Signature Gold Hold Sample in [facility]. [facility] Specimen Anatomical Collection Method Collection Time Receive d Time (Source) Location / / Volume Laterality Blood specimen Venous Draw / 03/15/2019 7:51 PM 2018 8:04 (specimen) Unknown EDT PM EDT Dejon Dey MD CHEMISTRY ORDERABLES Performing Organization Address City/[facility] Phon e Number [address] XR Chest PA or AP 1 view (03/15/2019 11:53 AM EDT) Anatomical Region Laterality Modality Chest N/A Digital Radiography Specimen (Source) Anatomical Location Collection Method / Collectio n Time Received Time / Laterality Volume Impressions 03/15/2019 11:57 AM EDT No acute cardiopulmonary process. I have personally reviewed the image(s) and the residents interpretation and agree with the findings, Jose butterfield 03/15/2019 11:57 AM Thank you for letting us participate in the care of this patient. For questions regarding this report, please contact e number below. ? Electronically signed by: Jose Montemayor [facility] ([phone]), at 03/15/2019 11:57 AM Narrative 03/15/2019 11:57 AM EDT EXAMINATION: XR CHEST PA OR AP 1 VIEW CLINICAL HISTORY: assess for airway narr owing for acute episode of respiratory distress now resolved TECHNIQUE: 1 view of the chest COMPARISON: None FINDINGS: The lungs are clear. The cardiomediastin al silhouette is within normal limits. No pneumothorax or large pleural effusio n. No significant osseous findings. Procedure Note Jose Montemayor MD - 03/15/2019Formatt ing of this note might be different from the original. EXAMINATION: XR CHEST PA OR AP 1 VIEW CLINICAL HISTORY: assess for airway narr owing for acute episode of respiratory distress now resolved TECHNIQUE: 1 view of the chest COMPARISON: None FINDINGS: The lungs are clear. The cardiomediastin al silhouette is within normal limits. No pneumothorax or large pleural effusio n. No significant osseous findings. IMPRESSION No acute cardiopulmonary process. I have personally reviewed the image(s) and the residents interpretation and agree with the findings, Jose butterfield 03/15/2019 11:57 AM Thank you for letting us participate in the care of this patient. For questions regarding this report, please contact e number below. Electronically signed by: Jose Montemayor [facility] ([phone]), at 03/15/2019 11:57 AM Mikaela Plunkett MD IMG DX ORDERABLES TSH (03/15/2019 2:23 AM EDT) P athologist Signature TSH 1.61 0.27 - 4.20 [facility] Specimen Anatomical Collection Method Collection Time Receive d Time (Source) Location / / Volume Laterality Blood specimen Venous Draw / 03/15/2019 2:23 AM 2018 4:44 (specimen) Unknown EDT AM EDT Resulting Agency Comment Spec In Lab Dejon Dey MD CHEMISTRY ORDERABLES Performing Organization Address City/State/[place] [address] Differential, Automated (03/15/2019 2:23 AM EDT) P athologist Signature Neutrophils % 50.7 % [facility] Neutr Abs (ANC) 3.77 1.70 - [facility] 6.10 [facility] x10(3)/[facility] LABORATORY Lymphocytes % 38.3 % [facility] Lymphocytes Abs 2.8 0.9 - 3.2 [facility] x10(3)/[facility] LABORATORY Monocytes % 8.0 % [facility] Monocyte Abs 0.6 0.3 - 0.9 [facility] x10(3)/[facility] LABORATORY Eosinophils % 2.3 % [facility] Eosinophils Abs 0.2 0.0 - 0.4 [facility] x10(3)/[facility] LABORATORY Basophils % 0.4 % [facility] Basophils Abs 0.0 0.0 - 0.1 [facility] x10(3)/[facility] LABORATORY Immature Gran % 0.30 % [facility] Comment: Immature granulocytes(IG's)percentage an d absolute count will include metamyelocytes, myelocytes, and promyelo cytes. Blood smears from CBCs yielding IG's will be scanned manually for concor dance. If this scan disagrees with the automated IG or if promyelocytes are not ed, a manual differential will be performed. Hedy Gran Abs 0.02 0.00 - 0.04 x10(3)/[facility] LABORATORY Specimen Anatomical Collection Method Collection Time Receive d Time (Source) Location / / Volume Laterality Blood specimen 03/15/2019 2:23 AM 019 2:33 (specimen) EDT AM EDT Resulting Agency Comment Spec In Lab Sofia Linn MD HEMATOLOGY ORDERABLES Performing Organization Address City/State/[place] [address] (ABNORMAL) Hemogram (03/15/2019 2:23 AM EDT) Analysis Performed At Patho logist Time Signature WBC 7.4 4.0 - 9.5 [facility] x10(3)/[facility] LABORATORY RBC 4.09 (L) 4.58 - JARRETT MUNA 5.54 [facility] x10(6)/[facility] LABORATORY Hemoglobin 13.6 (L) 13.7 - [facility] 16.5 gm/dL [facility] Hematocrit 39.1 (L) 40.5 - [facility] 48.5 % [facility] MCV 95.6 (H) 82.9 - [facility] 93.1 [facility] LABORATORY MCH 33.3 (H) 27.5 - JARRETT MUNA 32.1 pg [facility] LAB[facility] MCHC 34.8 32.0 - [facility] MUNA 35.7 gm/dL [facility] Platelets 195 145 - 357 [facility] x10(3)/[facility] LABORATORY RDWSD 41.4 36.0 - [facility] LABORATORY RDWCV 11.9 11.4 - [facility] 13.8 % [facility] LABORATORY MPV 9.4 7.6 - 12.9 [facility] LABORATORY nRBC % Auto 0.0 % [facility] LABORATORY nRBC Abs Auto 0.000 0.000 - [facility]000 [facility] x10(3)/[facility] LABORATORY Specimen Anatomical Collection Method Collection Time Receive d Time (Source) Location / / Volume Laterality Blood specimen 03/15/2019 2:23 AM 019 2:33 (specimen) EDT AM EDT Resulting Agency Comment Spec In Lab Sofia Linn MD HEMATOLOGY ORDERABLES Performing Organization Address City/State/[place] [address] (ABNORMAL) Basic Metabolic Panel (non-fasting) (03/15/2019 2:23 AM EDT) P athologist Signature Glucose Lvl 130 65 - 199 [facility] mg/dL [facility] LABORATORY Comment: Diabetes: >=200 mg/dL plus symp toms BUN 11 10 - 20 mg/dL [facility] LABORATORY Creatinine 0.85 0.80 - 1.50 mg/dL [facility] Sodium 143 135 - 145 mmol/L [facility] LABORATORY Potassium 3.8 3.5 - 5.0 mmol/L [facility] LABORATORY Comment: Please note: ??Patients with WBC >100,00 0 may have falsely elevated Potassium levels. ??For accurate Potassium quantif ication in these patients send serum separator tube (gold top) for subsequent determinations. ??Contact the Clinical Chemistry Laboratory if there are any qu estions. Chloride 108 (H) 98 - 107 mmol/L [facility] LABORATORY CO2 25 22 - 31 mmol/L [facility] LABORATORY Anion Gap 10 5 - 15 mmol/L [facility] LABORATORY Calcium 8.2 (L) 8.5 - 10.5 mg/dL [facility] LABORATORY Estimated GFR 107 >=60 mL/min/1.73 m?? [facility] LABORATORY Comment: The eGFR was calculated using the CKD-EP I equation. As with all creatinine based estimates of kidney function, eGFR values calculated with the CKD-EPI equation are not accurate in patients wi th acute kidney failure, extremes of body mass or the acutely ill. [email or web address] eGFR 125 >=60 mL/min/1.73 m?? [facility] LABORATORY Comment: The eGFR was calculated using the CKD-EP I equation. As with all creatinine based estimates of kidney function, eGFR values calculated with the CKD-EPI equation are not accurate in patients wi th acute kidney failure, extremes of body mass or the acutely ill. [email or web address] [place] Specimen Anatomical Collection Method Collection Time Receive d Time (Source) Location / / Volume Laterality Blood specimen 03/15/2019 2:23 AM 019 2:33 (specimen) EDT AM EDT Resulting Agency Comment Spec In Lab Mikaela Plunkett MD CHEMISTRY ORDERABLES Performing Organization Address City/State/[place] [address] Troponin (03/15/2019 2:23 AM EDT) P athologist Signature Troponin-T <0.01 0.00 - 0.00 [facility] ng/mL [facility] LABORATORY Comment: The 99th percentile for Troponin T is le ss than 0.01 ng/mL, any detectable cTnT concentration using this assay should be considered elevated. According to the third universal definit ion of myocardial infarction the following criteria with a clinical prese ntation consistent with acute myocardial ischemia meets the diagnosis for a myocardial infarction ([place]). Detection of a rise and/or fall of cTnT, with at least one value greater than the 99th percentile (> or = 0.01) and wi th at least one of the following ?? Symptoms of ischemia ?? New or presumed new significant ST-se gment-T wave (ST-T) changes or new left bundle branch block (LBBB) ?? Development of pathologic Q waves in the ECG ?? Imaging evidence of new loss of viabl e myocardium or new regional wall motion abnormality ?? Identification of an intracoronary th rombus by angiography or autopsy Samples for cTnT testing should be obtai maximilian serially upon first assessment and again 3 to 6 hours later. If the clinica l suspicion is high and previous samples have been negative an additional sample may be indicated. Reference: Third [place] Definition of Myocardial Infarction. Journal of the [place] [employer] 2012;60:1581-98 Specimen Anatomical Collection Method Collection Time Receive d Time (Source) Location / / Volume Laterality Blood specimen 03/15/2019 2:23 AM 019 2:33 (specimen) EDT AM EDT Resulting Agency Comment Spec In Lab Mikaela Plunkett MD CHEMISTRY ORDERABLES Performing Organization Address City/State/[place] [address] Hepatic Function Panel (03/15/2019 2:23 AM EDT) P athologist Signature Total Protein 6.2 6.1 - 8.0 [facility] gm/dL [facility] LAB[facility]ORY Albumin 3.9 3.2 - 5.2 [facility] gm/dL [facility] AST 19 0 - 39 [facility] unit/L [facility] ALT 42 0 - 55 [facility] unit/L [facility] Alk Phos 55 40 - 120 [facility] unit/L [facility] Total 0.2 0.2 - 1.3 [facility] Bilirubin mg/dL [facility] LABOR[facility] Bili, Direct 0.1 0.0 - 0.3 [facility] mg/dL [facility] LABORATORY Specimen Anatomical Collection Method Collection Time Receive d Time (Source) Location / / Volume Laterality Blood specimen 03/15/2019 2:23 AM 019 2:33 (specimen) EDT AM EDT Resulting Agency Comment Spec In Lab Mikaela Plunkett MD CHEMISTRY ORDERABLES Performing Organization Address City/[facility]/ZIP Code Phon e Number [address] Phosphorus (03/15/2019 2:23 AM EDT) P athologist Signature Phosphorus 3.7 2.5 - 4.5 [facility] mg/dL [facility] LABORATORY Specimen Anatomical Collection Method Collection Time Receive d Time (Source) Location / / Volume Laterality Blood specimen 03/15/2019 2:23 AM 019 2:33 (specimen) EDT AM EDT Resulting Agency Comment Spec In Lab Mikaela Plunkett MD CHEMISTRY ORDERABLES Performing Organization Address City/[facility]/[place]IP [place] [address] Magnesium (03/15/2019 2:23 AM EDT) P athologist Signature Magnesium 0.85 0.69 - 1.07 [facility] mmol/L [facility] LABORATORY Specimen Anatomical Collection Method Collection Time Receive d Time (Source) Location / / Volume Laterality Blood specimen 03/15/2019 2:23 AM 019 2:33 (specimen) EDT AM EDT Resulting Agency Comment Spec In Lab Mikaela Plunkett MD CHEMISTRY ORDERABLES Performing Organization Address City/[facility]/ZIP Code Phon e Number [address] Troponin (03/14/2019 9:58 PM EDT) P athologist Signature Troponin-T <0.01 0.00 - 0.00 [facility] ng/mL [facility] LAB[facility] Comment: The 99th percentile for Troponin T is le ss than 0.01 ng/mL, any detectable cTnT concentration using this assay should be considered elevated. According to the third universal definit ion of myocardial infarction the following criteria with a clinical prese ntation consistent with acute myocardial ischemia meets the diagnosis for a myocardial infarction ([place]). Detection of a rise and/or fall of cTnT, with at least one value greater than the 99th percentile (> or = 0.01) and wi th at least one of the following ?? Symptoms of ischemia ?? New or presumed new significant ST-se gment-T wave (ST-T) changes or new left bundle branch block (LBBB) ?? Development of pathologic Q waves in the ECG ?? Imaging evidence of new loss of viabl e myocardium or new regional wall motion abnormality ?? Identification of an intracoronary th rombus by angiography or autopsy Samples for cTnT testing should be obtai maximilian serially upon first assessment and again 3 to 6 hours later. If the clinica l suspicion is high and previous samples have been negative an additional sample may be indicated. Reference: Third [place] Definition of Myocardial Infarction. Journal of the [employer] 2012;60:1581-98 Specimen Anatomical Collection Method Collection Time Receive d Time (Source) Location / / Volume Laterality Blood specimen 03/14/2019 9:58 PM 019 (specimen) EDT 10:04 PM EDT Resulting Agency Comment Spec In Lab Mikaela Plunkett MD CHEMISTRY ORDERABLES Performing Organization Address City/State/[place] [address] EKG 12 Lead (03/14/2019 9:55 PM EDT) Component Value Ref Range Test Analysis Performed Pathologis t Method Time At Signature Ventricular rate 66 BPM MUSE SYSTEM Atrial Rate 66 BPM MUSE SYSTEM P-R Interval 180 ms MUSE SYSTEM QRS Duration 90 ms MUSE SYSTEM Q-T Interval 398 ms MUSE SYSTEM QTC Calculated 417 ms MUSE SYSTEM (Bezet) Calculated P Sharples 4 degrees MUSE SYSTEM Calculated R Sharples 69 degrees MUSE SYSTEM Calculated T Sharples 24 degrees MUSE SYSTEM INTERPRETATION Normal sinus rhythm MUSE SYSTEM Minimal voltage criteria for LVH, may be normal variant When compared with ECG of 14-MAR-2019 10:08, No significant change was found Confirmed by MD Milton, Brandyn ([id number]) on 03/15/2019 8:06:44 AM Specimen Anatomical Collection Method Collection Time Receive d Time (Source) Location / / Volume Laterality 03/14/2019 9:55 PM 9 8:06 EDT AM EDT Mikaela Plunkett MD ECG ORDERABLES Performing Organization Address City/State/ZIP Code Phon e Number [employer] [facility] CT Head wo Contrast (Generic) (03/14/2019 1:37 PM EDT) Anatomical Region Laterality Modality Head Computed Tomography Specimen (Source) Anatomical Location Collection Method / Collectio n Time Received Time / Laterality Volume Impressions 03/14/2019 3:11 PM EDT 1. ??No acute intracranial disease. Specifically, no evidence of acute infarction. 2. 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 Thank you for letting us participate in the care of this patient. For questions regarding this report, please contact e number below. ? Narrative 03/14/2019 3:11 PM EDT EXAMINATION: CT HEAD WO CONTRAST (GENERIC) CLINICAL HISTORY: Left sided head pain a nd weakness. assess for interval evidence of stroke since his head CT yes terday. He has a spinal stimulator that is not MRI compatable TECHNIQUE: CT head performed without intravenous co ntrast administration. COMPARISON: Head CT scan 03/13/2019 and CTA of the he ad and neck 03/13/2019 FINDINGS: No intracranial hemorrhage, mass, mass e ffect, hydrocephalus, midline shift, or large acute infarction. The subarachnoid spaces are normal. No significant osseous abnormality. The visualized port ions of the paranasal sinuses and mastoid air cells are clear. 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 Procedure Note Ольга Zavala MD - 03/14/2019Formatting o f this note might be different from the original. EXAMINATION: CT HEAD WO CONTRAST (GENERI C) CLINICAL HISTORY: Left sided head pain a nd weakness. assess for interval evidence of stroke since his head CT yes terday. He has a spinal stimulator that is not MRI compatable TECHNIQUE: CT head performed without intravenous co ntrast administration. COMPARISON: Head CT scan 03/13/2019 and CTA of the he ad and neck 03/13/2019 FINDINGS: No intracranial hemorrhage, mass, mass e ffect, hydrocephalus, midline shift, or large acute infarction. The subarachnoid spaces are normal. No significant osseous abnormality. The visualized port ions of the paranasal sinuses and mastoid air cells are clear. 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 IMPRESSION 1. No acute intracranial disease. Specif ically, no evidence of acute infarction. 2. Known fusiform aneurysm of the post P ICA V4 segment of the right vertebral artery is again seen. Thank you for letting us participate in the care of this patient. For questions regarding this report, please contact e number below. Electronically signed by: Ольга Zavala [facility] ([phone]), at 03/14/2019 3:11 PM Mikaela Plunkett MD IMG CT ORDERABLES EKG 12 Lead (03/14/2019 10:08 AM EDT) [facility] Method Time Signature Ventricular rate 71 BPM MUSE SYSTEM Atrial Rate 71 BPM MUSE SYSTEM P-R Interval 174 ms MUSE SYSTEM QRS Duration 92 ms MUSE SYSTEM Q-T Interval 380 ms MUSE SYSTEM QTC Calculated 412 ms MUSE SYSTEM (Bezet) Calculated P Sharples 8 degrees MUSE SYSTEM Calculated R Sharples 64 degrees MUSE SYSTEM Calculated T Sharples 22 degrees MUSE SYSTEM INTERPRETATION Normal sinus rhythm MUSE SYSTEM Minimal voltage criteria for LVH, may be normal variant Borderline ECG No previous ECGs available Confirmed by MD John, Rosas Apodaca ([id number]) on 03/14/2019 11:35:0 6 AM Specimen Anatomical Collection Method Collection Time Receive d Time (Source) Location / / Volume Laterality 03/14/2019 10:08 03/14/2019 AM EDT 11:35 AM EDT Mikaela Plunkett MD ECG ORDERABLES Performing Organization Address City/State/ZIP Code Phon e Number MUSE SYSTEM EEG awake, asleep, drowsy, routine (03/13/2019 9:46 PM EDT) Narrative Bro Guevara MD - 03/13/2019 9:46 P M EDT Bro Guevara MD ? 03/14/2019 ??5:27 PM [facility] Department of Neurology Inpatient EEG Report Name of the Patient: ??Jaswant Nice Date of : ?[birth year] Date of Service: ?03/13/2019 Referring physician: ?Heath Gandara BRIEF HISTORY: Jaswant Nice is a 43 y.o. year old patien t with altered mental state and possible seizure. MEDICATIONS: Current Facility-Administered Medication s Medication Dose Route Frequency Provider Last Rate Last Dose ? ? sodium chloride 0.9 % flush 5 mL ??5 mL Intravenous BID Sofia Linn MD ? sodium chloride 0.9 % flush 5-20 mL ??5-20 mL Intravenous Q1 Min PRN Sofia Linn MD ? lidocaine (XYLOCAINE) 10 mg/mL (1 %) injection 3 mg ??0.3 mL Subcutaneous Once PRN Sofia Linn MD ? senna-docusate (PERICOLACE) 8.6-50 mg per tablet 2 tablet ??2 tablet Oral BID Sofia Linn MD ? polyethylene glycol (MIRALAX) packet 17 g ??17 g Oral Daily Sofia Linn MD ? magnesium hydroxide (Milk of Magnesia) (240 mg/mL) oral liquid 10 mL ??10 mL Oral Nightly PRN Sid Linn MD ? bisacodyl (DULCOLAX) suppository 10 mg ??10 mg Rectal Daily PRN Sofia Linn MD ? labetalol (NORMODYNE,TRANDATE) injection 10-20 mg ??10-20 mg Intravenous Q15 Min PRN Sofia Linn MD ? enalaprilat (VASOTEC) injection ??1.25 mg Intravenous Q6H PRN Sofia Linn MD ? acetaminophen (TYLENOL) tablet 975 mg ??975 mg Oral Q6H PRN Sofia Linn MD ?? 975 mg at 03/13/19 1 637 Or ? ? acetaminophen (Tylenol) (32.02 mg/mL) oral liquid 975 mg ??975 mg Per G Tube Q6H PRN Sofia Linn MD ? Or ? ? acetaminophen (TYLENOL) suppository 975 mg ??975 mg Rectal Q6H PRN Sofia Linn MD ? sodium chloride 0.9% infusion ??1,000 mL Intravenous Continuous Sofia Linn MD ? enoxaparin (LOVENOX) injection 40 mg ??40 mg Subcutaneous Nightly Sofia Linn MD ? lidocaine (XYLOCAINE) 10 mg/mL (1 %) injection 100 mg ??10 mL Subcutaneous Once Sofia Linn MD ? METHODS: A 21 channel digitized electroencephalog mikie was performed in the [facility] Clinical Neurophysiology Laboratory. The 10/20 international system of electrode placement was used and bipolar and referential electrode montag es were recorded. ??In addition to EEG the patient was monitore d for EKG and lateral/vertical eye movements. Video wa s recorded during the session. The duration of the recording w as 35 minutes. WOMEN NURSE'S REPORT:Performed by: SB Patient was not sleep deprived. Sleep was attained. Photic stimulation was performed. Hyperventilation was not performed. Effo rt was was not adequate. Movement and other artifact was not sign ificant. Comments:Sweat Sways were throughout the recording and confirmed during clean up as the head wrap was soa ked. ELECTROENCEPHALOGRAPHER'S REPORT: Background During the awake state with the eyes mar sed the background consisted of a medium amplitude, 10 Hz p osterior reactive rhythm that attenuated appropriately with eye o pening. Beta activity was distributed diffusely with an anterior p redominance. There was a normal anterior-posterior voltage gradie nt. With eye opening the background activity changed to a low vol tage mixture of alpha, beta, and occasional theta range frequen cies. There were no significant asymmetries of background ac tivity noted. Sleep Stage II sleep was obtained and consiste d of symmetrical sleep spindles and vertex sharp waves. Hyperventilation Hyperventilation was not performed. Photic Stimulation Photic stimulation using a step[employer]ase in photic frequency varying from 1-21 Hertz did not result i n bilateral driving response. Also there is no appearance of abnormal activity. Abnormal EEG Activity Diffuse beta EKG EKG revealed normal sinus rhythm. PRIOR EEG: No previous EEG reports were available. INTERPRETATION/CLINICAL CORRELATION: This EEG is abnormal due to excess beta, likely from the sedative medication. No epileptiform discharges o r clinical seizures captured. ??Much of the recording was sp ent in sleep. Jeanie Grimes M.D Epilepsy Fellow Epilepsy pager [phone] Personal pager [phone] Neurology Attending I have personally reviewed the EEG, and I agree with the details as written. ?? The above report was form ulated in discussion with me at the time of EEG reading, and I agr ee with it as documented. Bro Guevara MD [place] [address] Pager: [phone], #[phone] Email: [email or web address] CC: Ryne Harris MD Mikaela Plunkett MD NEUROLOGY ORDERABLES XR Fluoro Lumbar Puncture (03/13/2019 7:07 PM EDT) Anatomical Region Laterality Modality L-spine N/A Radio Fluoroscopy Specimen (Source) Anatomical Location Collection Method / Collectio n Time Received Time / Laterality Volume Addenda Addendum by Ольга Zavala MD on 9 2:26 PM EDT --------ADDENDUM #1-------- CLINICAL HISTORY: ??Severe headache and left sided weakness/numbness, evaluate for SAH. Thank you for letting us participate in the care of this patient. For questions regarding this report, please contact e number below. ? Electronically signed by: Ольга Zavala [facility] ([phone]), at 03/22/2019 2:21 PM --------ORIGINAL REPORT -------- EXAMINATION: XR FLUORO LUMBAR PUNCTURE D IAGNOSIS CLINICAL HISTORY: evaluate for SAH TECHNIQUE: After an extensive discussion with the patient regarding the risks and benefits of the procedure, informed written and verbal consent were obtained. With the patient positioned pr one on the fluoroscopy table, the L3-L4 interspace was localized using physical landmarks and fluoroscopy. The overlying skin was then prepped and draped [facility]. A preprocedural timeout was performed per [facility] protocol. The patient's skin was anesthetized using less than 5 cc of 1% lidocaine wit hout epinephrine. A 20-gauge, 3 1/2 inch spinal needle was advanced into the suba rachnoid space, which was confirmed with return of clear cerebral spinal fluid. O pening pressure was not measured. A total of 9 cc of clear cerebral spinal f luid was collected and divided into four tubes. These tubes were sent for laborat ory analysis, as per the ordering physician. After the fluid was collected , the stylet was replaced and the spinal needle removed. There were no immediate complications. The patient was instructed to lie flat f or one hour following this procedure. COMPARISON: Lumbar radiographs dated 09/01/2008. FINDINGS: 9 cc of clear cerebrospinal fl uid. FLUOROSCOPY TIME: 0.07 minutes IMPRESSION: Successful fluoroscopically-guided lumba r puncture without immediate complication. 9 cc of clear CSF were sen t to the laboratory for evaluation. I was present for the critical portions of the procedure and was immediately available at all times. I have personally reviewed the image(s) and the residents interpretation and agree with the findings, Ольга Zavala at 8:23 PM Thank you for letting us participate in the care of this patient. For questions regarding this report, please contact e number below. ? Addendum by Ольга Zavala MD on 9 8:36 AM EDT --------ADDENDUM #1-------- CLINICAL HISTORY: ??Severe headache and left sided weakness/numbness, evaluate for SAH. --------ORIGINAL REPORT -------- EXAMINATION: XR FLUORO LUMBAR PUNCTURE D IAGNOSIS CLINICAL HISTORY: evaluate for SAH TECHNIQUE: After an extensive discussion with the patient regarding the risks and benefits of the procedure, informed written and verbal consent were obtained. With the patient positioned pr one on the fluoroscopy table, the L3-L4 interspace was localized using physical landmarks and fluoroscopy. The overlying skin was then prepped and draped in a [facility] surgical fashion. A preprocedural timeout was performed per [facility] protocol. The patient's skin was anesthetized using less than 5 cc of 1% lidocaine wit hout epinephrine. A 20-gauge, 3 1/2 inch spinal needle was advanced into the suba rachnoid space, which was confirmed with return of clear cerebral spinal fluid. O pening pressure was not measured. A total of 9 cc of clear cerebral spinal f luid was collected and divided into four tubes. These tubes were sent for laborat ory analysis, as per the ordering physician. After the fluid was collected , the stylet was replaced and the spinal needle removed. There were no immediate complications. The patient was instructed to lie flat f or one hour following this procedure. COMPARISON: Lumbar radiographs dated 09/01/2008. FINDINGS: 9 cc of clear cerebrospinal fl uid. FLUOROSCOPY TIME: 0.07 minutes IMPRESSION: Successful fluoroscopically-guided lumba r puncture without immediate complication. 9 cc of clear CSF were sen t to the laboratory for evaluation. I was present for the critical portions of the procedure and was immediately available at all times. I have personally reviewed the image(s) and the residents interpretation and agree with the findings, Ольга Zavala at 8:23 PM Thank you for letting us participate in the care of this patient. For questions regarding this report, please contact e number below. ? Electronically signed by: Ольга Zavala [facility] ([phone]), at 03/13/2019 8:23 PM Impressions 03/13/2019 8:23 PM EDT Successful fluoroscopically-guided lumbar puncture without immediate complication. 9 cc of clear CSF were sen t to the laboratory for evaluation. I was present for the critical portions of the procedure and was immediately available at all times. I have personally reviewed the image(s) and the residents interpretation and agree with the findings, Ольга Zavala at 8:23 PM Thank you for letting us participate in the care of this patient. For questions regarding this report, please contact e number below. ? Electronically signed by: Ольга Zavala [facility] ([phone]), at 03/13/2019 8:23 PM Narrative 03/13/2019 8:23 PM EDT EXAMINATION: XR FLUORO LUMBAR PUNCTURE DIAGNOSIS CLINICAL HISTORY: evaluate for SAH TECHNIQUE: After an extensive discussion with the patient regarding the risks and benefits of the procedure, informed written and verbal consent were obtained. With the patient positioned pr one on the fluoroscopy table, the L3-L4 interspace was localized using physical landmarks and fluoroscopy. The overlying skin was then prepped and draped in a [facility] surgical fashion. A preprocedural timeout was performed per [facility] protocol. The patient's skin was anesthetized using less than 5 cc of 1% lidocaine wit hout epinephrine. A 20-gauge, 3 1/2 inch spinal needle was advanced into the suba rachnoid space, which was confirmed with return of clear cerebral spinal fluid. O pening pressure was not measured. A total of 9 cc of clear cerebral spinal f luid was collected and divided into four tubes. These tubes were sent for laborat ory analysis, as per the ordering physician. After the fluid was collected , the stylet was replaced and the spinal needle removed. There were no immediate complications. The patient was instructed to lie flat f or one hour following this procedure. COMPARISON: Lumbar radiographs dated 09/01/2008. FINDINGS: 9 cc of clear cerebrospinal fl uid. FLUOROSCOPY TIME: 0.07 minutes Procedure Note Ольга Zavala MD - 03/13/2019Formatting o f this note might be different from the original. EXAMINATION: XR FLUORO LUMBAR PUNCTURE D IAGNOSIS CLINICAL HISTORY: evaluate for SAH TECHNIQUE: After an extensive discussion with the patient regarding the risks and benefits of the procedure, informed written and verbal consent were obtained. With the patient positioned pr one on the fluoroscopy table, the L3-L4 interspace was localized using physical landmarks and fluoroscopy. The overlying skin was then prepped and draped in a st erile surgical fashion. A preprocedural timeout was performed per [facility] protocol. The patient's skin was anesthetized using less than 5 cc of 1% lidocaine wit hout epinephrine. A 20-gauge, 3 1/2 inch spinal needle was advanced into the suba rachnoid space, which was confirmed with return of clear cerebral spinal fluid. O pening pressure was not measured. A total of 9 cc of clear cerebral spinal f luid was collected and divided into four tubes. These tubes were sent for laborat ory analysis, as per the ordering physician. After the fluid was collected , the stylet was replaced and the spinal needle removed. There were no immediate complications. The patient was instructed to lie flat f or one hour following this procedure. COMPARISON: Lumbar radiographs dated 09/01/2008. FINDINGS: 9 cc of clear cerebrospinal fl uid. FLUOROSCOPY TIME: 0.07 minutes IMPRESSION Successful fluoroscopically-guided lumba r puncture without immediate complication. 9 cc of clear CSF were sen t to the laboratory for evaluation. I was present for the critical portions of the procedure and was immediately available at all times. I have personally reviewed the image(s) and the residents interpretation and agree with the findings, Ольга Zavala at 8:23 PM Thank you for letting us participate in the care of this patient. For questions regarding this report, please contact e number below. Mikaela Plunkett MD IMG FLUORO ORDERABLES Miscellaneous Lab request (03/13/2019 7:00 PM EDT) [facility] gist Method Time Signature [facility] [place] [facility] Result received in [facility]. HOSPITAL LABORATORY Specimen (Source) Anatomical Collection Method Collection Time Re ceived Time Location / / Volume Laterality Cerebrospinal fluid 03/13/2019 7:00 03/13 sample (specimen) PM EDT 7:15 PM ED T Resulting Agency Comment Spec In Lab Mikaela Plunkett MD HEMATOLOGY ORDERABLES Performing Organization Address City/State/[place] [address] CSF Cell Count (03/13/2019 6:32 PM EDT) P athologist Signature Tube # Ct CSF 4 [facility] Nucleated CSF 1 0 - 5 /mcl [facility] LABORATORY Comment: If Nucleated CSF CT result equals Zero, no smear is made and no Differential is performed. If Nucleated CSF CT result is 1-5 / mcL, a smear is made and scanned but no results are reported unless abnormalitie s are noted. If Nucleated CSF CT result is 6 /mcL or greater, a smear is made and manual differential is performed and reported. Nucleated CSF CT results on a CSF fluid must be correlated with clinical condition. RBC CSF CT 0 /mcl [facility] Specimen (Source) Anatomical Collection Method Collection Time Re ceived Time Location / / Volume Laterality Cerebrospinal fluid 03/13/2019 6:32 03/13 sample (specimen) PM EDT 7:15 PM ED T Resulting Agency Comment Spec In Lab Sofia Linn MD BODY FLUIDS AND STOOLS ORDER KAJAL Performing Organization Address [facility] Phon e Number [address] CSF DESC 4 (03/13/2019 6:32 PM EDT) Patholo gist Method Time Signature Tube Num CSF 4 [facility]4 [facility] Color CSF #4 Colorless Colorless [facility] Appear CSF #4 Clear Clear [facility] Tot Vol CSF #4 2.7 mL [facility] Specimen (Source) Anatomical Collection Method Collection Time Re ceived Time Location / / Volume Laterality Cerebrospinal fluid 03/13/2019 6:32 03/13 sample (specimen) PM EDT 7:15 PM ED T Resulting Agency Comment Spec In Lab Sofia Linn MD BODY FLUIDS AND STOOLS ORDER KAJAL Performing Organization Address [facility] Phon e Number [address] CSF DESC 3 (03/13/2019 6:32 PM EDT) Patholo gist Method Time Signature Tube Num CSF 3 [facility]3 [facility] Color CSF #3 Colorless Colorless [facility] Appear CSF #3 Clear Clear [facility] Tot Vol CSF #3 2.1 mL [facility] Specimen (Source) Anatomical Collection Method Collection Time Re ceived Time Location / / Volume Laterality Cerebrospinal fluid 03/13/2019 6:32 03/13 sample (specimen) PM EDT 7:15 PM ED T Resulting Agency Comment Spec In Lab Sofia Linn MD BODY FLUIDS AND STOOLS ORDER KAJAL Performing Organization Address [facility]/ZIP Code Phon e Number [address] CSF DESC 2 (03/13/2019 6:32 PM EDT) Patholo gist Method Time Signature Tube Num CSF 2 [facility] #2 [facility] Color CSF #2 Colorless Colorless [facility] Appear CSF #2 Clear Clear [facility] Tot Vol CSF #2 2.5 mL [facility] Specimen (Source) Anatomical Collection Method Collection Time Re ceived Time Location / / Volume Laterality Cerebrospinal fluid 03/13/2019 6:32 03/13 sample (specimen) PM EDT 7:15 PM ED T Resulting Agency Comment Spec In Lab Sofia Linn MD BODY FLUIDS AND STOOLS ORDER KAJAL Performing Organization Address City/[facility]/ZIP Code Phon e Number [address] CSF DESC 1 (03/13/2019 6:32 PM EDT) Patholo Travolver Method Time Signature Tube Num CSF 1 [facility]1 [facility] Color CSF #1 Colorless Colorless [facility] Appear CSF #1 Clear Clear [facility] Tot Vol CSF #1 2.8 mL [facility] Specimen (Source) Anatomical Collection Method Collection Time Re ceived Time Location / / Volume Laterality Cerebrospinal fluid 03/13/2019 6:32 03/13 sample (specimen) PM EDT 7:15 PM ED T Resulting Agency Comment Spec In Lab Sofia Linn MD BODY FLUIDS AND STOOLS ORDER KAJAL Performing Organization Address City/[facility]/[place] [address] CSF Culture (03/13/2019 6:32 PM EDT) Component Value Ref Test Analysis Performed At Patholo gist Range Method Time Signature Central No growth [facility] LABORATORY Gram Stain Cytocentrifuge Gram Stain performed [facility] No Neutrophils seen. [facility] No microorganisms seen. [facility] LABORATORY Specimen (Source) Anatomical Collection Method Collection Time Re ceived Time Location / / Volume Laterality Cerebrospinal fluid 03/13/2019 6:32 03/13 sample (specimen) PM EDT 7:31 PM ED T Resulting Agency Comment Spec In Lab Mikaela Plunkett MD MICROBIOLOGY - GENERAL ORDER KAJAL Performing Organization Address [facility]/ZIP Code Phon e Number [address] Glucose Level CSF (03/13/2019 6:32 PM EDT) P athologist Signature Glucose, CSF 67 mg/dL [facility] Comment: CSF at equilibrium equals appro ximately 60-80% of plasma glucose. Specimen (Source) Anatomical Collection Method Collection Time Re ceived Time Location / / Volume Laterality Cerebrospinal fluid 03/13/2019 6:32 03/13 sample (specimen) PM EDT 7:15 PM ED T Resulting Agency Comment Spec In Lab Mikaela Plunkett MD BODY FLUIDS AND STOOLS ORDER KAJAL Performing Organization Address City/[facility]/ZIP Code Phon e Number [address] Protein Level CSF (03/13/2019 6:32 PM EDT) P athologist Signature T Protein, CSF 33 15 - 45 [facility] mg[facility]dL [facility] Xanthochromia Neg [facility] Specimen (Source) Anatomical Collection Method Collection Time Re ceived Time Location / / Volume Laterality Cerebrospinal fluid 03/13/2019 6:32 03/13 sample (specimen) PM EDT 7:15 PM ED T Resulting Agency Comment Spec In Lab Mikaela Plunkett MD BODY FLUIDS AND STOOLS ORDER KAJAL Performing Organization Address City/[facility]/ZIP Code Phon e Number [address] Urinalysis Microscopic Exam (03/13/2019 6:01 PM EDT) P athologist Signature RBC UA 1 0 - 3 /HPF [facility] WBC UA 2 0 - 3 /HPF [facility] Squam Epith UA 1 <=4 /HPF [facility] Hyaline Cast 2 0 - 2 /LPF [facility] LABORATORY Specimen (Source) Anatomical Collection Method Collection Time Re ceived Time Location / / Volume Laterality Urine specimen 03/13/2019 6:01 03/13/2019 6:18 obtained by clean PM EDT PM EDT catch procedure (specimen) Resulting Agency Comment Spec In Lab Sofia Linn MD URINE ORDERABLES Performing Organization Address City/[facility]/ZIP Code Phon e Number [address] Urine Hold (03/13/2019 6:01 PM EDT) P athologist Signature Urine Hold Sample in [facility]. [facility] Specimen Anatomical Collection Method Collection Time Receive d Time (Source) Location / / Volume Laterality Urine specimen Urine / Unknown 03/13/2019 6:01 PM 03/01 6:18 (specimen) EDT PM EDT Sofia Linn MD URINE ORDERABLES Performing Organization Address City/[facility]/ZIP Code Phon e Number [address] (ABNORMAL) Urinalysis with reflex Culture (03/13/2019 6:01 PM EDT) Patholo gist Method Time Signature Glucose UA Negative Negative [facility] mg/dL [facility] Protein UA 30 (A) Negative [facility] mg/dL [facility] Bilirubin UA Negative Negative [facility] mg/dL [facility] Comment: Clinical correlation required for positi ve Urine Bilirubin results as false positive may occur with some drugs and d rug related products. If a false positive is suspected a serum total bili ross should be considered if clinically indicated. Urobilinogen UA Normal Normal mg/dL [facility] pH UA 5.0 5.0 - 8.0 [facility] LABORATORY Blood UA Negative Negative mg/dL [facility] Ketones UA Negative Negative mg/dL [facility] Nitrite UA Negative Negative [facility] Leukocytes UA Negative Negative [facility] LABORATORY Appearance UA Hazy (A) Clear [facility] Spec [place] UA >1.035 (H) 1.002 - 1.030 [facility] Color UA Yellow Yellow [facility] LABORATORY Culture Reflexed No [facility] Specimen (Source) Anatomical Collection Method Collection Time Re ceived Time Location / / Volume Laterality Urine specimen 03/13/2019 6:01 03/13/2019 6:18 obtained by clean PM EDT PM EDT catch procedure (specimen) Resulting Agency Comment Spec In Lab Mikaela Plunkett MD URINE ORDERABLES Performing Organization Address City/State/ZIP Code Phon e Number [address] Sedimentation rate (03/13/2019 4:20 PM EDT) P athologist Signature Sed Rate 4 0 - 15 [facility] mm/hr [facility] Specimen Anatomical Collection Method Collection Time Receive d Time (Source) Location / / Volume Laterality Blood specimen Venous Draw / 03/13/2019 4:20 PM 2018 4:35 (specimen) Unknown EDT PM EDT Resulting Agency Comment Spec In Lab Dejon Dey MD HEMATOLOGY ORDERABLES Performing Organization Address City/State/ZIP Code Phon e Number [address] (ABNORMAL) BMP w/fasting Glucose (03/13/2019 4:20 PM EDT) P athologist Signature Glucose 116 (H) 65 - 99 [facility] Fasting mg/dL [facility] Comment: ?Fasting* Glucose Interpretive C riteria Normal ?65-99 mg/dL Impaired Fasting glucose ?100-125 mg/dL Consistent with Diabetes Mellitus ? >or= 126 mg/dL *Fasting is defined as no caloric intake for at least 8 hours In the absence of unequivocal hypergly cemia a plasma glucose value of >or= 126 mg/dL should be repeated on a subseq uent day. Diagnosis and Classification of Diabetes Mellitus, Position Statement from the [employer]. ??Diabete s Care, Volume 33, Supplement 1, Dec 2009 BUN 13 10 - 20 mg/dL [facility] Creatinine 0.90 0.80 - 1.50 mg/dL [facility] Sodium 141 135 - 145 mmol/L [facility] Potassium 3.8 3.5 - 5.0 mmol/L [facility] Comment: Please note: ??Patients with WBC >100,00 0 may have falsely elevated Potassium levels. ??For accurate Potassium quantif ication in these patients send serum separator tube (gold top) for subsequent determinations. ??Contact the Clinical Chemistry Laboratory if there are any qu estions. Chloride 104 98 - 107 mmol/L [facility] CO2 25 22 - 31 mmol/L [facility] Anion Gap 12 5 - 15 mmol/L [facility] Calcium 8.9 8.5 - 10.5 mg/dL [facility] Estimated GFR 105 >=60 mL/min/1.73 m?? [facility] Comment: The eGFR was calculated using the CKD-EP I equation. As with all creatinine based estimates of kidney function, eGFR values calculated with the CKD-EPI equation are not accurate in patients wi th acute kidney failure, extremes of body mass or the acutely ill. [email or web address] CITYnkf eGFR 122 >=60 mL/min/1.73 m?? [facility] Comment: The eGFR was calculated using the CKD-EP I equation. As with all creatinine based estimates of kidney function, eGFR values calculated with the CKD-EPI equation are not accurate in patients wi th acute kidney failure, extremes of body mass or the acutely ill. [email or web address] Specimen Anatomical Collection Method Collection Time Receive d Time (Source) Location / / Volume Laterality Blood specimen 03/13/2019 4:20 PM 019 4:35 (specimen) EDT PM EDT Resulting Agency Comment Spec In Lab Sofia Linn MD CHEMISTRY ORDERABLES Performing Organization Address City/[facility]/ZIP Code Phon e Number [place] [id number]OS[address] LAB[address]ORY [address] Differential, Automated (03/13/2019 4:20 PM EDT) P athologist Signature Neutrophils % 62.6 % [facility] Neutr Abs (ANC) 4.94 1.70 - [facility] 6.10 [facility] x10(3)/[facility] LABORATORY Lymphocytes % 28.6 % [facility] Lymphocytes Abs 2.2 0.9 - 3.2 [facility] x10(3)/[facility] LABORATORY Monocytes % 7.0 % [facility] Monocyte Abs 0.6 0.3 - 0.9 [facility] x10(3)/[facility] LABORATORY Eosinophils % 1.0 % [facility] Eosinophils Abs 0.1 0.0 - 0.4 [facility] x10(3)/[facility] LABORATORY Basophils % 0.5 % [facility] Basophils Abs 0.0 0.0 - 0.1 [facility] x10(3)/[facility] LABORATORY Immature Gran % 0.30 % [facility] Comment: Immature granulocytes(IG's)percentage an d absolute count will include metamyelocytes, myelocytes, and promyelo cytes. Blood smears from CBCs yielding IG's will be scanned manually for concor dance. If this scan disagrees with the automated IG or if promyelocytes are not ed, a manual differential will be performed. Hedy Gran Abs 0.02 0.00 - 0.04 x10(3)/[facility] LABORATORY Specimen Anatomical Collection Method Collection Time Receive d Time (Source) Location / / Volume Laterality Blood specimen 03/13/2019 4:20 PM 019 4:35 (specimen) EDT PM EDT Resulting Agency Comment Spec In Lab Sofia Linn MD HEMATOLOGY ORDERABLES Performing Organization Address City/[facility]/[place] [address] (ABNORMAL) Hemogram (03/13/2019 4:20 PM EDT) Analysis Performed At Patho logist Time Signature WBC 7.9 4.0 - 9.5 [facility] x10(3)/[facility] LABORATORY RBC 4.55 (L) 4.58 - JARRETT WOODWARDMUNA 5.54 [facility] x10(6)/[facility] LABORATORY Hemoglobin 14.4 13.7 - [facility] 16.5 gm/dL [facility] Hematocrit 42.3 40.5 - [facility] 48.5 % [facility] MCV 93.0 82.9 - [facility] 93.1 [facility] LABORATORY MCH 31.6 27.5 - [facility] 32.1 pg [facility] MCHC 34.0 32.0 - [facility] 35.7 gm/dL [facility] Platelets 236 145 - 357 [facility] x10(3)/[facility] LABORATORY RDWSD 42.3 36.0 - [facility] MUNA 45.0 [facility] LABORATORY RDWCV 12.3 11.4 - [facility] MUNA 13.8 % [facility] LAB[facility] MPV 9.1 7.6 - 12.9 [facility] nRBC % Auto 0.0 % [facility] nRBC Abs Auto 0.000 0.000 - J[facility]RETT [facility] 0.000 [facility] x10(3)/[facility] LABORATORY Specimen Anatomical Collection Method Collection Time Receive d Time (Source) Location / / Volume Laterality Blood specimen 03/13/2019 4:20 PM 019 4:35 (specimen) EDT PM EDT Resulting Agency Comment Spec In Lab Sofia Linn MD HEMATOLOGY ORDERABLES Performing Organization Address City/State/[place] [address] Calcium (03/13/2019 4:20 PM EDT) P athologist Signature Calcium 8.9 8.5 - 10.5 J[facility]RETT [facility]NA mg/dL [facility] Specimen Anatomical Collection Method Collection Time Receive d Time (Source) Location / / Volume Laterality Blood specimen 03/13/2019 4:20 PM 019 4:35 (specimen) EDT PM EDT Resulting Agency Comment Spec In Lab Mikaela Plunkett MD CHEMISTRY ORDERABLES Performing Organization Address City/[facility]/ZIP Code Phon e Number [address] Triglyceride (03/13/2019 4:20 PM EDT) athologist Signature Triglycerides 141 mg/dL [facility] Comment: Average Risk/Lower Risk: <150 mg/dL Borderline High Risk: 150-199 mg/dL High Risk: 200-499 mg/dL Very High Risk: >mc=764 mg/dL Specimen Anatomical Collection Method Collection Time Receive d Time (Source) Location / / Volume Laterality Blood specimen 03/13/2019 4:20 PM 019 4:35 (specimen) EDT PM EDT Resulting Agency Comment Spec In Lab Mikaela Plunkett MD CHEMISTRY ORDERABLES Performing Organization Address City/[facility] Phon e Number [address] HDL/Cholesterol Profile (03/13/2019 4:20 PM EDT) athologist Signature Chol, Total 188 mg/dL [facility] Comment: Lower Risk: <200 mg/dL Average Risk: 200-239 mg/dL Higher Risk: >fd=918 mg/dL HDL 37 mg/dL [facility] LABORATORY Comment: Males: ?? Higher Risk: <40 mg/dL Females: ?? HIgher Risk: <50 mg/dL Chol/HDL Ratio 5.1 ratio [facility] Chol/HDL Interpretation See Note [facility] LAB[facility] Comment: Lipid management should be guided by a p atient? s ASCVD risk, goals and preferences. ACC/AHA Guidelines recommend high intens ity statin if clinical ASCVD or LDL greater than or equal to 190 mg/dL. [email or web address] Measure LDL if Total Cholesterol minus H DL Cholesterol is greater than 220 mg/dL. Adults aged 40-75 with LDL 70-189 mg/dL should have their 10 year ASCVD risk estimated with the ACC/AHA ASCVD risk es timator http://tools.acc.org/EOVDO-Wtvr-Xqqvayda r/ Statin should be discussed if risk great er than or equal to 7.5% in non-diabetics. With diabetes, moderate i ntensity statin is recommended if risk less than 7.5%, high intensity if risk g reater than or equal to 7.5%. Annual lipid monitoring on statins is no t necessary. Lifestyle modification is a critical com ponent of ASCVD risk reduction. Specimen Anatomical Collection Method Collection Time Receive d Time (Source) Location / / Volume Laterality Blood specimen 03/13/2019 4:20 PM 019 4:35 (specimen) EDT PM EDT Resulting Agency Comment Spec In Lab Mikaela Plunkett MD CHEMISTRY ORDERABLES Performing Organization Address City/[facility]/ZIP Code Phon e Number [address] LDL Cholesterol, Direct (03/13/2019 4:20 PM EDT) athologist Signature LDL Chol 149 mg/dL [facility] LABORATORY Comment: Lowest Risk: <100 mg/dL Lower Risk: 100-129 mg/dL Borderline High Risk: 130-159 mg/dL High Risk: 160-189 mg/dL Very High Risk: >gq=146 mg/dL Specimen Anatomical Collection Method Collection Time Receive d Time (Source) Location / / Volume Laterality Blood specimen 03/13/2019 4:20 PM 019 4:35 (specimen) EDT PM EDT Resulting Agency Comment Spec In Lab Mikaela Plunkett MD CHEMISTRY ORDERABLES Performing Organization Address City/[facility] [place] [address] Hemoglobin A1c (03/13/2019 4:20 PM EDT) P athologist Signature Hemoglobin A1C 5.3 4.3 - 5.6 [facility] LAB[facility] Comment: Reference Range: 4.3 - 5.6% 5.7 - 6.4% - Increased Risk of Developin g Diabetes Mellitus >= 6.5% - Consistent with diagnosis of D iabetes Mellitus In the absence of hyperglycemia (i.e. pl asma glucose > 200 mg/dL) or classic symptoms of hyperglycemia a repeat measu rement of HbA1c should be performed on a separate sample to confirm the diagnos is. Diagnosis and Classification of Diabetes Mellitus, Diabetes Care 2013; 36: Suppl. 1, S67-75 Est Avg Gluc 105 mg/dL [facility] HENDERSON [facility] Comment: eAG equivalents for HbA1c percentages: HbA1c(%) ?eAG(mg/dL) 6.0 ?126 6.5 ?140 7.0 ?154 7.5 ?169 8.0 ?183 8.5 ?197 9.0 ?212 9.5 ?226 10.0 ? 240 Limitations: The eAG calculation has not been validated on women, individuals below 18 years old and above 70 years old, and individuals with hemoglobinopathies. Additional resources are available on [facility] ADA website. Allan LOPEZ, Sumit J, Luis R, et al. ??Tr anslating the A1C assay into estimated average glucose values. ??Diabetes Care 2008:31(8):3543-2375. Specimen Anatomical Collection Method Collection Time Receive d Time (Source) Location / / Volume Laterality Blood specimen 03/13/2019 4:20 PM 019 4:35 (specimen) EDT PM EDT Resulting Agency Comment Spec In Lab Mikaela Plunkett MD CHEMISTRY ORDERABLES Performing Organization Address City/State/ZIP Code Phon [place] [address] Troponin (03/13/2019 4:20 PM EDT) athologist Signature Troponin-T <0.01 0.00 - 0.00 JARRETT HENDERSON ng/mL [facility] Comment: The 99th percentile for Troponin T is le ss than 0.01 ng/mL, any detectable cTnT concentration using this assay should be considered elevated. According to the third universal definit ion of myocardial infarction the following criteria with a clinical prese ntation consistent with acute myocardial ischemia meets the diagnosis for a myocardial infarction ([place]). Detection of a rise and/or fall of cTnT, with at least one value greater than the 99th percentile (> or = 0.01) and wi th at least one of the following ?? Symptoms of ischemia ?? New or presumed new significant ST-se gment-T wave (ST-T) changes or new left bundle branch block (LBBB) ?? Development of pathologic Q waves in the ECG ?? Imaging evidence of new loss of viabl e myocardium or new regional wall motion abnormality ?? Identification of an intracoronary th rombus by angiography or autopsy Samples for cTnT testing should be obtai maximilian serially upon first assessment and again 3 to 6 hours later. If the clinica l suspicion is high and previous samples have been negative an additional sample may be indicated. Reference: Third [place] Definition of Myocardial Infarction. Journal of the [place] [employer] 2012;60:1581-98 Specimen Anatomical Collection Method Collection Time Receive d Time (Source) Location / / Volume Laterality Blood specimen 03/13/2019 4:20 PM 019 4:35 (specimen) EDT PM EDT Resulting Agency Comment Spec In Lab Mikaela Plunkett MD CHEMISTRY ORDERABLES Performing Organization Address City/State/[place] [address] (ABNORMAL) Hepatic Function Panel (03/13/2019 4:20 PM EDT) P athologist Signature Total Protein 6.8 6.1 - 8.0 [facility] gm/dL [facility] Albumin 4.3 3.2 - 5.2 JARRETT MUNA gm/dL [facility] AST 41 (H) 0 - 39 [facility] unit/L [facility] ALT 55 0 - 55 [facility] unit/L [facility] Alk Phos 58 40 - 120 [facility] unit/L [facility] Total 0.9 0.2 - 1.3 JARRETT KRISHNANCOCK Bilirubin mg/dL [facility] Bili, Direct 0.2 0.0 - 0.3 JARRETT MUNA mg/dL [facility] Specimen Anatomical Collection Method Collection Time Receive d Time (Source) Location / / Volume Laterality Blood specimen 03/13/2019 4:20 PM 019 4:35 (specimen) EDT PM EDT Resulting Agency Comment Spec In Lab iMkaela Plunkett MD CHEMISTRY ORDERABLES Performing Organization Address City/[facility]/ZIP Code Phon e Number [address] Phosphorus (03/13/2019 4:20 PM EDT) P athologist Signature Phosphorus 3.1 2.5 - 4.5 JARRETT WOODWARDMUNA mg/dL [facility] Specimen Anatomical Collection Method Collection Time Receive d Time (Source) Location / / Volume Laterality Blood specimen 03/13/2019 4:20 PM 019 4:35 (specimen) EDT PM EDT Resulting Agency Comment Spec In Lab Mikaela Plunkett MD CHEMISTRY ORDERABLES Performing Organization Address City/[facility]/ZIP Code Phon e Number [address] Magnesium (03/13/2019 4:20 PM EDT) P athologist Signature Magnesium 0.76 0.69 - 1.07 [facility] mmol/L [facility] Specimen Anatomical Collection Method Collection Time Receive d Time (Source) Location / / Volume Laterality Blood specimen 03/13/2019 4:20 PM 019 4:35 (specimen) EDT PM EDT Resulting Agency Comment Spec In Lab Mikaela Plunkett MD CHEMISTRY ORDERABLES Performing Organization Address City/[facility]/ZIP [facility] Phon e Number [address] documented in this encounter Visit Diagnoses Diagnosis TIA (transient ischemic attack) Unspecified transient cerebral ischemia Chest pain, unspecified type Acute nonintractable headache, unspecifi ed headache type Headache documented in this encounter Admitting Diagnoses Diagnosis Headache documented in this encounter Administered Medications Inactive Administered Medications - up to 3 most recent administrations Medication Order MAR Action Action Date Dose Rate Site acetaminophen (TYLENOL) tablet 650 Given 03/18/2019 8:20 AM EDT 650 mg mg 650 mg, Oral, EVERY 6 HOURS, First dose on Fri03/14/19 at 1800, Until Discontinued, Maximum dose of acetaminophen is 4000 mg from all sources in 24 hours., Routine Given 03/17/2019 8:15 PM EDT 650 mg Given 03/17/2019 1:49 PM EDT 650 mg acetaminophen (TYLENOL) tablet 975 mg Given 03/14/2019 1:19 PM EDT 975 mg 975 mg, Oral, EVERY 6 HOURS PRN, Starting on 03/13/19 at 1619, Until 03/14/19 at 1551, Pain, Fever, pain or temperature greater than 100 degrees F (measured by mouth), Maximum dose of acetaminophen is 4000 mg from all sources in 24 hours., Routine Given 03/14/2019 5:30 AM EDT 975 mg Given 03/13/2019 4:37 PM EDT 975 mg amLODIPine (NORVASC) tablet 10 mg Given 03/18/2019 8:20 AM EDT 10 mg 10 mg, Oral, DAILY, First dose (after last modification) on Fri03/17/19 at 0900, Until Discontinued, Routine Given 03/17/2019 8:11 AM EDT 10 mg amLODIPine (NORVASC) tablet 5 mg Given 03/16/2019 8:08 AM EDT 5 mg 5 mg, Oral, DAILY, First dose on Fri03/16/19 at 0900, Until Discontinued, Routine amLODIPine (NORVASC) tablet 5 mg Given 03/16/2019 9:43 AM EDT 5 mg 5 mg, Oral, ONCE, 1 dose, On Fri03/16/19 at 0945, Routine calcium carbonate (TUMS) chewable tablet Given 03/15/2019 12:33 PM EDT 500 mg 500-1,000 mg 500-1,000 mg, Oral, EVERY 4 HOURS PRN, Starting on Fri03/15/19 at 0758, Until Fri03/18/19 at 1449, Heartburn, Give 500 mg (1 tablet) for mild to moderate heartburn. Give 1,000 mg (2 tablets) for severe heartburn., Routine Given 03/15/2019 8:50 AM EDT 500 mg diphenhydrAMINE (BENADRYL) 50 mg/mL inje ction 1 dose, Starting on Fri03/15/19 at 1007, Until Fri03/15/19 at 1015, BRENDA WANG: cabinet override diphenhydrAMINE (BENADRYL) injection 25 mg Given 03/15/2019 10:15 AM EDT 25 mg 25 mg, Intravenous, ONCE, 1 dose, On Fri03/15/19 at 1030, Routine diphenhydrAMINE (BENADRYL) injection 25 mg Given 03/15/2019 10:45 AM EDT 25 mg 25 mg, Intravenous, ONCE, 1 dose, On Fri03/15/19 at 1045, STAT enalaprilat (VASOTEC) injection Given 03/17/2019 12:27 PM EDT 1.25 mg 1.25 mg, Intravenous, EVERY 6 HOURS PRN, Starting on 03/13/19 at 1619, Until Kerry 03/18/19 at 1449, hypertension , Systolic blood pressure (SBP) goal Less Than 160 mmHg. Administer if inadequate blood pressure control in 30 minutes despite Labetolol or when SBP is greater than 160 mmHg or diastolic blood pressure (DBP) greater than 100 mmHg., Routine enoxaparin (LOVENOX) injection 40 mg Given 03/17/2019 8:16 PM EDT 40 mg 40 mg, Subcutaneous, NIGHTLY, First dose on 03/13/19 at 2100, Until Discontinued, Routine Given 03/16/2019 8:54 PM EDT 40 mg Given 03/15/2019 8:42 PM EDT 40 mg hydrALAZINE (APRESOLINE) injection 10 mg 10 mg, Intravenous, EVERY 4 HOURS PRN, S tarting on Fri03/17/19 at 1230, Until Kerry 03/18/19 at 1449, High Blood Pressure, for systolic >16 0 hydrOXYzine (ATARAX) tablet 25 mg Given 03/18/2019 8:19 AM EDT 25 mg 25 mg, Oral, 3 TIMES DAILY, First dose (after last modification) on 03/14/19 at 2030, Until Discontinued, For migraine nausea, Routine Given 03/17/2019 8:15 PM EDT 25 mg Given 03/17/2019 3:42 PM EDT 25 mg ketorolac (TORADOL) injection 30 mg Given 03/14/2019 9:56 AM EDT 30 mg 30 mg, Intravenous, ONCE, 1 dose, On 03/14/19 at 1000, Routine ketorolac (TORADOL) injection 30 mg Given 03/14/2019 2:31 PM EDT 30 mg 30 mg, Intravenous, ONCE, 1 dose, On 03/14/19 at 1445, Routine ketorolac (TORADOL) injection 30 mg Given 03/15/2019 8:47 AM EDT 30 mg 30 mg, Intravenous, EVERY 6 HOURS, 20 doses, First dose on Fri03/14/19 at 2030, Last dose on Fri03/19/19 at 1430, Routine Given 03/15/2019 1:57 AM EDT 30 mg Given 03/14/2019 8:12 PM EDT 30 mg labetalol (NORMODYNE,TRANDATE) injection 10-20 Given 0 03/16/2019 6:20 PM EDT 20 mg mg 10-20 mg, Intravenous, EVERY 15 MIN PRN, Starting on 03/13/19 at 1619, Until Kerry 03/18/19 at 1449, High Blood Pressure, - Systolic blood pressure (SBP) goal Less Than 160 mmHg. Start with 10 mg/dose every 15 minutes, If inadequate effect with 10 mg/dose then increase to 20 mg/dose for subsequent dosing. - Do not exceed 300 mg per day. - Repeat every 15 minutes for SBP greater than 160 mmHg. - Hold if pulse is less than 50 beats per minute. If Labetalol does not satisfactorily control BP within 30 minutes, consider enalaprilat or niCARdipine., Routine Given 03/16/2019 10:13 AM EDT 20 mg Given 03/15/2019 3:10 PM EDT 10 mg lidocaine (XYLOCAINE) 10 mg/mL (1 %) Given 03/13/2019 5:15 PM ED T 100 mg injection 100 mg 100 mg (10 mL), Subcutaneous, ONCE, 1 dose, On 03/13/19 at 1715, STAT lisinopril (PRINIVIL;ZESTRIL) tablet 10 mg Given 03/18/2019 8:19 AM EDT 10 mg 10 mg, Oral, DAILY, First dose on Fri03/17/19 at 1245, Until Discontinued, Routine Given 03/17/2019 1:49 PM EDT 10 mg LORazepam (ATIVAN) injection 1 mg Given 03/13/2019 6:30 PM EDT 1 mg 1 mg, Intravenous, ONCE, 1 dose, On 03/13/19 at 1830, STAT magnesium sulfate 2 g in sterile water New Bag 03/14/2019 2:07 PM EDT 2 g 200 mL/hr 50 mL 2 g, Intravenous, ONCE, 1 dose, On 03/14/19 at 1415, Administer over 15 Minutes, Please give over 15 minutes for headache magnesium sulfate 2 g in sterile water New Bag 03/14/2019 8:11 PM EDT 2 g 200 mL/hr 50 mL 2 g, Intravenous, ONCE, 1 dose, On 03/14/19 at 2030, Administer over 15 Minutes, Please adminster over 15 minutes for headache magnesium sulfate 2 g in sterile water New Bag 03/15/2019 4:24 PM EDT 2 g 200 mL/hr 50 mL 2 g, Intravenous, ONCE, 1 dose, On 03/15/19 at 1600, Administer over 15 Minutes, Run over 15 minutes for headache melatonin tablet 6 mg Given 03/17/2019 8:16 PM EDT 6 mg 6 mg, Oral, NIGHTLY, First dose on Fri03/15/19 at 2300, Until Discontinued, Routine Given 03/16/2019 8:52 PM EDT 6 mg Given 03/15/2019 10:40 PM EDT 6 mg methyl salicylate-menthol (BENGAY) 15-10 % Given 03/17/2019 8:18 PM EDT 1 each cream 1 each 1 each, Topical (Top), 3 TIMES DAILY, First dose on Fri03/15/19 at 1700, Until Discontinued, Neck and muscle pain Given 03/17/2019 3:42 PM EDT 1 each Given 03/17/2019 8:12 AM EDT 1 each naproxen (NAPROSYN) tablet 500 mg Given 03/17/2019 6:46 AM EDT 500 mg 500 mg, Oral, 2 TIMES DAILY PRN, Starting on Fri03/15/19 at 1532, Until Kerry 03/18/19 at 1449, Pain, Take with food or milk, Routine Given 03/16/2019 8:52 PM EDT 500 mg Given 03/16/2019 2:58 PM EDT 500 mg ondansetron (ZOFRAN) injection 4 mg Given 03/14/2019 2:08 PM EDT 4 mg 4 mg, Intravenous, EVERY 8 HOURS PRN, Starting on 03/14/19 at 0938, Until 03/14/19 at 1607, Nausea ondansetron (ZOFRAN) injection 8 mg 8 mg, Intravenous, EVERY 8 HOURS PRN, St arting on 03/14/19 at 1607, Until Kerry 03/18/19 at 1449, Nausea senna-docusate (PERICOLACE) 8.6-50 mg per Given 2018 8:20 AM EDT 2 tablets tablet 2 tablet 2 tablet, Oral, 2 TIMES DAILY, First dose on 03/13/19 at 2100, Until Discontinued, Administer to achieve 1 soft bowel movement daily without straining, Routine Given 03/16/2019 8:53 PM EDT 2 tablets Given 03/16/2019 8:08 AM EDT 2 tablets sodium chloride 0.9 % flush 5 mL Given 03/17/2019 8:17 PM EDT 5 mLs 5 mL, Intravenous, 2 TIMES DAILY, First dose on [facility] 03/13/19 at 2100, Until Discontinued, Routine Given 03/17/2019 8:12 AM EDT 5 mLs Given 03/16/2019 8:59 PM EDT 10 mLs sodium chloride 0.9% 1,000 mL IV bolus New Bag 03/14/2019 2:15 PM EDT Intravenous, ONCE, 1 dose, On 03/14/19 at 1415 sodium chloride 0.9% infusion New Bag 03/16/2019 1:01 PM EDT 1,000 mLs 100 mL/hr 1,000 mL, at 100 mL/hr, Intravenous, CONTINUOUS, Starting on 03/13/19 at 1645, Until 03/16/19 at 1933 New Bag 03/15/2019 4:25 PM EDT 1,000 mLs 100 mL/hr New Bag 03/15/2019 5:44 AM EDT 1,000 mLs 100 mL/hr documented in this encounter Active and Recently Administered Medications Times are shown in EDT. Scheduled Medication Order 03/16/2019 03/17/2019 03/18/2019 acetaminophen (TYLENOL) tablet 650 mg 0000 (Hold - Pro vider: Brandyn George RN - Reason: See comment - Comment: pt sleeping, held per request)0600 (Hold - Provider: Brandyn George RN - Reason: See comment - Comment: sleeping, held per pt request) 0000 (Not Given - Provider: Gurmeet aguayo RN - Reason: Patient/family refused)0145 (Given - Provider: Gurmeet Dubon RN)0811 (Given - Provider: Andrew Anguiano, GRACE)1349 (Given - Provider: Alba Pruitt, GRACE) 0200 (Not Given - Provider: Delores Cook RN - Reason: Patient/family refused)0820 (Given - Provider: Shaniqua Rodriguez, GRACE) 650 mg, Oral, EVERY 6 HOURS, First dose on Fri03/14/19 at 1800, Until Discontinued, Maximum dose of acetaminophen is 4000 mg from all sources in 24 hours., Routine 0808 (Given - Provider: James Aiken RN)1200 (Hold - Provider: James Aiken RN - Reason: Patient/family refused)1301 (Given - Provider: James Aiken RN)1816 (Given - Provider: James Aiken RN) 2014 (Given - Provider: Delores Cook RN) amLODIPine (NORVASC) tablet 10 mg 0811 ( Given - Provider: Andrew Anguiano, GRACE) 0820 (Given - Provider: Shaniqua Rodriguez RN) 10 mg, Oral, DAILY, First dose on Fri at 0900, Until Discontinued, Routine amLODIPine (NORVASC) tablet 5 mg (CANCELED) 0808 (Give n - Provider: James Aiken RN) 5 mg, Oral, DAILY, First dose on 03/01 at 0900, Until Discontinued, Routine amLODIPine (NORVASC) tablet 5 mg (COMPLETED) 43 (Giv en - Provider: Gabriela Joyner, GRACE) 5 mg, Oral, ONCE, 1 dose, Fri03/16/19 at 0945, Routine enoxaparin (LOVENOX) injection 40 mg 2053 (Given - Pro vider: Gurmeet Dubon RN) 2015 (Given - Provider: Delores Cook, GRACE) 40 mg, Subcutaneous, NIGHTLY, First dose on Fri03/13/19 at 2100, Until Discontinued, Routine hydrOXYzine (ATARAX) tablet 25 mg 08 (Given - Provid er: James Aiken RN)1458 (Given - Provider: James Aiken RN)2051 (Given - Provider: Gurmeet Dubon RN) 08 (Given - Provider: Andrew sanchez RN)154 (Given - Provider: Andrew Anguiano RN)2014 (Given - Provider: Delores Cook RN) 08 (Given - Provider: Shaniqua oRdriguez, RN) 25 mg, Oral, 3 TIMES DAILY, First dose o n 03/14/19 at 2030, Until Discontinued, For migraine nausea, Routine lisinopril (PRINIVIL;ZESTRIL) tablet 10 mg 134 (Given - Provider: Alba Pruitt RN) 818 (Given - Provider: Shaniqua Rodriguez, RN) 10 mg, Oral, DAILY, First dose on Fri at 1245, Until Discontinued, Routine melatonin tablet 6 mg 2051 (Given - Provider: Gurmeet morocho RN) 2015 (Given - Provider: Delores Cook RN) 6 mg, Oral, NIGHTLY, First dose on Fri at 2300, Until Discontinued, Routine methyl salicylate-menthol (BENGAY) 15-10 % cream 1 eac h 0900 (Hold - Provider: James Aiken RN - Reason: Patient/family refused)1500 (Hold - Provider: James Aiken RN - Reason: Patient/family refused)2057 (Not Given - Provider: Gurmeet Dubon RN - Reason: Patient/family refused) 0812 (Given - Provider: Andrew Anguiano RN)154 (Given - Provider: Andrew Anguiano RN)2017 (Given - Provider: Delores Cook, GRACE) 0820 (Not Given - Provider: Shaniqua Rodriguez, GRACE - Reason: Patient/family refused) 1 each, Topical (Top), 3 TIMES DAILY, Fi rst dose on Fri03/15/19 at 1700, Neck and muscle pain polyethylene glycol (MIRALAX) packet 17 g 0900 (Not Gi analisa - Provider: James Aiken RN - Reason: Contraindicated) 0900 (Not Given - Provider: Andrew Anguiano RN - Reason: Patient/family refused) 0823 (Not Given - Provider: Shaniqua Rodriguez RN - Reason: Patient/family refused) 17 g, Oral, DAILY, First dose on Sat 03/01 02/16 at 1645, Until Discontinued, Routine senna-docusate (PERICOLACE) 8.6-50 mg per tablet 2 tab let 0808 (Given - Provider: James Aiken RN)2052 (Given - Provider: Gurmeet Dubon RN) 0900 (Not Given - Provider: Andrew Anguiano RN - Reason: Patient/family refused)2099 (Not Given - Provider: Delores Cook RN - Reason: Patient/family refused) 0820 (Given - Provider: Shaniqua Rodriguez, GRACE) 2 tablet, Oral, 2 TIMES DAILY, First dos e on 03/13/19 at 2100, Until Discontinued, Administer to achieve 1 soft bowel movement daily without straining, Routine sodium chloride 0.9 % flush 5 mL 0900 (Not Given - Pro vider: James Aiken RN - Reason: See comment - Comment: Infusing)2058 (Given - Provider: Gurmeet Dubon RN) 811 (Given - Provider: Andrew sanchez, RN)2016 (Given - Provider: Delores Cook RN) 0823 (Not Given - Provider: Shaniqua Gillis ms, RN - Reason: See comment - Comment: Pt discharging) 5 mL, Intravenous, 2 TIMES DAILY, First dose on 03/13/19 at 2100, Until Discontinued, Routine Continuous Medication Order 03/16/2019 03/17/2019 03/18/2019 sodium chloride 0.9% infusion (CANCELED) 1301 (New Bag - Provider: James Aiken RN)2057 (Stopped - Provider: Gurmeet Dubon RN) 1,000 mL, at 100 mL/hr, Intravenous, CON TINUOUS, Starting 03/13/19 at 1645, Until 03/16/19 at 1933 PRN Medication Order 03/16/2019 03/17/2019 03/18/2019 bisacodyl (DULCOLAX) suppository 10 mg 10 mg, Rectal, DAILY PRN, Starting Sat at 1619, Until Kerry 03/18/19 at 1449, Constipation, Administer if needed per patient's routine or if no bowel movement within 48 hours to achieve: (1) One dae wel movement at least every 48 hours, AN D (2) Without straining. If multiple PRN bowel medications ordered, start with magnesium hydroxide, then bisacodyl. Multiple medications may be given concomitantly for constipation., Routine calcium carbonate (TUMS) chewable tablet 500-1,000 mg 500-1,000 mg, Oral, EVERY 4 HOURS PRN, S tarting 03/15/19 at 0758, Until [place] 03/18/19 at 1449, Heartburn, Give 500 mg (1 tablet) for mild to moderate heartburn. Give 1,000 mg (2 tablets) for severe heartburn., Routine enalaprilat (VASOTEC) injection 1227 (Gi analisa - Provider: Andrew Anguiano RN - Comment: labetalol out of stock in all cabinets) 1.25 mg, Intravenous, EVERY 6 HOURS PRN, Starting 03/13/19 at 1619, Until [place] 03/18/19 at 1449, hypertension , Systolic blood pressure (SBP) goal Less Than 160 mmHg. Administer if inadequate blood pre ssure control in 30 minutes despite Labe tolol or when SBP is greater than 160 mmHg or diastolic blood pressure (DBP) greater than 100 mmHg., Routine hydrALAZINE (APRESOLINE) injection 10 mg 10 mg, Intravenous, EVERY 4 HOURS PRN, S tarting 03/17/19 at 1230, Until [place] 03/18/19 at 1449, High Blood Pressure, for systolic >160 labetalol (NORMODYNE,TRANDATE) injection 10-20 mg 1013 (Given - Provider: James Aiken, GRACE)1820 (Given - Provider: James Aiken RN) 10-20 mg, Intravenous, EVERY 15 MIN PRN, Starting 03/13/19 at 1619, Until [place] 03/18/19 at 1449, High Blood Pressure, - Systolic blood pressure (SBP) goal Less Than 160 mmHg. Start with 10 mg/dose ever y 15 minutes, If inadequate effect with 10 mg/dose then increase to 20 mg/dose for subsequent dosing. - Do not exceed 300 mg per day. - Repeat every 15 minutes for SBP greater than 160 mmHg. - Hold if p ulse is less than 50 beats per minute. * *If Labetalol does not satisfactorily control BP within 30 minutes, consider enalaprilat or niCARdipine., Routine lidocaine (XYLOCAINE) 10 mg/mL (1 %) injection 3 mg 3 mg (0.3 mL), Subcutaneous, ONCE PRN, 1 dose, Starting 03/13/19 at 1619, Until [place] 03/18/19 at 1449, for discomfort with PIV insertion, Routine magnesium hydroxide (Milk of Magnesia) (240 mg/mL) oral liquid 1 0 mL 10 mL, Oral, NIGHTLY PRN, Starting Sat at 1619, Until [place] 03/18/19 at 1449, Constipation, Administer if needed per patient's routine or if no bowel movement within 48 hours to achieve: (1) One dae wel movement at least every 48 hours, AN D (2) Without straining. If multiple PRN bowel medications ordered, start with magnesium hydroxide, then bisacodyl. Multiple medications may be given concomitantly for constipation., Routine naproxen (NAPROSYN) tablet 500 mg 0222 (Given - Provid er: Brandyn George RN)1458 (Given - Provider: James Aiken RN)2052 (Given - Provider: Gurmeet Dubon, GRACE) 0646 (Given - Provider: Gurmeet Dubon, GRACE) 500 mg, Oral, 2 TIMES DAILY PRN, Startin g 03/15/19 at 1532, Until [place] 03/18/19 at 1449, Pain, Take with food or milk, Routine ondansetron (ZOFRAN) injection 8 mg 8 mg, Intravenous, EVERY 8 HOURS PRN, St arting 03/14/19 at 1607, Until [place] 03/18/19 at 1449, Nausea sodium chloride 0.9 % flush 5-20 mL 5-20 mL, Intravenous, EVERY 1 MIN PRN, S tarting 03/13/19 at 1619, Until [place] 03/18/19 at 1449, flush, Flush pertains to all indwelling lines. Flush per protocol found in the job aid using the link provided on this medication record., Routine documented in this encounter Care Teams Supervisor Loading Relationship Specialty Start Date End Date Ryne Harris MD PCP - General 10/23/10 [address] [place] [address] documented as of this encounter
--- OUTSIDE RECORDS SUMMARY | 2022-07-03 09:04 | XMS_ITS | Encounter Summary ---
:1975 Author Organization [facility] Address [place] [id number] Care Team Providers Name Role Phone Ryne Harris MD Primary Care Provider Reason for Referral Diagnostic Test (Routine) - Closed Specialty Diagnoses / Procedures Referred By Contact Refer red To Contact Radiology Diagnoses Cerebral aneurysm Nikolas Persaud MD [facility] Interventionl Rad Procedures IR Arteriogram Cerebral [facility] [place] [phone] [place] [address] Referral ID Status Reason Start Date Expiration Date Visits V isits Requested Authorized [id number] Closed Specialty 03/24/2019 03/23/2020 1 1 Service Requested Reason for Visit Reason Comments Advice Only s/p right Acomm 5mm aneurysm right vert 8mm fusiform aneurysm Consultation (Routine) - Closed Specialty Diagnoses / Procedures Referred By Contact Refer red To Contact Neurosurgery Diagnoses aneurysm Mikaela Plunkett MD Jaleel, Naser, MD Procedures [facility] [place]OLOGY [place] [address] Fax: Referral ID Status Reason Start Date Expiration Date Visits V isits Requested Authorized [id number] Closed Consult, 03/15/2019 03/14/2020 1 1 Test & Treat Encounter Details Date Type Department Care Team Description 03/24/2019 Office Visit Neurosurgery at [facility] Nikolas Persaud MD Aneurysm of [facility] artery; [facility] [address] [place] [phone] NEUROSURGERY [phone] [place], [place] [address] Social History Tobacco Use Types Packs/Day Years [...] Sign Reading Time Taken Comments Blood Pressure 129/84 03/24/2019 10:58 AM EDT Pulse 75 03/24/2019 10:58 AM EDT Temperature - - Respiratory Rate - - Oxygen Saturation - - Inhaled Oxygen Concentration - - Weight 115 kg (253 lb 8.5 oz) 03/24/2019 10:58 AM EDT Height 177.8 cm (5' 10) 03/24/2019 10:58 AM EDT Body Mass Index 36.38 03/24/2019 10:58 AM EDT documented in this encounter Progress Notes Nikolas Persaud MD - 03/24/2019 11:00 AM EDT Images from the original note were not included. Section of Neurosurgery Initial Consultation Note 03/24/2019 Mikaela Plunkett MD [facility] [place] [address] RE: Jaswant Nice : [address] 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 As you know, Mr. Nice is a pleasant 43 y.o. male who was recently found to have two intracranial aneurysms. These were discovered on work up for an episode of sudden severe headache with possible loss of consciousness which brought him to medical attention. Per discussion with patient and family and review of medical records, Mr. Nice had sudden onset of severe headache on 03/13/2019. He has a remote history of migraines in his teens and twenties, but no recent headache history, so this was out of the ordinary for him. He recalls receiving an ice pack from his girlfriend but cannot recall events thereafter. 911 was called and he was found face down. He presented initially to [facility]. He was noted to be confused and lethargic with left sided weakness. His blood pressure was 192/101. CT scan of the head 03/13 was negative for stroke or hemorrhage. CTA on 03/13 demonstrated the above mentioned aneurysms.He was given IV medication to bring his blood pressure down and he was transferred to [facility] for further evaluation and management. He was admitted to the Neurology service at [facility]. An LP was performed 03/13 which was negative for RBCs and xanthochromia. Repeat CT was performed on 03/14 and did not demonstrate any changes from prior imaging (again without evidence of hemorrhage or stroke). He was unable to have an MRI due to an implanted bone stimulator. EEG was performed and did not demonstrate any epil eptic activity. His blood pressure was eventually well controlled with oral medications which he continues today. He underwent workup for pheochromocytoma which results were still pending at the time of discharge. His headache had improved significantly over the course of his hospitalization, but did not resolve fully. Currently, Mr. Nice continues to complain of head and neck pain. Headache is not positional. He reports light sensitivity as well neck stiffness. No back pain above his usual. HTN history: Hypertensive urgency during episode with no prior history of HTN. Currently treated with lisinopril and amlodipine. SBP today is 129. Smoking history: Former smoker with a 20 pack/year history Familial aneurysm history: Maternal grandfather - from cerebral hemorrhage Paternal grandmother - h/o renal artery aneurysm Paternal uncle x2 - from aortic aneurysm PAST MEDICAL HISTORY: Migraine Hypertensive urgency Deaf in right ear PAST SURGICAL HISTORY: L5-S1 exploration, non-instrumented fusion, placement of ANNELIESE bone stimulator L5-S1 diskectomy Partial thyroidectomy for nodule Right middle ear exploration Past Surgical History: Procedure Laterality Date ??? XR FLUORO LUMBAR PUNCTURE DIAGNOSIS N/A 03/13/2019 XR Fluoro Lumbar Puncture 03/13/2019 [facility] RAD XRAY SOCIAL HISTORY: Social History Tobacco Use ??? Smoking status: Former Smoker Packs/day: 1.00 Years: 20.00 Pack years: 20.00 Types: Cigarettes ??? Smokeless tobacco: Never Used Substance Use Topics ??? Alcohol use: Not Currently ??? Drug use: Yes Frequency: 7.0 times per week Types: Marijuana CURRENT MEDICATIONS: ??? amLODIPine (NORVASC) 10 mg Tablet ??? hydrOXYzine (ATARAX) 25 mg Tablet ??? lisinopril (PRINIVIL;ZESTRIL) 10 mg Tablet ??? melatonin 3 mg Tablet ??? naproxen (NAPROSYN) 500 mg Tablet ??? Miscellaneous Medical Supply Misc ALLERGIES: Allergies Allergen Reactions ??? Aspirin CIS - shortness of breath PHYSICAL EXAMINATION: Blood pressure 129/84, pulse 75, height 177.8 cm (5' 10), weight 115 kg (253 lb 8.5 oz). Awake, alert, and in no acute distress Speech: Appropriate and fluent; questions appropriately Cranial Nerves: II-XII grossly intact Motor: Normal muscle bulk and tone. No pronator drift. STRENGTH R L REFLEXES R L Shoulder Abduction 5 5 Biceps 1 1 Elbow Flexion 5 5 Brachiorad. 1 1 Elbow Extension 5 5 Triceps 1 1 Wrist Dorsiflexion 5 5 Finger Abduction 5 5 Patella 1 1 Flow Nurse 5 5 Ankle 1 1 Hip Flexion 5 5 Knee Flexion 5 5 PATHOLOGIC Knee Extension 5 5 REFLEXES R L Ankle dorsiflexion 5 5 Leong's Absent Absent Ankle plantarflexion 5 5 Babinski Not tested Not tested Extensor hallucis 5 5 Clonus None None Sensation: Grossly intact to light touch in all four extremities. Cerebellar: No dysmetria with finger to nose testing bilaterally Gait: Independent and stable gait. Some difficulty with tandem walking. RADIOGRAPHIC STUDIES: CT head wo contrast 03/14/2019 No acute intracranial process. Known fusiform aneurysm again identified. ?? CT angiogram head 03/13/2019 R intracranial vertebral artery fusiform aneurysm with maximal diameter about 8 mm. Small anterior communicating artery aneurysm. ?? CT head wo contrast 03/13/2019 No acute intracranial process. IMPRESSION AND PLAN: Mr. Nice is a 43 y.o. 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 Headaches are better than during initial presentation, but still significant and associated with photophobia.Work up was negative for hemorrhage or stroke on CT. Unable to have MRI d/t bone stimulator. LP was negative for RBCs or xanthochromia. I reviewed the imaging studies with the patient and his family. Findings warrant further investigation with diagnostic cerebral angiogram. I reviewed the risks and benefits of the diagnostic angiogram. The patient is eager to proceed with further imaging. I offered hospital admission for management of the patient's continued headaches along with imaging of his aneurysms. Based on my findings I suggest the following course of action: 1. Admit to hospital with plans for diagnostic cerebral angiogram tomorrow 2. Management of headaches It was my pleasure to have seen and examined Mr. Nice with JUAN Orozco. In our visit today, we discussed the patient's current condition, the natural course history without treatment and various interventional options. I have seen and examined the patient for 60 minutes. We spent more than 50% of the time in counseling about the patient's condition and addressing questions regarding natural course history and treatment options. I will be sure to keep you updated after Mr. Nice returns here for further follow-up. Thank you again for your referral. Please don't hesitate to contact me if you have any further questions. Sincerely, Nikolas Persaud MD, PhD Section of Neurosurgery [address] [address] CC: Ryne Harris MD CC: Mikaela Plunkett MD [facility] [place] [address] This message is confidential, intended only for the named recipient(s) and may contain information that is privileged or exempt from disclosure under applicable law. If you are not the intended recipient(s), you are notified that the dissemination, distribution or copying of this information is strictly prohibited. If you received this message in error, please notify the sender then delete this message. documented in this encounter Plan of Treatment Not on filedocumented as of this encounter Results IR Arteriogram Cerebral (03/25/2019 10:26 AM EDT) [...] entire procedure. Narrative 04/20/2019 11:41 AM EDT [facility] CEREBRAL ANGIOGRAPHY NOTE ? PATIENT NAME:?Jaswant Nice :? 1975 MRN: ?[id number] ?? CASE DATE:? 03/25/2019 ? ATTENDING: ?Nikolas Persaud MD? ASSISTANTS: ? Jean Yanez MD; [...] PROCEDURE: The patient was brought to the [facility] radiology suite and positioned on the angiography [...] above the bifurcatio n. ? A 5Fr LogicLoop diagnostic catheter was adva nced into the [...] of the basilar artery fill normally. ?? Nikolas Persaud MD IMG IR ORDERABLES documented in this encounter Visit Diagnoses Diagnosis 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 Cerebral aneurysm Cerebral aneurysm, nonruptured documented in this encounter Care Teams Supervisor Housecleaner Relationship Specialty Start Date End Date Ryne Harris MD PCP - General 10/23/10 [address] [place] [address] documented as of this encounter
--- OUTSIDE RECORDS SUMMARY | 2022-07-03 09:06 | XMS_ITS | Encounter Summary ---
:1975 Author Organization [facility] Address [address] [place] [address] Care Team Providers Name Role Phone Ryne Harris MD Primary Care Provider Encounter Details Date Type Department Care Team Description 12/24/2021 Lab Requisition [facility] Outr Resulting Lab, Pathology & Laboratory Provider [facility] [address], [place] [id number] Social History Tobacco Use Types Packs/Day Years Used Date Never Assessed Sex Assigned at Date Recorded Not on file documented as of this encounter Plan of Treatment Not on filedocumented as of this encounter Procedures Procedure Name Priority Date/Time Associated Diagnosis Comme nts COVID-19 TEST [facility] Today 12/23/2021 14:40 LAB PCR EST COVID-19 TESTING Routine 12/23/2021 14:40 Results for this EST procedure are i n the results section. documented in this encounter Results COVID-19 TEST [facility] LAB PCR (12/23/2021 14:40 EST) Specimen Swab Performing Organization Address City/State/ZIP Code Phon e Number [facility] [address] [place] [address] SERVICES COVID-19 TESTING (12/23/2021 14:40 EST) COVID-19 rt-PCR Negative Negative [facility] Result Comment: [facility] This test has not been FDA c leared or approved. This test has been authorized by FDA under an EUA for use by authorized laboratories. This test has been authorized only for detection of nucleic acid fro SERVICES m 2019-nCoV, not for any oth er viruses or pathogens. This test is only authorized for the duration of the declaration that circumstances exist justifying the authorization of emergency use of in vitro d iagnostic tests for detectio n and/or diagnosis of 2019-nCoV under section 564(b)(1) of Act, 21 U.S.C ?? 360bbb-3(b) (1), unless the authorization is terminated or revoked sooner. Negative results do not prec lude 2019-nCoV infection and should not be used as the sole basis for treatment or other patient management decisions. Negative results must be combined with clinical observa tions, patient history, and epidemiological informatio n. Testing was performed using the jaspal SARS-CoV-2 assay ([employer] on the Jaspal 6800 System Performing Lab Jaspal [address] [facility] Lab [facility] SERVICES Specimen Swab Performing Organization Address City/State/ZIP Code Phon e Number [facility] [address] [place] [address] SERVICES documented in this encounter Visit Diagnoses Not on filedocumented in this encounter Care Teams Coiled Tubing Operator Relationship Specialty Start Date End Date Ryne Harris MD PCP - General 10/07/15 [address] [place], [place] [phone] documented as of this encounter
--- OUTSIDE RECORDS SUMMARY | 2022-07-03 09:06 | XMS_ITS | Encounter Summary ---
:1975 Author Organization [facility] Address [address] [place] [address] Care Team Providers Name Role Phone Ryne Harris MD Primary Care Provider Encounter Details Date Type Department Care Team Description 01/04/2021 Lab Requisition [facility] Outr Resulting Lab, Pathology & Laboratory Provider [facility] [address] [place], [place] [id number] Social History Tobacco Use Types Packs/Day Years Used Date Never Assessed Sex Assigned at Date Recorded Not on file documented as of this encounter Plan of Treatment Not on filedocumented as of this encounter Procedures Procedure Name Priority Date/Time Associated Diagnosis Comme nts COVID-19 TEST [facility] Today 01/04/2021 10:40 LAB PCR EST COVID-19 TESTING Routine 01/04/2021 10:40 Results for this EST procedure are i n the results section. documented in this encounter Results COVID-19 TEST [facility] LAB PCR (01/04/2021 10:40 EST) Specimen Swab - Entire nasopharynx (body structur e) Performing Organization Address City/State/ZIP Code Phon e Number [facility] [address] [place] [address] SERVICES COVID-19 TESTING (01/04/2021 10:40 EST) COVID-19 rt-PCR Negative Negative [facility] Result Comment: [facility] This test has not been FDA c leared or approved. This test has been authorized by FDA under an EUA for use by authorized laboratories. This test has been authorized only for detection of nucleic acid fro SERVICES m 2019-nCo, not for any oth er viruses or [...] tions, patient history, and epidemiological informatio n. This test was developed and its performance characteristics determined by [facility]. It has not been cleared or approved by the US Food and Drug Administration. FDA does not require this test to go through premarket FDA review. This t est is used for clinical purposes. It should not be regarded as investigational or for research. This laboratory is certified under the Clinical Laboratory Improvement Amendm ents (CLIA) as qualified to perform high complexity clinical laboratory testing. This test is based on the CD C COVID-19 Emergency Use Authorization (EUA) assay, with minor modification as defined by the FDA Performed on the [employer] 7 Flex RT-PCR System. 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
--- OUTSIDE RECORDS SUMMARY | 2022-07-03 09:06 | XMS_ITS | Encounter Summary ---
:1975 Author Organization [facility] Address [address] [place] [address] Care Team Providers Name Role Phone Unavailable Primary Care Provider Unavailable Encounter Details Date Type Department Care Team Description 06/19/[address] [facility] Carlos Blank MD Converted Visit Family Medicine - [address] ([place]) [place], [place] [address] [facility] [address] [place] [address] [phone] Social History Tobacco Use Types Packs/Day Years Used Date Never Assessed Sex Assigned at Date Recorded Not on file documented as of this encounter Plan of Treatment Not on filedocumented as of this encounter Procedures Procedure Name Priority Date/Time Associated Diagnosis Comme [facility] SURGICAL PATHOLOGY Routine 06/19/2008 0:00 EDT Re sults for this procedure are i n the results section. documented in this encounter Results SURGICAL PATHOLOGY (06/19/2008 0:00 EDT) Pathology Report: SURGICAL PATHOLOGY REPORT ? KIRAN HUTCHINSON Reports generated via electr [employer] interface contain original data; ? LAB however they are lacking the format of the original report. ? Caution should be taken when reading/interpreting unformatted reports. ? Name: ? GUZMAN, JAIME A ? Accession #: ? [id number] ? : ? 1975 (Age: 32) ??M ? Collec t Date: ? 06/19/2008 ? Location: ? [facility] ? R eceive Date: ? 06/20/2008 ? Provider: CARLOS WALKO MD ? Copy to: PEYTON MATTHEWS MD ? ROLANDA ROSALINA MD ? Final Pathologic Diagnosis: ? Appendix, appendectom y: ? 1. ?Acute suppu rative appendicitis with transmural inflammation. ? 2. ? Acute organizing se rositis. ? 3. ? Periappendicitis. ? Document reviewed and electr onically signed by: ? Berny Coello MD ? Report ??Date: 06/23/2008 14 :35 ? By the signature above, the attending physician certifies that he/she has ? personally conducted a gross and/or microscopic examination of the described ? specimens and rendered or co nfirmed the above diagnosis. ? Specimen(s) Received: ? Appendix ? Clinical History: ? Appendicitis ? Gross Description: ? Received in formalin labelled Guzman and appendix is a 8.0 cm in length ?? by 0.9 cm in diameter vermif orm appendix which includes a moderate amount of ? attached mesoappendix. ??The proximal resection margin is black inked. ??The ? serosa is moderately dusky, young-brown (particularly the distal third of the ? appendix) and is focally cov ered by a moderate amount of keys-white fibrinous ?? exudate. ??The appendiceal l umen is of normal caliber and does not contain any ?? fecaliths. ??The mucosa is t an-brown and moderately hyperemic in the distal ? one-third of the appendix. ? ?The appendiceal wall is young-white with an average ?? thickness of 0.4 cm and no d iscernible perforations. ??One-half of the ? longitudinally bisected dist al of the appendix, along with consumer sales representative cross sections from the distal, mi ddle and proximal appendix are submitted in one ? cassette. ??(Irma Rivas)/m ms ? End of Report ? Specimen Performing Organization Address City/State/ZIP Code Phon e Number [facility] [address] [place] [phone] SERVICES [facility] [address] [place] [address] documented in this encounter Visit Diagnoses Not on filedocumented in this encounter
--- OUTSIDE RECORDS SUMMARY | 2022-07-03 09:06 | XMS_ITS | Encounter Summary ---
:1975 Author Organization [facility] Address [address] [place] [address] Care Team Providers Name Role Phone Unavailable Primary Care Provider Unavailable Encounter Details Date Type Department Care Team Description 01/25/2009 Before [facility] [place] [place], Converted Visit Cassandra pearce MD (Cassandra) [address] [facility] [address] [place], [place] [phone] [place] [phone] (Wo rk) Social History Tobacco Use Types Packs/Day Years Used Date Never Assessed Sex Assigned at Date Recorded Not on file documented as of this encounter Plan of Treatment Not on filedocumented as of this encounter Procedures Procedure Name Priority Date/Time Associated Diagnosis Comme [facility] SURGICAL PATHOLOGY Routine 01/25/2009 0:00 EST Re sults for this procedure are i n the results section. documented in this encounter Results SURGICAL PATHOLOGY (01/25/2009 0:00 EST) Pathology Report: SURGICAL PATHOLOGY REPORT ? KIRAN HUTCHINSON Reports generated via electr [employer] interface contain original data; ? LAB however they are lacking the format of the original report. ? Caution should be taken when reading/interpreting unformatted reports. ? Name: ? GUZMAN, JAIME A ? Accession #: ? [id number] ? : ? 1975 (Age: 33) ??M ? Collec t Date: ? 01/25/2009 ? Location: ? [facility] ? R eceive Date: ? 01/26/2009 ? Provider: CECILY EMILY MD ? Copy to: PEYTON MATTHEWS MD ? Final Pathologic Diagnosis: ? A. ?Vas deferen s, left, vasectomy: ? 1. ?Full cross section demonstrated. ? B. ?Vas deferen s, right, vasectomy: ? 1. ?Full cross section demonstrated. ? Document reviewed and electr onically signed by: ? Rolando Vieyra MD ? Report ??Date: 01/30/2009 16 :06 ? By the signature above, the attending physician certifies that he/she has ? personally conducted a gross and/or microscopic examination of the described ? specimens and rendered or co nfirmed the above diagnosis. ? Specimen(s) Received: ? A. ?Left vas ? B. ? Right vas ? Clinical History: ? Permanent sterilizati on ? Gross Description: ? Received in formalin labelled Guzman and L vas is a 2.8 cm in length by ?? 0.3 cm in greatest diameter, firm, white, tubular piece of tissue with a ? pinpoint lumen. ??Two repres entative cross sections are submitted as (A). ? Received in formalin candace d Guzman and R vas is a 5.0 cm in length by 0.3 cm in greatest diameter, firm, white, tubular piece of tissue with a pinpoint ? lumen. ??Two in store representative cross sections are submitted as (B). ??(J. ? [employer])/cjh ? End of Report ? Specimen Performing Organization Address City/State/ZIP Code Phon e Number [facility] [address] [place] [address] SERVICES [facility] [address] [place] [address] documented in this encounter Visit Diagnoses Not on filedocumented in this encounter
--- OUTSIDE RECORDS SUMMARY | 2022-07-03 09:06 | XMS_ITS | Clinical Summary ---
:1975 Author Organization [facility] Address [address] [place] [address] Care Team Providers Name Role Phone Ryne Harris MD Primary Care Provider Social History Tobacco Use Types Packs/Day Years Used Date Never Assessed Sex Assigned at Date Recorded Not on file Plan of Treatment Health Maintenance Due Date Last Done Comments COVID-19 Vaccine (1) 1988 Care Teams Forming Fixer Relationship Specialty Start Date End Date Ryne Harris MD PCP - General 10/07/15 [address] [place], [place] [phone]
[2022-07-03 15:19] LABS: ALT 48 U/L (16-63); AST 36 U/L (15-37); Albumin 3.6 g/dL (3.4-5.0); Alkaline Phosphatase 88 U/L (46-116); Anion Gap 6.7 mmol/L (3-11); BUN 12 mg/dL (7-18); Bilirubin, Total 0.7 mg/dL (0.2-1.0); CO2 29.3 mmol/L (21.0-32.0); CREATININE 0.9 mg/dL (0.70-1.30); Calcium 8.4 mg/dL (8.5-10.1); Calculated LDL 93 mg/dL (<100); Chloride 105 mmol/L (98-107); Cholesterol 154 mg/dL (<200); Glucose 135 mg/dL (74-106); HDL Cholesterol 33 mg/dL (40-60); Sodium 141 mmol/L (136-145); TSH (W/Ref FT4) 1.54 uIU/mL (0.36-3.74); Triglyceride 142 mg/dL (<150)
== END 2022-07-03 08:51 | disposition home or self-care (01) ==
LOC: NCHCN 08:50
PROVIDERS: PCP Internal Medicine; Visit Provider Internal Medicine
DX: E89.0 Postprocedural hypothyroidism (principal); I10 Essential (primary) hypertension; R73.03 Prediabetes; E66.9 Obesity, unspecified
CPT/HCPCS: 80053; 80061; 84443

== ENCOUNTER 2022-12-07 13:05 | Emergency (ER) | payer OTHER, SELFPAY ==
[2022-12-07] VITALS (24 sets, daily range): BP systolic 80–162; BP diastolic 36–132; PULSE 87–117; RESP 18–31; TEMP 37–38.6; O2SAT 95
--- NOTE | 2022-12-07 13:00 | RT.EKG_ITS ---
APPROVED REPORT Exam: Resting ECG Reason for Exam: difficulty breathing Patient Location: E HR:92 bpm ECG Measurements Heart Rate 92 AXIS NC 165 P -3 QRSd 78 QRS 67 QT 329 T 24 QTc 407 Conclusion Sinus rhythm...normal P axis, V-rate 60- 99
--- NOTE | 2022-12-07 13:15 | DI.RAD_ITS ---
Exam(s) XR PORTABLE CHEST AP EXAM: XR PORTABLE CHEST AP CLINICAL HISTORY: cough TECHNIQUE: 2D digital imaging was performed. COMPARISON: No exams were available for comparison FINDINGS: LUNGS: Suboptimally inflated but grossly clear. No pleural abnormality seen. HEART: Normal size. AORTA: Normal diameter. BONES: Unremarkable for age. Soft tissues: Unremarkable. IMPRESSION: No acute findings. DATA REPOSITORY: RADIATION DOSE DELIVERED:
--- NOTE | 2022-12-07 13:19 | W.ED.GENAD ---
Discharge Plan Disposition Patient Disposition: Home Condition: Stable Discharge Details Clinical Impression: Influenza A Primary Care Provider: Ryne Harris ED Provider: Brandyn Gomes Home Meds and New Rx's Prescriptions: New prednisone 20 mg tablet 60 mg PO DAILY 4 Days Qty: 12 0RF oseltamivir 75 mg capsule 75 mg PO Q12H 5 Days Qty: 10 0RF Continued amlodipine 10 mg tablet 10 mg PO DAILY hydroxyzine HCl 25 mg tablet 25 mg PO QHS PRN aspirin 81 mg Tablet,Chewable 81 mg PO DAILY acetaminophen [Acetaminophen Extra Strength] 500 mg Tablet 1,000 mg PO PRN PRN [id number]-[id number] Capsule 1 cap PO DAILY albuterol sulfate 90 mcg/actuation aerosol powdr breath activated 2 inh IH Q6H PRN (Reason: shortness of breath or wheezing) Qty: 1 0RF levothyroxine 50 mcg tablet 1 tab PO DAILY Label Comments: TAKE ONE TABLET BY MOUTH EVERY DAY loratadine 10 mg tablet 10 mg PO DAILY Qty: 30 0RF Discharge Instructions Instructions: Influenza (ED) Additional Instructions: if not better within a week follow up with your primary care provider if you feel more ill, have worsening trouble breathing or persistent vomiting return to the emergency department Medical Decision Making 47 yo male who denies chronic medical problems, is a chronic smoker, comes in with cough and fevers starting last night. 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 He states when he coughs his anterior chest aches. He denies excessive alcohol use or drug use. He denies recent travel, abdominal pain, n/v. He arrives febrile and coughing peristently. He has diffuse wheezing in both lungs in all [place], no jvd, no murmurs, no leg swelling or calf tenderness. Given the fevers and cough suspect pneumonia vs viral illness, will obtian cbc, cmp, ekg/troponin given the chest discomfort, and portable chest xray along with fluvid. Will treat with duoneb and methylprednisolone and reassess. labs show wbc of 16 otherwise unremarkable other than he is positive for flu A, xray negative. He feels better, mild apical wheezing bilaterally otherwise clear. Given negative xray and is positive for flu do not feel abx indicated. Will start on tamiflu, advised to f/u with pcp and return precautions given Differential Diagnosis Differential Diagnosis: pneumonia, covid, flu Medical Records Medical records reviewed: Yes I reviewed the patient's medical records. Imaging Data Radiologic Study: Attestation: I personally reviewed and interpreted this imaging study as follows: Imaging: X-Ray Radiologist's impression: no acute findings Lab Data Lab results reviewed: Yes I reviewed the patient's lab results. ECG Data Attestation: I personally reviewed and interpreted this ECG (s) as follows: Prior ECG tracings: available for review Interpretation: sinus rhythm, rate of 92, no stemi HPI General Mode of arrival: ambulatory. Date/Time Provider Initiated Documentation: 12/07/22 13:05. Limitations to Documentation: no limitations. Information obtained by: patient. History of Present Illness 47 year old M presents to the emergency department with the chief complaint of cough, described as moderate, Patient started experiencing this day(s) (1) and it has been constant. No relieving factors improve symptom(s), No exacerbating factors reported . Patient notes fever/chills. Patient did receive the following treatments prior to arrival, none Related Data Home Medications Medication Instructions Recorded Confirmed aspirin 81 mg chewable tablet 81 mg PO DAILY 01/30/20 12/07/22 amlodipine 10 mg tablet 10 mg PO DAILY 06/21/21 12/07/22 hydroxyzine HCl 25 mg tablet 25 mg PO QHS PRN 06/21/21 12/07/22 i-[id number]-[id number]-kuf-[id number]-echin 1 cap PO DAILY 11/04/21 12/07/22 capsule albuterol sulfate 90 mcg/actuation 2 inh inhalation Q6H PRN shortness 11/04/21 12/07/22 breath activated powder inhaler of breath or wheezing #1 ea acetaminophen 500 mg tablet 1,000 mg PO PRN PRN 12/23/21 12/07/22 (Acetaminophen Extra Strength) levothyroxine 50 mcg tablet 1 tab PO DAILY 06/26/22 12/07/22 loratadine 10 mg tablet 10 mg PO DAILY #30 tabs 06/27/22 12/07/22 oseltamivir 75 mg capsule 75 mg PO Q12H 5 days #10 caps 12/07/22 prednisone 20 mg tablet 60 mg PO DAILY 4 days #12 tabs 12/07/22 Previous Rx's Medication Instructions Recorded albuterol sulfate 90 mcg/actuation 2 inh inhalation Q6H PRN shortness 11/04/21 breath activated powder inhaler of breath or wheezing #1 ea loratadine 10 mg tablet 10 mg PO DAILY #30 tabs 06/27/22 oseltamivir 75 mg capsule 75 mg PO Q12H 5 days #10 caps 12/07/22 prednisone 20 mg tablet 60 mg PO DAILY 4 days #12 tabs 12/07/22 Allergies Allergy/AdvReac Type Severity Reaction Status Date / Time lisinopril Allergy Severe rash Verified 12/07/22 13:13 tramadol Allergy Severe Unverified 12/07/22 13:13 ketorolac [From Toradol] Allergy Intermediate he Verified 12/07/22 13:13 stopped breathing General Stated Complaint: RespSymp MOISE: 2 Review of Systems All systems reviewed & are unremarkable except as noted in HPI and below Constitutional Constitutional: Denies chills Gastrointestinal Gastrointestinal: Denies abdominal pain, Denies nausea and Denies vomiting Integumentary/Breasts Skin/Breast: Denies rash PFSH All Active Problems (Updated 12/07/22 @ 15:46 by Brandyn Gomes MD) Acute bronchitis (Acute) Influenza A (Acute) Abscess of groin, right (Acute) Breast pain, right (Acute) Class 2 obesity without serious comorbidity with body mass index (BMI) of 37.0 to 37.9 in adult (Acute) Smoker unmotivated to quit (Acute) History of prediabetes (Acute) Gynecomastia, male (Acute) Marijuana smoker, continuous (Acute) Ankle sprain (Acute) Cellulitis of leg, right (Acute) Abrasion of leg, right, infected (Acute) Medical History Anxiety Hypertension Intracranial aneurysm Migraine Obesity (BMI 35.0-39.9 without comorbidity) Surgical History Brain aneurysm Coiling and clipping x 2 H/O right wrist surgery History of appendectomy History of thyroid surgery Tympanic membrane rupture with repair Social History Smoking/Tobacco Use Status: Current every day Tobacco Type: cigarettes Smoking risk assessment performed?: Yes Alcohol Intake: current Alcohol Intake frequency: a few times a month Alcohol type: beer and hard liquor Drug use: Current Sobriety Substance use type: does not use Do you feel safe at home: Yes Do you feel safe in your relationship?: Yes Exam Const General: no acute distress Orientation: alert HENMT Head: normal to inspection Ears: external ears normal General nose exam: external nose normal Mouth: moist mucous membranes Eyes General: appearance normal, both eyes and all related structures Neck Neck: normal visual inspection Chest Chest: normal inspection of the chest Resp Effort & Inspection: audible wheezes and cough Cardio Jugular venous pressure: no JVD Heart Sounds: no murmurs Skin General skin exam: no rashes or lesions noted Neuro General: patient alert and patient oriented x3 Extrem General: normal to inspection Psych Mental Status: mental status grossly normal Course Vital Signs Vital signs: Vital Signs Temperature 38.6 C H 12/07/22 13:10 Pulse 98 H 12/07/22 13:10 Respiratory Rate 30 H 12/07/22 13:10 Blood Pressure 147/132 H 12/07/22 13:10 Pulse Oximetry 95 12/07/22 13:10 Temperature 38.6 C H 12/07/22 13:10 Temperature Source Oral 12/07/22 13:10 Pulse 98 H 12/07/22 13:10 Respiratory Rate 30 H 12/07/22 13:10 Blood Pressure 147/132 H 12/07/22 13:10 Blood Pressure Position Supine 12/07/22 13:10 Pulse Oximetry 95 12/07/22 13:10 Oxygen Delivery Method Room Air 12/07/22 13:10 Oxygen Flow Rate 0 12/07/22 13:10 Pain Level 8 12/07/22 13:10
[2022-12-07] MEDS: Albuterol/Ipratropium 3 ML UPD VIAL UPD (13:31)
[2022-12-07] MEDS: methylPREDNISolone SUCC 125 MG VIAL IVP (13:31)
[2022-12-07] MEDS: Normal Saline 1,000 ML 1000 ML IV (13:32)
[2022-12-07 13:41] LABS: Lactate 2.2 mmol/L (0.6-1.4)
[2022-12-07 13:47] LABS: Abs Immature Grans 0.07 10^3/uL (0.0-0.06); Absolute Basophil Count 0.08 10^3/uL (0.0-0.2); Absolute Eosinophil Count 0.03 10^3/uL (0.0-0.7); Absolute Lymphocyte Count 1.56 10^3/uL (1.2-3.4); Basophils % 0.5; Eosinophils % 0.2; HCT 42.3 % (40.0-50.0); HGB 14.8 g/dL (13.5-17.5); Immature Grans % 0.4; Lymphocytes % 9.2; MCH 32.2 pg (27.0-33.0); MCV 92 fL (80-95); MPV 9.4 fL (8.0-11.0); Monocytes % 5.9; Neutrophils % 83.8; Platelet Count 259 10^3/uL (130-400); RDW 11.9 % (11.8-14.1); RDW-SD 39.9 fL; WBC 16.92 10^3/uL (4.4-10.8)
[2022-12-07] MEDS: Acetaminophen 500 MG TAB 1000 MG PO (13:47)
[2022-12-07 13:53] LABS: Absolute Neutrophil Count 14.18 10^3/uL (1.2-6.7)
[2022-12-07 13:59] LABS: ALT 38 U/L (16-63); AST 31 U/L (15-37); Albumin 3.9 g/dL (3.4-5.0); Alkaline Phosphatase 98 U/L (46-116); Anion Gap 7.6 mmol/L (3-11); BUN 11 mg/dL (7-18); Bilirubin, Total 0.7 mg/dL (0.2-1.0); CO2 27.4 mmol/L (21.0-32.0); CREATININE 1.1 mg/dL (0.70-1.30); Calcium 8.6 mg/dL (8.5-10.1); Chloride 105 mmol/L (98-107); Estimated GFR 83.84 (mL/min/1.73m2); Glucose 124 mg/dL (74-106); Magnesium 1.6 mg/dL (1.8-2.4); Sodium 140 mmol/L (136-145); Total Protein 7.4 g/dL (6.4-8.2); Troponin I < 50 ng/L (<or=60)
[2022-12-07 14:09] LABS: COVID-19 PCR Negative (Negative); Influenza A PCR Positive (Negative); Influenza B PCR Negative (Negative); RSV PCR Negative (Negative)
[2022-12-07 14:10] LABS: Source Nasopharynx
[2022-12-07 14:14] LABS: Procalcitonin < 0.1 ng/mL
--- NOTE | 2022-12-07 14:59 | DI.VRAD_ITS ---
PROCEDURE INFORMATION: Exam: XR Chest Exam date and time: 12/07/2022 2:08 PM Age: 47 years old Clinical indication: Other: Cough TECHNIQUE: Imaging protocol: Radiologic exam of the chest. Views: 1 view. COMPARISON: CR XR CHEST 2V PA LATERAL 06/27/2022 1:14 AM FINDINGS: Lungs: Unremarkable. No consolidation. Pleural spaces: Unremarkable. No pleural effusion. No pneumothorax. Heart/Mediastinum: Unremarkable. No cardiomegaly. Bones/joints: Unremarkable. IMPRESSION: No acute findings. Dictated and Authenticated by: Lena Nascimento MD. Ordering:SUBHASH Ahumada MD
[2022-12-07] MEDS: Albuterol HFA 8 GM 60 PUFF INH IH (16:02)
== END 2022-12-07 16:04 | disposition home or self-care (01) ==
PROVIDERS: Emergency Provider Emergency Medicine; PCP Internal Medicine
DX: J10.1 Influenza due to other identified influenza virus with other respiratory manifestations (principal); Z20.822 Contact with and (suspected) exposure to COVID-19; I10 Essential (primary) hypertension
CPT/HCPCS: 36415; 80053; 84145; 87040; 87637; 93005; 94640; 96361; 96374; 99284; 71045; 83605; 83735; 84484; 85025; 93010; J2930; J7620

== ENCOUNTER 2023-01-24 19:47 | Outpatient (REF) | payer OTHER, SELFPAY ==
[2023-01-24 21:25] LABS: TSH (W/Ref FT4) 1.05 uIU/mL (0.36-3.74)
== END 2023-01-24 19:48 | disposition home or self-care (01) ==
LOC: NCHCN 19:47
PROVIDERS: PCP Internal Medicine; Visit Provider Family Medicine
DX: E11.65 Type 2 diabetes mellitus with hyperglycemia (principal); E89.0 Postprocedural hypothyroidism; I10 Essential (primary) hypertension; Z72.0 Tobacco use
CPT/HCPCS: 84443

== ENCOUNTER 2023-06-27 12:53 | Outpatient (CLI) | payer OTHER, SELFPAY ==
[2023-06-27] MEDS: Barium Sulfate 2% W/V-Berry Smoothie 450 ML BTL PO (13:32)
[2023-06-27] MEDS: Normal Saline - Diluent 50 ML VIAL IJ (15:19)
[2023-06-27] MEDS: Normal Saline Flush 10 ML SYR IJ (15:20)
[2023-06-27] MEDS: Omnipaque 350 MG/ML 100 ML BTL IJ (15:25)
--- NOTE | 2023-06-27 15:28 | DI.CT_ITS ---
Exam(s) CT ABDOMEN PELVIS W EXAM: CT ABDOMEN PELVIS W CLINICAL HISTORY: LUQ ABD PAIN,EPIGASTRIC YASSINE,DIARRHEA,WORSE WITH EATING TECHNIQUE: Imaging Protocol: Axial computed tomography images with coronal and sagittal reformatted images were created and reviewed CONTRAST MATERIAL: Intravenous: Omnipaque 350 Contrast volume:100 mL Oral: No COMPARISON: CT ABD PELVIS WITH CONTRAST from 12/04/[address] thorax abdomen CTA from 11/25/[address] CHEST PE CTA from 12/23/[address] BRAIN NECK CTA from 06/27/2022 FINDINGS: ABDOMEN: Lung Bases: Normal where visualized. Liver: Normal density. There are multiple round hypodensities in the liver. Several of these are sim ilar in appearance compared to the examination from 11/25/2018. Some of them are too small for critical access hospital er characterization. Further evaluation with an MRI of the abdomen is recommended. Portal, Superior Mesenteric, and Splenic Veins: Unremarkable. Gallbladder and Biliary Tract: No radiodense calculus or dilation. Pancreas: Normal density, no abnormal calcifications or inflammatory process. Spleen: Normal. Adrenals: No masses seen. Kidneys: Normal size, contour and axis. No radiodense stones or obstructive uropathy. No masses seen. Abdominal Aorta: Abdominal portion non-dilated. Bowel: No obstruction or bowel wall thickening. There is no evidence of appendicitis. Peritoneal Cavity: No ascites, collection or mesenteric inflammatory response. No free air. Lymph Nodes: Within normal limits. Bones: Within normal limits for the patient's age. There is a nerve stimulating device. Soft Tissues: Unremarkable. PELVIS: Bladder: There is diffuse thickening of the wall of the urinary bladder. The bladder is incompletely distended limiting evaluation. Reproductive Organs: Prostate gland at the upper limits of normal in size. Lymph Nodes: Within normal limits. Bones: Within normal limits for the patient's age. IMPRESSION: 1. No evidence of nephrolithiasis or hydronephrosis. 2. Tiny hypodensities seen within the liver. Several of these are stable compared to the prior examin ation however some of the appear new. An MRI of the abdomen is recommended for further evaluation. 3. Unremarkable bowel. 4. Diffuse thickening of the wall of the urinary bladder. This may be due to incomplete distention. C ystitis cannot be excluded. Please correlate clinically. RADIATION DOSE DELIVERED: 1,243.43mGy.cm Total DLP DATA REPOSITORY: All CT scans at this facility are submitted to the National Radiology Data Registry (NRDR) Dose Index Registry (DIR) with the [employer] ([employer]). RADIATION OPTIMIZATION: All CT scans at this facility use at least one of these dose optimization te chniques: automated exposure control; mA and/or kV adjustment per patient size (includes targeted exa ms where dose is matched to clinical indication); or iterative reconstruction.
== END 2023-06-27 13:13 ==
LOC: DI 12:53
PROVIDERS: PCP Internal Medicine; Visit Provider Family Medicine
DX: K76.89 Other specified diseases of liver (principal)
CPT/HCPCS: 74177; J3490

== ENCOUNTER 2023-06-27 19:47 | Outpatient (REF) | payer OTHER, SELFPAY ==
[2023-06-27 14:19] LABS: Abs Immature Grans 0.06 10^3/uL (0.0-0.06); Absolute Basophil Count 0.07 10^3/uL (0.0-0.2); Absolute Eosinophil Count 0.18 10^3/uL (0.0-0.7); Absolute Monocyte Count 0.79 10^3/uL (0.1-0.8); Absolute Neutrophil Count 6.95 10^3/uL (1.2-6.7); Basophils % 0.7; Eosinophils % 1.7; HCT 45.8 % (40.0-50.0); Immature Grans % 0.6; Lymphocytes % 25.1; MCH 32.3 pg (27.0-33.0); MCHC 34.9 % (32.0-36.0); MCV 92 fL (80-95); MPV 9.9 fL (8.0-11.0); Monocytes % 7.3; Neutrophils % 64.6; Platelet Count 266 10^3/uL (130-400); RBC 4.96 10^6/uL (4.36-5.78); RDW 12.1 % (11.8-14.1); RDW-SD 41.3 fL; WBC 10.75 10^3/uL (4.4-10.8)
[2023-06-27 14:34] LABS: ALT 44 U/L (16-63); AST 20 U/L (15-37); Albumin 3.9 g/dL (3.4-5.0); Alkaline Phosphatase 73 U/L (46-116); Anion Gap 9.3 mmol/L (3-11); BUN 19 mg/dL (7-18); Bilirubin, Total 0.4 mg/dL (0.2-1.0); C-Reactive Protein 0.24 mg/dL (0.0-0.3); CO2 25.7 mmol/L (21.0-32.0); CREATININE 0.9 mg/dL (0.70-1.30); Calcium 8.6 mg/dL (8.5-10.1); Chloride 108 mmol/L (98-107); Estimated GFR 106.67 (mL/min/1.73m2); Glucose 141 mg/dL (74-106); Lipase 35 U/L (16-77); Potassium 3.8 mmol/L (3.5-5.1); Sodium 143 mmol/L (136-145); Total Protein 7.3 g/dL (6.4-8.2)
== END 2023-06-27 19:48 | disposition home or self-care (01) ==
LOC: NCHCN 19:47
PROVIDERS: PCP Internal Medicine; Visit Provider Family Medicine
DX: R10.13 Epigastric pain (principal); R10.12 Left upper quadrant pain; R19.7 Diarrhea, unspecified
CPT/HCPCS: 80053; 83690; 85025; 86140

== ENCOUNTER 2023-07-01 16:48 | Outpatient (REF) | payer OTHER, SELFPAY | END 2023-07-01 16:49 | disposition home or self-care (01) | LOC: NCHCN 16:48 | PROVIDERS: PCP Internal Medicine; Visit Provider Internal Medicine | DX: R10.30 Lower abdominal pain, unspecified (principal) | CPT/HCPCS: 87086 ==

== ENCOUNTER → 2023-08-06 02:14 | Outpatient (CLI) | payer OTHER, SELFPAY ==
--- NOTE | 2023-08-06 | DI.RAD_ITS ---
Exam(s) XR LUMBAR SPINE AP, LAT EXAM: XR LUMBAR SPINE AP, LAT CLINICAL HISTORY: Z00.00, PRE MRI CLEARANCE-CHECKING LEADS OF STIMULATOR. TECHNIQUE: 2D digital imaging was performed of the lumbar spine. Two images were obtained. AP and lateral views were obtained. COMPARISON: CT CT thorax abdomen CTA from 11/25/[address] CHEST PE CTA from 12/23/2021 CR,XR XR CHEST 2V PA LATERAL from 06/27/[address] ABDOMEN PELVIS W from 06/27/2023 FINDINGS: BONES: No fracture or destructive lesion. Endplate osteophytes are seen at multiple levels. Degenera tive changes of the facets are seen at L5-S1. DISKS: There is mild disc space narrowing at T12-L1 and L5-S1. ALIGNMENT: Lumbar spinal alignment is within normal limits. No spondylolysis or spondylolisthesis. SOFT TISSUE: The nerve stimulating leads are is stable in position and intact. IMPRESSION: 1. Degenerative changes seen in the lumbar spine. 2. Unremarkable nerve stimulating device. Stable appearance when compared to the prior examinations. DATA REPOSITORY: RADIATION DOSE DELIVERED:
[2023-08-06] MEDS: Normal Saline - Diluent 50 ML VIAL IJ (09:40)
[2023-08-06] MEDS: Gadoterate meglumine 20 ML VIAL IVP (09:41)
--- NOTE | 2023-08-06 10:00 | DI.MRI_ITS ---
Exam(s) MR ABDOMEN WO/W EXAM: MR ABDOMEN WO/W CLINICAL HISTORY: LIVER LESION K76.9 HYPODENSITIES OF LIVER ON CT TECHNIQUE: Multiplanar multisequence MRI of the Abdomen was performed. CONTRAST MATERIAL: IV Contrast: 20 mL of Dotarem contrast administered. COMPARISON: CT CT ABDOMEN PELVIS W from 06/27/2023 FINDINGS: Liver: There are multiple round well-circumscribed lesions in the liver. The largest measures 1.6 cm and is located in the right lobe of the liver. They are all homogeneously hyperintense on the T2 we ighted images and hypointense on the T1 weighted images. None of the lesions show enhancement follow ing contrast administration and are consistent with cysts. Pancreas: There is a 3 mm cyst in the tail of the pancreas. Gallbladder and Bile Ducts: Cholelithiasis or polyps are seen. No biliary ductal dilatation. Adrenals: No adrenal mass is seen. Kidneys: Unremarkable. Spleen: Unremarkable. Bowel: Unremarkable. Aorta: Unremarkable. Soft Tissues: There is a small fat containing midline abdominal wall hernia. Bone: Unremarkable. Lymph Nodes: Unremarkable. IMPRESSION: 1. Multiple simple hepatic cysts. No suspicious liver masses. 2. Cholelithiasis or polyps in the gallbladder. Gallbladder ultrasound may be obtained for further e valuation. 3. Small fat containing midline abdominal wall hernia. DATA REPOSITORY:
== END ==
PROVIDERS: PCP Internal Medicine; Visit Provider Family Medicine
DX: Q44.6 Cystic disease of liver (principal); K80.00 Calculus of gallbladder with acute cholecystitis without obstruction
CPT/HCPCS: 74183; 72100

== ENCOUNTER 2023-11-28 16:04 | Outpatient (REF) | payer OTHER, SELFPAY ==
[2023-11-28 15:00] LABS: ALT 39 U/L (16-63); AST 17 U/L (15-37); Albumin 3.4 g/dL (3.4-5.0); Alkaline Phosphatase 81 U/L (46-116); Anion Gap 7.6 mmol/L (3-11); BUN 16 mg/dL (7-18); Bilirubin, Total 0.3 mg/dL (0.2-1.0); CO2 25.4 mmol/L (21.0-32.0); CREATININE 0.7 mg/dL (0.70-1.30); Calcium 8.3 mg/dL (8.5-10.1); Chloride 103 mmol/L (98-107); Cholesterol 233 mg/dL (<200); Estimated GFR 114.37 (mL/min/1.73m2); Glucose 204 mg/dL (74-106); HDL Cholesterol 30 mg/dL (40-60); Potassium 3.9 mmol/L (3.5-5.1); Sodium 136 mmol/L (136-145); TSH (W/Ref FT4) 2.09 uIU/mL (0.36-3.74); Triglyceride 723 mg/dL (<150)
[2023-11-28 15:32] LABS: LDL CHOLESTEROL 86 mg/dL (<100)
== END 2023-11-28 16:05 | disposition home or self-care (01) ==
LOC: NCHCN 16:04
PROVIDERS: PCP Internal Medicine; Visit Provider Family Medicine
DX: E03.9 Hypothyroidism, unspecified (principal); E11.9 Type 2 diabetes mellitus without complications
CPT/HCPCS: 80053; 80061; 83721; 84443

== ENCOUNTER 2024-04-30 12:10 | Emergency (ER) | payer OTHER, SELFPAY ==
[2024-04-30 12:18] VITALS: BP 161/106; PULSE 89; RESP 16; TEMP 37; O2SAT 98
--- NOTE | 2024-04-30 13:29 | W.ED.GENAD ---
Discharge Plan Disposition Patient Disposition: Home Condition: Stable Discharge Details Clinical Impression: Lumbar back sprain Primary Care Provider: Ryne Harris ED Provider: Tee Alford Home Meds and New Rx's Prescriptions: New cyclobenzaprine 10 mg tablet 10 mg PO TID PRN (Reason: lumbar spasm) Qty: 30 0RF lidocaine [Lidoderm] 5 % adhesive patch,medicated 1 patch topical DAILY Qty: 15 0RF Rx Instructions: leave on most painful area for up to 12 hrs prednisone 20 mg tablet 40 mg PO DAILY 5 Days Qty: 10 0RF Continued hydroxyzine HCl 25 mg tablet 25 mg PO QHS PRN aspirin 81 mg Tablet,Chewable 81 mg PO DAILY acetaminophen [Acetaminophen Extra Strength] 500 mg Tablet 1,000 mg PO PRN PRN metformin 500 mg tablet 1,000 mg PO DAILY Patient Comments: TAKE ONE TABLET BY MOUTH TWICE A DAY levothyroxine 50 mcg tablet 1 tab PO DAILY Patient Comments: TAKE ONE TABLET BY MOUTH EVERY DAY Discharge Instructions Instructions: Prednisone (By mouth), Cyclobenzaprine (By mouth), Oxycodone, Rapid Release (By mouth), Lidocaine Patch (On the skin), Low Back Strain (ED), Lower Back Exercises (ED) Additional Instructions: You were seen in the emergency department for your left lumbar back pain after 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 This is likely muscle strain and spasm and unlikely to be a spinal fracture, you have no signs of any spinal emergency like urinary retention, groin numbness or bowel incontinence. You need to be taking 1000 mg of Tylenol every 6 hours, intermediate between Tylenol doses please take 400 mg of ibuprofen also on a 6-hour schedule. 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 Apply an [id number] lidocaine patch to the area of pain for 12 hours each day. Take the 5-day prednisone burst. Take the provided oxycodone for breakthrough pain as needed. Alternate heat and ice to the area, perform lumbar back exercises and gentle massage to the area, there is no definitive cure for your back pain it will take 1 to 2 weeks for you to significantly improve, please follow-up with your orthospine doctor that performed your lumbar fusion should you have continuing symptoms or follow-up with physical therapy visits. Please return immediately to the ER for any severe increase in back pain with fever, paralysis of the lower extremities, urinary retention, bowel incontinence, numbness in the groin. Referrals: Ryne Harris MD [Primary Care Provider] - Discharge Data Discharge Date/Time-TO BE ENTERED AT DEPARTURE: 04/30/24 15:24 HPI General Date/Time Provider Initiated Documentation: 04/30/24 12:29. HPI Narrative: 48 year-old male presents to ED today by POV/ambulating with a chief complaint of L paraspinal lumbar back pain with onset last night- stepped down from his work truck and felt his back go out of alignment possibly. Has history of L5/S1 fusion in remote past. Quality described as pain with movement, pain with sitting, no radiation to groin numbness, urinary retention, bowel incontinence, paralysis of legs, weakness of legs, numbness of legs. Severity is described as severe, 14/10 calmly. Palliating factors include subtherapeutic Tylenol/ibuprofen. Provoking factors include nothing specific. Patient not anticoagulated. Related Data Home Medications Medication Instructions Recorded Confirmed aspirin 81 mg chewable tablet 81 mg PO DAILY 01/30/20 04/30/24 hydroxyzine HCl 25 mg tablet 25 mg PO QHS PRN 06/21/21 04/30/24 acetaminophen 500 mg tablet 1,000 mg PO PRN PRN 12/23/21 04/30/24 (Acetaminophen Extra Strength) levothyroxine 50 mcg tablet 1 tab PO DAILY 06/26/22 04/30/24 cyclobenzaprine 10 mg tablet 10 mg PO TID PRN lumbar spasm #30 04/30/24 tabs lidocaine 5 % topical patch 1 patch topical DAILY lumbar back 04/30/24 (Lidoderm) pain #15 ea metformin 500 mg tablet 1,000 mg PO DAILY 04/30/24 04/30/24 prednisone 20 mg tablet 40 mg (2 x 20 mg) PO DAILY lumbar 04/30/24 spasm 5 days #10 tabs Previous Rx's Medication Instructions Recorded cyclobenzaprine 10 mg tablet 10 mg PO TID PRN lumbar spasm #30 04/30/24 tabs lidocaine 5 % topical patch 1 patch topical DAILY lumbar back 04/30/24 (Lidoderm) pain #15 ea prednisone 20 mg tablet 40 mg (2 x 20 mg) PO DAILY lumbar 04/30/24 spasm 5 days #10 tabs Allergies Allergy/AdvReac Type Severity Reaction Status Date / Time lisinopril Allergy Severe rash Verified 04/30/24 13:37 ketorolac [From Toradol] Allergy Intermediate he Verified 04/30/24 13:37 stopped breathing tramadol Allergy Unknown Dizziness/L Unverified 04/30/24 13:37 ighthead General Stated Complaint: Nk/Back Pain MOISE: 4 Review of Systems All systems reviewed & are unremarkable except as noted in HPI and below Exam Narrative Exam Narrative: GENERAL APPEARANCE: Well-nourished, non-toxic, awake and alert, atraumatic, no acute distress. SKIN: Warm, pink, dry, intact, without rashes/lesions/ulcerations. HEAD: Normocephalic, atraumatic, normal hair distribution for gender/age. EYES: Pupils PERRLA, EOMs intact without nystagmus, normal conjunctiva, no exudates on lids/lashes. ENT: Nares patent, no circumoral cyanosis, no facial swelling NECK: Supple, trachea midline, painless cervical ROM. LUNGS/CHEST: Non-labored respirations, normal A/P diameter, symmetrical expansion, no chest wall deformity HEART (CV/PV): No peripheral edema, no JVD. ABDOMEN: Soft, non-distended, no guarding. MSK: Normal ROM, no swelling/deformity to bilateral UEs or LEs, moving all extremities without weakness, no cyanosis, spine midline without tenderness, normal curvature. BACK/LEs: Left lumbar paraspinal tenderness without vertebral midline crepitus or step-offs, no skin changes to the area, strength 5/5 in bilateral lower extremities, able to ambulate, no pain with passive SLR, sensation intact bilateral lower extremities, no saddle anesthesia NEURO: Mental Status AAOx4 - alert to person, place, time, events No facial droop, no forehead involvement. Motor: No focal weakness - strength 5/5 in bilateral UEs and LEs, proximal and distal, symmetric. Sensory: sensation intact to light touch globally. Gait normal: patient ambulated without ataxia into ED room. PSYCH: euthymic, cooperative, pleasant, appropriate speech Course Vital Signs Vital signs: Vital Signs Temperature 37.0 C 04/30/24 12:18 Pulse 89 04/30/24 12:18 Respiratory Rate 16 04/30/24 12:18 Blood Pressure 161/106 H 04/30/24 12:18 Pulse Oximetry 98 04/30/24 12:18 Temperature 37.0 C 04/30/24 12:18 Temperature Source Tympanic 04/30/24 12:18 Pulse 89 04/30/24 12:18 Respiratory Rate 16 04/30/24 12:18 Blood Pressure 161/106 H 04/30/24 12:18 Blood Pressure Position Sitting 04/30/24 12:18 Pulse Oximetry 98 04/30/24 12:18 Oxygen Delivery Method Room Air 04/30/24 12:18 Oxygen Flow Rate 0 04/30/24 12:18 Pain Level 10 04/30/24 12:18 Medical Decision Making This dictation utilizes [id number] dictation software and may contain unedited grammatical errors. 48 y/o M presents to ED today with a chief complaint of left lumbar back pain-onset last night while stepping down from his work truck, denies any trauma to the area. Patient denies any groin numbness, denies urinary retention or bowel incontinence, is able to ambulate but reports his pain is 14/10 with movement to the area, has a history of L5-S1 fusion in remote past. Patients' medical history: Obesity. Family and social history: Noncontributory. Pertinent exam findings / vital signs include BACK/LEs: Left lumbar paraspinal tenderness without vertebral midline crepitus or step-offs, no skin changes to the area, strength 5/5 in bilateral lower extremities, able to ambulate, no pain with passive SLR, sensation intact bilateral lower extremities, no saddle anesthesia. Differential / pathologies of concern include lumbar back sprain/spasm, unlikely vertebral fracture without trauma, not cauda equina. Diagnostic studies of: -None, I discussed his benign exam and paraspinal tenderness well away from the spine and that imaging was likely unnecessary until conservative treatment has been attempted. Interventions of: -Prescribed cyclobenzaprine as well as prednisone burst, counseled on therapeutic dosing of Tylenol and ibuprofen, Lidoderm patches, alternating heat and ice to the area, follow-up with physical therapy. ED Course/Assessment/Plan: 48-year-old male presents with left lumbar nontraumatic back pain after stepping down awkwardly from his work truck, he has history of L5-S1 fusion to this area. He has no concerning signs or symptoms of cauda equina, no major radicular findings on exam, no evidence to suggest any vertebral fracture or bony pathology. I counseled him on performing adequate dosing of Tylenol and ibuprofen as well as a prednisone burst and muscle relaxation, I stressed that he needs to follow-up with physical therapy most likely, stressed that he follow-up with his orthospine doctor should his symptoms continue or worsen for likely MRI at that time, stressed strict return criteria for any groin numbness, urinary retention, bowel incontinence, any paralysis or complete numbness of the lower extremities. Findings not consistent with neurovascular compromise, cauda equina syndrome. Disposition of Lumbar Back Sprain. Patient verbalized understanding of the plan and return to ED criteria and engaged in shared decision making. Medical Records Medical records reviewed: Yes I reviewed the patient's medical records. Quality:[facility] Health Related Social Needs: No Data to Display PFSH All Active Problems (Updated 04/30/24 @ 14:53 by JUAN Lua) Lumbar back sprain (Acute) Acute bronchitis (Acute) Abscess of groin, right (Acute) Breast pain, right (Acute) Class 2 obesity without serious comorbidity with body mass index (BMI) of 37.0 to 37.9 in adult (Acute) Smoker unmotivated to quit (Acute) History of prediabetes (Acute) Gynecomastia, male (Acute) Marijuana smoker, continuous (Acute) Ankle sprain (Acute) Cellulitis of leg, right (Acute) Abrasion of leg, right, infected (Acute) Medical History Anxiety Hypertension Intracranial aneurysm Migraine Obesity (BMI 35.0-39.9 without comorbidity) Surgical History Brain aneurysm Coiling and clipping x 2 H/O right wrist surgery History of appendectomy History of thyroid surgery Tympanic membrane rupture with repair Social History Smoking/Tobacco Use Status: Current every day Tobacco Type: cigarettes Smoking risk assessment performed?: Yes Alcohol Intake: current Alcohol Intake frequency: a few times a month Alcohol type: beer and hard liquor Drug use: Current Sobriety Substance use type: does not use Do you feel safe at home: Yes Do you feel safe in your relationship?: Yes
[2024-04-30] MEDS: oxyCODONE 5 MG TAB PO (14:05)
[2024-04-30] MEDS: Ibuprofen 400 MG TAB PO (14:05)
[2024-04-30] MEDS: predniSONE 20 MG TAB 40 MG PO (14:05)
[2024-04-30] MEDS: Cyclobenzaprine 10 MG TAB PO (14:06)
[2024-04-30] MEDS: Acetaminophen 500 MG TAB 1000 MG PO (14:06)
[2024-04-30] MEDS: Lidocaine 5% Patch 1 PATCH TP (14:06)
[2024-04-30 15:24] VITALS: BP 142/82; PULSE 72; RESP 18; TEMP 36.7; O2SAT 98
== END 2024-04-30 15:24 | disposition home or self-care (01) ==
PROVIDERS: Emergency Provider Physician Assistant; PCP Internal Medicine
DX: S33.5XXA Sprain of ligaments of lumbar spine, initial encounter (principal); I10 Essential (primary) hypertension; Z98.1 Arthrodesis status; Z79.82 Long term (current) use of aspirin; V58.4XXA Person boarding or alighting a pick-up truck or van injured in noncollision transport accident, initial encounter; Y99.0 Civilian activity done for income or pay
CPT/HCPCS: 99283; J7512

== ENCOUNTER 2025-03-11 08:04 | Emergency (ER) | payer OTHER, SELFPAY ==
[2025-03-11 08:06] VITALS: BP 169/105; PULSE 79; RESP 16; TEMP 36.8; O2SAT 96
--- NOTE | 2025-03-11 08:28 | W.ED.GENAD ---
Discharge Plan Disposition Patient Disposition: Home Discharge Details Clinical Impression: Otitis externa Primary Care Provider: Ryne Harris ED Provider: Fredy Morales Home Meds and New Rx's Prescriptions: New ciprofloxacin-dexamethasone 0.3-0.1 % drops,suspension 4 drp otic (ear) BID 7 Days Qty: 7.5 0RF No Action hydroxyzine HCl 25 mg tablet 25 mg PO QHS PRN aspirin 81 mg Tablet,Chewable 81 mg PO DAILY acetaminophen [Acetaminophen Extra Strength] 500 mg Tablet 1,000 mg PO PRN PRN metformin 500 mg tablet 1,000 mg PO BID Patient Comments: TAKE ONE TABLET BY MOUTH TWICE A DAY cyclobenzaprine 10 mg tablet 10 mg PO TID PRN (Reason: lumbar spasm) Qty: 30 0RF lidocaine [Lidoderm] 5 % adhesive patch,medicated 1 patch topical DAILY Qty: 15 0RF Rx Instructions: leave on most painful area for up to 12 hrs Discharge Instructions Instructions: Outer Ear Infection ED Additional Instructions: As discussed at this time it appears that you have an external ear infection. Please refrain from putting anything in the ear except for the prescribed eardrops. Monitor symptoms and return for any new or significant worsening of your condition otherwise follow-up with primary care provider if not improving after the antibiotics. Referrals: Ryne Harris MD [Primary Care Provider] - [facility] Mode of arrival: ambulatory. Date/Time Provider Initiated Documentation: 03/11/25 08:14. Limitations to Documentation: no limitations. Information obtained by: patient and RN notes reviewed. History of Present Illness 49 year old M presents to the emergency department with the chief complaint of Left ear pain, with intensity rated at 8. Quality is described as aching, Patient started experiencing this day(s) (2) No relieving factors improve symptom(s), No exacerbating factors reported . Patient notes no other symptoms.. Patient did receive the following treatments prior to arrival, none Related Data Home Medications ?Medication ?Instructions ?Recorded ?Confirmed aspirin 81 mg chewable tablet 81 mg PO DAILY 01/30/20 03/11/25 hydroxyzine HCl 25 mg tablet 25 mg PO QHS PRN 06/21/21 03/11/25 acetaminophen 500 mg tablet 1,000 mg PO PRN PRN 12/23/21 03/11/25 (Acetaminophen Extra Strength) cyclobenzaprine 10 mg tablet 10 mg PO TID PRN lumbar spasm #30 04/30/24 03/11/25 tabs lidocaine 5 % topical patch 1 patch topical DAILY lumbar back 04/30/24 03/11/25 (Lidoderm) pain #15 ea metformin 500 mg tablet 1,000 mg PO BID 04/30/24 03/11/25 ciprofloxacin 0.3 %-dexamethasone 4 drp otic (ear) BID 7 days #7.5 mL 03/11/25 0.1 % ear drops,suspension Previous Rx's ?Medication ?Instructions ?Recorded cyclobenzaprine 10 mg tablet 10 mg PO TID PRN lumbar spasm #30 04/30/24 tabs lidocaine 5 % topical patch 1 patch topical DAILY lumbar back 04/30/24 (Lidoderm) pain #15 ea ciprofloxacin 0.3 %-dexamethasone 4 drp otic (ear) BID 7 days #7.5 mL 03/11/25 0.1 % ear drops,suspension Allergies Allergy/AdvReac Type Severity Reaction Status Date / Time lisinopril Allergy Severe rash Verified 03/11/25 08:14 ketorolac (From Toradol) Allergy Intermediate he Verified 03/11/25 08:14 stopped breathing tramadol Allergy Unknown Dizziness/L Unverified 03/11/25 08:14 ighthead General Stated Complaint: EarProblem MOISE: 4 Review of Systems Constitutional Constitutional: Denies body ache(s), Denies chills, Denies fever(s) and Denies headache(s) ENT Ears, Nose, Mouth, and Throat: Reports as per HPI, Denies ear discharge, Reports otalgia, Denies facial pain, Denies headache(s), Denies nasal congestion and Denies sore throat Respiratory Respiratory: Denies cough Integumentary/Breasts Skin/Breast: Denies rash Neurologic Neurologic: Denies headache(s) Exam Const General: cooperative, no acute distress and not ill appearing Orientation: alert, awake and oriented x3 HENMT Head: normal to inspection Ears: external ears normal, TM normal on the right, mastoids normal and EAC abnormal erythema on the left, edema on the left and EAC tenderness on the left; no otic discharge General nose exam: external nose normal Mouth: moist mucous membranes Resp Effort & Inspection: normal respiratory effort, able to speak in complete sentences and no respiratory distress Skin General skin exam: no rashes or lesions noted Neuro General: patient alert, patient awake, patient oriented x3, moves all extremities and no focal motor deficits Sensory Exam: no sensory deficits noted Course Vital Signs Vital signs: Vital Signs Temperature 36.8 C 03/11/25 08:06 Pulse 79 03/11/25 08:06 Respiratory Rate 16 03/11/25 08:06 Blood Pressure 169/105 H 03/11/25 08:06 Pulse Oximetry 96 03/11/25 08:06 Temperature 36.8 C 03/11/25 08:06 Temperature Source Oral 03/11/25 08:06 Pulse 79 03/11/25 08:06 Respiratory Rate 16 03/11/25 08:06 Blood Pressure 169/105 H 03/11/25 08:06 Blood Pressure Position Sitting 03/11/25 08:06 Pulse Oximetry 96 03/11/25 08:06 Oxygen Delivery Method Room Air 03/11/25 08:06 Oxygen Flow Rate 0 03/11/25 08:06 Pain Level 8 03/11/25 08:06 Comment took excedrin at 1am initial BP: 172/100 03/11/25 08:06 Medical Decision Making Patient presenting to the emergency department for chief complaint of left ear pain. Patient reports this started 2 days ago and has slowly worsened. Initially was bilateral but right ear significantly improved but left ear has worsened in the last 12 hours. Patient states recurrent external ear infections and typically uses hydrogen peroxide that will help with initial symptoms but that did not help with this instance. Patient denies all other associated symptoms beyond pain and discomfort. Physical exam is consistent with otitis externa without noted complications otherwise. No TM rupture or mastoid pain noted. Will place patient on antibiotic steroid combo and have patient return for any new or worsening symptoms otherwise follow-up with primary care After discussion of diagnosis and plan of care patient has no further needs, questions, or concerns and states clear understanding to return to the emergency department for any worsening symptoms. This documentation was generated using [employer] dictation system, please disregard any oddities of phrase or misspellings. Quality:[facility] Health Related Social Needs: No Data to Display PFSH All Active Problems Otitis externa (Acute) Acute bronchitis (Acute) Abscess of groin, right (Acute) Breast pain, right (Acute) Class 2 obesity without serious comorbidity with body mass index (BMI) of 37.0 to 37.9 in adult (Acute) Smoker unmotivated to quit (Acute) History of prediabetes (Acute) Gynecomastia, male (Acute) Marijuana smoker, continuous (Acute) Ankle sprain (Acute) Cellulitis of leg, right (Acute) Abrasion of leg, right, infected (Acute) Medical History Migraine Anxiety Intracranial aneurysm Obesity (BMI 35.0-39.9 without comorbidity) Hypertension Surgical History Tympanic membrane rupture with repair History of thyroid surgery H/O right wrist surgery History of appendectomy Brain aneurysm Coiling and clipping x 2 Social History Smoking/Tobacco Use Status: Current every day Tobacco Type: cigarettes Smoking risk assessment performed?: Yes Alcohol Intake: current Alcohol Intake frequency: a few times a month Alcohol type: beer and hard liquor Drug use: Current Sobriety Substance use type: does not use Do you feel safe at home: Yes Do you feel safe in your relationship?: Yes
[2025-03-11 08:30] VITALS: BP 165/99; PULSE 78; RESP 22; TEMP 36.5; O2SAT 94
== END 2025-03-11 08:39 | disposition home or self-care (01) ==
PROVIDERS: Emergency Provider Nurse Practitioner Family; PCP Internal Medicine
DX: H60.92 Unspecified otitis externa, left ear (principal); I10 Essential (primary) hypertension; Z79.82 Long term (current) use of aspirin
CPT/HCPCS: 99283

== ENCOUNTER 2025-06-10 17:48 | Emergency (ER) | payer OTHER, SELFPAY ==
[2025-06-10 17:50] VITALS: BP 147/91; PULSE 94; RESP 20; TEMP 39.4; O2SAT 94
--- NOTE | 2025-06-10 18:05 | DI.RAD_ITS ---
Exam(s) XR CHEST 1V IN DI DEPT EXAM: XR CHEST 1V IN DI DEPT CLINICAL HISTORY: fever, eval for pneumonia TECHNIQUE: 2D digital imaging was performed. COMPARISON: CR,XR XR PORTABLE CHEST AP from 12/07/2022 FINDINGS: Lordotic positioning. The exam was performed on a stretcher. LUNGS: Clear. No pleural abnormality seen. HEART: Normal size. AORTA: Normal diameter. BONES: Unremarkable for age. Soft tissues: Unremarkable. IMPRESSION: No acute findings. The preliminary [facility] report was reviewed. DATA REPOSITORY: RADIATION DOSE DELIVERED:
[2025-06-10] MEDS: MORPHine 4 MG/ML SYR IVP (18:21)
[2025-06-10] MEDS: diphenhydrAMINE 50 MG/ML VIAL 25 MG IVP (18:21)
[2025-06-10 18:23] LABS: Abs Immature Grans 0.06 10^3/uL (0.0-0.06); BE (Venous) 3 mmol/L (-2-3); HCO3 (Venous) 27 mmol/L (23-28); HCT 45.5 % (40.0-50.0); HGB 15.6 g/dL (13.5-17.5); Immature Grans % 0.4 %; MCH 31.8 pg (27.0-33.0); MCHC 34.3 % (32.0-36.0); MCV 93 fL (80-95); MPV 9.7 fL (8.0-11.0); O2 Sat (Venous) 58 %; Platelet Count 241 10^3/uL (130-400); RBC 4.91 10^6/uL (4.36-5.78); RDW 11.9 % (11.8-14.1); RDW-SD 40.8 fL; TCO2 (Venous) 23 mmol/L (24-29); WBC 16.57 10^3/uL (4.4-10.8); pCO2 (Venous) 36 mmHg (41-51); pO2 (Venous) 26 mmHg
[2025-06-10] MEDS: Normal Saline - Diluent 50 ML VIAL IJ (18:28)
[2025-06-10] MEDS: Omnipaque 350 MG/ML 100 ML BTL IJ (18:29)
--- NOTE | 2025-06-10 18:30 | DI.CT_ITS ---
Exam(s) CT ABDOMEN PELVIS W EXAM: CT ABDOMEN PELVIS W CLINICAL HISTORY: Nausea vomiting periumbilical abdominal pain. TECHNIQUE: Imaging Protocol: Axial computed tomography images with coronal and sagittal reformatted images were created and reviewed CONTRAST MATERIAL: Intravenous: Omnipaque 350 Contrast volume:75 ml Oral: no COMPARISON: CT CT ABDOMEN PELVIS W from 06/27/2023 FINDINGS: ABDOMEN and PELVIS: Exam is limited by streak artifact due to patient arm position Lung Bases: No acute findings. Liver: Mildly enlarged. Mild hepatic steatosis. Stable cysts. No suspicious mass. Gallbladder and biliary tract: No radiodense calculus. No wall thickening or pericholecystic fluid. No biliary dilation. Pancreas: Normal density. No abnormal calcifications or inflammatory process. No evidence of mass. Spleen: Normal. Kidneys: Normal size, contour and axis. No radiodense stones. No obstructive uropathy. No suspicious masses seen. Adrenal glands: No masses seen. Vasculature: Abdominal aorta non-dilated. Soft tissues: Small fat containing hernias above the level of the umbilicus. Small fat containing hernia at the level of the umbilicus. Spinal stimulator device. Bladder: Nearly empty, not well evaluated. No gross wall thickening. No calculi.No focal mass. Bowel: No obstruction. There is diffuse wall thickening involving the ascending through descending colon, consistent with colitis. Peritoneal cavity: No ascites. No focal collection. No mesenteric inflammatory response. No free air. Bones: Stable mild compression fracture of superior endplate of L1. Advanced degenerative disc changes at L5-S1. Reproductive organs: Prostate upper limits of normal in size. Lymph nodes: No pathologically enlarged lymph nodes. IMPRESSION:: Findings consistent with colitis involving the ascending through descending colon. The preliminary [facility] report was reviewed. RADIATION DOSE DELIVERED: Total [facility] DATA REPOSITORY: All CT scans at this facility are submitted to the National Radiology Data Registry (NRDR) Dose Index Registry (DIR) with the [employer] ([employer]). RADIATION OPTIMIZATION: All CT scans at this facility use at least one of these dose optimization techniques: automated exposure control; mA and/or kV adjustment per patient size (includes targeted exams where dose is matched to clinical indication); or iterative reconstruction.
--- NOTE | 2025-06-10 18:31 | DI.CT_ITS ---
Exam(s) CT BRAIN NECK CTA EXAM: CT BRAIN NECK CTA CLINICAL HISTORY: Severe headache, right-sided, history of aneurysm. TECHNIQUE: Imaging Protocol: Axial CT angiography was performed with multi- slice acquisition and multi-planar and MIP reconstructions. CONTRAST MATERIAL: Intravenous: Omnipaque 350 Contrast volume:75 ml COMPARISON: CT CT BRAIN NECK CTA from 06/27/2022 FINDINGS: CT Head W/O and W contrast: Ventricles and Extra axial spaces: Normal in size and morphology for the patient's age. Hemorrhage: None. Cerebral parenchyma: No evidence of acute infarct or mass. 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 Midline shift: None. Brainstem/Cerebellum: No acute findings.. Calvarium: Normal. Visualized Paranasal sinuses/Mastoids: Clear. Soft Tissues: Unremarkable. Enhancement: Normal. Venous sinuses are patent. CTA Brain W: Internal Carotid Arteries: Right: No aneurysm, occlusion or significant stenosis. Left: No aneurysm, occlusion or significant stenosis. Middle Cerebral Arteries: Right: No aneurysm, occlusion or significant stenosis. Left: No aneurysm, occlusion or significant stenosis. Anterior Cerebral Arteries: Metallic coil at the anterior communicating artery with unchanged appearance. A stent is again noted extending across the anterior communicating artery from the left M 1 segment through right A2 segment. This appears patent. Right: No aneurysm, occlusion or significant stenosis. Left: No aneurysm, occlusion or significant stenosis. Posterior cerebral Arteries: Right: No aneurysm, occlusion or significant stenosis. Left: No aneurysm, occlusion or significant stenosis. Vertebral Arteries: Right: Stent in right distal vertebral artery. No aneurysm, occlusion or significant stenosis. Left: No aneurysm, occlusion or significant stenosis. Basilar Artery: No aneurysm, occlusion or significant stenosis. CTA Neck W: Common Carotid: No significant atherosclerotic changes. Right: No dissection, occlusion or significant stenosis. Left: No dissection, occlusion or significant stenosis. External Carotid: Right: No dissection, occlusion or significant stenosis. Left: No dissection, occlusion or significant stenosis. Internal Carotid: No significant atherosclerotic changes. Right: Tortuous in the midportion. No dissection, occlusion or significant stenosis. Left: Tortuous in the midportion no dissection, occlusion or significant stenosis. Vertebral Artery: Right: No dissection, occlusion or significant stenosis. Left: No dissection, occlusion or significant stenosis. Lung Apices: No acute findings. Bones: No acute abnormality. 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 There is a small low- density nodule in the left lobe, present previously. IMPRESSION: 1. CTA brain: JUAN CARLOS aneurysm coil. Patent stent from M1 through A2 segment. No significant stenosis or new aneurysm. 2. Head CT: No acute abnormality. Tiny old lacunar infarct in the right caudate. 3. CTA neck: No evidence of occlusion, significant stenosis or dissection. Tortuous bilateral internal carotid arteries. The preliminary [facility] report was reviewed. RADIATION DOSE DELIVERED: Total DLP DATA REPOSITORY: All CT scans at this facility are submitted to the National Radiology Data Registry (NRDR) Dose Index Registry (DIR) with the [employer] ([employer]). RADIATION OPTIMIZATION: All CT scans at this facility use at least one of these dose optimization techniques: automated exposure control; mA and/or kV adjustment per patient size (includes targeted exams where dose is matched to clinical indication); or iterative reconstruction.
[2025-06-10 18:37] LABS: INR 1.1 (0.9-1.1); PTT Activated 23.9 sec (20.6-30.2); Prothrombin Time 11.0 sec (9.1-11.1)
[2025-06-10 18:42] LABS: ALT 44 U/L (16-63); AST 17 U/L (15-37); Albumin 4.1 g/dL (3.4-5.0); Alkaline Phosphatase 72 U/L (46-116); Anion Gap 12.7 mmol/L (3-11); BUN 8 mg/dL (7-18); Bilirubin, Total 1.2 mg/dL (0.2-1.0); CO2 25.3 mmol/L (21.0-32.0); Calcium 9.1 mg/dL (8.5-10.1); Chloride 98 mmol/L (98-107); Estimated GFR 92.84 (mL/min/1.73m2); Glucose 161 mg/dL (74-106); Potassium 3.5 mmol/L (3.5-5.1); Sodium 136 mmol/L (136-145); Total Protein 7.8 g/dL (6.4-8.2)
[2025-06-10] MEDS: methylPREDNISolone SUCC 125 MG VIAL IVP (18:57)
[2025-06-10] MEDS: Lactated Ringers 1,000 ML 1000 ML IV (18:57)
[2025-06-10] MEDS: Prochlorperazine 10 MG/2 ML VIAL IVP (18:57)
[2025-06-10] MEDS: ACETAMINOPHEN 1,000 MG/100 ML BTL 400 MG IVPB (18:58)
[2025-06-10 19:07] LABS: Procalcitonin < 0.10 ng/mL
--- NOTE | 2025-06-10 19:39 | DI.[facility]_ITS ---
PROCEDURE INFORMATION: Exam: CTA Head Without And With Contrast, Arteriography Exam date and time: 06/10/2025 6:22 PM Age: 49 years old Clinical indication: Stroke-like symptoms; Altered mental status/memory loss and dizziness/giddiness and headache; Additional info: HX of brain bleed/ aneurysm TECHNIQUE: Imaging protocol: Computed tomographic angiography of the head without and with contrast. Exam focused on the arteries. 3D rendering (Not supervised by radiologist): MIP and/or 3D reconstructed images were created by the technologist. Radiation optimization: All CT scans at this facility use at least one of these dose optimization techniques: automated exposure control; mA and/or kV adjustment per patient size (includes targeted exams where dose is matched to clinical indication); or iterative reconstruction. Contrast material: [id number]; Contrast volume: 75 ml; Contrast route: INTRAVENOUS (IV); Other technique: STROKE PROTOCOL was implemented. COMPARISON: CT BRAIN NECK CTA 06/27/2022 12:55 AM FINDINGS: ANTERIOR CIRCULATION: Right internal carotid artery: The right ICA petrous, cavernous, and supraclinoid segments are unremarkable. Right middle cerebral artery: Unremarkable. No occlusion or significant stenosis. No aneurysm. Right anterior cerebral artery: No acute finding. No occlusion or significant stenosis. 6 mm metallic density at the anterior communicating artery distribution consistent with prior coil embolization treatment of an aneurysm, unchanged. Patent vascular stent in place from the left A1 through right A2 segments, unchanged. Left internal carotid artery: The left ICA petrous, cavernous, and supraclinoid segments are unremarkable. Left middle cerebral artery: Unremarkable. No occlusion or significant stenosis. No aneurysm. Left anterior cerebral artery: Patent vascular stent extending from the mid left A1 segment through the right A2 segment across the anterior communicating artery, unchanged. No occlusion or significant stenosis. No new aneurysm. POSTERIOR CIRCULATION: Right vertebral artery: Vascular stent in the distal V4 segment which is patent and grossly unchanged. No occlusion or significant stenosis. No aneurysm. Left vertebral artery: Unremarkable. No occlusion or significant stenosis. No aneurysm. Basilar artery: Unremarkable. No occlusion or significant stenosis. No aneurysm. Right posterior cerebral artery: Moderate-sized right posterior communicating artery present. No occlusion or significant stenosis. No aneurysm. Left posterior cerebral artery: Unremarkable. No occlusion or significant stenosis. No aneurysm. Veins: The dural venous sinuses and major cortical veins enhance appropriately without evidence of thrombosis. HEAD: Brain: The IACs are grossly normal. No extra-axial fluid collections. No evidence of acute intracranial hemorrhage. Cerebral/cerebellar keys-white differentiation is well maintained. No intracranial mass lesions. No midline shift or herniation. No enhancing brain lesions or vascular malformations are identified. Cerebral ventricles: Ventricles normal. Pituitary gland and sella: The sella is grossly normal. Bones: No acute osseous findings. Orbital cavities: No acute intraorbital findings. Paranasal sinuses: Visualized paranasal sinuses are clear. Mastoid air cells: Visualized mastoid air cells are clear. Soft tissues: No acute soft tissue findings. IMPRESSION: 1. No acute vascular abnormalities. No evidence of large vessel occlusion or significant stenosis. 2. No acute intracranial process. No intracranial hemorrhage or mass effect. 3. 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 4. Patent stent in the right vertebral artery distal V4 segment, unchanged. ASSESSMENT: ASPECTS ([place] Stroke Program Early CT Score) is 10. PROCEDURE INFORMATION: Exam: CTA Neck Without And With Contrast Exam date and time: 06/10/2025 6:22 PM Age: 49 years old Clinical indication: Stroke-like symptoms; Altered mental status/memory loss and dizziness/giddiness and headache; Additional info: HX of brain bleed/ aneurysm TECHNIQUE: Imaging protocol: Computed tomographic angiography of the neck without and with contrast. Exam focused on the cervical segments of the vasculature. 3D rendering (Not supervised by radiologist): MIP and/or 3D reconstructed images were created by the technologist. Radiation optimization: All CT scans at this facility use at least one of these dose optimization techniques: automated exposure control; mA and/or kV adjustment per patient size (includes targeted exams where dose is matched to clinical indication); or iterative reconstruction. Contrast material: [id number]; Contrast volume: 75 ml; Contrast route: INTRAVENOUS (IV); COMPARISON: CT BRAIN NECK CTA 06/27/2022 12:55 AM FINDINGS: Right common carotid artery: Normal. No stenosis. No dissection or occlusion. Right internal carotid artery: Moderate-severe tortuosity of the mid segment. No stenosis. No dissection or occlusion. Right external carotid artery: Normal. No stenosis. No dissection or occlusion. Left common carotid artery: Variant origin from the brachiocephalic artery. No stenosis. No dissection or occlusion. Left internal carotid artery: Moderate-severe tortuosity of the mid segment. No stenosis. No dissection or occlusion. Left external carotid artery: Normal. No stenosis. No dissection or occlusion. Right vertebral artery: Right vertebral artery is mildly dominant. No stenosis. No dissection or occlusion. Left vertebral artery: Normal. No stenosis. No dissection or occlusion. Brachiocephalic artery: The brachiocephalic artery is unremarkable. Right subclavian artery: The right subclavian artery is unremarkable. Left subclavian artery: The left subclavian artery is unremarkable. Aorta: The visualized aortic arch is unremarkable. 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 15 mm low-density nodule in the left thyroid lobe is grossly unchanged back to 06/27/[address] Nonemergent thyroid ultrasound assessment recommended unless previously assessed. Soft tissues: No significant soft tissue swelling or hematoma. Bones/joints: No acute osseous abnormalities are identified. Lungs: Granulomatous calcification in the right upper lobe. IMPRESSION: 1. No vascular occlusions or significant stenosis. No acute findings. 2. Bilateral moderate-severe ICA tortuosity. This pattern can be seen with underlying chronic connective tissue disorders, correlate clinically. 3. 15 mm low-density nodule in the left thyroid lobe. Recommend nonemergent thyroid ultrasound evaluation unless previously assessed. REFERENCES: NASCET CRITERIA. The degree of stenosis in the cervical segment of the internal carotid artery is based on NASCET criteria. Normal is no stenosis. Mild is less than 50% stenosis. Moderate is 50-69% stenosis. Severe is 70% to 99% stenosis. Total occlusion is no detectable patent lumen. Dictated and Authenticated by: Bang Talamantes MD. Orderin Ranjit Oliveira MD
--- NOTE | 2025-06-10 19:46 | DI.[facility]_ITS ---
PROCEDURE INFORMATION: Exam: CT Abdomen And Pelvis With Contrast Exam date and time: 06/10/2025 6:22 PM Age: 49 years old Clinical indication: Nausea and vomiting; Nausea vomiting periumbilical abdominal pain TECHNIQUE: Imaging protocol: Computed tomography of the abdomen and pelvis with contrast. Radiation optimization: All CT scans at this facility use at least one of these dose optimization techniques: automated exposure control; mA and/or kV adjustment per patient size (includes targeted exams where dose is matched to clinical indication); or iterative reconstruction. Contrast material: [id number]; Contrast volume: 75 ml; Contrast route: INTRAVENOUS (IV); COMPARISON: MR ABDOMEN WO/W 08/06/2023 9:14 AM FINDINGS: Tubes, catheters and devices: Sacral stimulator device in place. Lungs: Mild bilateral lower lobe bronchial wall thickening, compatible with reactive airway disease or bronchitis. Liver: Several hepatic hypodensities, likely cysts, although some are too small to definitively characterize. Mild hepatomegaly. Gallbladder and biliary ducts: Normal. Pancreas: Normal. Spleen: Normal. Adrenal glands: Normal. No mass. Kidneys and ureters: Normal. Stomach and bowel: Several loops of nondilated, gas and fluid-filled distal small bowel, which is a nonspecific finding, but can be seen with enteritis. Moderate wall thickening of the ascending, transverse, and descending colon, with minimal adjacent fat stranding, likely infectious/inflammatory colitis. Appendix: No evidence of appendicitis. Intraperitoneal space: Unremarkable. No free air. No significant fluid collection. Vasculature: Phleboliths within the pelvis. Lymph nodes: Unremarkable. No enlarged lymph nodes. Urinary bladder: Unremarkable as visualized. Reproductive: Unremarkable as visualized. Bones/joints: L5-S1 degenerative disc disease, disc space narrowing and posterior disc osteophyte complex formation, causing ventral thecal sac indentation and bilateral neural foraminal narrowing. Soft tissues: Small fat containing ventral hernias. IMPRESSION: 1. Mild bilateral lower lobe bronchial wall thickening, compatible with reactive airway disease or bronchitis. 2. Several loops of nondilated, gas and fluid-filled distal small bowel, which is a nonspecific finding, but can be seen with enteritis. 3. Moderate wall thickening of the ascending, transverse, and descending colon, with minimal adjacent fat stranding, likely infectious/inflammatory colitis. Dictated and Authenticated by: Cali Sharpe MD. Orderin Ranjit Oliveira MD
--- NOTE | 2025-06-10 19:47 | DI.[facility]_ITS ---
PROCEDURE INFORMATION: Exam: XR Chest Exam date and time: 06/10/2025 6:43 PM Age: 49 years old Clinical indication: Fever, eval for pneumonia TECHNIQUE: Imaging protocol: Radiologic exam of the chest. Views: 1 view. COMPARISON: CR XR PORTABLE CHEST AP 12/07/2022 2:08 PM FINDINGS: Lungs: Normal. Pleural spaces: Normal. Heart/Mediastinum: Normal. Bones/joints: No acute abnormality. IMPRESSION: No acute findings. Dictated and Authenticated by: Cali Sharpe MD. Orderin Ranjit Oliveira MD
[2025-06-10 20:38] LABS: Glucose Negative (Negative)
[2025-06-10] MEDS: Normal Saline 1,000 ML 1000 ML IV (20:58)
[2025-06-10] MEDS: CIPROFLOXACIN 400 MG/200 ML BAG 200 MG IVPB (21:02)
--- NOTE | 2025-06-10 21:14 | W.ED.GENAD ---
Discharge Plan Disposition Patient Disposition: Home Condition: Good Discharge Details Clinical Impression: Colitis, Headache, Thyroid nodule Primary Care Provider: Huong Gordon ED Provider: Tee Church Home Meds and New Rx's Prescriptions: New ciprofloxacin HCl [Cipro] 500 mg tablet 500 mg PO BID 10 Days Qty: 20 0RF metronidazole 500 mg tablet 500 mg PO Q8H 10 Days Qty: 30 0RF No Action hydroxyzine HCl 25 mg tablet 25 mg PO QHS PRN aspirin 81 mg Tablet,Chewable 81 mg PO DAILY acetaminophen [Acetaminophen Extra Strength] 500 mg Tablet 1,000 mg PO PRN PRN metformin 500 mg tablet 1,000 mg PO BID Patient Comments: TAKE ONE TABLET BY MOUTH TWICE A DAY cyclobenzaprine 10 mg tablet 10 mg PO TID PRN (Reason: lumbar spasm) Qty: 30 0RF lidocaine [Lidoderm] 5 % adhesive patch,medicated 1 patch topical DAILY Qty: 15 0RF Rx Instructions: leave on most painful area for up to 12 hrs Discharge Instructions Instructions: Colitis, Thyroid nodules Additional Instructions: At this time you have evidence of colitis, and we suspect this is causing your fever and abdominal pain symptoms. Please stick with mild bland diet. Please take the antibiotic as prescribed. These have been sent to your pharmacy on file. As we discussed together if you have a return of your headache please return immediately for reassessment and reevaluation. Additionally, there was an incidental noting of a thyroid nodule on your CT imaging. Please follow-up closely with your primary care provider for reassessment of this. If you notice any worsening of your symptoms, or any new symptoms such as vomiting, diarrhea, fever, chills, shortness of breath, chest pain, numbness, weakness, or fainting , please return immediately to the emergency department for reevaluation. Please follow up with your primary care provider as soon as possible for reassessment and reevaluation. As always, it was a pleasure participating in your medical care today. Referrals: Huong Gordon [Primary Care Provider, Medicine] HPI General Date/Time Provider Initiated Documentation: 06/10/25 18:04. HPI Narrative: This is a pleasant 49-year-old male with a past medical history of diabetes, migraines, intracranial aneurysm requiring coiling and clips in 2019, appendectomy, who presents today for evaluation of headache, abdominal pain, and fever. Patient states that starting 3 days ago he had onset of headache similar to his normal ones however it is gradually worsened over the last 3 days. His blood sugar has been increasing, the headache goes from the right evangelical to the back of his head. Then over the last 24 to 48 hours he has had some vomiting, abdominal pain, and developed a fever. He denies any neck stiffness. He denies any vision changes. He denies any bloody diarrhea. He denies any hematemesis. He states that normally his headaches do not have associated abdominal pain fever. No other complaints at this time. Headache was not thunderclap in onset. He denies hearing changes. Related Data Home Medications ?Medication ?Instructions ?Recorded ?Confirmed aspirin 81 mg chewable tablet 81 mg PO DAILY 01/30/20 03/11/25 hydroxyzine HCl 25 mg tablet 25 mg PO QHS PRN 06/21/21 03/11/25 acetaminophen 500 mg tablet 1,000 mg PO PRN PRN 12/23/21 03/11/25 (Acetaminophen Extra Strength) cyclobenzaprine 10 mg tablet 10 mg PO TID PRN lumbar spasm #30 04/30/24 03/11/25 tabs lidocaine 5 % topical patch 1 patch topical DAILY lumbar back 04/30/24 03/11/25 (Lidoderm) pain #15 ea metformin 500 mg tablet 1,000 mg PO BID 04/30/24 03/11/25 ciprofloxacin HCl 500 mg tablet 500 mg PO BID 10 days #20 tabs 06/10/25 (Cipro) metronidazole 500 mg tablet 500 mg PO Q8H 10 days #30 tabs 06/10/25 Previous Rx's ?Medication ?Instructions ?Recorded cyclobenzaprine 10 mg tablet 10 mg PO TID PRN lumbar spasm #30 04/30/24 tabs lidocaine 5 % topical patch 1 patch topical DAILY lumbar back 04/30/24 (Lidoderm) pain #15 ea ciprofloxacin HCl 500 mg tablet 500 mg PO BID 10 days #20 tabs 06/10/25 (Cipro) metronidazole 500 mg tablet 500 mg PO Q8H 10 days #30 tabs 06/10/25 Allergies Allergy/AdvReac Type Severity Reaction Status Date / Time lisinopril Allergy Severe rash Verified 03/11/25 08:14 ketorolac (From Toradol) Allergy Intermediate he Verified 03/11/25 08:14 stopped breathing tramadol Allergy Unknown Dizziness/L Unverified 03/11/25 08:14 ighthead General Stated Complaint: Headache MOISE: 2 Exam Narrative Exam Narrative: 1.Const: Well-nourished, Well-developed, appearing stated age 2.Eyes: PERRL, no conjunctival injection, and symmetrical lids. 3.ENT: Atraumatic external nose and ears. Dry MM. Neck: Symmetric, trachea midline, No thyromegaly. Patient demonstrates good movement of cervical neck. There is no nuchal rigidity, no nuchal tenderness. Patient is able to flex the neck without any difficulty or significant pain. Negative Kernig's and Brudzinski sign. 4.CVS: +S1/S2, Peripheral pulses 2+ and equal in all extremities. Brisk capillary refill in all extremities. 5.RESP: Unlabored respiratory effort. Clear to auscultation bilaterally. No wheezes rales or rhonchi 6.GI: Soft, nondistended, mild tenderness throughout on palpation of the abdomen. No focality though. 7.MSK: Normocephalic/Atraumatic, Extremities w/o deformity or ttp No cyanosis or clubbing, Normal movement of all extremities 8.Skin: Warm, Dry. No rashes or lesions. 9.Neuro: research program manager II-XII grossly intact. Sensation grossly intact, no focal neurologic deficits. All 6 cardinal planes of vision are fully intact. No evidence of rotatory or vertical nystagmus. The patient demonstrated a normal [id number], good dexterity. There was no evidence of dysdiadochokinesia. [id number] testing was normal. Sensation was intact bilaterally as well as muscle strength bilaterally for all extremities. Patient was able to verbalize butter cup with no slurring, or miss pronunciation. 10.Psych: (AAO) x3. However family does feel that he is slightly off compared to his baseline. Course Vital Signs Vital signs: Vital Signs Temperature 39.4 C H 06/10/25 17:50 Pulse 94 H 06/10/25 17:50 Respiratory Rate 20 06/10/25 17:50 Blood Pressure 147/91 H 06/10/25 17:50 Pulse Oximetry 94 06/10/25 17:50 Temperature 39.4 C H 06/10/25 17:50 Temperature Source Oral 06/10/25 17:50 Pulse 94 H 06/10/25 17:50 Respiratory Rate 20 06/10/25 17:50 Blood Pressure 147/91 H 06/10/25 17:50 Pulse Oximetry 94 06/10/25 17:50 Oxygen Delivery Method Room Air 06/10/25 17:50 Oxygen Flow Rate 0 06/10/25 17:50 Pain Level 10 06/10/25 17:50 Lab/Test Results Lab/Test Results: 06/10/25 20:25 Urine - Voided Urine Culture - Pending 06/10/25 18:04 Blood Blood Culture - Pending 06/10/25 18:04 Blood Blood Culture - Pending Laboratory Tests Range/Units 06/10/25 06/10/25 18:14 20:25 WBC (4.4-10.8) 10^3/uL 16.57 H RBC (4.36-5.78) 10^6/uL 4.91 Hgb (13.5-17.5) g/dL 15.6 Hct (40.0-50.0) % 45.5 MCV (80-95) fL 93 MCH (27.0-33.0) pg 31.8 MCHC (32.0-36.0) % 34.3 RDW (11.8-14.1) % 11.9 Plt Count (130-400) 10^3/uL 241 MPV (8.0-11.0) fL 9.7 Immature Gran % % 0.4 Neutrophils % % 85.2 Lymphocytes % % 7.7 Monocytes % % 6.5 Eosinophils % % 0.0 Basophils % % 0.2 Nucleated RBC % (0.0-0.3) % 0.0 Absolute Neutrophils (1.2-6.7) 10^3/uL 14.12 H Absolute Lymphocytes (1.2-3.4) 10^3/uL 1.28 Absolute Monocytes (0.1-0.8) 10^3/uL 1.08 H Absolute Eosinophils (0.0-0.7) 10^3/uL 0.00 Absolute Basophils (0.0-0.2) 10^3/uL 0.03 PT (9.1-11.1) sec 11.0 INR (0.9-1.1) 1.1 APTT (20.6-30.2) sec 23.9 VBG pH (7.31-7.41) 7.48 H VBG pCO2 (41-51) mmHg 36 L VBG pO2 mmHg 26 VBG HCO3 (23-28) mmol/L 27 VBG Total CO2 (24-29) mmol/L 23 L VBG O2 Saturation % 58 VBG Base Excess (-2-3) mmol/L 3 VBG Lactate (<or=2.0) mmol/L 1.7 Sodium (136-145) mmol/L 136 Potassium (3.5-5.1) mmol/L 3.5 Chloride (98-107) mmol/L 98 Carbon Dioxide (21.0-32.0) mmol/L 25.3 Anion Gap (3-11) mmol/L 12.7 H BUN (7-18) mg/dL 8 Creatinine (0.70-1.30) mg/dL 1.0 Est GFR (CKD-EPI 2020) (mL/min/1.73m2) 92.84 Glucose (74-106) mg/dL 161 H Calcium (8.5-10.1) mg/dL 9.1 Total Bilirubin (0.2-1.0) mg/dL 1.2 H AST (15-37) U/L 17 ALT (16-63) U/L 44 Alkaline Phosphatase (46-116) U/L 72 Total Protein (6.4-8.2) g/dL 7.8 Albumin (3.4-5.0) g/dL 4.1 Procalcitonin ng/mL < 0.10 Urine Color (Yellow) Yellow Urine Clarity (Clear) Clear Urine pH (5-8) 6.5 Ur Specific [place] (1.005-1.025) <= 1.005 Urine Protein (Neg-Trace) mg/dL Negative Urine Ketones (Negative) mg/dL Trace H Urine Blood (Negative) Negative Urine Nitrite (Negative) Negative Urine Bilirubin (Negative) Negative Urine Urobilinogen (Up to 0.2) mg/dL 0.2 Ur Leukocyte Esterase (Negative) Negative Urine Glucose (Negative) mg/dL Negative Medical Decision Making This is a pleasant 49-year-old male with a past medical history of diabetes, migraines, intracranial aneurysm requiring coiling and clips in 2019, appendectomy, who presents today for evaluation of headache, abdominal pain, and fever. Patient states that starting 3 days ago he had onset of headache similar to his normal ones however it is gradually worsened over the last 3 days. His blood sugar has been increasing, the headache goes from the right evangelical to the back of his head. Then over the last 24 to 48 hours he has had some vomiting, abdominal pain, and developed a fever. He denies any neck stiffness. He denies any vision changes. He denies any bloody diarrhea. He denies any hematemesis. He states that normally his headaches do not have associated abdominal pain fever. No other complaints at this time. Headache was not thunderclap in onset. Exam demonstrates dry mucous membranes, nonmeningeal neck, no neck stiffness. Actual mild improvement of pain with bending of neck with massage of posterior neck. Generalized abdominal tenderness though. Clear lung sounds. Relatively benign/reassuring neurologic exam. Differential is broad, but includes migraine, potential bleed, no aneurysm, meningitis, in regards to abdominal pathology differential includes diverticulitis, pancreatitis, colitis, or UTI. Will evaluate for these etiologies, get CTA imaging of the head and neck, treat the patient's pain, give migraine cocktail with Benadryl and steroids, Compazine, rehydrate, monitor closely and reassess. Of note he does admit to having a tick bite a month or so ago in his back. There is no rash present there. However we will get a tick and Lyme panel as well. 11:35 PM Laboratory workup has returned, patient has mild white count of 16.57, mild left shift but no bandemia. VBG shows no evidence of acidosis. Electrolytes normal, anion gap slightly elevated 12.7, bili minimally high at 1.2. Procalcitonin less than 0.1. Urinalysis shows no evidence of infection but does show trace ketones. Chest x-ray shows no acute process. CT/CT angio shows no acute intracranial etiology, no bleed, there is a previously treated aneurysm with coil embolization stent, no other acute process. However CT scan of the abdomen shows evidence of mild bronchitis, some nondilated fluid-filled small bowel loops suggestive of enteritis, moderate wall thickening of the ascending transverse and descending colon with minimal adjacent fat stranding concerning for infectious versus inflammatory colitis. Initial reassessment was performed at 8:30 PM, and at that time patient had complete resolution of his headache. He had no neck stiffness. He is feeling much better. He received a migraine cocktail and was fatigued. Abdomen was feeling better after NSAID therapy. No evidence to suggest meningitis. No nuchal rigidity to suggest meningitis or cranial hemorrhage. Patient was rehydrated, he was given IV Cipro and Flagyl. He was then again reassessed 2 additional times both at 1030 and 11:30 PM. He continues to show no focal neurologic deficits, headache and neck pain are completely resolved. No evidence to suggest bleed or meningitis. Additionally his fever is likely secondary to the colitis that he is experiencing. I did have a long discussion with the patient and despite the low likelihood of intracranial etiology we did discuss diagnostic lumbar puncture. There were a long shared decision-making process, weighing the risks and benefits, including the worst case scenario being missing something critical which lead to or lifelong disability, patient at this time in conjunction with discussion with family has decided to decline lumbar puncture. I do think this is very reasonable given his current clinical assessment demonstrating a notable clinical inconsistency to suggest a bleed meningitis or other life-threatening intracranial acute neurologic etiology. Patient will be given prescription for Cipro and Flagyl for home. Recommend continued NSAID therapy. Continued fluids, and close follow-up with PCP. Discussed red flags for which to return. I have extensively reviewed the treatment plan and discharge instructions with the patient and their family. I have addressed all patient concerns at this time. The patient and family was made aware of what symptoms to monitor for that would warrant a return to the emergency department. Discussed the plan with the patient and family, they demonstrate verbal understanding and agreement with our assessment and plan at this time. The documentation in this chart was dictated using [employer] dictation software. Please excuse any dictation errors. FINDINGS: ANTERIOR CIRCULATION: Right internal carotid artery: The right ICA petrous, cavernous, and supraclinoid segments are unremarkable. Right middle cerebral artery: Unremarkable. No occlusion or significant stenosis. No aneurysm. Right anterior cerebral artery: No acute finding. No occlusion or significant stenosis. 6 mm metallic density at the anterior communicating artery distribution consistent with prior coil embolization treatment of an aneurysm, unchanged. Patent vascular stent in place from the left A1 through right A2 segments, unchanged. Left internal carotid artery: The left ICA petrous, cavernous, and supraclinoid segments are unremarkable. Left middle cerebral artery: Unremarkable. No occlusion or significant stenosis. No aneurysm. Left anterior cerebral artery: Patent vascular stent extending from the mid left A1 segment through the right A2 segment across the anterior communicating artery, unchanged. No occlusion or significant stenosis. No new aneurysm. POSTERIOR CIRCULATION: Right vertebral artery: Vascular stent in the distal V4 segment which is patent and grossly unchanged. No occlusion or significant stenosis. No aneurysm. Left vertebral artery: Unremarkable. No occlusion or significant stenosis. No aneurysm. Basilar artery: Unremarkable. No occlusion or significant stenosis. No aneurysm. Right posterior cerebral artery: Moderate-sized right posterior communicating artery present. No occlusion or significant stenosis. No aneurysm. Left posterior cerebral artery: Unremarkable. No occlusion or significant stenosis. No aneurysm. Veins: The dural venous sinuses and major cortical veins enhance appropriately without evidence of thrombosis. HEAD: Brain: The IACs are grossly normal. No extra-axial fluid collections. No evidence of acute intracranial hemorrhage. Cerebral/cerebellar keys-white differentiation is well maintained. No intracranial mass lesions. No midline shift or herniation. No enhancing brain lesions or vascular malformations are identified. Cerebral ventricles: Ventricles normal. Pituitary gland and sella: The sella is grossly normal. Bones: No acute osseous findings. Orbital cavities: No acute intraorbital findings. Paranasal sinuses: Visualized paranasal sinuses are clear. Mastoid air cells: Visualized mastoid air cells are clear. Soft tissues: No acute soft tissue findings. IMPRESSION: 1. No acute vascular abnormalities. No evidence of large vessel occlusion or significant stenosis. 2. No acute intracranial process. No intracranial hemorrhage or mass effect. 3. 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 4. Patent stent in the right vertebral artery distal V4 segment, unchanged. ASSESSMENT: ASPECTS ([place] Stroke Program Early CT Score) is 10. IMPRESSION: 1. No vascular occlusions or significant stenosis. No acute findings. 2. Bilateral moderate-severe ICA tortuosity. This pattern can be seen with underlying chronic connective tissue disorders, correlate clinically. 3. 15 mm low-density nodule in the left thyroid lobe. Recommend nonemergent thyroid ultrasound evaluation unless previously assessed patient is on FINDINGS: Lungs: Normal. Pleural spaces: Normal. Heart/Mediastinum: Normal. Bones/joints: No acute abnormality. IMPRESSION: No acute findings. Thank you for allowing us to participate in the care of your patient. FINDINGS: Tubes, catheters and devices: Sacral stimulator device in place. Lungs: Mild bilateral lower lobe bronchial wall thickening, compatible with reactive airway disease or bronchitis. Liver: Several hepatic hypodensities, likely cysts, although some are too small to definitively characterize. Mild hepatomegaly. Gallbladder and biliary ducts: Normal. Pancreas: Normal. Spleen: Normal. Adrenal glands: Normal. No mass. Kidneys and ureters: Normal. Stomach and bowel: Several loops of nondilated, gas and fluid-filled distal small bowel, which is a nonspecific finding, but can be seen with enteritis. Moderate wall thickening of the ascending transverse, and descending colon, with minimal adjacent fat stranding, likely infectious/inflammatory colitis. Appendix: No evidence of appendicitis. Intraperitoneal space: Unremarkable. No free air. No significant fluid collection. Vasculature: Phleboliths within the pelvis. Lymph nodes: Unremarkable. No enlarged lymph nodes. Urinary bladder: Unremarkable as visualized. Reproductive: Unremarkable as visualized. Bones/joints: L5-S1 degenerative disc disease, disc space narrowing and posterior disc osteophyte complex formation, causing ventral thecal sac indentation and bilateral neural foraminal narrowing. Soft tissues: Small fat containing ventral hernias. IMPRESSION: 1. Mild bilateral lower lobe bronchial wall thickening, compatible with reactive airway disease or bronchitis. 2. Several loops of nondilated, gas and fluid-filled distal small bowel, which is a nonspecific finding, but can be seen with enteritis. 3. Moderate wall thickening of the ascending, transverse, and descending colon, with minimal adjacent fat stranding, likely infectious/inflammatory colitis. Thank you for allowing us to participate in the care of your patient. Dictated and Authenticated by: Cali Sharpe MD 06/10/2025 7:45 PM Eastern Time ([place] & [place]) [facility] All Active Problems (Updated 06/10/25 @ 23:43 by Tee Church DO) Thyroid nodule (Acute) Headache (Acute) Colitis (Acute) Acute bronchitis (Acute) Abscess of groin, right (Acute) Breast pain, right (Acute) Class 2 obesity without serious comorbidity with body mass index (BMI) of 37.0 to 37.9 in adult (Acute) Smoker unmotivated to quit (Acute) History of prediabetes (Acute) Gynecomastia, male (Acute) Marijuana smoker, continuous (Acute) Ankle sprain (Acute) Cellulitis of leg, right (Acute) Abrasion of leg, right, infected (Acute) Medical History Migraine Anxiety Intracranial aneurysm Obesity (BMI 35.0-39.9 without comorbidity) Hypertension Surgical History Tympanic membrane rupture with repair History of thyroid surgery H/O right wrist surgery History of appendectomy Brain aneurysm Coiling and clipping x 2 Social History Smoking/Tobacco Use Status: Current every day Tobacco Type: cigarettes Smoking risk assessment performed?: Yes Alcohol Intake: current Alcohol Intake frequency: a few times a month Alcohol type: beer and hard liquor Drug use: Current Sobriety Substance use type: does not use Do you feel safe at home: Yes Do you feel safe in your relationship?: Yes
[2025-06-10] MEDS: metroNIDAZOLE 500 MG/100 ML BAG 100 MG IVPB (22:42)
[2025-06-11] VITALS: BP 147/91; PULSE 94; RESP 20; TEMP 37.9; TEMP 39.4; O2SAT 94
[2025-06-13 08:49] LABS: Lyme Ab w Rflx to Lyme Confirm Negative (Negative)
[2025-06-14 22:34] LABS: B. miyamotoi PCR Negative (Negative); Babesia divergens/MO-1 Negative (Negative); Ehrlichia muris eauclairensis Negative (Negative)
== END 2025-06-11 00:01 | disposition home or self-care (01) ==
PROVIDERS: Emergency Provider Student in an Organized Health Care Education/Training Program; PCP Nurse Practitioner Family
DX: K52.89 Other specified noninfective gastroenteritis and colitis (principal); R51.9 Headache, unspecified; E04.1 Nontoxic single thyroid nodule; E11.9 Type 2 diabetes mellitus without complications; I10 Essential (primary) hypertension; F17.210 Nicotine dependence, cigarettes, uncomplicated; Z79.84 Long term (current) use of oral hypoglycemic drugs
CPT/HCPCS: 36415; 70496; 70498; 80053; 82805; 82962; 84145; 87040; 87637; 87798; 96365; 96366; 96367; 96375; 99285; 71045; 74177; 81003; 83605; 85025; 85610; 85730; 86618; 87086; J0131; J0744; J0780; J1200; J1836; J2270; J2919; J3490

== ENCOUNTER 2025-06-28 16:15 | Emergency (ER) | payer OTHER, SELFPAY ==
[2025-06-28] VITALS (24 sets, daily range): BP systolic 128–151; BP diastolic 85–103; PULSE 71–107; RESP 15–24; TEMP 36.6; O2SAT 75–100
--- NOTE | 2025-06-28 16:45 | RT.EKG_ITS ---
APPROVED REPORT Exam: Resting ECG Reason for Exam: vomiting Patient Location: E HR:94 bpm ECG Measurements Heart Rate 94 AXIS WA 141 P 9 QRSd 76 QRS 59 QT 342 T -72 QTc 429 Conclusion Sinus rhythm...normal P axis, V-rate 60- 99 Probable LVH with secondary repol abnrm...multiple LVH criteria Sinus rhythm, LVH with repolarization abnormality. When compared to prior 12/07/22 no significant changes. WD
--- NOTE | 2025-06-28 16:52 | W.ED.GENAD ---
Discharge Plan Disposition Patient Disposition: Home Condition: Improving Discharge Details Clinical Impression: Colitis, Dehydration, Acute renal insufficiency Primary Care Provider: Huong Gordon ED Provider: Cora Yepez Home Meds and New Rx's Prescriptions: New ondansetron 4 mg tablet,disintegrating 4 mg PO Q6H PRNQty: 20 0RF No Action hydroxyzine HCl 25 mg tablet 25 mg PO QHS PRN aspirin 81 mg Tablet,Chewable 81 mg PO DAILY acetaminophen [Acetaminophen Extra Strength] 500 mg Tablet 1,000 mg PO PRN PRN metformin 500 mg tablet 1,000 mg PO BID Patient Comments: TAKE ONE TABLET BY MOUTH TWICE A DAY cyclobenzaprine 10 mg tablet 10 mg PO TID PRN (Reason: lumbar spasm) Qty: 30 0RF lidocaine [Lidoderm] 5 % adhesive patch,medicated 1 patch topical DAILY Qty: 15 0RF Rx Instructions: leave on most painful area for up to 12 hrs Discharge Instructions Instructions: Dehydration, Adult (DC), Colitis (DC), Dehydration, Adult ED Additional Instructions: Continue to hydrate orally at home. Use Zofran as needed. I recommend soft diet. I feel that you would benefit from GI evaluation given your second episode of colitis. Discharge Data Discharge Physician: Cora Yepez [facility] General Date/Time Provider Initiated Documentation: 06/28/25 16:38. HPI Narrative: 49-year-old male with recent diagnosis of colitis presents for evaluation of ongoing diarrhea and dehydration. Patient states that over the last several days he has not been able to keep anything down. He has had vomiting as well as diarrhea. He has cramping throughout his entire body. He has increased abdominal pain. He did have 1 episode of bright red blood per rectum that was about a week ago. He has not had any rectal bleeding since that time. This is his first diagnosis of colitis. He has never had a colonoscopy. He was started on antibiotics and has 2 pills left. He states he has been taking them as prescribed. Denies any fevers or chills. He Related Data Home Medications ?Medication ?Instructions ?Recorded ?Confirmed aspirin 81 mg chewable tablet 81 mg PO DAILY 01/30/20 06/28/25 hydroxyzine HCl 25 mg tablet 25 mg PO QHS PRN 06/21/21 06/28/25 acetaminophen 500 mg tablet 1,000 mg PO PRN PRN 12/23/21 06/28/25 (Acetaminophen Extra Strength) cyclobenzaprine 10 mg tablet 10 mg PO TID PRN lumbar spasm #30 04/30/24 06/28/25 tabs lidocaine 5 % topical patch 1 patch topical DAILY lumbar back 04/30/24 06/28/25 (Lidoderm) pain #15 ea metformin 500 mg tablet 1,000 mg PO BID 04/30/24 06/28/25 ondansetron 4 mg disintegrating 4 mg PO Q6H PRN #20 tabs 06/28/25 tablet Previous Rx's ?Medication ?Instructions ?Recorded cyclobenzaprine 10 mg tablet 10 mg PO TID PRN lumbar spasm #30 04/30/24 tabs lidocaine 5 % topical patch 1 patch topical DAILY lumbar back 04/30/24 (Lidoderm) pain #15 ea ondansetron 4 mg disintegrating 4 mg PO Q6H PRN #20 tabs 06/28/25 tablet Allergies Allergy/AdvReac Type Severity Reaction Status Date / Time lisinopril Allergy Severe rash Verified 06/28/25 16:24 ketorolac (From Toradol) Allergy Intermediate he Verified 06/28/25 16:24 stopped breathing tramadol Allergy Unknown Dizziness/L Unverified 06/28/25 16:24 ighthead General Stated Complaint: Abd Prob MOISE: 3 Review of Systems Narrative: Remainder of review of systems otherwise negative except for as noted in the HPI x 10. Exam Narrative Exam Narrative: General: non-toxic, no respiratory distress, uncomfortable HEENT: normocephalic, atraumatic, lids and lashes normal, PERRL, EOMI, anicteric sclera, no conjunctival injection, moist oral mucosa Card: regular rate and rhythm, S1S2, no murmurs, rubs, or gallops Lungs: good air entry, clear to auscultation bilaterally. no wheezes, rales, rhonchi, or retractions Abd: soft, diffusely tender , non-distended, normal bowel sounds, no rebound or guarding, no peritoneal signs, no CVAT Musculoskeletal: full range of motion of arms and legs, no tenderness to palpation. no clubbing, cyanosis, or edema Neurologic: appropriate for age, strength normal Psych: alert and oriented Skin: no petechiae, no lesions, warm and dry Course Vital Signs Vital signs: Vital Signs Temperature 36.6 C 06/28/25 16:19 Pulse 107 H 06/28/25 16:19 Respiratory Rate 24 06/28/25 16:19 Blood Pressure 139/85 06/28/25 16:19 Temperature 36.6 C 06/28/25 16:45 Temperature Source Oral 06/28/25 16:45 Pulse 107 H 06/28/25 16:45 Respiratory Rate 24 06/28/25 16:45 Blood Pressure 139/85 06/28/25 16:45 Oxygen Delivery Method Room Air 06/28/25 16:45 Oxygen Flow Rate 0 06/28/25 16:45 Pain Level 7 06/28/25 16:45 Medical Decision Making 49-year-old male with recent diagnosis of colitis presents for evaluation of ongoing diarrhea. Now with vomiting decreased oral intake and diffuse muscle cramping. On examination he does have significant abdominal discomfort. EKG shows sinus rhythm. Laboratory studies show elevated white count however it is trending down from prior. No significant electrolyte abnormality. Given patient's abdominal discomfort and persistent elevatio of white count CT of abdomen pelvis was obtained. This shows improvement of his colitis. Patient received 2 L of IV fluid with some improvement however was unable to give a urine sample. Bladder scan was obtained and showed only 68 mL of urine in the bladder. Third liter of IV fluids was ordered. Patient then had urge to urinate. He is feeling significant improvement. He is not having abdominal discomfort and his muscle cramping has stopped. He was able to tolerate p.o. Repeat laboratory studies show some improvement. Patient does have acute renal insufficiency today likely secondary to this dehydration. He will continue to hydrate orally at home. I have encouraged soft diet. He will be given a prescription for Zofran. I have also discussed the importance of GI follow-up. I do feel that he will benefit from endoscopy and colonoscopy. He understands if he is unable to tolerate p.o., he has fever, worse abdominal pain that he will need to return for reevaluation. PFSH All Active Problems (Updated 06/28/25 @ 21:12 by Cora Yepez MD) Acute renal insufficiency (Acute) Dehydration (Acute) Colitis (Acute) Thyroid nodule (Acute) Headache (Acute) Colitis (Acute) Acute bronchitis (Acute) Abscess of groin, right (Acute) Breast pain, right (Acute) Class 2 obesity without serious comorbidity with body mass index (BMI) of 37.0 to 37.9 in adult (Acute) Smoker unmotivated to quit (Acute) History of prediabetes (Acute) Gynecomastia, male (Acute) Marijuana smoker, continuous (Acute) Ankle sprain (Acute) Cellulitis of leg, right (Acute) Abrasion of leg, right, infected (Acute) Medical History Migraine Anxiety Intracranial aneurysm Obesity (BMI 35.0-39.9 without comorbidity) Hypertension Surgical History Tympanic membrane rupture with repair History of thyroid surgery H/O right wrist surgery History of appendectomy Brain aneurysm Coiling and clipping x 2 Social History Smoking/Tobacco Use Status: Current every day Tobacco Type: cigarettes Smoking risk assessment performed?: Yes Alcohol Intake: former Drug use: Current Sobriety Substance use type: does not use Do you feel safe at home: Yes Do you feel safe in your relationship?: Yes
[2025-06-28 17:13] LABS: Abs Immature Grans 0.06 10^3/uL (0.0-0.06); HCT 49.0 % (40.0-50.0); HGB 17.3 g/dL (13.5-17.5); Immature Grans % 0.4 %; MCH 31.6 pg (27.0-33.0); MCHC 35.3 % (32.0-36.0); MCV 90 fL (80-95); MPV 9.2 fL (8.0-11.0); Platelet Count 332 10^3/uL (130-400); RBC 5.47 10^6/uL (4.36-5.78); RDW 11.9 % (11.8-14.1); RDW-SD 39.4 fL; WBC 15.18 10^3/uL (4.4-10.8)
[2025-06-28 17:15] LABS: ESR 31 mm/hr (0-15)
[2025-06-28] MEDS: Ondansetron 4 MG/2 ML VIAL IVP (17:20)
[2025-06-28] MEDS: Lactated Ringers 1,000 ML 1000 ML IV ×3 (17:20→20:13)
[2025-06-28] MEDS: MORPHine 10 MG/ML VIAL 4 MG IVP (17:20)
[2025-06-28 17:31] LABS: ALT 58 U/L (16-63); AST 33 U/L (15-37); Albumin 4.5 g/dL (3.4-5.0); Alkaline Phosphatase 80 U/L (46-116); Anion Gap 16.8 mmol/L (3-11); BUN 24 mg/dL (7-18); Bilirubin, Total 1.2 mg/dL (0.2-1.0); C-Reactive Protein < 0.50 mg/dL (<or=0.5); CO2 20.2 mmol/L (21.0-32.0); Calcium 10.0 mg/dL (8.5-10.1); Chloride 97 mmol/L (98-107); Estimated GFR 42.98 (mL/min/1.73m2); Glucose 139 mg/dL (74-106); Lipase 41 U/L (<78); Magnesium 1.7 mg/dL (1.8-2.4); Potassium 3.7 mmol/L (3.5-5.1); Sodium 134 mmol/L (136-145); Total Protein 8.8 g/dL (6.4-8.2); Troponin I 26 ng/L (<or=76)
[2025-06-28] MEDS: Normal Saline - Diluent 50 ML VIAL IJ (18:03)
[2025-06-28] MEDS: Omnipaque 350 MG/ML 100 ML BTL IJ (18:13)
--- NOTE | 2025-06-28 18:15 | DI.CT_ITS ---
Exam(s) CT ABDOMEN PELVIS W EXAM: CT ABDOMEN PELVIS W CLINICAL HISTORY: recednt colitis, increaed pain. TECHNIQUE: Imaging Protocol: Axial computed tomography images with coronal and sagittal reformatted images were created and reviewed CONTRAST MATERIAL: Intravenous: Omnipaque 350 Contrast volume:100 ml Oral: no COMPARISON: CT CT ABDOMEN PELVIS W from 06/10/2025 FINDINGS: ABDOMEN and PELVIS: Lung Bases: No acute findings. Liver: Mildly enlarged. Mild hepatic steatosis. Stable cysts. No suspicious mass. Gallbladder and biliary tract: Gallbladder appears distended. No radiodense calculus. No wall thickening or pericholecystic fluid. No biliary dilation. Pancreas: Normal density. No abnormal calcifications or inflammatory process. No evidence of mass. Spleen: Normal. Kidneys: Normal size, contour and axis. No radiodense stones. No obstructive uropathy. No suspicious masses seen. Adrenal glands: No masses seen. Vasculature: Abdominal aorta non-dilated. Soft tissues: Small fat containing hernias at and above the level of the umbilicus. Spinal stimulator device noted posteriorly at the upper sacrum. Bladder: Nearly empty. Not well evaluated.. No calculi.No focal mass. Bowel: No obstruction. The previously noted wall thickening has resolved. The distal small bowel and right side of the colon appears somewhat fluid-filled. The appendix is not seen. Peritoneal cavity: No ascites. No focal collection. No mesenteric inflammatory response. No free air. Bones: Degenerative change greatest at L5-S1. Degenerative changes of both hips. Reproductive organs: Unremarkable. Lymph nodes: No pathologically enlarged lymph nodes. IMPRESSION:: Improvement of previously noted colonic wall thickening. The gallbladder now appears distended however there is no wall thickening, pericholecystic fluid, biliary dilatation or evidence of stones. RADIATION DOSE DELIVERED: Total DLP DATA REPOSITORY: All CT scans at this facility are submitted to the National Radiology Data Registry (NRDR) Dose Index Registry (DIR) with the [employer] (ACR). RADIATION OPTIMIZATION: All CT scans at this facility use at least one of these dose optimization techniques: automated exposure control; mA and/or kV adjustment per patient size (includes targeted exams where dose is matched to clinical indication); or iterative reconstruction.
[2025-06-28] MEDS: HYDROmorphone 2 MG/ML SYR 1 MG IVP (18:32)
[2025-06-28 19:05] LABS: Troponin I 28 ng/L (<or=76)
[2025-06-28 20:14] LABS: Glucose Negative (Negative)
[2025-06-28 20:19] LABS: Anion Gap 12.1 mmol/L (3-11); BUN 24 mg/dL (7-18); CO2 21.9 mmol/L (21.0-32.0); Calcium 8.9 mg/dL (8.5-10.1); Chloride 100 mmol/L (98-107); Estimated GFR 45.86 (mL/min/1.73m2); Glucose 131 mg/dL (74-106); Potassium 3.9 mmol/L (3.5-5.1); Sodium 134 mmol/L (136-145)
[2025-06-28 20:28] LABS: RBC Negative HPF (0-2); WBC 0-2 HPF (0-5)
[2025-06-28 20:41] LABS: Troponin I 27 ng/L (<or=76)
== END 2025-06-28 21:28 | disposition home or self-care (01) ==
PROVIDERS: Emergency Provider Emergency Medicine Emergency Medical Services; PCP Nurse Practitioner Family
DX: K52.9 Noninfective gastroenteritis and colitis, unspecified (principal); N28.9 Disorder of kidney and ureter, unspecified
CPT/HCPCS: 99285; 99284; 36415; 96374; 96375; 80048; 80053; 83690; 85652; 87040; 93005; 96361; 74177; 81003; 81015; 83605; 83735; 84484; 85025; 86140; 93010; J1171; J2270; J2405; J3490

== ENCOUNTER 2025-06-29 21:06 | Outpatient (REF) | payer OTHER, SELFPAY ==
[2025-06-29 15:34] LABS: Anion Gap 10.5 mmol/L (3-11); BUN 17 mg/dL (7-18); CO2 25.5 mmol/L (21.0-32.0); Calcium 8.8 mg/dL (8.5-10.1); Chloride 102 mmol/L (98-107); Estimated GFR 105.35 (mL/min/1.73m2); Glucose 219 mg/dL (74-106); Potassium 4.2 mmol/L (3.5-5.1); Sodium 138 mmol/L (136-145)
[2025-06-29 16:09] LABS: Hemoglobin A1C 6.8 % (<5.7)
== END 2025-06-29 21:07 | disposition home or self-care (01) ==
LOC: NCHCN 21:06
PROVIDERS: PCP Nurse Practitioner Family; Visit Provider Family Medicine
DX: K52.9 Noninfective gastroenteritis and colitis, unspecified (principal); E11.9 Type 2 diabetes mellitus without complications
CPT/HCPCS: 80048; 83036

== ENCOUNTER 2025-06-30 08:48 | Outpatient (REF) | payer OTHER, SELFPAY | END 2025-06-30 08:49 | disposition home or self-care (01) | LOC: NCHCN 08:48 | PROVIDERS: PCP Nurse Practitioner Family; Visit Provider Family Medicine | DX: K52.9 Noninfective gastroenteritis and colitis, unspecified (principal) | CPT/HCPCS: 87015; 87269; 87272; 83630; 83993 ==

== ENCOUNTER 2025-09-23 12:06 | Outpatient (REF) | payer OTHER, SELFPAY ==
[2025-09-23 15:41] LABS: Hemoglobin A1C 6.7 % (<5.7)
[2025-09-23 15:46] LABS: Calculated LDL 137 mg/dL (<100); Cholesterol 200 mg/dL (<200); HDL Cholesterol 40 mg/dL (>or=40); Triglyceride 117 mg/dL (<150)
[2025-09-23 16:42] LABS: COMMENT (LAB VIEW ONLY) 116.38 mg/dL; Microalb ug/mg Crea 41.5 ug/mg Cr
[2025-09-24 09:25] LABS: HIV-1/2 Ag & Ab Screen Negative (Negative)
[2025-09-26 11:49] LABS: Hepatitis C Ab w Rflx HCV PCR Negative (Negative)
== END 2025-09-23 12:07 | disposition home or self-care (01) ==
LOC: NCHCN 12:06
PROVIDERS: PCP Nurse Practitioner Family; Visit Provider Family Medicine
DX: Z11.59 Encounter for screening for other viral diseases (principal); E11.9 Type 2 diabetes mellitus without complications; Z11.4 Encounter for screening for human immunodeficiency virus [HIV]; Z13.220 Encounter for screening for lipoid disorders
CPT/HCPCS: 80061; 86803; 87389; 82043; 82570; 83036

== ENCOUNTER 2025-11-22 07:09 | Inpatient (IN) | payer OTHER, SELFPAY ==
[2025-11-22] VITALS (145 sets, daily range): BP systolic 81–208; BP diastolic 30–110; PULSE 72–113; RESP 14–46; TEMP 36.2–39.3; O2SAT 83–100
--- NOTE | 2025-11-22 07:00 | RT.EKG_ITS ---
APPROVED REPORT Exam: Resting ECG Reason for Exam: SOB Patient Location: E HR:94 bpm ECG Measurements Heart Rate 94 AXIS ME 144 P 50 QRSd 84 QRS 69 QT 329 T 17 QTc 413 Conclusion Sinus rhythm...normal P axis, V-rate 60- 99 No [place]
--- NOTE | 2025-11-22 07:11 | W.ED.GENAD ---
Discharge Plan Disposition Patient Disposition: Admit to [facility] Discharge Details Clinical Impression: Acute respiratory failure, Acute lactic acidosis, Leukocytosis, Myocardial injury Admit Date/Time: 11/22/25 09:43 Admit Provider: Bang Henley Attending Provider: Bang Henley Primary Care Provider: Huong Gordon ED Provider: Bang Luke General Date/Time Provider Initiated Documentation: 11/22/25 07:11. HPI Narrative: MDM This is an unwell febrile sick obese 50-year-old with respiratory failure for which patient received urgent intubation in the emergency department following verbal consent. Patient was temporarily trialed on BiPAP and was able to pull good tidal volumes when he was awake but kept having decreased respiratory drive when he fell asleep. His portable chest x-ray showed no acute pulm cardiopulmonary process. His bedside ultrasound showed no significant B-lines. I discussed with patient that if he was not able to pull big breaths on BiPAP that we would need to intubate him. He reported that he was tired. Please see procedure note for intubation accomplished successfully on single first-pass. Before intubation patient's venous gas lactic hypercarbia and acidemia. His lactate was mildly elevated at 2.3 mmol/L. He received 1 L of IV fluid. Blood cultures were drawn. He was covered empirically with cefepime, vancomycin and doxycycline given respiratory component. His basic metabolic panel showed normal renal function no MARY. No acute electrolyte abnormality. CBC notable for leukocytosis but no anemia. No thrombocytopenia. He received respiratory viral swab. I ordered a temp sensing Forbes catheter. I treated him with 1 g of acetaminophen. He also received nebulized ipratropium-albuterol given his prolonged expiratory phase and 125 mg methylprednisolone. 9:30 AM Urinalysis showing small blood likely from Forbes insertion. Nitrite leuk esterase negative. I signed patient out to Dr. Henley at bedside who graciously agreed to accept the patient. In the setting of his negative chest x-ray will obtain more sensitive chest CT without contrast to assess for pneumonia. In setting of negative D-dimer will defer angiogram. 9:45 AM Patient had a decrease in his blood pressure with a MAP of 48. This occurred after Precedex had been initiated. Precedex was stopped. Propofol was down titrated to 55 mcg/kg/min. Norepinephrine which had been hanging was initiated. 10:20 AM Patient's tachycardia resolved as that is hypotension. Heart rate currently 75 blood pressure 116/51. Portable chest x-ray confirms NG tube and ET tube. Patient had a positive delta troponin from 38-52. In the setting of his respiratory failure this is most likely secondary to demand. Nonetheless we will treat with 2024 mg rectal aspirin. Patient reportedly had adverse reaction to ketorolac from [facility] in 2019. Will repeat ECG. Chart review [facility] from March 2019 noted that the patient had had prior recorded allergy to aspirin requiring medical management in the emergency department. Records were not available. Neurosurgery noted that the patient would require aspirin following his aneurysm coiling. He was admitted to the ICU for supervised dosing of aspirin with the critical care team. He tolerated aspirin administration required no acute intervention. In the setting of his positive delta troponin ECG will be repleted. If there are not ischemic changes we will defer heparinization and cardiology consultation. 10:45 AM Repeat ECG showing persistent narrow complex normal sinus rhythm. Rate now 75. Normal axis. Intervals within normal limits. No acute ST segment changes. No injury pattern. Will defer heparinization. Diagnostic interpretations performed by me: Per my independent interpretation chest x-ray shows: No acute cardiopulmonary process. Per my independent interpretation EKG shows: Narrow complex normal sinus rhythm at a rate of 94. Normal axis. Intervals within normal limits. No acute injury pattern. Appears similar to prior dated earlier this year. HPI The patient presents for evaluation of chest pain. He began experiencing symptoms abruptly yesterday, despite feeling well in the morning. He reports a cough, fever, and nausea. He is not aware of any sick contacts. He also reports central chest pain, which he rates as 7 out of 10 in severity. He is uncertain about any unintentional weight gain. He has no prior history of asthma or cardiac issues. This is his first encounter with such symptoms. Exam General: Tired-appearing in moderate distress speaking in 3-4 word sentences. Head: Normocephalic, atraumatic. Eye: Extraocular eye movements intact. No conjunctival injection. No scleral icterus. Ear, nose, mouth, throat: Grossly normal inspection. Normal voice, handling secretions normally. Neck: Trachea midline. Cardiovascular: Well-perfused distal extremities. Respiratory: Labored respirations with end expiratory wheezes. Gastrointestinal: Nondistended abdomen. Soft. Nontender. Musculoskeletal: No significant lower extremity edema. Moving all 4 extremities spontaneously. Skin: Normal for age and race, grossly normal temperature and turgor. No acute rash. Neurologic: Alert and appropriate, no apparent acute deficits. Related Data Home Medications ?Medication ?Instructions ?Recorded ?Confirmed aspirin 81 mg chewable tablet 81 mg PO DAILY 01/30/20 11/22/25 hydroxyzine HCl 25 mg tablet 25 mg PO QHS PRN 06/21/21 11/22/25 acetaminophen 500 mg tablet 1,000 mg PO PRN PRN 12/23/21 11/22/25 (Acetaminophen Extra Strength) metformin 500 mg tablet 1,000 mg PO BID 04/30/24 11/22/25 Allergies Allergy/AdvReac Type Severity Reaction Status Date / Time lisinopril Allergy Severe rash Verified 11/22/25 07:18 ketorolac (From Toradol) Allergy Intermediate he Verified 11/22/25 07:18 stopped breathing tramadol Allergy Unknown Dizziness/L Unverified 11/22/25 07:18 ighthead General MOISE: 3 Procedure Airway Management Date of Procedure: 11/22/25 Time of Procedure: 08:51 Patient Consented: Verbally Indication: Respiratory failure Provider that performed the procedure: Bang Luke Mallampati Class: Unable to Assess Induction setup: Apneic Oxygenation, BiPAP/CPAP, Ear to Sternal Notch and Rapid Sequence Induction Ultrasound: Not used Airway Type: Intubation Grade: Paralytic(indicate dose given): Rocuronium and Other (Etomidate) Post Induction Medication Management(indicate dose given): Managed by Requesting Provider, Propofol IV and Other (Hydromorphone) Gastric Tube: Placed by Other Person Procedure Complications: None Procedure Outcome: Successful Procedure Description Note: Patient tolerated procedure well. Tube confirmed with end-tidal fogging tube and bilateral breath sounds. Critical Care Time Critical Care Time Critical Care Time: Yes Total Critical Care Time: 45 Attestation: Decrease drive from respiratory failure requiring emergent airway management. Due to CHF good PFSH All Active Problems (Updated 11/22/25 @ 13:04 by Bang Henley) Multifocal pneumonia (Acute) Hypomagnesemia (Acute) Myocardial injury (Acute) Severe sepsis (Acute) Leukocytosis (Acute) Acute lactic acidosis (Acute) Acute respiratory failure (Acute) Acute bronchitis (Acute) Abscess of groin, right (Acute) Breast pain, right (Acute) Class 2 obesity without serious comorbidity with body mass index (BMI) of 37.0 to 37.9 in adult (Acute) Smoker unmotivated to quit (Acute) History of prediabetes (Acute) Gynecomastia, male (Acute) Marijuana smoker, continuous (Acute) Ankle sprain (Acute) Cellulitis of leg, right (Acute) Abrasion of leg, right, infected (Acute) Medical History (Updated 11/22/25 @ 13:04 by Bang Henley) H/O allergic reaction to aspirin/NSAIDs, had observed trial at [facility] Diabetes mellitus type 2, noninsulin dependent Migraine Anxiety Intracranial aneurysm Obesity (BMI 35.0-39.9 without comorbidity) Hypertension Surgical History Tympanic membrane rupture with repair History of thyroid surgery H/O right wrist surgery History of appendectomy Brain aneurysm Coiling and clipping x 2 Social History Smoking/Tobacco Use Status: Current every day Tobacco Type: cigarettes Smoking risk assessment performed?: Yes Alcohol Intake: former Drug use: Current Sobriety Substance use type: does not use Housing: house Do you feel safe at home: Yes Do you feel safe in your relationship?: Yes POCUS Exam (ED) Limited Cardiac Exam DATE OF EXAM: 11/22/25 TIME OF EXAM: 08:48 PROVIDER THAT PERFORMED THE STUDY: Bang Luke IS THIS A REPEAT EXAM DURING THIS ENCOUNTER: no REASON FOR EXAM: Dyspnea VISUALIZED STRUCTURES: Four Chambers, Left ventricle and LVOT VIEW OBTAINED: Apical 4-Chamber, Parasternal long-axis and Subxiphoid PERTINENT FINDINGS/IMPRESSION: No pericardial effusion and No RV dilation DIFFERENTIAL DIAGNOSES: Aortic outflow track less than 4 cm, good squeeze, RV less than LV, no significant pericardial effusion. No significant B-lines bilaterally. Exam complete
--- NOTE | 2025-11-22 07:15 | DI.RAD_ITS ---
Exam(s) XR PORTABLE CHEST AP EXAM: XR PORTABLE CHEST AP CLINICAL HISTORY: Chest pain. TECHNIQUE: 2D digital imaging was performed. COMPARISON: Prior chest x-ray 06/10/2025 FINDINGS: Single AP portable view. Heart size is upper normal. The mediastinum is not widened. Lungs are clear. No infiltrates nor obvious pleural effusions. IMPRESSION: No acute pulmonary findings on this single AP portable view of the chest.No significant change compared to 06/10/2025 DATA REPOSITORY: RADIATION DOSE DELIVERED:
[2025-11-22] MEDS: Acetaminophen 500 MG TAB 1000 MG PO (07:23)
[2025-11-22] MEDS: Albuterol/Ipratropium 3 ML UPD VIAL UPD ×4 (07:35→22:30)
[2025-11-22 07:37] LABS: BE (Venous) 3 mmol/L (-2-3); HCO3 (Venous) 27 mmol/L (23-28); O2 Sat (Venous) 92 %; TCO2 (Venous) 23 mmol/L (24-29); pCO2 (Venous) 38 mmHg (41-51); pO2 (Venous) 56 mmHg
[2025-11-22 07:40] LABS: Abs Immature Grans 0.05 10^3/uL (0.0-0.06); HCT 42.6 % (40.0-50.0); HGB 14.8 g/dL (13.5-17.5); Immature Grans % 0.3 %; MCH 31.4 pg (27.0-33.0); MCHC 34.7 % (32.0-36.0); MCV 90 fL (80-95); MPV 9.1 fL (8.0-11.0); Platelet Count 251 10^3/uL (130-400); RBC 4.72 10^6/uL (4.36-5.78); RDW 11.9 % (11.8-14.1); RDW-SD 39.0 fL; WBC 15.77 10^3/uL (4.4-10.8)
[2025-11-22] MEDS: Normal Saline 1,000 ML 1000 ML IV ×2 (07:45→10:07)
[2025-11-22 07:57] LABS: Troponin I 38 ng/L (<54)
[2025-11-22 07:58] LABS: Anion Gap 8.7 mmol/L (3-11); BUN 10 mg/dL (9-23); CO2 26.3 mmol/L (20.0-31.0); Calcium 9.0 mg/dL (8.3-10.6); Chloride 102 mmol/L (98-107); Glucose 184 mg/dL (74-106); Potassium 3.8 mmol/L (3.5-5.1); Sodium 137 mmol/L (136-145)
[2025-11-22] MEDS: CEFEPIME 2 GM in Normal Saline 100 ML IVPB ×2 (08:00→16:16)
[2025-11-22] MEDS: Albuterol/Ipratropium 3 ML UPD VIAL (08:00)
[2025-11-22 08:06] LABS: D-Dimer 342 ng/mlFEU (<500)
[2025-11-22] MEDS: Etomidate 20 MG/10 ML VIAL IVP (08:10)
[2025-11-22] MEDS: Rocuronium 50 MG/5 ML SYR 110 MG IVP (08:11)
--- NOTE | 2025-11-22 08:15 | DI.RAD_ITS ---
Exam(s) XR PORTABLE CHEST AP POST LINE EXAM: XR PORTABLE CHEST AP POST LINE CLINICAL HISTORY: Confirmed tube. TECHNIQUE: 2D digital imaging was performed. COMPARISON: CR,XR XR PORTABLE CHEST AP from 11/22/2025 FINDINGS: Single AP portable view. The distal tip of the endotracheal tube is in satisfactory position and located 4.3 cm above the julianna. There is an NG tube but its distal tube position is difficult to assess on this image because of other overlying tubing. Heart size is normal. Mediastinum unremarkable. There appears to be some infiltrate in the left lower lobe. Also in the left suprahilar region/left upper lobe. No large pleural effusions evident. IMPRESSION: ET tube in satisfactory position. NG tube distal tip position difficult to evaluate. Left lung infiltrates. DATA REPOSITORY: RADIATION DOSE DELIVERED:
[2025-11-22] MEDS: HYDROmorphone 2 MG/ML SYR 1 MG IVP ×5 (08:20→16:15)
--- NOTE | 2025-11-22 08:22 | DI.VRAD_ITS ---
PROCEDURE INFORMATION: Exam: XR Chest Exam date and time: 11/22/2025 7:34 AM Age: 50 years old Clinical indication: Other: Unspecified; Chest pain TECHNIQUE: Imaging protocol: Radiologic exam of the chest. Views: 1 view. COMPARISON: CR XR CHEST 1V IN DI DEPT 06/10/2025 6:43 PM FINDINGS: Lungs: No focal consolidation seen. Densities projecting adjacent to the first ribs bilaterally, likely stable. Pleural spaces: No large pleural effusion seen. Heart/Mediastinum: No cardiomegaly. Bones/joints: No acute abnormality. IMPRESSION: No acute findings to explain reported symptoms. Dictated and Authenticated by: Kait Tolbert MD. Orderin Marly Cuenca MD
[2025-11-22] MEDS: ACETAMINOPHEN 1,000 MG/100 ML BAG 400 MG IVPB (08:45)
--- NOTE | 2025-11-22 09:00 | DI.CT_ITS ---
Exam(s) CT CHEST WO EXAM: CT CHEST WO CLINICAL HISTORY: Respiratory failure negative chest x-ray. TECHNIQUE: Multi planar reconstructions were performed. CONTRAST MATERIAL: None COMPARISON: CT CT CHEST PE CTA from 12/23/2021 FINDINGS: CHEST: The endotracheal tube is in satisfactory position above the julianna. The NG tube is in the stomach. LUNGS: There is some patchy infiltrate in the lower lobes, more prominent in the left lower lobe. Also in both upper lobes. Minimal peripheral increased markings in the right middle lobe. There are no pleural effusions MEDIASTINUM: No obvious hilar adenopathy. No obvious mediastinal adenopathy. And the right thyroid lobe is either aplastic or surgically absent. There is a taller than wider nodule in the left thyroid lobe measuring approximately 1.6 AP by 1.0 wide. CARDIAC: Heart size upper normal. There is no pericardial effusion.Caliber of the thoracic aorta is within normal limits. VISUALIZED UPPER ABDOMEN: Partially visualized adrenal glands appear unremarkable. Spleen size normal. Distal tip of the NG tube is along the greater curvature of the stomach, in satisfactory position. OSSEOUS: No significant osseous lesions.No acute fractures evident. Slight loss of height at superior endplate level of T3 noted. Approximately 10 percent height loss.. IMPRESSION: 1. Patchy bilateral infiltrates, most prominent in the left lower lobe. No pleural effusions nor obvious intrathoracic adenopathy. 2. Both the endotracheal and NG tubes are in satisfactory position. 3. Report called by myself to ICU physician 11/22/2025 at 11:40 a.m. RADIATION DOSE DELIVERED: 545.18mGy.cm Total DLP DATA REPOSITORY: All CT scans at this facility are submitted to the National Radiology Data Registry (NRDR) Dose Index Registry (DIR) with the [employer] (ACR). RADIATION OPTIMIZATION: All CT scans at this facility use at least one of these dose optimization techniques: automated exposure control; mA and/or kV adjustment per patient size (includes targeted exams where dose is matched to clinical indication); or iterative reconstruction.
[2025-11-22] MEDS: methylPREDNISolone SUCC 125 MG VIAL IVP (09:03)
[2025-11-22] MEDS: DOXYCYCLINE 100 MG in Normal Saline 100 ML IVPB ×2 (09:03→19:34)
[2025-11-22 09:09] LABS: Glucose 100 mg/dL (Negative)
[2025-11-22] MEDS: PROPOFOL 1,000 MG/100 ML BTL 3.266 MG IVPB (09:10)
[2025-11-22 09:16] LABS: C & S Indicated? No; WBC Negative HPF (0-5)
[2025-11-22] MEDS: Norepinephrine in D5W 8 MG/250 ML BAG 9.4 MG IV (09:30)
[2025-11-22] MEDS: dexmedeTOMidine IN 0.9 % NACL 400 MCG/100 ML BTL 11.7 MCG IV (09:31)
[2025-11-22 09:46] LABS: COVID-19 PCR Negative (Negative); RSV PCR Negative (Negative)
[2025-11-22] MEDS: Lidocaine 2% Jelly 6 ML SYR (09:48)
--- NOTE | 2025-11-22 09:51 | W.PM.HP.N ---
Date of service: 11/22/25 Time of Service: 09:31 Assessment and Plan Assessment and plan (1) Acute respiratory failure: Status: Acute Assessment and plan: Hypoxic, intubated in ED with severe distress. Appears secondary to acute respiratory infection, though not clear infiltrate on CXR. CT confirms multifocal pneumonia Has history of respiratory allergy to ketoralac, but presentation not c/w anaphylaxis Not high risk of PE, negative d-dimer reassuring Flu/COVID/RSV negative but in season and clinically c/w influenza, should cover with oseltamivir given season and severe illness. On cefepime/vanco. MRSA PCR and sputum culture pending. Continue broad spectrum antibiotics. Added UDS to assess exposure (2) Severe sepsis: Status: Acute Assessment and plan: Meets sepsis criteria with fever, WBC, RR, lactic acidosis. Received 2 liters NS in ED. BP high. With lung infection and troponins will not push to full 30ml/kg at this point. (3) Multifocal pneumonia: Status: Acute Assessment and plan: On vanco/cefempine/doxy continue steroids and nebs as smoking history and wheezing (4) Smoker unmotivated to quit: Status: Acute Assessment and plan: intubated now, NRT prn and counseling before discharge. (5) Diabetes mellitus type 2, noninsulin dependent: Assessment and plan: listed as pre-DM but has two hgb A1c levels >6.5% despite metformin. He is on steroids. Monitor FS glucose and cover with low dose sliding scale to start. Hold metformin. (6) Class 2 obesity without serious comorbidity with body mass index (BMI) of 37.0 to 37.9 in adult: Status: Acute Assessment and plan: Noted. Has been loosing weight. 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 (7) Myocardial injury: Status: Acute Assessment and plan: troponin initially increased by 14, but back down on trend. This is consistent with mild demand ischemia. EKG reassuring. He is on aspirin but I agree anticoagulation not indicated. Get lipids with labs to assess assistant terminal manager risk. With DM he should be on therapy. (8) Hypomagnesemia: Status: Acute Assessment and plan: supplement IV, may help wheezing Discharge Planning Discharge Planning: pending extubation and clinic improvement, suspect 2-3 days but unclear. History of Present Illness History of Present Illness Chief Complaint: SOB Narrative: 50 yo M smoker, with mild type 2 DM, BMI 34 who presented with 1 days of progressive cough, shortness of breath, and fever. He woke feeling well yesterday but started coughing, fever, nausea, and general malaise. Chest hurt with cough and deep breath. His sympotms worsened and he presented to the emergency room this morning in severe respiratory distress. BiPAP was attempted but he did not tolerate this and was intubated. He told his mom he was exposed to someone sick and coughing the previous week. He works outside [email or web address], has not had any travel. She confirms he has no history of asthma or other chronic respiratory diagnoses or symtoms. Review of Systems Unobtainable due to endotracheal tube PFSH All Active Problems (Updated 11/22/25 @ 13:04 by Bang Henley) Multifocal pneumonia (Acute) Hypomagnesemia (Acute) Myocardial injury (Acute) Severe sepsis (Acute) Leukocytosis (Acute) Acute lactic acidosis (Acute) Acute respiratory failure (Acute) Acute bronchitis (Acute) Abscess of groin, right (Acute) Breast pain, right (Acute) Class 2 obesity without serious comorbidity with body mass index (BMI) of 37.0 to 37.9 in adult (Acute) Smoker unmotivated to quit (Acute) Marijuana smoker, continuous (Acute) History of prediabetes (Acute) Gynecomastia, male (Acute) Abrasion of leg, right, infected (Acute) Cellulitis of leg, right (Acute) Ankle sprain (Acute) Medical History (Updated 11/22/25 @ 13:04 by Bang Henley) H/O allergic reaction to aspirin/NSAIDs, had observed trial at [facility] [place], [place] Diabetes mellitus type 2, noninsulin dependent Migraine Anxiety Intracranial aneurysm Obesity (BMI 35.0-39.9 without comorbidity) Hypertension Surgical History Tympanic membrane rupture with repair History of thyroid surgery H/O right wrist surgery History of appendectomy Brain aneurysm Coiling and clipping x 2 Social History Smoking/Tobacco Use Status: Current every day Tobacco Type: cigarettes Smoking risk assessment performed?: Yes Alcohol Intake: former Drug use: Current Sobriety Substance use type: does not use Housing: house Do you feel safe at home: Yes Do you feel safe in your relationship?: Yes Meds Allergies and Home Medications Allergies Allergy/AdvReac Type Severity Reaction Status Date / Time lisinopril Allergy Severe rash Verified 11/22/25 07:18 ketorolac (From Toradol) Allergy Intermediate he Verified 11/22/25 07:18 stopped breathing tramadol Allergy Unknown Dizziness/L Unverified 11/22/25 07:18 ighthead Home Medications ?Medication ?Instructions ?Recorded ?Confirmed ?Type aspirin 81 mg chewable tablet 81 mg PO DAILY 01/30/20 11/22/25 History hydroxyzine HCl 25 mg tablet 25 mg PO QHS PRN 06/21/21 11/22/25 History acetaminophen 500 mg tablet 1,000 mg PO PRN PRN 12/23/21 11/22/25 History (Acetaminophen Extra Strength) metformin 500 mg tablet 1,000 mg PO BID 04/30/24 11/22/25 History Exam Narrative Exam Narrative: GEN: Intubated and sedated. Obese but muscular habitus. Diaphoretic. HEENT: Head atraumatic. Conjunctiva clear, no icterus. PEERL. some rhinorrhea. entrotracheal tube in place. Neck is supple with no masses or lymphadenopathy, trachea midline LUNGS: Diffuse course breath sounds with expiratory rhonchi, no rales. On vent. CV: RRR with no murmurs, gallops, or rubs. ABD: active bowel sounds, soft and nondistended. No masses. EXT: no cyanosis, clubbing, or edema MSK: No joint redness or swelling NEURO: On sedation. He is occaisionally moving 4 extremities, non focal SKIN: No rashes or open wounds. Results Imaging CT scan - chest: report reviewed (1. Patchy bilateral infiltrates, most prominent in the left lower lobe. No pleural effusions nor obvious intrathoracic adenopathy. 2. Both the endotracheal and NG tubes are in satisfactory position.) EKG: report reviewed and image reviewed (NSR, nl axis/intervals, no ischemic changes) Labs 11/22/25 07:27 11/22/25 07:27 Labs: Laboratory Results - last 24 hr 11/22/25 11/22/25 11/22/25 07:27 08:35 08:50 WBC 15.77 H RBC 4.72 Hgb 14.8 Hct 42.6 MCV 90 MCH 31.4 MCHC 34.7 RDW 11.9 Plt Count 251 MPV 9.1 Immature Gran % 0.3 Neutrophils % 90.3 Lymphocytes % 4.8 Monocytes % 3.9 Eosinophils % 0.5 Basophils % 0.2 Nucleated RBC % 0.0 Absolute Neutrophils 14.24 H Absolute Lymphocytes 0.76 L Absolute Monocytes 0.62 Absolute Eosinophils 0.08 Absolute Basophils 0.03 D-Dimer 342 VBG pH 7.46 H VBG pCO2 38 L VBG pO2 56 VBG HCO3 27 VBG Total CO2 23 L VBG O2 Saturation 92 VBG Base Excess 3 VBG Lactate 2.3 H* Sodium 137 Potassium 3.8 Chloride 102 Carbon Dioxide 26.3 Anion Gap 8.7 BUN 10 Creatinine 0.78 Est GFR (CKD-EPI 2020) 105.74 Glucose 184 H Calcium 9.0 Troponin I 38 Urine Color Yellow Urine Clarity Clear Urine pH 5.5 Ur Specific [place] >= 1.030 H Urine Protein >=300 H Urine Ketones 15 H Urine Blood Small H Urine Nitrite Negative Urine Bilirubin Negative Urine Urobilinogen 0.2 Ur Leukocyte Esterase Negative Urine RBC 3-5 H Urine WBC Negative Ur Epithelial Cells Moderate Urine Crystals Negative Urine Bacteria Negative Urine Casts 3-5 Hyaline Urine Mucus Moderate Ur Culture Indicated? No Urine Glucose 100 H COVID-19 Source Nasopharynx SARS-CoV-2 (PCR) Negative Influenza Type A (PCR) Negative Influenza Type B (PCR) Negative RSV (PCR) Negative Last Vital Signs Temp 39.3 C H 11/22/25 07:15 Pulse 93 H 11/22/25 07:45 Resp 46 H 11/22/25 07:45 BP 174/92 H 11/22/25 07:15 Pulse Ox 100 11/22/25 07:45 VTE Prohylaxis Risk Level: Moderate/High Risk Contraindications: None Prophylaxis: Pharmacologic Time Spent Time spent with Patient: >75 minutes Time was spent: preparing to see the patient(eg.review tests), obtaining and/or reviewing separately otained hiistory, ordering medications,tests, procedures, referring, communicating with other health childcare teacher, indepentently interpreting results, counseling the patient, care coordination and other
[2025-11-22] MEDS: Levalbuterol 1.25 MG/3 ML UPD VIAL UPD (10:20)
[2025-11-22 10:25] LABS: Troponin I 52 ng/L (<54)
[2025-11-22] MEDS: VANCOMYCIN/WATER (PEG) 2 GM/400 ML BAG IVPB (10:27)
--- NOTE | 2025-11-22 10:30 | RT.EKG_ITS ---
APPROVED REPORT Exam: Resting ECG Reason for Exam: SOB Patient Location: E HR:75 bpm ECG Measurements Heart Rate 75 AXIS MS 161 P 56 QRSd 84 QRS 63 QT 407 T 25 QTc 456 Conclusion Sinus rhythm...normal P axis, V-rate 60- 99 No Occlusion WI
[2025-11-22] MEDS: Albuterol 2.5 MG/3 ML INH SOLN VIAL UPD ×2 (10:49→20:15)
[2025-11-22] MEDS: Aspirin 300 MG SUPP PR (10:53)
[2025-11-22 11:40] LABS: Magnesium 1.3 mg/dL (1.6-2.6)
[2025-11-22 11:42] LABS: ALT 31 U/L (10-49); AST 32 U/L (<34); Albumin 4.7 g/dL (3.2-5.0); Alkaline Phosphatase 69 U/L (46-116); Bilirubin, Direct 0.3 mg/dL (<=0.3); Bilirubin, Total 0.9 mg/dL (0.2-1.2); Total Protein 7.6 g/dL (5.7-8.2)
[2025-11-22 11:43] LABS: Lab Add On Test DONE
[2025-11-22 12:24] LABS: Troponin I 41 ng/L (<54)
[2025-11-22] MEDS: PROPOFOL 1,000 MG/100 ML BTL 42.1 MG IVPB (12:28)
[2025-11-22] MEDS: MAGNESIUM SULFATE 2 GM/50 ML BAG IV_INF (13:19)
[2025-11-22] MEDS: Insulin Aspart 300 UNITS/3 ML PEN SC ×2 (13:26→18:57)
[2025-11-22] MEDS: POTASSIUM CHLORIDE/0.45% NACL 1,000 ML 125 MEQ IV ×2 (13:40→22:21)
--- NOTE | 2025-11-22 13:47 | PHA.REVIEW2 ---
Pharmacy Admission Review Admission Clinical Review Admission Pharmacy Review: Multifocal pneumonia (Acute) Hypomagnesemia (Acute) Myocardial injury (Acute) Severe sepsis (Acute) Leukocytosis (Acute) Acute lactic acidosis (Acute) Acute respiratory failure (Acute) Class 2 obesity without serious comorbidity with body mass index (BMI) of 37.0 to 37.9 in adult (Acute) Smoker unmotivated to quit (Acute) lisinopril Allergy (Severe, Verified 11/22/25 07:18) rash ketorolac (From Toradol) Allergy (Intermediate, Verified 11/22/25 07:18) he stopped breathing tramadol Allergy (Unknown, Unverified 11/22/25 07:18) Dizziness/Lighthead Resuscitation Status Full Code Height 5 ft 10 in Weight 115.3 kg Comments Comments/Follow Ups: Follow up on home med question once patient is extubated Pharmacy Admission Review Renal Dosing Renal Dosing: BUN 10 mg/dL (9-23) 11/22/25 07:27 Creatinine 0.78 mg/dL (0.73-1.18) 11/22/25 07:27 Medications needing adjustments: Reviewed (CrCl 145 mL/min) List of meds needing interventions: Current medications are okay Anticoagulation Anticoagulation: Hgb 14.8 g/dL (13.5-17.5) 11/22/25 07:27 Hct 42.6 % (40.0-50.0) 11/22/25 07:27 Plt Count 251 10^3/uL (130-400) 11/22/25 07:27 Creatinine 0.78 mg/dL (0.73-1.18) 11/22/25 07:27 DVT Prophylaxis: Reviewed Medications: Enoxaparin (40mg daily) Relevant Labs Relevant Labs: Sodium 137 mmol/L (136-145) 11/22/25 07:27 Potassium 3.8 mmol/L (3.5-5.1) 11/22/25 07:27 Chloride 102 mmol/L (98-107) 11/22/25 07:27 Magnesium 1.3 mg/dL (1.6-2.6) L 11/22/25 07:27 Electrolytes, C-Reactive P, ESR: Reviewed (received Mg 2gm IV infusion at 1300) DM Control DM Control: Glucose 184 mg/dL (74-106) H 11/22/25 07:27 Finger Stick Blood Glucose 259 1326 Finger Stick Blood Glucose 259 1320 Finger Stick Blood Glucose 259 1320 DM Control: Reviewed Insulin Dosing, Diabetic Medication: Has order for SS insulin Cardiac Review Cardiac Review: Troponin I 41 ng/L (<54) 11/22/25 11:55 BP, HR, EF%: Reviewed (BP and HR WNL) List meds needing interventions: Currently on dexmedetomidine drip at 0.65mcg/kg/hr, norepinephrine drip at 9.4ml/hr, and propofol drip at 64.45mcg/kg/min QTc Review QTc: Reviewed (413 from 11/22/25) IV to PO Switch IV Medications: Reviewed (intubated) Home Meds Home Med List reviewed: Reviewed Relevent Home Meds Not ordered & why?: metformin (on hold per H+P) and hydroxyzine (PRN) Recently filled Olmesartan but not on home med list. Will ask nurse to verify with patient once extubated. Current Meds Current Medication Order Review: Reviewed Pharmacy Antibiotic Review Relevant Labs: WBC 15.77 10^3/uL (4.4-10.8) H 11/22/25 07:27 Temperature 36.6 C Temperature 36.6 C Temperature 37.2 C Temperature 39.3 C Pharmacy Antibiotic Activity: C/S review and Reviewed, no change Comments: Patient is on cefepime, doxycycline and vancomycin (day 1) for acute respiratory infection/severe sepsis. Current vancomycin dose is 1500mg q12h with predicted AUC of 550. Ordered level for tonight at 2000, will adjust dose as needed based on results. Blood cultures pending. Patient is on also on Tamiflu, day 1, 75mg BID Comments Comments/Follow Ups: Follow up on home med question once patient is extubated
[2025-11-22] MEDS: methylPREDNISolone SUCC 125 MG VIAL 80 MG IVP ×2 (14:35→22:30)
[2025-11-22] MEDS: PROPOFOL 1,000 MG/100 ML BTL 49.1 MG IVPB (14:51)
[2025-11-22] MEDS: dexmedeTOMidine IN 0.9 % NACL 400 MCG/100 ML BTL 29.2 MCG IV (14:53)
[2025-11-22 15:12] LABS: BE (Venous) -7 mmol/L (-2-3); HCO3 (Venous) 20 mmol/L (23-28); O2 Sat (Venous) 96 %; TCO2 (Venous) 19 mmol/L (24-29); pCO2 (Venous) 44 mmHg (41-51); pO2 (Venous) 82 mmHg
[2025-11-22 16:03] LABS: Cannabinoids THC Positive (Negative)
[2025-11-22] MEDS: Normal Saline Flush 10 ML SYR IVP ×2 (16:15→19:35)
[2025-11-22] MEDS: Lactated Ringers 1,000 ML 1000 ML IV (16:15)
[2025-11-22] MEDS: Acetaminophen 650 MG SUPP PR ×2 (16:17→20:23)
[2025-11-22] MEDS: fentaNYL 1,000 MCG in Normal Saline 80 ML 5.765 MCG IV_INF (16:39)
[2025-11-22] MEDS: PROPOFOL 1,000 MG/100 ML BTL 52.254 MG IVPB ×4 (17:03→22:55)
[2025-11-22] MEDS: dexmedeTOMidine IN 0.9 % NACL 400 MCG/100 ML BTL 40.823 MCG IV ×3 (17:04→22:00)
[2025-11-22 17:23] LABS: MRSA PCR Negative (Negative)
[2025-11-22 18:27] LABS: BE (Venous) -5 mmol/L (-2-3); HCO3 (Venous) 21 mmol/L (23-28); O2 Sat (Venous) 95 %; TCO2 (Venous) 19 mmol/L (24-29); pCO2 (Venous) 44 mmHg (41-51); pO2 (Venous) 73 mmHg
[2025-11-22] MEDS: Oseltamivir 75 MG CAP PO (19:35)
[2025-11-22] MEDS: fentaNYL 1,000 MCG in Normal Saline 80 ML 34.59 MCG IV_INF (20:14)
[2025-11-22] MEDS: Chlorhexidine Gluconate 0.12% Mouthwash 15 ML BTL MM (20:33)
--- NOTE | 2025-11-22 20:38 | W.PC.ACHO ---
Registration Status: ADM IN Primary Language: Preferred Language: Turkmen ED Information & Data Chief Complaint SOB 11/22/25 07:18 Chief Complaint SOB 11/22/25 07:15 Triage Note Pt reports a few days of SOB 11/22/25 07:15 that got worse today- nonproductive cough, wheezing, visible increased work of breathing Medical / Surgical History (Last Updated 11/22/25 @ 12:59 by Bang Henley) H/O allergic reaction Diabetes mellitus type 2, noninsulin dependent Migraine Anxiety Intracranial aneurysm Obesity (BMI 35.0-39.9 without comorbidity) Hypertension (Last Reviewed 11/22/25 @ 12:50 by Bang Henley) Tympanic membrane rupture History of thyroid surgery H/O right wrist surgery History of appendectomy Brain aneurysm Most Recent Vital Signs Temperature 36.9 C 11/22/25 17:35 Temperature Source Tympanic 11/22/25 17:35 Pulse 90 11/22/25 19:01 Pulse 90 11/22/25 19:01 Respiratory Rate 23 11/22/25 19:01 Respiratory Effort Accessory Muscle Use 11/22/25 11:45 Respiratory Depth Normal 11/22/25 11:45 Respiratory Pattern Tachypnea 11/22/25 11:45 Blood Pressure 128/74 11/22/25 19:00 Blood Pressure Mean 89 11/22/25 19:00 Blood Pressure Position Supine 11/22/25 11:45 Pulse Oximetry 95 11/22/25 19:01 Respiratory End-tidal CO2 38 11/22/25 18:21 Oxygen Delivery Method Mechanical Ventilator 11/22/25 18:18 Oxygen Flow Rate 0 11/22/25 18:18 Fraction of Inspired Oxygen (FIO2) 55 11/22/25 18:21 Pain Level 0 11/22/25 11:45 Allergies lisinopril Allergy (Severe, Verified 11/22/25 07:18) rash ketorolac (From Toradol) Allergy (Intermediate, Verified 11/22/25 07:18) he stopped breathing surgery was at [place] [id number] tramadol Allergy (Unknown, Unverified 11/22/25 07:18) Dizziness/Lighthead Precautions Isolation Standard precaution 11/22/25 07:18 Active Medications Generic Name Dose Route Start Last Admin Trade Name Freq PRN Reason Stop Dose Admin Acetaminophen 650 mg 11/22/25 09:43 11/22/25 20:23 Acetaminophen 650 Mg Supp IN 650 mg Q4H PRN PRN Administration Albuterol Sulfate 2.5 mg 11/22/25 10:45 11/22/25 10:49 Albuterol 2.5 Mg/3 Ml Inh Soln Vial UPD 2.5 mg Q4H PRN PRN Administration Albuterol/Ipratropium 3 ml 11/22/25 16:00 11/22/25 18:18 Albuterol/Ipratropium 3 Ml Upd Vial UPD 3 ml Q6H JOHNSON Administration Chlorhexidine Gluconate 0 ml 11/22/25 20:00 11/22/25 20:33 Chlorhexidine Gluconate 0.12% Mouthwash 15 Ml Btl MM 15 ml BID JOHNSON Administration Hydromorphone HCl 1 mg 11/22/25 14:09 11/22/25 16:15 Hydromorphone 2 Mg/Ml Syr IVP 1 mg Q2H PRN PRN Administration Propofol 1,000 mg in 100 mls @ 3.266 mls/hr 11/22/25 08:00 11/22/25 18:56 Diprivan IVPB 80 mcg/kg/min INFUSION JOHNSON 52.254 mls/hr Protocol Administration 5 MCG/KG/MIN Norepinephrine Bitartrate 8 mg in 250 mls @ 0 mls/hr 11/22/25 08:00 11/22/25 14:20 IV 0 mls/hr INFUSION JOHNSON 0 mls/hr Protocol Titration Per Protocol Dexmedetomidine/Sodium Chloride 400 mcg in 100 mls @ 10.886 mls/hr 11/22/25 09:15 11/22/25 19:32 Precedex IV 1.5 mcg/kg/hr INFUSION JOHNSON 40.823 mls/hr Protocol Administration 0.4 MCG/KG/HR Potassium Chloride/Sodium Chloride 1,000 mls @ 125 mls/hr 11/22/25 09:45 11/22/25 17:59 Kcl 20meq/0.45% Nacl IV 125 mls/hr INFUSION [facility] Infusion Cefepime HCl 2 gm/ Sodium 100 mls @ 200 mls/hr 11/22/25 16:00 11/22/25 18:00 Chloride IVPB Infused Q8H [facility] Infusion Doxycycline Hyclate 100 mg/ 100 mls @ 100 mls/hr 11/22/25 20:00 11/22/25 19:34 Sodium Chloride IVPB 100 mls/hr Q12H JOHNSON Administration Fentanyl 1,000 mcg/ Sodium 100 mls @ 5.765 mls/hr 11/22/25 16:00 11/22/25 20:14 Chloride IV_INF 3 mcg/kg/hr INFUSION JOHNSON 34.59 mls/hr Protocol Administration 0.5 MCG/KG/HR Methylprednisolone Sodium Succinate 80 mg 11/22/25 14:00 11/22/25 14:35 Methylprednisolone Succ 125 Mg Vial IVP 80 mg Q8H JOHNSON Administration Oseltamivir Phosphate 75 mg 11/22/25 20:00 11/22/25 19:35 Oseltamivir 75 Mg Cap PO 75 mg BID JOHNSON Administration Sodium Chloride 0 ml 11/22/25 07:15 11/22/25 16:15 Normal Saline Flush 10 Ml Syr IVP 30 ml PRN PRN Administration Sodium Chloride 0 ml 11/22/25 08:30 11/22/25 19:35 Normal Saline Flush 10 Ml Syr IVP 20 ml BID JOHNSON Administration IV IV Catheter Type [Left Forearm Peripheral IV ] IV Catheter Type [Right Hand] Saline Lock IV Catheter Type [Right Peripheral IV Antecubital] IV Catheter Type [Left Peripheral IV Antecubital] IV Catheter Gauge [Left 18 Forearm] IV Catheter Gauge [Right Hand] 20 IV Catheter Gauge [Right 18 Antecubital] IV Catheter Gauge [Left 18 Antecubital] Diagnostics 11/22/25 11/22/25 11/22/25 Range/Units 20:02 18:22 15:52 WBC (4.4-10.8) 10^3/uL RBC (4.36-5.78) 10^6/uL Hgb (13.5-17.5) g/dL Hct (40.0-50.0) % MCV (80-95) fL MCH (27.0-33.0) pg MCHC (32.0-36.0) % RDW (11.8-14.1) % Plt Count (130-400) 10^3/uL MPV (8.0-11.0) fL Immature Gran % % Neutrophils % % Lymphocytes % % Monocytes % % Eosinophils % % Basophils % % Nucleated RBC % (0.0-0.3) % Absolute Neutrophils (1.2-6.7) 10^3/uL Absolute Lymphocytes (1.2-3.4) 10^3/uL Absolute Monocytes (0.1-0.8) 10^3/uL Absolute Eosinophils (0.0-0.7) 10^3/uL Absolute Basophils (0.0-0.2) 10^3/uL D-Dimer (<500) ng/mlFEU VBG pH 7.30 L (7.31-7.41) VBG pCO2 44 (41-51) mmHg VBG pO2 73 mmHg VBG HCO3 21 L (23-28) mmol/L VBG Total CO2 19 L (24-29) mmol/L VBG O2 Saturation 95 % VBG Base Excess -5 L (-2-3) mmol/L VBG Lactate 4.9 H* (<or=2.0) mmol/L Sodium (136-145) mmol/L Potassium (3.5-5.1) mmol/L Chloride (98-107) mmol/L Carbon Dioxide (20.0-31.0) mmol/L Anion Gap (3-11) mmol/L BUN (9-23) mg/dL Creatinine (0.73-1.18) mg/dL Est GFR (CKD-EPI 2020) (mL/min/1.73m2) Glucose (74-106) mg/dL Calcium (8.3-10.6) mg/dL Magnesium (1.6-2.6) mg/dL Total Bilirubin (0.2-1.2) mg/dL Conjugated Bilirubin (<=0.3) mg/dL AST (<34) U/L ALT (10-49) U/L Alkaline Phosphatase (46-116) U/L Troponin I (<54) ng/L Total Protein (5.7-8.2) g/dL Albumin (3.2-5.0) g/dL Urine Color (Yellow) Urine Clarity (Clear) Urine pH (5-8) Ur Specific Woodruff (1.005-1.025) Urine Protein (Neg-Trace) mg/dL Urine Ketones (Negative) mg/dL Urine Blood (Negative) Urine Nitrite (Negative) Urine Bilirubin (Negative) Urine Urobilinogen (Up to 0.2) mg/dL Ur Leukocyte Esterase (Negative) Urine RBC (0-2) HPF Urine WBC (0-5) HPF Ur Epithelial Cells (Negative) HPF Urine Crystals (Negative) HPF Urine Bacteria (Negative) HPF Urine Casts (Negative) LPF Urine Mucus (Negative) Ur Culture Indicated? Urine Glucose (Negative) mg/dL Random Vancomycin Pending Urine Opiates Screen (Negative) Urine Methadone Screen (Negative) Ur Barbiturates Screen (Negative) Ur Tricyclics Screen (Negative) Ur Amphetamines Screen (Negative) U Benzodiazepines Scrn (Negative) Urine Cocaine Screen (Negative) U Cannabinoids Screen (Negative) COVID-19 Source SARS-CoV-2 (PCR) (Negative) Influenza Type A (PCR) (Negative) Influenza Type B (PCR) (Negative) Urine Legionella Ag Pending RSV (PCR) (Negative) MRSA (TEM-PCR) (Negative) Add-On Test Request 11/22/25 11/22/25 11/22/25 Range/Units 15:05 11:55 10:04 WBC (4.4-10.8) 10^3/uL RBC (4.36-5.78) 10^6/uL Hgb (13.5-17.5) g/dL Hct (40.0-50.0) % MCV (80-95) fL MCH (27.0-33.0) pg MCHC (32.0-36.0) % RDW (11.8-14.1) % Plt Count (130-400) 10^3/uL MPV (8.0-11.0) fL Immature Gran % % Neutrophils % % Lymphocytes % % Monocytes % % Eosinophils % % Basophils % % Nucleated RBC % (0.0-0.3) % Absolute Neutrophils (1.2-6.7) 10^3/uL Absolute Lymphocytes (1.2-3.4) 10^3/uL Absolute Monocytes (0.1-0.8) 10^3/uL Absolute Eosinophils (0.0-0.7) 10^3/uL Absolute Basophils (0.0-0.2) 10^3/uL D-Dimer (<500) ng/mlFEU VBG pH 7.28 L (7.31-7.41) VBG pCO2 44 (41-51) mmHg VBG pO2 82 mmHg VBG HCO3 20 L (23-28) mmol/L VBG Total CO2 19 L (24-29) mmol/L VBG O2 Saturation 96 % VBG Base Excess -7 L (-2-3) mmol/L VBG Lactate 5.6 H* (<or=2.0) mmol/L Sodium (136-145) mmol/L Potassium (3.5-5.1) mmol/L Chloride (98-107) mmol/L Carbon Dioxide (20.0-31.0) mmol/L Anion Gap (3-11) mmol/L BUN (9-23) mg/dL Creatinine (0.73-1.18) mg/dL Est GFR (CKD-EPI 2020) (mL/min/1.73m2) Glucose (74-106) mg/dL Calcium (8.3-10.6) mg/dL Magnesium (1.6-2.6) mg/dL Total Bilirubin (0.2-1.2) mg/dL Conjugated Bilirubin (<=0.3) mg/dL AST (<34) U/L ALT (10-49) U/L Alkaline Phosphatase (46-116) U/L Troponin I 41 52 (<54) ng/L Total Protein (5.7-8.2) g/dL Albumin (3.2-5.0) g/dL Urine Color (Yellow) Urine Clarity (Clear) Urine pH (5-8) Ur Specific Woodruff (1.005-1.025) Urine Protein (Neg-Trace) mg/dL Urine Ketones (Negative) mg/dL Urine Blood (Negative) Urine Nitrite (Negative) Urine Bilirubin (Negative) Urine Urobilinogen (Up to 0.2) mg/dL Ur Leukocyte Esterase (Negative) Urine RBC (0-2) HPF Urine WBC (0-5) HPF Ur Epithelial Cells (Negative) HPF Urine Crystals (Negative) HPF Urine Bacteria (Negative) HPF Urine Casts (Negative) LPF Urine Mucus (Negative) Ur Culture Indicated? Urine Glucose (Negative) mg/dL Random Vancomycin Urine Opiates Screen (Negative) Urine Methadone Screen (Negative) Ur Barbiturates Screen (Negative) Ur Tricyclics Screen (Negative) Ur Amphetamines Screen (Negative) U Benzodiazepines Scrn (Negative) Urine Cocaine Screen (Negative) U Cannabinoids Screen (Negative) COVID-19 Source SARS-CoV-2 (PCR) (Negative) Influenza Type A (PCR) (Negative) Influenza Type B (PCR) (Negative) Urine Legionella Ag RSV (PCR) (Negative) MRSA (TEM-PCR) (Negative) Add-On Test Request 11/22/25 11/22/25 11/22/25 Range/Units 10:00 08:50 08:35 WBC (4.4-10.8) 10^3/uL RBC (4.36-5.78) 10^6/uL Hgb (13.5-17.5) g/dL Hct (40.0-50.0) % MCV (80-95) fL MCH (27.0-33.0) pg MCHC (32.0-36.0) % RDW (11.8-14.1) % Plt Count (130-400) 10^3/uL MPV (8.0-11.0) fL Immature Gran % % Neutrophils % % Lymphocytes % % Monocytes % % Eosinophils % % Basophils % % Nucleated RBC % (0.0-0.3) % Absolute Neutrophils (1.2-6.7) 10^3/uL Absolute Lymphocytes (1.2-3.4) 10^3/uL Absolute Monocytes (0.1-0.8) 10^3/uL Absolute Eosinophils (0.0-0.7) 10^3/uL Absolute Basophils (0.0-0.2) 10^3/uL D-Dimer (<500) ng/mlFEU VBG pH (7.31-7.41) VBG pCO2 (41-51) mmHg VBG pO2 mmHg VBG HCO3 (23-28) mmol/L VBG Total CO2 (24-29) mmol/L VBG O2 Saturation % VBG Base Excess (-2-3) mmol/L VBG Lactate (<or=2.0) mmol/L Sodium (136-145) mmol/L Potassium (3.5-5.1) mmol/L Chloride (98-107) mmol/L Carbon Dioxide (20.0-31.0) mmol/L Anion Gap (3-11) mmol/L BUN (9-23) mg/dL Creatinine (0.73-1.18) mg/dL Est GFR (CKD-EPI 2020) (mL/min/1.73m2) Glucose (74-106) mg/dL Calcium (8.3-10.6) mg/dL Magnesium (1.6-2.6) mg/dL Total Bilirubin (0.2-1.2) mg/dL Conjugated Bilirubin (<=0.3) mg/dL AST (<34) U/L ALT (10-49) U/L Alkaline Phosphatase (46-116) U/L Troponin I (<54) ng/L Total Protein (5.7-8.2) g/dL Albumin (3.2-5.0) g/dL Urine Color Yellow (Yellow) Urine Clarity Clear (Clear) Urine pH 5.5 (5-8) Ur Specific Woodruff >= 1.030 H (1.005-1.025) Urine Protein >=300 H (Neg-Trace) mg/dL Urine Ketones 15 H (Negative) mg/dL Urine Blood Small H (Negative) Urine Nitrite Negative (Negative) Urine Bilirubin Negative (Negative) Urine Urobilinogen 0.2 (Up to 0.2) mg/dL Ur Leukocyte Esterase Negative (Negative) Urine RBC 3-5 H (0-2) HPF Urine WBC Negative (0-5) HPF Ur Epithelial Cells Moderate (Negative) HPF Urine Crystals Negative (Negative) HPF Urine Bacteria Negative (Negative) HPF Urine Casts 3-5 Hyaline (Negative) LPF Urine Mucus Moderate (Negative) Ur Culture Indicated? No Urine Glucose 100 H (Negative) mg/dL Random Vancomycin Urine Opiates Screen Positive A (Negative) Urine Methadone Screen Negative (Negative) Ur Barbiturates Screen Negative (Negative) Ur Tricyclics Screen Negative (Negative) Ur Amphetamines Screen Negative (Negative) U Benzodiazepines Scrn Negative (Negative) Urine Cocaine Screen Positive A (Negative) U Cannabinoids Screen Positive A (Negative) COVID-19 Source Nasopharynx SARS-CoV-2 (PCR) Negative (Negative) Influenza Type A (PCR) Negative (Negative) Influenza Type B (PCR) Negative (Negative) Urine Legionella Ag RSV (PCR) Negative (Negative) MRSA (TEM-PCR) Negative (Negative) Add-On Test Request 11/22/25 Range/Units 07:27 WBC 15.77 H (4.4-10.8) 10^3/uL RBC 4.72 (4.36-5.78) 10^6/uL Hgb 14.8 (13.5-17.5) g/dL Hct 42.6 (40.0-50.0) % MCV 90 (80-95) fL MCH 31.4 (27.0-33.0) pg MCHC 34.7 (32.0-36.0) % RDW 11.9 (11.8-14.1) % Plt Count 251 (130-400) 10^3/uL MPV 9.1 (8.0-11.0) fL Immature Gran % 0.3 % Neutrophils % 90.3 % Lymphocytes % 4.8 % Monocytes % 3.9 % Eosinophils % 0.5 % Basophils % 0.2 % Nucleated RBC % 0.0 (0.0-0.3) % Absolute Neutrophils 14.24 H (1.2-6.7) 10^3/uL Absolute Lymphocytes 0.76 L (1.2-3.4) 10^3/uL Absolute Monocytes 0.62 (0.1-0.8) 10^3/uL Absolute Eosinophils 0.08 (0.0-0.7) 10^3/uL Absolute Basophils 0.03 (0.0-0.2) 10^3/uL D-Dimer 342 (<500) ng/mlFEU VBG pH 7.46 H (7.31-7.41) VBG pCO2 38 L (41-51) mmHg VBG pO2 56 mmHg VBG HCO3 27 (23-28) mmol/L VBG Total CO2 23 L (24-29) mmol/L VBG O2 Saturation 92 % VBG Base Excess 3 (-2-3) mmol/L VBG Lactate 2.3 H* (<or=2.0) mmol/L Sodium 137 (136-145) mmol/L Potassium 3.8 (3.5-5.1) mmol/L Chloride 102 (98-107) mmol/L Carbon Dioxide 26.3 (20.0-31.0) mmol/L Anion Gap 8.7 (3-11) mmol/L BUN 10 (9-23) mg/dL Creatinine 0.78 (0.73-1.18) mg/dL Est GFR (CKD-EPI 2020) 105.74 (mL/min/1.73m2) Glucose 184 H (74-106) mg/dL Calcium 9.0 (8.3-10.6) mg/dL Magnesium 1.3 L (1.6-2.6) mg/dL Total Bilirubin 0.9 (0.2-1.2) mg/dL Conjugated Bilirubin 0.3 (<=0.3) mg/dL AST 32 (<34) U/L ALT 31 (10-49) U/L Alkaline Phosphatase 69 (46-116) U/L Troponin I 38 (<54) ng/L Total Protein 7.6 (5.7-8.2) g/dL Albumin 4.7 (3.2-5.0) g/dL Urine Color (Yellow) Urine Clarity (Clear) Urine pH (5-8) Ur Specific Woodruff (1.005-1.025) Urine Protein (Neg-Trace) mg/dL Urine Ketones (Negative) mg/dL Urine Blood (Negative) Urine Nitrite (Negative) Urine Bilirubin (Negative) Urine Urobilinogen (Up to 0.2) mg/dL Ur Leukocyte Esterase (Negative) Urine RBC (0-2) HPF Urine WBC (0-5) HPF Ur Epithelial Cells (Negative) HPF Urine Crystals (Negative) HPF Urine Bacteria (Negative) HPF Urine Casts (Negative) LPF Urine Mucus (Negative) Ur Culture Indicated? Urine Glucose (Negative) mg/dL Random Vancomycin Urine Opiates Screen (Negative) Urine Methadone Screen (Negative) Ur Barbiturates Screen (Negative) Ur Tricyclics Screen (Negative) Ur Amphetamines Screen (Negative) U Benzodiazepines Scrn (Negative) Urine Cocaine Screen (Negative) U Cannabinoids Screen (Negative) COVID-19 Source SARS-CoV-2 (PCR) (Negative) Influenza Type A (PCR) (Negative) Influenza Type B (PCR) (Negative) Urine Legionella Ag RSV (PCR) (Negative) MRSA (TEM-PCR) (Negative) Add-On Test Request DONE 11/22/25 20:00 Sputum Culture - Pending Sputum - Induced Gram Stain - Pending 11/22/25 07:43 Blood Culture - Pending Blood 11/22/25 07:27 Blood Culture - Pending Blood [id number] Documentation Fingerstick Glucose Start: 11/23/25 00:00 Freq: .Q6H Status: Active Protocol: Activity Type Activity Date Activity User E-sign Co-sign Detail Recorded Client Recorded Date Recorded By Document 11/22/25 18:54 BKG DAEMON(5) [id number] 11/22/25 18:55 BKG DAEMON(6) Intake and Output - 24 Hour Total 11/22/25 07:09 thru 11/22/25 20:14 Intake Total 5080.041 Output Total 2950 Balance 2130.041 Weight 115.3 kg Intake: IV 5080.041 Output: Gastric Drainage 0 Left Nare 0 Urine 2950 Other: Urine Color Pale Urine Appearance Clear Comment Indwelling Forbes catheter 450mls of clear yellow urine removed from collection bag. Falls Risk Assessment History of Falls No History 11/22/25 11:45 Contributing Factors Medications 11/22/25 11:45 Ambulatory Aids Independent 11/22/25 11:45 Tubes/Lines With any additional score 11/22/25 11:45 Gait Evaluation W/any additional score 11/22/25 11:45 Cognition Cognitive impairment 11/22/25 11:45 Fall Total Score 58 11/22/25 11:45 Level of Risk High Risk 11/22/25 11:45 Problems Multifocal pneumonia (Acute) Hypomagnesemia (Acute) Myocardial injury (Acute) Severe sepsis (Acute) Leukocytosis (Acute) Acute lactic acidosis (Acute) Acute respiratory failure (Acute) Class 2 obesity without serious comorbidity with body mass index (BMI) of 37.0 to 37.9 in adult (Acute) Smoker unmotivated to quit (Acute) Attestation Statement: By documenting the first initial, last name, and credentials of the reporting nurse below, both parties acknowledge that all relevant information regarding the patient handoff has been communicated, and that all questions have been addressed to ensure continuity and safety of care. Additional Patient Information/Comments: Report Received From: Cyndi Osborne RN
[2025-11-22 20:39] LABS: Vancomycin, Random 7.7 ug/mL
[2025-11-22] MEDS: VANCOMYCIN/WATER (PEG) 1.5 GM/300 ML BAG IVPB (22:30)
[2025-11-22] MEDS: fentaNYL 1,000 MCG in Normal Saline 80 ML 28.825 MCG IV_INF (23:23)
[2025-11-23] VITALS (43 sets, daily range): BP systolic 121–156; BP diastolic 67–97; PULSE 74–105; RESP 13–31; TEMP 36.8–38; O2SAT 90–95
[2025-11-23] MEDS: CEFEPIME 2 GM in Normal Saline 100 ML IVPB ×4 (00:17→23:43)
[2025-11-23] MEDS: dexmedeTOMidine IN 0.9 % NACL 400 MCG/100 ML BTL 40.823 MCG IV ×5 (00:17→10:01)
[2025-11-23] MEDS: Insulin Aspart 300 UNITS/3 ML PEN SC ×4 (00:18→18:06)
[2025-11-23] MEDS: PROPOFOL 1,000 MG/100 ML BTL 48.988 MG IVPB (00:50)
[2025-11-23 01:51] LABS: BE (Venous) -3 mmol/L (-2-3); HCO3 (Venous) 24 mmol/L (23-28); TCO2 (Venous) 21 mmol/L (24-29); pCO2 (Venous) 48 mmHg (41-51); pO2 (Venous) 130 mmHg
[2025-11-23 01:53] LABS: O2 Sat (Venous) > 99 %
[2025-11-23] MEDS: PROPOFOL 1,000 MG/100 ML BTL 45.722 MG IVPB ×4 (02:59→09:42)
[2025-11-23] MEDS: fentaNYL 1,000 MCG in Normal Saline 80 ML 23.06 MCG IV_INF ×2 (03:13→08:36)
[2025-11-23] MEDS: Albuterol/Ipratropium 3 ML UPD VIAL UPD ×4 (03:50→21:35)
[2025-11-23 05:42] LABS: BE (Venous) -2 mmol/L (-2-3); HCO3 (Venous) 24 mmol/L (23-28); O2 Sat (Venous) 85 %; TCO2 (Venous) 22 mmol/L (24-29); pCO2 (Venous) 48 mmHg (41-51); pO2 (Venous) 48 mmHg
[2025-11-23 06:07] LABS: Magnesium 2.1 mg/dL (1.6-2.6)
[2025-11-23 06:08] LABS: ALT 25 U/L (10-49); AST 20 U/L (<34); Albumin 4.1 g/dL (3.2-5.0); Alkaline Phosphatase 58 U/L (46-116); Anion Gap 8.5 mmol/L (3-11); BUN 13 mg/dL (9-23); Bilirubin, Total 0.4 mg/dL (0.2-1.2); CO2 24.5 mmol/L (20.0-31.0); Calcium 8.5 mg/dL (8.3-10.6); Chloride 111 mmol/L (98-107); Cholesterol 159 mg/dL (<200); Glucose 288 mg/dL (74-106); HDL Cholesterol 34 mg/dL (>or=40); Potassium 5.0 mmol/L (3.5-5.1); Sodium 144 mmol/L (136-145); Total Protein 6.6 g/dL (5.7-8.2)
[2025-11-23] MEDS: POTASSIUM CHLORIDE/0.45% NACL 1,000 ML 125 MEQ IV (06:27)
[2025-11-23] MEDS: methylPREDNISolone SUCC 125 MG VIAL 80 MG IVP ×3 (06:55→21:56)
[2025-11-23 07:07] LABS: Abs Immature Grans 0.04 10^3/uL (0.0-0.06); HCT 41.2 % (40.0-50.0); HGB 13.6 g/dL (13.5-17.5); Immature Grans % 0.4 %; MCH 31.5 pg (27.0-33.0); MCHC 33.0 % (32.0-36.0); MPV 9.7 fL (8.0-11.0); Platelet Count 196 10^3/uL (130-400); RBC 4.32 10^6/uL (4.36-5.78); RDW 12.1 % (11.8-14.1); RDW-SD 42.3 fL; WBC 9.99 10^3/uL (4.4-10.8)
[2025-11-23 07:18] LABS: MCV 95 fL (80-95)
[2025-11-23] MEDS: DEXTROSE 5%-0.45% SALINE 1,000 ML 125 ML IV ×2 (07:30→14:36)
[2025-11-23] MEDS: Albuterol 2.5 MG/3 ML INH SOLN VIAL UPD (08:12)
[2025-11-23] MEDS: DOXYCYCLINE 100 MG in Normal Saline 100 ML IVPB ×2 (08:17→19:08)
[2025-11-23] MEDS: Chlorhexidine Gluconate 0.12% Mouthwash 15 ML BTL MM ×2 (08:18→19:09)
[2025-11-23] MEDS: Enoxaparin 40 MG/0.4 ML SYR SC (08:18)
[2025-11-23] MEDS: Aspirin 81 MG CHEW PO (08:18)
[2025-11-23] MEDS: Oseltamivir 75 MG CAP PO ×2 (08:18→19:08)
[2025-11-23] MEDS: Normal Saline Flush 10 ML SYR IVP ×3 (08:22→23:44)
--- NOTE | 2025-11-23 09:26 | W.NUTRFU ---
Date of service: 11/23/25 Time of Service: 09:26 Nutrition Note NOTE: Received nutrition consult re: diabetes ed/mgt Pt current intubated and unable to obtain detailed diet history - will revisit for this as well as education and offer outpatient nutrition counseling for glucose mgt/weight loss. Last A1C 6.7% August of this year. History of high TGL's - recommend continue to monitor while receiving propofol. TGL's 190 today. 34 HDL today. Microalbuminuria per UACR of 41.5 last August. Home meds include 1g metformin BID. Fasting glucose 288 this morning. Fingersticks majoritively >250 since admission. Had low Mag and this was repleted and wnl today. Current daily tobacco use. Pt currently NPO while intubated - will monitor - would recommend enteral feeds initiated if NPO extends past 2 days. IBW: 73kg AjBW: 90kg Estimated energy needs: 2915kcals ([facility] 2010), 135-180g protein (1.5-2.0 g/kg AjBW) and 2915mL fluid (1 mL per required kcal) Nutrition Dx: -Inadequate intake AEB current sedation and intubation. -Class II obesity AEB current BMI >36 Intervention: -Will present to patient when extubated and able to take part in conversation around his weight/hyperglycemia -In light of hyperglycemia and current steroid and dextrose orders, would recommend 20 units of insulin glargine in addition to his current correction scale. Will monitor NPO status and recommend enteral feeding protocol if it is extended. Will monitor glucose and nutrition related labs, weight. Time Spent in Nutritional Counseling and Treatment: 0
--- NOTE | 2025-11-23 09:52 | PDOC.CMIN ---
Date of service: 11/23/25 Time of Service: 09:52 Care Management Initial Assmt Initial Assessment Reason for Hospitalization: hypoxic respiratory failure Functional Status/Living Situation Patient Presentation: Jaswant is currently in the ICU, intubated. Per report, he had a trial extubation today, but had what appeared to be a panic attack, and was intubated again and sedated. He was being repositioned in bed by nursing when CM met with his parents and son, who were in the room visiting. His mother stated that she was hoping for a miracle, that he would be extubated today and be home for [employer]. Per MD, it is not likely that he will be home for the holiday. 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 Toni, his son, stated that he is under a lot of stress at work, and is hopeful that he will take some time off after this hospitalization. His mother stated that they think Jaswant caught a respiratory illness while [employer] shopping. They anticipate that once he is medically stable, he will return home with no new services. CM will continue to follow. Town of Residence: [place] Resides with: Spouse (Girlfriend, Marilyn) Significant Other/Family: Local Natural Supports: Parents, girlfriend, son Employment Status: Employed Instrumental Activities of Daily Living (ADLs): Independent Medications Medication Management: No Issues/Barriers identified Advance Directives Advance Directives: Do you have an Advance Directive: AD On File at [facility]: N 06/19/21, 13:35 Date Asked 11/22/25 11/22/25, 07:22 AD Date Reviewed COLST On File at [facility] No 06/10/25, 18:19 COLST Date Scanned Code Status Resuscitation Status Full Code Insurance Coverage/Financial Issues Insurance: CBA Care Team Visit Care Team Role Provider Type Orlando Crockett MD MD [facility] STAFF PHYSICIAN Huong Gordon Primary Care Provider ADV PRACTICE REGISTERED NURSE Franci Cristobal RDN, [facility] Other Providers GAME AND FISH PROTECTOR Jaswant Barker RDN Other Providers GAME AND FISH PROTECTOR Bang Luke MD Emergency Provider [facility] STAFF PHYSICIAN Bang Henley Admit Provider [facility] STAFF PHYSICIAN Attending Provider Discharge Potential Discharge Needs: PCP F/U Appt Anticipated Barriers to Discharge: Medical Status Patient/Family Education Needs: Review discharge instructions, discuss Ask Me Three Transportation: Private vehicle Plan: Jaswant is currently intubated at ICU level of care. Anticipate once he is medically cleared he will return home with no new services. He will follow up with his PCP and discharge plan of care. CM will continue to follow. Social Determinants of Health Screening Will the Patient Participate in the Screening?: Unable to obtain Do you worry about having a steady place to live?: no Comments: Pt is sedated on vent for hypoxic resp failure. PFSH All Active Problems (Updated 11/22/25 @ 13:04 by Bang Henley) Multifocal pneumonia (Acute) Hypomagnesemia (Acute) Myocardial injury (Acute) Severe sepsis (Acute) Leukocytosis (Acute) Acute lactic acidosis (Acute) Acute respiratory failure (Acute) Acute bronchitis (Acute) Abscess of groin, right (Acute) Breast pain, right (Acute) Class 2 obesity without serious comorbidity with body mass index (BMI) of 37.0 to 37.9 in adult (Acute) Smoker unmotivated to quit (Acute) History of prediabetes (Acute) Gynecomastia, male (Acute) Marijuana smoker, continuous (Acute) Ankle sprain (Acute) Cellulitis of leg, right (Acute) Abrasion of leg, right, infected (Acute) Medical History (Updated 11/22/25 @ 13:04 by Bang Henley) H/O allergic reaction to aspirin/NSAIDs, [place] [facility] [place] mellitus type 2, noninsulin dependent Migraine Anxiety Intracranial aneurysm Obesity (BMI 35.0-39.9 without comorbidity) Hypertension Surgical History Tympanic membrane rupture with repair History of thyroid surgery H/O right wrist surgery History of appendectomy Brain aneurysm Coiling and clipping x 2 Social History Smoking/Tobacco Use Status: Current every day Tobacco Type: cigarettes Smoking risk assessment performed?: Yes Alcohol Intake: former Drug use: Current Sobriety Substance use type: does not use Housing: house Do you feel safe at home: Yes Do you feel safe in your relationship?: Yes
[2025-11-23] MEDS: VANCOMYCIN/WATER (PEG) 1.5 GM/300 ML BAG IVPB ×2 (10:02→21:57)
[2025-11-23] MEDS: ACETAMINOPHEN 1,000 MG/100 ML BAG 400 MG IVPB ×2 (10:21→19:25)
[2025-11-23] MEDS: PROPOFOL 1,000 MG/100 ML BTL 35.924 MG IVPB ×3 (14:21→18:39)
--- NOTE | 2025-11-23 15:33 | PHA.REVIEW2 ---
Pharmacy Admission Review Admission Clinical Review Admission Pharmacy Review: Multifocal pneumonia (Acute) Hypomagnesemia (Acute) Myocardial injury (Acute) Severe sepsis (Acute) Leukocytosis (Acute) Acute lactic acidosis (Acute) Acute respiratory failure (Acute) Class 2 obesity without serious comorbidity with body mass index (BMI) of 37.0 to 37.9 in adult (Acute) Smoker unmotivated to quit (Acute) lisinopril Allergy (Severe, Verified 11/22/25 07:18) rash ketorolac (From Toradol) Allergy (Intermediate, Verified 11/22/25 07:18) he stopped breathing tramadol Allergy (Unknown, Unverified 11/22/25 07:18) Dizziness/Lighthead Resuscitation Status Full Code Height 5 ft 10 in Weight 115.7 kg Pharmacy Admission Review Renal Dosing Renal Dosing: BUN 13 mg/dL (9-23) 11/23/25 05:30 Creatinine 0.83 mg/dL (0.73-1.18) 11/23/25 05:30 Anticoagulation Anticoagulation: Hgb 13.6 g/dL (13.5-17.5) 11/23/25 06:08 Hct 41.2 % (40.0-50.0) 11/23/25 06:08 Plt Count 196 10^3/uL (130-400) 11/23/25 06:08 Creatinine 0.83 mg/dL (0.73-1.18) 11/23/25 05:30 DVT Prophylaxis: Reviewed Relevant Labs Relevant Labs: Sodium 144 mmol/L (136-145) 11/23/25 05:30 Potassium 5.0 mmol/L (3.5-5.1) D 11/23/25 05:30 Chloride 111 mmol/L (98-107) H 11/23/25 05:30 Magnesium 2.1 mg/dL (1.6-2.6) 11/23/25 05:30 DM Control DM Control: Glucose 288 mg/dL (74-106) H 11/23/25 05:30 Finger Stick Blood Glucose 291 Finger Stick Blood Glucose 291 Finger Stick Blood Glucose 291 Cardiac Review Cardiac Review: Troponin I 41 ng/L (<54) 11/22/25 11:55
[2025-11-23] MEDS: dexmedeTOMidine IN 0.9 % NACL 400 MCG/100 ML BTL 21.772 MCG IV (16:10)
--- NOTE | 2025-11-23 16:22 | PGE_ITS ---
Date of Service Date of service: 11/23/25 Time of Service: 08:00 Assessment and Plan Assessment and plan (1) Acute respiratory failure: Status: Acute Assessment and plan: Hypoxic, intubated in ED with severe distress. Appears secondary to acute respiratory infection, though not clear infiltrate on CXR. CT confirms multifocal pneumonia Has history of respiratory allergy to ketoralac, but presentation not c/w anaphylaxis Not high risk of PE, negative d-dimer reassuring Flu/COVID/RSV negative but in season and clinically c/w influenza, should cover with oseltamivir given season and severe illness. On cefepime/vanco. MRSA PCR and sputum culture pending. Continue broad spectrum antibiotics. Added UDS to assess exposure Nov 23: UDS positive for cocaine, THC, opioids. No discussion with family as patient unable to consent. Failed sedation weaning, likely due to exhaustion. Continue mechanical ventilation and sedation. (2) Severe sepsis: Status: Acute Assessment and plan: Meets sepsis criteria with fever, WBC, RR, lactic acidosis. Received 2 liters NS in ED. BP high. With lung infection and troponins will not push to full 30ml/kg at this point. Nov 23: He remains septic, not requiring pressors. (3) Multifocal pneumonia: Status: Acute Assessment and plan: On vanco/cefempine/doxy continue steroids and nebs as smoking history and wheezing (4) Smoker unmotivated to quit: Status: Acute Assessment and plan: intubated now, NRT prn and counseling before discharge. (5) Diabetes mellitus type 2, noninsulin dependent: Assessment and plan: listed as pre-DM but has two hgb A1c levels >6.5% despite metformin. He is on steroids. Monitor FS glucose and cover with low dose sliding scale to start. Hold metformin. Nov 15: will treat as steroid hyperglycemia, daily long-acting dose with correctional (6) Class 2 obesity without serious comorbidity with body mass index (BMI) of 37.0 to 37.9 in adult: Status: Acute Assessment and plan: Noted. Has been loosing weight. 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 (7) Myocardial injury: Status: Acute Assessment and plan: troponin initially increased by 14, but back down on trend. This is consistent with mild demand ischemia. EKG reassuring. He is on aspirin but I agree anticoagulation not indicated. Get lipids with labs to assess care home risk. With DM he should be on therapy. (8) Hypomagnesemia: Status: Acute Assessment and plan: supplement IV, may help wheezing Subjective Subjective Interval history since last seen: Mr. Nice was surrounded at bedside by family this morning. He was very anxious and agitated during sedation weaning. 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 Exam Narrative Exam Narrative: General: This is an anxious man, mechanically ventilated HEENT: Normocephalic, atraumatic. ETT. CV: RRR Resp: CTAB on mechanical ventilation Abd: soft, NTND MSK: voluntary motion x4 Neuro: awake, confused, anxious Objective Last Vital Signs Temp 37.3 C 11/23/25 13:02 Pulse 83 11/23/25 16:01 Resp 28 H 11/23/25 16:01 BP 134/82 11/23/25 16:01 Pulse Ox 93 11/23/25 16:01 Laboratory Results - last 24 hr 11/22/25 11/22/25 11/22/25 10:00 18:22 20:02 WBC RBC Hgb Hct MCV MCH MCHC RDW Plt Count MPV Immature Gran % Neutrophils % Band Neutrophils % Lymphocytes % Atypical Lymphs % Monocytes % Eosinophils % Basophils % Metamyelocytes % Myelocytes % Promyelocytes % Other Cells % Nucleated RBC % Absolute Neutrophils Absolute Lymphocytes Absolute Monocytes Absolute Eosinophils Absolute Basophils RBC Morphology Polychromasia Hypochromasia Poikilocytosis Basophilic Stippling Anisocytosis Microcytosis Macrocytosis Spherocytes Tear Drop Cells Ovalocytes Stomatocytes Aranda-[place] Bodies Bittinger Cells/Echinocytes Acanthocytes (Spur) Schistocytes VBG pH 7.30 L VBG pCO2 44 VBG pO2 73 VBG HCO3 21 L VBG Total CO2 19 L VBG O2 Saturation 95 VBG Base Excess -5 L VBG Lactate 4.9 H* Sodium Potassium Chloride Carbon Dioxide Anion Gap BUN Creatinine Est GFR (CKD-EPI 2020) Glucose Calcium Magnesium Total Bilirubin AST ALT Alkaline Phosphatase Total Protein Albumin Triglycerides Total Cholesterol LDL Cholesterol, Calc HDL Cholesterol Random Vancomycin 7.7 MRSA (TEM-PCR) Negative 11/23/25 11/23/25 11/23/25 01:46 05:30 06:08 WBC Cancelled 9.99 RBC Cancelled 4.32 L Hgb Cancelled 13.6 Hct Cancelled 41.2 MCV Cancelled 95 D MCH Cancelled 31.5 MCHC Cancelled 33.0 RDW Cancelled 12.1 Plt Count Cancelled 196 MPV Cancelled 9.7 Immature Gran % Cancelled 0.4 Neutrophils % Cancelled 90.0 Band Neutrophils % Cancelled Lymphocytes % Cancelled 4.4 Atypical Lymphs % Cancelled Monocytes % Cancelled 5.1 Eosinophils % Cancelled 0.0 Basophils % Cancelled 0.1 Metamyelocytes % Cancelled Myelocytes % Cancelled Promyelocytes % Cancelled Other Cells % Cancelled Nucleated RBC % Cancelled 0.0 Absolute Neutrophils Cancelled 8.99 H Absolute Lymphocytes Cancelled 0.44 L Absolute Monocytes Cancelled 0.51 Absolute Eosinophils Cancelled 0.00 Absolute Basophils Cancelled 0.01 RBC Morphology Cancelled Polychromasia Cancelled Hypochromasia Cancelled Poikilocytosis Cancelled Basophilic Stippling Cancelled Anisocytosis Cancelled Microcytosis Cancelled Macrocytosis Cancelled Spherocytes Cancelled Tear Drop Cells Cancelled Ovalocytes Cancelled Stomatocytes Cancelled Aranda-[place] Bodies Cancelled Vivienne Cells/Echinocytes Cancelled Acanthocytes (Spur) Cancelled Schistocytes Cancelled VBG pH 7.30 L 7.32 VBG pCO2 48 48 VBG pO2 130 48 VBG HCO3 24 24 VBG Total CO2 21 L 22 L VBG O2 Saturation > 99 85 VBG Base Excess -3 L -2 VBG Lactate 3.2 H* Sodium 144 Potassium 5.0 D Chloride 111 H Carbon Dioxide 24.5 Anion Gap 8.5 BUN 13 Creatinine 0.83 Est GFR (CKD-EPI 2020) 98.43 Glucose 288 H Calcium 8.5 Magnesium 2.1 Total Bilirubin 0.4 AST 20 ALT 25 Alkaline Phosphatase 58 Total Protein 6.6 Albumin 4.1 Triglycerides 190 H Total Cholesterol 159 LDL Cholesterol, Calc 86.9 HDL Cholesterol 34 L Random Vancomycin MRSA (TEM-PCR) PAWSS Have you Been Recently Intoxicated or Drunk Within the Last 30 days?: No Have you Ever Experienced Previous Episodes of Alcohol Withdrawal?: No Have you ever Experienced Withdrawal Seizures?: No Have you ever Experienced Delirium Tremens(DT)s?: No Have you ever undergone Alcohol Rehabilitation Treatment (i.e, inpt ot outpatient treatment programs)?: No Have you ever Experienced Blackouts?: No Have you ever Combined Alcohol with other Downers within the last 90 days?: No Have you ever Combined Alcohol with any other Substance of Abuse during the last 90 days?: No Positive Blood Alcohol level on Presentation? [PCS.BAL]: No Evidence of Increased Autonomic Activity (i.e. HR>120, tremor, sweating, agitation, nausea)?: No Result: 0 VTE Prohylaxis Risk Level: Moderate/High Risk Contraindications: None Prophylaxis: Pharmacologic Time Spent with Patient Time Spent with Patient: 35-49 minutes Time was spent: preparing to see the patient(eg.review tests), obtaining and/or reviewing separately otained hiistory, ordering medications,tests, procedures, referring, communicating with other health respiratory care instructor, indepentently interpreting results, counseling the patient and care coordination
[2025-11-23 18:47] LABS: Legionella Ag Detection Urine Negative (Negative)
[2025-11-23] MEDS: dexmedeTOMidine IN 0.9 % NACL 400 MCG/100 ML BTL 27.216 MCG IV (20:12)
[2025-11-23] MEDS: Insulin Glargine 300 UNITS/3 ML PEN 15 UNITS SC (20:15)
[2025-11-23] MEDS: PROPOFOL 1,000 MG/100 ML BTL 39.19 MG IVPB (21:20)
[2025-11-23] MEDS: PROPOFOL 1,000 MG/100 ML BTL 52.254 MG IVPB (22:36)
[2025-11-23] MEDS: dexmedeTOMidine IN 0.9 % NACL 400 MCG/100 ML BTL 32.659 MCG IV (23:27)
[2025-11-23] MEDS: Furosemide 20 MG/2 ML VIAL IVP (23:44)
[2025-11-24] VITALS (80 sets, daily range): BP systolic 133–165; BP diastolic 76–106; PULSE 79–96; RESP 16–292; TEMP 36.1–39.3; O2SAT 91–98
[2025-11-24] MEDS: Insulin Aspart 300 UNITS/3 ML PEN SC ×4 (00:04→17:42)
[2025-11-24] MEDS: DEXTROSE 5%-0.45% SALINE 1,000 ML 125 ML IV ×2 (00:06→07:52)
[2025-11-24] MEDS: PROPOFOL 1,000 MG/100 ML BTL 52.254 MG IVPB ×3 (00:33→09:04)
[2025-11-24] MEDS: dexmedeTOMidine IN 0.9 % NACL 400 MCG/100 ML BTL 32.659 MCG IV (02:17)
[2025-11-24] MEDS: ACETAMINOPHEN 1,000 MG/100 ML BAG 400 MG IVPB (03:33)
[2025-11-24] MEDS: Albuterol/Ipratropium 3 ML UPD VIAL UPD ×4 (04:01→21:07)
[2025-11-24] MEDS: PROPOFOL 1,000 MG/100 ML BTL 45.722 MG IVPB ×4 (04:34→13:02)
[2025-11-24] MEDS: dexmedeTOMidine IN 0.9 % NACL 400 MCG/100 ML BTL 27.216 MCG IV (05:30)
[2025-11-24] MEDS: methylPREDNISolone SUCC 125 MG VIAL 80 MG IVP ×3 (05:59→21:11)
[2025-11-24 06:25] LABS: BE (Venous) 4 mmol/L (-2-3); HCO3 (Venous) 28 mmol/L (23-28); O2 Sat (Venous) 92 %; TCO2 (Venous) 24 mmol/L (24-29); pCO2 (Venous) 41 mmHg (41-51); pO2 (Venous) 57 mmHg
[2025-11-24 07:11] LABS: HCT 42.2 % (40.0-50.0); HGB 14.3 g/dL (13.5-17.5); MCH 31.9 pg (27.0-33.0); MCHC 33.9 % (32.0-36.0); MCV 94 fL (80-95); MPV 9.6 fL (8.0-11.0); Platelet Count 190 10^3/uL (130-400); RBC 4.48 10^6/uL (4.36-5.78); RDW 12.1 % (11.8-14.1); RDW-SD 42.2 fL; WBC 15.61 10^3/uL (4.4-10.8)
[2025-11-24] MEDS: ACETAMINOPHEN 500 MG/50 ML BAG 200 MG IVPB (07:30)
[2025-11-24 07:31] LABS: ALT 22 U/L (10-49); AST 37 U/L (<34); Albumin 3.9 g/dL (3.2-5.0); Alkaline Phosphatase 50 U/L (46-116); Anion Gap 8.5 mmol/L (3-11); BUN 18 mg/dL (9-23); Bilirubin, Total 0.4 mg/dL (0.2-1.2); CO2 27.5 mmol/L (20.0-31.0); Calcium 8.6 mg/dL (8.3-10.6); Chloride 105 mmol/L (98-107); Glucose 263 mg/dL (74-106); Potassium 4.2 mmol/L (3.5-5.1); Sodium 141 mmol/L (136-145); Total Protein 6.5 g/dL (5.7-8.2)
[2025-11-24] MEDS: DOXYCYCLINE 100 MG in Normal Saline 100 ML IVPB ×2 (07:43→20:33)
[2025-11-24] MEDS: CEFEPIME 2 GM in Normal Saline 100 ML IVPB ×3 (07:44→23:36)
[2025-11-24] MEDS: Normal Saline Flush 10 ML SYR IVP ×4 (07:45→20:39)
[2025-11-24] MEDS: Oseltamivir 75 MG CAP PO ×2 (07:45→21:15)
[2025-11-24] MEDS: Aspirin 81 MG CHEW PO (07:45)
[2025-11-24] MEDS: Enoxaparin 40 MG/0.4 ML SYR SC (07:45)
[2025-11-24] MEDS: Chlorhexidine Gluconate 0.12% Mouthwash 15 ML BTL MM ×2 (07:45→20:38)
[2025-11-24] MEDS: HYDROmorphone 2 MG/ML SYR 1 MG IVP ×3 (08:30→16:27)
[2025-11-24] MEDS: dexmedeTOMidine IN 0.9 % NACL 400 MCG/100 ML BTL 40.823 MCG IV (08:35)
[2025-11-24] MEDS: fentaNYL 1,000 MCG in Normal Saline 80 ML 9.224 MCG IV_INF (08:42)
[2025-11-24] MEDS: Pantoprazole 40 MG VIAL IVP ×2 (10:09→21:12)
[2025-11-24] MEDS: VANCOMYCIN/WATER (PEG) 1.5 GM/300 ML BAG IVPB ×2 (10:09→21:48)
--- NOTE | 2025-11-24 11:00 | DI.RAD_ITS ---
Exam(s) XR PORTABLE CHEST AP EXAM: XR PORTABLE CHEST AP CLINICAL HISTORY: intubation, fevers. TECHNIQUE: 2D digital imaging was performed. COMPARISON: CR XR PORTABLE CHEST AP POST LINE from 11/22/2025 FINDINGS: Single AP portable view. The patient remains intubated. Distal tip of the endotracheal tube is above the julianna at the clavicular level and an NG tube is again noted. Heart size is upper normal mediastinum is not widened. Persistent left lower lobe infiltrate noted. No obvious pleural effusions. IMPRESSION: Persistent left lower lobe infiltrate. DATA REPOSITORY: RADIATION DOSE DELIVERED:
[2025-11-24] MEDS: dexmedeTOMidine IN 0.9 % NACL 400 MCG/100 ML BTL 35.38 MCG IV ×2 (11:01→13:49)
--- NOTE | 2025-11-24 11:39 | DI.VRAD_ITS ---
PROCEDURE INFORMATION: Exam: XR Chest Exam date and time: 11/24/2025 11:02 AM Age: 50 years old Clinical indication: Other: Intubation, fevers TECHNIQUE: Imaging protocol: Radiologic exam of the chest. Views: 1 view. COMPARISON: CT CHEST WO 11/22/2025 11:09 AM FINDINGS: Tubes, catheters and devices: ET tube noted, tip is 6.8 cm above julianna at the level of the head of the clavicle. Nasogastric tube noted, tip is below the nasogastric junction. Lungs: No consolidation. There is left basilar atelectasis. Pleural spaces: Unremarkable. No pleural effusion. No pneumothorax. Heart/Mediastinum: Unremarkable. No cardiomegaly. Bones/joints: Unremarkable. IMPRESSION: 1. No active pulmonary disease. 2. ET tube is 6.8 cm above julianna. Dictated and Authenticated by: Zach Kwon MD. Orderin Bon Perry MD
[2025-11-24 13:48] LABS: BE 3 mmol/L (-2-3); HCO3 28 mmol/L (22-26)
[2025-11-24 13:49] LABS: FIO2 40 %
--- NOTE | 2025-11-24 15:15 | PGE_ITS ---
Date of Service Date of service: 11/24/25 Time of Service: 08:00 Assessment and Plan Assessment and plan (1) Acute respiratory failure: Status: Acute Assessment and plan: Hypoxic, intubated in ED with severe distress. Appears secondary to acute respiratory infection, though not clear infiltrate on CXR. CT confirms multifocal pneumonia Has history of respiratory allergy to ketoralac, but presentation not c/w anaphylaxis Not high risk of PE, negative d-dimer reassuring Flu/COVID/RSV negative but in season and clinically c/w influenza, should cover with oseltamivir given season and severe illness. On cefepime/vanco. MRSA PCR and sputum culture pending. Continue broad spectrum antibiotics. Added UDS to assess exposure Nov 23: UDS positive for cocaine, THC, opioids. No discussion with family as patient unable to consent. Failed sedation weaning, likely due to exhaustion. Continue mechanical ventilation and sedation. Nov 24: Concern for mucous plug with tachypnea > 40 after secretions suctioned. This resolved before [facility] discussion. Discussed sedation with [facility] rivet flunky - starting chlordiazepoxine 100 BID. Continue weaning off the ventilator. Co ntinue propofol, precedex, fentanyl. (2) Severe sepsis: Status: Acute Assessment and plan: Meets sepsis criteria with fever, WBC, RR, lactic acidosis. Received 2 liters NS in ED. BP high. With lung infection and troponins will not push to full 30ml/kg at this point. Nov 23: He remains septic, not requiring pressors. Nov 24: Holding IV fluids, continue antibiotics. (3) Multifocal pneumonia: Status: Acute Assessment and plan: On vanco/cefempine/doxy continue steroids and nebs as smoking history and wheezing (4) Smoker unmotivated to quit: Status: Acute Assessment and plan: intubated now, NRT prn and counseling before discharge. (5) Diabetes mellitus type 2, noninsulin dependent: Assessment and plan: listed as pre-DM but has two hgb A1c levels >6.5% despite metformin. He is on steroids. Monitor FS glucose and cover with low dose sliding scale to start. Hold metformin. Nov 23: will treat as steroid hyperglycemia, daily long-acting dose with correctional (6) Class 2 obesity without serious comorbidity with body mass index (BMI) of 37.0 to 37.9 in adult: Status: Acute Assessment and plan: Noted. Has been loosing weight. Good GLP-1 candidate [facility]. (7) Myocardial injury: Status: Acute Assessment and plan: troponin initially increased by 14, but back down on trend. This is consistent with mild demand ischemia. EKG reassuring. He is on aspirin but I agree anticoagulation not indicated. Get lipids with labs to assess [facility] risk. With DM he should be on therapy. (8) Hypomagnesemia: Status: Acute Assessment and plan: supplement IV, may help wheezing Subjective Subjective Interval history since last seen: Mr. Nice again failed extubation trial this morning due to agitation. Girlfriend at bedside, upset but accepting of new information Exam Narrative Exam Narrative: General: This is an anxious man, mechanically ventilated HEENT: Normocephalic, atraumatic. ETT. CV: RRR Resp: CTAB on mechanical ventilation Abd: soft, NTND MSK: voluntary motion x4 Neuro: awake, confused, anxious Objective Last Vital Signs Temp 37.0 C 11/24/25 14:35 Pulse 86 11/24/25 14:01 Resp 26 H 11/24/25 14:01 BP 133/76 11/24/25 14:01 Pulse Ox 95 11/24/25 14:01 Laboratory Results - last 24 hr 11/24/25 11/24/25 11/24/25 06:17 06:56 13:44 WBC 15.61 H RBC 4.48 Hgb 14.3 Hct 42.2 MCV 94 MCH 31.9 MCHC 33.9 RDW 12.1 Plt Count 190 MPV 9.6 ABG Sample Site Right Radial ABG pH 7.40 ABG pCO2 44 ABG pO2 72 L ABG HCO3 28 H ABG Total CO2 25 ABG O2 Saturation 95 ABG Base Excess 3 VBG pH 7.45 H VBG pCO2 41 VBG pO2 57 VBG HCO3 28 VBG Total CO2 24 VBG O2 Saturation 92 VBG Base Excess 4 H VBG Lactate 2.2 H* FiO2 40 Sodium 141 Potassium 4.2 Chloride 105 Carbon Dioxide 27.5 Anion Gap 8.5 BUN 18 Creatinine 0.87 Est GFR (CKD-EPI 2020) 93.22 Glucose 263 H Calcium 8.6 Total Bilirubin 0.4 AST 37 H ALT 22 Alkaline Phosphatase 50 Total Protein 6.5 Albumin 3.9 PAWSS Have you Been Recently Intoxicated or Drunk Within the Last 30 days?: No Have you Ever Experienced Previous Episodes of Alcohol Withdrawal?: No Have you ever Experienced Withdrawal Seizures?: No Have you ever Experienced Delirium Tremens(DT)s?: No Have you ever undergone Alcohol Rehabilitation Treatment (i.e, inpt ot outpatient treatment programs)?: No Have you ever Experienced Blackouts?: No Have you ever Combined Alcohol with other Downers within the last 90 days?: No Have you ever Combined Alcohol with any other Substance of Abuse during the last 90 days?: No Positive Blood Alcohol level on Presentation? [PCS.BAL]: No Evidence of Increased Autonomic Activity (i.e. HR>120, tremor, sweating, agitation, nausea)?: No Result: 0 VTE Prohylaxis Risk Level: Moderate/High Risk Contraindications: None Prophylaxis: Pharmacologic Time Spent with Patient Time Spent with Patient: >50 minutes Time was spent: preparing to see the patient(eg.review tests), obtaining and/or reviewing separately otained hiistory, ordering medications,tests, procedures, referring, communicating with other health foster care case manager, indepentently interpreting results, counseling the patient and care coordination
[2025-11-24] MEDS: PROPOFOL 1,000 MG/100 ML BTL 39.19 MG IVPB ×4 (15:20→22:34)
[2025-11-24] MEDS: chlordiazePOXIDE 25 MG CAP 50 MG PO ×2 (15:52→21:15)
[2025-11-24] MEDS: dexmedeTOMidine IN 0.9 % NACL 400 MCG/100 ML BTL 38.102 MCG IV ×4 (16:22→23:33)
[2025-11-24] MEDS: fentaNYL 1,000 MCG in Normal Saline 80 ML 11.53 MCG IV_INF (17:55)
[2025-11-24] MEDS: Insulin Glargine 300 UNITS/3 ML PEN 15 UNITS SC (20:32)
[2025-11-25] VITALS (56 sets, daily range): BP systolic 132–189; BP diastolic 74–116; PULSE 64–87; RESP 14–26; TEMP 36–37.7; O2SAT 87–96
[2025-11-25] MEDS: Insulin Aspart 300 UNITS/3 ML PEN SC ×4 (00:31→18:39)
[2025-11-25] MEDS: PROPOFOL 1,000 MG/100 ML BTL 29.393 MG IVPB ×3 (01:28→08:52)
[2025-11-25] MEDS: dexmedeTOMidine IN 0.9 % NACL 400 MCG/100 ML BTL 38.102 MCG IV ×4 (02:10→09:20)
[2025-11-25] MEDS: fentaNYL 1,000 MCG in Normal Saline 80 ML 8.648 MCG IV_INF (02:50)
[2025-11-25] MEDS: Albuterol/Ipratropium 3 ML UPD VIAL UPD ×4 (04:49→22:20)
[2025-11-25] MEDS: chlordiazePOXIDE 25 MG CAP 50 MG PO ×4 (04:53→23:10)
[2025-11-25 05:24] LABS: BE (Venous) 7 mmol/L (-2-3); HCO3 (Venous) 31 mmol/L (23-28); O2 Sat (Venous) 88 %; TCO2 (Venous) 27 mmol/L (24-29); pCO2 (Venous) 49 mmHg (41-51); pO2 (Venous) 55 mmHg
[2025-11-25 05:25] LABS: Abs Immature Grans 0.05 10^3/uL (0.0-0.06); HCT 43.0 % (40.0-50.0); HGB 14.6 g/dL (13.5-17.5); Immature Grans % 0.3 %; MCH 31.8 pg (27.0-33.0); MCHC 34.0 % (32.0-36.0); MCV 94 fL (80-95); MPV 9.4 fL (8.0-11.0); Platelet Count 175 10^3/uL (130-400); RBC 4.59 10^6/uL (4.36-5.78); RDW 11.9 % (11.8-14.1); RDW-SD 40.8 fL; WBC 14.98 10^3/uL (4.4-10.8)
[2025-11-25 05:47] LABS: Magnesium 2.1 mg/dL (1.6-2.6)
[2025-11-25 05:49] LABS: ALT 21 U/L (10-49); AST 34 U/L (<34); Albumin 4.0 g/dL (3.2-5.0); Alkaline Phosphatase 49 U/L (46-116); Anion Gap 7.9 mmol/L (3-11); BUN 20 mg/dL (9-23); Bilirubin, Total 0.5 mg/dL (0.2-1.2); CO2 30.1 mmol/L (20.0-31.0); Calcium 8.7 mg/dL (8.3-10.6); Chloride 103 mmol/L (98-107); Glucose 244 mg/dL (74-106); Potassium 4.5 mmol/L (3.5-5.1); Sodium 141 mmol/L (136-145); Total Protein 6.7 g/dL (5.7-8.2)
[2025-11-25] MEDS: methylPREDNISolone SUCC 125 MG VIAL 80 MG IVP ×2 (05:54→14:22)
[2025-11-25] MEDS: DOXYCYCLINE 100 MG in Normal Saline 100 ML IVPB ×2 (07:32→20:06)
[2025-11-25] MEDS: Albuterol 2.5 MG/3 ML INH SOLN VIAL UPD (07:46)
[2025-11-25] MEDS: Aspirin 81 MG CHEW PO (07:46)
[2025-11-25] MEDS: Oseltamivir 75 MG CAP PO ×2 (07:46→20:09)
[2025-11-25] MEDS: Enoxaparin 40 MG/0.4 ML SYR SC (07:56)
[2025-11-25] MEDS: Chlorhexidine Gluconate 0.12% Mouthwash 15 ML BTL MM (07:57)
[2025-11-25] MEDS: Normal Saline Flush 10 ML SYR IVP ×3 (07:58→20:08)
--- NOTE | 2025-11-25 08:20 | PDOC.CMPRO ---
Date of service: 11/25/25 Time of Service: 08:20 Care Management Progress Note Progress Note Text Progress Note Text: Patient presented with severe respiratory distress and hypoxia and required intubation in the ED. The patient continues to fail extubation trials due to significant agitation. The patient remains intubated and ventilator weaning will continue as tolerated. Sedation is being maintained with poropofol, Precedex and Fentanyl. Plan of care is ongoing and is being discussed with [facility]. Discharge Potential Discharge Needs: PCP F/U Appt Anticipated Barriers to Discharge: Medical Status Patient/Family Education Needs: Review discharge instructions, discuss Ask Me Three Transportation: Private vehicle Plan: Jaswant is currently intubated at ICU level of care. Anticipate once he is medically cleared he will return home with no new services. He will follow up with his PCP and discharge plan of care. CM will continue to follow. Social Determinants of Health Screening Will the Patient Participate in the Screening?: Unable to obtain Do you worry about having a steady place to live?: no Comments: Pt is sedated on vent for hypoxic resp failure.
[2025-11-25] MEDS: CEFEPIME 2 GM in Normal Saline 100 ML IVPB ×3 (08:40→23:54)
[2025-11-25] MEDS: Pantoprazole 40 MG VIAL IVP ×2 (09:36→21:35)
[2025-11-25] MEDS: VANCOMYCIN/WATER (PEG) 1.5 GM/300 ML BAG IVPB (09:50)
--- NOTE | 2025-11-25 11:35 | DI.CT_ITS ---
Exam(s) CT HEAD - STROKE PROTOCOL EXAM: CT HEAD - STROKE PROTOCOL CLINICAL HISTORY: r/o cva. TECHNIQUE: Imaging Protocol: Axial computed tomography images with coronal and sagittal reformatted images were created and reviewed COMPARISON: CT CT BRAIN NECK CTA from 06/10/2025 CR,XR XR PORTABLE CHEST AP from 11/24/2025 FINDINGS: There are no skull fractures. There is mucosal thickening in left maxillary sinus without fluid level. Mild mucosal thickening in the ethmoidal air cells. Sphenoid and frontal sinuses are clear and there are no mastoid effusions evident. No evidence of intracranial hemorrhage. However, there is abnormal hypodensity in the right caudate nucleus noted consistent with infarct at this level. This appears to been probably present on CT scanning of May 2025. There is a stent in the right vertebral artery at the skull base again noted. There is also coil material evident in the region of the anterior communicating artery No areas of hemorrhage nor obvious [place] infarct. IMPRESSION: No acute intracranial findings on this noninfused CT scan of the brain. 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 Also stent in the right vertebral artery at the skull base. Recommend follow-up CT angiography. Images reviewed at my with hospitalist following completion of this study 11/25/2025 RADIATION DOSE DELIVERED: 936.73mGy.cm Total DLP DATA REPOSITORY: All CT scans at this facility are submitted to the National Radiology Data Registry (NRDR) Dose Index Registry (DIR) with the [employer] (ACR). RADIATION OPTIMIZATION: All CT scans at this facility use at least one of these dose optimization techniques: automated exposure control; mA and/or kV adjustment per patient size (includes targeted exams where dose is matched to clinical indication); or iterative reconstruction.
--- NOTE | 2025-11-25 11:45 | DI.CT_ITS ---
Exam(s) CT BRAIN NECK CTA EXAM: CT BRAIN NECK CTA CLINICAL HISTORY: r/o cva. TECHNIQUE: Imaging Protocol: Axial CT angiography was performed with multi- slice acquisition and multi-planar and/or 3D reconstructions. CONTRAST MATERIAL: Intravenous: Omnipaque 350 Contrast volume:structured data in ml COMPARISON: CT CT BRAIN NECK CTA from 06/10/2025 CR,XR XR PORTABLE CHEST AP from 11/24/[address] HEAD - STROKE PROTOCOL from 11/25/2025 FINDINGS: CTA Neck W: There are bilateral lung infiltrates noted in both upper lobes Aortic arch anatomy: The aortic arch anatomy is conventional and there is no significant stenosis at the origin of the great vessels off of the aortic arch. No intimal flap evident. Anterior circulation: Both common carotid arteries ascend with normal luminal diameters. At the level the carotid bulbs and proximal internal carotid arteries there is minimal plaque without hemodynamically significant stenosis evident on either side. Posterior circulation: Both vertebral arteries originate in conventional fashion off of the subclavian arteries and there is no obvious stenosis at the origin of the vertebral arteries. Both vertebral arteries exhibit normal luminal diameters within the foramen transversarium. At the skull base there is an endovascular stent in the distal right vertebral artery. This appears to be patent. Both vertebral arteries contribute to the formation of the basilar artery at the skull base. CTA Brain W: Anterior circulation: Both internal carotid arteries are patent in the skull base-carotid canals as well as within the cavernous sinuses. The supraclinoid aspects of the ICAs are patent. There is Coral material at the level the anterior communicating artery. Right A1 segment appears patent. Left A1 segment is atretic and there appears to be a clip around the left A1 segment. Both middle cerebral arteries appear patent. Posterior circulation: The basilar artery ascends in the midline. Distally it gives off patent bilateral superior cerebellar arteries. The right posterior cerebral artery comes off of the distal basilar artery and appears patent. The left posterior cerebral artery is fed both by the distal basilar artery and what appears to be a posterior communicating artery. There is no evidence of aneurysm at the tip of the basilar artery nor elsewhere in the [id number]. CT BRAIN: There is no evidence of intracranial hemorrhage, mass effect, or shift of midline structures. There are no extra-axial fluid collections. Ventricles are not enlarged or shifted. There are no ring enhancing lesions in the brain and no abnormal meningeal enhancement. Area of infarct in the right caudate nucleus is noted.. IMPRESSION: 1. Patent carotid arteries in the neck. No hemodynamically significant stenosis. 2. Patent vertebral arteries. There is a stent in the upper right vertebral artery at the skull base which appears patent 3. Coil material in the region of the anterior communicating artery. No obvious occlusion of intracranial vessels. 4. No intracranial hemorrhage. No vascular malformations. There is abnormal hypodensity consistent with infarct in the right caudate nucleus. This, however, was evident on CT scan of 06/10/2025. Discussed with hospitalist physician 11/25/2025 at 12:30 p.m. RADIATION DOSE DELIVERED: 1,590.3mGy.cm Total DLP DATA REPOSITORY: All CT scans at this facility are submitted to the National Radiology Data Registry (NRDR) Dose Index Registry (DIR) with the [employer] (ACR). RADIATION OPTIMIZATION: All CT scans at this facility use at least one of these dose optimization techniques: automated exposure control; mA and/or kV adjustment per patient size (includes targeted exams where dose is matched to clinical indication); or iterative reconstruction.
[2025-11-25] MEDS: Omnipaque 350 MG/ML 500 ML BTL-Imaging package IJ (11:54)
[2025-11-25] MEDS: Normal Saline - Diluent 50 ML VIAL IJ (11:54)
--- NOTE | 2025-11-25 12:13 | CRITCAR_ITS ---
[facility] All Active Problems (Updated 11/22/25 @ 13:04 by Bang Henley) Multifocal pneumonia (Acute) Hypomagnesemia (Acute) Myocardial injury (Acute) Severe sepsis (Acute) Leukocytosis (Acute) Acute lactic acidosis (Acute) Acute respiratory failure (Acute) Acute bronchitis (Acute) Abscess of groin, right (Acute) Breast pain, right (Acute) Class 2 obesity without serious comorbidity with body mass index (BMI) of 37.0 to 37.9 in adult (Acute) Smoker unmotivated to quit (Acute) History of prediabetes (Acute) Gynecomastia, male (Acute) Marijuana smoker, continuous (Acute) Ankle sprain (Acute) Cellulitis of leg, right (Acute) Abrasion of leg, right, infected (Acute) Medical History (Updated 11/22/25 @ 13:04 by Bang Henley) H/O allergic reaction to aspirin/NSAIDs, [place] [facility] [place] mellitus type 2, noninsulin dependent Migraine Anxiety Intracranial aneurysm Obesity (BMI 35.0-39.9 without comorbidity) Hypertension Surgical History Tympanic membrane rupture with repair History of thyroid surgery H/O right wrist surgery History of appendectomy Brain aneurysm Coiling and clipping x 2 Social History Smoking/Tobacco Use Status: Current every day Tobacco Type: cigarettes Smoking risk assessment performed?: Yes Alcohol Intake: former Drug use: Current Sobriety Substance use type: does not use Housing: house Do you feel safe at home: Yes Do you feel safe in your relationship?: Yes Visit Medication and Allergies Active Medications Generic Name Dose Route Start Last Admin Trade Name Freq PRN Reason Stop Dose Admin Albuterol Sulfate 2.5 mg 11/22/25 10:45 11/25/25 07:46 Albuterol 2.5 Mg/3 Ml Inh Soln Vial UPD 2.5 mg Q4H PRN PRN Administration Albuterol/Ipratropium 3 ml 11/22/25 16:00 11/25/25 09:31 Albuterol/Ipratropium 3 Ml Upd Vial UPD 3 ml Q6H JOHNSON Administration Aspirin 81 mg 11/23/25 08:30 11/25/25 07:46 Aspirin 81 Mg Chew PO 81 mg DAILY JOHNSON Administration Chlordiazepoxide HCl 50 mg 11/24/25 16:00 11/25/25 10:34 Chlordiazepoxide 25 Mg Cap PO 50 mg Q6H JOHNSON Administration Chlorhexidine Gluconate 0 ml 11/22/25 20:00 11/25/25 07:57 Chlorhexidine Gluconate 0.12% Mouthwash 15 Ml Btl MM 15 ml BID JOHNSON Administration Dextrose 0 gm 11/22/25 09:48 Glucose Oral Gel 15 Gm/37.5 Gm Tube PO DIRECTED PRN Dextrose/Water 0 gm 11/22/25 09:48 Dextrose 50%-Water 25 Gm/50 Ml Syr IVP DIRECTED PRN Enoxaparin Sodium 40 mg 11/23/25 08:30 11/25/25 07:56 Enoxaparin 40 Mg/0.4 Ml Syr SC 40 mg DAILY JOHNSON Administration Hydromorphone HCl 1 mg 11/22/25 14:09 11/24/25 16:27 Hydromorphone 2 Mg/Ml Syr IVP 1 mg Q2H PRN PRN Administration Propofol 1,000 mg in 100 mls @ 3.266 mls/hr 11/22/25 08:00 11/25/25 08:57 Diprivan IVPB 0 mcg/kg/min INFUSION JOHNSON 0 mls/hr Protocol Titration 5 MCG/KG/MIN Dexmedetomidine/Sodium Chloride 400 mcg in 100 mls @ 10.886 mls/hr 11/22/25 09:15 11/25/25 09:28 Precedex IV 0.7 mcg/kg/hr INFUSION JOHNSON 19.051 mls/hr Protocol Titration 0.4 MCG/KG/HR Cefepime HCl 2 gm/ Sodium 100 mls @ 200 mls/hr 11/22/25 16:00 11/25/25 09:31 Chloride IVPB Infused Q8H JOHNSON Infusion Doxycycline Hyclate 100 mg/ 100 mls @ 100 mls/hr 11/22/25 20:00 11/25/25 08:44 Sodium Chloride IVPB Infused Q12H JOHNSON Infusion Vancomycin/PEG/NADA/Lysine/Water 1.5 gm in 300 mls @ 200 mls/hr 11/22/25 22:00 11/25/25 09:50 Vancocin Injection IVPB 200 mls/hr Q12H JOHNSON Administration Fentanyl 1,000 mcg/ Sodium 100 mls @ 5.765 mls/hr 11/22/25 16:00 11/25/25 09:15 Chloride IV_INF 0.5 mcg/kg/hr INFUSION JOHNSON 5.765 mls/hr Protocol Titration 0.5 MCG/KG/HR Acetaminophen 1,000 mg in 100 mls @ 400 mls/hr 11/23/25 01:00 11/24/25 03:50 Ofirmev IVPB Infused Q6H PRN PRN Infusion Insulin Aspart 0 units 11/23/25 00:00 11/25/25 05:46 Insulin Aspart 300 Units/3 Ml Pen SC 6 units Q6H JOHNSON Administration Protocol Insulin Glargine 15 units 11/23/25 20:00 11/24/25 20:32 Insulin Glargine 300 Units/3 Ml Pen SC 15 units HS JOHNSON Administration Iohexol 500 ml 11/25/25 12:00 11/25/25 11:54 Omnipaque 350 Mg/Ml 500 Ml Btl-Imaging Package IJ 11/25/25 13:00 70 ml DIRECTED JOHNSON Administration Methylprednisolone Sodium Succinate 80 mg 11/22/25 14:00 11/25/25 05:54 Methylprednisolone Succ 125 Mg Vial IVP 80 mg Q8H JOHNSON Administration Oseltamivir Phosphate 75 mg 11/22/25 20:00 11/25/25 07:46 Oseltamivir 75 Mg Cap PO 75 mg BID JOHNSON Administration Pantoprazole Sodium 40 mg 11/24/25 10:00 11/25/25 09:36 Pantoprazole 40 Mg Vial IVP 40 mg Q12H JOHNSON Administration Polyethylene Glycol 17 gm 11/22/25 09:43 Polyethylene Glycol 3350 17 Gm Packet PO DAILY PRN PRN Constipation Sodium Chloride 0 ml 11/22/25 07:15 11/24/25 16:27 Normal Saline Flush 10 Ml Syr IVP 40 ml PRN PRN Administration Sodium Chloride 0 ml 11/22/25 08:30 11/25/25 07:58 Normal Saline Flush 10 Ml Syr IVP 10 ml BID JOHNSON Administration Sodium Chloride 0 ml 11/25/25 11:50 Normal Saline Flush 10 Ml Syr IVP 11/25/25 13:00 PRN PRN Sodium Chloride 50 ml 11/25/25 12:00 11/25/25 11:54 Normal Saline - Diluent 50 Ml Vial IJ 11/25/25 13:00 50 ml DIRECTED JOHNSON Administration Allergies lisinopril Allergy (Severe, Verified 11/22/25 07:18) rash ketorolac (From Toradol) Allergy (Intermediate, Verified 11/22/25 07:18) he stopped breathing tramadol Allergy (Unknown, Unverified 11/22/25 07:18) Dizziness/Lighthead Results Last Vital Signs Temp 37.7 C H 11/25/25 09:09 Pulse 79 11/25/25 09:43 Resp 20 11/25/25 09:43 BP 147/89 H 11/25/25 09:01 Pulse Ox 87 L 11/25/25 09:54 Labs 11/25/25 05:17 11/25/25 05:17 Labs: Laboratory Results - last 24 hr 11/24/25 11/25/25 13:44 05:17 WBC 14.98 H RBC 4.59 Hgb 14.6 Hct 43.0 MCV 94 MCH 31.8 MCHC 34.0 RDW 11.9 Plt Count 175 MPV 9.4 Immature Gran % 0.3 Neutrophils % 83.6 Lymphocytes % 9.9 Monocytes % 6.1 Eosinophils % 0.0 Basophils % 0.1 Nucleated RBC % 0.0 Absolute Neutrophils 12.52 H Absolute Lymphocytes 1.48 Absolute Monocytes 0.91 H Absolute Eosinophils 0.00 Absolute Basophils 0.01 ABG Sample Site Right Radial ABG pH 7.40 ABG pCO2 44 ABG pO2 72 L ABG HCO3 28 H ABG Total CO2 25 ABG O2 Saturation 95 ABG Base Excess 3 VBG pH 7.41 VBG pCO2 49 VBG pO2 55 VBG HCO3 31 H VBG Total CO2 27 VBG O2 Saturation 88 VBG Base Excess 7 H FiO2 40 Sodium 141 Potassium 4.5 Chloride 103 Carbon Dioxide 30.1 Anion Gap 7.9 BUN 20 Creatinine 0.74 Est GFR (CKD-EPI 2020) 112.36 Glucose 244 H Calcium 8.7 Phosphorus 3.8 Magnesium 2.1 Total Bilirubin 0.5 AST 34 ALT 21 Alkaline Phosphatase 49 Total Protein 6.7 Albumin 4.0
--- NOTE | 2025-11-25 12:13 | W.PM.PROGNOT ---
Date of Service Date of service: 11/25/25 Time of Service: 08:00 Assessment and Plan Assessment and plan (1) Acute CVA (cerebrovascular accident): Status: Acute Assessment and plan: Likely TIA with symptoms resolving. Right-side deficits: facial droop, loss of voluntary motion in right arm and hand. Cognitive deficits: speech slower, more slurred, more word-finding difficulty CT head and CTA head/neck without acute findings. 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 R vertebral artery stent is patent and A1 clip/coil is without hemorrhage, MCAs patent. MRI without evidence of acute infarct. Nonspecific hypointensities seen Differential considerations include old cerebral microbleeds, trauma/diffuse axonal injury, vascular malformations, cerebral amyloid angiopathy or microbleeds related to old strokes Echocardiogram Friday. PT evaluation. Substantial risk of life-threatening brain injury. Greater than 45 minutes of critical care spent on physical exam and assessment, ordering diagnostic tests, reviewing results, coordinating care. (2) Acute respiratory failure: Status: Acute Assessment and plan: Chief complaint: shortness of breath Intubated in ED after failed NRB and NIV. Extubation failed Nov 23 due to agitation. Failed Nov 24 due to tachypnea RR > 40. Nov 24 concern for mucous plug, [facility] critical care consulted. Meanwhile tachypnea resolved. [facility] CC advised starting withdrawal care with chlordiazepoxide. Nov 25 extubated without difficulty. Now on NC4-5L. CT imaging showing GGOs in BUL. (3) Severe sepsis: Status: Resolved Assessment and plan: Septic on admission requiring ICU stay for respiratory failure Appropriate emergent care including antibiotics, fluids Did not require pressors. Resolved. (4) Multifocal pneumonia: Status: Acute Assessment and plan: LL consolidation on chest imaging on arrival Nov 25 CVA workup imaging showing BUL infiltrates / GGOs Clinical improvement on antibiotics and steroids Continue vancomycin, cefepime, doxycyline, complete oseltamivir course Reduce methylprednisolone from 80 q8 to 40 mg IV q8H Continue nebs (5) Smoker unmotivated to quit: Status: Acute Assessment and plan: Started PRN nicotine patch Cessation counseling daily (6) Diabetes mellitus type 2, noninsulin dependent: Assessment and plan: Home regimen metformin, A1C 6.7 in August Steroid hyperglycemia, on insulin while hospitalized Increasing nightly basal from 15u to 25u, adjust daily with steroid reduction (7) Class 2 obesity without serious comorbidity with body mass index (BMI) of 37.0 to 37.9 in adult: Status: Acute Assessment and plan: Noted. Has been loosing weight. Good GLP-1 candidate half-way. (8) Myocardial injury: Status: Acute Assessment and plan: troponin initially increased by 14, but back down on trend. This is consistent with mild demand ischemia. EKG reassuring. He is on aspirin but I agree anticoagulation not indicated. Lipid panel with elevated triglycerides 190, low HDL, will start statin (9) Hypomagnesemia: Status: Acute Assessment and plan: Replete and recheck Subjective Subjective Interval history since last seen: Mr. Nice was extubated successfully this morning. Around 09:30 he abruptly lost the ability to lift his right arm. 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 At this time his speech was more slurred but his cognition and responsiveness did not worsen. He had stat stroke workup with CT head, CTA head/neck and [facility] Teleneurology consult. All symptoms are improving after workup. As of 16:00 he is able to lift his arm. He is in good spirits, tired. Many family members present today. Exam Narrative Exam Narrative: General: This is a pleasant man in bed, fatigued HEENT: Normocephalic, atraumatic. CV: RRR Resp: Coarse breath sounds in all jacobson, good movement of air on NC3L Abd: soft, NTND MSK: voluntary motion x4 Neuro: A&Ox4. Some slower speech and word-finding difficulties intermittently. Right facial droop resolved. Right arm sensation improving, able to tell hand from forearm. Right arm strength improving, elementary school art teacher back to 5/5, able to raise arm off the bed from the shoulder. BLE strength back to 5/5. Objective Last Vital Signs Temp 37.7 C H 11/25/25 09:09 Pulse 79 11/25/25 09:43 Resp 20 11/25/25 09:43 BP 147/89 H 11/25/25 09:01 Pulse Ox 87 L 11/25/25 09:54 Laboratory Results - last 24 hr 11/24/25 11/25/25 13:44 05:17 WBC 14.98 H RBC 4.59 Hgb 14.6 Hct 43.0 MCV 94 MCH 31.8 MCHC 34.0 RDW 11.9 Plt Count 175 MPV 9.4 Immature Gran % 0.3 Neutrophils % 83.6 Lymphocytes % 9.9 Monocytes % 6.1 Eosinophils % 0.0 Basophils % 0.1 Nucleated RBC % 0.0 Absolute Neutrophils 12.52 H Absolute Lymphocytes 1.48 Absolute Monocytes 0.91 H Absolute Eosinophils 0.00 Absolute Basophils 0.01 ABG Sample Site Right Radial ABG pH 7.40 ABG pCO2 44 ABG pO2 72 L ABG HCO3 28 H ABG Total CO2 25 ABG O2 Saturation 95 ABG Base Excess 3 VBG pH 7.41 VBG pCO2 49 VBG pO2 55 VBG HCO3 31 H VBG Total CO2 27 VBG O2 Saturation 88 VBG Base Excess 7 H FiO2 40 Sodium 141 Potassium 4.5 Chloride 103 Carbon Dioxide 30.1 Anion Gap 7.9 BUN 20 Creatinine 0.74 Est GFR (CKD-EPI 2020) 112.36 Glucose 244 H Calcium 8.7 Phosphorus 3.8 Magnesium 2.1 Total Bilirubin 0.5 AST 34 ALT 21 Alkaline Phosphatase 49 Total Protein 6.7 Albumin 4.0 PAWSS Have you Been Recently Intoxicated or Drunk Within the Last 30 days?: No Have you Ever Experienced Previous Episodes of Alcohol Withdrawal?: No Have you ever Experienced Withdrawal Seizures?: No Have you ever Experienced Delirium Tremens(DT)s?: No Have you ever undergone Alcohol Rehabilitation Treatment (i.e, inpt ot outpatient treatment programs)?: No Have you ever Experienced Blackouts?: No Have you ever Combined Alcohol with other Downers within the last 90 days?: No Have you ever Combined Alcohol with any other Substance of Abuse during the last 90 days?: No Positive Blood Alcohol level on Presentation? [PCS.BAL]: No Evidence of Increased Autonomic Activity (i.e. HR>120, tremor, sweating, agitation, nausea)?: No Result: 0 VTE Prohylaxis Risk Level: Moderate/High Risk Contraindications: None Prophylaxis: Pharmacologic Time Spent with Patient Time Spent with Patient: >50 minutes Time was spent: preparing to see the patient(eg.review tests), obtaining and/or reviewing separately otained hiistory, ordering medications,tests, procedures, referring, communicating with other health health care recruiter, indepentently interpreting results, counseling the patient and care coordination
--- NOTE | 2025-11-25 12:45 | RT.EKG_ITS ---
APPROVED REPORT Exam: Resting ECG Reason for Exam: Pt reports chest pain Patient Location: I HR:71 bpm ECG Measurements Heart Rate 71 AXIS ID 146 P 85 QRSd 80 QRS 64 QT 377 T 19 QTc 410 Conclusion Sinus rhythm...normal P axis, V-rate 50- 99 Consider left ventricular hypertrophy...(S V1/V2+R V5/V6) >3.50mV
--- NOTE | 2025-11-25 13:45 | DI.MRI_ITS ---
Exam(s) MR BRAIN WO EXAM: MR BRAIN WO CLINICAL HISTORY: post CTA follow up r/o CVA TECHNIQUE: Multiplanar multisequence MRI of the brain was performed. COMPARISON: CT CT BRAIN NECK CTA from 11/25/[address] HEAD - STROKE PROTOCOL from 11/25/2025 FINDINGS: The examination is limited due to patient motion artifact. VENTRICLES AND EXTRA AXIAL SPACES: Normal in size and morphology for the patient's age. MIDLINE SHIFT: None. CEREBRAL PARENCHYMA: No focus of restricted diffusion to suggest acute infarct. No space-occupying lesion identified. HEMORRHAGE: There are few hypointense round spots on the gradient images. The largest is at the left frontal parietal junction. BRAINSTEM/CEREBELLUM: Normal. CALVARIUM: Normal. VISUALIZED PARANASAL SINUSES/MASTOIDS:There is mild mucosal thickening in the left maxillary sinus. The remaining visualized paranasal sinuses are clear. The mastoid air cells are well pneumatized. [place]: Normal flow void. There is artifact from a stent in the distal right vertebral artery. PITUITARY GLAND: Unremarkable. OTHER FINDINGS: None. IMPRESSION: 1. There is no evidence of an acute infarct. 2. Several hypointense round spot seen on the gradient images. Differential considerations include old cerebral microbleeds, trauma/diffuse axonal injury, vascular malformations, cerebral amyloid angiopathy or microbleeds related to old strokes. DATA REPOSITORY:
[2025-11-25] MEDS: Losartan 25 MG TAB PO (14:41)
[2025-11-25] MEDS: diazePAM 10 MG/2 ML SYR 5 MG IVP (14:41)
[2025-11-25] MEDS: Insulin Glargine 300 UNITS/3 ML PEN 25 UNITS SC (20:07)
[2025-11-25] MEDS: Atorvastatin 40 MG TAB 80 MG PO (20:09)
[2025-11-25 20:31] LABS: Vancomycin, Trough 6.9 ug/mL (5.0-10.0)
[2025-11-25] MEDS: VANCOMYCIN/WATER (PEG) 1.75 GM/350 ML BAG IVPB (21:35)
[2025-11-25] MEDS: methylPREDNISolone SUCC 40 MG VIAL IVP (21:36)
[2025-11-26] VITALS (50 sets, daily range): BP systolic 141–174; BP diastolic 81–126; PULSE 70–100; RESP 14–29; TEMP 36.8–37.2; O2SAT 90–97
[2025-11-26] MEDS: Insulin Aspart 300 UNITS/3 ML PEN SC ×6 (00:19→23:03)
[2025-11-26] MEDS: diazePAM 2 MG TAB PO ×2 (00:20→04:17)
[2025-11-26] MEDS: guaiFENesin/D-METHORPHAN HB 5 ML CUP PO (02:57)
[2025-11-26] MEDS: Albuterol/Ipratropium 3 ML UPD VIAL UPD ×3 (04:03→16:37)
[2025-11-26] MEDS: chlordiazePOXIDE 25 MG CAP 50 MG PO (04:45)
[2025-11-26 05:36] LABS: BE (Venous) 4 mmol/L (-2-3); HCO3 (Venous) 28 mmol/L (23-28); O2 Sat (Venous) 99 %; TCO2 (Venous) 24 mmol/L (24-29); pCO2 (Venous) 37 mmHg (41-51); pO2 (Venous) 104 mmHg
[2025-11-26 05:39] LABS: Abs Immature Grans 0.13 10^3/uL (0.0-0.06); HCT 42.5 % (40.0-50.0); HGB 14.4 g/dL (13.5-17.5); Immature Grans % 0.7 %; MCH 31.2 pg (27.0-33.0); MCHC 33.9 % (32.0-36.0); MCV 92 fL (80-95); MPV 9.7 fL (8.0-11.0); Platelet Count 213 10^3/uL (130-400); RBC 4.61 10^6/uL (4.36-5.78); RDW 11.9 % (11.8-14.1); RDW-SD 40.8 fL; WBC 18.58 10^3/uL (4.4-10.8)
[2025-11-26] MEDS: methylPREDNISolone SUCC 40 MG VIAL IVP ×2 (05:46→14:11)
[2025-11-26 06:02] LABS: Magnesium 2.1 mg/dL (1.6-2.6)
[2025-11-26 06:03] LABS: ALT 22 U/L (10-49); AST 32 U/L (<34); Albumin 3.9 g/dL (3.2-5.0); Alkaline Phosphatase 50 U/L (46-116); Anion Gap 9 mmol/L (3-11); BUN 28 mg/dL (9-23); Bilirubin, Total 1.1 mg/dL (0.2-1.2); CO2 27.0 mmol/L (20.0-31.0); Calcium 9.1 mg/dL (8.3-10.6); Chloride 105 mmol/L (98-107); Glucose 229 mg/dL (74-106); Potassium 3.5 mmol/L (3.5-5.1); Sodium 141 mmol/L (136-145); Total Protein 6.6 g/dL (5.7-8.2)
[2025-11-26] MEDS: Aspirin 81 MG CHEW PO (08:18)
[2025-11-26] MEDS: Oseltamivir 75 MG CAP PO ×2 (08:18→18:46)
[2025-11-26] MEDS: Enoxaparin 40 MG/0.4 ML SYR SC (08:18)
[2025-11-26] MEDS: Normal Saline Flush 10 ML SYR IVP ×4 (08:19→20:20)
[2025-11-26] MEDS: DOXYCYCLINE 100 MG in Normal Saline 100 ML IVPB ×2 (08:21→20:19)
--- NOTE | 2025-11-26 10:42 | PT.INIE ---
PT Notes Visit Reasons: Hypoxic Respiratory Failure Inpatient Physical Therapy Evaluation Date: 11/26/25 Referring Doctor: Orlando Crockett PT Orders: PT CONSULT: Safety Consult for D/C Precautions: Fall precautions Patient Profile/Admitting Diagnosis: Pt present to the ED on 11/22/25 with a one day history of fever, cough and SOB. Pt was intubated in the ED and admitted to ICU. Pt was extubated on 11/25/2025. Patient developed right sided deficits including facial droop and loss of control of right hand which later resolved. PT was ordered for safety consult for discharge. PMHX: See below Social History/Home Situation: Lives with his girlfriend and her two children. Equipment Owned/DME: None Subjective: Patient's girlfriend was present for PT evaluation. Patient was aware of how many days he has been in the hospital. Objective: General Observation: Patient had some difficulty following instructions for strength testing Mental Status: Alert and oriented Pain: c/o right foot pain Vital Signs: Monitored by nursing ROM: (B) Upper Extremities: grossly WFL (B) Lower Extremities: grossly WFL Strength: Right Upper Extremity: Grossly 3/5 Left Upper Extremity: Grossly 3/5 Right Lower Extremity: Grossly 3+/5 Left Lower Extremity: Grossly 3+/5 Bed Mobility/Transfers: Supine to sit: Pt was able to transfer supine to sit with Mod (A) of 2 for his trunk and min (A) for his LEs Stand to stand Transfer: Able to perform sit to stand transfer with contact-guard assist of 2 Pivot Transfer: Able to take steps using a front wheeled rolling walker and min to mod (A) of 1 with stand by/CGA of a 2nd person Balance: Static Sitting: Pt was able to maintain static sitting with CG of 1 Dynamic Sitting: Pt Static Standing: Pt was able to maintain static standing balance with FFW for (B) UE support and CG of 2 Dynamic Standing: Pt was able to maintain dynamic standing balance with FFW for (B) UE support and min A of 1 and stand by of a 2nd person Special Tests: Mobility Limitations Standardized Measure [facility] AM-PAC 6 clicks Basic Mobility Inpatient Short Form: Raw Score: 13 Standardized Score: 36.74 CMS Score: 64.91 Informed Consent/Education: Patient instructed in purpose of PT consult and plan of care. Assessment: Patient is a 50 year old male referred to physical therapy services with the diagnosis of acute respiratory failure. Patient presents with the following impairment level findings: Deconditioning, impaired mobility, impaired balance, decreased strength, and impaired gait. Impairments are contributing to the following functional limitations: AMPAC score. Pt may benefit from OT evaluation. Patient is assessed as a [] Low 91504 [x] Moderate 43427 [] High 93595 complexity based on the following: History: See below Examination: See above Presentation: Evolving Decision Making: Moderate Goals: Goals X1 week 1. Supine-Sit with supervision 2. Sit-Supine with supervision 3. Sit-Stand with supervision 4. Stand-Sit with supervision 5. Bed-Chair with supervision 6. Chair-Bed with supervision: 7. Gait Patient will be able to ambulate 75 to 150 feet with front wheeled rolling walker and contact-guard assist 8. Stairs: patient will be able to ascend/descend 3 steps with contact-guard assist 9. Independent with home exercise program 10. Balance: Pt will be able to maintain static and dynamic standing balance with upper extremity support and supervision to contact-guard assist Plan of Care/Treatment Plan: 1-2x/day, 7 days/week x 1 week. Plan of care has been reviewed with the HEEL COVER SOFTENER providing the service under Physical Therapy direction. Initiate Physical Therapy intervention for strengthening, bed mobility, transfers, gait, stairs, balance training, use of assistive device. DISCHARGE RECOMMENDATIONS: 78878 [x] Acute rehab or SNF for continued rehabilitation vs home with home health PT TREATMENT CODE/TIME: 56070 11:45?12:10 Slight errors may occur within document. Documentation completed with [employer] voice recognition software. PFSH All Active Problems (Updated 11/25/25 @ 17:10 by Orlando Crockett MD) Acute CVA (cerebrovascular accident) (Acute) Multifocal pneumonia (Acute) Hypomagnesemia (Acute) Myocardial injury (Acute) Leukocytosis (Acute) Acute lactic acidosis (Acute) Acute respiratory failure (Acute) Acute bronchitis (Acute) Abscess of groin, right (Acute) Breast pain, right (Acute) Class 2 obesity without serious comorbidity with body mass index (BMI) of 37.0 to 37.9 in adult (Acute) Smoker unmotivated to quit (Acute) History of prediabetes (Acute) Gynecomastia, male (Acute) Marijuana smoker, continuous (Acute) Ankle sprain (Acute) Cellulitis of leg, right (Acute) Abrasion of leg, right, infected (Acute) Medical History (Updated 11/25/25 @ 17:10 by Orlando Crockett MD) H/O allergic reaction to aspirin/NSAIDs, had observed trial at [facility] [place] Diabetes mellitus type 2, noninsulin dependent Migraine Anxiety Intracranial aneurysm Obesity (BMI 35.0-39.9 without comorbidity) Hypertension Surgical History Tympanic membrane rupture with repair History of thyroid surgery H/O right wrist surgery History of appendectomy Brain aneurysm Coiling and clipping x 2
[2025-11-26] MEDS: VANCOMYCIN/WATER (PEG) 1.75 GM/350 ML BAG IVPB ×2 (10:56→23:16)
[2025-11-26] MEDS: CEFEPIME 2 GM in Normal Saline 100 ML IVPB ×2 (10:56→18:46)
[2025-11-26] MEDS: Pantoprazole 40 MG VIAL IVP ×2 (10:58→22:55)
--- NOTE | 2025-11-26 14:00 | RT.EKG_ITS ---
APPROVED REPORT Exam: Resting ECG Reason for Exam: chest pressure Patient Location: I HR:81 bpm ECG Measurements Heart Rate 81 AXIS ME 145 P 86 QRSd 79 QRS 63 QT 360 T -5 QTc 418 Conclusion Sinus rhythm...normal P axis, V-rate 50- 99 Consider left ventricular hypertrophy...(S V1/V2+R V5/V6) >3.50mV Borderline T abnormalities, inferior leads...T flat/neg, II III aVF
[2025-11-26] MEDS: Calcium Carbonate *TUMS* 500 MG CHEW 1000 MG PO (14:11)
[2025-11-26] MEDS: Polyethylene Glycol 3350 17 GM PACKET PO (15:41)
--- NOTE | 2025-11-26 16:09 | W.PM.PROGNOT ---
Date of Service Date of service: 11/26/25 Time of Service: 08:00 Assessment and Plan Assessment and plan (1) Acute CVA (cerebrovascular accident): Status: Acute Assessment and plan: Likely TIA with symptoms resolving. Right-side deficits: facial droop, loss of voluntary motion in right arm and hand. Cognitive deficits: speech slower, more slurred, more word-finding difficulty CT head and CTA head/neck without acute findings. 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 R vertebral artery stent is patent and A1 clip/coil is without hemorrhage, MCAs patent. MRI without evidence of acute infarct. Nonspecific hypointensities seen Differential considerations include old cerebral microbleeds, trauma/diffuse axonal injury, vascular malformations, cerebral amyloid angiopathy or microbleeds related to old strokes Echocardiogram Friday. PT evaluation. November 26: Deficits resolved. Restarted antihypertensives, aspirin. (2) Acute respiratory failure: Status: Acute Assessment and plan: Chief complaint: shortness of breath Intubated in ED after failed NRB and NIV. Extubation failed Nov 23 due to agitation. Failed Nov 24 due to tachypnea RR > 40. Nov 24 concern [place] plug[place] [facility] [place]. Meanwhile tachypnea resolved. [facility] [place] starting withdrawal care with chlordiazepoxide. Nov 25 extubated without difficulty. Now on NC4-5L. CT imaging showing GGOs in BUL. Nov 26 Oxygenating well on NC2-3L. Lungs clearer (3) Severe sepsis: Status: Resolved Assessment and plan: Septic on admission requiring ICU stay for respiratory failure Appropriate emergent care including antibiotics, fluids Did not require pressors. Resolved. (4) Multifocal pneumonia: Status: Acute Assessment and plan: LL consolidation on chest imaging on arrival Nov 25 CVA workup imaging showing BUL infiltrates / GGOs Clinical improvement on antibiotics and steroids Continue vancomycin, cefepime, doxycyline, complete oseltamivir course Continue nebs Tapering off IV steroids, likely will start prednisone course tomorrow (5) Smoker unmotivated to quit: Status: Acute Assessment and plan: Started PRN nicotine patch Cessation counseling daily (6) Diabetes mellitus type 2, noninsulin dependent: Assessment and plan: Home regimen metformin, A1C 6.7 in August Steroid hyperglycemia, on insulin while hospitalized Correctional insulin today 32 units, will give 35u basal tonight (7) Class 2 obesity without serious comorbidity with body mass index (BMI) of 37.0 to 37.9 in adult: Status: Acute Assessment and plan: Noted. Has been loosing weight. Good GLP-1 candidate oil heaterman. (8) Myocardial injury: Status: Acute Assessment and plan: troponin initially increased by 14, but back down on trend. This is consistent with mild demand ischemia. EKG reassuring. He is on aspirin but I agree anticoagulation not indicated. Lipid panel with elevated triglycerides 190, low HDL, will start statin (9) Hypomagnesemia: Status: Acute Assessment and plan: Replete and recheck Subjective Subjective Interval history since last seen: Mr. Nice is awake and in good spirits with family at bedside. He has anxiety intermittently. Exam Narrative Exam Narrative: General: This is a pleasant man in bed, fatigued HEENT: Normocephalic, atraumatic. CV: RRR Resp: Coarse breath sounds in all jacobson, good movement of air on NC3L. Improved over prior day. Abd: soft, NTND MSK: voluntary motion x4 Neuro: A&Ox4. Right side deficits resolved. BUE strength 5/5. Able to stand after initial assistance. Objective Last Vital Signs Temp 37.1 C 11/26/25 12:00 Pulse 91 H 11/26/25 16:00 Resp 17 11/26/25 16:00 BP 145/85 H 11/26/25 15:10 Pulse Ox 94 11/26/25 16:04 Laboratory Results - last 24 hr 11/22/25 11/25/25 11/26/25 08:50 20:00 05:20 WBC 18.58 H RBC 4.61 Hgb 14.4 Hct 42.5 MCV 92 MCH 31.2 MCHC 33.9 RDW 11.9 Plt Count 213 MPV 9.7 Immature Gran % 0.7 Neutrophils % 86.0 Lymphocytes % 6.5 Monocytes % 6.5 Eosinophils % 0.1 Basophils % 0.2 Nucleated RBC % 0.0 Absolute Neutrophils 15.98 H Absolute Lymphocytes 1.21 Absolute Monocytes 1.21 H Absolute Eosinophils 0.02 Absolute Basophils 0.04 VBG pH 7.48 H VBG pCO2 37 L VBG pO2 104 VBG HCO3 28 VBG Total CO2 24 VBG O2 Saturation 99 VBG Base Excess 4 H Sodium 141 Potassium 3.5 D Chloride 105 Carbon Dioxide 27.0 Anion Gap 9 BUN 28 H Creatinine 0.61 L Est GFR (CKD-EPI 2021) 140.42 Glucose 229 H Calcium 9.1 Magnesium 2.1 Total Bilirubin 1.1 AST 32 ALT 22 Alkaline Phosphatase 50 Total Protein 6.6 Albumin 3.9 Vancomycin Trough 6.9 Urine Legionella Ag Negative PAWSS Have you Been Recently Intoxicated or Drunk Within the Last 30 days?: No Have you Ever Experienced Previous Episodes of Alcohol Withdrawal?: No Have you ever Experienced Withdrawal Seizures?: No Have you ever Experienced Delirium Tremens(DT)s?: No Have you ever undergone Alcohol Rehabilitation Treatment (i.e, inpt ot outpatient treatment programs)?: No Have you ever Experienced Blackouts?: No Have you ever Combined Alcohol with other Downers within the last 90 days?: No Have you ever Combined Alcohol with any other Substance of Abuse during the last 90 days?: No Positive Blood Alcohol level on Presentation? [PCS.BAL]: No Evidence of Increased Autonomic Activity (i.e. HR>120, tremor, sweating, agitation, nausea)?: No Result: 0 VTE Prohylaxis Risk Level: Moderate/High Risk Contraindications: None Prophylaxis: Pharmacologic Time Spent with Patient Time Spent with Patient: >50 minutes Time was spent: preparing to see the patient(eg.review tests), obtaining and/or reviewing separately otained hiistory, ordering medications,tests, procedures, referring, communicating with other health director of managed care, indepentently interpreting results, counseling the patient and care coordination
--- NOTE | 2025-11-26 16:51 | PT.INTREAT ---
PT Notes Visit Reasons: Hypoxic Respiratory Failure Inpatient Physical Therapy Treatment Note [facility] Date: 11/26/25 pm session PRECAUTIONS: Fall precautions SUBJECTIVE: Patient reports that he is tired. OBJECTIVE: VITALS: Monitored by nursing ? Therapeutic Activities (53904g[1]): Direct one-on-one instruction in dynamic activities to improve functional performance. ? BED MOBILITY/TRANSFERS? Sit-supine: min (A) for trunk and mod (A) for LE ? Sit-stand: CG of 2 with FWW ? Stand-sit: CG of 2 with FWW ? Chair-Bed: min (A) to CG of 2 to perform stand pivot transfer using FWW? Provided skilled cues and instruction on performance and technique throughout. ASSESSMENT:? Pt was significantly fatigued following spending approximately 45 minutes to 1 hour sitting upright in chair. However, he was still able to participate in stand pivot transfer back to bed. PLAN: 1-2x/day, 7 days/week x 1 week. Plan of care has been reviewed with the SPECIAL LIBRARY LIBRARIAN providing the service under Physical Therapy direction. Continue Physical Therapy intervention for strengthening, bed mobility, transfers, gait, stairs, balance training, use of assistive device. TREATMENT CODE/TIME: 92354 12:55-13:10 DISCHARGE RECOMMENDATION: Acute/subacute rehab vs home with HHPT
[2025-11-26] MEDS: Atorvastatin 40 MG TAB 80 MG PO (18:46)
[2025-11-26] MEDS: ACETAMINOPHEN 1,000 MG/100 ML BAG 400 MG IVPB (20:16)
[2025-11-26] MEDS: HYDROmorphone 2 MG/ML SYR 1 MG IVP (20:20)
[2025-11-26] MEDS: Insulin Glargine 300 UNITS/3 ML PEN 35 UNITS SC (20:23)
[2025-11-26] MEDS: traZODone 50 MG TAB PO (20:24)
[2025-11-26] MEDS: Melatonin 3 MG TAB 9 MG PO (20:24)
[2025-11-27] VITALS (21 sets, daily range): BP systolic 144–168; BP diastolic 80–104; PULSE 73–96; RESP 17–28; TEMP 36.5–36.8; O2SAT 89–100
[2025-11-27] MEDS: CEFEPIME 2 GM in Normal Saline 100 ML IVPB ×3 (03:41→21:22)
[2025-11-27] MEDS: Normal Saline Flush 10 ML SYR IVP ×4 (03:41→20:09)
[2025-11-27] MEDS: methylPREDNISolone SUCC 40 MG VIAL IVP ×2 (03:41→14:44)
[2025-11-27 06:44] LABS: Abs Immature Grans 0.16 10^3/uL (0.0-0.06); HCT 40.1 % (40.0-50.0); HGB 13.7 g/dL (13.5-17.5); Immature Grans % 1.1 %; MCH 31.6 pg (27.0-33.0); MCHC 34.2 % (32.0-36.0); MCV 93 fL (80-95); MPV 9.7 fL (8.0-11.0); Platelet Count 197 10^3/uL (130-400); RBC 4.33 10^6/uL (4.36-5.78); RDW 11.7 % (11.8-14.1); RDW-SD 39.8 fL; WBC 15.23 10^3/uL (4.4-10.8)
[2025-11-27 07:02] LABS: ALT 26 U/L (10-49); AST 21 U/L (<34); Albumin 3.6 g/dL (3.2-5.0); Alkaline Phosphatase 48 U/L (46-116); Anion Gap 7.8 mmol/L (3-11); BUN 24 mg/dL (9-23); Bilirubin, Total 0.9 mg/dL (0.2-1.2); CO2 27.2 mmol/L (20.0-31.0); Calcium 8.0 mg/dL (8.3-10.6); Chloride 109 mmol/L (98-107); Glucose 198 mg/dL (74-106); Potassium 3.6 mmol/L (3.5-5.1); Sodium 144 mmol/L (136-145); Total Protein 5.9 g/dL (5.7-8.2)
[2025-11-27 07:06] LABS: Magnesium 1.9 mg/dL (1.6-2.6)
[2025-11-27] MEDS: ACETAMINOPHEN 1,000 MG/100 ML BAG 400 MG IVPB (08:07)
[2025-11-27] MEDS: Insulin Aspart 300 UNITS/3 ML PEN SC ×4 (08:08→21:42)
[2025-11-27] MEDS: Enoxaparin 40 MG/0.4 ML SYR SC (08:08)
[2025-11-27] MEDS: Aspirin 81 MG CHEW PO (08:09)
[2025-11-27] MEDS: DOXYCYCLINE 100 MG in Normal Saline 100 ML IVPB ×2 (08:09→20:07)
[2025-11-27] MEDS: Oseltamivir 75 MG CAP PO (08:09)
[2025-11-27] MEDS: Albuterol/Ipratropium 3 ML UPD VIAL UPD ×3 (09:24→21:58)
[2025-11-27] MEDS: Losartan 25 MG TAB 50 MG PO ×2 (09:30→20:08)
[2025-11-27] MEDS: Pantoprazole 40 MG VIAL IVP ×2 (09:30→21:23)
[2025-11-27] MEDS: VANCOMYCIN/WATER (PEG) 1.75 GM/350 ML BAG IVPB ×2 (09:57→23:18)
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
--- NOTE | 2025-11-27 12:11 | NUR.NOTE ---
Nursing Note: REport rec'd from GYROSCOPE REPAIRER reviewing pt clinical pathway. Pt transferred to room 206 from ICU at 11:34. Pt oriented to room, call light system, and workflow. Family at bedside.
[2025-11-27] MEDS: guaiFENesin/D-METHORPHAN HB 5 ML CUP PO ×2 (14:49→20:15)
--- NOTE | 2025-11-27 16:26 | PTTR_ITS ---
PT Notes Visit Reasons: Hypoxic Respiratory Failure Inpatient Physical Therapy Treatment Note [facility] Date: 11/27/25 PRECAUTIONS: Fall precautions SUBJECTIVE: Patient was willing to work with PT. OBJECTIVE: Pt presented sitting in chair VITALS: Monitored by nursing ? Therapeutic Activities (51178s[1]): Direct one-on-one instruction in dynamic activities to improve functional performance. ? BED MOBILITY/TRANSFERS? Sit-stand: CG of 2 with FWW ? Stand-sit: CG of 2 with FWW ? Pt ambulated 40 ft with FWW and CG to min A of 1 and stand by of 2nd person ? Provided skilled cues and instruction on performance and technique throughout. ASSESSMENT:? Pt's endurance and tolerance for being OOB was significantly improved today. PLAN: 1-2x/day, 7 days/week x 1 week. Plan of care has been reviewed with the EMBEDDED SOFTWARE ARCHITECT providing the service under Physical Therapy direction. Continue Physical Therapy intervention for strengthening, bed mobility, transfers, gait, stairs, balance training, use of assistive device. TREATMENT CODE/TIME: 90553 12:50-13:10 DISCHARGE RECOMMENDATION: Acute/subacute rehab vs home with HHPT
[2025-11-27] MEDS: Atorvastatin 40 MG TAB 80 MG PO (20:08)
[2025-11-27] MEDS: Melatonin 3 MG TAB 9 MG PO (20:08)
[2025-11-27] MEDS: Acetaminophen 500 MG TAB 1000 MG PO (20:15)
[2025-11-27] MEDS: Insulin Glargine 300 UNITS/3 ML PEN 45 UNITS SC (21:14)
[2025-11-28] VITALS (7 sets, daily range): BP systolic 147–191; BP diastolic 87–103; PULSE 85–92; RESP 18–22; TEMP 37–37.3; O2SAT 93–96
[2025-11-28] MEDS: traZODone 50 MG TAB PO ×2 (01:31→20:14)
[2025-11-28] MEDS: methylPREDNISolone SUCC 40 MG VIAL IVP (01:31)
[2025-11-28] MEDS: CEFEPIME 2 GM in Normal Saline 100 ML IVPB (04:30)
[2025-11-28 07:30] LABS: Abs Immature Grans 0.29 10^3/uL (0.0-0.06); HCT 40.8 % (40.0-50.0); HGB 14.0 g/dL (13.5-17.5); Immature Grans % 1.8 %; MCH 31.3 pg (27.0-33.0); MCHC 34.3 % (32.0-36.0); MCV 91 fL (80-95); MPV 10.2 fL (8.0-11.0); Platelet Count 223 10^3/uL (130-400); RBC 4.47 10^6/uL (4.36-5.78); RDW 11.5 % (11.8-14.1); RDW-SD 38.7 fL; WBC 16.20 10^3/uL (4.4-10.8)
[2025-11-28 07:59] LABS: ALT 32 U/L (10-49); AST 21 U/L (<34); Albumin 3.8 g/dL (3.2-5.0); Alkaline Phosphatase 53 U/L (46-116); Anion Gap 9.9 mmol/L (3-11); BUN 18 mg/dL (9-23); Bilirubin, Total 0.8 mg/dL (0.2-1.2); CO2 25.1 mmol/L (20.0-31.0); Calcium 8.3 mg/dL (8.3-10.6); Chloride 106 mmol/L (98-107); Glucose 245 mg/dL (74-106); Potassium 4.1 mmol/L (3.5-5.1); Sodium 141 mmol/L (136-145); Total Protein 6.3 g/dL (5.7-8.2)
[2025-11-28] MEDS: Enoxaparin 40 MG/0.4 ML SYR SC (08:13)
[2025-11-28] MEDS: Normal Saline Flush 10 ML SYR IVP ×3 (08:13→20:14)
[2025-11-28] MEDS: Losartan 50 MG TAB 100 MG PO (08:14)
[2025-11-28] MEDS: Aspirin 81 MG CHEW PO (08:14)
[2025-11-28] MEDS: DOXYCYCLINE 100 MG in Normal Saline 100 ML IVPB (08:14)
[2025-11-28] MEDS: Insulin Aspart 300 UNITS/3 ML PEN SC ×4 (08:14→21:12)
[2025-11-28] MEDS: Pantoprazole 40 MG VIAL IVP ×2 (09:26→21:12)
[2025-11-28] MEDS: diazePAM 5 MG TAB PO (11:30)
[2025-11-28] MEDS: HYDROmorphone 2 MG/ML SYR 0.5 MG IVP (12:48)
--- NOTE | 2025-11-28 16:04 | TELEFU_ITS ---
Date of service: 11/28/25 Time of Service: 16:04 Nutrition Note NOTE: Visited with Jaswant today, who was extubated successfully on 11/25 and tolerating current regular diet (consistent carb diet order). Basal insulin increased to 45units last evening and continues on moderate sliding scale insulin aspart. Fingersticks trending down - 207 at lunch today, improved from 243 at breakfast and upper 200's and over 300 yesterday. Eating 100% at meals - denies concerns with chewing/swallowing. Jaswant's friend visiting - they were discussing the need to change Jaswant's eating habits-this is a wake up call. Jaswant with Lalo odomhkins and orange soda on his table. We discussed usual diet and Jaswant was consuming a lot of energy drinks and SSB's and diet he describes high in ultra-processed starches and high fat animal products. In discussion, Jaswant and his friend shared that he is a night eater, sometimes getting up in the middle of the night and heavily snacking without fully recalling it the next day. Jaswant reports his father with diabetes so he is a little familiar with the cond ition but does not have a good grasp of managing with diet. Would be interested in outpatient nutrition counseling and would prefer his mother come to - gave my card and I will contact after discharge to arrange. I proposed a CGM for him to monitor his glucose more regularly and helped him affix a dexcom G7. He downloaded the yohana but said he will wait until his mother visits to set up the account - I will check back with him in the morning to ensure it is working properly. We discussed the importance of limiting added sugar today. Will follow glucose labs and visit with patient again tomorrow to attempt to book outpatient visit when the CG times up. Time Spent in Nutritional Counseling and Treatment: 20 min
--- NOTE | 2025-11-28 16:43 | W.PM.PROGNOT ---
Date of Service Date of service: 11/28/25 Time of Service: 08:00 Assessment and Plan Assessment and plan (1) Acute CVA (cerebrovascular accident): Status: Acute Assessment and plan: Likely TIA with symptoms resolving. Right-side deficits: facial droop, loss of voluntary motion in right arm and hand. Cognitive deficits: speech slower, more slurred, more word-finding difficulty CT head and CTA head/neck without acute findings. 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 R vertebral artery stent is patent and A1 clip/coil is without hemorrhage, MCAs patent. MRI without evidence of acute infarct. Nonspecific hypointensities seen Differential considerations include old cerebral microbleeds, trauma/diffuse axonal injury, vascular malformations, cerebral amyloid angiopathy or microbleeds related to old strokes PT evaluation: rehab vs home health PT Deficits resolved as of November 26, restarted antihypertensives, aspirin. Echocardiogram with bubble, when available (2) Acute respiratory failure: Status: Resolved Assessment and plan: Chief complaint: shortness of breath Intubated in ED after failed NRB and NIV. Extubation failed Nov 23 due to agitation. Failed Nov 24 due to tachypnea RR > 40. Concern for mucous plug, discussed with [facility] critical care Nov 24. Tachypnea resolved during conversation. [facility] CC advised starting withdrawal care with chlordiazepoxide. Extubated without difficulty on November 25 CT imaging showing GGOs in BUL. Now breathing well on room air (3) Severe sepsis: Status: Resolved Assessment and plan: Septic on admission requiring ICU stay for respiratory failure Appropriate emergent care including antibiotics, fluids Did not require pressors. Resolved. (4) Multifocal pneumonia: Status: Acute Assessment and plan: LL consolidation on chest imaging on arrival Nov 25 CVA workup imaging showing BUL infiltrates / GGOs Clinical improvement on antibiotics and steroids Completed vancomycin, cefepime, doxycyline, oseltamivir, now discontinued Steroids discontinued Continue nebs PRN (5) Smoker unmotivated to quit: Status: Acute Assessment and plan: Started PRN nicotine patch Cessation counseling daily (6) Diabetes mellitus type 2, noninsulin dependent: Assessment and plan: Home regimen metformin, A1C 6.7 in August Steroid hyperglycemia, on insulin while hospitalized Anticipating improvement now that steroids are discontinued, should not have to DC on insulin (7) Class 2 obesity without serious comorbidity with body mass index (BMI) of 37.0 to 37.9 in adult: Status: Acute Assessment and plan: Patient interested in weight loss medication. He is struggling to find a PCP; family asked to assist with this. (8) Myocardial injury: Status: Acute Assessment and plan: troponin initially increased by 14, but back down on trend. This is consistent with mild demand ischemia. EKG reassuring. He is on aspirin but I agree anticoagulation not indicated. Lipid panel with elevated triglycerides 190, low HDL, will start statin (9) Hypomagnesemia: Status: Acute Assessment and plan: Replete and recheck Subjective Subjective Interval history since last seen: Mr. Nice continues to be emotionally volatile and had a panic attack after a phone call with his girlfriend. Discussed avoidance of stimulants. He does not have to go back to work soon. Mother and father at bedside, happy he's doing better. Exam Narrative Exam Narrative: General: This is a pleasant man in bed, fatigued HEENT: Normocephalic, atraumatic. CV: RRR Resp: Coarse breath sounds in all jacobson, no SOB on room air. Abd: soft, NTND MSK: voluntary motion x4 Neuro: A&Ox4. Right side deficits resolved. BUE strength 5/5. Able to stand after initial assistance. Objective Last Vital Signs Temp 37.3 C 11/28/25 10:54 Pulse 85 11/28/25 12:05 Resp 22 11/28/25 10:54 BP 168/92 H 11/28/25 12:05 Pulse Ox 94 11/28/25 12:05 Laboratory Results - last 24 hr 11/28/25 06:30 WBC 16.20 H RBC 4.47 Hgb 14.0 Hct 40.8 MCV 91 MCH 31.3 MCHC 34.3 RDW 11.5 L Plt Count 223 MPV 10.2 Immature Gran % 1.8 Neutrophils % 86.8 Lymphocytes % 8.0 Monocytes % 3.0 Eosinophils % 0.1 Basophils % 0.3 Nucleated RBC % 0.0 Absolute Neutrophils 14.06 H Absolute Lymphocytes 1.30 Absolute Monocytes 0.49 Absolute Eosinophils 0.02 Absolute Basophils 0.05 Sodium 141 Potassium 4.1 Chloride 106 Carbon Dioxide 25.1 Anion Gap 9.9 BUN 18 Creatinine 0.60 L Est GFR (CKD-EPI 2020) 143.12 Glucose 245 H Calcium 8.3 Total Bilirubin 0.8 AST 21 ALT 32 Alkaline Phosphatase 53 Total Protein 6.3 Albumin 3.8 PAWSS Have you Been Recently Intoxicated or Drunk Within the Last 30 days?: No Have you Ever Experienced Previous Episodes of Alcohol Withdrawal?: No Have you ever Experienced Withdrawal Seizures?: No Have you ever Experienced Delirium Tremens(DT)s?: No Have you ever undergone Alcohol Rehabilitation Treatment (i.e, inpt ot outpatient treatment programs)?: No Have you ever Experienced Blackouts?: No Have you ever Combined Alcohol with other Downers within the last 90 days?: No Have you ever Combined Alcohol with any other Substance of Abuse during the last 90 days?: No Positive Blood Alcohol level on Presentation? [PCS.BAL]: No Evidence of Increased Autonomic Activity (i.e. HR>120, tremor, sweating, agitation, nausea)?: No Result: 0 VTE Prohylaxis Risk Level: Moderate/High Risk Contraindications: None Prophylaxis: Pharmacologic Time Spent with Patient Time Spent with Patient: 25-34 minutes Time was spent: preparing to see the patient(eg.review tests), obtaining and/or reviewing separately otained hiistory, ordering medications,tests, procedures, referring, communicating with other health daycare director, indepentently interpreting results, counseling the patient and care coordination
--- NOTE | 2025-11-28 18:52 | PDOC.CMPRO ---
Date of service: 11/28/25 Time of Service: 18:52 Care Management Progress Note Progress Note Text Progress Note Text: Jaswant was sitting up in his chair when CM met with him. He stated that he is feeling much better today, and per MD, will be ready for discharge tomorrow. He stated that he plans to turn a new leaf and to focus on taking care of his health in the New Year. He stated that he needs a new PCP; CM explained the process for him to reach out to his desired PCP office and complete paperwork. He stated that he is no longer connected to [facility]; CM will verify this, as he will not be able to utilize the external relations director provider for follow up if he remains a patient in their office. Jaswant was pleasant and engaged well in conversation, sharing his goals for himself in the coming year. He stated that he has family that will transport him home when he is ready. CM will continue to follow. Discharge Potential Discharge Needs: PCP F/U Appt Anticipated Barriers to Discharge: None Identified Patient/Family Education Needs: Review discharge instructions, discuss Ask Me Three Transportation: Private vehicle Plan: Anticipate Jaswant will return home once medically cleared. He will transport home via private vehicle by family. He will follow up with his PCP and discharge plan of care. CM will continue to follow. Social Determinants of Health Screening Will the Patient Participate in the Screening?: Unable to obtain Do you worry about having a steady place to live?: no Comments: Pt is sedated on vent for hypoxic resp failure.
[2025-11-28] MEDS: Atorvastatin 40 MG TAB 80 MG PO (20:14)
[2025-11-28] MEDS: Melatonin 3 MG TAB 9 MG PO (20:14)
[2025-11-28] MEDS: guaiFENesin/D-METHORPHAN HB 5 ML CUP PO (20:15)
[2025-11-28] MEDS: Insulin Glargine 300 UNITS/3 ML PEN 45 UNITS SC (21:12)
[2025-11-29 07:12] LABS: HCT 42.2 % (40.0-50.0); HGB 14.8 g/dL (13.5-17.5); MCH 31.8 pg (27.0-33.0); MCHC 35.1 % (32.0-36.0); MCV 91 fL (80-95); MPV 9.5 fL (8.0-11.0); Platelet Count 239 10^3/uL (130-400); RBC 4.65 10^6/uL (4.36-5.78); RDW 11.7 % (11.8-14.1); RDW-SD 38.9 fL; WBC 14.57 10^3/uL (4.4-10.8)
[2025-11-29 07:35] LABS: ALT 81 U/L (10-49); AST 61 U/L (<34); Albumin 3.7 g/dL (3.2-5.0); Alkaline Phosphatase 56 U/L (46-116); Anion Gap 10.4 mmol/L (3-11); BUN 17 mg/dL (9-23); Bilirubin, Total 0.9 mg/dL (0.2-1.2); CO2 27.6 mmol/L (20.0-31.0); Calcium 8.2 mg/dL (8.3-10.6); Chloride 103 mmol/L (98-107); Glucose 158 mg/dL (74-106); Potassium 3.4 mmol/L (3.5-5.1); Sodium 141 mmol/L (136-145); Total Protein 6.2 g/dL (5.7-8.2)
[2025-11-29 07:59] LABS: Hemoglobin A1C 7.0 % (<5.7)
--- NOTE | 2025-11-29 08:00 | DI.US_ITS ---
APPROVED REPORT EXAM: Comprehensive 2D, Doppler, and color-flow Echocardiogram Patient Location: In-Patient Room/Bed: [facility] [place] Operator: Emelyn Troncoso RDCS (AE) Indications: TIA, Cocaine Echo Enhancing Agent Indication: Rule out Shunt Agent(s) / Amount(s) Used: Agitated Saline 30.0 cc Comments: Contrast study was performed with 3 IV injections of 10ccs of agitated normal saline, at rest, with cough and post valsalva maneuver. Negative contrast study for shunt flow. Other Information Study Quality: Adequate. Technically limited study due to body habitus. Conclusion Normal left ventricular wall thickness and chamber size. Ejection fraction is 60%. Wall motion is normal Normal right ventricular size and function Both atria are normal in size There is no structural or hemodynamically significant valvular disease No intracardiac shunting is identified with injection of agitated saline Wall motion Left Ventricle The left ventricle is normal size. The overall left ventricular systolic function appears low normal. There is normal left ventricular wall thickness. There is normal LV segmental wall motion. There is no ventricular septal defect visualized. LVEF is 60%. Right Ventricle The right ventricle is normal size. The right ventricular systolic function is normal. Atria The left atrium size is normal. The right atrium size is normal. The interatrial septum is intact with no evidence for an atrial septal defect. Saline bubble contrast intravenous injection does not demonstrate PFO. Aortic Valve The aortic valve is normal in structure. Aortic valve is trileaflet. There is no aortic valvular stenosis. No aortic regurgitation is present. Mitral Valve The mitral valve is normal in structure. No evidence of mitral valve stenosis. Trace mitral regurgitation. Tricuspid Valve The tricuspid valve is normal in structure. There is no tricuspid valve stenosis. Trace tricuspid regurgitation. Unable to assess PA pressure. Pulmonic Valve The pulmonary valve is normal in structure. There is no pulmonic valvular stenosis. Trace pulmonic regurgitation. Great Vessels The aortic root is normal in size. The ascending aorta is normal in size. Aortic arch is not well visualized. IVC is normal in size and collapses >50% with inspiration. Pericardium There is no pericardial effusion. 2D Dimensions IVSD d PLAX 1.10 cm M: 0.6-1.2 Ao Root d 3.33 cm M: 3.1 - 3.7 LVPW d PLAX 1.11 cm M: 0.6 - 1.2 Ao Asc Diam d 3.42 cm M: 2.6 - 3.4 LVID d PLAX 4.70 cm M: 4.2 - 5.8 LVDs 3.50 cm M: 2.5 - 4.0 LV EF Teichholz 50.9 % FS 25.92 % LV EDV (Teich) 102.1 mL LV ESV (Teich) 50.1 mL M-Mode TAPSE 2.78 cm (M/F) >1.7 Auto EF LV EDV A4C 143.6 mL LV EDV A2C 144.0 mL LV EDV BP 142.3 mL LV ESV A4C 72.4 mL LV ESV A2C 72.6 mL LV ESV BP 72.5 mL LVEF(%) A4C 49.6 % LVEF(%) A2C 49.6 % LVEF(%) BP 49.1 % LV SV A4C 71.2 ml LV SV A2C 71.5 ml LV SV BP 69.9 ml LV CO A4C 6.0 L/min LV CO A2C 6.0 L/min LV CO BP 6.0 L/min HR A4C 83.92 BPM HR A2C 83.88 BPM LV EDV Index (BP) LA Volume LA Length A4C 4.1 cm LA Length A2C 4.9 cm LA Area A4C s 12.28 cm2 LA Area A2C s 16.37 cm2 LA Vol A4C A-L 31.01 mL LA Vol A2C A-L 46.20 mL LA Vol Biplane A-L 41.4 mL LA Vol/BSA A4C A-L LA Vol/BSA A2C A-L LA Vol/BSA BP A-L 18.5 mL/m2 LA Vol A4C MOD 28.7 mL LA Vol A2C MOD 43.4 mL LA Vol BP MOD 38.2 mL RA Volume RA Area A4C 10.4 cm2 RA ESV A4C (A-L) 20.7mL RA Vol/BSA A4C A-L RA Length A4C 4.4 cm RA ESV A4C (MOD) 19.1mL LV Diastology MV E' medial 0.077 (>0.07 m/s) MV E Vmax 0.89 (0.4-1.3 m/s) MV E/E' MED 11.62 (<14) MV A Vmax 1.10 (0.4-1.3 m/s) MV E' lateral 0.113 (>0.1 m/s) E/A Ratio 0.8 MV E/E' LAT 7.87 (<14) MV E' Average 0.095 m/s MV E/E'(average) 9.38 Aortic Valve AoV Vmax 1.87 m/s LVOT Vmax 1.29 m/s AoV Peak Grad 14.0 mmHg LVOT Peak Grad 6.7 mmHg AoV Area (Vmax) 2.21 cm2 LVOT VTI 0.204 m AoV VTI 0.312 m LVOT Mean Grad 3.7 mmHg AoV Mean Alvaro. 1.28 m/s LVOT SV 65.05 mL AoV Mean Grad 7.5 mmHg LVOT Diam s 2.00 cm AoV Area (VTI) 2.08 cm2 AV Regurg Peak Gr. 13.97 mmHg Velocity Ratio 0.69 Mitral Valve MV DT 168 (160-240 msec) MV Vmax TIPS 1.07 m/s MV Mean Grad 2.0 (<2mmHg) MV VTI 0.291 m Pulmonary Valve PV Vmax 1.47 (0.5-1.5 m/s) RVOT Vmax 1.31 m/s PV Peak Grad 8.7 mmHg RVOT Peak Gr. 6.9 mmHg PV Mean Alvaro 0.92 m/s RVOT VTI 0.210 m PV Mean Grad 4.1 mmHg RVOT Mean Gr. 2.7 mmHg Tricuspid Valve TV S' 0.21 m/s
[2025-11-29 08:30] VITALS: BP 159/97; PULSE 94; RESP 18; TEMP 36.8; O2SAT 95
[2025-11-29] MEDS: Enoxaparin 40 MG/0.4 ML SYR SC (08:40)
[2025-11-29] MEDS: Losartan 50 MG TAB 100 MG PO (08:41)
[2025-11-29] MEDS: Normal Saline Flush 10 ML SYR IVP (08:41)
[2025-11-29] MEDS: Insulin Aspart 300 UNITS/3 ML PEN SC ×2 (08:41→12:09)
[2025-11-29] MEDS: Pantoprazole 40 MG VIAL IVP (08:41)
[2025-11-29] MEDS: Aspirin 81 MG CHEW PO (08:42)
--- NOTE | 2025-11-29 08:49 | PTTR_ITS ---
PT Notes Visit Reasons: Hypoxic Respiratory Failure Inpatient Physical Therapy Treatment Note [facility] Date: 11/28/2025 PRECAUTIONS: High fall risk per most recent Lebron Fall Scale. Standard. Acticity as tolerated. SUBJECTIVE: Patient was agreeable to walking farther today as long as he has something to hod onto. Much calmer with presence of his significant other, Marilyn. Denied chest pain but reported minimal headache that minimally limited today's performance. OBJECTIVE: PICC line through R UE. VITALS: After walking from room to therapy room: 140/105 mmHg, 93% on RA, and 96 bpm After doing stairs: 144/77 mmHg, 92% on RA, 99 bpm ? BED MOBILITY/TRANSFERS: Minimal cueing provided for use of B hands as needed for support, movement sequence, AD management, and posture to reduce fall risk and minimize pain report? sit-stand: stand by assist with FWW with definite use of hands for support? Stand-sit: stand by assist with FWW with definite use of hands for support GAIT: 200 feet + 200 feet using FWW with stand by assist. Karen decreased. Use of FWW decreased sensation of instability. Minimal shortness of breath and fatigue subsided with seated rest. Minimal cueing provided for AD management and safe directional change. STAIRS: Negotiated 6 x 4-inch steps and 2 x 6-inch steps while holding onto B rails for support. Contact guard assist and minimal verbal cueing for limb movement sequence and hadn placement for safety. Minimal shortness of breath and fatigue subsided with seated rest. ASSESSMENT:? Patient needed stand by assist for today's mobility assessment using the front- wheeled walker. Mild shortness of breath and fatigue subsided with seated rest. Will require HH PT vs OP PT for continued rehabilitation to regain prior mobility level. PLAN: 1-2x/day, 7 days/week x 1 week. Plan of care has been reviewed with the [employer] providing the service under Physical Therapy direction. Continue Physical Therapy intervention for strengthening, bed mobility, transfers, gait, stairs, balance training, use of assistive device. DISCHARGE RECOMMENDATION: HH PT vs OP PT TREATMENT CODE/TIME: 24142 x 36 minutes for 2 units (8:49-9:25).
--- NOTE | 2025-11-29 13:22 | DSE_ITS ---
Date of service: 11/29/25 Time of Service: 13:22 DS: Diagnosis Discharge Diagnosis (1) Acute CVA (cerebrovascular accident): Status: Acute (2) Acute respiratory failure: Status: Resolved (3) Severe sepsis: Status: Resolved (4) Multifocal pneumonia: Status: Acute (5) Smoker unmotivated to quit: Status: Acute (6) Diabetes mellitus type 2, noninsulin dependent: (7) Class 2 obesity without serious comorbidity with body mass index (BMI) of 37.0 to 37.9 in adult: Status: Acute (8) Myocardial injury: Status: Acute (9) Hypomagnesemia: Status: Acute Discharge Plan Disposition Patient Disposition: Home Anticipated Discharge Date/Time: 11/28/25 12:00 Condition: Good Discharge Details Reason For Visit: Hypoxic Respiratory Failure Admit Date/Time: 11/22/25 09:43 Admit Provider: Bang Henley Attending Provider: Bang Henley Primary Care Provider: Huong Gordon Hospital Course Hospital Course: 50-year-old male initially presented the emergency department on November 22, 2025 with shortness of breath progressing to respiratory failure requiring endotracheal intubation. This was found to be secondary to multifocal pneumonia and severe sepsis for which the patient was on vancomycin, cefepime and doxycycline as well as steroids and oseltamivir. Patient had difficulty with extubation but was ultimately successfully extubated on November 25, 2025. Additionally, patient had signs consistent with acute CVA with right-sided facial droop and loss of voluntary motion in the right hand with a negative head CT and MRI. Patient also had echocardiogram prior to discharge but results were not available at that time. However Alex, since extubation patient had significant improvement of his respiratory symptoms and complete resolution of his right-sided deficits and was ultimately determined to be stable for discharge home. Home Meds and New Rx's Prescriptions: New losartan 50 mg Tablet 100 mg PO DAILY Qty: 60 0RF atorvastatin 40 mg Tablet 80 mg PO QPM Qty: 60 0RF Continued hydroxyzine HCl 25 mg tablet 25 mg PO QHS PRN aspirin 81 mg Tablet,Chewable 81 mg PO DAILY acetaminophen [Acetaminophen Extra Strength] 500 mg Tablet 1,000 mg PO PRN PRN metformin 500 mg tablet 1,000 mg PO BID Patient Comments: TAKE ONE TABLET BY MOUTH TWICE A DAY Discharge Instructions Stand Alone Forms: Portal Information Referrals: Huong Gordon [Primary Care Provider, Medicine] - 12/09/25 1:45 pm Activity:: Activity as Tolerated Equipment/Supplies:: No Equipment Needed Diet:: As Tolerated Discharge Orders Discharge Orders: Discharge Order (Routine); Ordered 11/29/25 Ordered By: Ghassan Devlin DS: Summary Time Spent with Patient providing and/or coordinating discharge services: Greater than 30 minutes Status at Discharge Functional status at discharge: independent ambulation Overall status at discharge: patient is back to baseline Mental Status: mental status grossly normal Speech and Movement: speech and movement normal Mood: congruent mood Affect: normal affect Exam Narrative Exam Narrative: Well-appearing gentleman sitting up on the edge of the bed in no acute distress, ANO x 4, heart regular rhythm, lungs good auscultation bilaterally, abdomen soft, nontender, nondistended Psych Mental Status: mental status grossly normal Speech and Movement: speech and movement normal Mood: congruent mood Affect: normal affect DS: Data Vitals/I&O Vitals and I&O: Vital Signs Temperature 98.2 F 11/29/25 08:30 Temperature Source Temporal Artery Scan 11/29/25 08:30 Pulse 94 H 11/29/25 08:30 Pulse 85 11/27/25 10:01 Respiratory Rate 18 11/29/25 08:30 Respiratory Effort Non-Labored 11/25/25 11:30 Respiratory Depth Normal 11/22/25 11:45 Respiratory Pattern Tachypnea 11/22/25 11:45 Blood Pressure 159/97 H 11/29/25 08:30 Blood Pressure Mean 117 11/29/25 08:30 Blood Pressure Position Supine 11/22/25 11:45 Pulse Oximetry 95 11/29/25 08:30 Respiratory End-tidal CO2 37 11/25/25 07:47 Oxygen Delivery Method Room Air 11/29/25 08:30 Oxygen Flow Rate 0 11/29/25 08:30 Fraction of Inspired Oxygen (FIO2) 35 11/25/25 08:57 Pain Level 0 11/29/25 08:30 Comment See providers notification. 11/28/25 11:27 Comment pt sitting in chair, wouldnt stop talking to family/using arm. will repeat 11/26/25 17:41 Intake & Output 11/28/25 11/29/25 11/29/25 17:59 05:59 17:59 Intake Total 100 / 100 240 / 240 Output Total 800 / 800 Balance -700 / -700 240 / 240 Intake: IV 100 / 100 Oral 240 / 240 Output: Urine 800 / 800 Other: Urine Color Yellow Yellow Urine Appearance Clear Clear Urine Odor Normal Normal Comment Voided in toilet. Pt voided independently in the toilet. Stool Size Moderate Stool Characteristics Soft Formed Data Completed and Pending Pending Labs at Discharge: 11/22/25 11/22/25 11/22/25 07:27 08:35 08:50 WBC 15.77 H RBC 4.72 Hgb 14.8 Hct 42.6 MCV 90 MCH 31.4 MCHC 34.7 RDW 11.9 Plt Count 251 MPV 9.1 Immature Gran % 0.3 Neutrophils % 90.3 Band Neutrophils % Lymphocytes % 4.8 Atypical Lymphs % Monocytes % 3.9 Eosinophils % 0.5 Basophils % 0.2 Metamyelocytes % Myelocytes % Promyelocytes % Other Cells % Nucleated RBC % 0.0 Absolute Neutrophils 14.24 H Absolute Lymphocytes 0.76 L Absolute Monocytes 0.62 Absolute Eosinophils 0.08 Absolute Basophils 0.03 RBC Morphology Polychromasia Hypochromasia Poikilocytosis Basophilic Stippling Anisocytosis Microcytosis Macrocytosis Spherocytes Tear Drop Cells Ovalocytes Stomatocytes Aranda-Cecil-Bishop Bodies [place] Cells/Echinocytes Acanthocytes (Spur) Schistocytes D-Dimer 342 ABG Sample Site ABG pH ABG pCO2 ABG pO2 ABG HCO3 ABG Total CO2 ABG O2 Saturation ABG Base Excess VBG pH 7.46 H VBG pCO2 38 L VBG pO2 56 VBG HCO3 27 VBG Total CO2 23 L VBG O2 Saturation 92 VBG Base Excess 3 VBG Lactate 2.3 H* FiO2 Sodium 137 Potassium 3.8 Chloride 102 Carbon Dioxide 26.3 Anion Gap 8.7 BUN 10 Creatinine 0.78 Est GFR (CKD-EPI 2020) 105.74 Glucose 184 H Hemoglobin A1c Calcium 9.0 Phosphorus Magnesium 1.3 L Total Bilirubin 0.9 Conjugated Bilirubin 0.3 AST 32 ALT 31 Alkaline Phosphatase 69 Troponin I 38 Total Protein 7.6 Albumin 4.7 Triglycerides Total Cholesterol LDL Cholesterol, Calc HDL Cholesterol Urine Color Yellow Urine Clarity Clear Urine pH 5.5 Ur Specific [place] >= 1.030 H Urine Protein >=300 H Urine Ketones 15 H Urine Blood Small H Urine Nitrite Negative Urine Bilirubin Negative Urine Urobilinogen 0.2 Ur Leukocyte Esterase Negative Urine RBC 3-5 H Urine WBC Negative Ur Epithelial Cells Moderate Urine Crystals Negative Urine Bacteria Negative Urine Casts 3-5 Hyaline Urine Mucus Moderate Ur Culture Indicated? No Urine Glucose 100 H Vancomycin Trough Random Vancomycin Urine Opiates Screen Positive A Urine Methadone Screen Negative Ur Barbiturates Screen Negative Ur Tricyclics Screen Negative Ur Amphetamines Screen Negative U Benzodiazepines Scrn Negative Urine Cocaine Screen Positive A U Cannabinoids Screen Positive A COVID-19 Source Nasopharynx SARS-CoV-2 (PCR) Negative Influenza Type A (PCR) Negative Influenza Type B (PCR) Negative Urine Legionella Ag Negative RSV (PCR) Negative MRSA (TEM-PCR) Add-On Test Request DONE 11/22/25 11/22/25 11/22/25 10:00 10:04 11:55 WBC RBC Hgb Hct MCV MCH MCHC RDW Plt Count MPV Immature Gran % Neutrophils % Band Neutrophils % Lymphocytes % Atypical Lymphs % Monocytes % Eosinophils % Basophils % Metamyelocytes % Myelocytes % Promyelocytes % Other Cells % Nucleated RBC % Absolute Neutrophils Absolute Lymphocytes Absolute Monocytes Absolute Eosinophils Absolute Basophils RBC Morphology Polychromasia Hypochromasia Poikilocytosis Basophilic Stippling Anisocytosis Microcytosis Macrocytosis Spherocytes Tear Drop Cells Ovalocytes Stomatocytes Aranda-Cecil-Bishop Bodies [place] Cells/Echinocytes Acanthocytes (Spur) Schistocytes D-Dimer ABG Sample Site ABG pH ABG pCO2 ABG pO2 ABG HCO3 ABG Total CO2 ABG O2 Saturation ABG Base Excess VBG pH VBG pCO2 VBG pO2 VBG HCO3 VBG Total CO2 VBG O2 Saturation VBG Base Excess VBG Lactate FiO2 Sodium Potassium Chloride Carbon Dioxide Anion Gap BUN Creatinine Est GFR (CKD-EPI 2020) Glucose Hemoglobin A1c Calcium Phosphorus Magnesium Total Bilirubin Conjugated Bilirubin AST ALT Alkaline Phosphatase Troponin I 52 41 Total Protein Albumin Triglycerides Total Cholesterol LDL Cholesterol, Calc HDL Cholesterol Urine Color Urine Clarity Urine pH Ur Specific [place] Urine Protein Urine Ketones Urine Blood Urine Nitrite Urine Bilirubin Urine Urobilinogen Ur Leukocyte Esterase Urine RBC Urine WBC Ur Epithelial Cells Urine Crystals Urine Bacteria Urine Casts Urine Mucus Ur Culture Indicated? Urine Glucose Vancomycin Trough Random Vancomycin Urine Opiates Screen Urine Methadone Screen Ur Barbiturates Screen Ur Tricyclics Screen Ur Amphetamines Screen U Benzodiazepines Scrn Urine Cocaine Screen U Cannabinoids Screen COVID-19 Source SARS-CoV-2 (PCR) Influenza Type A (PCR) Influenza Type B (PCR) Urine Legionella Ag RSV (PCR) MRSA (TEM-PCR) Negative Add-On Test Request 11/22/25 11/22/25 11/22/25 15:05 18:22 20:02 WBC RBC Hgb Hct MCV MCH MCHC RDW Plt Count MPV Immature Gran % Neutrophils % Band Neutrophils % Lymphocytes % Atypical Lymphs % Monocytes % Eosinophils % Basophils % Metamyelocytes % Myelocytes % Promyelocytes % Other Cells % Nucleated RBC % Absolute Neutrophils Absolute Lymphocytes Absolute Monocytes Absolute Eosinophils Absolute Basophils RBC Morphology Polychromasia Hypochromasia Poikilocytosis Basophilic Stippling Anisocytosis Microcytosis Macrocytosis Spherocytes Tear Drop Cells Ovalocytes Stomatocytes Aranda-Cecil-Bishop Bodies [place] Cells/Echinocytes Acanthocytes (Spur) Schistocytes D-Dimer ABG Sample Site ABG pH ABG pCO2 ABG pO2 ABG HCO3 ABG Total CO2 ABG O2 Saturation ABG Base Excess VBG pH 7.28 L 7.30 L VBG pCO2 44 44 VBG pO2 82 73 VBG HCO3 20 L 21 L VBG Total CO2 19 L 19 L VBG O2 Saturation 96 95 VBG Base Excess -7 L -5 L VBG Lactate 5.6 H* 4.9 H* FiO2 Sodium Potassium Chloride Carbon Dioxide Anion Gap BUN Creatinine Est GFR (CKD-EPI 2020) Glucose Hemoglobin A1c Calcium Phosphorus Magnesium Total Bilirubin Conjugated Bilirubin AST ALT Alkaline Phosphatase Troponin I Total Protein Albumin Triglycerides Total Cholesterol LDL Cholesterol, Calc HDL Cholesterol Urine Color Urine Clarity Urine pH Ur Specific [place] Urine Protein Urine Ketones Urine Blood Urine Nitrite Urine Bilirubin Urine Urobilinogen Ur Leukocyte Esterase Urine RBC Urine WBC Ur Epithelial Cells Urine Crystals Urine Bacteria Urine Casts Urine Mucus Ur Culture Indicated? Urine Glucose Vancomycin Trough Random Vancomycin 7.7 Urine Opiates Screen Urine Methadone Screen Ur Barbiturates Screen Ur Tricyclics Screen Ur Amphetamines Screen U Benzodiazepines Scrn Urine Cocaine Screen U Cannabinoids Screen COVID-19 Source SARS-CoV-2 (PCR) Influenza Type A (PCR) Influenza Type B (PCR) Urine Legionella Ag RSV (PCR) MRSA (TEM-PCR) Add-On Test Request 11/23/25 11/23/25 11/23/25 01:46 05:30 06:08 WBC Cancelled 9.99 RBC Cancelled 4.32 L Hgb Cancelled 13.6 Hct Cancelled 41.2 MCV Cancelled 95 D MCH Cancelled 31.5 MCHC Cancelled 33.0 RDW Cancelled 12.1 Plt Count Cancelled 196 MPV Cancelled 9.7 Immature Gran % Cancelled 0.4 Neutrophils % Cancelled 90.0 Band Neutrophils % Cancelled Lymphocytes % Cancelled 4.4 Atypical Lymphs % Cancelled Monocytes % Cancelled 5.1 Eosinophils % Cancelled 0.0 Basophils % Cancelled 0.1 Metamyelocytes % Cancelled Myelocytes % Cancelled Promyelocytes % Cancelled Other Cells % Cancelled Nucleated RBC % Cancelled 0.0 Absolute Neutrophils Cancelled 8.99 H Absolute Lymphocytes Cancelled 0.44 L Absolute Monocytes Cancelled 0.51 Absolute Eosinophils Cancelled 0.00 Absolute Basophils Cancelled 0.01 RBC Morphology Cancelled Polychromasia Cancelled Hypochromasia Cancelled Poikilocytosis Cancelled Basophilic Stippling Cancelled Anisocytosis Cancelled Microcytosis Cancelled Macrocytosis Cancelled Spherocytes Cancelled Tear Drop Cells Cancelled Ovalocytes Cancelled Stomatocytes Cancelled Aranda-Cecil-Bishop Bodies Cancelled [place] Cells/Echinocytes Cancelled Acanthocytes (Spur) Cancelled Schistocytes Cancelled D-Dimer ABG Sample Site ABG pH ABG pCO2 ABG pO2 ABG HCO3 ABG Total CO2 ABG O2 Saturation ABG Base Excess VBG pH 7.30 L 7.32 VBG pCO2 48 48 VBG pO2 130 48 VBG HCO3 24 24 VBG Total CO2 21 L 22 L VBG O2 Saturation > 99 85 VBG Base Excess -3 L -2 VBG Lactate 3.2 H* FiO2 Sodium 144 Potassium 5.0 D Chloride 111 H Carbon Dioxide 24.5 Anion Gap 8.5 BUN 13 Creatinine 0.83 Est GFR (CKD-EPI 2020) 98.43 Glucose 288 H Hemoglobin A1c Calcium 8.5 Phosphorus Magnesium 2.1 Total Bilirubin 0.4 Conjugated Bilirubin AST 20 ALT 25 Alkaline Phosphatase 58 Troponin I Total Protein 6.6 Albumin 4.1 Triglycerides 190 H Total Cholesterol 159 LDL Cholesterol, Calc 86.9 HDL Cholesterol 34 L Urine Color Urine Clarity Urine pH Ur Specific [place] Urine Protein Urine Ketones Urine Blood Urine Nitrite Urine Bilirubin Urine Urobilinogen Ur Leukocyte Esterase Urine RBC Urine WBC Ur Epithelial Cells Urine Crystals Urine Bacteria Urine Casts Urine Mucus Ur Culture Indicated? Urine Glucose Vancomycin Trough Random Vancomycin Urine Opiates Screen Urine Methadone Screen Ur Barbiturates Screen Ur Tricyclics Screen Ur Amphetamines Screen U Benzodiazepines Scrn Urine Cocaine Screen U Cannabinoids Screen COVID-19 Source SARS-CoV-2 (PCR) Influenza Type A (PCR) Influenza Type B (PCR) Urine Legionella Ag RSV (PCR) MRSA (TEM-PCR) Add-On Test Request 11/24/25 11/24/25 11/24/25 06:17 06:56 13:44 WBC 15.61 H RBC 4.48 Hgb 14.3 Hct 42.2 MCV 94 MCH 31.9 MCHC 33.9 RDW 12.1 Plt Count 190 MPV 9.6 Immature Gran % Neutrophils % Band Neutrophils % Lymphocytes % Atypical Lymphs % Monocytes % Eosinophils % Basophils % Metamyelocytes % Myelocytes % Promyelocytes % Other Cells % Nucleated RBC % Absolute Neutrophils Absolute Lymphocytes Absolute Monocytes Absolute Eosinophils Absolute Basophils RBC Morphology Polychromasia Hypochromasia Poikilocytosis Basophilic Stippling Anisocytosis Microcytosis Macrocytosis Spherocytes Tear Drop Cells Ovalocytes Stomatocytes Aranda-Cec[place]-Bishop Bodies [place] Cells/Echinocytes Acanthocytes (Spur) Schistocytes D-Dimer ABG Sample Site Right Radial ABG pH 7.40 ABG pCO2 44 ABG pO2 72 L ABG HCO3 28 H ABG Total CO2 25 ABG O2 Saturation 95 ABG Base Excess 3 VBG pH 7.45 H VBG pCO2 41 VBG pO2 57 VBG HCO3 28 VBG Total CO2 24 VBG O2 Saturation 92 VBG Base Excess 4 H VBG Lactate 2.2 H* FiO2 40 Sodium 141 Potassium 4.2 Chloride 105 Carbon Dioxide 27.5 Anion Gap 8.5 BUN 18 Creatinine 0.87 Est GFR (CKD-EPI 2020) 93.22 Glucose 263 H Hemoglobin A1c Calcium 8.6 Phosphorus Magnesium Total Bilirubin 0.4 Conjugated Bilirubin AST 37 H ALT 22 Alkaline Phosphatase 50 Troponin I Total Protein 6.5 Albumin 3.9 Triglycerides Total Cholesterol LDL Cholesterol, Calc HDL Cholesterol Urine Color Urine Clarity Urine pH Ur Specific [place] Urine Protein Urine Ketones Urine Blood Urine Nitrite Urine Bilirubin Urine Urobilinogen Ur Leukocyte Esterase Urine RBC Urine WBC Ur Epithelial Cells Urine Crystals Urine Bacteria Urine Casts Urine Mucus Ur Culture Indicated? Urine Glucose Vancomycin Trough Random Vancomycin Urine Opiates Screen Urine Methadone Screen Ur Barbiturates Screen Ur Tricyclics Screen Ur Amphetamines Screen U Benzodiazepines Scrn Urine Cocaine Screen U Cannabinoids Screen COVID-19 Source SARS-CoV-2 (PCR) Influenza Type A (PCR) Influenza Type B (PCR) Urine Legionella Ag RSV (PCR) MRSA (TEM-PCR) Add-On Test Request 11/25/25 11/25/25 11/26/25 05:17 20:00 05:20 WBC 14.98 H 18.58 H RBC 4.59 4.61 Hgb 14.6 14.4 Hct 43.0 42.5 MCV 94 92 MCH 31.8 31.2 MCHC 34.0 33.9 RDW 11.9 11.9 Plt Count 175 213 MPV 9.4 9.7 Immature Gran % 0.3 0.7 Neutrophils % 83.6 86.0 Band Neutrophils % Lymphocytes % 9.9 6.5 Atypical Lymphs % Monocytes % 6.1 6.5 Eosinophils % 0.0 0.1 Basophils % 0.1 0.2 Metamyelocytes % Myelocytes % Promyelocytes % Other Cells % Nucleated RBC % 0.0 0.0 Absolute Neutrophils 12.52 H 15.98 H Absolute Lymphocytes 1.48 1.21 Absolute Monocytes 0.91 H 1.21 H Absolute Eosinophils 0.00 0.02 Absolute Basophils 0.01 0.04 RBC Morphology Polychromasia Hypochromasia Poikilocytosis Basophilic Stippling Anisocytosis Microcytosis Macrocytosis Spherocytes Tear Drop Cells Ovalocytes Stomatocytes Aranda-Cecil-Bishop Bodies [place] Cells/Echinocytes Acanthocytes (Spur) Schistocytes D-Dimer ABG Sample Site ABG pH ABG pCO2 ABG pO2 ABG HCO3 ABG Total CO2 ABG O2 Saturation ABG Base Excess VBG pH 7.41 7.48 H VBG pCO2 49 37 L VBG pO2 55 104 VBG HCO3 31 H 28 VBG Total CO2 27 24 VBG O2 Saturation 88 99 VBG Base Excess 7 H 4 H VBG Lactate FiO2 Sodium 141 141 Potassium 4.5 3.5 D Chloride 103 105 Carbon Dioxide 30.1 27.0 Anion Gap 7.9 9 BUN 20 28 H Creatinine 0.74 0.61 L Est GFR (CKD-EPI 2020) 112.36 140.42 Glucose 244 H 229 H Hemoglobin A1c Calcium 8.7 9.1 Phosphorus 3.8 Magnesium 2.1 2.1 Total Bilirubin 0.5 1.1 Conjugated Bilirubin AST 34 32 ALT 21 22 Alkaline Phosphatase 49 50 Troponin I Total Protein 6.7 6.6 Albumin 4.0 3.9 Triglycerides Total Cholesterol LDL Cholesterol, Calc HDL Cholesterol Urine Color Urine Clarity Urine pH Ur Specific [place] Urine Protein Urine Ketones Urine Blood Urine Nitrite Urine Bilirubin Urine Urobilinogen Ur Leukocyte Esterase Urine RBC Urine WBC Ur Epithelial Cells Urine Crystals Urine Bacteria Urine Casts Urine Mucus Ur Culture Indicated? Urine Glucose Vancomycin Trough 6.9 Random Vancomycin Urine Opiates Screen Urine Methadone Screen Ur Barbiturates Screen Ur Tricyclics Screen Ur Amphetamines Screen U Benzodiazepines Scrn Urine Cocaine Screen U Cannabinoids Screen COVID-19 Source SARS-CoV-2 (PCR) Influenza Type A (PCR) Influenza Type B (PCR) Urine Legionella Ag RSV (PCR) MRSA (TEM-PCR) Add-On Test Request 11/27/25 11/28/25 11/29/25 05:53 06:30 06:57 WBC 15.23 H 16.20 H 14.57 H RBC 4.33 L 4.47 4.65 Hgb 13.7 14.0 14.8 Hct 40.1 40.8 42.2 MCV 93 91 91 MCH 31.6 31.3 31.8 MCHC 34.2 34.3 35.1 RDW 11.7 L 11.5 L 11.7 L Plt Count 197 223 239 MPV 9.7 10.2 9.5 Immature Gran % 1.1 1.8 Neutrophils % 85.5 86.8 Band Neutrophils % Lymphocytes % 7.7 8.0 Atypical Lymphs % Monocytes % 5.2 3.0 Eosinophils % 0.3 0.1 Basophils % 0.2 0.3 Metamyelocytes % Myelocytes % Promyelocytes % Other Cells % Nucleated RBC % 0.0 0.0 Absolute Neutrophils 13.02 H 14.06 H Absolute Lymphocytes 1.17 L 1.30 Absolute Monocytes 0.79 0.49 Absolute Eosinophils 0.05 0.02 Absolute Basophils 0.03 0.05 RBC Morphology Polychromasia Hypochromasia Poikilocytosis Basophilic Stippling Anisocytosis Microcytosis Macrocytosis Spherocytes Tear Drop Cells Ovalocytes Stomatocytes Aranda-Cec[place]-Bishop Bodies [place] Cells/Echinocytes Acanthocytes (Spur) Schistocytes D-Dimer ABG Sample Site ABG pH ABG pCO2 ABG pO2 ABG HCO3 ABG Total CO2 ABG O2 Saturation ABG Base Excess VBG pH VBG pCO2 VBG pO2 VBG HCO3 VBG Total CO2 VBG O2 Saturation VBG Base Excess VBG Lactate FiO2 Sodium 144 141 141 Potassium 3.6 4.1 3.4 L Chloride 109 H 106 103 Carbon Dioxide 27.2 25.1 27.6 Anion Gap 7.8 9.9 10.4 BUN 24 H 18 17 Creatinine 0.62 L 0.60 L 0.58 L Est GFR (CKD-EPI 2020) 137.81 143.12 148.83 Glucose 198 H 245 H 158 H Hemoglobin A1c 7.0 H Calcium 8.0 L 8.3 8.2 L Phosphorus Magnesium 1.9 Total Bilirubin 0.9 0.8 0.9 Conjugated Bilirubin AST 21 21 61 H ALT 26 32 81 H Alkaline Phosphatase 48 53 56 Troponin I Total Protein 5.9 6.3 6.2 Albumin 3.6 3.8 3.7 Triglycerides Total Cholesterol LDL Cholesterol, Calc HDL Cholesterol Urine Color Urine Clarity Urine pH Ur Specific [place] Urine Protein Urine Ketones Urine Blood Urine Nitrite Urine Bilirubin Urine Urobilinogen Ur Leukocyte Esterase Urine RBC Urine WBC Ur Epithelial Cells Urine Crystals Urine Bacteria Urine Casts Urine Mucus Ur Culture Indicated? Urine Glucose Vancomycin Trough Random Vancomycin Urine Opiates Screen Urine Methadone Screen Ur Barbiturates Screen Ur Tricyclics Screen Ur Amphetamines Screen U Benzodiazepines Scrn Urine Cocaine Screen U Cannabinoids Screen COVID-19 Source SARS-CoV-2 (PCR) Influenza Type A (PCR) Influenza Type B (PCR) Urine Legionella Ag RSV (PCR) MRSA (TEM-PCR) Add-On Test Request PFSH All Active Problems (Updated 11/29/25 @ 13:21 by Ghassan Devlin MD) Acute CVA (cerebrovascular accident) (Acute) Multifocal pneumonia (Acute) Hypomagnesemia (Acute) Myocardial injury (Acute) Leukocytosis (Acute) Acute lactic acidosis (Acute) Acute bronchitis (Acute) Abscess of groin, right (Acute) Breast pain, right (Acute) Class 2 obesity without serious comorbidity with body mass index (BMI) of 37.0 to 37.9 in adult (Acute) Smoker unmotivated to quit (Acute) History of prediabetes (Acute) Gynecomastia, male (Acute) Marijuana smoker, continuous (Acute) Ankle sprain (Acute) Cellulitis of leg, right (Acute) Abrasion of leg, right, infected (Acute) Medical History (Updated 11/29/25 @ 13:21 by Ghassan Devlin MD) H/O allergic reaction to aspirin/NSAIDs, had observed trial at [facility] [place] Diabetes mellitus type 2, noninsulin dependent Migraine Anxiety Intracranial aneurysm Obesity (BMI 35.0-39.9 without comorbidity) Hypertension Surgical History Tympanic membrane rupture with repair History of thyroid surgery H/O right wrist surgery History of appendectomy Brain aneurysm Coiling and clipping x 2 Social History Smoking/Tobacco Use Status: Current every day Tobacco Type: cigarettes Smoking risk assessment performed?: Yes Alcohol Intake: former Drug use: Current Sobriety Substance use type: does not use Housing: house Do you feel safe at home: Yes Do you feel safe in your relationship?: Yes Time Spent with Patient Time Spent with Patient: <45 minutes Time was spent: preparing to see the patient(eg.review tests), obtaining and/or reviewing separately otained hiistory, ordering medications,tests, procedures, referring, communicating with other health child care provider, indepentently interpreting results, counseling the patient and care coordination
--- NOTE | 2025-11-29 14:17 | PDOC.CMDIS ---
Date of service: 11/29/25 Time of Service: 14:17 LACE Index Scoring Tool Questions: Length of Stay (in days): 7 - 13 Was the patient admitted via the E.D.?: Yes Comorbidities: Cerebrovascular Disease E.D. Visits: 2 Answers: Total Score: 11 Risk of Readmission: High Risk Care Management Discharge Plan Reason for Hospitalization: hypoxic respiratory failure Discharge Plan: Jaswant returned home today with no new services. His s/o drove him home via private vehicle. He will follow up with his PCP (12/09/25 at 1:45pm), and his discharge plan of care. He was happy to be going home. Patient/Family Education Needs: Review discharge instructions and limitations, discussion of self care needs including ask me three.
== END 2025-11-29 14:26 | disposition home or self-care (01) | DRG 871 ==
LOC: ER 09:31 → ICU 11:21 → MS 11-27 22:39
PROVIDERS: Hospitalist; Admitting Provider Family Medicine; Emergency Provider Emergency Medicine; PCP Nurse Practitioner Family; Responsible Provider Family Medicine; Visit Provider Family Medicine
DX: A41.9 Sepsis, unspecified organism (principal); J18.9 Pneumonia, unspecified organism; J96.01 Acute respiratory failure with hypoxia; I24.89 Other forms of acute ischemic heart disease; G45.9 Transient cerebral ischemic attack, unspecified; J11.1 Influenza due to unidentified influenza virus with other respiratory manifestations; R65.20 Severe sepsis without septic shock; F17.210 Nicotine dependence, cigarettes, uncomplicated; E66.812 Obesity, class 2; Z68.37 Body mass index [BMI] 37.0-37.9, adult; E83.42 Hypomagnesemia; Z79.84 Long term (current) use of oral hypoglycemic drugs; D72.829 Elevated white blood cell count, unspecified; F41.9 Anxiety disorder, unspecified; G43.909 Migraine, unspecified, not intractable, without status migrainosus; I10 Essential (primary) hypertension; F12.90 Cannabis use, unspecified, uncomplicated; R82.5 Elevated urine levels of drugs, medicaments and biological substances; R29.810 Facial weakness; R47.02 Dysphasia; Z86.73 Personal history of transient ischemic attack (TIA), and cerebral infarction without residual deficits; G83.21 Monoplegia of upper limb affecting right dominant side
CPT/HCPCS: 36410; 00123; 31500; 36415; 70496; 70498; 71045; 71250; 80048; 80053; 80061; 80076; 80307; 82805; 85027; 87040; 87449; 87637; 87641; 93005; 93308; 94640; 96365; 96366; 96367; 96368; 96375; 96376; 97162; 97530; 99291; J1650; 36600; 70450; 70551; 80202; 81003; 81015; 83036; 83605; 83735; 84100; 84484; 85025; 85379; 87070; 87205; 93010; 93306; 94002; 94003; 94760; 99223; 99231; 99232; 99233; 99238; J0131; J0692; J1171; J1815; J1938; J2470; J2704; J2919; J3010; J3360; J3373; J3475; J3490; J7613; J7614; J7620